=== PATIENT | male | born 1945 | race Caucasian/White ===

== ENCOUNTER 2016-09-30 10:33 | Day surgery (SDC) | payer OTHER ==
[~2016-09-30] VITALS: Ht 177.8 cm; Wt 73.5 kg
[~2016-09-30 10:33] MED LIST: CEFAZOLIN 1GM IVPB FOR OMNI 50 ML IV ONE; FENTANYL PF 100 MCG/2 ML VIAL. IV PRN; GLIM2TAB2 PO; GLIM4TAB2 PO; HYDROMORPHONE 2 MG/ML VIAL. IV PRN; INSU100V13 SQ; IV RINGERS,LACTATED 1000ML 1,000 ML IV SCH; LACT1CAP24 PO; LIDOCAINE 1% 1 ML SYRINGE. ID PRN; MIDO5TAB PO; MORPHINE SULFATE 2 MG/ML DISP.SYRIN. IV PRN; ONDANSETRON PF 4 MG/2 ML VIAL. IV PRN; PROCHLORPERAZINE 10 MG/2 ML VIAL. IV PRN
[2016-09-30] MEDS ORDERED: CEFAZOLIN 2GM PREMIX 0 ML IV ONE (10:43)
[2016-09-30] MEDS ORDERED: CEFAZOLIN 1GM IVPB FOR OMNI 50 ML IV ONE (10:44)
--- NOTE | 2016-09-30 11:21 | PDOC ---
BRIEF OPERATIVE NOTE Date: Sep 30, 2016 Pre-Op Diagnosis L plantar foot wound Post-Op Diagnosis same Procedure Performed I and D L plantar foot wound, down to muscle Surgeon Toby Anesthesia Type: General Blood Loss 50mL Complications none JUWAN WALLACE II, MD Sep 30, 2016 11:21
--- NOTE | 2016-09-30 11:22 | DISCH ---
DISCHARGE INSTRUCTIONS Condition on Discharge Condition on Discharge: Stable Activity After Discharge Activity Instructions for Disc: Activity as tolerated Other activity instructions: use walker, avoid putting weight on LLE Bathing Instructions: Shower-keep dressing dry Driving Instructions after Dis: Do not drive Weight Bearing Status after Di: Other, see below Diet after Discharge Diet after Discharge: Regular Wound Incision Care Wound/Incision Care: Keep wound/cast CDI, Keep wound elevated, Change dressing Contacting the DR. after DC Call your doctor for: Concerns you may have Follow-Up Follow up with: Toby in 1 wk JUWAN WALLACE II, MD Sep 30, 2016 11:22
[2016-09-30] MEDS ORDERED: INSULIN ASPART 100 UNIT/ML 10ML VIAL. SQ ONE ×2 (11:25→11:45)
[2016-09-30] MEDS ORDERED: PROPOFOL 20 ML IV ONE (12:03)
[2016-09-30] MEDS ORDERED: FENTANYL PF 100 MCG/2 ML VIAL. ONE (12:03)
[2016-09-30] MEDS ORDERED: LIDOCAINE 2% 100 MG/5 ML DISP.SYRIN. ONE (12:03)
[2016-09-30] MEDS ORDERED: LIDOCAINE 1% PF 30 ML VIAL. ONE (12:10)
[2016-09-30] MEDS ORDERED: BUPIVACAINE MPF 0.5% 30 ML VIAL. ONE (12:10)
[2016-09-30] MEDS ORDERED: DEXAMETHASONE SOD PHOS 20 MG/5 ML VIAL. ONE (12:32)
[2016-09-30] MEDS ORDERED: SEVOFLURANE 61 TO 120 MINUTES. IH ONE (12:32)
[2016-09-30] MEDS ORDERED: PHENYLEPHRINE in 0.9% NACL PF 1 MG/10 ML DISP.SYRIN. IV ONE (12:32)
[2016-09-30] MEDS ORDERED: ONDANSETRON PF 4 MG/2 ML VIAL. ONE (12:32)
[2016-09-30] MEDS ORDERED: EPHEDRINE PF IN SALINE 50 MG/5 ML DISP.SYRIN. IV ONE (12:33)
[2016-09-30] MEDS ORDERED: ONDA8TAB12 PO (13:13)
[2016-09-30] MEDS ORDERED: DOCU-27 PO (13:13)
[2016-09-30] MEDS ORDERED: HYDR-2762 PO (13:13)
[2016-09-30] MEDS ORDERED: HYDROCODONE/APAP 7.5/325MG TABLET. PO ONE (13:15)
[2016-09-30 13:54] VITALS: BP 137/58
--- NOTE | 2016-09-30 18:38 | OP ---
DATE OF SURGERY: 09/30/2016 SURGEON: Janes Wallace MD THAI MASSEUR: None. PREOPERATIVE DIAGNOSIS: Left diabetic plantar foot wound. POSTOPERATIVE DIAGNOSIS: Left diabetic plantar foot wound. PROCEDURE PERFORMED: 1. Irrigation and debridement down through muscle. 2. The wound size was approximately 7 cm x 7 cm and 1 cm deep. He still had a soft tissue covering over his fifth metatarsal distally. There was a fair amount of bleeding after the debridement as well. REASON FOR PROCEDURE: The patient is a gentleman, who I had seen in consultation initially in the hospital and performed a transmetatarsal amputation on his left lower extremity, which he had gone on to heal. He called my clinic recently and told me he noticed some drainage and foul odor coming from his foot and when I had seen and evaluated him, radiographs did not reveal any evidence of osteomyelitis, but he did have a large plantar foot wound with necrotic debris at its base. Given his sensation as well as the size of the wound, I discussed proceeding to the operating room for formal I and D and he elected to proceed. DESCRIPTION OF PROCEDURE: The patient was greeted in the preoperative area by myself. Correct extremity was marked and verified. He was taken to the operative suite and antibiotics started en route. Once he was in the OR, he was transferred gently supine to the OR table and secured to the bed with all pressure points padded and had successful induction of general anesthesia. We then proceeded to prep and drape left lower extremity in usual sterile fashion including Betadine paint. I then used a combination of a scalpel and rongeur to debride necrotic base of the wound as well as the wound edges. He had a fair amount of bleeding after this and I used cautery to help control some of the bleeding. I then irrigated this area with approximately 3000 mL sterile normal saline. We then cleansed and dried his left lower extremity and placed Xeroform in the wound bed followed by gauze and ABD, sterile cast padding, focusing on padding the heel as well and then Morro wrap. He tolerated the surgery well. At the conclusion of the surgery, he was awakened from anesthesia and transferred gently supine to the recovery room cart and taken to PACU in stable and extubated condition. Postop plan is to discharge him home today. He is to be nonweightbearing left lower extremity. We will see him back in clinic in 1 week to assess his wound healing progress. JANES WALLACE MD DR: MAXIMINO/brenda JOB#: [id number] / [id number]
== END 2016-09-30 17:15 | disposition home or self-care (01) ==
LOC: SURG 10:33
PROVIDERS: ATTEND Orthopaedic Surgery Sports Medicine
DX: L97.529 Non-pressure chronic ulcer of other part of left foot with unspecified severity (principal); E11.621 Type 2 diabetes mellitus with foot ulcer; I10 Essential (primary) hypertension; M19.90 Unspecified osteoarthritis, unspecified site
CPT/HCPCS: 11043; 11046; 82947; J0690; J1100; J2370; J2405; J2704; J3010; J1815; J3490

== ENCOUNTER 2016-10-20 12:54 | Inpatient (IN) | payer OTHER ==
[~2016-10-20] VITALS: Ht 177.8 cm; Wt 74.0 kg
[2016-10-20] VITALS (8 sets, daily range): BP systolic 74–140; BP diastolic 39–54
[~2016-10-20 12:54] MED LIST changes: -CEFAZOLIN 1GM IVPB FOR OMNI 50 ML IV ONE; +DOCU-27 PO; -FENTANYL PF 100 MCG/2 ML VIAL. IV PRN; +HYDR-2762 PO; -HYDROMORPHONE 2 MG/ML VIAL. IV PRN; -IV RINGERS,LACTATED 1000ML 1,000 ML IV SCH; -LIDOCAINE 1% 1 ML SYRINGE. ID PRN; -MORPHINE SULFATE 2 MG/ML DISP.SYRIN. IV PRN; +ONDA8TAB12 PO; -ONDANSETRON PF 4 MG/2 ML VIAL. IV PRN; -PROCHLORPERAZINE 10 MG/2 ML VIAL. IV PRN
[2016-10-20] MEDS ORDERED: DILTIAZEM 125 MG in IV DEXTROSE 5% 100 ML IV ONE (13:30)
[2016-10-20] MEDS ORDERED: DILTIAZEM IV PUSH 25 MG/5 ML VIAL. IVP ONE ×2 (13:30→14:00)
[2016-10-20] MEDS ORDERED: IV NORMAL SALINE 1000ML BAG 1,000 ML IV SCH (13:30)
--- NOTE | 2016-10-20 13:38 | PHYS DOC ---
Past Medical History Past Medical History: Diabetes-Type II, Hypotension Past Surgical History: Other Additional Past Surgical Histo: right foot bone scraping, R FOOT TOES AMPUTATION, L GREAT TOE AMPUTATION Alcohol Use: None Drug Use: None Adult General Chief Complaint Chief Complaint: WEAKNESS/GENERALIZED HPI HPI Patient is a 71 year old male who presents with complaint of generalized weakness per patient states his symptoms started yesterday. Patient states that due to worsening difficulty with ambulation he came to the emergency department for further evaluation. Patient was brought to the emergency department by EMS after they were called by the patient's daughter due to concern for the patient' s health. The patient states that he has been having chronic pain in his left foot secondary to a chronic wound. Patient states that he had the wound evaluated yesterday and had the wound dressed. Of note, the patient's dressings are currently soiled and wet. Patient states that he has been having shortness breath with exertion. Patient has history of diabetes mellitus. Patient denies any previous history of heart trouble. Review of Systems Review of Systems Constitutional: Lightheadedness, Denies fever or chills [] Eyes: Denies change in visual acuity, redness, or eye pain [] HENT: Denies nasal congestion or sore throat [] Respiratory: Dyspnea on exertion, denies cough [] Cardiovascular: Denies chest pain or edema [] GI: Denies abdominal pain, nausea, vomiting, bloody stools or diarrhea [] : Denies dysuria or hematuria [] Musculoskeletal: Left foot pain [] Integument: Left foot ulcer [] Neurologic: Denies headache, focal weakness or sensory changes [] Current Medications Current Medications Current Medications Medications (Trade) Dose Ordered Sig/Salena Start Time Stop Time Status Last Admin Dose Admin Diltiazem HCl (Cardizem) 20 mg 1X ONCE 10/20/16 14:00 10/20/16 14:01 DC 10/20/16 14:16 20 MG Diltiazem HCl 125 mg/Dextrose 125 ml @ 10 mls/hr 1X ONCE 10/20/16 13:30 10/21/16 01:59 10/20/16 13:49 10 MLS/HR Diltiazem HCl 20 mg 20 mg 1X ONCE 10/20/16 13:30 10/20/16 13:31 DC 10/20/16 13:35 20 MG Sodium Chloride (Iv Sodium Chloride 0.9% 1000ml Bag) 1,000 ml @ 100 mls/hr Q10H 10/20/16 13:30 10/20/16 23:29 10/20/16 13:45 100 MLS/HR Allergies Allergies Allergies Coded Allergies Type Severity Reaction Last Updated Verified Tetanus Vaccines and Toxoid Allergy Intermediate 10/20/16 Yes Physical Exam Physical Exam Constitutional: Alert, afebrile, appears ill. [] HENT: Normocephalic, atraumatic, bilateral external ears normal, oropharynx dry , no oral exudates, nose normal. [] Eyes: PERRLA, EOMI, conjunctiva normal, no discharge. [] Neck: Normal range of motion, no tenderness, supple, no stridor. [] Cardiovascular: Tachycardia, irregular rhythm, no murmur [] Lungs & Thorax: Bilateral breath sounds clear to auscultation [] Abdomen: Bowel sounds normal, soft, no tenderness, no masses, no pulsatile masses. [] Skin: Warm, dry, no erythema, no rash. [] Back: No tenderness, no CVA tenderness. [] Extremities: 5 cm necrotic diabetic ulcer along lateral aspect of left foot, status post bilateral mid foot amputations, no surrounding erythema or lymphangitic streaking. [] Neurologic: Alert and oriented X 3, normal motor function, normal sensory function, no focal deficits noted. [] Current Patient Data Vital Signs Vital Signs Date Time Temp Pulse Resp B/P Pulse Ox O2 Delivery O2 Flow Rate FiO2 10/20/16 14:16 132 137/65 10/20/16 13:05 98.3 28 97 Room Air 98.3 Lab Values Laboratory Tests Test 10/20/16 13:17 10/20/16 13:25 Glucose (Fingerstick) 351mg/dL (70-99) H White Blood Count 4.3x10^3/uL (4.0-11.0) Red Blood Count 4.98x10^6/uL (4.30-5.70) Hemoglobin 14.3g/dL (13.0-17.5) Hematocrit 42.9% (39.0-53.0) Mean Corpuscular Volume 86fL (79-100) Mean Corpuscular Hemoglobin 29pg (25-35) Mean Corpuscular Hemoglobin Concent 33g/dL (31-37) Red Cell Distribution Width 14.1% (11.5-14.5) Platelet Count 114x10^3/uL (140-400) L Neutrophils (%) (Auto) 96% (31-73) H Lymphocytes (%) (Auto) 2% (24-48) L Monocytes (%) (Auto) 1% (0-9) Eosinophils (%) (Auto) 0% (0-3) Basophils (%) (Auto) 1% (0-3) Neutrophils # (Auto) 4.1x10^3uL (1.8-7.7) Lymphocytes # (Auto) 0.1x10^3/uL (1.0-4.8) L Monocytes # (Auto) 0.0x10^3/uL (0.0-1.1) Eosinophils # (Auto) 0.0x10^3/uL (0.0-0.7) Basophils # (Auto) 0.0x10^3/uL (0.0-0.2) Segmented Neutrophils % 47% (35-66) Band Neutrophils % 47% (0-9) H Lymphocytes % 3% (24-48) L Basophils % 1% (0-3) Metamyelocytes % 2% (0-0) H Toxic Granulation Slight Toxic Vacuolation Mod Platelet Estimate Decreased (ADEQUATE) Giant Platelets Occ Erythrocyte Sedimentation Rate 99 (0-15) H Prothrombin Time 18.1SEC (11.7-14.0) H Prothrombin Time INR 1.6 (0.8-1.1) H Sodium Level 135mmol/L (136-145) L Potassium Level 4.4mmol/L (3.5-5.1) Chloride Level 96mmol/L (98-107) L Carbon Dioxide Level 24mmol/L (21-32) Anion Gap 15 (6-14) H Blood Urea Nitrogen 40mg/dL (8-26) H Creatinine 3.0mg/dL (0.7-1.3) H Estimated GFR (Cockcroft-Gault) 20.7 Glucose Level 331mg/dL (70-99) H Lactic Acid Level 5.9mmol/L (0.4-2.0) *H Calcium Level 8.9mg/dL (8.5-10.1) Magnesium Level 1.9mg/dL (1.8-2.4) Total Bilirubin 1.8mg/dL (0.2-1.0) H Direct Bilirubin 0.8mg/dL (0.0-0.2) H Aspartate Amino Transferase (AST) 23U/L (15-37) Alanine Aminotransferase (ALT) 10U/L (16-63) L Alkaline Phosphatase 106U/L (46-116) Creatine Kinase 427U/L (39-308) H Creatine Kinase MB (Mass) 3.8ng/mL (0.0-3.6) H Creatine Kinase MB Relative Index 0.9% (0-4) Troponin I Quantitative 0.026ng/mL (0.000-0.055) PM-Fzl-I-Type Natriuretic Peptide 31659ek/mL (0-124) H Total Protein 7.1g/dL (6.4-8.2) Albumin 1.9g/dL (3.4-5.0) L Thyroid Stimulating Hormone (TSH) 3.708uIU/mL (0.358-3.74) Laboratory Tests 10/20/16 13:25 Laboratory Tests 10/20/16 13:25 EKG EKG Interpreted by me: Heart rate 173, A. fib with RVR, left axis deviation, no acute ST/T-wave abnormalities present [] Radiology/Procedures Radiology/Procedures [facility] [address] [place] [address] IMAGING REPORT Signed PATIENT: ADAMA WIGGINS ACCOUNT: [id number] : 1945 LOCATION: ER AGE: 71 SEX: M EXAM STATUS: REG ER ORD. PHYSICIAN: SANGEETA DUARTE MD REASON: weakness, tachycardia, PROCEDURE: PORTABLE CHEST 1V EXAM: Chest one view. HISTORY: Weakness, tachycardia, hypotension. COMPARISON: 06/03/2016. FINDINGS: A frontal view of the chest is obtained. There is a mild airspace opacity in the right infrahilar distribution. There is no pneumothorax or pleural effusion. The heart is not enlarged. IMPRESSION: 1. Mild right infrahilar airspace opacity. Correlate for mild right middle lobe or right lower lobe pneumonia. DICTATED and SIGNED BY: MARCELA PRICE MD DATE: 10/20/16 1430 CC: ALCIRA TYSON MD; SANGEETA DUARTE MD ~ [] Course & Med Decision Making Course & Med Decision Making Pertinent Labs and Imaging studies reviewed. (See chart for details) Patient was started on IV diltiazem for rate control of A. fib with RVR. The patient's left foot wound also appears to be a potential source of infection as patient has exposed bone with surrounding foul-smelling necrotic tissue. The patient does not have a fever or white count but does have a significant bandemia as well as tachycardia. Patient also found to have elevated lactic acid levels. The patient meets criteria for severe sepsis. Patient's vital signs have remained stable and heart rate decreased with treatment with diltiazem. Patient was started on vancomycin and Zosyn for coverage of infected diabetic ulcer. Due to patient's evidence of heart strain and renal failure, I am concerned the patient may not be appropriate for full 30 mL per kilo bolus of IV fluids due to risk of fluid overload. For this reason the patient will be rehydrated at a slower rate then recommended for severe sepsis. I spoke with Dr. Simmons who accepted care patient in hospital. Consults were placed to Dr. Lawton of cardiology and Dr. Barba of nephrology. Critical care time excluding procedures: 45 minutes Dragon Disclaimer Dragon Disclaimer This electronic medical record was generated, in whole or in part, using a voice recognition dictation system. Departure Departure Impression: Primary Impression: Atrial fibrillation with RVR Additional Impressions: Severe sepsis Acute renal failure Lactic acidosis Uncontrolled diabetes mellitus Disposition: ADMITTED INPATIENT Admitting Physician: Elida Simmons Condition: GUARDED Referrals: RAYMUNDO PAREKH MD (PCP) Problem Qualifiers Additional Impressions: Acute renal failure Acute renal failure type: unspecified Qualified Code: N17.9 - Acute kidney failure, unspecified Uncontrolled diabetes mellitus Diabetes mellitus type: type 2 Diabetes mellitus complication status: with hyperglycemia Diabetes mellitus usp insulin use: unspecified usp insulin use status Qualified Code: E11.65 - Type 2 diabetes mellitus with hyperglycemia SANGEETA DUARTE MD Oct 20, 2016 13:38
[2016-10-20 13:41] LABS: BASO % 1 % (0-3); EOS % 0 % (0-3); HEMATOCRIT 42.9 % (39.0-53.0); HEMOGLOBIN 14.3 g/dL (13.0-17.5); LYMPH # 0.1 x10^3/uL (1.0-4.8); LYMPH % 2 % (24-48); MEAN CORPUSCULAR HEMOGLOBIN 29 pg (25-35); MEAN CORPUSCULAR HGB CONC 33 g/dL (31-37); MEAN CORPUSCULAR VOLUME 86 fL (79-100); MONO % 1 % (0-9); NEUT % 96 % (31-73); PLATELET COUNT 114 x10^3/uL (140-400); RED BLOOD COUNT 4.98 x10^6/uL (4.30-5.70); RED CELL DISTRIBUTION WIDTH 14.1 % (11.5-14.5); WHITE BLOOD COUNT 4.3 x10^3/uL (4.0-11.0)
[2016-10-20 13:49] LABS: INR 1.6 (0.8-1.1); PROTHROMBIN TIME PATIENT 18.1 SEC (11.7-14.0)
[2016-10-20 13:54] LABS: CALCIUM 8.9 mg/dL (8.5-10.1); GFR 20.7; POTASSIUM 4.4 mmol/L (3.5-5.1)
[2016-10-20 13:59] LABS: ALBUMIN 1.9 g/dL (3.4-5.0); DIRECT BILIRUBIN 0.8 mg/dL (0.0-0.2); MAGNESIUM 1.9 mg/dL (1.8-2.4); TOTAL BILIRUBIN 1.8 mg/dL (0.2-1.0); TOTAL PROTEIN 7.1 g/dL (6.4-8.2)
[2016-10-20 14:04] LABS: % BASOS 1 % (0-3)
[2016-10-20 14:06] LABS: PLT ESTIMATE DECREASED (ADEQUATE); TOXIC GRANULATION SLIGHT; TOXIC VACUOLATION MOD
[2016-10-20 14:07] LABS: CKMB INDEX 0.9 % (0-4); CKMB MASS 3.8 ng/mL (0.0-3.6)
--- NOTE | 2016-10-20 14:08 | EKG ---
[facility] [address] [place] [address] Test Date: 2016-10-20 Test Time: 13:09:44 Pat Name: ADAMA WIGGINS Department: Room: Gender: M [employer] Support [employer]st: : 1945 Requested By: SANGEETA DUARTE Order Number: [id number] Reading MD: Measurements Intervals [place] Rate: 173 P: 0 MA: 70 QRS: -62 QRSD: 70 T: 86 QT: 266 QTc: 459 Interpretive Statements SINUS TACHYCARDIA ATRIAL PREMATURE COMPLEX(ES) ABNORMAL LEFT AXIS DEVIATION LEFT ANTERIOR FASCICULAR BLOCK T ABNORMALITY IN HIGH LATERAL LEADS RI6.01 Unconfirmed report No previous ECG available for comparison
--- NOTE | 2016-10-20 14:34 | RAD ---
EXAM: Chest one view. HISTORY: Weakness, tachycardia, hypotension. COMPARISON: 06/03/2016. FINDINGS: A frontal view of the chest is obtained. There is a mild airspace opacity in the right infrahilar distribution. There is no pneumothorax or pleural effusion. The heart is not enlarged. IMPRESSION: 1. Mild right infrahilar airspace opacity. Correlate for mild right middle lobe or right lower lobe pneumonia.
[2016-10-20] MEDS ORDERED: PIP/TAZO PER PHARMACY MC PRN (14:45)
[2016-10-20] MEDS ORDERED: VANCOMYCIN PER PHARMACY MC PRN (14:45)
[2016-10-20] MEDS ORDERED: PIPERACILLIN/TAZOBACTAM 3.375 GM in IV NORMAL SALINE 50ML 50 ML IV ONE (15:00)
[2016-10-20] MEDS ORDERED: ONDANSETRON PF 4 MG/2 ML VIAL. IV PRN ×2 (15:00→15:12)
[2016-10-20] MEDS ORDERED: VANCOMYCIN 2 GM in IV NORMAL SALINE 500ML BAG 500 ML IV ONE (15:00)
[2016-10-20] MEDS ORDERED: FENTANYL PF 100 MCG/2 ML VIAL. IV PRN (15:00)
[2016-10-20] MEDS ORDERED: ACETAMINOPHEN 325 MG TABLET. PO PRN (15:00)
--- NOTE | 2016-10-20 15:25 | PDOC1 ---
History and Physical Date of Admission Date of Admission DATE: 10/20/16 TIME: 15:16 Identification/Chief Complaint Chief Complaint weak, dizzy Source Source: Caregiver, Chart review, Patient History of Present Illness History of Present Illness 71 y.o male who came from home, accompanied by son today, weakness, generalized. AT ER arrival, pale, abN labs including lactate 5.9, WBC normal, no fevers at home or at ER, no ESR, BUt nasty looking wound on left foot that has bone involvement, Seen by wound care already at ER, recs done. HX of osteo on other foot, has had all toes amputated there, AMbulates with cane. Also, Crea up to 3.0 , new, pt claims diarrhea x 4 days, no emesis. No fevers, ALso BS 330s, PCP unassigned, unknown hgba1c. CLaims only on SSI at home. No foot xrays done yet, AGAP 15, BAnds 47 Admitted for osteo, high BS, RHETT and dehydration ALso new a trial fib, 170s highest, now on carizem gtt at 15mcgs, HR 110, NO palpitations or CP, NO SOA Past Medical History Cardiovascular: HTN Infectious disease: Other (Osteomyelitis) Endocrine: Diabetes Past Surgical History Past Surgical History: Other (PICC line, amputation toes, R foot) Family History Family History: Hypertension, Family History Unknown Social History Smoke: No ALCOHOL: rare Drugs: None Current Medications Current Medications Current Medications Diltiazem HCl 20 mg 20 mg 1X ONCE IVP Last administered on 10/20/16 13:35; Start 10/20/16 at 13:30; Stop 10/20/16 at 13:31; Status DC Diltiazem HCl 125 mg/Dextrose 125 ml @ 10 mls/hr 1X ONCE IV Last administered on 10/20/16 13:49; Start 10/20/16 at 13:30; Stop 10/21/16 at 01:59 Sodium Chloride (Iv Sodium Chloride 0.9% 1000ml Bag) 1,000 ml @ 100 mls/hr Q10H IV Last administered on 10/20/16 13:45; Start 10/20/16 at 13:30; Stop at 23:29 Diltiazem HCl (Cardizem) 20 mg 1X ONCE IVP Last administered on 3/7/17at 14:16 ; Start 10/20/16 at 14:00; Stop 10/20/16 at 14:01; Status DC Vancomycin HCl (Vanco Per Pharmacy) 1 each PRN DAILY PRN MC SEE COMMENTS; Start 10/20/16 at 14:45; Status UNV Piperacillin Sod/ Tazobactam Sod 1 each 1 each PRN DAILY PRN MC SEE COMMENTS; Start 10/20/16 at 14:45; Status UNV Vancomycin HCl 2 gm/Sodium Chloride 500 ml @ 250 mls/hr 1X ONCE IV ; Start 10/20/16 at 15:00; Stop 10/20/16 at 16:59 Piperacillin Sod/ Tazobactam Sod/ Sodium Chloride (Zosyn/Iv Sodium Chloride 0.9 % 50ml) 50 ml @ 100 mls/hr 1X ONCE IV Last administered on 10/20/16t 15:04; Start 10/20/16 at 15:00; Stop 10/20/16 at 15:29 Ondansetron HCl (Zofran) 4 mg PRN Q8HRS PRN IV NAUSEA/VOMITING; Start 10/20/16 at 15:00; Stop 10/21/16 at 14:59; Status UNV Fentanyl Citrate 50 mcg 50 mcg PRN Q2HR PRN IV PAIN; Start 10/20/16 at 15:00; Stop 10/21/16 at 14:59; Status UNV Sodium Chloride (Iv Sodium Chloride 0.9% 1000ml Bag) 1,000 ml @ 100 mls/hr Q10H IV ; Start 10/20/16 at 14:56; Stop 10/21/16 at 14:55; Status UNV Acetaminophen (Tylenol) 650 mg PRN Q4HRS PRN PO FEVER; Start 10/20/16 at 15:00; Stop 10/21/16 at 14:59; Status UNV Active Scripts Active Reported Zofran Odt (Ondansetron) 8 Mg Tab.rapdis 1 Tab PO Q8HRS Colace (Docusate Sodium) 100 Mg Capsule 1 Cap PO BID Hydrocodone-Apap 7.5-325 (Hydrocodone Bit/Acetaminophen) 1 Each Tablet 1 Tab PO Q3HRS PRN Glimepiride 4 Mg Tablet 1 Tab PO BID Glimepiride 2 Mg Tablet 1 Tab PO BID Levemir (Insulin Detemir) 100 Unit/1 Ml Vial 30 Unit SQ HS Allergies Allergies: Coded Allergies: Tetanus Vaccines and Toxoid (Verified Allergy, Intermediate, 10/20/16) ROS General: YES: Other (gen weakness) PSYCHOLOGICAL ROS: No: Anxiety, Behavioral Disorder, Concentration difficultie , Decreased libido, Depression, Disorientation, Hallucinations, Hostility, Irritablity, Memory difficulties, Mood Swings, Obsessive thoughts, Other, Physical abuse, Sexual abuse, Sleep disturbances, Suicidal ideation Eyes: No Blurry vision, No Decreased vision, No Double vision, No Dry eyes, No Excessive tearing, No Eye Pain, No Itchy Eyes, No Loss of vision, No Other, No Photophobia, No Scotomata, No Uses contacts, No Uses glasses HEENT: No: Epistaxis, Heacaches, Hearing change, Nasal congestion, Nasal discharge, Oral lesions, Other, Sinus pain, Sneezing, Snoring, Sore Throat, Tinnitus, Vertigo, Visual Changes, Vocal changes ALLERGY AND IMMUNOLOGY: No: Hives, Insect Bite Sensitivity, Itchy/Watery Eyes, Nasal Congestion, Other, Post Nasal Drip, Seasonal Allergies Hematological and Lymphatic: No: Bleeding Problems, Blood Clots, Blood Transfusions, Brusing, Night Sweats, Other, Pallor, Swollen Lymph Nodes ENDOCRINE: No: Breast Changes, Galactorrhea, Hair Pattern Changes, Hot Flashes , Malaise/lethargy, Mood Swings, Other, Palpitations, Polydipsia/polyuria, Skin Changes, Temperature Intolerance, Unexpected Weight Changes Breast: No New/Changing Breast Lumps, No Nipple changes, No Nipple discharge, No Other Respiratory: No: Cough, Hemoptysis, Orthopnea, Other, Pleuritic Pain, SOB with excertion, Shortness of breath, Sputum Changes, Stridor, Tachypnea, Wheezing Cardiovascular: No Chest Pain, No Edema, No Lt Headedness, No Orthopnea, No Other, No Palpitations, No Paroxysmal Noc. Dyspnea Gastrointestinal: Yes Diarrhea Genitourinary: No , No , No , No , No , No , No , No Discharge, No Dysuria, No Flank Pain, No Frequency, No Hematuria, No Incontinence, No Other, No Pain, No Retention, No Urgency Neurological: No Behavorial Changes, No Bowel/Bladder ControlChng, No Confusion , No Dizziness, No Gait Disturbance, No Headaches, No Impaired Coord/balance, No Memory Loss, No Numbness/Tingling, No Other, No Seizures, No Speech Problems , No Tremors, No Visual Changes, No Weakness Skin: Yes Other (wound left foot) Physical Exam General: Alert, Oriented X3, Cooperative, No acute distress HEENT: Atraumatic, PERRLA, EOMI Lungs: Clear to auscultation, Normal air movement Heart: RRR, no gallops, no murmurs, other (irreg irreg) Cardiovascular: S1, S2 Breasts: Normal Abdomen: Normal bowel sounds, Soft, No tenderness, No hepatosplenomegaly, No masses Male Genitals Exam: normal genitalia, normal prostate Rectal Exam: not examined Extremities: No clubbing, No cyanosis Skin: Other (Left foot exposed bone, woundm, infection, foul drainage) Neuro: Normal gait, Normal speech, Strength at 5/5 X4 ext, Normal tone, Sensation intact, Cranial nerves 3-12 NL, Reflexes 2+ Psych/Mental Status: Mental status NL, Mood NL Vitals Vitals Vital Signs Date Time Temp Pulse Resp B/P Pulse Ox O2 Delivery O2 Flow Rate FiO2 10/20/16 15:07 100 101/58 95 Room Air 10/20/16 13:05 98.3 28 98.3 Labs Labs Laboratory Tests Test 10/20/16 13:17 10/20/16 13:25 10/20/16 14:50 Glucose (Fingerstick) 351mg/dL (70-99) White Blood Count 4.3x10^3/uL (4.0-11.0) Red Blood Count 4.98x10^6/uL (4.30-5.70) Hemoglobin 14.3g/dL (13.0-17.5) Hematocrit 42.9% (39.0-53.0) Mean Corpuscular Volume 86fL (79-100) Mean Corpuscular Hemoglobin 29pg (25-35) Mean Corpuscular Hemoglobin Concent 33g/dL (31-37) Red Cell Distribution Width 14.1% (11.5-14.5) Platelet Count 114x10^3/uL (140-400) Neutrophils (%) (Auto) 96% (31-73) Lymphocytes (%) (Auto) 2% (24-48) Monocytes (%) (Auto) 1% (0-9) Eosinophils (%) (Auto) 0% (0-3) Basophils (%) (Auto) 1% (0-3) Neutrophils # (Auto) 4.1x10^3uL (1.8-7.7) Lymphocytes # (Auto) 0.1x10^3/uL (1.0-4.8) Monocytes # (Auto) 0.0x10^3/uL (0.0-1.1) Eosinophils # (Auto) 0.0x10^3/uL (0.0-0.7) Basophils # (Auto) 0.0x10^3/uL (0.0-0.2) Segmented Neutrophils % 47% (35-66) Band Neutrophils % 47% (0-9) Lymphocytes % 3% (24-48) Basophils % 1% (0-3) Metamyelocytes % 2% (0-0) Toxic Granulation Slight Toxic Vacuolation Mod Platelet Estimate Decreased (ADEQUATE) Giant Platelets Occ Prothrombin Time 18.1SEC (11.7-14.0) Prothromb Time International Ratio 1.6 (0.8-1.1) Sodium Level 135mmol/L (136-145) Potassium Level 4.4mmol/L (3.5-5.1) Chloride Level 96mmol/L (98-107) Carbon Dioxide Level 24mmol/L (21-32) Anion Gap 15 (6-14) Blood Urea Nitrogen 40mg/dL (8-26) Creatinine 3.0mg/dL (0.7-1.3) Estimated GFR (Cockcroft-Gault) 20.7 Glucose Level 331mg/dL (70-99) Lactic Acid Level 5.9mmol/L (0.4-2.0) 3.7mmol/L (0.4-2.0) Calcium Level 8.9mg/dL (8.5-10.1) Magnesium Level 1.9mg/dL (1.8-2.4) Total Bilirubin 1.8mg/dL (0.2-1.0) Direct Bilirubin 0.8mg/dL (0.0-0.2) Aspartate Amino Transf (AST/SGOT) 23U/L (15-37) Alanine Aminotransferase (ALT/SGPT) 10U/L (16-63) Alkaline Phosphatase 106U/L (46-116) Creatine Kinase 427U/L (39-308) Creatine Kinase MB (Mass) 3.8ng/mL (0.0-3.6) Creatine Kinase MB Relative Index 0.9% (0-4) Troponin I Quantitative 0.026ng/mL (0.000-0.055) BG-Wzj-P-Type Natriuretic Peptide 78770rg/mL (0-124) Total Protein 7.1g/dL (6.4-8.2) Albumin 1.9g/dL (3.4-5.0) Thyroid Stimulating Hormone (TSH) 3.708uIU/mL (0.358-3.74) Laboratory Tests Test 10/20/16 13:17 10/20/16 13:25 10/20/16 14:50 Glucose (Fingerstick) 351mg/dL (70-99) White Blood Count 4.3x10^3/uL (4.0-11.0) Red Blood Count 4.98x10^6/uL (4.30-5.70) Hemoglobin 14.3g/dL (13.0-17.5) Hematocrit 42.9% (39.0-53.0) Mean Corpuscular Volume 86fL (79-100) Mean Corpuscular Hemoglobin 29pg (25-35) Mean Corpuscular Hemoglobin Concent 33g/dL (31-37) Red Cell Distribution Width 14.1% (11.5-14.5) Platelet Count 114x10^3/uL (140-400) Neutrophils (%) (Auto) 96% (31-73) Lymphocytes (%) (Auto) 2% (24-48) Monocytes (%) (Auto) 1% (0-9) Eosinophils (%) (Auto) 0% (0-3) Basophils (%) (Auto) 1% (0-3) Neutrophils # (Auto) 4.1x10^3uL (1.8-7.7) Lymphocytes # (Auto) 0.1x10^3/uL (1.0-4.8) Monocytes # (Auto) 0.0x10^3/uL (0.0-1.1) Eosinophils # (Auto) 0.0x10^3/uL (0.0-0.7) Basophils # (Auto) 0.0x10^3/uL (0.0-0.2) Segmented Neutrophils % 47% (35-66) Band Neutrophils % 47% (0-9) Lymphocytes % 3% (24-48) Basophils % 1% (0-3) Metamyelocytes % 2% (0-0) Toxic Granulation Slight Toxic Vacuolation Mod Platelet Estimate Decreased (ADEQUATE) Giant Platelets Occ Prothrombin Time 18.1SEC (11.7-14.0) Prothromb Time International Ratio 1.6 (0.8-1.1) Sodium Level 135mmol/L (136-145) Potassium Level 4.4mmol/L (3.5-5.1) Chloride Level 96mmol/L (98-107) Carbon Dioxide Level 24mmol/L (21-32) Anion Gap 15 (6-14) Blood Urea Nitrogen 40mg/dL (8-26) Creatinine 3.0mg/dL (0.7-1.3) Estimated GFR (Cockcroft-Gault) 20.7 Glucose Level 331mg/dL (70-99) Lactic Acid Level 5.9mmol/L (0.4-2.0) 3.7mmol/L (0.4-2.0) Calcium Level 8.9mg/dL (8.5-10.1) Magnesium Level 1.9mg/dL (1.8-2.4) Total Bilirubin 1.8mg/dL (0.2-1.0) Direct Bilirubin 0.8mg/dL (0.0-0.2) Aspartate Amino Transf (AST/SGOT) 23U/L (15-37) Alanine Aminotransferase (ALT/SGPT) 10U/L (16-63) Alkaline Phosphatase 106U/L (46-116) Creatine Kinase 427U/L (39-308) Creatine Kinase MB (Mass) 3.8ng/mL (0.0-3.6) Creatine Kinase MB Relative Index 0.9% (0-4) Troponin I Quantitative 0.026ng/mL (0.000-0.055) FS-Dtu-B-Type Natriuretic Peptide 98638lm/mL (0-124) Total Protein 7.1g/dL (6.4-8.2) Albumin 1.9g/dL (3.4-5.0) Thyroid Stimulating Hormone (TSH) 3.708uIU/mL (0.358-3.74) VTE Prophylaxis Ordered VTE Prophylaxis Devices: Yes VTE Pharmacological Prophylaxi: Yes Assessment/Plan Assessment/Plan 1. Left foot osteomyelitis, highly likely 2. DM 2 uncontrolled 3. HTN 4, NEw Atrial fib 5. Sepsis infectious in etiology with RHETT and organ dysfunction 6. RHETT, GI loss 7 Acute diarrhea 8. Hx osteomyelitis R foot 9. Sepsis with bandemia 10, Mild thrombocytopenia 11. AGAP met acidosis sec to sepsis PLAn: IV broad spectrum ID and ortho consult RAte control a fib CArds consult Start DVT prohy matthew given new atrial fib- WOF further dec plateelts PT/OT WOund care IVF Recheck BMP amparo NUtrition consult Wound care consult SSI high dose Check ESR Check hgba1c Recheck lactate amparo Await home meds Renal consulted at ER level WIll need 6-8 weeks antibiotics, might even amputation Seen at ER Dw pt and chris CASTRO complex DEYANIRA JUAN MD Oct 20, 2016 15:24
[2016-10-20] MEDS ORDERED: IV NORMAL SALINE 500ML BAG 500 ML IV ONE (15:30)
--- NOTE | 2016-10-20 16:05 | RAD ---
AP and lateral left foot radiographs 10/20/2016 Clinical history: Ulcer involving the plantar aspect of the left foot. History of osteomyelitis. AP and lateral digital radiographs of the left foot were obtained. Comparison study is dated 09/02/2016. 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 The proximal metaphysis of the left fifth metatarsal appears to have been resected since the previous examination. A portion of the proximal metaphysis of the left fourth metatarsal appears to have been resected. Soft tissue swelling and irregularity is seen. No acute fracture or dislocation is noted. Bony irregularity of the distal aspect of the medial cuneiform bone and the distal aspect of the proximal metaphysis of the left second third and fourth metatarsals is seen which is presumably postsurgical. These findings could be seen with osteomyelitis, however. Degenerative changes are seen involving the midtarsal joints in the left ankle, unchanged. Moderate enthesophyte formation formation is seen involving the plantar aspect of the left calcaneus. Impression: Postsurgical changes are seen involving the left foot as outlined above. Soft tissue swelling surrounds the distal aspect of the left foot. Bony irregularity is seen in this region which could reflect surgical changes; however, osteomyelitis is not excluded.
--- NOTE | 2016-10-20 16:29 | ACF ---
Admission Forms Criteria OSTEOMYELITIS Clinical Indications for Admission to Inpatient Care (Place 'X' for any and all applicable criteria) Admission is indicated by ANY ONE of the following (1)(2)(3)(4)(5)(6): [ ] I. Significant systemic illness indicated by 2 or more of the following: [ ]a) Core (eg rectal) temperature greater or equal wt803Y(37.8C) in an adult [ ]b) Oral temperature[A] greater than or equal to 99.3 degrees F ( 37.4 degrees C) in an adult [ ]c) Heart rate greater than 90 beats per minute [ ]d) Respiratory rate greater than 20 breaths per minute or PaCO2 less than 32 mm Hg (4.3 kPa) [ ]e) White blood cell count > 12,000/mm3 (12 x109/L) or < 4000/mm3 ( 4 x109/L) or > 10% band cells [ ] II. Hemodynamic instability [ ] III. Severe pain requiring acute inpatient management [ ] IV. Bacteremia [ ] V. Mental status change (new) [X] . Limb-threatening infection [ ] VII. Suspected necrotizing soft tissue infection (e.g., gas in tissue) [ ] VIII.Surgical intervention required (e.g., bone or soft tissue debridement, removal of foreign body, or revascularization procedure) not performable in outpatient or emergency department level of care(7) [ ] IX. Appropriate monitoring and therapy (IV antibiotics) cannot be immediately arranged for home or outpatient setting [ ] XI. Outpatient treatment failure (e.g., resistant organism identified, adverse medication effect, progression or lack of sufficient improvement of infection) [ ] XII. High-risk comorbid condition present including ANY ONE of the following : [ ]a) Poorly controlled diabetes (e.g., HbA1c greater than 10% (0.1)) [ ]b) Vascular insufficiency to affected area [ ]c) Cirrhosis [ ]d) Neutropenia [ ]e) Asplenia [ ]f) Immunosuppression (e.g., chronic systemic corticosteroid use) [ ]g) Symptomatic heart failure [ ] XIII.Joint involvement (e.g., septic arthritis) suspected [ ] XIV. Vertebral osteomyelitis [ ] XV. Skull-base osteomyelitis (e.g.,"malignant external otitis")[A](8)(9)(10 ) Extended stay beyond goal length of stay may be needed for(1)(3)(4)(5)(24)(25): [ ]a) Inadequate clinical response to antibiotics (e.g., continued fever, hypotension) [ ]b) Bacteremia [ ]c) Surgical intervention needed (e.g., beyond superficial debridement)(26) [ ]d) Vertebral osteomyelitis with spinal cord compression, abscess formation, or mechanical instability [ ]e) Antibiotic-resistant organism identified (e.g., methicillin-resistant Staphylococcal aureus) [ ]f) Deep venous thrombosis [ ]g) Unstable comorbidities (e.g., heart failure, renal insufficiency, immunosuppressed state)(28) The original [facility] [employer] content created by [facility] [employer] has been revised. The portions of the content which have been revised are identified through the use of italic text or in bold, and [facility] has neither reviewed nor approved the modified material. All other unmodified content is copyright [facility] [employer] 2016. Admission Criteria Met?: Yes RACHEL BHATT Oct 20, 2016 16:29
[2016-10-20] MEDS: GLIMEPIRIDE 2 MG TABLET PO SCH (17:32)
[2016-10-20] MEDS: INSULIN ASPART 300 UNITS/3 ML INSULN.PEN SQ SCH (18:23)
[2016-10-20] MEDS ORDERED: DOPAMINE 400MG/250ML PREMIX 250 ML IV PRN (19:30)
[2016-10-20] MEDS: IV NORMAL SALINE 1000ML BAG 1,000 ML IV SCH (19:46)
[2016-10-20] MEDS ORDERED: DIGOXIN 500 MCG/2 ML AMPUL. IV ONE (20:45)
[2016-10-20] MEDS ORDERED: INSULIN DETEMIR 300 UNITS/3 ML INSULN.PEN. SQ SCH (21:00)
[2016-10-20] MEDS ORDERED: GLIMEPIRIDE 2 MG TABLET PO SCH (21:00)
[2016-10-20] MEDS: DOCUSATE SODIUM 100 MG CAPSULE PO SCH (21:00)
[2016-10-20] MEDS: ONDANSETRON ODT 4 MG TAB.RAPDIS PO SCH (21:00)
[2016-10-20] MEDS: PIPERACILLIN/TAZOBACTAM 2.25 GM in IV NORMAL SALINE 50ML 50 ML IV SCH (23:30)
[2016-10-21] VITALS (26 sets, daily range): BP systolic 80–120; BP diastolic 43–72
[2016-10-21] MEDS ORDERED: DIGOXIN 500 MCG/2 ML AMPUL. IV ONE ×2 (02:00→04:15)
[2016-10-21 04:08] LABS: BASO % 0 % (0-3); EOS % 0 % (0-3); HEMATOCRIT 38.5 % (39.0-53.0); HEMOGLOBIN 12.9 g/dL (13.0-17.5); LYMPH # 0.3 x10^3/uL (1.0-4.8); LYMPH % 4 % (24-48); MEAN CORPUSCULAR HEMOGLOBIN 28 pg (25-35); MEAN CORPUSCULAR HGB CONC 34 g/dL (31-37); MEAN CORPUSCULAR VOLUME 85 fL (79-100); MONO % 5 % (0-9); NEUT % 91 % (31-73); PLATELET COUNT 90 x10^3/uL (140-400); RED BLOOD COUNT 4.56 x10^6/uL (4.30-5.70); RED CELL DISTRIBUTION WIDTH 14.3 % (11.5-14.5); WHITE BLOOD COUNT 8.1 x10^3/uL (4.0-11.0)
[2016-10-21 04:20] LABS: CALCIUM 8.2 mg/dL (8.5-10.1); CREATININE 3.1 mg/dL (0.7-1.3); POTASSIUM 4.2 mmol/L (3.5-5.1)
[2016-10-21] MEDS: DILTIAZEM 125 MG in IV DEXTROSE 5% 100 ML IV PRN ×2 (05:12→23:03)
[2016-10-21] MEDS: ONDANSETRON ODT 4 MG TAB.RAPDIS PO SCH ×2 (06:17→14:00)
[2016-10-21] MEDS: PIPERACILLIN/TAZOBACTAM 2.25 GM in IV NORMAL SALINE 50ML 50 ML IV SCH ×4 (06:19→23:32)
--- NOTE | 2016-10-21 07:42 | PDOC ---
Infectious Disease Note Vital Sign Vital Signs Vital Signs Date Time Temp Pulse Resp B/P Pulse Ox O2 Delivery O2 Flow Rate FiO2 10/21/16 06:30 129 20 111/50 95 Room Air 10/21/16 06:00 99.1 99.1 10/20/16 20:02 96.0 Labs Lab Laboratory Tests Test 10/20/16 13:17 10/20/16 13:25 10/20/16 14:50 10/20/16 17:10 Glucose (Fingerstick) 351mg/dL (70-99) White Blood Count 4.3x10^3/uL (4.0-11.0) Red Blood Count 4.98x10^6/uL (4.30-5.70) Hemoglobin 14.3g/dL (13.0-17.5) Hematocrit 42.9% (39.0-53.0) Mean Corpuscular Volume 86fL (79-100) Mean Corpuscular Hemoglobin 29pg (25-35) Mean Corpuscular Hemoglobin Concent 33g/dL (31-37) Red Cell Distribution Width 14.1% (11.5-14.5) Platelet Count 114x10^3/uL (140-400) Neutrophils (%) (Auto) 96% (31-73) Lymphocytes (%) (Auto) 2% (24-48) Monocytes (%) (Auto) 1% (0-9) Eosinophils (%) (Auto) 0% (0-3) Basophils (%) (Auto) 1% (0-3) Neutrophils # (Auto) 4.1x10^3uL (1.8-7.7) Lymphocytes # (Auto) 0.1x10^3/uL (1.0-4.8) Monocytes # (Auto) 0.0x10^3/uL (0.0-1.1) Eosinophils # (Auto) 0.0x10^3/uL (0.0-0.7) Basophils # (Auto) 0.0x10^3/uL (0.0-0.2) Segmented Neutrophils % 47% (35-66) Band Neutrophils % 47% (0-9) Lymphocytes % 3% (24-48) Basophils % 1% (0-3) Metamyelocytes % 2% (0-0) Toxic Granulation Slight Toxic Vacuolation Mod Platelet Estimate Decreased (ADEQUATE) Giant Platelets Occ Erythrocyte Sedimentation Rate 99 (0-15) Prothrombin Time 18.1SEC (11.7-14.0) Prothromb Time International Ratio 1.6 (0.8-1.1) Sodium Level 135mmol/L (136-145) Potassium Level 4.4mmol/L (3.5-5.1) Chloride Level 96mmol/L (98-107) Carbon Dioxide Level 24mmol/L (21-32) Anion Gap 15 (6-14) Blood Urea Nitrogen 40mg/dL (8-26) Creatinine 3.0mg/dL (0.7-1.3) Estimated GFR (Cockcroft-Gault) 20.7 Glucose Level 331mg/dL (70-99) Hemoglobin A1c 9.3% (4.8-5.6) Lactic Acid Level 5.9mmol/L (0.4-2.0) 3.7mmol/L (0.4-2.0) 2.5mmol/L (0.4-2.0) Calcium Level 8.9mg/dL (8.5-10.1) Magnesium Level 1.9mg/dL (1.8-2.4) Total Bilirubin 1.8mg/dL (0.2-1.0) Direct Bilirubin 0.8mg/dL (0.0-0.2) Aspartate Amino Transf (AST/SGOT) 23U/L (15-37) Alanine Aminotransferase (ALT/SGPT) 10U/L (16-63) Alkaline Phosphatase 106U/L (46-116) Creatine Kinase 427U/L (39-308) Creatine Kinase MB (Mass) 3.8ng/mL (0.0-3.6) Creatine Kinase MB Relative Index 0.9% (0-4) Troponin I Quantitative 0.026ng/mL (0.000-0.055) CI-Eys-B-Type Natriuretic Peptide 59776ko/mL (0-124) Total Protein 7.1g/dL (6.4-8.2) Albumin 1.9g/dL (3.4-5.0) Thyroid Stimulating Hormone (TSH) 3.708uIU/mL (0.358-3.74) Test 10/20/16 17:31 10/20/16 20:47 10/21/16 03:10 Glucose (Fingerstick) 327mg/dL (70-99) 285mg/dL (70-99) White Blood Count 8.1x10^3/uL (4.0-11.0) Red Blood Count 4.56x10^6/uL (4.30-5.70) Hemoglobin 12.9g/dL (13.0-17.5) Hematocrit 38.5% (39.0-53.0) Mean Corpuscular Volume 85fL (79-100) Mean Corpuscular Hemoglobin 28pg (25-35) Mean Corpuscular Hemoglobin Concent 34g/dL (31-37) Red Cell Distribution Width 14.3% (11.5-14.5) Platelet Count 90x10^3/uL (140-400) Neutrophils (%) (Auto) 91% (31-73) Lymphocytes (%) (Auto) 4% (24-48) Monocytes (%) (Auto) 5% (0-9) Eosinophils (%) (Auto) 0% (0-3) Basophils (%) (Auto) 0% (0-3) Neutrophils # (Auto) 7.4x10^3uL (1.8-7.7) Lymphocytes # (Auto) 0.3x10^3/uL (1.0-4.8) Monocytes # (Auto) 0.4x10^3/uL (0.0-1.1) Eosinophils # (Auto) 0.0x10^3/uL (0.0-0.7) Basophils # (Auto) 0.0x10^3/uL (0.0-0.2) Sodium Level 133mmol/L (136-145) Potassium Level 4.2mmol/L (3.5-5.1) Chloride Level 99mmol/L (98-107) Carbon Dioxide Level 23mmol/L (21-32) Anion Gap 11 (6-14) Blood Urea Nitrogen 50mg/dL (8-26) Creatinine 3.1mg/dL (0.7-1.3) Estimated GFR (Cockcroft-Gault) 20.0 Glucose Level 72mg/dL (70-99) Calcium Level 8.2mg/dL (8.5-10.1) Objective Assessment Extensive left foot infection Septic shock Lactic acidosis DM Plan Plan of Care zyvox and zosyn supportive care will need I and D, likely BKA JASVIR DE LEON MD Oct 21, 2016 07:42
[2016-10-21] MEDS: INSULIN ASPART 300 UNITS/3 ML INSULN.PEN SQ SCH ×3 (08:00→17:00)
[2016-10-21] MEDS: GLIMEPIRIDE 2 MG TABLET PO SCH (08:00)
[2016-10-21] MEDS: DEXTROSE 50% 25 GM / 50ML DISP.SYRIN. IV PRN ×3 (08:29→23:30)
--- NOTE | 2016-10-21 09:02 | PDOC2 ---
CARDIAC CONSULT DATE OF CONSULT Date of Consult DATE: 10/21/16 TIME: 08:37 REASON FOR CONSULT Reason for Consult: AFIB RVR REFERRING PHYSICIAN Referring Physician: Zonia SOURCE Source: Chart review HISTORY OF PRESENT ILLNESS HISTORY OF PRESENT ILLNESS This is a pleasant 71 yo male admitted for complains of increasing weakness. Pt has been feeling fatigue in the last 3 weeks and felt like it is not getting any better. He also has been having episodes of dizziness. He has a well established peripheral neuropathy. Denies any chest pain, palpitations. Occasional SOA primarily with exertion. Upon admission he has been noted with chronic left foot wound with swelling with likely osteomyelitis as well as sepsis. He is significant for bacteremia and osteomyelitis from previous admission with amputations of toes. Upon admission he has been noted with RHETT with no known renal injury in the past as well as AFIB RVR. He denies any forms arrhythmias in the past and at the same time no prior VTE, CAD and could not remember any prior stress test. Denies any anticoagulation, bleeding or clotting syndromes. He continues to smoke cigar and no known hx of COPD. PAST MEDICAL HISTORY Cardiovascular: HTN, Other (right PAD) Pulmonary: No pertinent hx CENTRAL NERVOUS SYSTEM: Periperal neuropathy GI: Constipation Heme/Onc: No pertinent hx Hepatobiliary: No pertinent hx Psych: No pertinent hx Musculoskeletal: Osteoarthritis, Other (foot osteomyelitis) Rheumatologic: No pertinent hx Infectious disease: Other (sepsis MSSA) ENT: No pertinent hx Renal/: No pertinent hx Endocrine: Diabetes Dermatology: Other (left foot wound, s/p multiple toe amputations) PAST SURGICAL HISTORY Past Surgical History: Other (TMA right foot, Left big toe amputation) FAMILY HISTORY Family History: Coronary Artery Disease (sister), Diabetes SOCIAL HISTORY Smoke: <1 pack per day (cigars in the past) ALCOHOL: none Drugs: None Lives: with Family CURRENT MEDICATIONS CURRENT MEDICATIONS Current Medications Medications (Trade) Dose Ordered Sig/Salena Route PRN Reason Start Time Stop Time Status Last Admin Dose Admin Diltiazem HCl 20 mg 20 mg 1X ONCE IVP 10/20/16 13:30 10/20/16 13:31 DC 10/20/16 13:35 Diltiazem HCl 125 mg/Dextrose 125 ml @ 10 mls/hr 1X ONCE IV 10/20/16 13:30 10/20/16 19:37 DC 10/20/16 13:49 Sodium Chloride (Iv Sodium Chloride 0.9% 1000ml Bag) 1,000 ml @ 100 mls/hr Q10H IV 10/20/16 13:30 10/20/16 23:29 DC 10/20/16 13:45 Diltiazem HCl (Cardizem) 20 mg 1X ONCE IVP 10/20/16 14:00 10/20/16 14:01 DC 10/20/16 14:16 Vancomycin HCl 1 each 1 each PRN DAILY PRN MC SEE COMMENTS 10/20/16 14:45 10/21/16 07:42 DC 10/20/16 16:49 Vancomycin HCl 2 gm/Sodium Chloride 500 ml @ 250 mls/hr 1X ONCE IV 10/20/16 15:00 10/20/16 16:59 DC 10/20/16 15:45 Piperacillin Sod/ Tazobactam Sod 3.375 gm/Sodium Chloride 50 ml @ 100 mls/hr 1X ONCE IV 10/20/16 15:00 10/20/16 15:29 DC 10/20/16 15:04 Sodium Chloride (Iv Sodium Chloride 0.9% 1000ml Bag) 1,000 ml @ 100 mls/hr Q10H IV 10/20/16 15:30 10/21/16 15:29 10/20/16 19:46 Insulin Aspart (Novolog) 0-9 UNITS TIDWMEALS SQ 10/20/16 17:00 10/20/16 18:23 Dextrose 12.5 gm PRN Q15MIN PRN IV SEE COMMENTS 10/20/16 15:15 10/21/16 08:29 Docusate Sodium (Colace) 100 mg BID PO 10/20/16 21:00 10/20/16 21:00 Glimepiride (Amaryl) 4 mg BIDWMEALS PO 10/20/16 17:00 10/20/16 17:32 Insulin Detemir (Levemir) 30 units QHS SQ 10/20/16 21:00 10/20/16 21:03 Ondansetron HCl 4 mg 4 mg Q8HRS PO 10/20/16 22:00 10/21/16 06:17 Piperacillin Sod/ Tazobactam Sod 2.25 gm/Sodium Chloride 50 ml @ 100 mls/hr Q6HRS IV 10/21/16 00:00 10/21/16 06:19 Dopamine HCl/ Dextrose 250 ml @ 13.183 mls/ hr CONT PRN IV SEE I/O RECORD 10/20/16 19:30 10/20/16 20:38 Digoxin (Lanoxin) 250 mcg 1X ONCE IV 10/20/16 20:45 10/20/16 20:46 DC 10/20/16 21:02 Digoxin (Lanoxin) 250 mcg 1X ONCE IV 10/21/16 02:00 10/21/16 02:01 DC 10/21/16 01:48 Digoxin 250 mcg 250 mcg 1X ONCE IV 10/21/16 04:15 10/21/16 04:16 DC 10/21/16 04:12 Diltiazem HCl/ Dextrose (Cardizem) 125 ml @ 0 mls/hr CONT PRN IV SEE I/O RECORD 10/21/16 04:15 10/21/16 05:12 ALLERGIES ALLERGIES: Coded Allergies: Tetanus Vaccines and Toxoid (Verified Allergy, Intermediate, 10/20/16) ROS Review of System 14 point ROS evaluated with pertinent positives noted per HPI PHYSICAL EXAM General: Alert, Oriented X3, Cooperative, No acute distress HEENT: Atraumatic, Mucous membr. moist/pink Lungs: Other (diminished bases) Heart: Normal S1, Normal S2, Other (2/6 systolic murmur to LLS border; AFIB) Abdomen: Soft, No tenderness Skin: Other (left foot wound) Neuro: Normal speech, Sensation intact Psych/Mental Status: Mental status NL, Mood NL MUSCULOSKELETAL: Osteoarthritic changes both hands VITALS VITALS Vital Signs Date Time Temp Pulse Resp B/P Pulse Ox O2 Delivery O2 Flow Rate FiO2 10/21/16 08:00 125 20 119/72 96 Room Air 10/21/16 06:00 99.1 99.1 10/20/16 20:02 96.0 LABS Lab: Laboratory Tests Test 10/20/16 13:17 10/20/16 13:25 10/20/16 14:50 10/20/16 17:10 Glucose (Fingerstick) 351mg/dL (70-99) White Blood Count 4.3x10^3/uL (4.0-11.0) Red Blood Count 4.98x10^6/uL (4.30-5.70) Hemoglobin 14.3g/dL (13.0-17.5) Hematocrit 42.9% (39.0-53.0) Mean Corpuscular Volume 86fL (79-100) Mean Corpuscular Hemoglobin 29pg (25-35) Mean Corpuscular Hemoglobin Concent 33g/dL (31-37) Red Cell Distribution Width 14.1% (11.5-14.5) Platelet Count 114x10^3/uL (140-400) Neutrophils (%) (Auto) 96% (31-73) Lymphocytes (%) (Auto) 2% (24-48) Monocytes (%) (Auto) 1% (0-9) Eosinophils (%) (Auto) 0% (0-3) Basophils (%) (Auto) 1% (0-3) Neutrophils # (Auto) 4.1x10^3uL (1.8-7.7) Lymphocytes # (Auto) 0.1x10^3/uL (1.0-4.8) Monocytes # (Auto) 0.0x10^3/uL (0.0-1.1) Eosinophils # (Auto) 0.0x10^3/uL (0.0-0.7) Basophils # (Auto) 0.0x10^3/uL (0.0-0.2) Segmented Neutrophils % 47% (35-66) Band Neutrophils % 47% (0-9) Lymphocytes % 3% (24-48) Basophils % 1% (0-3) Metamyelocytes % 2% (0-0) Toxic Granulation Slight Toxic Vacuolation Mod Platelet Estimate Decreased (ADEQUATE) Giant Platelets Occ Erythrocyte Sedimentation Rate 99 (0-15) Prothrombin Time 18.1SEC (11.7-14.0) Prothromb Time International Ratio 1.6 (0.8-1.1) Sodium Level 135mmol/L (136-145) Potassium Level 4.4mmol/L (3.5-5.1) Chloride Level 96mmol/L (98-107) Carbon Dioxide Level 24mmol/L (21-32) Anion Gap 15 (6-14) Blood Urea Nitrogen 40mg/dL (8-26) Creatinine 3.0mg/dL (0.7-1.3) Estimated GFR (Cockcroft-Gault) 20.7 Glucose Level 331mg/dL (70-99) Hemoglobin A1c 9.3% (4.8-5.6) Lactic Acid Level 5.9mmol/L (0.4-2.0) 3.7mmol/L (0.4-2.0) 2.5mmol/L (0.4-2.0) Calcium Level 8.9mg/dL (8.5-10.1) Magnesium Level 1.9mg/dL (1.8-2.4) Total Bilirubin 1.8mg/dL (0.2-1.0) Direct Bilirubin 0.8mg/dL (0.0-0.2) Aspartate Amino Transf (AST/SGOT) 23U/L (15-37) Alanine Aminotransferase (ALT/SGPT) 10U/L (16-63) Alkaline Phosphatase 106U/L (46-116) Creatine Kinase 427U/L (39-308) Creatine Kinase MB (Mass) 3.8ng/mL (0.0-3.6) Creatine Kinase MB Relative Index 0.9% (0-4) Troponin I Quantitative 0.026ng/mL (0.000-0.055) [id number]-Type Natriuretic Peptide 35687sn/mL (0-124) Total Protein 7.1g/dL (6.4-8.2) Albumin 1.9g/dL (3.4-5.0) Thyroid Stimulating Hormone (TSH) 3.708uIU/mL (0.358-3.74) Test 10/20/16 17:31 10/20/16 20:47 10/21/16 03:10 10/21/16 04:06 Glucose (Fingerstick) 327mg/dL (70-99) 285mg/dL (70-99) 62mg/dL (70-99) White Blood Count 8.1x10^3/uL (4.0-11.0) Red Blood Count 4.56x10^6/uL (4.30-5.70) Hemoglobin 12.9g/dL (13.0-17.5) Hematocrit 38.5% (39.0-53.0) Mean Corpuscular Volume 85fL (79-100) Mean Corpuscular Hemoglobin 28pg (25-35) Mean Corpuscular Hemoglobin Concent 34g/dL (31-37) Red Cell Distribution Width 14.3% (11.5-14.5) Platelet Count 90x10^3/uL (140-400) Neutrophils (%) (Auto) 91% (31-73) Lymphocytes (%) (Auto) 4% (24-48) Monocytes (%) (Auto) 5% (0-9) Eosinophils (%) (Auto) 0% (0-3) Basophils (%) (Auto) 0% (0-3) Neutrophils # (Auto) 7.4x10^3uL (1.8-7.7) Lymphocytes # (Auto) 0.3x10^3/uL (1.0-4.8) Monocytes # (Auto) 0.4x10^3/uL (0.0-1.1) Eosinophils # (Auto) 0.0x10^3/uL (0.0-0.7) Basophils # (Auto) 0.0x10^3/uL (0.0-0.2) Sodium Level 133mmol/L (136-145) Potassium Level 4.2mmol/L (3.5-5.1) Chloride Level 99mmol/L (98-107) Carbon Dioxide Level 23mmol/L (21-32) Anion Gap 11 (6-14) Blood Urea Nitrogen 50mg/dL (8-26) Creatinine 3.1mg/dL (0.7-1.3) Estimated GFR (Cockcroft-Gault) 20.0 Glucose Level 72mg/dL (70-99) Calcium Level 8.2mg/dL (8.5-10.1) ECHOCARDIOGRAM ECHOCARDIOGRAM <Conclusion> Left ventricle systolic function is normal. The Ejection Fraction is 55%. The left atrium size is normal. The right atrium size is normal. The aortic valve is calcified but opens well. The aortic valve is trileaflet. Doppler and Color Flow revealed mild mitral regurgitation. The mitral valve leaflets are thickened. Doppler and Color Flow revealed mild tricuspid regurgitation. The PA pressure was estimated at 47 mmHg. The pulmonic valve is not well visualized. The IVC is dilated and collapses <50% with inspiration. There is no evidence of significant pericardial effusion. DATE: 06/10/16 1854 ASSESSMENT/PLAN ASSESSMENT/PLAN 1. PAFIB with RVR: new onset. Suspect induced by infectious process. Now rate controlled 2. Sepsis with likely L foot osteomyelitis: MSSA and osteomyelitis from previous admission 3. Hypotension: multifactorial as above 4. Associated atypical pneumonia? 5. RHETT 6. DM2 with DPN: uncontrolled, A1C 9 7. Coagulopathy: INR 1.6. Malnutrition/lack Vit K? 8. Protein malnutrition: alb 1.9 9. Deconditioning/fatigue 10. Hx of orthostasis 11. Suspect poor compliance 12. Known RLE PAD: no complains of claudications Recommendations 1. I & D to left foot pending today per ortho this afternoon 2. Antibiotics per ID, Nephrology has been consulted 3. DC dopamine. Continue with cardizem drip. Will reevaluate for PO regimen post surgery once po resumed 4. Pt has received Dig overnight. No further Dig at this time Albumin today and continue IV hydration' 5. Previous TTE with normal wall motion and preserved EF. Will repeat TTE today. 6. INR, lipids, TSH 7. ASA once post op. Start on statin 8. Will reevaluate for anticoagulation 24 hours post surgery if OK with ortho. OAC/NOAC if no conversion to SR 9. If AFIB RVR refractory and pressure remains low then will consider 24 hour amiodarone. 10. If conversion to SR is noted then will plan for event monitor and note AFIB burden 11. Will also consider for stress test as an outpt for further risk stratification given his significant cardiac risk factors 12. Smoking cessation Problems: ROSAS SCHNEIDER APRN Oct 21, 2016 09:02
[2016-10-21] MEDS: DOCUSATE SODIUM 100 MG CAPSULE PO SCH ×2 (09:20→20:43)
[2016-10-21] MEDS: IV NORMAL SALINE 1000ML BAG 1,000 ML IV SCH ×4 (09:21→23:04)
[2016-10-21] MEDS ORDERED: MAGNESIUM SULFATE 2GM 50 ML IV PRN (09:45)
[2016-10-21] MEDS ORDERED: ALBUMIN HUMAN 5% 500 ML IV ONE (09:45)
[2016-10-21] MEDS ORDERED: IV RINGERS,LACTATED 1000ML 1,000 ML IV SCH ×2 (09:50→11:19)
--- NOTE | 2016-10-21 09:50 | PDOC2 ---
CONSULT Date of Consult Date of Consult DATE: 10/21/16 TIME: 09:38 Reason for Consult Reason for Consult: RHETT Referring Physician Referring Physician: Dr Simmons Identification/Chief Complaint Chief Complaint Foot wound Problems: Source Source: Chart review, Patient History of Present Illness Reason for Visit: as dictated Past Medical History Cardiovascular: HTN, Other (right PAD) CENTRAL NERVOUS SYSTEM: Periperal neuropathy Musculoskeletal: Other (foot osteomyelitis) Infectious disease: Other (sepsis MSSA) Endocrine: Diabetes Past Surgical History Past Surgical History: Other (TMA right foot, Left big toe amputation) Family History Family History: Hypertension, Family History Unknown Social History <1 pack per day (cigars in the past) ALCOHOL: none Drugs: None Current Problem List Problem List Problems Medical Problems: (1) Acute renal failure Status: Acute (2) Atrial fibrillation with RVR Status: Acute (3) Lactic acidosis Status: Acute (4) Severe sepsis Status: Acute (5) Uncontrolled diabetes mellitus Status: Acute Current Medications Current Medications Current Medications Diltiazem HCl 20 mg 20 mg 1X ONCE IVP Last administered on 10/20/16 13:35; Start 10/20/16 at 13:30; Stop 10/20/16 at 13:31; Status DC Diltiazem HCl 125 mg/Dextrose 125 ml @ 10 mls/hr 1X ONCE IV Last administered on 10/20/16 13:49; Start 10/20/16 at 13:30; Stop 10/20/16 at 19:37; Status DC Sodium Chloride (Iv Sodium Chloride 0.9% 1000ml Bag) 1,000 ml @ 100 mls/hr Q10H IV Last administered on 10/20/16 13:45; Start 10/20/16 at 13:30; Stop at 23:29; Status DC Diltiazem HCl (Cardizem) 20 mg 1X ONCE IVP Last administered on 10/20/16 14:16 ; Start 10/20/16 at 14:00; Stop 10/20/16 at 14:01; Status DC Vancomycin HCl (Vanco Per Pharmacy) 1 each PRN DAILY PRN MC SEE COMMENTS Last administered on 10/20/16 16:49; Start 10/20/16 at 14:45; Stop 10/21/16 at 07:42; Status DC Piperacillin Sod/ Tazobactam Sod 1 each 1 each PRN DAILY PRN MC SEE COMMENTS; Start 10/20/16 at 14:45; Stop 10/21/16 at 07:49; Status DC Vancomycin HCl 2 gm/Sodium Chloride 500 ml @ 250 mls/hr 1X ONCE IV Last administered on 10/20/16 15:45; Start 10/20/16 at 15:00; Stop 10/20/16 at 16:59; Status DC Piperacillin Sod/ Tazobactam Sod/ Sodium Chloride (Zosyn/Iv Sodium Chloride 0.9 % 50ml) 50 ml @ 100 mls/hr 1X ONCE IV Last administered on 10/20/16 15:04; Start 10/20/16 at 15:00; Stop 10/20/16 at 15:29; Status DC Ondansetron HCl (Zofran) 4 mg PRN Q8HRS PRN IV NAUSEA/VOMITING; Start 10/20/16 at 15:00; Stop 10/20/16 at 15:16; Status DC Fentanyl Citrate 50 mcg 50 mcg PRN Q2HR PRN IV PAIN; Start 10/20/16 at 15:00; Stop 10/21/16 at 14:59 Sodium Chloride (Iv Sodium Chloride 0.9% 1000ml Bag) 1,000 ml @ 100 mls/hr Q10H IV Last administered on 10/21/16 09:21; Start 10/20/16 at 15:30; Stop at 15:29 Acetaminophen (Tylenol) 650 mg PRN Q4HRS PRN PO FEVER; Start 10/20/16 at 15:00; Stop 10/21/16 at 14:59 Ondansetron HCl (Zofran) 4 mg PRN Q6HRS PRN IV NAUSEA/VOMITING; Start 10/20/16 at 15:12 Insulin Aspart (Novolog) 0-9 UNITS TIDWMEALS SQ Last administered on 10/20/16 18:23; Start 10/20/16 at 17:00 Dextrose 12.5 gm PRN Q15MIN PRN IV SEE COMMENTS Last administered on 10/21/16 08:29; Start 10/20/16 at 15:15 Docusate Sodium (Colace) 100 mg BID PO Last administered on 10/21/16 09:20; Start 10/20/16 at 21:00 Glimepiride (Amaryl) 2 mg BID PO ; Start 10/20/16 at 21:00; Status UNV Acetaminophen/ Hydrocodone Bitart (Lortab 7.5/325) 1 tab PRN Q3HRS PRN PO PAIN ; Start 10/20/16 at 15:15 Glimepiride (Amaryl) 4 mg BIDWMEALS PO Last administered on 10/20/16 17:32; Start 10/20/16 at 17:00 Insulin Detemir (Levemir) 30 units QHS SQ Last administered on 10/20/16 21:03; Start 10/20/16 at 21:00 Ondansetron HCl 4 mg 4 mg Q8HRS PO Last administered on 10/21/16 06:17; Start 10/20/16 at 22:00 Sodium Chloride 500 ml @ 500 mls/hr 1X ONCE IV ; Start 10/20/16 at 15:30; Stop 10/20/16 at 16:29; Status DC Piperacillin Sod/ Tazobactam Sod 2.25 gm/Sodium Chloride 50 ml @ 100 mls/hr Q6HRS IV Last administered on 10/21/16 06:19; Start 10/21/16 at 00:00 Vancomycin HCl/ Sodium Chloride (Iv Sodium Chloride 0.9% 250ml) 250 ml @ 167 mls/hr Q24H IV ; Start 10/21/16 at 16:00; Stop 10/21/16 at 16:00; Status DC Vancomycin HCl 1 each 1 each 1X ONCE MC ; Start 10/22/16 at 15:30; Stop 10/22/16 at 15:31; Status Cancel Dopamine HCl/ Dextrose 250 ml @ 13.183 mls/ hr CONT PRN IV SEE I/O RECORD Last administered on 10/20/16 20:38; Start 10/20/16 at 19:30 Digoxin (Lanoxin) 250 mcg 1X ONCE IV Last administered on 10/20/16 21:02; Start 10/20/16 at 20:45; Stop 10/20/16 at 20:46; Status DC Digoxin (Lanoxin) 250 mcg 1X ONCE IV Last administered on 10/21/16 01:48; Start 10/21/16 at 02:00; Stop 10/21/16 at 02:01; Status DC Digoxin 250 mcg 250 mcg 1X ONCE IV Last administered on 10/21/16 04:12; Start 10/21/16 at 04:15; Stop 10/21/16 at 04:16; Status DC Diltiazem HCl 125 mg/Dextrose 125 ml @ 0 mls/hr CONT PRN IV SEE I/O RECORD Last administered on 10/21/16 05:12; Start 10/21/16 at 04:15 Linezolid (Zyvox Premix) 300 ml @ 300 mls/hr Q12HR IV Last administered on 10/21 09:20; Start 10/21/16 at 09:00 Active Scripts Active Reported Zofran Odt (Ondansetron) 8 Mg Tab.rapdis 1 Tab PO Q8HRS Colace (Docusate Sodium) 100 Mg Capsule 1 Cap PO BID Hydrocodone-Apap 7.5-325 (Hydrocodone Bit/Acetaminophen) 1 Each Tablet 1 Tab PO Q3HRS PRN Glimepiride 4 Mg Tablet 1 Tab PO BID Glimepiride 2 Mg Tablet 1 Tab PO BID Levemir (Insulin Detemir) 100 Unit/1 Ml Vial 30 Unit SQ HS Allergies Allergies: Coded Allergies: Tetanus Vaccines and Toxoid (Verified Allergy, Intermediate, 10/20/16) ROS Review of System GEN: no Fevers no Chills EYES: no new Visual Complaints ENT: no EN Drainage no Hearing deficiets CVS: no Orthopnea no CP RESP: no SOB no LOZANO GI: min Nausea no Vomiting + Diarrhea : no Dysuria no Urgency HEME: no easy bruising no Palp Ly Nodes NEURO no Focal Weakness no Sz PSYCH: no Suicidal Ideation min Depression SKIN: no Rashes + Foot wounds on left ENDO: no Polyuria or Polydipsia no Hot/Cold Intolerance MU SK: occ Arthraigia no Myalgia Physical Exam Physical Exam General Appearance: Awake Alert Oriented x 3 In no Distress Eyes: VIsion Unchanged Conjunctiva Normal EN: No EN Drainage Mucous Memb. moist; Neck: no JVD no JVP Supple no Thyromegaly CVS: S1 S2 no Murmur No Gallop No Rub +1 Edema on the left Resp: no Rales no Rhonchi no Acc. Muscle use GI: BS +ve NO Bruit Non Tender Non Distended : no CVA tenderness; no Suprapubic Tenderness SKIN: no Rashes Breast Exam deferred; wound on left foot noted Mu.Sk: Adequate ROM min Muscle Atrophy Heme: Unable to palpate Obvious LAD no palp Splenomegaly NEURO: Good Strength and Tone Cranial Nerves II - XII grossly intact Psych: min Depressed no Active hallucination Vital Signs Vital Signs Date Time Temp Pulse Resp B/P Pulse Ox O2 Delivery O2 Flow Rate FiO2 10/21/16 08:00 98.1 124 20 119/48 95 Room Air 98.1 10/20/16 20:02 96.0 Assessment & Plan ARF: suspect VMN. Cannot r/o ATN though. ? Rhabdo also with ^ed CK. Hypovolemia may be playing a role too. IVF as ordered. Current FLuid and E-lyte status does not necessitate emergent need for Dialysis. Will re-evaluate for Dialysis in am Underlying CKD III cannot be rule out. ? hypoVolemia - IVF as ordered; will need CVP monitoring Lactic ACidemia - suspect due to Hypovolemic shock - improving with Better Rhythm control and IVF HypoTN: after Cardizem was started. Current meds reviewed. 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 R/o Proteinruia (which was noted in May 2016) Discussed Plan of Care and prognosis etc. at length with pt Labs Labs Laboratory Tests Test 10/20/16 13:17 10/20/16 13:25 10/20/16 14:50 10/20/16 17:10 Glucose (Fingerstick) 351mg/dL (70-99) White Blood Count 4.3x10^3/uL (4.0-11.0) Red Blood Count 4.98x10^6/uL (4.30-5.70) Hemoglobin 14.3g/dL (13.0-17.5) Hematocrit 42.9% (39.0-53.0) Mean Corpuscular Volume 86fL (79-100) Mean Corpuscular Hemoglobin 29pg (25-35) Mean Corpuscular Hemoglobin Concent 33g/dL (31-37) Red Cell Distribution Width 14.1% (11.5-14.5) Platelet Count 114x10^3/uL (140-400) Neutrophils (%) (Auto) 96% (31-73) Lymphocytes (%) (Auto) 2% (24-48) Monocytes (%) (Auto) 1% (0-9) Eosinophils (%) (Auto) 0% (0-3) Basophils (%) (Auto) 1% (0-3) Neutrophils # (Auto) 4.1x10^3uL (1.8-7.7) Lymphocytes # (Auto) 0.1x10^3/uL (1.0-4.8) Monocytes # (Auto) 0.0x10^3/uL (0.0-1.1) Eosinophils # (Auto) 0.0x10^3/uL (0.0-0.7) Basophils # (Auto) 0.0x10^3/uL (0.0-0.2) Segmented Neutrophils % 47% (35-66) Band Neutrophils % 47% (0-9) Lymphocytes % 3% (24-48) Basophils % 1% (0-3) Metamyelocytes % 2% (0-0) Toxic Granulation Slight Toxic Vacuolation Mod Platelet Estimate Decreased (ADEQUATE) Giant Platelets Occ Erythrocyte Sedimentation Rate 99 (0-15) Prothrombin Time 18.1SEC (11.7-14.0) Prothromb Time International Ratio 1.6 (0.8-1.1) Sodium Level 135mmol/L (136-145) Potassium Level 4.4mmol/L (3.5-5.1) Chloride Level 96mmol/L (98-107) Carbon Dioxide Level 24mmol/L (21-32) Anion Gap 15 (6-14) Blood Urea Nitrogen 40mg/dL (8-26) Creatinine 3.0mg/dL (0.7-1.3) Estimated GFR (Cockcroft-Gault) 20.7 Glucose Level 331mg/dL (70-99) Hemoglobin A1c 9.3% (4.8-5.6) Lactic Acid Level 5.9mmol/L (0.4-2.0) 3.7mmol/L (0.4-2.0) 2.5mmol/L (0.4-2.0) Calcium Level 8.9mg/dL (8.5-10.1) Magnesium Level 1.9mg/dL (1.8-2.4) Total Bilirubin 1.8mg/dL (0.2-1.0) Direct Bilirubin 0.8mg/dL (0.0-0.2) Aspartate Amino Transf (AST/SGOT) 23U/L (15-37) Alanine Aminotransferase (ALT/SGPT) 10U/L (16-63) Alkaline Phosphatase 106U/L (46-116) Creatine Kinase 427U/L (39-308) Creatine Kinase MB (Mass) 3.8ng/mL (0.0-3.6) Creatine Kinase MB Relative Index 0.9% (0-4) Troponin I Quantitative 0.026ng/mL (0.000-0.055) FR-Mzc-I-Type Natriuretic Peptide 60154fw/mL (0-124) Total Protein 7.1g/dL (6.4-8.2) Albumin 1.9g/dL (3.4-5.0) Thyroid Stimulating Hormone (TSH) 3.708uIU/mL (0.358-3.74) Test 10/20/16 17:31 10/20/16 20:47 10/21/16 03:10 10/21/16 04:06 Glucose (Fingerstick) 327mg/dL (70-99) 285mg/dL (70-99) 62mg/dL (70-99) White Blood Count 8.1x10^3/uL (4.0-11.0) Red Blood Count 4.56x10^6/uL (4.30-5.70) Hemoglobin 12.9g/dL (13.0-17.5) Hematocrit 38.5% (39.0-53.0) Mean Corpuscular Volume 85fL (79-100) Mean Corpuscular Hemoglobin 28pg (25-35) Mean Corpuscular Hemoglobin Concent 34g/dL (31-37) Red Cell Distribution Width 14.3% (11.5-14.5) Platelet Count 90x10^3/uL (140-400) Neutrophils (%) (Auto) 91% (31-73) Lymphocytes (%) (Auto) 4% (24-48) Monocytes (%) (Auto) 5% (0-9) Eosinophils (%) (Auto) 0% (0-3) Basophils (%) (Auto) 0% (0-3) Neutrophils # (Auto) 7.4x10^3uL (1.8-7.7) Lymphocytes # (Auto) 0.3x10^3/uL (1.0-4.8) Monocytes # (Auto) 0.4x10^3/uL (0.0-1.1) Eosinophils # (Auto) 0.0x10^3/uL (0.0-0.7) Basophils # (Auto) 0.0x10^3/uL (0.0-0.2) Sodium Level 133mmol/L (136-145) Potassium Level 4.2mmol/L (3.5-5.1) Chloride Level 99mmol/L (98-107) Carbon Dioxide Level 23mmol/L (21-32) Anion Gap 11 (6-14) Blood Urea Nitrogen 50mg/dL (8-26) Creatinine 3.1mg/dL (0.7-1.3) Estimated GFR (Cockcroft-Gault) 20.0 Glucose Level 72mg/dL (70-99) Calcium Level 8.2mg/dL (8.5-10.1) Laboratory Tests Test 10/20/16 13:17 10/20/16 13:25 10/20/16 14:50 10/20/16 17:10 Glucose (Fingerstick) 351mg/dL (70-99) White Blood Count 4.3x10^3/uL (4.0-11.0) Red Blood Count 4.98x10^6/uL (4.30-5.70) Hemoglobin 14.3g/dL (13.0-17.5) Hematocrit 42.9% (39.0-53.0) Mean Corpuscular Volume 86fL (79-100) Mean Corpuscular Hemoglobin 29pg (25-35) Mean Corpuscular Hemoglobin Concent 33g/dL (31-37) Red Cell Distribution Width 14.1% (11.5-14.5) Platelet Count 114x10^3/uL (140-400) Neutrophils (%) (Auto) 96% (31-73) Lymphocytes (%) (Auto) 2% (24-48) Monocytes (%) (Auto) 1% (0-9) Eosinophils (%) (Auto) 0% (0-3) Basophils (%) (Auto) 1% (0-3) Neutrophils # (Auto) 4.1x10^3uL (1.8-7.7) Lymphocytes # (Auto) 0.1x10^3/uL (1.0-4.8) Monocytes # (Auto) 0.0x10^3/uL (0.0-1.1) Eosinophils # (Auto) 0.0x10^3/uL (0.0-0.7) Basophils # (Auto) 0.0x10^3/uL (0.0-0.2) Segmented Neutrophils % 47% (35-66) Band Neutrophils % 47% (0-9) Lymphocytes % 3% (24-48) Basophils % 1% (0-3) Metamyelocytes % 2% (0-0) Toxic Granulation Slight Toxic Vacuolation Mod Platelet Estimate Decreased (ADEQUATE) Giant Platelets Occ Erythrocyte Sedimentation Rate 99 (0-15) Prothrombin Time 18.1SEC (11.7-14.0) Prothromb Time International Ratio 1.6 (0.8-1.1) Sodium Level 135mmol/L (136-145) Potassium Level 4.4mmol/L (3.5-5.1) Chloride Level 96mmol/L (98-107) Carbon Dioxide Level 24mmol/L (21-32) Anion Gap 15 (6-14) Blood Urea Nitrogen 40mg/dL (8-26) Creatinine 3.0mg/dL (0.7-1.3) Estimated GFR (Cockcroft-Gault) 20.7 Glucose Level 331mg/dL (70-99) Hemoglobin A1c 9.3% (4.8-5.6) Lactic Acid Level 5.9mmol/L (0.4-2.0) 3.7mmol/L (0.4-2.0) 2.5mmol/L (0.4-2.0) Calcium Level 8.9mg/dL (8.5-10.1) Magnesium Level 1.9mg/dL (1.8-2.4) Total Bilirubin 1.8mg/dL (0.2-1.0) Direct Bilirubin 0.8mg/dL (0.0-0.2) Aspartate Amino Transf (AST/SGOT) 23U/L (15-37) Alanine Aminotransferase (ALT/SGPT) 10U/L (16-63) Alkaline Phosphatase 106U/L (46-116) Creatine Kinase 427U/L (39-308) Creatine Kinase MB (Mass) 3.8ng/mL (0.0-3.6) Creatine Kinase MB Relative Index 0.9% (0-4) Troponin I Quantitative 0.026ng/mL (0.000-0.055) LA-Rfp-U-Type Natriuretic Peptide 58524kx/mL (0-124) Total Protein 7.1g/dL (6.4-8.2) Albumin 1.9g/dL (3.4-5.0) Thyroid Stimulating Hormone (TSH) 3.708uIU/mL (0.358-3.74) Test 10/20/16 17:31 10/20/16 20:47 10/21/16 03:10 10/21/16 04:06 Glucose (Fingerstick) 327mg/dL (70-99) 285mg/dL (70-99) 62mg/dL (70-99) White Blood Count 8.1x10^3/uL (4.0-11.0) Red Blood Count 4.56x10^6/uL (4.30-5.70) Hemoglobin 12.9g/dL (13.0-17.5) Hematocrit 38.5% (39.0-53.0) Mean Corpuscular Volume 85fL (79-100) Mean Corpuscular Hemoglobin 28pg (25-35) Mean Corpuscular Hemoglobin Concent 34g/dL (31-37) Red Cell Distribution Width 14.3% (11.5-14.5) Platelet Count 90x10^3/uL (140-400) Neutrophils (%) (Auto) 91% (31-73) Lymphocytes (%) (Auto) 4% (24-48) Monocytes (%) (Auto) 5% (0-9) Eosinophils (%) (Auto) 0% (0-3) Basophils (%) (Auto) 0% (0-3) Neutrophils # (Auto) 7.4x10^3uL (1.8-7.7) Lymphocytes # (Auto) 0.3x10^3/uL (1.0-4.8) Monocytes # (Auto) 0.4x10^3/uL (0.0-1.1) Eosinophils # (Auto) 0.0x10^3/uL (0.0-0.7) Basophils # (Auto) 0.0x10^3/uL (0.0-0.2) Sodium Level 133mmol/L (136-145) Potassium Level 4.2mmol/L (3.5-5.1) Chloride Level 99mmol/L (98-107) Carbon Dioxide Level 23mmol/L (21-32) Anion Gap 11 (6-14) Blood Urea Nitrogen 50mg/dL (8-26) Creatinine 3.1mg/dL (0.7-1.3) Estimated GFR (Cockcroft-Gault) 20.0 Glucose Level 72mg/dL (70-99) Calcium Level 8.2mg/dL (8.5-10.1) Images Images COMPARISON: 06/03/2016. FINDINGS: A frontal view of the chest is obtained. There is a mild airspace opacity in the right infrahilar distribution. There is no pneumothorax or pleural effusion. The heart is not enlarged. IMPRESSION: 1. Mild right infrahilar airspace opacity. Correlate for mild right middle lobe or right lower lobe pneumonia. ANJELICA DE LEON MD Oct 21, 2016 09:50
--- NOTE | 2016-10-21 09:52 | EKG ---
[facility] [address] [place] [address] Test Date: 2016-10-21 Test Time: 09:51:42 Pat Name: ADAMA WIGGINS Department: Room: [facility] Gender: M Uke Operator: MIHIR : 1945 Requested By: ROSAS SCHNEIDER Order Number: [id number] Reading MD: Measurements Intervals [place] Rate: 99 P: HI: QRS: -39 QRSD: 74 T: 50 QT: 340 QTc: 442 Interpretive Statements IRREGULAR RHYTHM, NO P-WAVE FOUND ABNORMAL LEFT AXIS DEVIATION LEFT ANTERIOR FASCICULAR BLOCK ABNORMAL ECG RI6.01 Compared to ECG 06/03/2016 08:36:34 Sinus rhythm no longer present
[2016-10-21 09:58] LABS: CHOLESTEROL/HDL RATIO 8.7
[2016-10-21] MEDS ORDERED: PROCHLORPERAZINE 10 MG/2 ML VIAL. IV PRN ×2 (10:00→11:30)
[2016-10-21] MEDS ORDERED: HYDROMORPHONE 2 MG/ML VIAL. IV PRN ×2 (10:00→11:30)
[2016-10-21] MEDS ORDERED: ONDANSETRON PF 4 MG/2 ML VIAL. IV PRN ×2 (10:00→11:30)
[2016-10-21] MEDS ORDERED: MORPHINE SULFATE 2 MG/ML DISP.SYRIN. IV PRN ×2 (10:00→11:30)
[2016-10-21] MEDS ORDERED: LIDOCAINE 1% 1 ML SYRINGE. ID PRN ×2 (10:00→11:30)
[2016-10-21] MEDS ORDERED: FENTANYL PF 100 MCG/2 ML VIAL. IV PRN ×2 (10:00)
[2016-10-21] MEDS ORDERED: IV NORMAL SALINE 500ML BAG 500 ML IV PRN (10:15)
[2016-10-21 10:28] LABS: INR 1.4 (0.8-1.1); PROTHROMBIN TIME PATIENT 16.6 SEC (11.7-14.0)
[2016-10-21] MEDS: ASPIRIN ENTERIC COATED 81 MG TABLET.DR. PO SCH (12:00)
--- NOTE | 2016-10-21 12:08 | RAD ---
EXAM: Renal/retroperitonal ultrasound HISTORY: Acute renal failure. COMPARISON: None. FINDINGS: Ultrasound of the kidneys, bladder and retroperitoneum was performed. The right kidney measures 12.8 cm. Cortical echogenicity is mildly increased with respect to the liver parenchyma. Cortical thickness is preserved. There is no hydronephrosis. The left kidney measures 12.7 cm. Cortical thickness and echogenicity are preserved. There is no hydronephrosis. Images of the bladder reveal no gross abnormality. IMPRESSION: 1. Mildly increased renal cortical echogenicity on the right. Correlate for intrinsic renal disease. 2. Normal size kidneys. No hydronephrosis.
--- NOTE | 2016-10-21 12:10 | CARD ---
APPROVED REPORT EXAM: Two-dimensional and M-mode echocardiogram with Doppler and color Doppler. Other Information Quality : LimitedHR: 100bpm Rhythm : Atrial Fibrillation INDICATION Atrial Fibrillation Sepsis 2D DIMENSIONS RVDd1.7 (2.9-3.5cm)Left Atrium(2D)3.5 (1.6-4.0cm) IVSd1.0 (0.7-1.1cm)Aortic Root(2D)3.0 (2.0-3.7cm) LVDd4.2 (3.9-5.9cm)LVOT Diameter2.3 (1.8-2.4cm) PWd1.0 (0.7-1.1cm)LVDs2.9 (2.5-4.0cm) FS (%) 32.6 %SV49.4 ml LVEF(%)61.3 (>50%) Aortic Valve AoV Peak Sea.132.2cm/sAoV VTI23.8cm AO Peak GR.7.0mmHgLVOT VTI 17.43cm AO Mean GR.4mmHg Mitral Valve MV E Gwhbpawg607.3cm/sMV E Peak Gr.5mmHg MV DECEL [id number] A Wwarlkyl21.7cm/s MV E Mean Gr.2mmHgE/A Ratio1.8 MV A [id number] Tricuspid Valve TR P. [id number]/sRAP [id number] TR Peak Gr.21mmHg LEFT VENTRICLE The left ventricle is normal size. There is normal left ventricular wall thickness. The left ventricu lar systolic function is normal and the ejection fraction is within normal range. The Ejection Fracti on 55-60%. There is normal LV segmental wall motion. Unable to assess left ventricular diastolic func tion due to atrial fibrillation. No left ventricle thrombus noted on this study. RIGHT VENTRICLE The right ventricle is normal size. There is normal right ventricular wall thickness. The right ventr icular systolic function is normal. ATRIA The left atrium size is normal. The right atrium size is normal. The interatrial septum is intact wit h no evidence for an atrial septal defect or patent foramen ovale as noted on 2-D or Doppler imaging. AORTIC VALVE The aortic valve is mildly sclerotic. The aortic valve is trileaflet. Doppler and Color Flow revealed no significant aortic regurgitation. There is no significant aortic valvular stenosis. MITRAL VALVE The mitral valve leaflets are thickened. There is no evidence of mitral valve prolapse. There is no m itral valve stenosis. Doppler and Color Flow revealed trace mitral regurgitation. TRICUSPID VALVE The tricuspid valve is normal in structure and function. Doppler and Color Flow revealed trace tricus pid regurgitation. The pulmonary artery systolic pressure is estimated at 27 mmHg. PULMONIC VALVE The pulmonary valve is normal in structure and function. Doppler and Color Flow revealed no pulmonic valvular regurgitation. There is no pulmonic valvular stenosis. GREAT VESSELS The aortic root is normal in size. The ascending aorta was not well visualized but appears normal in size proximally. The pulmonary artery is normal. The IVC is normal in size and collapses >50% with in spiration. PERICARDIAL EFFUSION There is no evidence of significant pericardial effusion. Critical Notification Critical Value: No <Conclusion> The left ventricle is normal size. The left ventricular systolic function is normal and the ejection fraction is within normal range. The Ejection Fraction 55-60%. There is no significant aortic valvular stenosis. Doppler and Color Flow revealed no significant aortic regurgitation. Doppler and Color Flow revealed trace mitral regurgitation. Doppler and Color Flow revealed trace tricuspid regurgitation. The pulmonary artery systolic pressure is estimated at 27 mmHg.
--- NOTE | 2016-10-21 12:45 | PDOC ---
ORTHO PROGRESS NOTES Subjective Doing ok, no acute events Vitals Vital Signs Date Time Temp Pulse Resp B/P Pulse Ox O2 Delivery O2 Flow Rate FiO2 10/21/16 10:00 98 22 95/46 96 Room Air 10/21/16 08:00 98.1 98.1 10/20/16 20:02 96.0 Labs Laboratory Tests Test 10/20/16 13:17 10/20/16 13:25 10/20/16 14:50 10/20/16 17:10 Glucose (Fingerstick) 351mg/dL (70-99) White Blood Count 4.3x10^3/uL (4.0-11.0) Red Blood Count 4.98x10^6/uL (4.30-5.70) Hemoglobin 14.3g/dL (13.0-17.5) Hematocrit 42.9% (39.0-53.0) Mean Corpuscular Volume 86fL (79-100) Mean Corpuscular Hemoglobin 29pg (25-35) Mean Corpuscular Hemoglobin Concent 33g/dL (31-37) Red Cell Distribution Width 14.1% (11.5-14.5) Platelet Count 114x10^3/uL (140-400) Neutrophils (%) (Auto) 96% (31-73) Lymphocytes (%) (Auto) 2% (24-48) Monocytes (%) (Auto) 1% (0-9) Eosinophils (%) (Auto) 0% (0-3) Basophils (%) (Auto) 1% (0-3) Neutrophils # (Auto) 4.1x10^3uL (1.8-7.7) Lymphocytes # (Auto) 0.1x10^3/uL (1.0-4.8) Monocytes # (Auto) 0.0x10^3/uL (0.0-1.1) Eosinophils # (Auto) 0.0x10^3/uL (0.0-0.7) Basophils # (Auto) 0.0x10^3/uL (0.0-0.2) Segmented Neutrophils % 47% (35-66) Band Neutrophils % 47% (0-9) Lymphocytes % 3% (24-48) Basophils % 1% (0-3) Metamyelocytes % 2% (0-0) Toxic Granulation Slight Toxic Vacuolation Mod Platelet Estimate Decreased (ADEQUATE) Giant Platelets Occ Erythrocyte Sedimentation Rate 99 (0-15) Prothrombin Time 18.1SEC (11.7-14.0) Prothromb Time International Ratio 1.6 (0.8-1.1) Sodium Level 135mmol/L (136-145) Potassium Level 4.4mmol/L (3.5-5.1) Chloride Level 96mmol/L (98-107) Carbon Dioxide Level 24mmol/L (21-32) Anion Gap 15 (6-14) Blood Urea Nitrogen 40mg/dL (8-26) Creatinine 3.0mg/dL (0.7-1.3) Estimated GFR (Cockcroft-Gault) 20.7 Glucose Level 331mg/dL (70-99) Hemoglobin A1c 9.3% (4.8-5.6) Lactic Acid Level 5.9mmol/L (0.4-2.0) 3.7mmol/L (0.4-2.0) 2.5mmol/L (0.4-2.0) Calcium Level 8.9mg/dL (8.5-10.1) Magnesium Level 1.9mg/dL (1.8-2.4) Total Bilirubin 1.8mg/dL (0.2-1.0) Direct Bilirubin 0.8mg/dL (0.0-0.2) Aspartate Amino Transf (AST/SGOT) 23U/L (15-37) Alanine Aminotransferase (ALT/SGPT) 10U/L (16-63) Alkaline Phosphatase 106U/L (46-116) Creatine Kinase 427U/L (39-308) Creatine Kinase MB (Mass) 3.8ng/mL (0.0-3.6) Creatine Kinase MB Relative Index 0.9% (0-4) Troponin I Quantitative 0.026ng/mL (0.000-0.055) ZE-Bxe-L-Type Natriuretic Peptide 34057jc/mL (0-124) Total Protein 7.1g/dL (6.4-8.2) Albumin 1.9g/dL (3.4-5.0) Thyroid Stimulating Hormone (TSH) 3.708uIU/mL (0.358-3.74) Test 10/20/16 17:31 10/20/16 20:47 10/21/16 03:10 10/21/16 04:06 Glucose (Fingerstick) 327mg/dL (70-99) 285mg/dL (70-99) 62mg/dL (70-99) White Blood Count 8.1x10^3/uL (4.0-11.0) Red Blood Count 4.56x10^6/uL (4.30-5.70) Hemoglobin 12.9g/dL (13.0-17.5) Hematocrit 38.5% (39.0-53.0) Mean Corpuscular Volume 85fL (79-100) Mean Corpuscular Hemoglobin 28pg (25-35) Mean Corpuscular Hemoglobin Concent 34g/dL (31-37) Red Cell Distribution Width 14.3% (11.5-14.5) Platelet Count 90x10^3/uL (140-400) Neutrophils (%) (Auto) 91% (31-73) Lymphocytes (%) (Auto) 4% (24-48) Monocytes (%) (Auto) 5% (0-9) Eosinophils (%) (Auto) 0% (0-3) Basophils (%) (Auto) 0% (0-3) Neutrophils # (Auto) 7.4x10^3uL (1.8-7.7) Lymphocytes # (Auto) 0.3x10^3/uL (1.0-4.8) Monocytes # (Auto) 0.4x10^3/uL (0.0-1.1) Eosinophils # (Auto) 0.0x10^3/uL (0.0-0.7) Basophils # (Auto) 0.0x10^3/uL (0.0-0.2) Sodium Level 133mmol/L (136-145) Potassium Level 4.2mmol/L (3.5-5.1) Chloride Level 99mmol/L (98-107) Carbon Dioxide Level 23mmol/L (21-32) Anion Gap 11 (6-14) Blood Urea Nitrogen 50mg/dL (8-26) Creatinine 3.1mg/dL (0.7-1.3) Estimated GFR (Cockcroft-Gault) 20.0 Glucose Level 72mg/dL (70-99) Calcium Level 8.2mg/dL (8.5-10.1) Triglycerides Level 114mg/dL (0-150) Cholesterol Level 139mg/dL (0-200) LDL Cholesterol, Calculated 100mg/dL (0-100) VLDL Cholesterol, Calculated 23mg/dL (0-40) HDL Cholesterol 16mg/dL (40-60) Cholesterol/HDL Ratio 8.7 Thyroid Stimulating Hormone (TSH) 1.712uIU/mL (0.358-3.74) Test 10/21/16 08:28 10/21/16 09:22 10/21/16 09:40 10/21/16 10:00 Glucose (Fingerstick) 42mg/dL (70-99) 85mg/dL (70-99) Prothrombin Time 16.6SEC (11.7-14.0) Prothromb Time International Ratio 1.4 (0.8-1.1) Lactic Acid Level 1.9mmol/L (0.4-2.0) Creatine Kinase 391U/L (39-308) Test 10/21/16 12:37 Glucose (Fingerstick) 89mg/dL (70-99) Laboratory Tests Test 10/20/16 13:17 10/20/16 13:25 10/20/16 14:50 10/20/16 17:10 Glucose (Fingerstick) 351mg/dL (70-99) White Blood Count 4.3x10^3/uL (4.0-11.0) Red Blood Count 4.98x10^6/uL (4.30-5.70) Hemoglobin 14.3g/dL (13.0-17.5) Hematocrit 42.9% (39.0-53.0) Mean Corpuscular Volume 86fL (79-100) Mean Corpuscular Hemoglobin 29pg (25-35) Mean Corpuscular Hemoglobin Concent 33g/dL (31-37) Red Cell Distribution Width 14.1% (11.5-14.5) Platelet Count 114x10^3/uL (140-400) Neutrophils (%) (Auto) 96% (31-73) Lymphocytes (%) (Auto) 2% (24-48) Monocytes (%) (Auto) 1% (0-9) Eosinophils (%) (Auto) 0% (0-3) Basophils (%) (Auto) 1% (0-3) Neutrophils # (Auto) 4.1x10^3uL (1.8-7.7) Lymphocytes # (Auto) 0.1x10^3/uL (1.0-4.8) Monocytes # (Auto) 0.0x10^3/uL (0.0-1.1) Eosinophils # (Auto) 0.0x10^3/uL (0.0-0.7) Basophils # (Auto) 0.0x10^3/uL (0.0-0.2) Segmented Neutrophils % 47% (35-66) Band Neutrophils % 47% (0-9) Lymphocytes % 3% (24-48) Basophils % 1% (0-3) Metamyelocytes % 2% (0-0) Toxic Granulation Slight Toxic Vacuolation Mod Platelet Estimate Decreased (ADEQUATE) Giant Platelets Occ Erythrocyte Sedimentation Rate 99 (0-15) Prothrombin Time 18.1SEC (11.7-14.0) Prothromb Time International Ratio 1.6 (0.8-1.1) Sodium Level 135mmol/L (136-145) Potassium Level 4.4mmol/L (3.5-5.1) Chloride Level 96mmol/L (98-107) Carbon Dioxide Level 24mmol/L (21-32) Anion Gap 15 (6-14) Blood Urea Nitrogen 40mg/dL (8-26) Creatinine 3.0mg/dL (0.7-1.3) Estimated GFR (Cockcroft-Gault) 20.7 Glucose Level 331mg/dL (70-99) Hemoglobin A1c 9.3% (4.8-5.6) Lactic Acid Level 5.9mmol/L (0.4-2.0) 3.7mmol/L (0.4-2.0) 2.5mmol/L (0.4-2.0) Calcium Level 8.9mg/dL (8.5-10.1) Magnesium Level 1.9mg/dL (1.8-2.4) Total Bilirubin 1.8mg/dL (0.2-1.0) Direct Bilirubin 0.8mg/dL (0.0-0.2) Aspartate Amino Transf (AST/SGOT) 23U/L (15-37) Alanine Aminotransferase (ALT/SGPT) 10U/L (16-63) Alkaline Phosphatase 106U/L (46-116) Creatine Kinase 427U/L (39-308) Creatine Kinase MB (Mass) 3.8ng/mL (0.0-3.6) Creatine Kinase MB Relative Index 0.9% (0-4) Troponin I Quantitative 0.026ng/mL (0.000-0.055) FG-Ril-G-Type Natriuretic Peptide 98444hx/mL (0-124) Total Protein 7.1g/dL (6.4-8.2) Albumin 1.9g/dL (3.4-5.0) Thyroid Stimulating Hormone (TSH) 3.708uIU/mL (0.358-3.74) Test 10/20/16 17:31 10/20/16 20:47 10/21/16 03:10 10/21/16 04:06 Glucose (Fingerstick) 327mg/dL (70-99) 285mg/dL (70-99) 62mg/dL (70-99) White Blood Count 8.1x10^3/uL (4.0-11.0) Red Blood Count 4.56x10^6/uL (4.30-5.70) Hemoglobin 12.9g/dL (13.0-17.5) Hematocrit 38.5% (39.0-53.0) Mean Corpuscular Volume 85fL (79-100) Mean Corpuscular Hemoglobin 28pg (25-35) Mean Corpuscular Hemoglobin Concent 34g/dL (31-37) Red Cell Distribution Width 14.3% (11.5-14.5) Platelet Count 90x10^3/uL (140-400) Neutrophils (%) (Auto) 91% (31-73) Lymphocytes (%) (Auto) 4% (24-48) Monocytes (%) (Auto) 5% (0-9) Eosinophils (%) (Auto) 0% (0-3) Basophils (%) (Auto) 0% (0-3) Neutrophils # (Auto) 7.4x10^3uL (1.8-7.7) Lymphocytes # (Auto) 0.3x10^3/uL (1.0-4.8) Monocytes # (Auto) 0.4x10^3/uL (0.0-1.1) Eosinophils # (Auto) 0.0x10^3/uL (0.0-0.7) Basophils # (Auto) 0.0x10^3/uL (0.0-0.2) Sodium Level 133mmol/L (136-145) Potassium Level 4.2mmol/L (3.5-5.1) Chloride Level 99mmol/L (98-107) Carbon Dioxide Level 23mmol/L (21-32) Anion Gap 11 (6-14) Blood Urea Nitrogen 50mg/dL (8-26) Creatinine 3.1mg/dL (0.7-1.3) Estimated GFR (Cockcroft-Gault) 20.0 Glucose Level 72mg/dL (70-99) Calcium Level 8.2mg/dL (8.5-10.1) Triglycerides Level 114mg/dL (0-150) Cholesterol Level 139mg/dL (0-200) LDL Cholesterol, Calculated 100mg/dL (0-100) VLDL Cholesterol, Calculated 23mg/dL (0-40) HDL Cholesterol 16mg/dL (40-60) Cholesterol/HDL Ratio 8.7 Thyroid Stimulating Hormone (TSH) 1.712uIU/mL (0.358-3.74) Test 10/21/16 08:28 10/21/16 09:22 10/21/16 09:40 10/21/16 10:00 Glucose (Fingerstick) 42mg/dL (70-99) 85mg/dL (70-99) Prothrombin Time 16.6SEC (11.7-14.0) Prothromb Time International Ratio 1.4 (0.8-1.1) Lactic Acid Level 1.9mmol/L (0.4-2.0) Creatine Kinase 391U/L (39-308) Test 10/21/16 12:37 Glucose (Fingerstick) 89mg/dL (70-99) Notes Resting, easily awakens LLE: healed transmet incision, wound plantar lateral foot larger with necrotic debris and exposed bone now Assessment and Plan I talked with Bree, I will be performing I and D, VAC tomorrow morning NWB LLE NPO at JUWAN SALVADOR II, MD Oct 21, 2016 12:45
--- NOTE | 2016-10-21 14:14 | PDOC ---
PROGRESS NOTES Chief Complaint Chief Complaint 1. Left foot osteomyelitis 2. DM 2 uncontrolled 3. HTN 4 Atrial fib 5. Sepsis infectious 6. RHETT, vasomotor, cont IV fluids 7 Acute diarrhea 8, Mild thrombocytopenia 9 met acidosis 10. Mod.severe malnutrition, POA History of Present Illness History of Present Illness broad IV abx diarrhea, send for c.diff plan I+D tomorrow, ortho following prior I+D same 05/31 Vitals Vitals Vital Signs Date Time Temp Pulse Resp B/P Pulse Ox O2 Delivery O2 Flow Rate FiO2 10/21/16 12:00 Room Air 10/21/16 10:00 98 22 95/46 96 10/21/16 08:00 98.1 98.1 10/20/16 20:02 96.0 Physical Exam General: Alert, Oriented X3, Cooperative, No acute distress Heart: Normal S1, Normal S2, Other (2/6 systolic murmur to LLS border; AFIB) Lungs: Clear, Wheezing Abdomen: Soft, No tenderness Extremities: No clubbing, No cyanosis Skin: Other (left foot wound) Labs LABS Laboratory Tests Test 10/20/16 14:50 10/20/16 17:10 10/20/16 17:31 10/20/16 20:47 Lactic Acid Level 3.7mmol/L (0.4-2.0) 2.5mmol/L (0.4-2.0) Glucose (Fingerstick) 327mg/dL (70-99) 285mg/dL (70-99) Test 10/21/16 03:10 10/21/16 04:06 10/21/16 08:28 10/21/16 09:22 White Blood Count 8.1x10^3/uL (4.0-11.0) Red Blood Count 4.56x10^6/uL (4.30-5.70) Hemoglobin 12.9g/dL (13.0-17.5) Hematocrit 38.5% (39.0-53.0) Mean Corpuscular Volume 85fL (79-100) Mean Corpuscular Hemoglobin 28pg (25-35) Mean Corpuscular Hemoglobin Concent 34g/dL (31-37) Red Cell Distribution Width 14.3% (11.5-14.5) Platelet Count 90x10^3/uL (140-400) Neutrophils (%) (Auto) 91% (31-73) Lymphocytes (%) (Auto) 4% (24-48) Monocytes (%) (Auto) 5% (0-9) Eosinophils (%) (Auto) 0% (0-3) Basophils (%) (Auto) 0% (0-3) Neutrophils # (Auto) 7.4x10^3uL (1.8-7.7) Lymphocytes # (Auto) 0.3x10^3/uL (1.0-4.8) Monocytes # (Auto) 0.4x10^3/uL (0.0-1.1) Eosinophils # (Auto) 0.0x10^3/uL (0.0-0.7) Basophils # (Auto) 0.0x10^3/uL (0.0-0.2) Sodium Level 133mmol/L (136-145) Potassium Level 4.2mmol/L (3.5-5.1) Chloride Level 99mmol/L (98-107) Carbon Dioxide Level 23mmol/L (21-32) Anion Gap 11 (6-14) Blood Urea Nitrogen 50mg/dL (8-26) Creatinine 3.1mg/dL (0.7-1.3) Estimated GFR (Cockcroft-Gault) 20.0 Glucose Level 72mg/dL (70-99) Calcium Level 8.2mg/dL (8.5-10.1) Triglycerides Level 114mg/dL (0-150) Cholesterol Level 139mg/dL (0-200) LDL Cholesterol, Calculated 100mg/dL (0-100) VLDL Cholesterol, Calculated 23mg/dL (0-40) HDL Cholesterol 16mg/dL (40-60) Cholesterol/HDL Ratio 8.7 Thyroid Stimulating Hormone (TSH) 1.712uIU/mL (0.358-3.74) Glucose (Fingerstick) 62mg/dL (70-99) 42mg/dL (70-99) 85mg/dL (70-99) Test 10/21/16 09:40 10/21/16 10:00 10/21/16 12:37 Prothrombin Time 16.6SEC (11.7-14.0) Prothromb Time International Ratio 1.4 (0.8-1.1) Lactic Acid Level 1.9mmol/L (0.4-2.0) Creatine Kinase 391U/L (39-308) Glucose (Fingerstick) 89mg/dL (70-99) Review of Systems Review of Systems no pain some weakness, foot pain diarrhea Assessment and Plan Assessmemt and Plan Problems Medical Problems: (1) Acute renal failure Status: Acute (2) Atrial fibrillation with RVR Status: Acute (3) Lactic acidosis Status: Acute (4) Severe sepsis Status: Acute (5) Uncontrolled diabetes mellitus Status: Acute Problems: Comment Review of Relevant I have reviewed the following items jovan (where applicable) has been applied. Labs Laboratory Tests Test 10/20/16 13:17 10/20/16 13:25 10/20/16 14:50 10/20/16 17:10 Glucose (Fingerstick) 351mg/dL (70-99) White Blood Count 4.3x10^3/uL (4.0-11.0) Red Blood Count 4.98x10^6/uL (4.30-5.70) Hemoglobin 14.3g/dL (13.0-17.5) Hematocrit 42.9% (39.0-53.0) Mean Corpuscular Volume 86fL (79-100) Mean Corpuscular Hemoglobin 29pg (25-35) Mean Corpuscular Hemoglobin Concent 33g/dL (31-37) Red Cell Distribution Width 14.1% (11.5-14.5) Platelet Count 114x10^3/uL (140-400) Neutrophils (%) (Auto) 96% (31-73) Lymphocytes (%) (Auto) 2% (24-48) Monocytes (%) (Auto) 1% (0-9) Eosinophils (%) (Auto) 0% (0-3) Basophils (%) (Auto) 1% (0-3) Neutrophils # (Auto) 4.1x10^3uL (1.8-7.7) Lymphocytes # (Auto) 0.1x10^3/uL (1.0-4.8) Monocytes # (Auto) 0.0x10^3/uL (0.0-1.1) Eosinophils # (Auto) 0.0x10^3/uL (0.0-0.7) Basophils # (Auto) 0.0x10^3/uL (0.0-0.2) Segmented Neutrophils % 47% (35-66) Band Neutrophils % 47% (0-9) Lymphocytes % 3% (24-48) Basophils % 1% (0-3) Metamyelocytes % 2% (0-0) Toxic Granulation Slight Toxic Vacuolation Mod Platelet Estimate Decreased (ADEQUATE) Giant Platelets Occ Erythrocyte Sedimentation Rate 99 (0-15) Prothrombin Time 18.1SEC (11.7-14.0) Prothromb Time International Ratio 1.6 (0.8-1.1) Sodium Level 135mmol/L (136-145) Potassium Level 4.4mmol/L (3.5-5.1) Chloride Level 96mmol/L (98-107) Carbon Dioxide Level 24mmol/L (21-32) Anion Gap 15 (6-14) Blood Urea Nitrogen 40mg/dL (8-26) Creatinine 3.0mg/dL (0.7-1.3) Estimated GFR (Cockcroft-Gault) 20.7 Glucose Level 331mg/dL (70-99) Hemoglobin A1c 9.3% (4.8-5.6) Lactic Acid Level 5.9mmol/L (0.4-2.0) 3.7mmol/L (0.4-2.0) 2.5mmol/L (0.4-2.0) Calcium Level 8.9mg/dL (8.5-10.1) Magnesium Level 1.9mg/dL (1.8-2.4) Total Bilirubin 1.8mg/dL (0.2-1.0) Direct Bilirubin 0.8mg/dL (0.0-0.2) Aspartate Amino Transf (AST/SGOT) 23U/L (15-37) Alanine Aminotransferase (ALT/SGPT) 10U/L (16-63) Alkaline Phosphatase 106U/L (46-116) Creatine Kinase 427U/L (39-308) Creatine Kinase MB (Mass) 3.8ng/mL (0.0-3.6) Creatine Kinase MB Relative Index 0.9% (0-4) Troponin I Quantitative 0.026ng/mL (0.000-0.055) GG-Kvp-[id number]-Type Natriuretic Peptide 32046xk/mL (0-124) Total Protein 7.1g/dL (6.4-8.2) Albumin 1.9g/dL (3.4-5.0) Thyroid Stimulating Hormone (TSH) 3.708uIU/mL (0.358-3.74) Test 10/20/16 17:31 10/20/16 20:47 10/21/16 03:10 10/21/16 04:06 Glucose (Fingerstick) 327mg/dL (70-99) 285mg/dL (70-99) 62mg/dL (70-99) White Blood Count 8.1x10^3/uL (4.0-11.0) Red Blood Count 4.56x10^6/uL (4.30-5.70) Hemoglobin 12.9g/dL (13.0-17.5) Hematocrit 38.5% (39.0-53.0) Mean Corpuscular Volume 85fL (79-100) Mean Corpuscular Hemoglobin 28pg (25-35) Mean Corpuscular Hemoglobin Concent 34g/dL (31-37) Red Cell Distribution Width 14.3% (11.5-14.5) Platelet Count 90x10^3/uL (140-400) Neutrophils (%) (Auto) 91% (31-73) Lymphocytes (%) (Auto) 4% (24-48) Monocytes (%) (Auto) 5% (0-9) Eosinophils (%) (Auto) 0% (0-3) Basophils (%) (Auto) 0% (0-3) Neutrophils # (Auto) 7.4x10^3uL (1.8-7.7) Lymphocytes # (Auto) 0.3x10^3/uL (1.0-4.8) Monocytes # (Auto) 0.4x10^3/uL (0.0-1.1) Eosinophils # (Auto) 0.0x10^3/uL (0.0-0.7) Basophils # (Auto) 0.0x10^3/uL (0.0-0.2) Sodium Level 133mmol/L (136-145) Potassium Level 4.2mmol/L (3.5-5.1) Chloride Level 99mmol/L (98-107) Carbon Dioxide Level 23mmol/L (21-32) Anion Gap 11 (6-14) Blood Urea Nitrogen 50mg/dL (8-26) Creatinine 3.1mg/dL (0.7-1.3) Estimated GFR (Cockcroft-Gault) 20.0 Glucose Level 72mg/dL (70-99) Calcium Level 8.2mg/dL (8.5-10.1) Triglycerides Level 114mg/dL (0-150) Cholesterol Level 139mg/dL (0-200) LDL Cholesterol, Calculated 100mg/dL (0-100) VLDL Cholesterol, Calculated 23mg/dL (0-40) HDL Cholesterol 16mg/dL (40-60) Cholesterol/HDL Ratio 8.7 Thyroid Stimulating Hormone (TSH) 1.712uIU/mL (0.358-3.74) Test 10/21/16 08:28 10/21/16 09:22 10/21/16 09:40 10/21/16 10:00 Glucose (Fingerstick) 42mg/dL (70-99) 85mg/dL (70-99) Prothrombin Time 16.6SEC (11.7-14.0) Prothromb Time International Ratio 1.4 (0.8-1.1) Lactic Acid Level 1.9mmol/L (0.4-2.0) Creatine Kinase 391U/L (39-308) Test 10/21/16 12:37 Glucose (Fingerstick) 89mg/dL (70-99) Laboratory Tests Test 10/20/16 14:50 10/20/16 17:10 10/20/16 17:31 10/20/16 20:47 Lactic Acid Level 3.7mmol/L (0.4-2.0) 2.5mmol/L (0.4-2.0) Glucose (Fingerstick) 327mg/dL (70-99) 285mg/dL (70-99) Test 10/21/16 03:10 10/21/16 04:06 10/21/16 08:28 10/21/16 09:22 White Blood Count 8.1x10^3/uL (4.0-11.0) Red Blood Count 4.56x10^6/uL (4.30-5.70) Hemoglobin 12.9g/dL (13.0-17.5) Hematocrit 38.5% (39.0-53.0) Mean Corpuscular Volume 85fL (79-100) Mean Corpuscular Hemoglobin 28pg (25-35) Mean Corpuscular Hemoglobin Concent 34g/dL (31-37) Red Cell Distribution Width 14.3% (11.5-14.5) Platelet Count 90x10^3/uL (140-400) Neutrophils (%) (Auto) 91% (31-73) Lymphocytes (%) (Auto) 4% (24-48) Monocytes (%) (Auto) 5% (0-9) Eosinophils (%) (Auto) 0% (0-3) Basophils (%) (Auto) 0% (0-3) Neutrophils # (Auto) 7.4x10^3uL (1.8-7.7) Lymphocytes # (Auto) 0.3x10^3/uL (1.0-4.8) Monocytes # (Auto) 0.4x10^3/uL (0.0-1.1) Eosinophils # (Auto) 0.0x10^3/uL (0.0-0.7) Basophils # (Auto) 0.0x10^3/uL (0.0-0.2) Sodium Level 133mmol/L (136-145) Potassium Level 4.2mmol/L (3.5-5.1) Chloride Level 99mmol/L (98-107) Carbon Dioxide Level 23mmol/L (21-32) Anion Gap 11 (6-14) Blood Urea Nitrogen 50mg/dL (8-26) Creatinine 3.1mg/dL (0.7-1.3) Estimated GFR (Cockcroft-Gault) 20.0 Glucose Level 72mg/dL (70-99) Calcium Level 8.2mg/dL (8.5-10.1) Triglycerides Level 114mg/dL (0-150) Cholesterol Level 139mg/dL (0-200) LDL Cholesterol, Calculated 100mg/dL (0-100) VLDL Cholesterol, Calculated 23mg/dL (0-40) HDL Cholesterol 16mg/dL (40-60) Cholesterol/HDL Ratio 8.7 Thyroid Stimulating Hormone (TSH) 1.712uIU/mL (0.358-3.74) Glucose (Fingerstick) 62mg/dL (70-99) 42mg/dL (70-99) 85mg/dL (70-99) Test 10/21/16 09:40 10/21/16 10:00 10/21/16 12:37 Prothrombin Time 16.6SEC (11.7-14.0) Prothromb Time International Ratio 1.4 (0.8-1.1) Lactic Acid Level 1.9mmol/L (0.4-2.0) Creatine Kinase 391U/L (39-308) Glucose (Fingerstick) 89mg/dL (70-99) Microbiology 10/20/16 Blood Culture - Final, Complete Medications Current Medications Diltiazem HCl 20 mg 20 mg 1X ONCE IVP Last administered on 10/20/16 13:35; Start 10/20/16 at 13:30; Stop 10/20/16 at 13:31; Status DC Diltiazem HCl 125 mg/Dextrose 125 ml @ 10 mls/hr 1X ONCE IV Last administered on 10/20/16 13:49; Start 10/20/16 at 13:30; Stop 10/20/16 at 19:37; Status DC Sodium Chloride (Iv Sodium Chloride 0.9% 1000ml Bag) 1,000 ml @ 100 mls/hr Q10H IV Last administered on 10/20/16 13:45; Start 10/20/16 at 13:30; Stop at 23:29; Status DC Diltiazem HCl (Cardizem) 20 mg 1X ONCE IVP Last administered on 10/20/16 14:16 ; Start 10/20/16 at 14:00; Stop 10/20/16 at 14:01; Status DC Vancomycin HCl (Vanco Per Pharmacy) 1 each PRN DAILY PRN MC SEE COMMENTS Last administered on 10/20/16 16:49; Start 10/20/16 at 14:45; Stop 10/21/16 at 07:42; Status DC Piperacillin Sod/ Tazobactam Sod 1 each 1 each PRN DAILY PRN MC SEE COMMENTS; Start 10/20/16 at 14:45; Stop 10/21/16 at 07:49; Status DC Vancomycin HCl 2 gm/Sodium Chloride 500 ml @ 250 mls/hr 1X ONCE IV Last administered on 10/20/16 15:45; Start 10/20/16 at 15:00; Stop 10/20/16 at 16:59; Status DC Piperacillin Sod/ Tazobactam Sod/ Sodium Chloride (Zosyn/Iv Sodium Chloride 0.9 % 50ml) 50 ml @ 100 mls/hr 1X ONCE IV Last administered on 10/20/16 15:04; Start 10/20/16 at 15:00; Stop 10/20/16 at 15:29; Status DC Ondansetron HCl (Zofran) 4 mg PRN Q8HRS PRN IV NAUSEA/VOMITING; Start 10/20/16 at 15:00; Stop 10/20/16 at 15:16; Status DC Fentanyl Citrate 50 mcg 50 mcg PRN Q2HR PRN IV PAIN; Start 10/20/16 at 15:00; Stop 10/21/16 at 14:59 Sodium Chloride (Iv Sodium Chloride 0.9% 1000ml Bag) 1,000 ml @ 100 mls/hr Q10H IV Last administered on 10/21/16 09:21; Start 10/20/16 at 15:30; Stop at 15:29 Acetaminophen (Tylenol) 650 mg PRN Q4HRS PRN PO FEVER; Start 10/20/16 at 15:00; Stop 10/21/16 at 14:59 Ondansetron HCl (Zofran) 4 mg PRN Q6HRS PRN IV NAUSEA/VOMITING; Start 10/20/16 at 15:12 Insulin Aspart (Novolog) 0-9 UNITS TIDWMEALS SQ Last administered on 10/20/16 18:23; Start 10/20/16 at 17:00 Dextrose 12.5 gm PRN Q15MIN PRN IV SEE COMMENTS Last administered on 10/21/16 08:29; Start 10/20/16 at 15:15 Docusate Sodium (Colace) 100 mg BID PO Last administered on 10/21/16 09:20; Start 10/20/16 at 21:00 Glimepiride (Amaryl) 2 mg BID PO ; Start 10/20/16 at 21:00; Status UNV Acetaminophen/ Hydrocodone Bitart (Lortab 7.5/325) 1 tab PRN Q3HRS PRN PO PAIN ; Start 10/20/16 at 15:15 Glimepiride (Amaryl) 4 mg BIDWMEALS PO Last administered on 10/20/16 17:32; Start 10/20/16 at 17:00 Insulin Detemir (Levemir) 30 units QHS SQ Last administered on 10/20/16 21:03; Start 10/20/16 at 21:00 Ondansetron HCl 4 mg 4 mg Q8HRS PO Last administered on 10/21/16 06:17; Start 10/20/16 at 22:00 Sodium Chloride 500 ml @ 500 mls/hr 1X ONCE IV ; Start 10/20/16 at 15:30; Stop 10/20/16 at 16:29; Status DC Piperacillin Sod/ Tazobactam Sod 2.25 gm/Sodium Chloride 50 ml @ 100 mls/hr Q6HRS IV Last administered on 10/21/16 12:00; Start 10/21/16 at 00:00 Vancomycin HCl/ Sodium Chloride (Iv Sodium Chloride 0.9% 250ml) 250 ml @ 167 mls/hr Q24H IV ; Start 10/21/16 at 16:00; Stop 10/21/16 at 16:00; Status DC Vancomycin HCl 1 each 1 each 1X ONCE MC ; Start 10/22/16 at 15:30; Stop 10/22/16 at 15:31; Status Cancel Dopamine HCl/ Dextrose 250 ml @ 13.183 mls/ hr CONT PRN IV SEE I/O RECORD Last administered on 10/20/16 20:38; Start 10/20/16 at 19:30 Digoxin (Lanoxin) 250 mcg 1X ONCE IV Last administered on 10/20/16 21:02; Start 10/20/16 at 20:45; Stop 10/20/16 at 20:46; Status DC Digoxin (Lanoxin) 250 mcg 1X ONCE IV Last administered on 10/21/16 01:48; Start 10/21/16 at 02:00; Stop 10/21/16 at 02:01; Status DC Digoxin 250 mcg 250 mcg 1X ONCE IV Last administered on 10/21/16 04:12; Start 10/21/16 at 04:15; Stop 10/21/16 at 04:16; Status DC Diltiazem HCl 125 mg/Dextrose 125 ml @ 0 mls/hr CONT PRN IV SEE I/O RECORD Last administered on 10/21/16 05:12; Start 10/21/16 at 04:15 Linezolid 300 ml @ 300 mls/hr Q12HR IV Last administered on 10/21/16 09:20; Start 10/21/16 at 09:00 Magnesium Sulfate/ Dextrose 50 ml @ 25 mls/hr PRN DAILY PRN IV for Mag < 1.7 on am labs; Start 10/21/16 at 09:45 Albumin Human (Plasmanate) 500 ml @ 125 mls/hr 1X ONCE IV Last administered on 10/21/16 10:25; Start 10/21/16 at 09:45; Stop 10/21/16 at 13:44; Status DC Ondansetron HCl (Zofran) 4 mg PRN Q6HRS PRN IV Nausea; Start 10/21/16 at 10:00; Stop 10/22/16 at 09:59 Fentanyl Citrate (Fentanyl 2ml Vial) 25 mcg PRN Q5MIN PRN IV MILD PAIN; Start 10/21/16 at 10:00; Stop 10/22/16 at 09:59 Fentanyl Citrate (Fentanyl 2ml Vial) 50 mcg PRN Q5MIN PRN IV MODERATE PAIN; Start 10/21/16 at 10:00; Stop 10/22/16 at 09:59 Morphine Sulfate 1 mg 1 mg PRN Q10MIN PRN IV SEVERE PAIN; Start 10/21/16 at 10: 00; Stop 10/22/16 at 09:59 Lactated Ringer's (Iv Lactated Ringers) 1,000 ml @ 30 mls/hr Q24H IV ; Start at 09:50; Stop 10/21/16 at 21:49 Lidocaine HCl 2 ml 1X PRN PRN ID IV START; Start 10/21/16 at 10:00; Stop at 09:59 Hydromorphone HCl (Dilaudid) 0.5 mg PRN Q10MIN PRN IV SEV PAIN,Second choice; Start 10/21/16 at 10:00; Stop 10/22/16 at 09:59 Prochlorperazine Edisylate 5 mg 5 mg PACU PRN PRN IV NAUSEA; Start 10/21/16 at 10:00; Stop 10/22/16 at 09:59 Sodium Chloride (Iv Sodium Chloride 0.9% 500ml Bag) 500 ml @ 0 mls/hr PRN QID PRN IV UO< 30cc/hr over previous 6hrs; Start 10/21/16 at 10:15 Ondansetron HCl (Zofran) 4 mg PRN Q6HRS PRN IV Nausea; Start 10/21/16 at 11:30; Stop 10/22/16 at 11:29 Morphine Sulfate 1 mg 1 mg PRN Q10MIN PRN IV SEVERE PAIN; Start 10/21/16 at 11: 30; Stop 10/22/16 at 11:29 Lactated Ringer's (Iv Lactated Ringers) 1,000 ml @ 0 mls/hr Q0M IV ; Start 10/21 at 11:19; Stop 10/21/16 at 23:18 Lidocaine HCl 2 ml 1X PRN PRN ID IV START; Start 10/21/16 at 11:30; Stop at 11:29 Hydromorphone HCl (Dilaudid) 0.5 mg PRN Q10MIN PRN IV SEV PAIN,Second choice; Start 10/21/16 at 11:30; Stop 10/22/16 at 11:29 Prochlorperazine Edisylate (Compazine) 5 mg PACU PRN PRN IV NAUSEA; Start at 11:30; Stop 10/22/16 at 11:29 Atorvastatin Calcium (Lipitor) 20 mg QHS PO ; Start 10/21/16 at 21:00 Aspirin (Ecotrin) 81 mg DAILYWBKFT PO ; Start 10/21/16 at 12:00 Ondansetron HCl (Zofran) 4 mg PRN Q6HRS PRN IV Nausea; Start 10/22/16 at 07:00; Stop 10/23/16 at 06:59 Morphine Sulfate 1 mg 1 mg PRN Q10MIN PRN IV SEVERE PAIN; Start 10/22/16 at 07: 00; Stop 10/23/16 at 06:59 Lactated Ringer's (Iv Lactated Ringers) 1,000 ml @ 30 mls/hr Q24H IV ; Start at 07:00; Stop 10/22/16 at 18:59 Lidocaine HCl 2 ml 1X PRN PRN ID IV START; Start 10/22/16 at 07:00; Stop at 06:59 Hydromorphone HCl (Dilaudid) 0.5 mg PRN Q10MIN PRN IV SEVERE PAIN, Second choice; Start 10/22/16 at 07:00; Stop 10/23/16 at 06:59 Prochlorperazine Edisylate (Compazine) 5 mg PACU PRN PRN IV NAUSEA; Start at 07:00; Stop 10/23/16 at 06:59 Active Scripts Active Reported Zofran Odt (Ondansetron) 8 Mg Tab.rapdis 1 Tab PO Q8HRS Colace (Docusate Sodium) 100 Mg Capsule 1 Cap PO BID Hydrocodone-Apap 7.5-325 (Hydrocodone Bit/Acetaminophen) 1 Each Tablet 1 Tab PO Q3HRS PRN Glimepiride 4 Mg Tablet 1 Tab PO BID Glimepiride 2 Mg Tablet 1 Tab PO BID Levemir (Insulin Detemir) 100 Unit/1 Ml Vial 30 Unit SQ HS Vitals/I & O Vital Sign - Last 24 Hours 10/20/16 10/20/16 10/20/16 10/20/16 14:16 14:30 14:39 15:07 Pulse 132 114 102 100 Resp 28 B/P 137/65 108/57 116/55 101/58 Pulse Ox 97 95 95 O2 Delivery Room Air Room Air Room Air 10/20/16 10/20/16 10/20/16 10/20/16 15:35 16:25 17:04 19:05 Temp 98.2 98.2 Pulse 104 98 108 Resp 26 26 22 B/P 106/54 113/56 105/54 Pulse Ox 97 97 95 O2 Delivery Room Air Room Air Room Air Room Air 10/20/16 10/20/16 10/20/16 10/20/16 19:13 19:15 20:00 20:02 Temp 98.2 98.2 Pulse 91 104 105 Resp 18 18 B/P 74/39 92/49 92/49 Pulse Ox 98 96 O2 Delivery Room Air Room Air Room Air Room Air O2 Flow Rate 96.0 10/20/16 10/20/16 10/20/16 10/20/16 20:30 21:00 21:02 22:00 Pulse 104 106 112 114 B/P 100/50 140/54 100/50 127/50 10/20/16 10/21/16 10/21/16 10/21/16 23:07 00:02 01:18 01:48 Temp 98.2 98.2 Pulse 118 109 111 111 Resp 20 B/P 98/45 93/47 104/47 104/47 Pulse Ox 94 O2 Delivery Room Air 10/21/16 10/21/16 10/21/16 10/21/16 02:02 03:00 04:02 04:12 Temp 97.3 97.3 Pulse 106 120 145 170 Resp 18 20 B/P 113/55 96/51 116/57 96/51 Pulse Ox 94 O2 Delivery Room Air 10/21/16 10/21/16 10/21/16 10/21/16 05:15 05:45 06:00 06:15 Temp 99.1 99.1 Pulse 122 166 110 122 Resp 20 16 B/P 90/43 116/56 118/52 120/53 Pulse Ox 96 95 O2 Delivery Room Air Room Air 10/21/16 10/21/16 10/21/16 10/21/16 06:30 08:00 08:00 08:00 Temp 98.1 98.1 Pulse 129 125 124 Resp 20 20 20 B/P 111/50 119/72 119/48 Pulse Ox 95 96 95 O2 Delivery Room Air Room Air Room Air Room Air 10/21/16 10/21/16 10/21/16 09:00 10:00 12:00 Pulse 86 98 Resp 22 22 B/P 80/49 95/46 Pulse Ox 96 96 O2 Delivery Room Air Room Air Room Air Intake and Output 10/20/16 10/20/16 10/21/16 15:00 23:00 07:00 Intake Total 920 ml 1260 ml Output Total 0 ml 200 ml Balance 920 ml 1060 ml BEKA CARRION MD Oct 21, 2016 14:14
[2016-10-21] MEDS ORDERED: VANCOMYCIN 1.25 GM in IV NORMAL SALINE 250ML 250 ML IV SCH (16:00)
[2016-10-21 17:03] LABS: BILIRUBIN,URINE NEGATIVE (NEG); GLUCOSE,URINE NEGATIVE (NEG); NITRITE,URINE NEGATIVE (NEG); PH,URINE 5.5; PROTEIN,URINE 100 mg/dL (NEG-TRACE)
[2016-10-21 17:26] LABS: BACTERIA,URINE 0 /HPF (0-FEW); RBC,URINE 20-40 /HPF (0-2); SQUAMOUS EPITHELIAL CELL,UR FEW /LPF; WBC,URINE >40 /HPF (0-4)
--- NOTE | 2016-10-21 18:07 | CONS ---
DATE OF CONSULTATION: 10/21/2016 REQUESTING PHYSICIAN: Dr. Simmons. REASON FOR CONSULTATION: Diabetic foot infection. HISTORY OF PRESENT ILLNESS: This is a 71-year-old gentleman with history of diabetes with poor control. The patient has had bilateral TMA done in the past, now presented with foul smelling eschar on the left foot. Evidently, he says it has been going on for 3 weeks, but he thought that "it was getting better." Denies any fever. Denies any nausea, vomiting, diarrhea. Denies any chest pain or shortness of breath. The patient was noted to have hypotension, lactic acidosis up to 5.9 and acute renal failure. The patient was admitted to ICU. The patient received fluids. Blood pressure is stable. He is receiving vancomycin and Zosyn and consult has been requested. The patient denies any other complaints or problems, has not seen a physician at least since that he noticed this is going on for 3 weeks or so. PAST MEDICAL HISTORY: 1. Positive for diabetes mellitus with poor control. 2. Renal insufficiency. 3. Diabetic foot infections requiring eventually bilateral TMA. 4. Hypertension. SOCIAL HISTORY: Positive for still smoking. No alcohol use or drug use. ALLERGIES: LISTED TETANUS TOXOID. CURRENT MEDICATIONS: Reviewed. The patient is on vancomycin and Zosyn. REVIEW OF SYSTEMS: As per HPI, all other systems reviewed are negative. PHYSICAL EXAMINATION: GENERAL: Alert, oriented gentleman, not in any distress. VITAL SIGNS: Stable. Temperature max is 99.1, pulse 129, respirations 20, blood pressure 111/50. HEENT: Both pupils are round and reacting. No conjunctival lesion, no lesion in the mouth. NECK: Supple, no JVP, no lymphadenopathy. LUNGS: Clear. HEART: S1, S2 regular. ABDOMEN: Benign. EXTREMITIES: Right lower extremity TMA without any skin breakdown. Left lower extremity TMA with extensive foul smelling dripping pus eschar on the lateral side. The depth cannot be judged. SKIN: The rest of the skin examination is unremarkable. NEUROLOGIC: The patient is neurologically intact. LABORATORY DATA: White count is 8.1, hemoglobin 12.9, platelets are 90,000, sed rate is 99, BUN 50, creatinine 3.1. Lactic acid 5.9, which is improving. BNP is 14,379. Foot x-ray done which did not show any acute changes. IMPRESSION: 1. Extensive left foot diabetic foot infection with foul smelling discharge and large eschar. 2. Septic shock. 3. Lactic acidosis. 4. Acute renal failure. 5. Diabetes with poor control. RECOMMENDATIONS: I would continue Zosyn, change vancomycin to Zyvox. Having acute renal failure, supportive care, blood culture and wound culture. The patient is going to need I and D, may even likely will need below-knee amputation. The patient was also advised to quit smoking. Thank you very much, Dr. Simmons, for giving me the opportunity to participate in this patient's care. The patient was also advised to quit smoking JASVIR DE LEON MD DR: ITALIA/brenda JOB#: [id number] / [id number]
[2016-10-21] MEDS: ATORVASTATIN CALCIUM 20 MG TABLET PO SCH (20:54)
[2016-10-21] MEDS ORDERED: INSULIN DETEMIR 300 UNITS/3 ML INSULN.PEN. SQ SCH (21:00)
[2016-10-22] VITALS (26 sets, daily range): BP systolic 76–125; BP diastolic 32–70
[2016-10-22] MEDS ORDERED: INSULIN REGULAR 100 UNIT/ML 10ML VIAL. IV ONE (01:00)
--- NOTE | 2016-10-22 02:26 | CONS ---
DATE OF CONSULTATION: PRIMARY PHYSICIAN: Dr. Simmons. REASON FOR CONSULTATION: Acute renal failure. HISTORY OF PRESENT ILLNESS: The patient is a 71-year-old gentleman who was brought to the ER by his son. He was noted to be generally weak, fatigued, tired, had diarrhea for about a week. He was noted to have severe lactic acidosis. He was also found to be in AFib, RVR and was placed on the Cardizem drip and was sent to tele. He, however, developed significant hypotension and was sent to the ICU on dopamine. In this setting, we were asked to see him for a creatinine of 3.0. He is also noted to have an elevated lactic acid, is noted to have an elevated NT-proBNP, albumin was 1.9. He has been given IV fluids, although the total amounts are not documented well by reports and his creatinine has come down somewhat. His lactic acid is better. We just do not have accurate urine outputs since he is noted to be incontinent and ____. Whiting catheter has been requested. Central line will be placed for CVP monitoring. He apparently is not felt to have sepsis per se. The patient denies urinary difficulty. He denies NSAID use. PAST MEDICAL HISTORY: Other than as documented is positive for decreased vision, history of orthostatic hypotension in the past, occasional constipation and some amount of PVD with amputation of pretty much all his toes on both feet, chronic arthritis, still smokes a cigar. FAMILY HISTORY: Positive for pneumonia and stomach cancer. SOCIAL HISTORY: He is . No alcohol use currently. Rest of the details, see electronic record. ANJELICA DE LEON MD DR: LANCE/brenda JOB#: [id number] / [id number]
[2016-10-22 03:43] LABS: ALBUMIN 1.4 g/dL (3.4-5.0); CALCIUM 7.3 mg/dL (8.5-10.1); CREATININE 3.3 mg/dL (0.7-1.3); GFR 18.6; PHOSPHORUS 3.1 mg/dL (2.6-4.7); POTASSIUM 3.5 mmol/L (3.5-5.1)
[2016-10-22 04:19] LABS: UR PROTEIN RD 84.8 mg/dL (Not Estab.)
[2016-10-22] MEDS: DEXTROSE 50% 25 GM / 50ML DISP.SYRIN. IV PRN (04:19)
[2016-10-22] MEDS: IV NORMAL SALINE 1000ML BAG 1,000 ML IV SCH ×2 (04:21→20:17)
[2016-10-22] MEDS ORDERED: IV DEXTROSE 10% 1,000 ML IV SCH (04:45)
[2016-10-22] MEDS: PIPERACILLIN/TAZOBACTAM 2.25 GM in IV NORMAL SALINE 50ML 50 ML IV SCH ×4 (06:15→23:51)
[2016-10-22] MEDS ORDERED: BUPIVACAINE MPF 0.5% 30 ML VIAL. ONE (06:45)
[2016-10-22] MEDS ORDERED: LIDOCAINE 1% 20 ML VIAL. ONE (06:46)
--- NOTE | 2016-10-22 06:55 | PDOC ---
TCOM NOTE This is transcutaneous oximetry assessment to the left lower extremity to assess potential amputation level following severe left foot diabetic infection. This is a 71-year-old patient recently admitted to the hospital for sepsis and finding of diabetic foot infection, lactic acidosis and poor glucose control. He is status post bilateral TMA and his care is complicated by dysrhythmias well. This transcutaneous assessment was performed in the inpatient setting. Past medical history appears pertinent for diabetes with neuropathy, hypertension and peripheral arterial disease Surgical history includes right TMA and prior left foot surgery as well. Family history positive for hypertension Social history pertinent for tobacco use Medications and allergies as noted in the chart. Transcutaneous oximetry leads are placed as follows: Lead #1 is in a medial supramalleolar site, lead #2 is at a mid calf site medially, lead #3 is at a proximal lower leg site at roughly the tibial tubercle , lead #4 is at a lateral supramalleolar site, lead #5 is at a mid calf lateral site and lead #6 is at a tibial tubercle level at the lateral lower leg. Room air oximetry measurements were obtained at 1 aly and are as follows: Distally at leads 1 and 2 the values are 16 mm or mercury and 14 mmHg. At the mid calf level, medially and laterally the values are 30 mm mercury and 24 mm mercury. Proximally at the tibial tubercle level the values are medially and laterally, 44 mmHg and 77 mm of mercury. Values less than 20 mm or mercury suggest poor healing of amputation performed at that level. These are noted at the supramalleolar leads 1 and 4. Proximal to this however all leads are greater than 20 mm of mercury with BKA level readings of 44 mmHg and 77 mmHg. This suggest adequate tissue oxygenation for healing of BKA if infection, offloading and moisture control are well managed. DONNA MOE DO Oct 22, 2016 06:55
[2016-10-22] MEDS ORDERED: LIDOCAINE 1% 1 ML SYRINGE. ID PRN (07:00)
[2016-10-22] MEDS ORDERED: MORPHINE SULFATE 2 MG/ML DISP.SYRIN. IV PRN (07:00)
[2016-10-22] MEDS ORDERED: IV RINGERS,LACTATED 1000ML 1,000 ML IV SCH (07:00)
[2016-10-22] MEDS ORDERED: PROCHLORPERAZINE 10 MG/2 ML VIAL. IV PRN (07:00)
[2016-10-22] MEDS ORDERED: ONDANSETRON PF 4 MG/2 ML VIAL. IV PRN (07:00)
[2016-10-22] MEDS ORDERED: HYDROMORPHONE 2 MG/ML VIAL. IV PRN (07:00)
--- NOTE | 2016-10-22 07:27 | PDOC ---
Infectious Disease Note Subjective Subjective pt feeling good surgery today ROS ROS no n/v/d/pain Vital Sign Vital Signs Vital Signs Date Time Temp Pulse Resp B/P Pulse Ox O2 Delivery O2 Flow Rate FiO2 10/22/16 06:00 97 20 113/54 98 Nasal Cannula 2.0 10/22/16 04:00 98.1 98.1 Physical Exam PHYSICAL EXAM GENERAL: NAD, Alert HEENT: PERRL, OC/OP NECK: Supple, no JVD, no LN LUNGS: Clear HEART: S1S2, no gallop, no murmur ABD: Soft, NT, no organomegaly, no rebound EXT: No edema, no cyanosis,, left foot draining infected wound [employer] COUNTERPERSON: Alert, oriented x 3, no focal neurologic deficit SKIN: No rash IV: ok Labs Lab Laboratory Tests Test 10/21/16 08:28 10/21/16 09:22 10/21/16 09:40 10/21/16 10:00 Glucose (Fingerstick) 42mg/dL (70-99) 85mg/dL (70-99) Prothrombin Time 16.6SEC (11.7-14.0) Prothromb Time International Ratio 1.4 (0.8-1.1) Lactic Acid Level 1.9mmol/L (0.4-2.0) Creatine Kinase 391U/L (39-308) Test 10/21/16 12:37 10/21/16 16:48 10/21/16 17:51 10/21/16 19:22 Glucose (Fingerstick) 89mg/dL (70-99) 41mg/dL (70-99) 80mg/dL (70-99) Urine Collection Type Unknown Urine Color Yellow Urine Clarity Cloudy Urine pH 5.5 Urine Specific [place] 1.015 Urine Protein 84.8mg/dL (Not Estab.) Urine Glucose (UA) Negativemg/dL (NEG) Urine Ketones (Stick) Negativemg/dL (NEG) Urine Blood Large (NEG) Urine Nitrite Negative (NEG) Urine Bilirubin Negative (NEG) Urine Urobilinogen Dipstick 1.0mg/dL (0.2 mg/dL) Urine Leukocyte Esterase Moderate (NEG) Urine RBC 20-40/HPF (0-2) Urine WBC >40/HPF (0-4) Urine Squamous Epithelial Cells Few/LPF Urine Amorphous Sediment Present/HPF Urine Bacteria 0/HPF (0-FEW) Urine Hyaline Casts Few/HPF Urine Granular Casts Many/HPF Urine Waxy Casts Few/HPF Urine Random Sodium <20mmol/L (Not Estab.) Urine Creatinine 90.4mg/dL (Not Estab.) Urine Protein/Creatinine Ratio 938mg/g creat (0-200) Clostridium difficile Toxin (PCR) Negative (Negative) Test 10/21/16 23:28 10/21/16 23:44 10/22/16 03:05 10/22/16 04:16 Glucose (Fingerstick) 40mg/dL (70-99) 148mg/dL (70-99) 37mg/dL (70-99) Hemoglobin 10.8g/dL (13.0-17.5) Sodium Level 133mmol/L (136-145) Potassium Level 3.5mmol/L (3.5-5.1) Chloride Level 102mmol/L (98-107) Carbon Dioxide Level 21mmol/L (21-32) Anion Gap 10 (6-14) Blood Urea Nitrogen 55mg/dL (8-26) Creatinine 3.3mg/dL (0.7-1.3) Estimated GFR (Cockcroft-Gault) 18.6 Glucose Level 47mg/dL (70-99) Calcium Level 7.3mg/dL (8.5-10.1) Phosphorus Level 3.1mg/dL (2.6-4.7) Magnesium Level 1.7mg/dL (1.8-2.4) Albumin 1.4g/dL (3.4-5.0) Test 10/22/16 04:41 10/22/16 06:36 Glucose (Fingerstick) 124mg/dL (70-99) 89mg/dL (70-99) Micro BC + 4/4 G + cocci Objective Assessment Extensive left foot infection Septic shock Lactic acidosis DM BC + , G + cocci Plan Plan of Care zyvox and zosyn supportive care today I and D, may need BKA later JASVIR DE LEON MD Oct 22, 2016 07:27
--- NOTE | 2016-10-22 07:52 | PDOC ---
SUBJECTIVE ROS RHETT/ ATN Doing same overall CVS: no Orthopnea, no CP RESP: no SOB, no LOZANO GI: no Nausea, no Vomiting : no Dysuria, no Urgency OBJECTIVE Vital Signs Vital Signs Date Time Temp Pulse Resp B/P Pulse Ox O2 Delivery O2 Flow Rate FiO2 10/22/16 06:00 97 20 113/54 98 Nasal Cannula 2.0 10/22/16 04:00 98.1 98.1 I & 0 Intake and Output 10/22/16 07:00 Intake Total 5748 ml Output Total 565 ml Balance 5183 ml Intake Oral 500 ml IV Total 4528 ml Other 720 ml Output Urine Total 565 ml # Voids 4 # Bowel Movements 4 PHYSICAL EXAM Physical Exam General Appearance: Awake Alert Oriented x 3 In no Distress Eyes: VIsion Unchanged Conjunctiva Normal EN: No EN Drainage Mucous Memb. moist; Neck: no JVD no JVP Supple no Thyromegaly CVS: S1 S2 no Murmur No Gallop No Rub +1 Edema on the left Resp: no Rales no Rhonchi no Acc. Muscle use GI: BS +ve NO Bruit Non Tender Non Distended : no CVA tenderness; no Suprapubic Tenderness Assessment & Plan ARF: suspect VMN. Cannot r/o ATN though. doubt Rhabdo with marginal CK. Creat is mildly worse but UO is picking up ct IVF as currently ordered. Current FLuid and E-lyte status does not necessitate emergent need for Dialysis. Will re- evaluate for Dialysis in am if solute clearance does not improve Underlying CKD III cannot be rule out matthew in setting of longstanding poorly controlled DM ? hypoVolemia - symptomatically better with IVF as ordered; much better Lactic Acidemia - resolved with IVF and vol repletion Oliguria - resolved with IVF and vol repletion HypoTN: resolved w ith IVF and vol repletion Poorly controlled DM HypoALbuminemia - suspect due to Ch infection. min Proteinruia by ratio Proteinruia by ratio - reval once infection is better. Cannot R/o infection related Gn OR underlying DM Nephropahty, ARB if needed Discussed Plan of Care and prognosis etc. at length with pt COMMENT/RELEVANT DATA Meds Current Medications Medications (Trade) Dose Ordered Sig/Salena Start Time Stop Time Status Last Admin Dose Admin Acetaminophen (Tylenol) 650 mg PRN Q4HRS PRN 10/20/16 15:00 10/21/16 14:59 DC Acetaminophen/ Hydrocodone Bitart (Lortab 7.5/325) 1 tab PRN Q3HRS PRN 10/20/16 15:15 Albumin Human (Plasmanate) 500 ml @ 125 mls/hr 1X ONCE 10/21/16 09:45 10/21/16 13:44 DC 10/21/16 10:25 125 MLS/HR Aspirin (Ecotrin) 81 mg [id number] 10/22/16 08:00 UNV Atorvastatin Calcium (Lipitor) 20 mg QHS 10/21/16 21:00 10/21/16 20:54 20 MG Bupivacaine HCl (Sensorcaine Mpf 0.5%) 30 ml STK-MED ONCE 10/22/16 06:45 10/22/16 06:46 DC Dextrose 1,000 ml @ 75 mls/hr [id number] 10/22/16 04:45 10/22/16 04:54 75 MLS/HR Digoxin (Lanoxin) 250 mcg 1X ONCE 10/21/16 02:00 10/21/16 02:01 DC 10/21/16 01:48 250 MCG Digoxin 250 mcg 250 mcg 1X ONCE 10/21/16 04:15 10/21/16 04:16 DC 10/21/16 04:12 250 MCG Diltiazem HCl (Cardizem) 20 mg 1X ONCE 10/20/16 14:00 10/20/16 14:01 DC 10/20/16 14:16 20 MG Diltiazem HCl 125 mg/Dextrose 125 ml @ 0 mls/hr CONT PRN 10/21/16 04:15 10/21/16 23:03 5 MLS/HR Diltiazem HCl 20 mg 20 mg 1X ONCE 10/20/16 13:30 10/20/16 13:31 DC 10/20/16 13:35 20 MG Diltiazem HCl/ Dextrose (Cardizem) 125 ml @ 10 mls/hr 1X ONCE 10/20/16 13:30 10/20/16 19:37 DC 10/20/16 13:49 10 MLS/HR Docusate Sodium (Colace) 100 mg BID 10/20/16 21:00 10/21/16 09:20 100 MG Dopamine HCl/ Dextrose 250 ml @ 13.183 mls/ hr CONT PRN 10/20/16 19:30 10/20/16 20:38 7.91 MLS/HR Fentanyl Citrate (Fentanyl 2ml Vial) 50 mcg PRN Q5MIN PRN 10/21/16 10:00 10/22/16 09:59 Fentanyl Citrate 50 mcg 50 mcg PRN Q2HR PRN 10/20/16 15:00 10/21/16 14:59 DC Glimepiride (Amaryl) 4 mg BIDWMEALS 10/20/16 17:00 10/21/16 14:52 DC 10/20/16 17:32 4 MG Hydromorphone HCl (Dilaudid) 0.5 mg PRN Q10MIN PRN 10/22/16 07:00 10/23/16 06:59 Insulin Aspart (Novolog) 0-9 UNITS TIDWMEALS 10/20/16 17:00 10/20/16 18:23 10 UNITS Insulin Detemir (Levemir) 20 units QHS 10/21/16 21:00 Insulin Detemir 30 units 30 units QHS 10/20/16 21:00 10/21/16 14:52 DC 10/20/16 21:03 30 UNITS Lactated Ringer's (Iv Lactated Ringers) 1,000 ml @ 30 mls/hr Q24H 10/22/16 07:00 10/22/16 18:59 Lidocaine HCl 20 ml STK-MED ONCE 10/22/16 06:46 10/22/16 06:47 DC Linezolid 300 ml @ 300 mls/hr Q12HR 10/21/16 09:00 10/21/16 20:54 300 MLS/HR Magnesium Sulfate/ Dextrose 50 ml @ 25 mls/hr PRN DAILY PRN 10/21/16 09:45 Morphine Sulfate 1 mg 1 mg PRN Q10MIN PRN 10/22/16 07:00 10/23/16 06:59 Ondansetron HCl (Zofran) 4 mg PRN Q6HRS PRN 10/22/16 07:00 10/23/16 06:59 Ondansetron HCl 4 mg 4 mg PRN Q8HRS PRN 10/22/16 14:00 Piperacillin Sod/ Tazobactam Sod 2.25 gm/Sodium Chloride 50 ml @ 100 mls/hr Q6HRS 10/21/16 00:00 10/22/16 06:15 100 MLS/HR Piperacillin Sod/ Tazobactam Sod 1 each 1 each PRN DAILY PRN 10/20/16 14:45 10/21/16 07:49 DC Piperacillin Sod/ Tazobactam Sod/ Sodium Chloride (Zosyn/Iv Sodium Chloride 0.9% 50ml) 50 ml @ 100 mls/hr 1X ONCE 10/20/16 15:00 10/20/16 15:29 DC 10/20/16 15:04 100 MLS/HR Prochlorperazine Edisylate (Compazine) 5 mg PACU PRN PRN 10/22/16 07:00 10/23/16 06:59 Prochlorperazine Edisylate 5 mg 5 mg PACU PRN PRN 10/21/16 10:00 10/22/16 09:59 Sodium Chloride 1,000 ml @ 125 mls/hr Q8H 10/21/16 18:00 10/22/16 04:21 100 MLS/HR Sodium Chloride (Iv Sodium Chloride 0.9% 500ml Bag) 500 ml @ 0 mls/hr PRN QID PRN 10/21/16 10:15 10/21/16 17:27 DC Sodium Chloride (Iv Sodium Chloride 0.9% 1000ml Bag) 1,000 ml @ 100 mls/hr Q10H 10/20/16 15:30 10/21/16 15:29 DC 10/21/16 11:30 100 MLS/HR Vancomycin HCl (Vanco Per Pharmacy) 1 each PRN DAILY PRN 10/20/16 14:45 10/21/16 07:42 DC 10/20/16 16:49 1 EACH Vancomycin HCl 1 each 1 each 1X ONCE 10/22/16 15:30 10/22/16 15:31 Cancel Vancomycin HCl 2 gm/Sodium Chloride 500 ml @ 250 mls/hr 1X ONCE 10/20/16 15:00 10/20/16 16:59 DC 10/20/16 15:45 250 MLS/HR Vancomycin HCl/ Sodium Chloride (Iv Sodium Chloride 0.9% 250ml) 250 ml @ 167 mls/hr Q24H 10/21/16 16:00 10/21/16 16:00 DC Lab Laboratory Tests Test 10/21/16 08:28 10/21/16 09:22 10/21/16 09:40 10/21/16 10:00 Glucose (Fingerstick) 42mg/dL (70-99) 85mg/dL (70-99) Prothrombin Time 16.6SEC (11.7-14.0) Prothromb Time International Ratio 1.4 (0.8-1.1) Lactic Acid Level 1.9mmol/L (0.4-2.0) Creatine Kinase 391U/L (39-308) Test 10/21/16 12:37 10/21/16 16:48 10/21/16 17:51 10/21/16 19:22 Glucose (Fingerstick) 89mg/dL (70-99) 41mg/dL (70-99) 80mg/dL (70-99) Urine Collection Type Unknown Urine Color Yellow Urine Clarity Cloudy Urine pH 5.5 Urine Specific [place] 1.015 Urine Protein 84.8mg/dL (Not Estab.) Urine Glucose (UA) Negativemg/dL (NEG) Urine Ketones (Stick) Negativemg/dL (NEG) Urine Blood Large (NEG) Urine Nitrite Negative (NEG) Urine Bilirubin Negative (NEG) Urine Urobilinogen Dipstick 1.0mg/dL (0.2 mg/dL) Urine Leukocyte Esterase Moderate (NEG) Urine RBC 20-40/HPF (0-2) Urine WBC >40/HPF (0-4) Urine Squamous Epithelial Cells Few/LPF Urine Amorphous Sediment Present/HPF Urine Bacteria 0/HPF (0-FEW) Urine Hyaline Casts Few/HPF Urine Granular Casts Many/HPF Urine Waxy Casts Few/HPF Urine Random Sodium <20mmol/L (Not Estab.) Urine Creatinine 90.4mg/dL (Not Estab.) Urine Protein/Creatinine Ratio 938mg/g creat (0-200) Clostridium difficile Toxin (PCR) Negative (Negative) Test 10/21/16 23:28 10/21/16 23:44 10/22/16 03:05 10/22/16 04:16 Glucose (Fingerstick) 40mg/dL (70-99) 148mg/dL (70-99) 37mg/dL (70-99) Hemoglobin 10.8g/dL (13.0-17.5) Sodium Level 133mmol/L (136-145) Potassium Level 3.5mmol/L (3.5-5.1) Chloride Level 102mmol/L (98-107) Carbon Dioxide Level 21mmol/L (21-32) Anion Gap 10 (6-14) Blood Urea Nitrogen 55mg/dL (8-26) Creatinine 3.3mg/dL (0.7-1.3) Estimated GFR (Cockcroft-Gault) 18.6 Glucose Level 47mg/dL (70-99) Calcium Level 7.3mg/dL (8.5-10.1) Phosphorus Level 3.1mg/dL (2.6-4.7) Magnesium Level 1.7mg/dL (1.8-2.4) Albumin 1.4g/dL (3.4-5.0) Test 10/22/16 04:41 10/22/16 06:36 Glucose (Fingerstick) 124mg/dL (70-99) 89mg/dL (70-99) ANJELICA DE LEON MD Oct 22, 2016 07:52
[2016-10-22] MEDS ORDERED: ASPIRIN ENTERIC COATED 81 MG TABLET.DR. PO SCH (08:00)
[2016-10-22] MEDS: INSULIN ASPART 300 UNITS/3 ML INSULN.PEN SQ SCH ×3 (08:00→17:59)
[2016-10-22] MEDS: ASPIRIN ENTERIC COATED 81 MG TABLET.DR. PO SCH (08:00)
[2016-10-22] MEDS ORDERED: PROPOFOL 20 ML IV ONE (08:02)
[2016-10-22] MEDS ORDERED: LIDOCAINE 2% 100 MG/5 ML DISP.SYRIN. ONE (08:02)
--- NOTE | 2016-10-22 08:18 | PDOC ---
BRIEF OPERATIVE NOTE Date: Oct 22, 2016 Pre-Op Diagnosis L plantar foot wound Post-Op Diagnosis same Procedure Performed I and D, wound VAC Surgeon Toby Cured Meats Supervisor Sandra Anesthesiologist Vish Anesthesia Type: General Blood Loss 25mL Specimens Obtained bone for Cx Complications none JUWAN WALLACE II, MD Oct 22, 2016 08:18
[2016-10-22] MEDS ORDERED: PHENYLEPHRINE in 0.9% NACL PF 1 MG/10 ML DISP.SYRIN. IV ONE (08:31)
[2016-10-22] MEDS ORDERED: ONDANSETRON PF 4 MG/2 ML VIAL. ONE (08:31)
[2016-10-22] MEDS ORDERED: SEVOFLURANE 31 TO 60 MINUTES. IH ONE (08:48)
[2016-10-22] MEDS ORDERED: DEXAMETHASONE SOD PHOS 20 MG/5 ML VIAL. ONE (08:48)
[2016-10-22] MEDS: DOCUSATE SODIUM 100 MG CAPSULE PO SCH ×2 (09:00→19:42)
[2016-10-22] MEDS ORDERED: ALBUMIN HUMAN 5% 500 ML IV ONE (09:45)
[2016-10-22] MEDS ORDERED: METOPROLOL TARTRATE 5 MG/5 ML VIAL. IVP PRN (09:45)
--- NOTE | 2016-10-22 09:48 | OP ---
DATE OF SURGERY: 10/22/2016 SURGEON: Janes Wallace MD FINISH INSPECTOR: Amy Flores. 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 PROCEDURE PERFORMED: 1. Irrigation and debridement of necrotic tissue and bone. 2. Application of wound VAC to wound, 10 x 10 and approximately 6 cm deep. SPECIMENS: Bone was sent for culture. REASON FOR PROCEDURE: The patient is a very pleasant 71-year-old gentleman who I had seen initially in consultation for forefoot wound and was performed a transmetatarsal amputation a couple of months ago, which healed. He developed a plantar foot wound that had been managed by the [facility], but unfortunately, progressed. I had seen him in consultation during this hospitalization. We discussed different options. I reviewed his TCOM measurements, which were not necessarily conducive to healing of this wound. The patient greatly desired to avoid below knee amputation and I thought it reasonable to perform this surgery and tried to get him set up for outpatient hyperbaric treatments. I do think he has a realization of there is a chance he is going to lose his foot and leg though. We did discuss risks, benefits, alternatives of the above surgery and he elected to proceed. DESCRIPTION OF PROCEDURE: The patient was greeted in the preoperative area by myself. The correct extremity was marked and verified. He was taken to the operative suite directly from the ICU and was transferred gently supine to the OR table and then had successful induction of general anesthesia. We then proceeded to prep and drape with Betadine in usual sterile fashion and clipped and then conducted a standard preoperative timeout. I then began the procedure by irrigating out the wound site to better appreciate and then using combination of sharp and rongeur, excision I debrided the necrotic appearing tissue. This bone was exposed. This wound was very soft and friable. It was easily delivered from the wound with a rongeur. I resected bone and the necrotic tissue, which I then irrigated out again and inspected the wound. I did feel I had enough soft tissue to cover the defect which was present in the central portion of the wound resulted from the bone I had excised. Therefore, I closed this with a simple interrupted 0 PDS suture. We then applied the wound VAC after achieving hemostasis that had a good seal prior to leaving the OR. We then cleansed and dried his left leg and he is awakened from anesthesia. He tolerated the surgery well. No complications. At the conclusion of surgery, he was transferred back to his ICU bed and taken to ICU in stable and extubated condition. Postop plan is for wound care to the supraspinatus care. He will be nonweightbearing left lower extremity. He will be maintained on antibiotics per Infectious Disease. No complications. JANES WALLACE MD DR: MAXIMINO/brenda JOB#: [id number] / [id number] MILO
--- NOTE | 2016-10-22 11:04 | PDOC ---
CARDIO Progress Notes Date and Time Date of Service 10/22/2016 Time of Evaluation 0945 Subjective Subjective: No Chest Pain, No shortness of breath, No Palpitations, No Dizziness, Other (surgical pain controlled) Vitals Vitals Vital Signs Date Time Temp Pulse Resp B/P Pulse Ox O2 Delivery O2 Flow Rate FiO2 10/22/16 08:00 Room Air 10/22/16 07:00 98.7 99 20 112/48 98 2.0 98.7 Weight Weight [ ] Input and Output Intake and Output Intake and Output 10/22/16 07:00 Intake Total 7748 ml Output Total 565 ml Balance 7183 ml Intake Oral 500 ml IV Total 6528 ml Other 720 ml Output Urine Total 565 ml # Voids 4 # Bowel Movements 4 Laboratory Labs Laboratory Tests Test 10/21/16 12:37 10/21/16 16:48 10/21/16 17:51 10/21/16 19:22 Glucose (Fingerstick) 89mg/dL (70-99) 41mg/dL (70-99) 80mg/dL (70-99) Urine Collection Type Unknown Urine Color Yellow Urine Clarity Cloudy Urine pH 5.5 Urine Specific [place] 1.015 Urine Protein 84.8mg/dL (Not Estab.) Urine Glucose (UA) Negativemg/dL (NEG) Urine Ketones (Stick) Negativemg/dL (NEG) Urine Blood Large (NEG) Urine Nitrite Negative (NEG) Urine Bilirubin Negative (NEG) Urine Urobilinogen Dipstick 1.0mg/dL (0.2 mg/dL) Urine Leukocyte Esterase Moderate (NEG) Urine RBC 20-40/HPF (0-2) Urine WBC >40/HPF (0-4) Urine Squamous Epithelial Cells Few/LPF Urine Amorphous Sediment Present/HPF Urine Bacteria 0/HPF (0-FEW) Urine Hyaline Casts Few/HPF Urine Granular Casts Many/HPF Urine Waxy Casts Few/HPF Urine Random Sodium <20mmol/L (Not Estab.) Urine Creatinine 90.4mg/dL (Not Estab.) Urine Protein/Creatinine Ratio 938mg/g creat (0-200) Clostridium difficile Toxin (PCR) Negative (Negative) Test 10/21/16 23:28 10/21/16 23:44 10/22/16 03:05 10/22/16 04:16 Glucose (Fingerstick) 40mg/dL (70-99) 148mg/dL (70-99) 37mg/dL (70-99) Hemoglobin 10.8g/dL (13.0-17.5) Sodium Level 133mmol/L (136-145) Potassium Level 3.5mmol/L (3.5-5.1) Chloride Level 102mmol/L (98-107) Carbon Dioxide Level 21mmol/L (21-32) Anion Gap 10 (6-14) Blood Urea Nitrogen 55mg/dL (8-26) Creatinine 3.3mg/dL (0.7-1.3) Estimated GFR (Cockcroft-Gault) 18.6 Glucose Level 47mg/dL (70-99) Calcium Level 7.3mg/dL (8.5-10.1) Phosphorus Level 3.1mg/dL (2.6-4.7) Magnesium Level 1.7mg/dL (1.8-2.4) Albumin 1.4g/dL (3.4-5.0) Test 10/22/16 04:41 10/22/16 06:36 Glucose (Fingerstick) 124mg/dL (70-99) 89mg/dL (70-99) Microbiology Micro Microbiology 10/20/16 Blood Culture - Preliminary, Resulted 10/20/16 Blood Culture Result 1 (HERBERT) - Preliminary, Resulted Physical Exam HEENT: Neck Supple W Full Motion Chest: Symmetric LUNGS: Other (basilar crackles) Heart: S1S2, irregularly irregular (AFIB) Abdomen: Soft N/T Extremities: No Calf Tenderness, Other (LLE with swelling and erythema- s/p I & D with VAC to left foot) Neurology: alert, oriented, follow commands Assessment Assessment 1. PAFIB with RVR: new onset. Remains paroxysmal but controlled 2. Sepsis/bacteremia with likely L foot osteomyelitis: S/P I & D to left foot today 3. Hypotension: BP at low end but stable 4. RHETT 5. DM2 with DPN: uncontrolled, A1C 9. Noted hypoglycemia today at 37. 6. Coagulopathy: INR 1.4. Malnutrition/lack Vit K? 7. Protein malnutrition: alb 1.4 8. Deconditioning/fatigue 9. Hx of orthostasis 10. Suspect poor compliance 11. Known RLE PAD: no complains of claudications Recommendations 1. ID/nephrology on board 2. DC cardizem drip and place on PO IR. Metoprolol IV PRN for refractory RVR 3. Will consider for rhythm maintenance such as flecainide(renal dosing) once OAC/NOAC could get started. 4. Will need ortho clearance for any OAC/NOAC, otherwise will continue with ASA for stroke prevention 5. Current TTE with preserved EF, normal wall motion and systolic function, no significant changes by comparison, continue with secondary prevention 6. If conversion to SR is noted then will plan for event monitor and note AFIB burden 7. Will also consider for stress test as an outpt for further risk stratification given his significant cardiac risk factors 8. Replace Mg. Albumin infusion ROSAS SCHNEIDER APRN Oct 22, 2016 11:04
[2016-10-22] MEDS: DILTIAZEM HCL 30 MG TABLET PO SCH ×2 (11:21→18:00)
--- NOTE | 2016-10-22 12:51 | PDOC ---
PROGRESS NOTES Chief Complaint Chief Complaint 1. Left foot osteomyelitis 2. DM 2 uncontrolled, now w/ marked hypoglycemia from home meds 3. HTN 4 Atrial fib 5. Sepsis infectious 6. RHETT, vasomotor, cont IV fluids 7 Acute diarrhea 8, Mild thrombocytopenia 9 met acidosis 10. Mod.severe malnutrition, POA History of Present Illness History of Present Illness hypoglygemia overnight, no insulin > 24 hours, about 24 hours from last glipizide dose, likely lingering effect, started on D10 at 70mls/hr overnight, continue until FSBS normalizes conrt broad IV abx surg done this AM Vitals Vitals Vital Signs Date Time Temp Pulse Resp B/P Pulse Ox O2 Delivery O2 Flow Rate FiO2 10/22/16 11:21 87 101/51 10/22/16 10:30 18 100 Nasal Cannula 2.0 10/22/16 09:11 97.6 97.6 Physical Exam General: Alert, Oriented X3, Cooperative, No acute distress Heart: Normal S1, Normal S2, Other (2/6 systolic murmur to LLS border; AFIB) Lungs: Clear, Wheezing Abdomen: Soft, No tenderness Extremities: No clubbing, No cyanosis Skin: Other (left foot wound) Labs LABS Laboratory Tests Test 10/21/16 16:48 10/21/16 17:51 10/21/16 19:22 10/21/16 23:28 Urine Collection Type Unknown Urine Color Yellow Urine Clarity Cloudy Urine pH 5.5 Urine Specific [facility] [place] 1.015 Urine Protein 84.8mg/dL (Not Estab.) Urine Glucose (UA) Negativemg/dL (NEG) Urine Ketones (Stick) Negativemg/dL (NEG) Urine Blood Large (NEG) Urine Nitrite Negative (NEG) Urine Bilirubin Negative (NEG) Urine Urobilinogen Dipstick 1.0mg/dL (0.2 mg/dL) Urine Leukocyte Esterase Moderate (NEG) Urine RBC 20-40/HPF (0-2) Urine WBC >40/HPF (0-4) Urine Squamous Epithelial Cells Few/LPF Urine Amorphous Sediment Present/HPF Urine Bacteria 0/HPF (0-FEW) Urine Hyaline Casts Few/HPF Urine Granular Casts Many/HPF Urine Waxy Casts Few/HPF Urine Random Sodium <20mmol/L (Not Estab.) Urine Creatinine 90.4mg/dL (Not Estab.) Urine Protein/Creatinine Ratio 938mg/g creat (0-200) Clostridium difficile Toxin (PCR) Negative (Negative) Glucose (Fingerstick) 41mg/dL (70-99) 80mg/dL (70-99) 40mg/dL (70-99) Test 10/21/16 23:44 10/22/16 03:05 10/22/16 04:16 10/22/16 04:41 Glucose (Fingerstick) 148mg/dL (70-99) 37mg/dL (70-99) 124mg/dL (70-99) Hemoglobin 10.8g/dL (13.0-17.5) Sodium Level 133mmol/L (136-145) Potassium Level 3.5mmol/L (3.5-5.1) Chloride Level 102mmol/L (98-107) Carbon Dioxide Level 21mmol/L (21-32) Anion Gap 10 (6-14) Blood Urea Nitrogen 55mg/dL (8-26) Creatinine 3.3mg/dL (0.7-1.3) Estimated GFR (Cockcroft-Gault) 18.6 Glucose Level 47mg/dL (70-99) Calcium Level 7.3mg/dL (8.5-10.1) Phosphorus Level 3.1mg/dL (2.6-4.7) Magnesium Level 1.7mg/dL (1.8-2.4) Albumin 1.4g/dL (3.4-5.0) Test 10/22/16 06:36 Glucose (Fingerstick) 89mg/dL (70-99) Assessment and Plan Assessmemt and Plan cont current wound vac likely post-op Problems Medical Problems: (1) Acute renal failure Status: Acute (2) Atrial fibrillation with RVR Status: Acute (3) Lactic acidosis Status: Acute (4) Severe sepsis Status: Acute (5) Uncontrolled diabetes mellitus Status: Acute Problems: Comment Review of Relevant I have reviewed the following items jovan (where applicable) has been applied. Labs Laboratory Tests Test 10/20/16 13:17 10/20/16 13:25 10/20/16 14:50 10/20/16 17:10 Glucose (Fingerstick) 351mg/dL (70-99) White Blood Count 4.3x10^3/uL (4.0-11.0) Red Blood Count 4.98x10^6/uL (4.30-5.70) Hemoglobin 14.3g/dL (13.0-17.5) Hematocrit 42.9% (39.0-53.0) Mean Corpuscular Volume 86fL (79-100) Mean Corpuscular Hemoglobin 29pg (25-35) Mean Corpuscular Hemoglobin Concent 33g/dL (31-37) Red Cell Distribution Width 14.1% (11.5-14.5) Platelet Count 114x10^3/uL (140-400) Neutrophils (%) (Auto) 96% (31-73) Lymphocytes (%) (Auto) 2% (24-48) Monocytes (%) (Auto) 1% (0-9) Eosinophils (%) (Auto) 0% (0-3) Basophils (%) (Auto) 1% (0-3) Neutrophils # (Auto) 4.1x10^3uL (1.8-7.7) Lymphocytes # (Auto) 0.1x10^3/uL (1.0-4.8) Monocytes # (Auto) 0.0x10^3/uL (0.0-1.1) Eosinophils # (Auto) 0.0x10^3/uL (0.0-0.7) Basophils # (Auto) 0.0x10^3/uL (0.0-0.2) Segmented Neutrophils % 47% (35-66) Band Neutrophils % 47% (0-9) Lymphocytes % 3% (24-48) Basophils % 1% (0-3) Metamyelocytes % 2% (0-0) Toxic Granulation Slight Toxic Vacuolation Mod Platelet Estimate Decreased (ADEQUATE) Giant Platelets Occ Erythrocyte Sedimentation Rate 99 (0-15) Prothrombin Time 18.1SEC (11.7-14.0) Prothromb Time International Ratio 1.6 (0.8-1.1) Sodium Level 135mmol/L (136-145) Potassium Level 4.4mmol/L (3.5-5.1) Chloride Level 96mmol/L (98-107) Carbon Dioxide Level 24mmol/L (21-32) Anion Gap 15 (6-14) Blood Urea Nitrogen 40mg/dL (8-26) Creatinine 3.0mg/dL (0.7-1.3) Estimated GFR (Cockcroft-Gault) 20.7 Glucose Level 331mg/dL (70-99) Hemoglobin A1c 9.3% (4.8-5.6) Lactic Acid Level 5.9mmol/L (0.4-2.0) 3.7mmol/L (0.4-2.0) 2.5mmol/L (0.4-2.0) Calcium Level 8.9mg/dL (8.5-10.1) Magnesium Level 1.9mg/dL (1.8-2.4) Total Bilirubin 1.8mg/dL (0.2-1.0) Direct Bilirubin 0.8mg/dL (0.0-0.2) Aspartate Amino Transf (AST/SGOT) 23U/L (15-37) Alanine Aminotransferase (ALT/SGPT) 10U/L (16-63) Alkaline Phosphatase 106U/L (46-116) Creatine Kinase 427U/L (39-308) Creatine Kinase MB (Mass) 3.8ng/mL (0.0-3.6) Creatine Kinase MB Relative Index 0.9% (0-4) Troponin I Quantitative 0.026ng/mL (0.000-0.055) LJ-Duo-O-Type Natriuretic Peptide 49072de/mL (0-124) Total Protein 7.1g/dL (6.4-8.2) Albumin 1.9g/dL (3.4-5.0) Thyroid Stimulating Hormone (TSH) 3.708uIU/mL (0.358-3.74) Test 10/20/16 17:31 10/20/16 20:47 10/21/16 03:10 10/21/16 04:06 Glucose (Fingerstick) 327mg/dL (70-99) 285mg/dL (70-99) 62mg/dL (70-99) White Blood Count 8.1x10^3/uL (4.0-11.0) Red Blood Count 4.56x10^6/uL (4.30-5.70) Hemoglobin 12.9g/dL (13.0-17.5) Hematocrit 38.5% (39.0-53.0) Mean Corpuscular Volume 85fL (79-100) Mean Corpuscular Hemoglobin 28pg (25-35) Mean Corpuscular Hemoglobin Concent 34g/dL (31-37) Red Cell Distribution Width 14.3% (11.5-14.5) Platelet Count 90x10^3/uL (140-400) Neutrophils (%) (Auto) 91% (31-73) Lymphocytes (%) (Auto) 4% (24-48) Monocytes (%) (Auto) 5% (0-9) Eosinophils (%) (Auto) 0% (0-3) Basophils (%) (Auto) 0% (0-3) Neutrophils # (Auto) 7.4x10^3uL (1.8-7.7) Lymphocytes # (Auto) 0.3x10^3/uL (1.0-4.8) Monocytes # (Auto) 0.4x10^3/uL (0.0-1.1) Eosinophils # (Auto) 0.0x10^3/uL (0.0-0.7) Basophils # (Auto) 0.0x10^3/uL (0.0-0.2) Sodium Level 133mmol/L (136-145) Potassium Level 4.2mmol/L (3.5-5.1) Chloride Level 99mmol/L (98-107) Carbon Dioxide Level 23mmol/L (21-32) Anion Gap 11 (6-14) Blood Urea Nitrogen 50mg/dL (8-26) Creatinine 3.1mg/dL (0.7-1.3) Estimated GFR (Cockcroft-Gault) 20.0 Glucose Level 72mg/dL (70-99) Calcium Level 8.2mg/dL (8.5-10.1) Triglycerides Level 114mg/dL (0-150) Cholesterol Level 139mg/dL (0-200) LDL Cholesterol, Calculated 100mg/dL (0-100) VLDL Cholesterol, Calculated 23mg/dL (0-40) HDL Cholesterol 16mg/dL (40-60) Cholesterol/HDL Ratio 8.7 Thyroid Stimulating Hormone (TSH) 1.712uIU/mL (0.358-3.74) Test 10/21/16 06:00 10/21/16 08:28 10/21/16 09:22 10/21/16 09:40 Nasal Screen MRSA (PCR) Negative (Negative) Glucose (Fingerstick) 42mg/dL (70-99) 85mg/dL (70-99) Prothrombin Time 16.6SEC (11.7-14.0) Prothromb Time International Ratio 1.4 (0.8-1.1) Test 10/21/16 10:00 10/21/16 12:37 10/21/16 16:48 10/21/16 17:51 Lactic Acid Level 1.9mmol/L (0.4-2.0) Creatine Kinase 391U/L (39-308) Glucose (Fingerstick) 89mg/dL (70-99) 41mg/dL (70-99) Urine Collection Type Unknown Urine Color Yellow Urine Clarity Cloudy Urine pH 5.5 Urine Specific [facility] [place] 1.015 Urine Protein 84.8mg/dL (Not Estab.) Urine Glucose (UA) Negativemg/dL (NEG) Urine Ketones (Stick) Negativemg/dL (NEG) Urine Blood Large (NEG) Urine Nitrite Negative (NEG) Urine Bilirubin Negative (NEG) Urine Urobilinogen Dipstick 1.0mg/dL (0.2 mg/dL) Urine Leukocyte Esterase Moderate (NEG) Urine RBC 20-40/HPF (0-2) Urine WBC >40/HPF (0-4) Urine Squamous Epithelial Cells Few/LPF Urine Amorphous Sediment Present/HPF Urine Bacteria 0/HPF (0-FEW) Urine Hyaline Casts Few/HPF Urine Granular Casts Many/HPF Urine Waxy Casts Few/HPF Urine Random Sodium <20mmol/L (Not Estab.) Urine Creatinine 90.4mg/dL (Not Estab.) Urine Protein/Creatinine Ratio 938mg/g creat (0-200) Clostridium difficile Toxin (PCR) Negative (Negative) Test 10/21/16 19:22 10/21/16 23:28 10/21/16 23:44 10/22/16 03:05 Glucose (Fingerstick) 80mg/dL (70-99) 40mg/dL (70-99) 148mg/dL (70-99) Hemoglobin 10.8g/dL (13.0-17.5) Sodium Level 133mmol/L (136-145) Potassium Level 3.5mmol/L (3.5-5.1) Chloride Level 102mmol/L (98-107) Carbon Dioxide Level 21mmol/L (21-32) Anion Gap 10 (6-14) Blood Urea Nitrogen 55mg/dL (8-26) Creatinine 3.3mg/dL (0.7-1.3) Estimated GFR (Cockcroft-Gault) 18.6 Glucose Level 47mg/dL (70-99) Calcium Level 7.3mg/dL (8.5-10.1) Phosphorus Level 3.1mg/dL (2.6-4.7) Magnesium Level 1.7mg/dL (1.8-2.4) Albumin 1.4g/dL (3.4-5.0) Test 10/22/16 04:16 10/22/16 04:41 10/22/16 06:36 Glucose (Fingerstick) 37mg/dL (70-99) 124mg/dL (70-99) 89mg/dL (70-99) Laboratory Tests Test 10/21/16 16:48 10/21/16 17:51 10/21/16 19:22 10/21/16 23:28 Urine Collection Type Unknown Urine Color Yellow Urine Clarity Cloudy Urine pH 5.5 Urine Specific [facility] 1.015 Urine Protein 84.8mg/dL (Not Estab.) Urine Glucose (UA) Negativemg/dL (NEG) Urine Ketones (Stick) Negativemg/dL (NEG) Urine Blood Large (NEG) Urine Nitrite Negative (NEG) Urine Bilirubin Negative (NEG) Urine Urobilinogen Dipstick 1.0mg/dL (0.2 mg/dL) Urine Leukocyte Esterase Moderate (NEG) Urine RBC 20-40/HPF (0-2) Urine WBC >40/HPF (0-4) Urine Squamous Epithelial Cells Few/LPF Urine Amorphous Sediment Present/HPF Urine Bacteria 0/HPF (0-FEW) Urine Hyaline Casts Few/HPF Urine Granular Casts Many/HPF Urine Waxy Casts Few/HPF Urine Random Sodium <20mmol/L (Not Estab.) Urine Creatinine 90.4mg/dL (Not Estab.) Urine Protein/Creatinine Ratio 938mg/g creat (0-200) Clostridium difficile Toxin (PCR) Negative (Negative) Glucose (Fingerstick) 41mg/dL (70-99) 80mg/dL (70-99) 40mg/dL (70-99) Test 10/21/16 23:44 10/22/16 03:05 10/22/16 04:16 10/22/16 04:41 Glucose (Fingerstick) 148mg/dL (70-99) 37mg/dL (70-99) 124mg/dL (70-99) Hemoglobin 10.8g/dL (13.0-17.5) Sodium Level 133mmol/L (136-145) Potassium Level 3.5mmol/L (3.5-5.1) Chloride Level 102mmol/L (98-107) Carbon Dioxide Level 21mmol/L (21-32) Anion Gap 10 (6-14) Blood Urea Nitrogen 55mg/dL (8-26) Creatinine 3.3mg/dL (0.7-1.3) Estimated GFR (Cockcroft-Gault) 18.6 Glucose Level 47mg/dL (70-99) Calcium Level 7.3mg/dL (8.5-10.1) Phosphorus Level 3.1mg/dL (2.6-4.7) Magnesium Level 1.7mg/dL (1.8-2.4) Albumin 1.4g/dL (3.4-5.0) Test 10/22/16 06:36 Glucose (Fingerstick) 89mg/dL (70-99) Microbiology 10/20/16 Blood Culture - Preliminary, Resulted 10/20/16 Blood Culture Result 1 (HERBERT) - Preliminary, Resulted 10/22/16 Gram Stain - Final, Complete Medications Current Medications Diltiazem HCl 20 mg 20 mg 1X ONCE IVP Last administered on 10/20/16 13:35; Start 10/20/16 at 13:30; Stop 10/20/16 at 13:31; Status DC Diltiazem HCl 125 mg/Dextrose 125 ml @ 10 mls/hr 1X ONCE IV Last administered on 10/20/16 13:49; Start 10/20/16 at 13:30; Stop 10/20/16 at 19:37; Status DC Sodium Chloride (Iv Sodium Chloride 0.9% 1000ml Bag) 1,000 ml @ 100 mls/hr Q10H IV Last administered on 10/20/16 13:45; Start 10/20/16 at 13:30; Stop at 23:29; Status DC Diltiazem HCl (Cardizem) 20 mg 1X ONCE IVP Last administered on 10/20/16 14:16 ; Start 10/20/16 at 14:00; Stop 10/20/16 at 14:01; Status DC Vancomycin HCl (Vanco Per Pharmacy) 1 each PRN DAILY PRN MC SEE COMMENTS Last administered on 10/20/16 16:49; Start 10/20/16 at 14:45; Stop 10/21/16 at 07:42; Status DC Piperacillin Sod/ Tazobactam Sod 1 each 1 each PRN DAILY PRN MC SEE COMMENTS; Start 10/20/16 at 14:45; Stop 10/21/16 at 07:49; Status DC Vancomycin HCl 2 gm/Sodium Chloride 500 ml @ 250 mls/hr 1X ONCE IV Last administered on 10/20/16 15:45; Start 10/20/16 at 15:00; Stop 10/20/16 at 16:59; Status DC Piperacillin Sod/ Tazobactam Sod/ Sodium Chloride (Zosyn/Iv Sodium Chloride 0.9 % 50ml) 50 ml @ 100 mls/hr 1X ONCE IV Last administered on 10/20/16 15:04; Start 10/20/16 at 15:00; Stop 10/20/16 at 15:29; Status DC Ondansetron HCl (Zofran) 4 mg PRN Q8HRS PRN IV NAUSEA/VOMITING; Start 10/20/16 at 15:00; Stop 10/20/16 at 15:16; Status DC Fentanyl Citrate 50 mcg 50 mcg PRN Q2HR PRN IV PAIN; Start 10/20/16 at 15:00; Stop 10/21/16 at 14:59; Status DC Sodium Chloride (Iv Sodium Chloride 0.9% 1000ml Bag) 1,000 ml @ 100 mls/hr Q10H IV Last administered on 10/21/16 11:30; Start 10/20/16 at 15:30; Stop at 15:29; Status DC Acetaminophen (Tylenol) 650 mg PRN Q4HRS PRN PO FEVER; Start 10/20/16 at 15:00; Stop 10/21/16 at 14:59; Status DC Ondansetron HCl (Zofran) 4 mg PRN Q6HRS PRN IV NAUSEA/VOMITING; Start 10/20/16 at 15:12 Insulin Aspart (Novolog) 0-9 UNITS TIDWMEALS SQ Last administered on 10/20/16 18:23; Start 10/20/16 at 17:00 Dextrose 12.5 gm PRN Q15MIN PRN IV SEE COMMENTS Last administered on 10/22/16 04:19; Start 10/20/16 at 15:15 Docusate Sodium (Colace) 100 mg BID PO Last administered on 10/21/16 09:20; Start 10/20/16 at 21:00 Glimepiride (Amaryl) 2 mg BID PO ; Start 10/20/16 at 21:00; Status UNV Acetaminophen/ Hydrocodone Bitart (Lortab 7.5/325) 1 tab PRN Q3HRS PRN PO PAIN ; Start 10/20/16 at 15:15 Glimepiride (Amaryl) 4 mg BIDWMEALS PO Last administered on 10/20/16 17:32; Start 10/20/16 at 17:00; Stop 10/21/16 at 14:52; Status DC Insulin Detemir (Levemir) 30 units QHS SQ Last administered on 10/20/16 21:03; Start 10/20/16 at 21:00; Stop 10/21/16 at 14:52; Status DC Ondansetron HCl 4 mg 4 mg Q8HRS PO Last administered on 10/21/16 06:17; Start 10/20/16 at 22:00; Stop 10/21/16 at 17:24; Status DC Sodium Chloride 500 ml @ 500 mls/hr 1X ONCE IV ; Start 10/20/16 at 15:30; Stop 10/20/16 at 16:29; Status DC Piperacillin Sod/ Tazobactam Sod 2.25 gm/Sodium Chloride 50 ml @ 100 mls/hr Q6HRS IV Last administered on 10/22/16 06:15; Start 10/21/16 at 00:00 Vancomycin HCl/ Sodium Chloride (Iv Sodium Chloride 0.9% 250ml) 250 ml @ 167 mls/hr Q24H IV ; Start 10/21/16 at 16:00; Stop 10/21/16 at 16:00; Status DC Vancomycin HCl 1 each 1 each 1X ONCE MC ; Start 10/22/16 at 15:30; Stop 10/22/16 at 15:31; Status Cancel Dopamine HCl/ Dextrose 250 ml @ 13.183 mls/ hr CONT PRN IV SEE I/O RECORD Last administered on 10/20/16 20:38; Start 10/20/16 at 19:30 Digoxin (Lanoxin) 250 mcg 1X ONCE IV Last administered on 10/20/16 21:02; Start 10/20/16 at 20:45; Stop 10/20/16 at 20:46; Status DC Digoxin (Lanoxin) 250 mcg 1X ONCE IV Last administered on 10/21/16 01:48; Start 10/21/16 at 02:00; Stop 10/21/16 at 02:01; Status DC Digoxin 250 mcg 250 mcg 1X ONCE IV Last administered on 10/21/16 04:12; Start 10/21/16 at 04:15; Stop 10/21/16 at 04:16; Status DC Diltiazem HCl 125 mg/Dextrose 125 ml @ 0 mls/hr CONT PRN IV SEE I/O RECORD Last administered on 10/21/16 23:03; Start 10/21/16 at 04:15; Stop 10/22/16 at 09: 44; Status DC Linezolid 300 ml @ 300 mls/hr Q12HR IV Last administered on 10/22/16 11:20; Start 10/21/16 at 09:00 Magnesium Sulfate/ Dextrose 50 ml @ 25 mls/hr PRN DAILY PRN IV for Mag < 1.7 on am labs; Start 10/21/16 at 09:45 Albumin Human (Plasmanate) 500 ml @ 125 mls/hr 1X ONCE IV Last administered on 10/21/16 10:25; Start 10/21/16 at 09:45; Stop 10/21/16 at 13:44; Status DC Ondansetron HCl (Zofran) 4 mg PRN Q6HRS PRN IV Nausea; Start 10/21/16 at 10:00; Stop 10/22/16 at 09:59; Status DC Fentanyl Citrate (Fentanyl 2ml Vial) 25 mcg PRN Q5MIN PRN IV MILD PAIN; Start 10/21/16 at 10:00; Stop 10/22/16 at 09:59; Status DC Fentanyl Citrate (Fentanyl 2ml Vial) 50 mcg PRN Q5MIN PRN IV MODERATE PAIN; Start 10/21/16 at 10:00; Stop 10/22/16 at 09:59; Status DC Morphine Sulfate 1 mg 1 mg PRN Q10MIN PRN IV SEVERE PAIN; Start 10/21/16 at 10: 00; Stop 10/22/16 at 09:59; Status DC Lactated Ringer's (Iv Lactated Ringers) 1,000 ml @ 30 mls/hr Q24H IV ; Start at 09:50; Stop 10/21/16 at 21:49; Status DC Lidocaine HCl 2 ml 1X PRN PRN ID IV START; Start 10/21/16 at 10:00; Stop at 09:59; Status DC Hydromorphone HCl (Dilaudid) 0.5 mg PRN Q10MIN PRN IV SEV PAIN,Second choice; Start 10/21/16 at 10:00; Stop 10/22/16 at 09:59; Status DC Prochlorperazine Edisylate 5 mg 5 mg PACU PRN PRN IV NAUSEA; Start 10/21/16 at 10:00; Stop 10/22/16 at 09:59; Status DC Sodium Chloride (Iv Sodium Chloride 0.9% 500ml Bag) 500 ml @ 0 mls/hr PRN QID PRN IV UO< 30cc/hr over previous 6hrs; Start 10/21/16 at 10:15; Stop 10/21/16 at 17:27; Status DC Ondansetron HCl (Zofran) 4 mg PRN Q6HRS PRN IV Nausea; Start 10/21/16 at 11:30; Stop 10/22/16 at 11:29; Status DC Morphine Sulfate 1 mg 1 mg PRN Q10MIN PRN IV SEVERE PAIN; Start 10/21/16 at 11: 30; Stop 10/22/16 at 11:29; Status DC Lactated Ringer's (Iv Lactated Ringers) 1,000 ml @ 0 mls/hr Q0M IV ; Start 10/21 at 11:19; Stop 10/21/16 at 23:18; Status DC Lidocaine HCl 2 ml 1X PRN PRN ID IV START; Start 10/21/16 at 11:30; Stop at 11:29; Status DC Hydromorphone HCl (Dilaudid) 0.5 mg PRN Q10MIN PRN IV SEV PAIN,Second choice; Start 10/21/16 at 11:30; Stop 10/22/16 at 11:29; Status DC Prochlorperazine Edisylate (Compazine) 5 mg PACU PRN PRN IV NAUSEA; Start at 11:30; Stop 10/22/16 at 11:29; Status DC Atorvastatin Calcium (Lipitor) 20 mg QHS PO Last administered on 10/21/16 20:54 ; Start 10/21/16 at 21:00 Aspirin (Ecotrin) 81 mg DAILYWBKFT PO Last administered on 10/21/16 12:00; Start 10/21/16 at 12:00 Ondansetron HCl (Zofran) 4 mg PRN Q6HRS PRN IV Nausea; Start 10/22/16 at 07:00; Stop 10/23/16 at 06:59 Morphine Sulfate 1 mg 1 mg PRN Q10MIN PRN IV SEVERE PAIN; Start 10/22/16 at 07: 00; Stop 10/23/16 at 06:59 Lactated Ringer's (Iv Lactated Ringers) 1,000 ml @ 30 mls/hr Q24H IV ; Start at 07:00; Stop 10/22/16 at 18:59 Lidocaine HCl 2 ml 1X PRN PRN ID IV START; Start 10/22/16 at 07:00; Stop at 06:59 Hydromorphone HCl (Dilaudid) 0.5 mg PRN Q10MIN PRN IV SEVERE PAIN, Second choice; Start 10/22/16 at 07:00; Stop 10/23/16 at 06:59 Prochlorperazine Edisylate (Compazine) 5 mg PACU PRN PRN IV NAUSEA; Start at 07:00; Stop 10/23/16 at 06:59 Aspirin (Ecotrin) 81 mg DAILYWBKFT PO ; Start 10/22/16 at 08:00; Status UNV Insulin Detemir (Levemir) 20 units QHS SQ ; Start 10/21/16 at 21:00; Stop at 08:29; Status DC Ondansetron HCl 4 mg 4 mg PRN Q8HRS PRN PO NAUSEA; Start 10/22/16 at 14:00 Sodium Chloride 1,000 ml @ 125 mls/hr Q8H IV Last administered on 10/22/16 04: 21; Start 10/21/16 at 18:00 Dextrose 1,000 ml @ 75 mls/hr [id number] IV Last administered on 10/22/16 04:54; Start 10/22/16 at 04:45 Bupivacaine HCl (Sensorcaine Mpf 0.5%) 30 ml STK-MED ONCE .ROUTE ; Start at 06:45; Stop 10/22/16 at 06:46; Status DC Lidocaine HCl 20 ml 20 ml STK-MED ONCE .ROUTE ; Start 10/22/16 at 06:46; Stop 10/22/16 at 06:47; Status DC Propofol (Diprivan) 20 ml @ As Directed STK-MED ONCE IV ; Start 10/22/16 at 08:02 ; Stop 10/22/16 at 08:03; Status DC Lidocaine HCl 100 mg STK-MED ONCE .ROUTE ; Start 10/22/16 at 08:02; Stop 10/22/16 at 08:03; Status DC Ondansetron HCl (Zofran) 4 mg STK-MED ONCE .ROUTE ; Start 10/22/16 at 08:31; Stop 10/22/16 at 08:32; Status DC Phenylephrine HCl 1 mg STK-MED ONCE IV ; Start 10/22/16 at 08:31; Stop 10/22/16 at 08:32; Status DC Dexamethasone Sodium Phosphate (Decadron) 20 mg STK-MED ONCE .ROUTE ; Start 10/22 at 08:48; Stop 10/22/16 at 08:49; Status DC Sevoflurane (Ultane) 30 ml STK-MED ONCE IH ; Start 10/22/16 at 08:48; Stop at 08:49; Status DC Diltiazem HCl (Cardizem) 30 mg Q6HRS PO Last administered on 10/22/16 11:21; Start 10/22/16 at 10:00 Metoprolol Tartrate 5 mg 5 mg PRN Q6HRS PRN IVP ELEVATED BP, SEE COMMENTS; Start 10/22/16 at 09:45 Albumin Human (Plasmanate) 500 ml @ 125 mls/hr 1X ONCE IV Last administered on 10/22/16t 11:20; Start 10/22/16 at 09:45; Stop 10/22/16 at 13:44 Active Scripts Active Reported Zofran Odt (Ondansetron) 8 Mg Tab.rapdis 1 Tab PO Q8HRS Colace (Docusate Sodium) 100 Mg Capsule 1 Cap PO BID Hydrocodone-Apap 7.5-325 (Hydrocodone Bit/Acetaminophen) 1 Each Tablet 1 Tab PO Q3HRS PRN Glimepiride 4 Mg Tablet 1 Tab PO BID Glimepiride 2 Mg Tablet 1 Tab PO BID Levemir (Insulin Detemir) 100 Unit/1 Ml Vial 30 Unit SQ HS Vitals/I & O Vital Sign - Last 24 Hours 10/21/16 10/21/16 10/21/16 10/21/16 13:00 14:00 15:00 16:00 Temp 98.8 98.8 Pulse 86 86 92 92 Resp 22 22 22 22 B/P 86/46 97/47 94/50 98/53 Pulse Ox 97 96 98 98 O2 Delivery Room Air Room Air Room Air Room Air 10/21/16 10/21/16 10/21/16 10/21/16 16:00 17:00 18:00 19:00 Pulse 94 99 92 Resp 20 20 19 B/P 102/50 97/48 87/43 Pulse Ox 98 98 97 O2 Delivery Room Air Room Air Room Air Room Air 10/21/16 10/21/16 10/21/16 10/21/16 20:00 20:00 21:00 22:00 Temp 97.9 97.9 Pulse 91 110 86 Resp 19 20 22 B/P 93/49 105/48 107/53 Pulse Ox 97 97 97 O2 Delivery Room Air Room Air Room Air Room Air 10/21/16 10/22/16 10/22/16 10/22/16 23:00 00:00 00:00 01:00 Temp 98.1 98.1 Pulse 88 89 88 Resp 24 22 24 B/P 108/53 93/49 108/53 Pulse Ox 97 97 94 O2 Delivery Room Air Room Air Room Air Room Air 10/22/16 10/22/16 10/22/16 10/22/16 02:00 03:00 04:00 04:00 Temp 98.1 98.1 Pulse 88 90 108 Resp 22 22 22 B/P 87/32 98/46 103/43 Pulse Ox 91 90 88 O2 Delivery Room Air Room Air Room Air Room Air 10/22/16 10/22/16 10/22/16 10/22/16 05:00 06:00 07:00 08:00 Temp 98.7 98.7 Pulse 91 97 99 Resp 19 20 20 B/P 99/47 113/54 112/48 Pulse Ox 97 98 98 O2 Delivery Nasal Cannula Nasal Cannula Nasal Cannula Room Air O2 Flow Rate 2.0 2.0 2.0 10/22/16 10/22/16 10/22/16 10/22/16 09:11 09:30 09:45 10:00 Temp 97.6 97.6 Pulse 86 84 90 86 Resp 18 16 16 16 B/P 95/50 96/52 103/47 100/52 Pulse Ox 98 98 98 99 O2 Delivery Nasal Cannula Nasal Cannula Nasal Cannula Nasal Cannula O2 Flow Rate 2.0 2.0 2.0 2.0 10/22/16 10/22/16 10:30 11:21 Pulse 92 87 Resp 18 B/P 105/51 101/51 Pulse Ox 100 O2 Delivery Nasal Cannula O2 Flow Rate 2.0 Intake and Output 10/21/16 10/21/16 10/22/16 15:00 23:00 07:00 Intake Total 1330 ml 1790 ml 4628 ml Output Total 240 ml 200 ml 125 ml Balance 1090 ml 1590 ml 4503 ml BEKA CARRION MD Oct 22, 2016 12:51
[2016-10-22] MEDS ORDERED: ONDANSETRON ODT 4 MG TAB.RAPDIS PO PRN (14:00)
[2016-10-22] MEDS ORDERED: ANTI-COAG MONITOR BY PHARMACY. MC PRN (15:15)
[2016-10-22] MEDS: LOPERAMIDE 2 MG CAPSULE PO PRN (20:16)
[2016-10-22] MEDS: ATORVASTATIN CALCIUM 20 MG TABLET PO SCH (20:16)
[2016-10-22] MEDS: HEPARIN PF for SUB-Q USE 5,000 UNIT/0.5 ML VIAL. SQ SCH (20:49)
[2016-10-22] MEDS ORDERED: INSULIN DETEMIR 300 UNITS/3 ML INSULN.PEN. SQ ONE (23:45)
[2016-10-23] VITALS (13 sets, daily range): BP systolic 98–143; BP diastolic 42–70
[2016-10-23] MEDS ORDERED: INSULIN REGULAR 100 UNIT/ML 10ML VIAL. IV ONE
[2016-10-23] MEDS: DILTIAZEM HCL 30 MG TABLET PO SCH ×4 (00:08→17:35)
[2016-10-23] MEDS: HYDROCODONE/APAP 7.5/325MG TABLET. PO PRN (00:19)
--- NOTE | 2016-10-23 05:15 | CONS ---
DATE OF CONSULTATION: 10/21/2016 REFERRING PROVIDER: Dr. Simmons. CONSULTING PROVIDER: Janes Wallace M.D. REASON FOR CONSULTATION: Left plantar foot wound. CHIEF COMPLAINT: Left foot pain. HISTORY OF PRESENT ILLNESS: The patient is a very pleasant 71-year-old gentleman who I previously performed a transmetatarsal amputation on months ago, which he subsequently healed. While showing for followup, he developed a new plantar lateral foot wound and I sent him down to wound care. He unfortunately had worsening of this. He tells me he has had a lot of difficulty staying off it. He presented to our Emergency Department with generalized weakness and difficulty with ambulation. He is also complaining of some shortness of breath. ALLERGIES: TETANUS. PAST MEDICAL HISTORY: 1. Type 2 diabetes. 2. Hypertension. PAST SURGICAL HISTORY: 1. ____ He had a transmetatarsal amputation. 2. I and D of the left plantar foot wound with myself. 3. Right transmetatarsal amputation. SOCIAL HISTORY: No alcohol or tobacco. REVIEW OF SYSTEMS: Twelve-point review of systems negative except as per HPI. MEDICATIONS: Reviewed, please see MRAD. PHYSICAL EXAMINATION: GENERAL: The patient is alert and oriented, in no acute distress. Mood and affect are appropriate. HEENT: Head normocephalic, atraumatic. Extraocular muscles are intact. CARDIOVASCULAR: Regular rate and rhythm. LUNGS: Respirations are unlabored. ABDOMEN: Soft, nondistended. EXTREMITIES: Examination of his left lower extremity reveals an approximately 10 x 10 x 2 cm deep wound over the plantar lateral left foot down to bone. Necrotic debris and some purulent drainage is present. He does have edema to the mid tibial region on the left lower extremity. No other wounds. IMAGING: His foot x-ray and the report were reviewed. He does have some bony changes consistent with possible osteomyelitis of his left foot. IMPRESSION: 1. Left chronic diabetic foot wound. 2. Left foot osteomyelitis. 3. Atrial fibrillation with rapid ventricular rate. PLAN: I did discuss with this gentleman now that he is more stable that we would plan on proceeding to the operative suite. I did review the [facility] wound notes and his plantar measurements were not necessarily consistent with wound healing; however, he did heal the transmetatarsal amputation a couple of months ago and he really desires to avoid a below-knee amputation. I did tell him that it is not necessarily unreasonable to I and D and wound VAC this new wound to see if it is able to heal. If there are no signs of healing in the ensuing weeks, then we would unfortunately probably have to proceed with a below-knee amputation on the left side. He is agreeable with this plan. JANES WALLACE MD DR: MAXIMINO/brenda JOB#: [id number] / [id number] MILO
[2016-10-23] MEDS: PIPERACILLIN/TAZOBACTAM 2.25 GM in IV NORMAL SALINE 50ML 50 ML IV SCH ×3 (05:30→17:31)
[2016-10-23] MEDS: IV NORMAL SALINE 1000ML BAG 1,000 ML IV SCH (05:30)
[2016-10-23 05:39] LABS: BASO % 0 % (0-3); EOS % 0 % (0-3); HEMATOCRIT 31.8 % (39.0-53.0); HEMOGLOBIN 10.5 g/dL (13.0-17.5); LYMPH # 0.3 x10^3/uL (1.0-4.8); LYMPH % 5 % (24-48); MEAN CORPUSCULAR HEMOGLOBIN 28 pg (25-35); MEAN CORPUSCULAR HGB CONC 33 g/dL (31-37); MEAN CORPUSCULAR VOLUME 86 fL (79-100); MONO % 7 % (0-9); NEUT % 88 % (31-73); PLATELET COUNT 84 x10^3/uL (140-400); RED BLOOD COUNT 3.71 x10^6/uL (4.30-5.70); RED CELL DISTRIBUTION WIDTH 14.4 % (11.5-14.5); WHITE BLOOD COUNT 7.1 x10^3/uL (4.0-11.0)
[2016-10-23 06:01] LABS: ALBUMIN 1.6 g/dL (3.4-5.0); CALCIUM 7.5 mg/dL (8.5-10.1); CREATININE 3.7 mg/dL (0.7-1.3); GFR 16.3; PHOSPHORUS 4.2 mg/dL (2.6-4.7); POTASSIUM 3.9 mmol/L (3.5-5.1)
--- NOTE | 2016-10-23 07:17 | PDOC ---
SUBJECTIVE ROS RHETT Feels muchbetter but still having diarrhea CVS: no Orthopnea, no CP RESP: no SOB, no LOZANO GI: no Nausea, no Vomiting : no Dysuria, no Urgency OBJECTIVE Vital Signs Vital Signs Date Time Temp Pulse Resp B/P Pulse Ox O2 Delivery O2 Flow Rate FiO2 10/23/16 06:00 75 12 125/62 97 Room Air 10/23/16 04:00 96.7 96.7 10/23/16 00:19 2.0 I & 0 Intake and Output 10/23/16 07:00 Intake Total 7289 ml Output Total 875 ml Balance 6414 ml Intake Oral 1280 ml IV Total 6009 ml Output Urine Total 850 ml Drainage Total 25 ml # Bowel Movements 8 PHYSICAL EXAM Physical Exam General Appearance: Awake Alert Oriented x 3 In no Distress Eyes: VIsion Unchanged Conjunctiva Normal EN: No EN Drainage Mucous Memb. moist; Neck: no JVD no JVP Supple no Thyromegaly CVS: S1 S2 no Murmur No Gallop No Rub +1 Edema on the left Resp: no Rales no Rhonchi no Acc. Muscle use GI: BS +ve NO Bruit Non Tender Non Distended : no CVA tenderness; no Suprapubic Tenderness Assessment & Plan ARF: suspect VMN. Cannot r/o ATN though. doubt Rhabdo with marginal CK. Creat is mildly worse but UO is little better. ct IVF. Current FLuid and E-lyte status does not necessitate emergent need for Dialysis. Will re-evaluate for Dialysis in am if solute clearance does not improve. HD Cath to be placed Underlying CKD III cannot be ruled out matthew in setting of longstanding poorly controlled DM ? hypoVolemia - symptomatically better with IVF as ordered; diarrhea is little better NAG Metabolic Acidemia - suspect due to diarrhea so IVF with Bicarb Diarrhea - may need GI to see, selamhck Mag Oliguria - resolved with IVF and vol repletion HypoTN: resolved w ith IVF and vol repletion Poorly controlled DM HypoALbuminemia - suspect due to Ch infection. min Proteinruia by ratio Proteinuria by ratio - reval once infection is better. Cannot R/o infection related Gn OR underlying DM Nephropahty, ARB if needed Discussed Plan of Care and prognosis etc. at length with pt COMMENT/RELEVANT DATA Meds Current Medications Medications (Trade) Dose Ordered Sig/Salena Start Time Stop Time Status Last Admin Dose Admin Acetaminophen (Tylenol) 650 mg PRN Q4HRS PRN 10/20/16 15:00 10/21/16 14:59 DC Acetaminophen/ Hydrocodone Bitart (Lortab 7.5/325) 1 tab PRN Q3HRS PRN 10/20/16 15:15 10/23/16 00:19 1 TAB Albumin Human (Plasmanate) 500 ml @ 125 mls/hr 1X ONCE 10/22/16 09:45 10/22/16 13:44 DC 10/22/16 11:20 125 MLS/HR Aspirin (Ecotrin) 81 mg [id number] 10/22/16 08:00 UNV Atorvastatin Calcium (Lipitor) 20 mg QHS 10/21/16 21:00 10/22/16 20:16 20 MG Bupivacaine HCl (Sensorcaine Mpf 0.5%) 30 ml STK-MED ONCE 10/22/16 06:45 10/22/16 06:46 DC Dexamethasone Sodium Phosphate (Decadron) 20 mg STK-MED ONCE 10/22/16 08:48 10/22/16 08:49 DC Dextrose 1,000 ml @ 75 mls/hr [id number] 10/22/16 04:45 10/22/16 15:05 DC 10/22/16 04:54 75 MLS/HR Digoxin (Lanoxin) 250 mcg 1X ONCE 10/21/16 02:00 10/21/16 02:01 DC 10/21/16 01:48 250 MCG Digoxin 250 mcg 250 mcg 1X ONCE 10/21/16 04:15 10/21/16 04:16 DC 10/21/16 04:12 250 MCG Diltiazem HCl (Cardizem) 30 mg Q6HRS 10/22/16 10:00 10/23/16 05:31 30 MG Diltiazem HCl 125 mg/Dextrose 125 ml @ 0 mls/hr CONT PRN 10/21/16 04:15 10/22/16 09:44 DC 10/21/16 23:03 5 MLS/HR Diltiazem HCl 20 mg 20 mg 1X ONCE 10/20/16 13:30 10/20/16 13:31 DC 10/20/16 13:35 20 MG Diltiazem HCl/ Dextrose (Cardizem) 125 ml @ 10 mls/hr 1X ONCE 10/20/16 13:30 10/20/16 19:37 DC 10/20/16 13:49 10 MLS/HR Docusate Sodium (Colace) 100 mg BID 10/20/16 21:00 10/21/16 09:20 100 MG Dopamine HCl/ Dextrose 250 ml @ 13.183 mls/ hr CONT PRN 10/20/16 19:30 10/20/16 20:38 7.91 MLS/HR Fentanyl Citrate (Fentanyl 2ml Vial) 50 mcg PRN Q5MIN PRN 10/21/16 10:00 10/22/16 09:59 DC Fentanyl Citrate 50 mcg 50 mcg PRN Q2HR PRN 10/20/16 15:00 10/21/16 14:59 DC Glimepiride (Amaryl) 4 mg BIDWMEALS 10/20/16 17:00 10/21/16 14:52 DC 10/20/16 17:32 4 MG Heparin Sodium (Porcine) 5,000 unit Q12HR 10/22/16 21:00 10/22/16 20:49 5,000 UNIT Hydromorphone HCl (Dilaudid) 0.5 mg PRN Q10MIN PRN 10/22/16 07:00 10/23/16 06:59 DC Info (Anti-Coagulation Monitoring By Pharmacy) 1 each PRN DAILY PRN 10/22/16 15:15 UNV Insulin Aspart (Novolog) 0-9 UNITS TIDWMEALS 10/20/16 17:00 10/22/16 17:59 5 UNITS Insulin Detemir (Levemir) 10 units 1X ONCE 10/22/16 23:45 10/22/16 23:46 DC 10/22/16 23:53 10 UNITS Insulin Detemir 30 units 30 units QHS 10/20/16 21:00 10/21/16 14:52 DC 10/20/16 21:03 30 UNITS Insulin Human Regular (Novolin R Vial) 10 unit 1X ONCE 10/23/16 00:00 10/23/16 00:01 DC 10/23/16 00:09 10 UNIT Lactated Ringer's (Iv Lactated Ringers) 1,000 ml @ 30 mls/hr Q24H 10/22/16 07:00 10/22/16 15:07 DC Lidocaine HCl 100 mg STK-MED ONCE 10/22/16 08:02 10/22/16 08:03 DC Lidocaine HCl 20 ml 20 ml STK-MED ONCE 10/22/16 06:46 10/22/16 06:47 DC Linezolid 300 ml @ 300 mls/hr Q12HR 10/21/16 09:00 10/22/16 20:18 300 MLS/HR Loperamide HCl (Imodium) 2 mg PRN Q15MIN PRN 10/22/16 20:00 10/22/16 20:16 2 MG Magnesium Sulfate/ Dextrose (Magnesium Sulfate PREMIX 2GM) 50 ml @ 25 mls/hr PRN DAILY PRN 10/21/16 09:45 10/22/16 15:15 25 MLS/HR Metoprolol Tartrate 5 mg 5 mg PRN Q6HRS PRN 10/22/16 09:45 Morphine Sulfate 1 mg 1 mg PRN Q10MIN PRN 10/22/16 07:00 10/23/16 06:59 DC Ondansetron HCl (Zofran) 4 mg STK-MED ONCE 10/22/16 08:31 10/22/16 08:32 DC Ondansetron HCl 4 mg 4 mg PRN Q8HRS PRN 10/22/16 14:00 Phenylephrine HCl 1 mg STK-MED ONCE 10/22/16 08:31 10/22/16 08:32 DC Piperacillin Sod/ Tazobactam Sod 2.25 gm/Sodium Chloride 50 ml @ 100 mls/hr Q6HRS 10/21/16 00:00 10/23/16 05:30 100 MLS/HR Piperacillin Sod/ Tazobactam Sod 1 each 1 each PRN DAILY PRN 10/20/16 14:45 10/21/16 07:49 DC Piperacillin Sod/ Tazobactam Sod/ Sodium Chloride (Zosyn/Iv Sodium Chloride 0.9% 50ml) 50 ml @ 100 mls/hr 1X ONCE 10/20/16 15:00 10/20/16 15:29 DC 10/20/16 15:04 100 MLS/HR Prochlorperazine Edisylate (Compazine) 5 mg PACU PRN PRN 10/22/16 07:00 10/23/16 06:59 DC Prochlorperazine Edisylate 5 mg 5 mg PACU PRN PRN 10/21/16 10:00 10/22/16 09:59 DC Propofol (Diprivan) 20 ml @ As Directed STK-MED ONCE 10/22/16 08:02 10/22/16 08:03 DC Sevoflurane (Ultane) 30 ml STK-MED ONCE 10/22/16 08:48 10/22/16 08:49 DC Sodium Chloride 1,000 ml @ 175 mls/hr Q5H43M 10/21/16 18:00 10/23/16 05:30 175 MLS/HR Sodium Chloride (Iv Sodium Chloride 0.9% 500ml Bag) 500 ml @ 0 mls/hr PRN QID PRN 10/21/16 10:15 10/21/16 17:27 DC Sodium Chloride (Iv Sodium Chloride 0.9% 1000ml Bag) 1,000 ml @ 100 mls/hr Q10H 10/20/16 15:30 10/21/16 15:29 DC 10/21/16 11:30 100 MLS/HR Vancomycin HCl (Vanco Per Pharmacy) 1 each PRN DAILY PRN 10/20/16 14:45 10/21/16 07:42 DC 10/20/16 16:49 1 EACH Vancomycin HCl 1 each 1 each 1X ONCE 10/22/16 15:30 10/22/16 15:31 Cancel Vancomycin HCl 2 gm/Sodium Chloride 500 ml @ 250 mls/hr 1X ONCE 10/20/16 15:00 10/20/16 16:59 DC 10/20/16 15:45 250 MLS/HR Vancomycin HCl/ Sodium Chloride (Iv Sodium Chloride 0.9% 250ml) 250 ml @ 167 mls/hr Q24H 10/21/16 16:00 10/21/16 16:00 DC Lab Laboratory Tests Test 10/22/16 13:23 10/22/16 15:15 10/22/16 17:56 10/22/16 23:20 Glucose (Fingerstick) 262mg/dL (70-99) 359mg/dL (70-99) 478mg/dL (70-99) Vancomycin Level Trough 11.9mcg/mL (10.0-20.0) Vancomycin Last Dose Date 10/21/16 Vancomycin Last Dose Time 1600 Test 10/23/16 02:29 10/23/16 05:23 Glucose (Fingerstick) 389mg/dL (70-99) White Blood Count 7.1x10^3/uL (4.0-11.0) Red Blood Count 3.71x10^6/uL (4.30-5.70) Hemoglobin 10.5g/dL (13.0-17.5) Hematocrit 31.8% (39.0-53.0) Mean Corpuscular Volume 86fL (79-100) Mean Corpuscular Hemoglobin 28pg (25-35) Mean Corpuscular Hemoglobin Concent 33g/dL (31-37) Red Cell Distribution Width 14.4% (11.5-14.5) Platelet Count 84x10^3/uL (140-400) Neutrophils (%) (Auto) 88% (31-73) Lymphocytes (%) (Auto) 5% (24-48) Monocytes (%) (Auto) 7% (0-9) Eosinophils (%) (Auto) 0% (0-3) Basophils (%) (Auto) 0% (0-3) Neutrophils # (Auto) 6.3x10^3uL (1.8-7.7) Lymphocytes # (Auto) 0.3x10^3/uL (1.0-4.8) Monocytes # (Auto) 0.5x10^3/uL (0.0-1.1) Eosinophils # (Auto) 0.0x10^3/uL (0.0-0.7) Basophils # (Auto) 0.0x10^3/uL (0.0-0.2) Sodium Level 133mmol/L (136-145) Potassium Level 3.9mmol/L (3.5-5.1) Chloride Level 101mmol/L (98-107) Carbon Dioxide Level 18mmol/L (21-32) Anion Gap 14 (6-14) Blood Urea Nitrogen 58mg/dL (8-26) Creatinine 3.7mg/dL (0.7-1.3) Estimated GFR (Cockcroft-Gault) 16.3 Glucose Level 392mg/dL (70-99) Calcium Level 7.5mg/dL (8.5-10.1) Phosphorus Level 4.2mg/dL (2.6-4.7) Magnesium Level 2.4mg/dL (1.8-2.4) Albumin 1.6g/dL (3.4-5.0) ANJELICA DE LEON MD Oct 23, 2016 07:17
--- NOTE | 2016-10-23 07:25 | PDOC ---
Infectious Disease Note Subjective Subjective pt feeling good ROS ROS GEN: Denies fevers, chills, sweats HEENT: Denies blurred vision, sore throat CV: Denies chest pain RESP: Denies shortness of air, cough GI: Denies n/v/d NEURO: Denies confusion, dizziness MSK: Denies weakness, joint pain/swelling Vital Sign Vital Signs Vital Signs Date Time Temp Pulse Resp B/P Pulse Ox O2 Delivery O2 Flow Rate FiO2 10/23/16 06:00 75 12 125/62 97 Room Air 10/23/16 04:00 96.7 96.7 10/23/16 00:19 2.0 Physical Exam PHYSICAL EXAM GENERAL: NAD, Alert HEENT: PERRL, OC/OP NECK: Supple, no JVD, no LN LUNGS: Clear HEART: S1S2, no gallop, no murmur ABD: Soft, NT, no organomegaly, no rebound EXT: No edema, no cyanosis,, left foot now with wound vac EVENT EXECUTIVE: Alert, oriented x 3, no focal neurologic deficit SKIN: No rash IV: ok Labs Lab Laboratory Tests Test 10/22/16 13:23 10/22/16 15:15 10/22/16 17:56 10/22/16 23:20 Glucose (Fingerstick) 262mg/dL (70-99) 359mg/dL (70-99) 478mg/dL (70-99) Vancomycin Level Trough 11.9mcg/mL (10.0-20.0) Vancomycin Last Dose Date 10/21/16 Vancomycin Last Dose Time 1600 Test 10/23/16 02:29 10/23/16 05:23 Glucose (Fingerstick) 389mg/dL (70-99) White Blood Count 7.1x10^3/uL (4.0-11.0) Red Blood Count 3.71x10^6/uL (4.30-5.70) Hemoglobin 10.5g/dL (13.0-17.5) Hematocrit 31.8% (39.0-53.0) Mean Corpuscular Volume 86fL (79-100) Mean Corpuscular Hemoglobin 28pg (25-35) Mean Corpuscular Hemoglobin Concent 33g/dL (31-37) Red Cell Distribution Width 14.4% (11.5-14.5) Platelet Count 84x10^3/uL (140-400) Neutrophils (%) (Auto) 88% (31-73) Lymphocytes (%) (Auto) 5% (24-48) Monocytes (%) (Auto) 7% (0-9) Eosinophils (%) (Auto) 0% (0-3) Basophils (%) (Auto) 0% (0-3) Neutrophils # (Auto) 6.3x10^3uL (1.8-7.7) Lymphocytes # (Auto) 0.3x10^3/uL (1.0-4.8) Monocytes # (Auto) 0.5x10^3/uL (0.0-1.1) Eosinophils # (Auto) 0.0x10^3/uL (0.0-0.7) Basophils # (Auto) 0.0x10^3/uL (0.0-0.2) Sodium Level 133mmol/L (136-145) Potassium Level 3.9mmol/L (3.5-5.1) Chloride Level 101mmol/L (98-107) Carbon Dioxide Level 18mmol/L (21-32) Anion Gap 14 (6-14) Blood Urea Nitrogen 58mg/dL (8-26) Creatinine 3.7mg/dL (0.7-1.3) Estimated GFR (Cockcroft-Gault) 16.3 Glucose Level 392mg/dL (70-99) Calcium Level 7.5mg/dL (8.5-10.1) Phosphorus Level 4.2mg/dL (2.6-4.7) Magnesium Level 2.4mg/dL (1.8-2.4) Albumin 1.6g/dL (3.4-5.0) Micro BC + 4/4 G + cocci G A strep + Objective Assessment Extensive left foot infection Septic shock Lactic acidosis DM BC + ,Group A strep Plan Plan of Care kwabena, d/c zyvox supportive care JASVIR DE LEON MD Oct 23, 2016 07:24
[2016-10-23] MEDS ORDERED: LIDOCAINE 1% / SOD BICARB 8.4% 20 ML VIAL. IJ ONE ×2 (07:55→08:30)
[2016-10-23] MEDS ORDERED: HEPARIN for IV BOLUS 10,000 UNIT/10 ML VIAL. ONE (07:55)
[2016-10-23] MEDS ORDERED: INSULIN DETEMIR 300 UNITS/3 ML INSULN.PEN. SQ SCH (08:00)
--- NOTE | 2016-10-23 08:14 | PDOC ---
ORTHO PROGRESS NOTES Subjective L foot feels better, per patient Vitals Vital Signs Date Time Temp Pulse Resp B/P Pulse Ox O2 Delivery O2 Flow Rate FiO2 10/23/16 07:00 64 14 116/61 94 Room Air 10/23/16 04:00 96.7 96.7 10/23/16 00:19 2.0 Labs Laboratory Tests Test 10/21/16 08:28 10/21/16 09:22 10/21/16 09:40 10/21/16 10:00 Glucose (Fingerstick) 42mg/dL (70-99) 85mg/dL (70-99) Prothrombin Time 16.6SEC (11.7-14.0) Prothromb Time International Ratio 1.4 (0.8-1.1) Lactic Acid Level 1.9mmol/L (0.4-2.0) Creatine Kinase 391U/L (39-308) Test 10/21/16 12:37 10/21/16 16:48 10/21/16 17:51 10/21/16 19:22 Glucose (Fingerstick) 89mg/dL (70-99) 41mg/dL (70-99) 80mg/dL (70-99) Urine Collection Type Unknown Urine Color Yellow Urine Clarity Cloudy Urine pH 5.5 Urine Specific [place] 1.015 Urine Protein 84.8mg/dL (Not Estab.) Urine Glucose (UA) Negativemg/dL (NEG) Urine Ketones (Stick) Negativemg/dL (NEG) Urine Blood Large (NEG) Urine Nitrite Negative (NEG) Urine Bilirubin Negative (NEG) Urine Urobilinogen Dipstick 1.0mg/dL (0.2 mg/dL) Urine Leukocyte Esterase Moderate (NEG) Urine RBC 20-40/HPF (0-2) Urine WBC >40/HPF (0-4) Urine Squamous Epithelial Cells Few/LPF Urine Amorphous Sediment Present/HPF Urine Bacteria 0/HPF (0-FEW) Urine Hyaline Casts Few/HPF Urine Granular Casts Many/HPF Urine Waxy Casts Few/HPF Urine Random Sodium <20mmol/L (Not Estab.) Urine Creatinine 90.4mg/dL (Not Estab.) Urine Protein/Creatinine Ratio 938mg/g creat (0-200) Clostridium difficile Toxin (PCR) Negative (Negative) Test 10/21/16 23:28 10/21/16 23:44 10/22/16 03:05 10/22/16 04:16 Glucose (Fingerstick) 40mg/dL (70-99) 148mg/dL (70-99) 37mg/dL (70-99) Hemoglobin 10.8g/dL (13.0-17.5) Sodium Level 133mmol/L (136-145) Potassium Level 3.5mmol/L (3.5-5.1) Chloride Level 102mmol/L (98-107) Carbon Dioxide Level 21mmol/L (21-32) Anion Gap 10 (6-14) Blood Urea Nitrogen 55mg/dL (8-26) Creatinine 3.3mg/dL (0.7-1.3) Estimated GFR (Cockcroft-Gault) 18.6 Glucose Level 47mg/dL (70-99) Calcium Level 7.3mg/dL (8.5-10.1) Phosphorus Level 3.1mg/dL (2.6-4.7) Magnesium Level 1.7mg/dL (1.8-2.4) Albumin 1.4g/dL (3.4-5.0) Test 10/22/16 04:41 10/22/16 06:36 10/22/16 13:23 10/22/16 15:15 Glucose (Fingerstick) 124mg/dL (70-99) 89mg/dL (70-99) 262mg/dL (70-99) Vancomycin Level Trough 11.9mcg/mL (10.0-20.0) Vancomycin Last Dose Date 10/21/16 Vancomycin Last Dose Time 1600 Test 10/22/16 17:56 10/22/16 23:20 10/23/16 02:29 10/23/16 05:23 Glucose (Fingerstick) 359mg/dL (70-99) 478mg/dL (70-99) 389mg/dL (70-99) White Blood Count 7.1x10^3/uL (4.0-11.0) Red Blood Count 3.71x10^6/uL (4.30-5.70) Hemoglobin 10.5g/dL (13.0-17.5) Hematocrit 31.8% (39.0-53.0) Mean Corpuscular Volume 86fL (79-100) Mean Corpuscular Hemoglobin 28pg (25-35) Mean Corpuscular Hemoglobin Concent 33g/dL (31-37) Red Cell Distribution Width 14.4% (11.5-14.5) Platelet Count 84x10^3/uL (140-400) Neutrophils (%) (Auto) 88% (31-73) Lymphocytes (%) (Auto) 5% (24-48) Monocytes (%) (Auto) 7% (0-9) Eosinophils (%) (Auto) 0% (0-3) Basophils (%) (Auto) 0% (0-3) Neutrophils # (Auto) 6.3x10^3uL (1.8-7.7) Lymphocytes # (Auto) 0.3x10^3/uL (1.0-4.8) Monocytes # (Auto) 0.5x10^3/uL (0.0-1.1) Eosinophils # (Auto) 0.0x10^3/uL (0.0-0.7) Basophils # (Auto) 0.0x10^3/uL (0.0-0.2) Sodium Level 133mmol/L (136-145) Potassium Level 3.9mmol/L (3.5-5.1) Chloride Level 101mmol/L (98-107) Carbon Dioxide Level 18mmol/L (21-32) Anion Gap 14 (6-14) Blood Urea Nitrogen 58mg/dL (8-26) Creatinine 3.7mg/dL (0.7-1.3) Estimated GFR (Cockcroft-Gault) 16.3 Glucose Level 392mg/dL (70-99) Calcium Level 7.5mg/dL (8.5-10.1) Phosphorus Level 4.2mg/dL (2.6-4.7) Magnesium Level 2.4mg/dL (1.8-2.4) Albumin 1.6g/dL (3.4-5.0) Laboratory Tests Test 10/22/16 13:23 10/22/16 15:15 10/22/16 17:56 10/22/16 23:20 Glucose (Fingerstick) 262mg/dL (70-99) 359mg/dL (70-99) 478mg/dL (70-99) Vancomycin Level Trough 11.9mcg/mL (10.0-20.0) Vancomycin Last Dose Date 10/21/16 Vancomycin Last Dose Time 1600 Test 10/23/16 02:29 10/23/16 05:23 Glucose (Fingerstick) 389mg/dL (70-99) White Blood Count 7.1x10^3/uL (4.0-11.0) Red Blood Count 3.71x10^6/uL (4.30-5.70) Hemoglobin 10.5g/dL (13.0-17.5) Hematocrit 31.8% (39.0-53.0) Mean Corpuscular Volume 86fL (79-100) Mean Corpuscular Hemoglobin 28pg (25-35) Mean Corpuscular Hemoglobin Concent 33g/dL (31-37) Red Cell Distribution Width 14.4% (11.5-14.5) Platelet Count 84x10^3/uL (140-400) Neutrophils (%) (Auto) 88% (31-73) Lymphocytes (%) (Auto) 5% (24-48) Monocytes (%) (Auto) 7% (0-9) Eosinophils (%) (Auto) 0% (0-3) Basophils (%) (Auto) 0% (0-3) Neutrophils # (Auto) 6.3x10^3uL (1.8-7.7) Lymphocytes # (Auto) 0.3x10^3/uL (1.0-4.8) Monocytes # (Auto) 0.5x10^3/uL (0.0-1.1) Eosinophils # (Auto) 0.0x10^3/uL (0.0-0.7) Basophils # (Auto) 0.0x10^3/uL (0.0-0.2) Sodium Level 133mmol/L (136-145) Potassium Level 3.9mmol/L (3.5-5.1) Chloride Level 101mmol/L (98-107) Carbon Dioxide Level 18mmol/L (21-32) Anion Gap 14 (6-14) Blood Urea Nitrogen 58mg/dL (8-26) Creatinine 3.7mg/dL (0.7-1.3) Estimated GFR (Cockcroft-Gault) 16.3 Glucose Level 392mg/dL (70-99) Calcium Level 7.5mg/dL (8.5-10.1) Phosphorus Level 4.2mg/dL (2.6-4.7) Magnesium Level 2.4mg/dL (1.8-2.4) Albumin 1.6g/dL (3.4-5.0) Notes A and A in bed LLE: edema unchanged VAC in place with good seal Assessment and Plan I and D, VAC GPC on gram stain abx per ID [id number] LLE, not ok with post-op shoe JUWAN WALLACE II, MD Oct 23, 2016 08:14
--- NOTE | 2016-10-23 08:49 | PDOC ---
Exam Special Needs Nanny Special Needs Nanny Kemal Photographic Colorist Photographic Colorist V Cole Pre-Procedure Diagnosis Pre-Procedure Diagnosis 71 YO male diabetic ICU patient with ARF and met acidosis. Bedside temp HDC insertion requested by Renal. Post-Procedure Diagnosis Post-Procedure Diagnosis Same Procedure Performed Procedure Performed Bedside ICU sono guided temp HDC insertion Type of Anesthesia Type of Anesthesia Local Estimated Blood Loss EBL: Minimal Drain/Tubes Drains/Tubes Rt IJ 14F 20cm Schon temp HDC Condition of Patient Condition of Patient No change. No apparent complication. Disposition Disposition STAT pCXR requested for HDC position. Full report to follow. EMERSON GONG MD Oct 23, 2016 08:49
[2016-10-23] MEDS: DOCUSATE SODIUM 100 MG CAPSULE PO SCH ×2 (09:00→21:24)
--- NOTE | 2016-10-23 09:11 | RAD ---
Portable chest, 10/23/2016: History: Post catheter placement Comparison is made to a study from 10/20/2016. A right jugular dialysis type catheter has been inserted extending into the mid right atrium. The heart size is normal. There are now mild patchy bilateral pulmonary infiltrates, whereas only minimal right infrahilar infiltrate was evident on the previous study. The underlying pulmonary vascularity is somewhat poorly defined. There is no evidence of pneumothorax or pleural fluid. IMPRESSION: 1. Interval insertion of a right dialysis type catheter extending into the right atrium. 2. Worsening bilateral pulmonary infiltrates suggesting pneumonia. Pulmonary edema is less likely.
--- NOTE | 2016-10-23 09:12 | PDOC ---
PROGRESS NOTES Chief Complaint Chief Complaint 1. Left foot osteomyelitis 2. DM 2 uncontrolled, hypoglycemia yesterday, now elevated, 3. HTN 4 Atrial fib 5. Sepsis infectious 6. RHETT, vasomotor, cont IV fluids 7 Acute diarrhea 8, Mild thrombocytopenia 9 met acidosis 10. Mod.severe malnutrition, POA History of Present Illness History of Present Illness restart insulin, limit PO DM meds with renal failure, renal following, consider HD HR in 60's looks better, transfer to floor conrt broad IV abx surg done this AM Vitals Vitals Vital Signs Date Time Temp Pulse Resp B/P Pulse Ox O2 Delivery O2 Flow Rate FiO2 10/23/16 08:00 Room Air 10/23/16 08:00 97.4 69 16 98/42 96 97.4 10/23/16 00:19 2.0 Physical Exam General: Alert, Oriented X3, Cooperative, No acute distress Heart: Normal S1, Normal S2, Other (2/6 systolic murmur to LLS border; AFIB) Lungs: Clear, Wheezing Abdomen: Soft, No tenderness Extremities: No clubbing, No cyanosis Skin: Other (left foot wound) Labs LABS Laboratory Tests Test 10/22/16 13:23 10/22/16 15:15 10/22/16 17:56 10/22/16 23:20 Glucose (Fingerstick) 262mg/dL (70-99) 359mg/dL (70-99) 478mg/dL (70-99) Vancomycin Level Trough 11.9mcg/mL (10.0-20.0) Vancomycin Last Dose Date 10/21/16 Vancomycin Last Dose Time 1600 Test 10/23/16 02:29 10/23/16 05:23 Glucose (Fingerstick) 389mg/dL (70-99) White Blood Count 7.1x10^3/uL (4.0-11.0) Red Blood Count 3.71x10^6/uL (4.30-5.70) Hemoglobin 10.5g/dL (13.0-17.5) Hematocrit 31.8% (39.0-53.0) Mean Corpuscular Volume 86fL (79-100) Mean Corpuscular Hemoglobin 28pg (25-35) Mean Corpuscular Hemoglobin Concent 33g/dL (31-37) Red Cell Distribution Width 14.4% (11.5-14.5) Platelet Count 84x10^3/uL (140-400) Neutrophils (%) (Auto) 88% (31-73) Lymphocytes (%) (Auto) 5% (24-48) Monocytes (%) (Auto) 7% (0-9) Eosinophils (%) (Auto) 0% (0-3) Basophils (%) (Auto) 0% (0-3) Neutrophils # (Auto) 6.3x10^3uL (1.8-7.7) Lymphocytes # (Auto) 0.3x10^3/uL (1.0-4.8) Monocytes # (Auto) 0.5x10^3/uL (0.0-1.1) Eosinophils # (Auto) 0.0x10^3/uL (0.0-0.7) Basophils # (Auto) 0.0x10^3/uL (0.0-0.2) Sodium Level 133mmol/L (136-145) Potassium Level 3.9mmol/L (3.5-5.1) Chloride Level 101mmol/L (98-107) Carbon Dioxide Level 18mmol/L (21-32) Anion Gap 14 (6-14) Blood Urea Nitrogen 58mg/dL (8-26) Creatinine 3.7mg/dL (0.7-1.3) Estimated GFR (Cockcroft-Gault) 16.3 Glucose Level 392mg/dL (70-99) Calcium Level 7.5mg/dL (8.5-10.1) Phosphorus Level 4.2mg/dL (2.6-4.7) Magnesium Level 2.4mg/dL (1.8-2.4) Albumin 1.6g/dL (3.4-5.0) Review of Systems Review of Systems no n.v.d feels well pain OK Assessment and Plan Assessmemt and Plan Problems Medical Problems: (1) Acute renal failure Status: Acute (2) Atrial fibrillation with RVR Status: Acute (3) Lactic acidosis Status: Acute (4) Severe sepsis Status: Acute (5) Uncontrolled diabetes mellitus Status: Acute Problems: Comment Review of Relevant I have reviewed the following items jovan (where applicable) has been applied. Labs Laboratory Tests Test 10/21/16 09:22 10/21/16 09:40 10/21/16 10:00 10/21/16 12:37 Glucose (Fingerstick) 85mg/dL (70-99) 89mg/dL (70-99) Prothrombin Time 16.6SEC (11.7-14.0) Prothromb Time International Ratio 1.4 (0.8-1.1) Lactic Acid Level 1.9mmol/L (0.4-2.0) Creatine Kinase 391U/L (39-308) Test 10/21/16 16:48 10/21/16 17:51 10/21/16 19:22 10/21/16 23:28 Urine Collection Type Unknown Urine Color Yellow Urine Clarity Cloudy Urine pH 5.5 Urine Specific [place] 1.015 Urine Protein 84.8mg/dL (Not Estab.) Urine Glucose (UA) Negativemg/dL (NEG) Urine Ketones (Stick) Negativemg/dL (NEG) Urine Blood Large (NEG) Urine Nitrite Negative (NEG) Urine Bilirubin Negative (NEG) Urine Urobilinogen Dipstick 1.0mg/dL (0.2 mg/dL) Urine Leukocyte Esterase Moderate (NEG) Urine RBC 20-40/HPF (0-2) Urine WBC >40/HPF (0-4) Urine Squamous Epithelial Cells Few/LPF Urine Amorphous Sediment Present/HPF Urine Bacteria 0/HPF (0-FEW) Urine Hyaline Casts Few/HPF Urine Granular Casts Many/HPF Urine Waxy Casts Few/HPF Urine Random Sodium <20mmol/L (Not Estab.) Urine Creatinine 90.4mg/dL (Not Estab.) Urine Protein/Creatinine Ratio 938mg/g creat (0-200) Clostridium difficile Toxin (PCR) Negative (Negative) Glucose (Fingerstick) 41mg/dL (70-99) 80mg/dL (70-99) 40mg/dL (70-99) Test 10/21/16 23:44 10/22/16 03:05 10/22/16 04:16 10/22/16 04:41 Glucose (Fingerstick) 148mg/dL (70-99) 37mg/dL (70-99) 124mg/dL (70-99) Hemoglobin 10.8g/dL (13.0-17.5) Sodium Level 133mmol/L (136-145) Potassium Level 3.5mmol/L (3.5-5.1) Chloride Level 102mmol/L (98-107) Carbon Dioxide Level 21mmol/L (21-32) Anion Gap 10 (6-14) Blood Urea Nitrogen 55mg/dL (8-26) Creatinine 3.3mg/dL (0.7-1.3) Estimated GFR (Cockcroft-Gault) 18.6 Glucose Level 47mg/dL (70-99) Calcium Level 7.3mg/dL (8.5-10.1) Phosphorus Level 3.1mg/dL (2.6-4.7) Magnesium Level 1.7mg/dL (1.8-2.4) Albumin 1.4g/dL (3.4-5.0) Test 10/22/16 06:36 10/22/16 13:23 10/22/16 15:15 10/22/16 17:56 Glucose (Fingerstick) 89mg/dL (70-99) 262mg/dL (70-99) 359mg/dL (70-99) Vancomycin Level Trough 11.9mcg/mL (10.0-20.0) Vancomycin Last Dose Date 10/21/16 Vancomycin Last Dose Time 1600 Test 10/22/16 23:20 10/23/16 02:29 10/23/16 05:23 Glucose (Fingerstick) 478mg/dL (70-99) 389mg/dL (70-99) White Blood Count 7.1x10^3/uL (4.0-11.0) Red Blood Count 3.71x10^6/uL (4.30-5.70) Hemoglobin 10.5g/dL (13.0-17.5) Hematocrit 31.8% (39.0-53.0) Mean Corpuscular Volume 86fL (79-100) Mean Corpuscular Hemoglobin 28pg (25-35) Mean Corpuscular Hemoglobin Concent 33g/dL (31-37) Red Cell Distribution Width 14.4% (11.5-14.5) Platelet Count 84x10^3/uL (140-400) Neutrophils (%) (Auto) 88% (31-73) Lymphocytes (%) (Auto) 5% (24-48) Monocytes (%) (Auto) 7% (0-9) Eosinophils (%) (Auto) 0% (0-3) Basophils (%) (Auto) 0% (0-3) Neutrophils # (Auto) 6.3x10^3uL (1.8-7.7) Lymphocytes # (Auto) 0.3x10^3/uL (1.0-4.8) Monocytes # (Auto) 0.5x10^3/uL (0.0-1.1) Eosinophils # (Auto) 0.0x10^3/uL (0.0-0.7) Basophils # (Auto) 0.0x10^3/uL (0.0-0.2) Sodium Level 133mmol/L (136-145) Potassium Level 3.9mmol/L (3.5-5.1) Chloride Level 101mmol/L (98-107) Carbon Dioxide Level 18mmol/L (21-32) Anion Gap 14 (6-14) Blood Urea Nitrogen 58mg/dL (8-26) Creatinine 3.7mg/dL (0.7-1.3) Estimated GFR (Cockcroft-Gault) 16.3 Glucose Level 392mg/dL (70-99) Calcium Level 7.5mg/dL (8.5-10.1) Phosphorus Level 4.2mg/dL (2.6-4.7) Magnesium Level 2.4mg/dL (1.8-2.4) Albumin 1.6g/dL (3.4-5.0) Laboratory Tests Test 10/22/16 13:23 10/22/16 15:15 10/22/16 17:56 10/22/16 23:20 Glucose (Fingerstick) 262mg/dL (70-99) 359mg/dL (70-99) 478mg/dL (70-99) Vancomycin Level Trough 11.9mcg/mL (10.0-20.0) Vancomycin Last Dose Date 10/21/16 Vancomycin Last Dose Time 1600 Test 10/23/16 02:29 10/23/16 05:23 Glucose (Fingerstick) 389mg/dL (70-99) White Blood Count 7.1x10^3/uL (4.0-11.0) Red Blood Count 3.71x10^6/uL (4.30-5.70) Hemoglobin 10.5g/dL (13.0-17.5) Hematocrit 31.8% (39.0-53.0) Mean Corpuscular Volume 86fL (79-100) Mean Corpuscular Hemoglobin 28pg (25-35) Mean Corpuscular Hemoglobin Concent 33g/dL (31-37) Red Cell Distribution Width 14.4% (11.5-14.5) Platelet Count 84x10^3/uL (140-400) Neutrophils (%) (Auto) 88% (31-73) Lymphocytes (%) (Auto) 5% (24-48) Monocytes (%) (Auto) 7% (0-9) Eosinophils (%) (Auto) 0% (0-3) Basophils (%) (Auto) 0% (0-3) Neutrophils # (Auto) 6.3x10^3uL (1.8-7.7) Lymphocytes # (Auto) 0.3x10^3/uL (1.0-4.8) Monocytes # (Auto) 0.5x10^3/uL (0.0-1.1) Eosinophils # (Auto) 0.0x10^3/uL (0.0-0.7) Basophils # (Auto) 0.0x10^3/uL (0.0-0.2) Sodium Level 133mmol/L (136-145) Potassium Level 3.9mmol/L (3.5-5.1) Chloride Level 101mmol/L (98-107) Carbon Dioxide Level 18mmol/L (21-32) Anion Gap 14 (6-14) Blood Urea Nitrogen 58mg/dL (8-26) Creatinine 3.7mg/dL (0.7-1.3) Estimated GFR (Cockcroft-Gault) 16.3 Glucose Level 392mg/dL (70-99) Calcium Level 7.5mg/dL (8.5-10.1) Phosphorus Level 4.2mg/dL (2.6-4.7) Magnesium Level 2.4mg/dL (1.8-2.4) Albumin 1.6g/dL (3.4-5.0) Microbiology 10/20/16 Blood Culture - Preliminary, Resulted 10/20/16 Blood Culture Result 1 (HERBERT) - Preliminary, Resulted 10/21/16 Urine Culture - Preliminary, Resulted 10/21/16 Urine Culture Result 1 (HERBERT) - Preliminary, Resulted 10/22/16 Gram Stain - Final, Complete Medications Current Medications Diltiazem HCl 20 mg 20 mg 1X ONCE IVP Last administered on 10/20/16 13:35; Start 10/20/16 at 13:30; Stop 10/20/16 at 13:31; Status DC Diltiazem HCl 125 mg/Dextrose 125 ml @ 10 mls/hr 1X ONCE IV Last administered on 10/20/16 13:49; Start 10/20/16 at 13:30; Stop 10/20/16 at 19:37; Status DC Sodium Chloride (Iv Sodium Chloride 0.9% 1000ml Bag) 1,000 ml @ 100 mls/hr Q10H IV Last administered on 10/20/16 13:45; Start 10/20/16 at 13:30; Stop at 23:29; Status DC Diltiazem HCl (Cardizem) 20 mg 1X ONCE IVP Last administered on 10/20/16 14:16 ; Start 10/20/16 at 14:00; Stop 10/20/16 at 14:01; Status DC Vancomycin HCl (Vanco Per Pharmacy) 1 each PRN DAILY PRN MC SEE COMMENTS Last administered on 10/20/16 16:49; Start 10/20/16 at 14:45; Stop 10/21/16 at 07:42; Status DC Piperacillin Sod/ Tazobactam Sod 1 each 1 each PRN DAILY PRN MC SEE COMMENTS; Start 10/20/16 at 14:45; Stop 10/21/16 at 07:49; Status DC Vancomycin HCl 2 gm/Sodium Chloride 500 ml @ 250 mls/hr 1X ONCE IV Last administered on 10/20/16 15:45; Start 10/20/16 at 15:00; Stop 10/20/16 at 16:59; Status DC Piperacillin Sod/ Tazobactam Sod/ Sodium Chloride (Zosyn/Iv Sodium Chloride 0.9 % 50ml) 50 ml @ 100 mls/hr 1X ONCE IV Last administered on 10/20/16 15:04; Start 10/20/16 at 15:00; Stop 10/20/16 at 15:29; Status DC Ondansetron HCl (Zofran) 4 mg PRN Q8HRS PRN IV NAUSEA/VOMITING; Start 10/20/16 at 15:00; Stop 10/20/16 at 15:16; Status DC Fentanyl Citrate 50 mcg 50 mcg PRN Q2HR PRN IV PAIN; Start 10/20/16 at 15:00; Stop 10/21/16 at 14:59; Status DC Sodium Chloride (Iv Sodium Chloride 0.9% 1000ml Bag) 1,000 ml @ 100 mls/hr Q10H IV Last administered on 10/21/16 11:30; Start 10/20/16 at 15:30; Stop at 15:29; Status DC Acetaminophen (Tylenol) 650 mg PRN Q4HRS PRN PO FEVER; Start 10/20/16 at 15:00; Stop 10/21/16 at 14:59; Status DC Ondansetron HCl (Zofran) 4 mg PRN Q6HRS PRN IV NAUSEA/VOMITING; Start 10/20/16 at 15:12 Insulin Aspart (Novolog) 0-9 UNITS TIDWMEALS SQ Last administered on 10/22/16 17:59; Start 10/20/16 at 17:00 Dextrose 12.5 gm PRN Q15MIN PRN IV SEE COMMENTS Last administered on 10/22/16 04:19; Start 10/20/16 at 15:15 Docusate Sodium (Colace) 100 mg BID PO Last administered on 10/21/16 09:20; Start 10/20/16 at 21:00 Glimepiride (Amaryl) 2 mg BID PO ; Start 10/20/16 at 21:00; Status UNV Acetaminophen/ Hydrocodone Bitart (Lortab 7.5/325) 1 tab PRN Q3HRS PRN PO PAIN Last administered on 10/23/16 00:19; Start 10/20/16 at 15:15 Glimepiride (Amaryl) 4 mg BIDWMEALS PO Last administered on 10/20/16 17:32; Start 10/20/16 at 17:00; Stop 10/21/16 at 14:52; Status DC Insulin Detemir (Levemir) 30 units QHS SQ Last administered on 10/20/16 21:03; Start 10/20/16 at 21:00; Stop 10/21/16 at 14:52; Status DC Ondansetron HCl 4 mg 4 mg Q8HRS PO Last administered on 10/21/16 06:17; Start 10/20/16 at 22:00; Stop 10/21/16 at 17:24; Status DC Sodium Chloride 500 ml @ 500 mls/hr 1X ONCE IV ; Start 10/20/16 at 15:30; Stop 10/20/16 at 16:29; Status DC Piperacillin Sod/ Tazobactam Sod 2.25 gm/Sodium Chloride 50 ml @ 100 mls/hr Q6HRS IV Last administered on 10/23/16 05:30; Start 10/21/16 at 00:00 Vancomycin HCl/ Sodium Chloride (Iv Sodium Chloride 0.9% 250ml) 250 ml @ 167 mls/hr Q24H IV ; Start 10/21/16 at 16:00; Stop 10/21/16 at 16:00; Status DC Vancomycin HCl 1 each 1 each 1X ONCE MC ; Start 10/22/16 at 15:30; Stop 10/22/16 at 15:31; Status Cancel Dopamine HCl/ Dextrose 250 ml @ 13.183 mls/ hr CONT PRN IV SEE I/O RECORD Last administered on 10/20/16 20:38; Start 10/20/16 at 19:30 Digoxin (Lanoxin) 250 mcg 1X ONCE IV Last administered on 10/20/16 21:02; Start 10/20/16 at 20:45; Stop 10/20/16 at 20:46; Status DC Digoxin (Lanoxin) 250 mcg 1X ONCE IV Last administered on 10/21/16 01:48; Start 10/21/16 at 02:00; Stop 10/21/16 at 02:01; Status DC Digoxin 250 mcg 250 mcg 1X ONCE IV Last administered on 10/21/16 04:12; Start 10/21/16 at 04:15; Stop 10/21/16 at 04:16; Status DC Diltiazem HCl 125 mg/Dextrose 125 ml @ 0 mls/hr CONT PRN IV SEE I/O RECORD Last administered on 10/21/16 23:03; Start 10/21/16 at 04:15; Stop 10/22/16 at 09: 44; Status DC Linezolid 300 ml @ 300 mls/hr Q12HR IV Last administered on 10/22/16 20:18; Start 10/21/16 at 09:00; Stop 10/23/16 at 07:26; Status DC Magnesium Sulfate/ Dextrose 50 ml @ 25 mls/hr PRN DAILY PRN IV for Mag < 1.7 on am labs Last administered on 10/22/16 15:15; Start 10/21/16 at 09:45 Albumin Human (Plasmanate) 500 ml @ 125 mls/hr 1X ONCE IV Last administered on 10/21/16 10:25; Start 10/21/16 at 09:45; Stop 10/21/16 at 13:44; Status DC Ondansetron HCl (Zofran) 4 mg PRN Q6HRS PRN IV Nausea; Start 10/21/16 at 10:00; Stop 10/22/16 at 09:59; Status DC Fentanyl Citrate (Fentanyl 2ml Vial) 25 mcg PRN Q5MIN PRN IV MILD PAIN; Start 10/21/16 at 10:00; Stop 10/22/16 at 09:59; Status DC Fentanyl Citrate (Fentanyl 2ml Vial) 50 mcg PRN Q5MIN PRN IV MODERATE PAIN; Start 10/21/16 at 10:00; Stop 10/22/16 at 09:59; Status DC Morphine Sulfate 1 mg 1 mg PRN Q10MIN PRN IV SEVERE PAIN; Start 10/21/16 at 10: 00; Stop 10/22/16 at 09:59; Status DC Lactated Ringer's (Iv Lactated Ringers) 1,000 ml @ 30 mls/hr Q24H IV ; Start at 09:50; Stop 10/21/16 at 21:49; Status DC Lidocaine HCl 2 ml 1X PRN PRN ID IV START; Start 10/21/16 at 10:00; Stop at 09:59; Status DC Hydromorphone HCl (Dilaudid) 0.5 mg PRN Q10MIN PRN IV SEV PAIN,Second choice; Start 10/21/16 at 10:00; Stop 10/22/16 at 09:59; Status DC Prochlorperazine Edisylate 5 mg 5 mg PACU PRN PRN IV NAUSEA; Start 10/21/16 at 10:00; Stop 10/22/16 at 09:59; Status DC Sodium Chloride (Iv Sodium Chloride 0.9% 500ml Bag) 500 ml @ 0 mls/hr PRN QID PRN IV UO< 30cc/hr over previous 6hrs; Start 10/21/16 at 10:15; Stop 10/21/16 at 17:27; Status DC Ondansetron HCl (Zofran) 4 mg PRN Q6HRS PRN IV Nausea; Start 10/21/16 at 11:30; Stop 10/22/16 at 11:29; Status DC Morphine Sulfate 1 mg 1 mg PRN Q10MIN PRN IV SEVERE PAIN; Start 10/21/16 at 11: 30; Stop 10/22/16 at 11:29; Status DC Lactated Ringer's (Iv Lactated Ringers) 1,000 ml @ 0 mls/hr Q0M IV ; Start 10/21 at 11:19; Stop 10/21/16 at 23:18; Status DC Lidocaine HCl 2 ml 1X PRN PRN ID IV START; Start 10/21/16 at 11:30; Stop at 11:29; Status DC Hydromorphone HCl (Dilaudid) 0.5 mg PRN Q10MIN PRN IV SEV PAIN,Second choice; Start 10/21/16 at 11:30; Stop 10/22/16 at 11:29; Status DC Prochlorperazine Edisylate (Compazine) 5 mg PACU PRN PRN IV NAUSEA; Start at 11:30; Stop 10/22/16 at 11:29; Status DC Atorvastatin Calcium (Lipitor) 20 mg QHS PO Last administered on 10/22/16 20:16 ; Start 10/21/16 at 21:00 Aspirin (Ecotrin) 81 mg DAILYWBKFT PO Last administered on 10/21/16 12:00; Start 10/21/16 at 12:00 Ondansetron HCl (Zofran) 4 mg PRN Q6HRS PRN IV Nausea; Start 10/22/16 at 07:00; Stop 10/23/16 at 06:59; Status DC Morphine Sulfate 1 mg 1 mg PRN Q10MIN PRN IV SEVERE PAIN; Start 10/22/16 at 07: 00; Stop 10/23/16 at 06:59; Status DC Lactated Ringer's (Iv Lactated Ringers) 1,000 ml @ 30 mls/hr Q24H IV ; Start at 07:00; Stop 10/22/16 at 15:07; Status DC Lidocaine HCl 2 ml 1X PRN PRN ID IV START; Start 10/22/16 at 07:00; Stop at 06:59; Status DC Hydromorphone HCl (Dilaudid) 0.5 mg PRN Q10MIN PRN IV SEVERE PAIN, Second choice; Start 10/22/16 at 07:00; Stop 10/23/16 at 06:59; Status DC Prochlorperazine Edisylate (Compazine) 5 mg PACU PRN PRN IV NAUSEA; Start at 07:00; Stop 10/23/16 at 06:59; Status DC Aspirin (Ecotrin) 81 mg DAILYWBKFT PO ; Start 10/22/16 at 08:00; Status UNV Insulin Detemir (Levemir) 20 units QHS SQ ; Start 10/21/16 at 21:00; Stop at 08:29; Status DC Ondansetron HCl 4 mg 4 mg PRN Q8HRS PRN PO NAUSEA; Start 10/22/16 at 14:00 Sodium Chloride 1,000 ml @ 175 mls/hr Q5H43M IV Last administered on 05:30; Start 10/21/16 at 18:00; Stop 10/23/16 at 07:20; Status DC Dextrose 1,000 ml @ 75 mls/hr [id number] IV Last administered on 10/22/16 04:54; Start 10/22/16 at 04:45; Stop 10/22/16 at 15:05; Status DC Bupivacaine HCl (Sensorcaine Mpf 0.5%) 30 ml STK-MED ONCE .ROUTE ; Start at 06:45; Stop 10/22/16 at 06:46; Status DC Lidocaine HCl 20 ml 20 ml STK-MED ONCE .ROUTE ; Start 10/22/16 at 06:46; Stop 10/22/16 at 06:47; Status DC Propofol (Diprivan) 20 ml @ As Directed STK-MED ONCE IV ; Start 10/22/16 at 08:02 ; Stop 10/22/16 at 08:03; Status DC Lidocaine HCl 100 mg STK-MED ONCE .ROUTE ; Start 10/22/16 at 08:02; Stop 10/22/16 at 08:03; Status DC Ondansetron HCl (Zofran) 4 mg STK-MED ONCE .ROUTE ; Start 10/22/16 at 08:31; Stop 10/22/16 at 08:32; Status DC Phenylephrine HCl 1 mg STK-MED ONCE IV ; Start 10/22/16 at 08:31; Stop 10/22/16 at 08:32; Status DC Dexamethasone Sodium Phosphate (Decadron) 20 mg STK-MED ONCE .ROUTE ; Start 10/22 at 08:48; Stop 10/22/16 at 08:49; Status DC Sevoflurane (Ultane) 30 ml STK-MED ONCE IH ; Start 10/22/16 at 08:48; Stop at 08:49; Status DC Diltiazem HCl (Cardizem) 30 mg Q6HRS PO Last administered on 10/23/16 05:31; Start 10/22/16 at 10:00 Metoprolol Tartrate 5 mg 5 mg PRN Q6HRS PRN IVP ELEVATED BP, SEE COMMENTS; Start 10/22/16 at 09:45 Albumin Human (Plasmanate) 500 ml @ 125 mls/hr 1X ONCE IV Last administered on 10/22/16 11:20; Start 10/22/16 at 09:45; Stop 10/22/16 at 13:44; Status DC Info (Anti-Coagulation Monitoring By Pharmacy) 1 each PRN DAILY PRN MC SEE COMMENTS; Start 10/22/16 at 15:15; Status UNV Heparin Sodium (Porcine) 5,000 unit Q12HR SQ Last administered on 10/22/16 20: 49; Start 10/22/16 at 21:00 Loperamide HCl (Imodium) 2 mg PRN Q15MIN PRN PO DIARRHEA Last administered on 20:16; Start 10/22/16 at 20:00 Insulin Human Regular (Novolin R Vial) 10 unit 1X ONCE IV Last administered on 10/22/16 23:52; Start 10/22/16 at 01:00; Stop 10/22/16 at 23:46; Status DC Insulin Detemir (Levemir) 10 units 1X ONCE SQ Last administered on 10/22/16 23 :53; Start 10/22/16 at 23:45; Stop 10/22/16 at 23:46; Status DC Insulin Human Regular 10 unit 10 unit 1X ONCE IV Last administered on 00:09; Start 10/23/16 at 00:00; Stop 10/23/16 at 00:01; Status DC Sodium Chloride 38.75 meq/Sodium Bicarbonate 75 meq/Sterile Water 1,084.6875 ml @ 150 mls/hr CONT PRN IV SEE I/O RECORD; Start 10/23/16 at 07:30 Albumin Human (Albuminar) 100 ml @ 100 mls/hr TID IV ; Start 10/23/16 at 09:00 ; Stop 10/24/16 at 21:59 Heparin Sodium (Porcine) 10,000 unit STK-MED ONCE .ROUTE ; Start 10/23/16 at 07: 55; Stop 10/23/16 at 07:56; Status DC Lidocaine/Sodium Bicarbonate 20 ml 20 ml STK-MED ONCE IJ ; Start 10/23/16 at 07: 55; Stop 10/23/16 at 07:56; Status DC Heparin Sodium/ Sodium Chloride 500 ml @ As Directed STK-MED ONCE .ROUTE ; Start 10/23/16 at 07:55; Stop 10/23/16 at 07:56; Status DC Insulin Detemir (Levemir) 20 units DAILY08 SQ ; Start 10/23/16 at 08:00; Stop at 08:01; Status DC Insulin Aspart (Novolog) 10 units TIDAC SQ ; Start 10/23/16 at 11:30 Insulin Detemir (Levemir) 30 units DAILY08 SQ ; Start 10/23/16 at 08:30 Lidocaine/Sodium Bicarbonate (Buffered Lidocaine 1%) 3 ml 1X ONCE IJ Last administered on 10/23/16 08:48; Start 10/23/16 at 08:30; Stop 10/23/16 at 08:31 ; Status DC Heparin Sodium/ Sodium Chloride 60 unit 1X ONCE IV Last administered on 08:48; Start 10/23/16 at 08:30; Stop 10/23/16 at 08:31; Status DC Heparin Sodium (Porcine) 2,500 unit 1X ONCE INT CAT Last administered on t 08:48; Start 10/23/16 at 08:30; Stop 10/23/16 at 08:31; Status DC Active Scripts Active Reported Zofran Odt (Ondansetron) 8 Mg Tab.rapdis 1 Tab PO Q8HRS Colace (Docusate Sodium) 100 Mg Capsule 1 Cap PO BID Hydrocodone-Apap 7.5-325 (Hydrocodone Bit/Acetaminophen) 1 Each Tablet 1 Tab PO Q3HRS PRN Glimepiride 4 Mg Tablet 1 Tab PO BID Glimepiride 2 Mg Tablet 1 Tab PO BID Levemir (Insulin Detemir) 100 Unit/1 Ml Vial 30 Unit SQ HS Vitals/I & O Vital Sign - Last 24 Hours 10/22/16 10/22/16 10/22/16 10/22/16 09:30 09:45 10:00 10:30 Pulse 84 90 86 92 Resp 16 18 B/P 96/52 103/47 100/52 105/51 Pulse Ox 98 98 99 100 O2 Delivery Nasal Cannula Nasal Cannula Nasal Cannula Nasal Cannula O2 Flow Rate 2.0 2.0 2.0 2.0 10/22/16 10/22/16 10/22/16 10/22/16 11:00 11:21 12:00 12:00 Pulse 93 87 92 Resp 18 18 B/P 98/50 101/51 105/51 Pulse Ox 100 100 O2 Delivery Room Air Room Air Room Air 10/22/16 10/22/16 10/22/16 10/22/16 13:00 14:00 15:00 16:00 Pulse 96 92 94 Resp 16 18 18 B/P 78/32 76/36 97/47 Pulse Ox 100 100 100 O2 Delivery Room Air Room Air Room Air Room Air 10/22/16 10/22/16 10/22/16 10/22/16 16:00 17:00 18:00 18:00 Temp 98.3 98.3 Pulse 94 96 98 94 Resp 18 B/P 97/47 98/49 104/54 97/47 Pulse Ox 100 100 100 O2 Delivery Room Air Room Air Room Air 10/22/16 10/22/16 10/22/16 10/22/16 19:00 20:00 20:00 21:00 Temp 97.4 97.4 Pulse 94 83 83 Resp 18 18 18 B/P 113/63 116/62 125/70 Pulse Ox 99 97 92 O2 Delivery Room Air Room Air Room Air Room Air 10/22/16 10/22/16 10/23/16 10/23/16 22:00 23:00 00:00 00:00 Temp 97.8 97.8 Pulse 84 83 81 Resp 18 18 18 B/P 122/60 125/61 130/57 Pulse Ox 94 94 96 O2 Delivery Room Air Room Air Room Air Room Air 10/23/16 10/23/16 10/23/16 10/23/16 00:08 00:19 01:00 01:19 Pulse 85 81 Resp 16 B/P 130/57 127/64 Pulse Ox 97 96 96 O2 Delivery Room Air Room Air Room Air O2 Flow Rate 2.0 10/23/16 10/23/16 10/23/16 10/23/16 02:00 03:00 04:00 04:00 Temp 96.7 96.7 Pulse 80 73 68 Resp 14 18 12 B/P 126/59 110/56 126/60 Pulse Ox 96 96 96 O2 Delivery Room Air Room Air Room Air Room Air 10/23/16 10/23/16 10/23/16 10/23/16 05:00 05:31 06:00 07:00 Pulse 75 76 75 64 Resp 12 12 14 B/P 128/60 128/60 125/62 116/61 Pulse Ox 96 97 94 O2 Delivery Room Air Room Air Room Air 10/23/16 10/23/16 08:00 08:00 Temp 97.4 97.4 Pulse 69 Resp 16 B/P 98/42 Pulse Ox 96 O2 Delivery Room Air Room Air Intake and Output 10/22/16 10/22/16 10/23/16 15:00 23:00 07:00 Intake Total 950 ml 3335 ml 3004 ml Output Total 305 ml 345 ml 310 ml Balance 645 ml 2990 ml 2694 ml BEKA CARRION MD Oct 23, 2016 09:12
[2016-10-23] MEDS: LOPERAMIDE 2 MG CAPSULE PO PRN (09:27)
[2016-10-23] MEDS: ALBUMIN HUMAN 25% 100 ML IV SCH ×3 (09:27→21:23)
[2016-10-23] MEDS: HEPARIN PF for SUB-Q USE 5,000 UNIT/0.5 ML VIAL. SQ SCH ×2 (09:28→21:00)
[2016-10-23] MEDS: ASPIRIN ENTERIC COATED 81 MG TABLET.DR. PO SCH (09:28)
[2016-10-23] MEDS: SODIUM BICARBONATE IV PRN ×2 (09:29→21:36)
[2016-10-23] MEDS: SODIUM CHLORIDE IV PRN ×2 (09:29→21:36)
[2016-10-23] MEDS: STERILE WATER IV PRN ×2 (09:29→21:36)
[2016-10-23] MEDS: INSULIN DETEMIR 300 UNITS/3 ML INSULN.PEN. SQ SCH (09:55)
[2016-10-23] MEDS: INSULIN ASPART 300 UNITS/3 ML INSULN.PEN SQ SCH ×5 (09:57→17:47)
--- NOTE | 2016-10-23 10:06 | PDOC ---
CARDIO Progress Notes Date and Time Date of Service 10/23/2016 Time of Evaluation 0920 Subjective Subjective: No Chest Pain, No shortness of breath, No Palpitations, No Dizziness, Other (surgical pain controlled; tolerated increased activity via rehab) Vitals Vitals Vital Signs Date Time Temp Pulse Resp B/P Pulse Ox O2 Delivery O2 Flow Rate FiO2 10/23/16 08:00 Room Air 10/23/16 08:00 97.4 69 16 98/42 96 97.4 10/23/16 00:19 2.0 Weight Weight [ ] Input and Output Intake and Output Intake and Output 10/23/16 07:00 Intake Total 7289 ml Output Total 960 ml Balance 6329 ml Intake Oral 1280 ml IV Total 6009 ml Output Urine Total 885 ml Drainage Total 75 ml # Bowel Movements 8 Laboratory Labs Laboratory Tests Test 10/22/16 13:23 10/22/16 15:15 10/22/16 17:56 10/22/16 23:20 Glucose (Fingerstick) 262mg/dL (70-99) 359mg/dL (70-99) 478mg/dL (70-99) Vancomycin Level Trough 11.9mcg/mL (10.0-20.0) Vancomycin Last Dose Date 10/21/16 Vancomycin Last Dose Time 1600 Test 10/23/16 02:29 10/23/16 05:23 Glucose (Fingerstick) 389mg/dL (70-99) White Blood Count 7.1x10^3/uL (4.0-11.0) Red Blood Count 3.71x10^6/uL (4.30-5.70) Hemoglobin 10.5g/dL (13.0-17.5) Hematocrit 31.8% (39.0-53.0) Mean Corpuscular Volume 86fL (79-100) Mean Corpuscular Hemoglobin 28pg (25-35) Mean Corpuscular Hemoglobin Concent 33g/dL (31-37) Red Cell Distribution Width 14.4% (11.5-14.5) Platelet Count 84x10^3/uL (140-400) Neutrophils (%) (Auto) 88% (31-73) Lymphocytes (%) (Auto) 5% (24-48) Monocytes (%) (Auto) 7% (0-9) Eosinophils (%) (Auto) 0% (0-3) Basophils (%) (Auto) 0% (0-3) Neutrophils # (Auto) 6.3x10^3uL (1.8-7.7) Lymphocytes # (Auto) 0.3x10^3/uL (1.0-4.8) Monocytes # (Auto) 0.5x10^3/uL (0.0-1.1) Eosinophils # (Auto) 0.0x10^3/uL (0.0-0.7) Basophils # (Auto) 0.0x10^3/uL (0.0-0.2) Sodium Level 133mmol/L (136-145) Potassium Level 3.9mmol/L (3.5-5.1) Chloride Level 101mmol/L (98-107) Carbon Dioxide Level 18mmol/L (21-32) Anion Gap 14 (6-14) Blood Urea Nitrogen 58mg/dL (8-26) Creatinine 3.7mg/dL (0.7-1.3) Estimated GFR (Cockcroft-Gault) 16.3 Glucose Level 392mg/dL (70-99) Calcium Level 7.5mg/dL (8.5-10.1) Phosphorus Level 4.2mg/dL (2.6-4.7) Magnesium Level 2.4mg/dL (1.8-2.4) Albumin 1.6g/dL (3.4-5.0) Microbiology Micro Microbiology 10/20/16 Blood Culture - Preliminary, Resulted 10/20/16 Blood Culture Result 1 (HERBERT) - Preliminary, Resulted 10/21/16 Urine Culture - Preliminary, Resulted 10/21/16 Urine Culture Result 1 (HERBERT) - Preliminary, Resulted 10/22/16 Gram Stain - Final, Complete Physical Exam HEENT: Neck Supple W Full Motion Chest: Symmetric LUNGS: Other (basilar crackles; upper rhonchi) Heart: S1S2, RRR Abdomen: Soft N/T Extremities: No Calf Tenderness, Other (LLE with swelling and erythema- s/p I & D with VAC to left foot; 2+ LLE edema 1+ to RLE) Neurology: alert, oriented, follow commands Assessment Assessment 1. PAFIB with RVR: new onset. Likely induced by infectious process/fluid shifts. Now back on SR. 2. Sepsis/bacteremia with likely L foot osteomyelitis: S/P I & D POD#1 doing well 3. Hypotension: BP controlled 4. RHETT: Cr worse at 3.7 5. DM2 with DPN: uncontrolled, A1C 9. Noted hypoglycemia today at 37. 6. Coagulopathy: INR 1.4. Malnutrition/lack Vit K? liver disease? 7. Protein malnutrition: alb 1.4 8. Deconditioning/fatigue 9. Hx of orthostasis 10. Suspect poor compliance 11. Known RLE PAD: no complains of claudications 12. Pneumonia? Recommendations 1. HD cath placed, dialysis pending 2. Will start on cardizem CD 120 mg. Stop IR. Metoprolol IV PRN for refractory RVR 3. Continue ASA for stroke prevention for now. Future consideration for OAC/ NOAC pending clearance from ortho and afib burden with outpt event monitoring 4. Will also consider for stress test as an outpt for further risk stratification given his significant cardiac risk factors 5. EKG today ROSAS SCHNEIDER APRN Oct 23, 2016 10:06
--- NOTE | 2016-10-23 11:33 | EKG ---
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
--- NOTE | 2016-10-23 13:53 | PDOC2 ---
GI CONSULT Reason For Consult: Diarrhea HPI: HPI: 71 y/o evaluated in ER 10/20/16 for weakness, admitted w/ sepsis, left foot osteomyelitis, and acute renal failure. Is s/p I&D and placement of temporary dialysis catheter. Cardiology following w/ A Fib. GI consulted re: diarrhea. Per RN, was having 1-2 stools after every meal. Yesterday tried Imodium which has helped - no stools today. Per pt, diarrhea started several weeks ago. He was constipated and took laxatives resulting in persistent diarrhea (watery brown stools). At one point was having 1 stool an hour. Admits to improvement now. He reports a h/o intermittent diarrhea about every 2 months that's resolved "with about half a bottle of Pepto." No abd pain, no bleeding. Some nausea w/o vomiting. Denies h/o GERD. No previous EGD or colonoscopy. PMH: PMH: HTN, PAD, peripheral neuropathy, OA, osteomyelitis, MSSA sepsis, DM, TMA FH: Family History: Cancer (father - stomach), CAD, DM Social History: Smoke: Quit (cigars in the past) ALCOHOL: none Drugs: None ROS: GEN: Denies fevers, chills, sweats HEENT: Denies blurred vision, sore throat CV: Denies chest pain RESP: Denies shortness of air, cough GI: Per HPI : Denies hematuria, dysuria ENDO: Denies weight changes NEURO: Denies confusion, dizziness MSK: Denies weakness, joint pain/swelling SKIN: Denies jaundice, pruritus VItals: Vitals: Vital Signs Date Time Temp Pulse Resp B/P Pulse Ox O2 Delivery O2 Flow Rate FiO2 10/23/16 12:39 97.5 71 16 132/65 96 Room Air 97.5 10/23/16 00:19 2.0 Labs: Labs: Laboratory Tests Test 10/22/16 15:15 10/22/16 17:56 10/22/16 23:20 10/23/16 02:29 Vancomycin Level Trough 11.9mcg/mL (10.0-20.0) Vancomycin Last Dose Date 10/21/16 Vancomycin Last Dose Time 1600 Glucose (Fingerstick) 359mg/dL (70-99) 478mg/dL (70-99) 389mg/dL (70-99) Test 10/23/16 05:23 10/23/16 09:33 10/23/16 11:03 10/23/16 12:06 White Blood Count 7.1x10^3/uL (4.0-11.0) Red Blood Count 3.71x10^6/uL (4.30-5.70) Hemoglobin 10.5g/dL (13.0-17.5) Hematocrit 31.8% (39.0-53.0) Mean Corpuscular Volume 86fL (79-100) Mean Corpuscular Hemoglobin 28pg (25-35) Mean Corpuscular Hemoglobin Concent 33g/dL (31-37) Red Cell Distribution Width 14.4% (11.5-14.5) Platelet Count 84x10^3/uL (140-400) Neutrophils (%) (Auto) 88% (31-73) Lymphocytes (%) (Auto) 5% (24-48) Monocytes (%) (Auto) 7% (0-9) Eosinophils (%) (Auto) 0% (0-3) Basophils (%) (Auto) 0% (0-3) Neutrophils # (Auto) 6.3x10^3uL (1.8-7.7) Lymphocytes # (Auto) 0.3x10^3/uL (1.0-4.8) Monocytes # (Auto) 0.5x10^3/uL (0.0-1.1) Eosinophils # (Auto) 0.0x10^3/uL (0.0-0.7) Basophils # (Auto) 0.0x10^3/uL (0.0-0.2) Sodium Level 133mmol/L (136-145) Potassium Level 3.9mmol/L (3.5-5.1) Chloride Level 101mmol/L (98-107) Carbon Dioxide Level 18mmol/L (21-32) Anion Gap 14 (6-14) Blood Urea Nitrogen 58mg/dL (8-26) Creatinine 3.7mg/dL (0.7-1.3) Estimated GFR (Cockcroft-Gault) 16.3 Glucose Level 392mg/dL (70-99) Calcium Level 7.5mg/dL (8.5-10.1) Phosphorus Level 4.2mg/dL (2.6-4.7) Magnesium Level 2.4mg/dL (1.8-2.4) Albumin 1.6g/dL (3.4-5.0) Glucose (Fingerstick) 331mg/dL (70-99) 318mg/dL (70-99) 298mg/dL (70-99) Allergies: Coded Allergies: Tetanus Vaccines and Toxoid (Verified Allergy, Intermediate, 10/20/16) Medications: Current Medications Medications (Trade) Dose Ordered Sig/Salena Route PRN Reason Start Time Stop Time Status Last Admin Dose Admin Heparin Sodium (Porcine) 5,000 unit Q12HR SQ 10/22/16 21:00 10/23/16 09:28 Loperamide HCl (Imodium) 2 mg PRN Q15MIN PRN PO DIARRHEA 10/22/16 20:00 10/23/16 09:27 Insulin Detemir (Levemir) 10 units 1X ONCE SQ 10/22/16 23:45 10/22/16 23:46 DC 10/22/16 23:53 Insulin Human Regular 10 unit 10 unit 1X ONCE IV 10/23/16 00:00 10/23/16 00:01 DC 10/23/16 00:09 Sodium Chloride 38.75 meq/Sodium Bicarbonate 75 meq/Sterile Water 1,084.6875 ml @ 150 mls/hr CONT PRN IV SEE I/O RECORD 10/23/16 07:30 10/23/16 09:29 Albumin Human (Albuminar) 100 ml @ 100 mls/hr TID IV 10/23/16 09:00 10/24/16 21:59 10/23/16 09:27 Insulin Aspart (Novolog) 10 units TIDAC SQ 10/23/16 11:30 10/23/16 12:25 Insulin Detemir (Levemir) 30 units DAILY08 SQ 10/23/16 08:30 10/23/16 09:55 Lidocaine/Sodium Bicarbonate (Buffered Lidocaine 1%) 3 ml 1X ONCE IJ 10/23/16 08:30 10/23/16 08:31 DC 10/23/16 08:48 Heparin Sodium/ Sodium Chloride 60 unit 1X ONCE IV 10/23/16 08:30 10/23/16 08:31 DC 10/23/16 08:48 Heparin Sodium (Porcine) 2,500 unit 1X ONCE INT CAT 10/23/16 08:30 10/23/16 08:31 DC 10/23/16 08:48 Imaging: Imaging: CXR 10/20/16 IMPRESSION: 1. Mild right infrahilar airspace opacity. Correlate for mild right middle lobe or right lower lobe pneumonia. Echocardiogram 10/21/16 <Conclusion> The left ventricle is normal size. The left ventricular systolic function is normal and the ejection fraction is within normal range. The Ejection Fraction 55-60%. There is no significant aortic valvular stenosis. Doppler and Color Flow revealed no significant aortic regurgitation. Doppler and Color Flow revealed trace mitral regurgitation. Doppler and Color Flow revealed trace tricuspid regurgitation. The pulmonary artery systolic pressure is estimated at 27 mmHg. Left Foot X-Ray 10/21/16 Impression: Postsurgical changes are seen involving the left foot. Soft tissue swelling surrounds the distal aspect of the left foot. Bony irregularity is seen in this region which could reflect surgical changes; however, osteomyelitis is not excluded. Renal US 10/21/16 IMPRESSION: 1. Mildly increased renal cortical echogenicity on the right. Correlate for intrinsic renal disease. 2. Normal size kidneys. No hydronephrosis. CXR 10/23/16 IMPRESSION: 1. Interval insertion of a right dialysis type catheter extending into the right atrium. 2. Worsening bilateral pulmonary infiltrates suggesting pneumonia. Pulmonary edema is less likely. PE: GEN: NAD, in recliner, pleasant HEENT: Atraumatic, PERRL LUNGS: decreased anteriorly w/ crackles HEART: irregularly irregular ABD: NABS, S/ND/NT EXTREMITY: bilateral TMA NEURO/PSYCH: A & O 3 A/P: A/P: Diarrhea - better -post-prandial watery stools, C Diff neg -started Imodium last night w/ improvement today -pt reports 3 week history, began after taking laxatives for constipation -additional h/o intermittent diarrhea improved w/ Pepto-Bismol Nausea -w/o vomiting -denies GERD, does have uncontrolled DM Sepsis, left foot infection s/p I&D Acute renal failure A Fib ?pneumonia CRC screen -no previous -- Seems was gradually improving - more so w/ addition of Imodium. Will review w/ Dr. Lemus. DOROTHY SHANNON Oct 23, 2016 13:53
--- NOTE | 2016-10-23 14:28 | RAD ---
Bedside ultrasound-guided right IJ temporary hemodialysis catheter insertion Indication: 71-year-old male ICU patient with acute renal failure. Temporary dialysis catheter insertion has been requested by renal. Anesthesia: Local only Sterility: All elements of maximal sterile barrier technique, including the use of a cap, mask, sterile gown, sterile gloves, large sterile sheet, appropriate hand hygiene, and 2% chlorhexidine for cutaneous antisepsis (or acceptable alternative antiseptic per current guidelines) were utilized. Procedure: Informed consent was obtained from the patient. This procedure was performed bedside in ICU. Preliminary ultrasound examination of right neck revealed wide patency of right internal jugular vein, which was documented with a single hard copy ultrasound image. Right neck was then prepped and draped in the usual sterile fashion, utilizing all elements of maximal sterile barrier technique, as described above. Using aseptic technique, local anesthesia, direct ultrasound guidance, and the micropuncture system, successful percutaneous entry was achieved into right internal jugular vein. The right IJ venostomy tract was then dilated and a 14 [place] 20 cm temporary hemodialysis catheter was easily advanced centrally over an angiographic guidewire. The catheter was documented to flush and aspirate normally, was packed, and was secured at the right neck exit site utilizing suture and sterile dressing. Patient tolerated the procedure well without apparent complication. A stat portable chest x-ray was requested for line position. Impression: Successful, uneventful ultrasound guided placement of right IJ 14 [place] 20 cm temporary hemodialysis catheter, bedside in ICU, as described.
[2016-10-23] MEDS: ATORVASTATIN CALCIUM 20 MG TABLET PO SCH (21:24)
[2016-10-24] VITALS (18 sets, daily range): BP systolic 131–168; BP diastolic 46–73
[2016-10-24] MEDS: PIPERACILLIN/TAZOBACTAM 2.25 GM in IV NORMAL SALINE 50ML 50 ML IV SCH ×5 (00:40→23:31)
[2016-10-24] MEDS: DILTIAZEM HCL 30 MG TABLET PO SCH ×5 (00:41→23:31)
[2016-10-24] MEDS: HYDROCODONE/APAP 7.5/325MG TABLET. PO PRN ×2 (06:28→23:37)
[2016-10-24] MEDS: DEXTROSE 50% 25 GM / 50ML DISP.SYRIN. IV PRN (07:11)
[2016-10-24] MEDS: SODIUM BICARBONATE IV PRN (07:12)
[2016-10-24] MEDS: STERILE WATER IV PRN (07:12)
[2016-10-24] MEDS: SODIUM CHLORIDE IV PRN (07:12)
[2016-10-24] MEDS: INSULIN ASPART 300 UNITS/3 ML INSULN.PEN SQ SCH ×6 (07:30→17:00)
[2016-10-24 07:48] LABS: ALBUMIN 2.4 g/dL (3.4-5.0); CALCIUM 8.1 mg/dL (8.5-10.1); CREATININE 3.6 mg/dL (0.7-1.3); GFR 16.8; PHOSPHORUS 3.3 mg/dL (2.6-4.7); POTASSIUM 3.2 mmol/L (3.5-5.1)
[2016-10-24] MEDS: INSULIN DETEMIR 300 UNITS/3 ML INSULN.PEN. SQ SCH (08:00)
[2016-10-24] MEDS: ASPIRIN ENTERIC COATED 81 MG TABLET.DR. PO SCH (08:59)
[2016-10-24] MEDS: ALBUMIN HUMAN 25% 100 ML IV SCH ×3 (09:00→21:23)
[2016-10-24] MEDS ORDERED: IPRATRPIUM/ALBUTEROL 0.5/2.5MG 3 ML NEBU. NEB ONE (09:00)
[2016-10-24] MEDS: HEPARIN PF for SUB-Q USE 5,000 UNIT/0.5 ML VIAL. SQ SCH ×2 (09:03→21:29)
[2016-10-24] MEDS: DOCUSATE SODIUM 100 MG CAPSULE PO SCH ×2 (09:06→21:24)
[2016-10-24] MEDS: BUDESONIDE 0.5 MG/2 ML NEBU NEB SCH ×2 (09:11→20:12)
[2016-10-24 10:05] LABS: HCO3 ABG 20 mmol/L (21-28); PCO2 ABG 40 mmHg (35-46); PH ABG 7.31 (7.35-7.45); PO2 ABG 94 mmHg (65-108); SAT O2 ABG 97 % (92-99)
[2016-10-24 10:07] LABS: FIO2 ABG 100
--- NOTE | 2016-10-24 10:08 | PDOC ---
Provider Note Provider Note dictated hypoxic RF due to worsening CHF Needs HD monica ABG bipap TRNASFER TO ICU IRVIN PERALTA MD Oct 24, 2016 10:08
--- NOTE | 2016-10-24 10:38 | CONS ---
DATE OF CONSULTATION: ATTENDING PHYSICIAN: Dr. Simmons. REASON FOR CONSULTATION: Respiratory failure and severe hypoxia. HISTORY OF PRESENT ILLNESS: The patient is a 71-year-old male, who has a history of tobacco use, history of hypertension. He was brought into the hospital with progressive weakness. He was also noted to have lactic acid of 5.9 with a normal WBC, no fevers at home. He had bad wound on the left foot. He has a history of left toe amputations. The patient has been noted to have progressive dyspnea and hypoxia. He initially was on Ventimask and now requiring 100% nonrebreather mask with saturations in the high 90s. He has been afebrile. He has been having audible wheezes and coarse breath sounds. I reviewed the patient's chest x-ray. He has diffuse interstitial infiltrates. This was a film done yesterday. However, I have ordered another chest x-ray today. Consultation requested for further evaluation and management. The patient has a hemodialysis catheter just placed and is in the process of getting dialyzed. I would recommend he should be dialyzed immediately. His BUN is 59 and creatinine 3.6. His blood sugars were running low in the 30s and now is 142. The patient also has a wound VAC. He has received IV fluids, which will be stopped. He is on broad spectrum antibiotic, Zosyn. Consultation requested for further evaluation and management. PAST MEDICAL HISTORY: Significant for 1. History of RHETT on CKD. 2. History of COPD, unknown FEV1. 3. History of left toe amputation. 4. History of diabetes. 5. History of osteomyelitis. 6. History of systemic hypertension. PAST SURGICAL HISTORY: Left toe amputation. FAMILY HISTORY: Hypertension. SOCIAL HISTORY: Smoked for about 30+ years, recently quit. ALLERGIES: TETANUS AND TOXOID. MEDICATIONS: Reviewed as listed in the MRAD. REVIEW OF SYSTEMS: Twelve-point systems obtained. Pertinent positives discussed in my history of present illness, otherwise noncontributory. All systems that were negative were reviewed as well. PHYSICAL EXAMINATION: GENERAL: He appears lethargic. VITAL SIGNS: Blood pressure is 143/68, pulse ox is 97% on nonrebreather mask. HEENT: Sclerae nonicteric. NECK: Supple. LUNGS: Coarse breath sounds anteriorly and bilateral wheezing. CARDIOVASCULAR: Regular. ABDOMEN: Soft, nontender. EXTREMITIES: With bilateral pitting edema. He has right leg covered in dressing, left toe amputation and has wound VAC. LABORATORY DATA: Reviewed. His sodium 136, potassium 3.2, BUN 59, creatinine 3.6. INR 1.4. White cell count 7.1, hemoglobin 10.5 and platelets are 84. IMPRESSION: 1. Acute hypoxic respiratory failure with progressive hypoxia since last 24 hours and along with worsening bilateral interstitial infiltrates. I suspect that this is related to acute congestive heart failure, most likely diastolic and in addition contributed by progressive renal failure and IV bicarb drip 2. Clinically, less likely pneumonia. 3. Underlying chronic obstructive pulmonary disease. 4. Abnormal chest x-ray with diffuse interstitial infiltrates, more compatible with congestive heart failure. 5. Acute kidney injury on chronic kidney disease. Needs immediate dialysis. 6. Hypoglycemia, now being corrected. 7. Normal ejection fraction on recent echo. RECOMMENDATIONS: 1. Obtain ABGs stat. 2. Continue nonrebreather mask. He may use BiPAP. 3. Immediate hemodialysis. 4. Repeat chest x-ray 5. Continue bronchodilators. 6. Continue antibiotics. 7. Monitor blood sugars. 8. transfer the patient to the ICU. 9. Discussed with RN and RT and Dr Calderon Critical care time 39 minutes. IRVIN PERALTA MD DR: SELINA/brenda JOB#: [id number] / [id number] MILO
--- NOTE | 2016-10-24 10:44 | RAD ---
Exam performed: One view chest. History: Worsening CHF. Date of service: 10/24/16. Comparison: 10/23/16. Single AP upright portable view chest findings: Heart size and mediastinal silhouette is within limits of normal. There is interval development of diffuse bilateral airspace and interstitial opacities with small bilateral pleural effusions. There is a right-sided central line in place. Impression: Significant interval worsening of diffuse interstitial and airspace opacities and development of small bilateral pleural effusions. The constellation of findings reflect worsening infiltrates or CHF. Correlate clinically
--- NOTE | 2016-10-24 11:43 | PDOC ---
PROGRESS NOTES Chief Complaint Chief Complaint hypoxia this AM, transferred to ICU, pt seen with BiPAP on and feels better 1. Left foot osteomyelitis 2. DM 2 uncontrolled, hypoglycemia yesterday, now elevated, 3. HTN 4 Atrial fib 5. Sepsis infectious 6. RHETT, vasomotor, cont IV fluids 7 Acute diarrhea 8, Mild thrombocytopenia 9 met acidosis 10. Mod.severe malnutrition, POA History of Present Illness History of Present Illness hypertensive, CHF, rales, dyspnea consider urgent HD pt feels better with Bipap restarted insulin at home dose without PO meds, and again hypoglycemic, decrease doses by half, he reports very brittle control at home broad IV abx s/p surg Vitals Vitals Vital Signs Date Time Temp Pulse Resp B/P Pulse Ox O2 Delivery O2 Flow Rate FiO2 10/24/16 09:14 75 Nasal Cannula 5.0 10/24/16 07:35 18 10/24/16 07:00 97.9 92 160/67 97.9 Physical Exam General: Alert, Oriented X3, Cooperative, moderate distress, severe distress Heart: Normal S1, Normal S2, Other (2/6 systolic murmur to LLS border; AFIB) Lungs: Clear, Wheezing Abdomen: Soft, No tenderness Extremities: No clubbing, No cyanosis Skin: No rashes, Other (left foot wound) Labs LABS Laboratory Tests Test 10/23/16 12:06 10/23/16 14:09 10/23/16 17:21 10/23/16 20:42 Glucose (Fingerstick) 298mg/dL (70-99) 245mg/dL (70-99) 222mg/dL (70-99) 83mg/dL (70-99) Test 10/24/16 06:51 10/24/16 06:52 10/24/16 07:06 10/24/16 07:08 Sodium Level 136mmol/L (136-145) Potassium Level 3.2mmol/L (3.5-5.1) Chloride Level 102mmol/L (98-107) Carbon Dioxide Level 24mmol/L (21-32) Anion Gap 10 (6-14) Blood Urea Nitrogen 59mg/dL (8-26) Creatinine 3.6mg/dL (0.7-1.3) Estimated GFR (Cockcroft-Gault) 16.8 Glucose Level 43mg/dL (70-99) Calcium Level 8.1mg/dL (8.5-10.1) Phosphorus Level 3.3mg/dL (2.6-4.7) Albumin 2.4g/dL (3.4-5.0) Magnesium Level 2.4mg/dL (1.8-2.4) Glucose (Fingerstick) 36mg/dL (70-99) 38mg/dL (70-99) Test 10/24/16 07:17 10/24/16 10:00 Glucose (Fingerstick) 142mg/dL (70-99) O2 Saturation 97% (92-99) Arterial Blood pH 7.31 (7.35-7.45) Arterial Blood pCO2 at Patient Temp 40mmHg (35-46) Arterial Blood pO2 at Patient Temp 94mmHg (65-108) Arterial Blood HCO3 20mmol/L (21-28) Arterial Blood Base Excess -6mmol/L (-3-3) FiO2 100 Review of Systems Review of Systems dyspnea weakness no stool Assessment and Plan Assessmemt and Plan Problems Medical Problems: (1) Acute renal failure Status: Acute (2) Atrial fibrillation with RVR Status: Acute (3) Lactic acidosis Status: Acute (4) Severe sepsis Status: Acute (5) Uncontrolled diabetes mellitus Status: Acute Problems: Comment Review of Relevant I have reviewed the following items jovan (where applicable) has been applied. Labs Laboratory Tests Test 10/22/16 13:23 10/22/16 15:15 10/22/16 17:56 10/22/16 23:20 Glucose (Fingerstick) 262mg/dL (70-99) 359mg/dL (70-99) 478mg/dL (70-99) Vancomycin Level Trough 11.9mcg/mL (10.0-20.0) Vancomycin Last Dose Date 10/21/16 Vancomycin Last Dose Time 1600 Test 10/23/16 02:29 10/23/16 05:23 10/23/16 09:33 10/23/16 11:03 Glucose (Fingerstick) 389mg/dL (70-99) 331mg/dL (70-99) 318mg/dL (70-99) White Blood Count 7.1x10^3/uL (4.0-11.0) Red Blood Count 3.71x10^6/uL (4.30-5.70) Hemoglobin 10.5g/dL (13.0-17.5) Hematocrit 31.8% (39.0-53.0) Mean Corpuscular Volume 86fL (79-100) Mean Corpuscular Hemoglobin 28pg (25-35) Mean Corpuscular Hemoglobin Concent 33g/dL (31-37) Red Cell Distribution Width 14.4% (11.5-14.5) Platelet Count 84x10^3/uL (140-400) Neutrophils (%) (Auto) 88% (31-73) Lymphocytes (%) (Auto) 5% (24-48) Monocytes (%) (Auto) 7% (0-9) Eosinophils (%) (Auto) 0% (0-3) Basophils (%) (Auto) 0% (0-3) Neutrophils # (Auto) 6.3x10^3uL (1.8-7.7) Lymphocytes # (Auto) 0.3x10^3/uL (1.0-4.8) Monocytes # (Auto) 0.5x10^3/uL (0.0-1.1) Eosinophils # (Auto) 0.0x10^3/uL (0.0-0.7) Basophils # (Auto) 0.0x10^3/uL (0.0-0.2) Sodium Level 133mmol/L (136-145) Potassium Level 3.9mmol/L (3.5-5.1) Chloride Level 101mmol/L (98-107) Carbon Dioxide Level 18mmol/L (21-32) Anion Gap 14 (6-14) Blood Urea Nitrogen 58mg/dL (8-26) Creatinine 3.7mg/dL (0.7-1.3) Estimated GFR (Cockcroft-Gault) 16.3 Glucose Level 392mg/dL (70-99) Calcium Level 7.5mg/dL (8.5-10.1) Phosphorus Level 4.2mg/dL (2.6-4.7) Magnesium Level 2.4mg/dL (1.8-2.4) Albumin 1.6g/dL (3.4-5.0) Test 10/23/16 12:06 10/23/16 14:09 10/23/16 17:21 10/23/16 20:42 Glucose (Fingerstick) 298mg/dL (70-99) 245mg/dL (70-99) 222mg/dL (70-99) 83mg/dL (70-99) Test 10/24/16 06:51 10/24/16 06:52 10/24/16 07:06 10/24/16 07:08 Sodium Level 136mmol/L (136-145) Potassium Level 3.2mmol/L (3.5-5.1) Chloride Level 102mmol/L (98-107) Carbon Dioxide Level 24mmol/L (21-32) Anion Gap 10 (6-14) Blood Urea Nitrogen 59mg/dL (8-26) Creatinine 3.6mg/dL (0.7-1.3) Estimated GFR (Cockcroft-Gault) 16.8 Glucose Level 43mg/dL (70-99) Calcium Level 8.1mg/dL (8.5-10.1) Phosphorus Level 3.3mg/dL (2.6-4.7) Albumin 2.4g/dL (3.4-5.0) Magnesium Level 2.4mg/dL (1.8-2.4) Glucose (Fingerstick) 36mg/dL (70-99) 38mg/dL (70-99) Test 10/24/16 07:17 10/24/16 10:00 Glucose (Fingerstick) 142mg/dL (70-99) O2 Saturation 97% (92-99) Arterial Blood pH 7.31 (7.35-7.45) Arterial Blood pCO2 at Patient Temp 40mmHg (35-46) Arterial Blood pO2 at Patient Temp 94mmHg (65-108) Arterial Blood HCO3 20mmol/L (21-28) Arterial Blood Base Excess -6mmol/L (-3-3) FiO2 100 Laboratory Tests Test 10/23/16 12:06 10/23/16 14:09 10/23/16 17:21 10/23/16 20:42 Glucose (Fingerstick) 298mg/dL (70-99) 245mg/dL (70-99) 222mg/dL (70-99) 83mg/dL (70-99) Test 10/24/16 06:51 10/24/16 06:52 10/24/16 07:06 10/24/16 07:08 Sodium Level 136mmol/L (136-145) Potassium Level 3.2mmol/L (3.5-5.1) Chloride Level 102mmol/L (98-107) Carbon Dioxide Level 24mmol/L (21-32) Anion Gap 10 (6-14) Blood Urea Nitrogen 59mg/dL (8-26) Creatinine 3.6mg/dL (0.7-1.3) Estimated GFR (Cockcroft-Gault) 16.8 Glucose Level 43mg/dL (70-99) Calcium Level 8.1mg/dL (8.5-10.1) Phosphorus Level 3.3mg/dL (2.6-4.7) Albumin 2.4g/dL (3.4-5.0) Magnesium Level 2.4mg/dL (1.8-2.4) Glucose (Fingerstick) 36mg/dL (70-99) 38mg/dL (70-99) Test 10/24/16 07:17 10/24/16 10:00 Glucose (Fingerstick) 142mg/dL (70-99) O2 Saturation 97% (92-99) Arterial Blood pH 7.31 (7.35-7.45) Arterial Blood pCO2 at Patient Temp 40mmHg (35-46) Arterial Blood pO2 at Patient Temp 94mmHg (65-108) Arterial Blood HCO3 20mmol/L (21-28) Arterial Blood Base Excess -6mmol/L (-3-3) FiO2 100 Microbiology 10/20/16 Blood Culture - Final, Complete 10/20/16 Blood Culture Result 1 (HERBERT) - Final, Complete 10/21/16 Urine Culture - Final, Complete 10/21/16 Urine Culture Result 1 (HERBERT) - Final, Complete 10/22/16 Gram Stain - Final, Complete Medications Current Medications Diltiazem HCl 20 mg 20 mg 1X ONCE IVP Last administered on 10/20/16 13:35; Start 10/20/16 at 13:30; Stop 10/20/16 at 13:31; Status DC Diltiazem HCl 125 mg/Dextrose 125 ml @ 10 mls/hr 1X ONCE IV Last administered on 10/20/16 13:49; Start 10/20/16 at 13:30; Stop 10/20/16 at 19:37; Status DC Sodium Chloride (Iv Sodium Chloride 0.9% 1000ml Bag) 1,000 ml @ 100 mls/hr Q10H IV Last administered on 10/20/16 13:45; Start 10/20/16 at 13:30; Stop at 23:29; Status DC Diltiazem HCl (Cardizem) 20 mg 1X ONCE IVP Last administered on 10/20/16 14:16 ; Start 10/20/16 at 14:00; Stop 10/20/16 at 14:01; Status DC Vancomycin HCl (Vanco Per Pharmacy) 1 each PRN DAILY PRN MC SEE COMMENTS Last administered on 10/20/16 16:49; Start 10/20/16 at 14:45; Stop 10/21/16 at 07:42; Status DC Piperacillin Sod/ Tazobactam Sod 1 each 1 each PRN DAILY PRN MC SEE COMMENTS; Start 10/20/16 at 14:45; Stop 10/21/16 at 07:49; Status DC Vancomycin HCl 2 gm/Sodium Chloride 500 ml @ 250 mls/hr 1X ONCE IV Last administered on 10/20/16 15:45; Start 10/20/16 at 15:00; Stop 10/20/16 at 16:59; Status DC Piperacillin Sod/ Tazobactam Sod/ Sodium Chloride (Zosyn/Iv Sodium Chloride 0.9 % 50ml) 50 ml @ 100 mls/hr 1X ONCE IV Last administered on 10/20/16 15:04; Start 10/20/16 at 15:00; Stop 10/20/16 at 15:29; Status DC Ondansetron HCl (Zofran) 4 mg PRN Q8HRS PRN IV NAUSEA/VOMITING; Start 10/20/16 at 15:00; Stop 10/20/16 at 15:16; Status DC Fentanyl Citrate 50 mcg 50 mcg PRN Q2HR PRN IV PAIN; Start 10/20/16 at 15:00; Stop 10/21/16 at 14:59; Status DC Sodium Chloride (Iv Sodium Chloride 0.9% 1000ml Bag) 1,000 ml @ 100 mls/hr Q10H IV Last administered on 10/21/16 11:30; Start 10/20/16 at 15:30; Stop at 15:29; Status DC Acetaminophen (Tylenol) 650 mg PRN Q4HRS PRN PO FEVER; Start 10/20/16 at 15:00; Stop 10/21/16 at 14:59; Status DC Ondansetron HCl (Zofran) 4 mg PRN Q6HRS PRN IV NAUSEA/VOMITING; Start 10/20/16 at 15:12 Insulin Aspart (Novolog) 0-9 UNITS TIDWMEALS SQ Last administered on 10/23/16 17:47; Start 10/20/16 at 17:00 Dextrose 12.5 gm PRN Q15MIN PRN IV SEE COMMENTS Last administered on 10/24/16 07:11; Start 10/20/16 at 15:15 Docusate Sodium (Colace) 100 mg BID PO Last administered on 10/24/16 09:06; Start 10/20/16 at 21:00 Glimepiride (Amaryl) 2 mg BID PO ; Start 10/20/16 at 21:00; Status UNV Acetaminophen/ Hydrocodone Bitart (Lortab 7.5/325) 1 tab PRN Q3HRS PRN PO PAIN Last administered on 10/24/16 06:28; Start 10/20/16 at 15:15 Glimepiride (Amaryl) 4 mg BIDWMEALS PO Last administered on 10/20/16 17:32; Start 10/20/16 at 17:00; Stop 10/21/16 at 14:52; Status DC Insulin Detemir (Levemir) 30 units QHS SQ Last administered on 10/20/16 21:03; Start 10/20/16 at 21:00; Stop 10/21/16 at 14:52; Status DC Ondansetron HCl 4 mg 4 mg Q8HRS PO Last administered on 10/21/16 06:17; Start 10/20/16 at 22:00; Stop 10/21/16 at 17:24; Status DC Sodium Chloride 500 ml @ 500 mls/hr 1X ONCE IV ; Start 10/20/16 at 15:30; Stop 10/20/16 at 16:29; Status DC Piperacillin Sod/ Tazobactam Sod 2.25 gm/Sodium Chloride 50 ml @ 100 mls/hr Q6HRS IV Last administered on 10/24/16 06:29; Start 10/21/16 at 00:00 Vancomycin HCl/ Sodium Chloride (Iv Sodium Chloride 0.9% 250ml) 250 ml @ 167 mls/hr Q24H IV ; Start 10/21/16 at 16:00; Stop 10/21/16 at 16:00; Status DC Vancomycin HCl 1 each 1 each 1X ONCE MC ; Start 10/22/16 at 15:30; Stop 10/22/16 at 15:31; Status Cancel Dopamine HCl/ Dextrose 250 ml @ 13.183 mls/ hr CONT PRN IV SEE I/O RECORD Last administered on 10/20/16 20:38; Start 10/20/16 at 19:30 Digoxin (Lanoxin) 250 mcg 1X ONCE IV Last administered on 10/20/16 21:02; Start 10/20/16 at 20:45; Stop 10/20/16 at 20:46; Status DC Digoxin (Lanoxin) 250 mcg 1X ONCE IV Last administered on 10/21/16 01:48; Start 10/21/16 at 02:00; Stop 10/21/16 at 02:01; Status DC Digoxin 250 mcg 250 mcg 1X ONCE IV Last administered on 10/21/16 04:12; Start 10/21/16 at 04:15; Stop 10/21/16 at 04:16; Status DC Diltiazem HCl 125 mg/Dextrose 125 ml @ 0 mls/hr CONT PRN IV SEE I/O RECORD Last administered on 10/21/16 23:03; Start 10/21/16 at 04:15; Stop 10/22/16 at 09: 44; Status DC Linezolid 300 ml @ 300 mls/hr Q12HR IV Last administered on 10/22/16 20:18; Start 10/21/16 at 09:00; Stop 10/23/16 at 07:26; Status DC Magnesium Sulfate/ Dextrose 50 ml @ 25 mls/hr PRN DAILY PRN IV for Mag < 1.7 on am labs Last administered on 10/22/16 15:15; Start 10/21/16 at 09:45 Albumin Human (Plasmanate) 500 ml @ 125 mls/hr 1X ONCE IV Last administered on 10/21/16 10:25; Start 10/21/16 at 09:45; Stop 10/21/16 at 13:44; Status DC Ondansetron HCl (Zofran) 4 mg PRN Q6HRS PRN IV Nausea; Start 10/21/16 at 10:00; Stop 10/22/16 at 09:59; Status DC Fentanyl Citrate (Fentanyl 2ml Vial) 25 mcg PRN Q5MIN PRN IV MILD PAIN; Start 10/21/16 at 10:00; Stop 10/22/16 at 09:59; Status DC Fentanyl Citrate (Fentanyl 2ml Vial) 50 mcg PRN Q5MIN PRN IV MODERATE PAIN; Start 10/21/16 at 10:00; Stop 10/22/16 at 09:59; Status DC Morphine Sulfate 1 mg 1 mg PRN Q10MIN PRN IV SEVERE PAIN; Start 10/21/16 at 10: 00; Stop 10/22/16 at 09:59; Status DC Lactated Ringer's (Iv Lactated Ringers) 1,000 ml @ 30 mls/hr Q24H IV ; Start at 09:50; Stop 10/21/16 at 21:49; Status DC Lidocaine HCl 2 ml 1X PRN PRN ID IV START; Start 10/21/16 at 10:00; Stop at 09:59; Status DC Hydromorphone HCl (Dilaudid) 0.5 mg PRN Q10MIN PRN IV SEV PAIN,Second choice; Start 10/21/16 at 10:00; Stop 10/22/16 at 09:59; Status DC Prochlorperazine Edisylate 5 mg 5 mg PACU PRN PRN IV NAUSEA; Start 10/21/16 at 10:00; Stop 10/22/16 at 09:59; Status DC Sodium Chloride (Iv Sodium Chloride 0.9% 500ml Bag) 500 ml @ 0 mls/hr PRN QID PRN IV UO< 30cc/hr over previous 6hrs; Start 10/21/16 at 10:15; Stop 10/21/16 at 17:27; Status DC Ondansetron HCl (Zofran) 4 mg PRN Q6HRS PRN IV Nausea; Start 10/21/16 at 11:30; Stop 10/22/16 at 11:29; Status DC Morphine Sulfate 1 mg 1 mg PRN Q10MIN PRN IV SEVERE PAIN; Start 10/21/16 at 11: 30; Stop 10/22/16 at 11:29; Status DC Lactated Ringer's (Iv Lactated Ringers) 1,000 ml @ 0 mls/hr Q0M IV ; Start 10/21 at 11:19; Stop 10/21/16 at 23:18; Status DC Lidocaine HCl 2 ml 1X PRN PRN ID IV START; Start 10/21/16 at 11:30; Stop at 11:29; Status DC Hydromorphone HCl (Dilaudid) 0.5 mg PRN Q10MIN PRN IV SEV PAIN,Second choice; Start 10/21/16 at 11:30; Stop 10/22/16 at 11:29; Status DC Prochlorperazine Edisylate (Compazine) 5 mg PACU PRN PRN IV NAUSEA; Start at 11:30; Stop 10/22/16 at 11:29; Status DC Atorvastatin Calcium (Lipitor) 20 mg QHS PO Last administered on 10/23/16t 21: 24; Start 10/21/16 at 21:00 Aspirin (Ecotrin) 81 mg DAILYWBKFT PO Last administered on 10/24/16 08:59; Start 10/21/16 at 12:00 Ondansetron HCl (Zofran) 4 mg PRN Q6HRS PRN IV Nausea; Start 10/22/16 at 07:00; Stop 10/23/16 at 06:59; Status DC Morphine Sulfate 1 mg 1 mg PRN Q10MIN PRN IV SEVERE PAIN; Start 10/22/16 at 07: 00; Stop 10/23/16 at 06:59; Status DC Lactated Ringer's (Iv Lactated Ringers) 1,000 ml @ 30 mls/hr Q24H IV ; Start at 07:00; Stop 10/22/16 at 15:07; Status DC Lidocaine HCl 2 ml 1X PRN PRN ID IV START; Start 10/22/16 at 07:00; Stop at 06:59; Status DC Hydromorphone HCl (Dilaudid) 0.5 mg PRN Q10MIN PRN IV SEVERE PAIN, Second choice; Start 10/22/16 at 07:00; Stop 10/23/16 at 06:59; Status DC Prochlorperazine Edisylate (Compazine) 5 mg PACU PRN PRN IV NAUSEA; Start at 07:00; Stop 10/23/16 at 06:59; Status DC Aspirin (Ecotrin) 81 mg DAILYWBKFT PO ; Start 10/22/16 at 08:00; Status UNV Insulin Detemir (Levemir) 20 units QHS SQ ; Start 10/21/16 at 21:00; Stop at 08:29; Status DC Ondansetron HCl 4 mg 4 mg PRN Q8HRS PRN PO NAUSEA; Start 10/22/16 at 14:00 Sodium Chloride 1,000 ml @ 175 mls/hr Q5H43M IV Last administered on 05:30; Start 10/21/16 at 18:00; Stop 10/23/16 at 07:20; Status DC Dextrose 1,000 ml @ 75 mls/hr [id number] IV Last administered on 10/22/16 04:54; Start 10/22/16 at 04:45; Stop 10/22/16 at 15:05; Status DC Bupivacaine HCl (Sensorcaine Mpf 0.5%) 30 ml STK-MED ONCE .ROUTE ; Start at 06:45; Stop 10/22/16 at 06:46; Status DC Lidocaine HCl 20 ml 20 ml STK-MED ONCE .ROUTE ; Start 10/22/16 at 06:46; Stop 10/22/16 at 06:47; Status DC Propofol (Diprivan) 20 ml @ As Directed STK-MED ONCE IV ; Start 10/22/16 at 08:02 ; Stop 10/22/16 at 08:03; Status DC Lidocaine HCl 100 mg STK-MED ONCE .ROUTE ; Start 10/22/16 at 08:02; Stop 10/22/16 at 08:03; Status DC Ondansetron HCl (Zofran) 4 mg STK-MED ONCE .ROUTE ; Start 10/22/16 at 08:31; Stop 10/22/16 at 08:32; Status DC Phenylephrine HCl 1 mg STK-MED ONCE IV ; Start 10/22/16 at 08:31; Stop 10/22/16 at 08:32; Status DC Dexamethasone Sodium Phosphate (Decadron) 20 mg STK-MED ONCE .ROUTE ; Start 10/22 at 08:48; Stop 10/22/16 at 08:49; Status DC Sevoflurane (Ultane) 30 ml STK-MED ONCE IH ; Start 10/22/16 at 08:48; Stop at 08:49; Status DC Diltiazem HCl (Cardizem) 30 mg Q6HRS PO Last administered on 10/24/16 06:29; Start 10/22/16 at 10:00 Metoprolol Tartrate 5 mg 5 mg PRN Q6HRS PRN IVP ELEVATED BP, SEE COMMENTS; Start 10/22/16 at 09:45 Albumin Human (Plasmanate) 500 ml @ 125 mls/hr 1X ONCE IV Last administered on 10/22/16 11:20; Start 10/22/16 at 09:45; Stop 10/22/16 at 13:44; Status DC Info (Anti-Coagulation Monitoring By Pharmacy) 1 each PRN DAILY PRN MC SEE COMMENTS; Start 10/22/16 at 15:15; Status UNV Heparin Sodium (Porcine) 5,000 unit Q12HR SQ Last administered on 10/24/16 09: 03; Start 10/22/16 at 21:00 Loperamide HCl (Imodium) 2 mg PRN Q15MIN PRN PO DIARRHEA Last administered on 09:27; Start 10/22/16 at 20:00 Insulin Human Regular (Novolin R Vial) 10 unit 1X ONCE IV Last administered on 10/22/16 23:52; Start 10/22/16 at 01:00; Stop 10/22/16 at 23:46; Status DC Insulin Detemir (Levemir) 10 units 1X ONCE SQ Last administered on 10/22/16 23 :53; Start 10/22/16 at 23:45; Stop 10/22/16 at 23:46; Status DC Insulin Human Regular 10 unit 10 unit 1X ONCE IV Last administered on 00:09; Start 10/23/16 at 00:00; Stop 10/23/16 at 00:01; Status DC Sodium Chloride 38.75 meq/Sodium Bicarbonate 75 meq/Sterile Water 1,084.6875 ml @ 150 mls/hr CONT PRN IV SEE I/O RECORD Last administered on 10/24/16 07:12; Start 10/23/16 at 07:30 Albumin Human (Albuminar) 100 ml @ 100 mls/hr TID IV Last administered on 10/24 09:00; Start 10/23/16 at 09:00; Stop 10/24/16 at 21:59 Heparin Sodium (Porcine) 10,000 unit STK-MED ONCE .ROUTE ; Start 10/23/16 at 07: 55; Stop 10/23/16 at 07:56; Status DC Lidocaine/Sodium Bicarbonate 20 ml 20 ml STK-MED ONCE IJ ; Start 10/23/16 at 07: 55; Stop 10/23/16 at 07:56; Status DC Heparin Sodium/ Sodium Chloride 500 ml @ As Directed STK-MED ONCE .ROUTE ; Start 10/23/16 at 07:55; Stop 10/23/16 at 07:56; Status DC Insulin Detemir (Levemir) 20 units DAILY08 SQ ; Start 10/23/16 at 08:00; Stop at 08:01; Status DC Insulin Aspart (Novolog) 10 units TIDAC SQ Last administered on 10/23/16 17:46 ; Start 10/23/16 at 11:30; Stop 10/24/16 at 11:12; Status DC Insulin Detemir (Levemir) 30 units DAILY08 SQ Last administered on 10/23/16 09 :55; Start 10/23/16 at 08:30; Stop 10/24/16 at 11:12; Status DC Lidocaine/Sodium Bicarbonate (Buffered Lidocaine 1%) 3 ml 1X ONCE IJ Last administered on 10/23/16 08:48; Start 10/23/16 at 08:30; Stop 10/23/16 at 08:31 ; Status DC Heparin Sodium/ Sodium Chloride 60 unit 1X ONCE IV Last administered on 08:48; Start 10/23/16 at 08:30; Stop 10/23/16 at 08:31; Status DC Heparin Sodium (Porcine) 2,500 unit 1X ONCE INT CAT Last administered on 08:48; Start 10/23/16 at 08:30; Stop 10/23/16 at 08:31; Status DC Albuterol/ Ipratropium (Duoneb) 3 ml RTQID NEB ; Start 10/24/16 at 12:00 Albuterol/ Ipratropium (Duoneb) 3 ml 1X ONCE NEB Last administered on 09:11; Start 10/24/16 at 09:00; Stop 10/24/16 at 09:01; Status DC Budesonide (Pulmicort) 0.5 mg RTBID NEB Last administered on 10/24/16 09:11; Start 10/24/16 at 10:00 Insulin Aspart (Novolog) 7 units TIDAC SQ ; Start 10/24/16 at 11:30 Insulin Detemir (Levemir) 20 units DAILY08 SQ ; Start 10/25/16 at 08:00 Potassium Chloride (Klor-Con) 20 meq 1X ONCE PO ; Start 10/24/16 at 12:00; Stop 10/24/16 at 12:01 Active Scripts Active Reported Zofran Odt (Ondansetron) 8 Mg Tab.rapdis 1 Tab PO Q8HRS Colace (Docusate Sodium) 100 Mg Capsule 1 Cap PO BID Hydrocodone-Apap 7.5-325 (Hydrocodone Bit/Acetaminophen) 1 Each Tablet 1 Tab PO Q3HRS PRN Glimepiride 4 Mg Tablet 1 Tab PO BID Glimepiride 2 Mg Tablet 1 Tab PO BID Levemir (Insulin Detemir) 100 Unit/1 Ml Vial 30 Unit SQ HS Vitals/I & O Vital Sign - Last 24 Hours 10/23/16 10/23/16 10/23/16 10/23/16 12:18 12:39 16:27 17:35 Temp 97.5 98.0 97.5 98.0 Pulse 78 71 67 70 Resp 16 18 B/P 132/65 132/65 136/68 142/63 Pulse Ox 96 96 O2 Delivery Room Air Room Air 10/23/16 10/23/16 10/23/16 10/24/16 19:00 20:00 23:00 00:41 Temp 97.4 97.8 97.4 97.8 Pulse 80 83 83 Resp 18 16 B/P 143/68 139/70 139/70 Pulse Ox 91 89 O2 Delivery Room Air O2 Flow Rate 2.0 10/24/16 10/24/16 10/24/16 10/24/16 03:00 06:28 06:29 07:00 Temp 97.7 97.9 97.7 97.9 Pulse 86 86 92 Resp 20 20 B/P 137/62 137/62 160/67 Pulse Ox 91 91 98 O2 Delivery Room Air Room Air O2 Flow Rate 2.0 10/24/16 10/24/16 07:35 09:14 Resp 18 Pulse Ox 90 75 O2 Delivery Nasal Cannula Nasal Cannula O2 Flow Rate 2.0 5.0 Intake and Output 10/23/16 10/23/16 10/24/16 15:00 23:00 07:00 Intake Total 480 ml 1244.6875 ml 50 ml Output Total 250 ml 350 ml 1000 ml Balance 230 ml 894.6875 ml -950 ml BEKA CARRION MD Oct 24, 2016 11:43
[2016-10-24] MEDS ORDERED: POTASSIUM CHLORIDE 20 MEQ TABLET.ER. PO ONE ×2 (12:00→18:30)
[2016-10-24] MEDS: IPRATRPIUM/ALBUTEROL 0.5/2.5MG 3 ML NEBU. NEB SCH ×3 (12:05→20:12)
--- NOTE | 2016-10-24 12:35 | PDOC ---
Infectious Disease Note Subjective Subjective SOA earlier but now feeling the best he has in days. Foot ok ROS ROS GEN: Denies fevers, chills, sweats HEENT: Denies blurred vision, sore throat CV: Denies chest pain RESP: Denies shortness of air, cough GI: Denies n/v/d NEURO: Denies confusion, dizziness MSK: Denies weakness, joint pain/swelling Vital Sign Vital Signs Vital Signs Date Time Temp Pulse Resp B/P Pulse Ox O2 Delivery O2 Flow Rate FiO2 10/24/16 12:10 100 BiPAP/CPAP 10/24/16 11:45 74 23 131/46 10/24/16 11:00 97.1 97.1 10/24/16 09:14 5.0 Physical Exam PHYSICAL EXAM GENERAL: NAD, Alert on Bipap HEENT: PERRL, NECK: Supple, no JVD, no LN LUNGS: Clear HEART: S1S2, no gallop, no murmur ABD: Soft, NT, no organomegaly, no rebound EXT: No edema, no cyanosis/vac to LEFT LE/foot PRACTICAL NURSE: Alert, oriented x 3, no focal neurologic deficit SKIN: No rash IV: HD Labs Lab Laboratory Tests Test 10/23/16 14:09 10/23/16 17:21 10/23/16 20:42 10/24/16 06:51 Glucose (Fingerstick) 245mg/dL (70-99) 222mg/dL (70-99) 83mg/dL (70-99) Sodium Level 136mmol/L (136-145) Potassium Level 3.2mmol/L (3.5-5.1) Chloride Level 102mmol/L (98-107) Carbon Dioxide Level 24mmol/L (21-32) Anion Gap 10 (6-14) Blood Urea Nitrogen 59mg/dL (8-26) Creatinine 3.6mg/dL (0.7-1.3) Estimated GFR (Cockcroft-Gault) 16.8 Glucose Level 43mg/dL (70-99) Calcium Level 8.1mg/dL (8.5-10.1) Phosphorus Level 3.3mg/dL (2.6-4.7) Albumin 2.4g/dL (3.4-5.0) Test 10/24/16 06:52 10/24/16 07:06 10/24/16 07:08 10/24/16 07:17 Magnesium Level 2.4mg/dL (1.8-2.4) Glucose (Fingerstick) 36mg/dL (70-99) 38mg/dL (70-99) 142mg/dL (70-99) Test 10/24/16 10:00 O2 Saturation 97% (92-99) Arterial Blood pH 7.31 (7.35-7.45) Arterial Blood pCO2 at Patient Temp 40mmHg (35-46) Arterial Blood pO2 at Patient Temp 94mmHg (65-108) Arterial Blood HCO3 20mmol/L (21-28) Arterial Blood Base Excess -6mmol/L (-3-3) FiO2 100 Objective Assessment SOA - ? Fluid Hypoglycemia Extensive left foot infection s/p I and D 10/[address] Septic shock Lactic acidosis DM BC + ,Group A strep Plan Plan of Care Cont zosyn Local wound care F/u labs supportive care D/w CADY Garcia MD Oct 24, 2016 12:35
[2016-10-24] MEDS ORDERED: IV NORMAL SALINE 1000ML BAG 1,000 ML IV PRN (13:00)
[2016-10-24] MEDS ORDERED: ACETAMINOPHEN 500 MG TABLET PO PRN (14:00)
[2016-10-24] MEDS ORDERED: ALBUMIN HUMAN 25% 200 ML IV PRN (14:00)
[2016-10-24] MEDS ORDERED: DIALYSIS PATIENT. MC PRN (14:00)
[2016-10-24] MEDS ORDERED: DIPHENHYDRAMINE 50 MG/ML VIAL IV PRN ×2 (14:00)
[2016-10-24] MEDS: ATORVASTATIN CALCIUM 20 MG TABLET PO SCH (21:24)
--- NOTE | 2016-10-24 22:41 | PDOC ---
Provider Note Provider Note RENAL F/U : JOE S : Doing better. On bipap. No active CP. O : VSS Afebrile. Neck : Supple Lungs : Non labored. Decreased bases. CVS : RRR Abd : Benign appearance. Ext : No CCE No major edema. Labs reviewed. ARF/ATN CKD DYSPNEA HD started. Follow I/Os Reassess for HD needs in am. Labs. Juliana Diaz M.D. JULIANA DIAZ MD Oct 24, 2016 22:41
[2016-10-25] VITALS (24 sets, daily range): BP systolic 132–184; BP diastolic 48–86
[2016-10-25 05:19] LABS: ALBUMIN 2.7 g/dL (3.4-5.0); CALCIUM 8.2 mg/dL (8.5-10.1); CREATININE 2.6 mg/dL (0.7-1.3); GFR 24.5; PHOSPHORUS 3.1 mg/dL (2.6-4.7)
[2016-10-25] MEDS: PIPERACILLIN/TAZOBACTAM 2.25 GM in IV NORMAL SALINE 50ML 50 ML IV SCH ×4 (06:09→23:25)
[2016-10-25] MEDS: DILTIAZEM HCL 30 MG TABLET PO SCH ×4 (06:10→17:42)
[2016-10-25] MEDS: INSULIN ASPART 300 UNITS/3 ML INSULN.PEN SQ SCH ×6 (07:30→16:36)
[2016-10-25] MEDS: INSULIN DETEMIR 300 UNITS/3 ML INSULN.PEN. SQ SCH (08:00)
[2016-10-25] MEDS: BUDESONIDE 0.5 MG/2 ML NEBU NEB SCH ×2 (08:44→20:19)
[2016-10-25] MEDS: IPRATRPIUM/ALBUTEROL 0.5/2.5MG 3 ML NEBU. NEB SCH ×4 (08:44→20:19)
[2016-10-25] MEDS: ASPIRIN ENTERIC COATED 81 MG TABLET.DR. PO SCH (09:06)
[2016-10-25] MEDS: DOCUSATE SODIUM 100 MG CAPSULE PO SCH ×2 (09:06→21:20)
[2016-10-25 09:20] LABS: HCO3 ABG 25 mmol/L (21-28); PCO2 ABG 45 mmHg (35-46); PH ABG 7.37 (7.35-7.45); PO2 ABG 77 mmHg (65-108); SAT O2 ABG 95 % (92-99)
[2016-10-25 09:21] LABS: FIO2 ABG 60
[2016-10-25] MEDS: HEPARIN PF for SUB-Q USE 5,000 UNIT/0.5 ML VIAL. SQ SCH ×2 (10:09→21:23)
--- NOTE | 2016-10-25 10:52 | PDOC ---
PROGRESS NOTES Chief Complaint Chief Complaint hypoxic respiratory failure, req. NIPPV in ICU 1. Left foot osteomyelitis 2. DM 2 uncontrolled, hypoglycemia yesterday, now elevated, 3. HTN 4 Atrial fib 5. Sepsis 6. RHETT, vasomotor, cont IV fluids 7 Acute diarrhea 8, Mild thrombocytopenia 9 met acidosis 10. Mod.severe malnutrition, POA History of Present Illness History of Present Illness hypertensive, CHF, rales, dyspnea s/p HD pt feels better with Bipap not eating very much restarted insulin at home dose, borderline low, hold if NPO seemingly doing well on half home dose insulin, maybe noncompliance at home broad IV abx Vitals Vitals Vital Signs Date Time Temp Pulse Resp B/P Pulse Ox O2 Delivery O2 Flow Rate FiO2 10/25/16 08:39 100 BiPAP/CPAP 10/25/16 07:00 79 23 171/56 10/25/16 06:00 15.0 10/25/16 05:00 97.7 97.7 Physical Exam Physical Exam tele, now sinus 90 General: Alert, Oriented X3, Cooperative, moderate distress (on bipap) Heart: Normal S1, Normal S2, Other (2/6 systolic murmur to LLS border; reg, rales, ) Lungs: Clear, Wheezing Abdomen: Normal bowel sounds, Soft, No tenderness Extremities: No clubbing, No cyanosis Skin: No rashes, Other (left foot wound) Labs LABS Laboratory Tests Test 10/24/16 13:16 10/24/16 17:59 10/24/16 21:32 10/25/16 04:30 Glucose (Fingerstick) 90mg/dL (70-99) 81mg/dL (70-99) 115mg/dL (70-99) Sodium Level 143mmol/L (136-145) Potassium Level 4.0mmol/L (3.5-5.1) Chloride Level 106mmol/L (98-107) Carbon Dioxide Level 26mmol/L (21-32) Anion Gap 11 (6-14) Blood Urea Nitrogen 35mg/dL (8-26) Creatinine 2.6mg/dL (0.7-1.3) Estimated GFR (Cockcroft-Gault) 24.5 Glucose Level 92mg/dL (70-99) Calcium Level 8.2mg/dL (8.5-10.1) Phosphorus Level 3.1mg/dL (2.6-4.7) Magnesium Level 2.2mg/dL (1.8-2.4) Albumin 2.7g/dL (3.4-5.0) Test 10/25/16 08:45 10/25/16 08:51 O2 Saturation 95% (92-99) Arterial Blood pH 7.37 (7.35-7.45) Arterial Blood pCO2 at Patient Temp 45mmHg (35-46) Arterial Blood pO2 at Patient Temp 77mmHg (65-108) Arterial Blood HCO3 25mmol/L (21-28) Arterial Blood Base Excess 0mmol/L (-3-3) FiO2 60 Glucose (Fingerstick) 81mg/dL (70-99) Assessment and Plan Assessmemt and Plan Problems Medical Problems: (1) Acute renal failure Status: Acute (2) Atrial fibrillation with RVR Status: Acute (3) Lactic acidosis Status: Acute (4) Severe sepsis Status: Acute (5) Uncontrolled diabetes mellitus Status: Acute Problems: Comment Review of Relevant I have reviewed the following items jovan (where applicable) has been applied. Labs Laboratory Tests Test 10/23/16 11:03 10/23/16 12:06 10/23/16 14:09 10/23/16 17:21 Glucose (Fingerstick) 318mg/dL (70-99) 298mg/dL (70-99) 245mg/dL (70-99) 222mg/dL (70-99) Test 10/23/16 20:42 10/24/16 06:51 10/24/16 06:52 10/24/16 07:06 Glucose (Fingerstick) 83mg/dL (70-99) 36mg/dL (70-99) Sodium Level 136mmol/L (136-145) Potassium Level 3.2mmol/L (3.5-5.1) Chloride Level 102mmol/L (98-107) Carbon Dioxide Level 24mmol/L (21-32) Anion Gap 10 (6-14) Blood Urea Nitrogen 59mg/dL (8-26) Creatinine 3.6mg/dL (0.7-1.3) Estimated GFR (Cockcroft-Gault) 16.8 Glucose Level 43mg/dL (70-99) Calcium Level 8.1mg/dL (8.5-10.1) Phosphorus Level 3.3mg/dL (2.6-4.7) Albumin 2.4g/dL (3.4-5.0) Magnesium Level 2.4mg/dL (1.8-2.4) Test 10/24/16 07:08 10/24/16 07:17 10/24/16 10:00 10/24/16 13:16 Glucose (Fingerstick) 38mg/dL (70-99) 142mg/dL (70-99) 90mg/dL (70-99) O2 Saturation 97% (92-99) Arterial Blood pH 7.31 (7.35-7.45) Arterial Blood pCO2 at Patient Temp 40mmHg (35-46) Arterial Blood pO2 at Patient Temp 94mmHg (65-108) Arterial Blood HCO3 20mmol/L (21-28) Arterial Blood Base Excess -6mmol/L (-3-3) FiO2 100 Test 10/24/16 17:59 10/24/16 21:32 10/25/16 04:30 10/25/16 08:45 Glucose (Fingerstick) 81mg/dL (70-99) 115mg/dL (70-99) Sodium Level 143mmol/L (136-145) Potassium Level 4.0mmol/L (3.5-5.1) Chloride Level 106mmol/L (98-107) Carbon Dioxide Level 26mmol/L (21-32) Anion Gap 11 (6-14) Blood Urea Nitrogen 35mg/dL (8-26) Creatinine 2.6mg/dL (0.7-1.3) Estimated GFR (Cockcroft-Gault) 24.5 Glucose Level 92mg/dL (70-99) Calcium Level 8.2mg/dL (8.5-10.1) Phosphorus Level 3.1mg/dL (2.6-4.7) Magnesium Level 2.2mg/dL (1.8-2.4) Albumin 2.7g/dL (3.4-5.0) O2 Saturation 95% (92-99) Arterial Blood pH 7.37 (7.35-7.45) Arterial Blood pCO2 at Patient Temp 45mmHg (35-46) Arterial Blood pO2 at Patient Temp 77mmHg (65-108) Arterial Blood HCO3 25mmol/L (21-28) Arterial Blood Base Excess 0mmol/L (-3-3) FiO2 60 Test 10/25/16 08:51 Glucose (Fingerstick) 81mg/dL (70-99) Laboratory Tests Test 10/24/16 13:16 10/24/16 17:59 10/24/16 21:32 10/25/16 04:30 Glucose (Fingerstick) 90mg/dL (70-99) 81mg/dL (70-99) 115mg/dL (70-99) Sodium Level 143mmol/L (136-145) Potassium Level 4.0mmol/L (3.5-5.1) Chloride Level 106mmol/L (98-107) Carbon Dioxide Level 26mmol/L (21-32) Anion Gap 11 (6-14) Blood Urea Nitrogen 35mg/dL (8-26) Creatinine 2.6mg/dL (0.7-1.3) Estimated GFR (Cockcroft-Gault) 24.5 Glucose Level 92mg/dL (70-99) Calcium Level 8.2mg/dL (8.5-10.1) Phosphorus Level 3.1mg/dL (2.6-4.7) Magnesium Level 2.2mg/dL (1.8-2.4) Albumin 2.7g/dL (3.4-5.0) Test 10/25/16 08:45 10/25/16 08:51 O2 Saturation 95% (92-99) Arterial Blood pH 7.37 (7.35-7.45) Arterial Blood pCO2 at Patient Temp 45mmHg (35-46) Arterial Blood pO2 at Patient Temp 77mmHg (65-108) Arterial Blood HCO3 25mmol/L (21-28) Arterial Blood Base Excess 0mmol/L (-3-3) FiO2 60 Glucose (Fingerstick) 81mg/dL (70-99) Microbiology 10/20/16 Blood Culture - Final, Complete 10/20/16 Blood Culture Result 1 (HERBERT) - Final, Complete 10/21/16 Urine Culture - Final, Complete 10/21/16 Urine Culture Result 1 (HERBERT) - Final, Complete 10/22/16 Gram Stain - Final, Complete Medications Current Medications Diltiazem HCl 20 mg 20 mg 1X ONCE IVP Last administered on 10/20/16 13:35; Start 10/20/16 at 13:30; Stop 10/20/16 at 13:31; Status DC Diltiazem HCl 125 mg/Dextrose 125 ml @ 10 mls/hr 1X ONCE IV Last administered on 10/20/16 13:49; Start 10/20/16 at 13:30; Stop 10/20/16 at 19:37; Status DC Sodium Chloride (Iv Sodium Chloride 0.9% 1000ml Bag) 1,000 ml @ 100 mls/hr Q10H IV Last administered on 10/20/16 13:45; Start 10/20/16 at 13:30; Stop at 23:29; Status DC Diltiazem HCl (Cardizem) 20 mg 1X ONCE IVP Last administered on 10/20/16 14:16 ; Start 10/20/16 at 14:00; Stop 10/20/16 at 14:01; Status DC Vancomycin HCl (Vanco Per Pharmacy) 1 each PRN DAILY PRN MC SEE COMMENTS Last administered on 10/20/16 16:49; Start 10/20/16 at 14:45; Stop 10/21/16 at 07:42; Status DC Piperacillin Sod/ Tazobactam Sod 1 each 1 each PRN DAILY PRN MC SEE COMMENTS; Start 10/20/16 at 14:45; Stop 10/21/16 at 07:49; Status DC Vancomycin HCl 2 gm/Sodium Chloride 500 ml @ 250 mls/hr 1X ONCE IV Last administered on 10/20/16 15:45; Start 10/20/16 at 15:00; Stop 10/20/16 at 16:59; Status DC Piperacillin Sod/ Tazobactam Sod/ Sodium Chloride (Zosyn/Iv Sodium Chloride 0.9 % 50ml) 50 ml @ 100 mls/hr 1X ONCE IV Last administered on 10/20/16 15:04; Start 10/20/16 at 15:00; Stop 10/20/16 at 15:29; Status DC Ondansetron HCl (Zofran) 4 mg PRN Q8HRS PRN IV NAUSEA/VOMITING; Start 10/20/16 at 15:00; Stop 10/20/16 at 15:16; Status DC Fentanyl Citrate 50 mcg 50 mcg PRN Q2HR PRN IV PAIN; Start 10/20/16 at 15:00; Stop 10/21/16 at 14:59; Status DC Sodium Chloride (Iv Sodium Chloride 0.9% 1000ml Bag) 1,000 ml @ 100 mls/hr Q10H IV Last administered on 10/21/16 11:30; Start 10/20/16 at 15:30; Stop at 15:29; Status DC Acetaminophen (Tylenol) 650 mg PRN Q4HRS PRN PO FEVER; Start 10/20/16 at 15:00; Stop 10/21/16 at 14:59; Status DC Ondansetron HCl (Zofran) 4 mg PRN Q6HRS PRN IV NAUSEA/VOMITING; Start 10/20/16 at 15:12 Insulin Aspart (Novolog) 0-9 UNITS TIDWMEALS SQ Last administered on 10/23/16 17:47; Start 10/20/16 at 17:00 Dextrose 12.5 gm PRN Q15MIN PRN IV SEE COMMENTS Last administered on 10/24/16 07:11; Start 10/20/16 at 15:15 Docusate Sodium (Colace) 100 mg BID PO Last administered on 10/25/16 09:06; Start 10/20/16 at 21:00 Glimepiride (Amaryl) 2 mg BID PO ; Start 10/20/16 at 21:00; Status UNV Acetaminophen/ Hydrocodone Bitart (Lortab 7.5/325) 1 tab PRN Q3HRS PRN PO PAIN Last administered on 10/24/16 23:37; Start 10/20/16 at 15:15 Glimepiride (Amaryl) 4 mg BIDWMEALS PO Last administered on 10/20/16 17:32; Start 10/20/16 at 17:00; Stop 10/21/16 at 14:52; Status DC Insulin Detemir (Levemir) 30 units QHS SQ Last administered on 10/20/16 21:03; Start 10/20/16 at 21:00; Stop 10/21/16 at 14:52; Status DC Ondansetron HCl 4 mg 4 mg Q8HRS PO Last administered on 10/21/16 06:17; Start 10/20/16 at 22:00; Stop 10/21/16 at 17:24; Status DC Sodium Chloride 500 ml @ 500 mls/hr 1X ONCE IV ; Start 10/20/16 at 15:30; Stop 10/20/16 at 16:29; Status DC Piperacillin Sod/ Tazobactam Sod 2.25 gm/Sodium Chloride 50 ml @ 100 mls/hr Q6HRS IV Last administered on 10/25/16 06:09; Start 10/21/16 at 00:00 Vancomycin HCl/ Sodium Chloride (Iv Sodium Chloride 0.9% 250ml) 250 ml @ 167 mls/hr Q24H IV ; Start 10/21/16 at 16:00; Stop 10/21/16 at 16:00; Status DC Vancomycin HCl 1 each 1 each 1X ONCE MC ; Start 10/22/16 at 15:30; Stop 10/22/16 at 15:31; Status Cancel Dopamine HCl/ Dextrose 250 ml @ 13.183 mls/ hr CONT PRN IV SEE I/O RECORD Last administered on 10/20/16 20:38; Start 10/20/16 at 19:30 Digoxin (Lanoxin) 250 mcg 1X ONCE IV Last administered on 10/20/16 21:02; Start 10/20/16 at 20:45; Stop 10/20/16 at 20:46; Status DC Digoxin (Lanoxin) 250 mcg 1X ONCE IV Last administered on 10/21/16 01:48; Start 10/21/16 at 02:00; Stop 10/21/16 at 02:01; Status DC Digoxin 250 mcg 250 mcg 1X ONCE IV Last administered on 10/21/16 04:12; Start 10/21/16 at 04:15; Stop 10/21/16 at 04:16; Status DC Diltiazem HCl 125 mg/Dextrose 125 ml @ 0 mls/hr CONT PRN IV SEE I/O RECORD Last administered on 10/21/16 23:03; Start 10/21/16 at 04:15; Stop 10/22/16 at 09: 44; Status DC Linezolid 300 ml @ 300 mls/hr Q12HR IV Last administered on 10/22/16 20:18; Start 10/21/16 at 09:00; Stop 10/23/16 at 07:26; Status DC Magnesium Sulfate/ Dextrose 50 ml @ 25 mls/hr PRN DAILY PRN IV for Mag < 1.7 on am labs Last administered on 10/22/16 15:15; Start 10/21/16 at 09:45 Albumin Human (Plasmanate) 500 ml @ 125 mls/hr 1X ONCE IV Last administered on 10/21/16 10:25; Start 10/21/16 at 09:45; Stop 10/21/16 at 13:44; Status DC Ondansetron HCl (Zofran) 4 mg PRN Q6HRS PRN IV Nausea; Start 10/21/16 at 10:00; Stop 10/22/16 at 09:59; Status DC Fentanyl Citrate (Fentanyl 2ml Vial) 25 mcg PRN Q5MIN PRN IV MILD PAIN; Start 10/21/16 at 10:00; Stop 10/22/16 at 09:59; Status DC Fentanyl Citrate (Fentanyl 2ml Vial) 50 mcg PRN Q5MIN PRN IV MODERATE PAIN; Start 10/21/16 at 10:00; Stop 10/22/16 at 09:59; Status DC Morphine Sulfate 1 mg 1 mg PRN Q10MIN PRN IV SEVERE PAIN; Start 10/21/16 at 10: 00; Stop 10/22/16 at 09:59; Status DC Lactated Ringer's (Iv Lactated Ringers) 1,000 ml @ 30 mls/hr Q24H IV ; Start at 09:50; Stop 10/21/16 at 21:49; Status DC Lidocaine HCl 2 ml 1X PRN PRN ID IV START; Start 10/21/16 at 10:00; Stop at 09:59; Status DC Hydromorphone HCl (Dilaudid) 0.5 mg PRN Q10MIN PRN IV SEV PAIN,Second choice; Start 10/21/16 at 10:00; Stop 10/22/16 at 09:59; Status DC Prochlorperazine Edisylate 5 mg 5 mg PACU PRN PRN IV NAUSEA; Start 10/21/16 at 10:00; Stop 10/22/16 at 09:59; Status DC Sodium Chloride (Iv Sodium Chloride 0.9% 500ml Bag) 500 ml @ 0 mls/hr PRN QID PRN IV UO< 30cc/hr over previous 6hrs; Start 10/21/16 at 10:15; Stop 10/21/16 at 17:27; Status DC Ondansetron HCl (Zofran) 4 mg PRN Q6HRS PRN IV Nausea; Start 10/21/16 at 11:30; Stop 10/22/16 at 11:29; Status DC Morphine Sulfate 1 mg 1 mg PRN Q10MIN PRN IV SEVERE PAIN; Start 10/21/16 at 11: 30; Stop 10/22/16 at 11:29; Status DC Lactated Ringer's (Iv Lactated Ringers) 1,000 ml @ 0 mls/hr Q0M IV ; Start 10/21 at 11:19; Stop 10/21/16 at 23:18; Status DC Lidocaine HCl 2 ml 1X PRN PRN ID IV START; Start 10/21/16 at 11:30; Stop at 11:29; Status DC Hydromorphone HCl (Dilaudid) 0.5 mg PRN Q10MIN PRN IV SEV PAIN,Second choice; Start 10/21/16 at 11:30; Stop 10/22/16 at 11:29; Status DC Prochlorperazine Edisylate (Compazine) 5 mg PACU PRN PRN IV NAUSEA; Start at 11:30; Stop 10/22/16 at 11:29; Status DC Atorvastatin Calcium (Lipitor) 20 mg QHS PO Last administered on 10/24/16 21: 24; Start 10/21/16 at 21:00 Aspirin (Ecotrin) 81 mg DAILYWBKFT PO Last administered on 10/25/16 09:06; Start 10/21/16 at 12:00 Ondansetron HCl (Zofran) 4 mg PRN Q6HRS PRN IV Nausea; Start 10/22/16 at 07:00; Stop 10/23/16 at 06:59; Status DC Morphine Sulfate 1 mg 1 mg PRN Q10MIN PRN IV SEVERE PAIN; Start 10/22/16 at 07: 00; Stop 10/23/16 at 06:59; Status DC Lactated Ringer's (Iv Lactated Ringers) 1,000 ml @ 30 mls/hr Q24H IV ; Start at 07:00; Stop 10/22/16 at 15:07; Status DC Lidocaine HCl 2 ml 1X PRN PRN ID IV START; Start 10/22/16 at 07:00; Stop at 06:59; Status DC Hydromorphone HCl (Dilaudid) 0.5 mg PRN Q10MIN PRN IV SEVERE PAIN, Second choice; Start 10/22/16 at 07:00; Stop 10/23/16 at 06:59; Status DC Prochlorperazine Edisylate (Compazine) 5 mg PACU PRN PRN IV NAUSEA; Start at 07:00; Stop 10/23/16 at 06:59; Status DC Aspirin (Ecotrin) 81 mg DAILYWBKFT PO ; Start 10/22/16 at 08:00; Status UNV Insulin Detemir (Levemir) 20 units QHS SQ ; Start 10/21/16 at 21:00; Stop at 08:29; Status DC Ondansetron HCl 4 mg 4 mg PRN Q8HRS PRN PO NAUSEA; Start 10/22/16 at 14:00 Sodium Chloride 1,000 ml @ 175 mls/hr Q5H43M IV Last administered on 05:30; Start 10/21/16 at 18:00; Stop 10/23/16 at 07:20; Status DC Dextrose 1,000 ml @ 75 mls/hr [id number] IV Last administered on 10/22/16 04:54; Start 10/22/16 at 04:45; Stop 10/22/16 at 15:05; Status DC Bupivacaine HCl (Sensorcaine Mpf 0.5%) 30 ml STK-MED ONCE .ROUTE ; Start at 06:45; Stop 10/22/16 at 06:46; Status DC Lidocaine HCl 20 ml 20 ml STK-MED ONCE .ROUTE ; Start 10/22/16 at 06:46; Stop 10/22/16 at 06:47; Status DC Propofol (Diprivan) 20 ml @ As Directed STK-MED ONCE IV ; Start 10/22/16 at 08:02 ; Stop 10/22/16 at 08:03; Status DC Lidocaine HCl 100 mg STK-MED ONCE .ROUTE ; Start 10/22/16 at 08:02; Stop 10/22/16 at 08:03; Status DC Ondansetron HCl (Zofran) 4 mg STK-MED ONCE .ROUTE ; Start 10/22/16 at 08:31; Stop 10/22/16 at 08:32; Status DC Phenylephrine HCl 1 mg STK-MED ONCE IV ; Start 10/22/16 at 08:31; Stop 10/22/16 at 08:32; Status DC Dexamethasone Sodium Phosphate (Decadron) 20 mg STK-MED ONCE .ROUTE ; Start 10/22 at 08:48; Stop 10/22/16 at 08:49; Status DC Sevoflurane (Ultane) 30 ml STK-MED ONCE IH ; Start 10/22/16 at 08:48; Stop at 08:49; Status DC Diltiazem HCl (Cardizem) 30 mg Q6HRS PO Last administered on 10/25/16 06:10; Start 10/22/16 at 10:00 Metoprolol Tartrate 5 mg 5 mg PRN Q6HRS PRN IVP ELEVATED BP, SEE COMMENTS; Start 10/22/16 at 09:45 Albumin Human (Plasmanate) 500 ml @ 125 mls/hr 1X ONCE IV Last administered on 10/22/16 11:20; Start 10/22/16 at 09:45; Stop 10/22/16 at 13:44; Status DC Info (Anti-Coagulation Monitoring By Pharmacy) 1 each PRN DAILY PRN MC SEE COMMENTS; Start 10/22/16 at 15:15; Status UNV Heparin Sodium (Porcine) 5,000 unit Q12HR SQ Last administered on 10/25/16 10: 09; Start 10/22/16 at 21:00 Loperamide HCl (Imodium) 2 mg PRN Q15MIN PRN PO DIARRHEA Last administered on 09:27; Start 10/22/16 at 20:00 Insulin Human Regular (Novolin R Vial) 10 unit 1X ONCE IV Last administered on 10/22/16 23:52; Start 10/22/16 at 01:00; Stop 10/22/16 at 23:46; Status DC Insulin Detemir (Levemir) 10 units 1X ONCE SQ Last administered on 10/22/16 23 :53; Start 10/22/16 at 23:45; Stop 10/22/16 at 23:46; Status DC Insulin Human Regular 10 unit 10 unit 1X ONCE IV Last administered on 00:09; Start 10/23/16 at 00:00; Stop 10/23/16 at 00:01; Status DC Sodium Chloride 38.75 meq/Sodium Bicarbonate 75 meq/Sterile Water 1,084.6875 ml @ 150 mls/hr CONT PRN IV SEE I/O RECORD Last administered on 10/24/16 07:12; Start 10/23/16 at 07:30 Albumin Human (Albuminar) 100 ml @ 100 mls/hr TID IV Last administered on 10/24 21:23; Start 10/23/16 at 09:00; Stop 10/24/16 at 21:59; Status DC Heparin Sodium (Porcine) 10,000 unit STK-MED ONCE .ROUTE ; Start 10/23/16 at 07: 55; Stop 10/23/16 at 07:56; Status DC Lidocaine/Sodium Bicarbonate 20 ml 20 ml STK-MED ONCE IJ ; Start 10/23/16 at 07: 55; Stop 10/23/16 at 07:56; Status DC Heparin Sodium/ Sodium Chloride 500 ml @ As Directed STK-MED ONCE .ROUTE ; Start 10/23/16 at 07:55; Stop 10/23/16 at 07:56; Status DC Insulin Detemir (Levemir) 20 units DAILY08 SQ ; Start 10/23/16 at 08:00; Stop at 08:01; Status DC Insulin Aspart (Novolog) 10 units TIDAC SQ Last administered on 10/23/16 17:46 ; Start 10/23/16 at 11:30; Stop 10/24/16 at 11:12; Status DC Insulin Detemir (Levemir) 30 units DAILY08 SQ Last administered on 10/23/16 09 :55; Start 10/23/16 at 08:30; Stop 10/24/16 at 11:12; Status DC Lidocaine/Sodium Bicarbonate (Buffered Lidocaine 1%) 3 ml 1X ONCE IJ Last administered on 10/23/16 08:48; Start 10/23/16 at 08:30; Stop 10/23/16 at 08:31 ; Status DC Heparin Sodium/ Sodium Chloride 60 unit 1X ONCE IV Last administered on 08:48; Start 10/23/16 at 08:30; Stop 10/23/16 at 08:31; Status DC Heparin Sodium (Porcine) 2,500 unit 1X ONCE INT CAT Last administered on 08:48; Start 10/23/16 at 08:30; Stop 10/23/16 at 08:31; Status DC Albuterol/ Ipratropium (Duoneb) 3 ml RTQID NEB Last administered on 10/25/16 08:44; Start 10/24/16 at 12:00 Albuterol/ Ipratropium (Duoneb) 3 ml 1X ONCE NEB Last administered on 09:11; Start 10/24/16 at 09:00; Stop 10/24/16 at 09:01; Status DC Budesonide (Pulmicort) 0.5 mg RTBID NEB Last administered on 10/25/16 08:44; Start 10/24/16 at 10:00 Insulin Aspart (Novolog) 7 units TIDAC SQ ; Start 10/24/16 at 11:30 Insulin Detemir (Levemir) 20 units DAILY08 SQ ; Start 10/25/16 at 08:00 Potassium Chloride 20 meq 20 meq 1X ONCE PO Last administered on 10/24/16 18: 28; Start 10/24/16 at 12:00; Stop 10/24/16 at 12:01; Status DC Sodium Chloride 1,000 ml @ 1,000 mls/hr Q1H PRN IV hypotension; Start 10/24/16 at 13:00; Stop 10/24/16 at 18:59; Status DC Albumin Human (Albuminar) 200 ml @ 200 mls/hr 1X PRN PRN IV Hypotension; Start 10/24/16 at 14:00; Stop 10/24/16 at 19:59; Status DC Acetaminophen (Tylenol) 500 mg 1X PRN PRN PO MILD PAIN / TEMP; Start 10/24/16 at 14:00; Stop 10/25/16 at 13:59 Diphenhydramine HCl (Benadryl) 25 mg 1X PRN PRN IV ITCHING; Start 10/24/16 at 14:00; Stop 10/25/16 at 13:59 Diphenhydramine HCl (Benadryl) 25 mg 1X PRN PRN IV ITCHING; Start 10/24/16 at 14:00; Stop 10/25/16 at 13:59 Info (PHARMACY MONITORING -- do not chart) 1 each PRN DAILY PRN MC SEE COMMENTS ; Start 10/24/16 at 14:00 Potassium Chloride (Klor-Con) 20 meq 1X ONCE PO ; Start 10/24/16 at 18:30; Stop 10/24/16 at 18:31; Status DC Active Scripts Active Reported Zofran Odt (Ondansetron) 8 Mg Tab.rapdis 1 Tab PO Q8HRS Colace (Docusate Sodium) 100 Mg Capsule 1 Cap PO BID Hydrocodone-Apap 7.5-325 (Hydrocodone Bit/Acetaminophen) 1 Each Tablet 1 Tab PO Q3HRS PRN Glimepiride 4 Mg Tablet 1 Tab PO BID Glimepiride 2 Mg Tablet 1 Tab PO BID Levemir (Insulin Detemir) 100 Unit/1 Ml Vial 30 Unit SQ HS Vitals/I & O Vital Sign - Last 24 Hours 10/24/16 10/24/16 10/24/16 10/24/16 11:00 11:00 11:15 11:30 Temp 97.1 97.1 Pulse 84 82 78 Resp 20 22 22 B/P 148/50 136/48 139/46 Pulse Ox 100 100 100 O2 Delivery Bi-pap Room Air Room Air Room Air 10/24/16 10/24/16 10/24/16 10/24/16 11:45 12:00 12:10 13:00 Temp 97.1 97.1 Pulse 74 74 74 Resp 23 21 23 B/P 131/46 131/46 153/53 Pulse Ox 100 100 100 100 O2 Delivery Room Air BiPAP/CPAP BiPAP/CPAP BiPAP/CPAP 10/24/16 10/24/16 10/24/16 10/24/16 13:22 14:00 15:00 15:43 Pulse 74 76 Resp 20 22 B/P 151/51 147/62 Pulse Ox 100 97 99 99 O2 Delivery BiPAP/CPAP BiPAP/CPAP BiPAP/CPAP BiPAP/CPAP 10/24/16 10/24/16 10/24/16 10/24/16 16:00 16:00 17:00 18:00 Temp 96.9 96.9 Pulse 84 90 90 Resp 24 22 24 B/P 152/69 155/63 155/58 Pulse Ox 99 99 88 O2 Delivery BiPAP/CPAP Bi-pap BiPAP/CPAP Nasal Cannula O2 Flow Rate 6.0 10/24/16 10/24/16 10/24/16 10/24/16 18:28 19:00 20:00 20:00 Temp 97.8 97.8 Pulse 88 94 88 Resp 16 21 B/P 156/69 155/59 156/60 Pulse Ox 95 97 O2 Delivery Nasal Cannula Nasal Cannula Nasal Cannula O2 Flow Rate 6.0 6.0 6.0 10/24/16 10/24/16 10/24/16 10/24/16 20:14 21:00 22:00 23:00 Temp 97.5 97.5 Pulse 93 95 99 Resp 18 15 15 B/P 160/57 143/51 168/73 Pulse Ox 90 93 95 90 O2 Delivery Nasal Cannula Nasal Cannula Venturi Mask Venturi Mask O2 Flow Rate 7.0 6.0 15.0 15.0 10/24/16 10/24/16 10/25/16 10/25/16 23:31 23:37 00:00 00:00 Pulse 99 104 Resp 25 24 B/P 169/57 158/48 Pulse Ox 90 99 O2 Delivery Venturi Mask Bi-pap BiPAP/CPAP O2 Flow Rate 15.0 10/25/16 10/25/16 10/25/16 10/25/16 01:00 02:00 03:00 03:00 Pulse 74 92 92 90 Resp 21 20 20 20 B/P 135/54 135/54 135/54 160/65 Pulse Ox 99 99 99 98 O2 Delivery BiPAP/CPAP BiPAP/CPAP BiPAP/CPAP BiPAP/CPAP 10/25/16 10/25/16 10/25/16 10/25/16 04:00 04:00 05:00 05:49 Temp 97.7 97.7 Pulse 87 83 Resp 14 19 B/P 150/48 161/62 Pulse Ox 98 98 98 O2 Delivery Bi-pap BiPAP/CPAP BiPAP/CPAP BiPAP/CPAP 10/25/16 10/25/16 10/25/16 10/25/16 06:00 06:10 07:00 08:39 Pulse 85 85 79 Resp 23 23 B/P 184/65 155/45 171/56 Pulse Ox 95 97 100 O2 Delivery BiPAP/CPAP BiPAP/CPAP BiPAP/CPAP O2 Flow Rate 15.0 Intake and Output 10/24/16 10/24/16 10/25/16 15:00 23:00 07:00 Intake Total 500 ml 50 ml Output Total 1880 ml 270 ml Balance -1380 ml -220 ml BEKA CARRION MD Oct 25, 2016 10:52
--- NOTE | 2016-10-25 10:53 | PDOC ---
PULMONARY PROGRESS NOTES Subjective feels better s/p emergent HD 10/24 still on BIPAP Vitals Vital Signs Date Time Temp Pulse Resp B/P Pulse Ox O2 Delivery O2 Flow Rate FiO2 10/25/16 08:39 100 BiPAP/CPAP 10/25/16 07:00 79 23 171/56 10/25/16 06:00 15.0 10/25/16 05:00 97.7 97.7 General: Alert Lungs: Crackles (ant) Cardiovascular: S1 Abdomen: Soft Neuro Exam: Alert Extremities: Other (1+edema) Labs Laboratory Tests Test 10/23/16 11:03 10/23/16 12:06 10/23/16 14:09 10/23/16 17:21 Glucose (Fingerstick) 318mg/dL (70-99) 298mg/dL (70-99) 245mg/dL (70-99) 222mg/dL (70-99) Test 10/23/16 20:42 10/24/16 06:51 10/24/16 06:52 10/24/16 07:06 Glucose (Fingerstick) 83mg/dL (70-99) 36mg/dL (70-99) Sodium Level 136mmol/L (136-145) Potassium Level 3.2mmol/L (3.5-5.1) Chloride Level 102mmol/L (98-107) Carbon Dioxide Level 24mmol/L (21-32) Anion Gap 10 (6-14) Blood Urea Nitrogen 59mg/dL (8-26) Creatinine 3.6mg/dL (0.7-1.3) Estimated GFR (Cockcroft-Gault) 16.8 Glucose Level 43mg/dL (70-99) Calcium Level 8.1mg/dL (8.5-10.1) Phosphorus Level 3.3mg/dL (2.6-4.7) Albumin 2.4g/dL (3.4-5.0) Magnesium Level 2.4mg/dL (1.8-2.4) Test 10/24/16 07:08 10/24/16 07:17 10/24/16 10:00 10/24/16 13:16 Glucose (Fingerstick) 38mg/dL (70-99) 142mg/dL (70-99) 90mg/dL (70-99) O2 Saturation 97% (92-99) Arterial Blood pH 7.31 (7.35-7.45) Arterial Blood pCO2 at Patient Temp 40mmHg (35-46) Arterial Blood pO2 at Patient Temp 94mmHg (65-108) Arterial Blood HCO3 20mmol/L (21-28) Arterial Blood Base Excess -6mmol/L (-3-3) FiO2 100 Test 10/24/16 17:59 10/24/16 21:32 10/25/16 04:30 10/25/16 08:45 Glucose (Fingerstick) 81mg/dL (70-99) 115mg/dL (70-99) Sodium Level 143mmol/L (136-145) Potassium Level 4.0mmol/L (3.5-5.1) Chloride Level 106mmol/L (98-107) Carbon Dioxide Level 26mmol/L (21-32) Anion Gap 11 (6-14) Blood Urea Nitrogen 35mg/dL (8-26) Creatinine 2.6mg/dL (0.7-1.3) Estimated GFR (Cockcroft-Gault) 24.5 Glucose Level 92mg/dL (70-99) Calcium Level 8.2mg/dL (8.5-10.1) Phosphorus Level 3.1mg/dL (2.6-4.7) Magnesium Level 2.2mg/dL (1.8-2.4) Albumin 2.7g/dL (3.4-5.0) O2 Saturation 95% (92-99) Arterial Blood pH 7.37 (7.35-7.45) Arterial Blood pCO2 at Patient Temp 45mmHg (35-46) Arterial Blood pO2 at Patient Temp 77mmHg (65-108) Arterial Blood HCO3 25mmol/L (21-28) Arterial Blood Base Excess 0mmol/L (-3-3) FiO2 60 Test 10/25/16 08:51 Glucose (Fingerstick) 81mg/dL (70-99) Laboratory Tests Test 10/24/16 13:16 10/24/16 17:59 10/24/16 21:32 10/25/16 04:30 Glucose (Fingerstick) 90mg/dL (70-99) 81mg/dL (70-99) 115mg/dL (70-99) Sodium Level 143mmol/L (136-145) Potassium Level 4.0mmol/L (3.5-5.1) Chloride Level 106mmol/L (98-107) Carbon Dioxide Level 26mmol/L (21-32) Anion Gap 11 (6-14) Blood Urea Nitrogen 35mg/dL (8-26) Creatinine 2.6mg/dL (0.7-1.3) Estimated GFR (Cockcroft-Gault) 24.5 Glucose Level 92mg/dL (70-99) Calcium Level 8.2mg/dL (8.5-10.1) Phosphorus Level 3.1mg/dL (2.6-4.7) Magnesium Level 2.2mg/dL (1.8-2.4) Albumin 2.7g/dL (3.4-5.0) Test 10/25/16 08:45 10/25/16 08:51 O2 Saturation 95% (92-99) Arterial Blood pH 7.37 (7.35-7.45) Arterial Blood pCO2 at Patient Temp 45mmHg (35-46) Arterial Blood pO2 at Patient Temp 77mmHg (65-108) Arterial Blood HCO3 25mmol/L (21-28) Arterial Blood Base Excess 0mmol/L (-3-3) FiO2 60 Glucose (Fingerstick) 81mg/dL (70-99) Medications Active Scripts Medications Dose Route/Sig Days Date Category Zofran Odt (Ondansetron) 8 Mg Tab.rapdis 1 Tab PO Q8HRS 09/30/16 Reported Colace (Docusate Sodium) 100 Mg Capsule 1 Cap PO BID 09/30/16 Reported Hydrocodone-Apap 7.5-325 (Hydrocodone Bit/Acetaminophen) 1 Each Tablet 1 Tab PO Q3HRS PRN 09/30/16 Reported Glimepiride 4 Mg Tablet 1 Tab PO BID 09/29/16 Reported Glimepiride 2 Mg Tablet 1 Tab PO BID 09/29/16 Reported Levemir (Insulin Detemir) 100 Unit/1 Ml Vial 30 Unit SQ HS 06/29/14 Reported Impression . 1. Acute hypoxic respiratory failure with progressive hypoxia since last 24 hours and along with worsening bilateral interstitial infiltrates. This is related to acute congestive heart failure, most likely diastolic and in addition contributed by progressive renal failure. 2. Clinically, less likely pneumonia. 3. Underlying chronic obstructive pulmonary disease. 4. Abnormal chest x-ray with diffuse interstitial infiltrates, more compatible with congestive heart failure. 5. Acute kidney injury on chronic kidney disease. s/p emergent dialysis. 6. Hypoglycemia, now being corrected. 7. Normal ejection fraction on recent echo. Plan . 1. HD with UF 2. Continue BiPAP. 3. consider hemodialysis today as well 4. Repeat chest x-ray in am 5. Continue bronchodilators. 6. Continue antibiotics. 7. Monitor blood sugars. 8. keep in ICU. 9. Discussed with RN and RT. IRVIN PERALTA MD Oct 25, 2016 10:53
[2016-10-25] MEDS: AA 2.75%/CALCIUM/LYTES/D5W 1,000 ML IV SCH (12:00)
--- NOTE | 2016-10-25 12:14 | RAD ---
EXAM: Chest one view. HISTORY: Congestive heart failure. COMPARISON: 10/24/2016. FINDINGS: A frontal view of the chest is obtained. A right internal jugular pheresis catheter has its tip in the right atrium. Bilateral interstitial and airspace opacities within an apical predominance are stable to slightly increased. There is no pneumothorax or pleural effusion. The heart is not enlarged. IMPRESSION: 1. Stable to slightly increased moderate to severe noncardiogenic pulmonary edema. Superimposed pneumonia cannot be excluded.
--- NOTE | 2016-10-25 12:29 | PDOC ---
Infectious Disease Note Subjective Subjective States ok Foot ok ROS ROS GEN: Denies fevers, chills, sweats HEENT: Denies blurred vision, sore throat CV: Denies chest pain RESP: Denies shortness of air, cough GI: Denies n/v/d NEURO: Denies confusion, dizziness MSK: Denies weakness, joint pain/swelling Vital Sign Vital Signs Vital Signs Date Time Temp Pulse Resp B/P Pulse Ox O2 Delivery O2 Flow Rate FiO2 10/25/16 11:00 88 20 166/73 96 BiPAP/CPAP 10/25/16 08:00 97.4 97.4 10/25/16 06:00 15.0 Physical Exam PHYSICAL EXAM GENERAL: NAD, Alert on Bipap HEENT: PERRL, NECK: Supple, no JVD, no LN LUNGS: Clear HEART: S1S2, no gallop, no murmur ABD: Soft, NT, no organomegaly, no rebound, mild distension EXT: No edema, no cyanosis/vac to LEFT LE/foot ATHLETIC MONITOR: Alert, oriented x 3, no focal neurologic deficit SKIN: No rash IV: HD Labs Lab Laboratory Tests Test 10/24/16 13:16 10/24/16 17:59 10/24/16 21:32 10/25/16 04:30 Glucose (Fingerstick) 90mg/dL (70-99) 81mg/dL (70-99) 115mg/dL (70-99) Sodium Level 143mmol/L (136-145) Potassium Level 4.0mmol/L (3.5-5.1) Chloride Level 106mmol/L (98-107) Carbon Dioxide Level 26mmol/L (21-32) Anion Gap 11 (6-14) Blood Urea Nitrogen 35mg/dL (8-26) Creatinine 2.6mg/dL (0.7-1.3) Estimated GFR (Cockcroft-Gault) 24.5 Glucose Level 92mg/dL (70-99) Calcium Level 8.2mg/dL (8.5-10.1) Phosphorus Level 3.1mg/dL (2.6-4.7) Magnesium Level 2.2mg/dL (1.8-2.4) Albumin 2.7g/dL (3.4-5.0) Test 10/25/16 08:45 10/25/16 08:51 O2 Saturation 95% (92-99) Arterial Blood pH 7.37 (7.35-7.45) Arterial Blood pCO2 at Patient Temp 45mmHg (35-46) Arterial Blood pO2 at Patient Temp 77mmHg (65-108) Arterial Blood HCO3 25mmol/L (21-28) Arterial Blood Base Excess 0mmol/L (-3-3) FiO2 60 Glucose (Fingerstick) 81mg/dL (70-99) Objective Assessment SOA - ? Fluid Hypoglycemia Extensive left foot infection s/p I and D 10/[address] MSSA Septic shock Lactic acidosis DM BC + ,Group A strep 10/20 Plan Plan of Care Cont zosyn Repeat Blood Local wound care F/u labs supportive care CADY REYNA MD Oct 25, 2016 12:29
--- NOTE | 2016-10-25 13:06 | PDOC ---
PROGRESS NOTES Subjective Subjective Problems overnight: No complaints for the left foot currently on pressure ventilation but communicative Objective Vital Signs Vital Signs Date Time Temp Pulse Resp B/P Pulse Ox O2 Delivery O2 Flow Rate FiO2 10/25/16 12:29 80 172/72 10/25/16 12:23 98 BiPAP/CPAP 10/25/16 12:00 97.4 22 97.4 10/25/16 06:00 15.0 Physical Exam Wound VAC intact to left footrunning redness or erythema transmetatarsal amputation site remains well-healed and intact Labs Laboratory Tests Test 10/23/16 14:09 10/23/16 17:21 10/23/16 20:42 10/24/16 06:51 Glucose (Fingerstick) 245mg/dL (70-99) 222mg/dL (70-99) 83mg/dL (70-99) Sodium Level 136mmol/L (136-145) Potassium Level 3.2mmol/L (3.5-5.1) Chloride Level 102mmol/L (98-107) Carbon Dioxide Level 24mmol/L (21-32) Anion Gap 10 (6-14) Blood Urea Nitrogen 59mg/dL (8-26) Creatinine 3.6mg/dL (0.7-1.3) Estimated GFR (Cockcroft-Gault) 16.8 Glucose Level 43mg/dL (70-99) Calcium Level 8.1mg/dL (8.5-10.1) Phosphorus Level 3.3mg/dL (2.6-4.7) Albumin 2.4g/dL (3.4-5.0) Test 10/24/16 06:52 10/24/16 07:06 10/24/16 07:08 10/24/16 07:17 Magnesium Level 2.4mg/dL (1.8-2.4) Glucose (Fingerstick) 36mg/dL (70-99) 38mg/dL (70-99) 142mg/dL (70-99) Test 10/24/16 10:00 10/24/16 13:16 10/24/16 17:59 10/24/16 21:32 O2 Saturation 97% (92-99) Arterial Blood pH 7.31 (7.35-7.45) Arterial Blood pCO2 at Patient Temp 40mmHg (35-46) Arterial Blood pO2 at Patient Temp 94mmHg (65-108) Arterial Blood HCO3 20mmol/L (21-28) Arterial Blood Base Excess -6mmol/L (-3-3) FiO2 100 Glucose (Fingerstick) 90mg/dL (70-99) 81mg/dL (70-99) 115mg/dL (70-99) Test 10/25/16 04:30 10/25/16 08:45 10/25/16 08:51 10/25/16 12:28 Sodium Level 143mmol/L (136-145) Potassium Level 4.0mmol/L (3.5-5.1) Chloride Level 106mmol/L (98-107) Carbon Dioxide Level 26mmol/L (21-32) Anion Gap 11 (6-14) Blood Urea Nitrogen 35mg/dL (8-26) Creatinine 2.6mg/dL (0.7-1.3) Estimated GFR (Cockcroft-Gault) 24.5 Glucose Level 92mg/dL (70-99) Calcium Level 8.2mg/dL (8.5-10.1) Phosphorus Level 3.1mg/dL (2.6-4.7) Magnesium Level 2.2mg/dL (1.8-2.4) Albumin 2.7g/dL (3.4-5.0) O2 Saturation 95% (92-99) Arterial Blood pH 7.37 (7.35-7.45) Arterial Blood pCO2 at Patient Temp 45mmHg (35-46) Arterial Blood pO2 at Patient Temp 77mmHg (65-108) Arterial Blood HCO3 25mmol/L (21-28) Arterial Blood Base Excess 0mmol/L (-3-3) FiO2 60 Glucose (Fingerstick) 81mg/dL (70-99) 79mg/dL (70-99) Laboratory Tests Test 10/24/16 13:16 10/24/16 17:59 10/24/16 21:32 10/25/16 04:30 Glucose (Fingerstick) 90mg/dL (70-99) 81mg/dL (70-99) 115mg/dL (70-99) Sodium Level 143mmol/L (136-145) Potassium Level 4.0mmol/L (3.5-5.1) Chloride Level 106mmol/L (98-107) Carbon Dioxide Level 26mmol/L (21-32) Anion Gap 11 (6-14) Blood Urea Nitrogen 35mg/dL (8-26) Creatinine 2.6mg/dL (0.7-1.3) Estimated GFR (Cockcroft-Gault) 24.5 Glucose Level 92mg/dL (70-99) Calcium Level 8.2mg/dL (8.5-10.1) Phosphorus Level 3.1mg/dL (2.6-4.7) Magnesium Level 2.2mg/dL (1.8-2.4) Albumin 2.7g/dL (3.4-5.0) Test 10/25/16 08:45 10/25/16 08:51 10/25/16 12:28 O2 Saturation 95% (92-99) Arterial Blood pH 7.37 (7.35-7.45) Arterial Blood pCO2 at Patient Temp 45mmHg (35-46) Arterial Blood pO2 at Patient Temp 77mmHg (65-108) Arterial Blood HCO3 25mmol/L (21-28) Arterial Blood Base Excess 0mmol/L (-3-3) FiO2 60 Glucose (Fingerstick) 81mg/dL (70-99) 79mg/dL (70-99) Assessment Assessment POD# [], S/P [debridement left foot] Problems: Plan Plan of Care Continue wound VAC treatment left foot Medical management TRAV FAGAN MD Oct 25, 2016 13:05
[2016-10-25] MEDS ORDERED: IV NORMAL SALINE 1000ML BAG 1,000 ML IV PRN (13:07)
[2016-10-25] MEDS ORDERED: ACETAMINOPHEN 500 MG TABLET PO PRN (13:15)
[2016-10-25] MEDS ORDERED: DIPHENHYDRAMINE 50 MG/ML VIAL IV PRN ×2 (13:15)
[2016-10-25] MEDS ORDERED: DIALYSIS PATIENT. MC PRN (13:15)
[2016-10-25] MEDS: ALBUMIN HUMAN 25% 200 ML IV PRN ×2 (13:59→14:30)
--- NOTE | 2016-10-25 15:12 | PDOC ---
Provider Note Provider Note RENAL F/U : JOE S : Doing fair. On bipap. No active CP. O : VSS Afebrile. Neck : Supple Lungs : Non labored. Decreased bases. CVS : RRR Abd : Benign appearance. Ext : No CCE No major edema. Labs reviewed. ARF/ATN CKD DYSPNEA HD done. Seen on RX. UF reduced as BP dropped and HR went up d/w Dr. Thomson Attempt UF again in am. If not tolerated, then SCUF Labs. Juliana Diaz M.D. JULIANA DIAZ MD Oct 25, 2016 15:12
[2016-10-25 19:10] LABS: HEP B SURFACE ABDY Non Reactive (.)
[2016-10-25] MEDS: ATORVASTATIN CALCIUM 20 MG TABLET PO SCH (21:20)
[2016-10-26] VITALS (23 sets, daily range): BP systolic 138–179; BP diastolic 41–78
[2016-10-26 05:25] LABS: BASO # 0.1 x10^3/uL (0.0-0.2); BASO % 1 % (0-3); EOS % 1 % (0-3); HEMATOCRIT 28.8 % (39.0-53.0); HEMOGLOBIN 9.8 g/dL (13.0-17.5); LYMPH # 0.5 x10^3/uL (1.0-4.8); LYMPH % 9 % (24-48); MEAN CORPUSCULAR HEMOGLOBIN 29 pg (25-35); MEAN CORPUSCULAR HGB CONC 34 g/dL (31-37); MEAN CORPUSCULAR VOLUME 85 fL (79-100); MONO % 6 % (0-9); NEUT % 84 % (31-73); PLATELET COUNT 80 x10^3/uL (140-400); RED BLOOD COUNT 3.41 x10^6/uL (4.30-5.70); RED CELL DISTRIBUTION WIDTH 14.3 % (11.5-14.5); WHITE BLOOD COUNT 6.2 x10^3/uL (4.0-11.0)
[2016-10-26 05:46] LABS: ALBUMIN 2.6 g/dL (3.4-5.0); CALCIUM 8.4 mg/dL (8.5-10.1); GFR 33.1; PHOSPHORUS 2.4 mg/dL (2.6-4.7)
[2016-10-26] MEDS: PIPERACILLIN/TAZOBACTAM 2.25 GM in IV NORMAL SALINE 50ML 50 ML IV SCH ×3 (06:16→18:10)
[2016-10-26] MEDS: AA 2.75%/CALCIUM/LYTES/D5W 1,000 ML IV SCH ×2 (06:17→08:47)
[2016-10-26] MEDS: DILTIAZEM HCL 30 MG TABLET PO SCH ×3 (06:17→18:12)
[2016-10-26] MEDS: INSULIN ASPART 300 UNITS/3 ML INSULN.PEN SQ SCH ×6 (08:00→17:00)
--- NOTE | 2016-10-26 08:09 | PDOC ---
Infectious Disease Note Subjective Subjective States ok Foot ok ROS ROS Hard to completely ascertain with BiPAP Vital Sign Vital Signs Vital Signs Date Time Temp Pulse Resp B/P Pulse Ox O2 Delivery O2 Flow Rate FiO2 10/26/16 07:00 93 20 169/62 98 BiPAP/CPAP 10/26/16 04:38 97.4 97.4 Physical Exam PHYSICAL EXAM GENERAL: NAD, Alert on Bipap HEENT: PERRL, NECK: Supple, no JVD, no LN LUNGS: Coarse HEART: S1S2, no gallop, no murmur ABD: Soft, NT, no organomegaly, no rebound, mild distension EXT: No edema, no cyanosis/vac to LEFT LE/foot MEDICAL COORDINATOR PESTICIDE USE: Alert, oriented x 3, no focal neurologic deficit SKIN: No rash IV: HD Labs Lab Laboratory Tests Test 10/25/16 08:45 10/25/16 08:51 10/25/16 12:28 10/25/16 16:34 O2 Saturation 95% (92-99) Arterial Blood pH 7.37 (7.35-7.45) Arterial Blood pCO2 at Patient Temp 45mmHg (35-46) Arterial Blood pO2 at Patient Temp 77mmHg (65-108) Arterial Blood HCO3 25mmol/L (21-28) Arterial Blood Base Excess 0mmol/L (-3-3) FiO2 60 Glucose (Fingerstick) 81mg/dL (70-99) 79mg/dL (70-99) 113mg/dL (70-99) Test 10/25/16 21:17 10/26/16 04:46 10/26/16 04:56 Glucose (Fingerstick) 195mg/dL (70-99) White Blood Count 6.2x10^3/uL (4.0-11.0) Red Blood Count 3.41x10^6/uL (4.30-5.70) Hemoglobin 9.8g/dL (13.0-17.5) Hematocrit 28.8% (39.0-53.0) Mean Corpuscular Volume 85fL (79-100) Mean Corpuscular Hemoglobin 29pg (25-35) Mean Corpuscular Hemoglobin Concent 34g/dL (31-37) Red Cell Distribution Width 14.3% (11.5-14.5) Platelet Count 80x10^3/uL (140-400) Neutrophils (%) (Auto) 84% (31-73) Lymphocytes (%) (Auto) 9% (24-48) Monocytes (%) (Auto) 6% (0-9) Eosinophils (%) (Auto) 1% (0-3) Basophils (%) (Auto) 1% (0-3) Neutrophils # (Auto) 5.2x10^3uL (1.8-7.7) Lymphocytes # (Auto) 0.5x10^3/uL (1.0-4.8) Monocytes # (Auto) 0.3x10^3/uL (0.0-1.1) Eosinophils # (Auto) 0.1x10^3/uL (0.0-0.7) Basophils # (Auto) 0.1x10^3/uL (0.0-0.2) Sodium Level 140mmol/L (136-145) Potassium Level 4.0mmol/L (3.5-5.1) Chloride Level 104mmol/L (98-107) Carbon Dioxide Level 27mmol/L (21-32) Anion Gap 9 (6-14) Blood Urea Nitrogen 27mg/dL (8-26) Creatinine 2.0mg/dL (0.7-1.3) Estimated GFR (Cockcroft-Gault) 33.1 Glucose Level 232mg/dL (70-99) Calcium Level 8.4mg/dL (8.5-10.1) Phosphorus Level 2.4mg/dL (2.6-4.7) Albumin 2.6g/dL (3.4-5.0) Magnesium Level 2.0mg/dL (1.8-2.4) Objective Assessment SOA - ? Fluid - now with coarse sounds Hypoglycemia -better Extensive left foot infection s/p I and D 10/[address] MSSA Septic shock Lactic acidosis DM BC + ,Group A strep 10/20 Plan Plan of Care Cont zosyn Repeat Blood pending May need ECHO Local wound care F/u labs supportive care CADY REYNA MD Oct 26, 2016 08:09
[2016-10-26] MEDS: DOCUSATE SODIUM 100 MG CAPSULE PO SCH ×2 (08:38→21:17)
[2016-10-26] MEDS: ASPIRIN ENTERIC COATED 81 MG TABLET.DR. PO SCH (08:38)
[2016-10-26] MEDS: HEPARIN PF for SUB-Q USE 5,000 UNIT/0.5 ML VIAL. SQ SCH ×2 (08:40→21:25)
[2016-10-26] MEDS: INSULIN DETEMIR 300 UNITS/3 ML INSULN.PEN. SQ SCH (08:43)
[2016-10-26] MEDS: IPRATRPIUM/ALBUTEROL 0.5/2.5MG 3 ML NEBU. NEB SCH ×4 (08:53→19:36)
[2016-10-26] MEDS: BUDESONIDE 0.5 MG/2 ML NEBU NEB SCH ×2 (08:53→19:36)
[2016-10-26] MEDS: hydrALAZINE 20 MG/ML VIAL. IVP PRN ×2 (09:32)
--- NOTE | 2016-10-26 10:11 | PDOC ---
ORTHO PROGRESS NOTES Subjective On PPV, foot ok, some pain, but not worsening Vitals Vital Signs Date Time Temp Pulse Resp B/P Pulse Ox O2 Delivery O2 Flow Rate FiO2 10/26/16 09:32 112 179/70 10/26/16 08:54 96 BiPAP/CPAP 10/26/16 08:00 98.5 23 98.5 Labs Laboratory Tests Test 10/24/16 13:16 10/24/16 15:20 10/24/16 17:59 10/24/16 21:32 Glucose (Fingerstick) 90mg/dL (70-99) 81mg/dL (70-99) 115mg/dL (70-99) Hepatitis B Surface Antigen Negative (Negative) Hepatitis B Surface Antibody Non reactive (.) Test 10/25/16 04:30 10/25/16 08:45 10/25/16 08:51 10/25/16 12:28 Sodium Level 143mmol/L (136-145) Potassium Level 4.0mmol/L (3.5-5.1) Chloride Level 106mmol/L (98-107) Carbon Dioxide Level 26mmol/L (21-32) Anion Gap 11 (6-14) Blood Urea Nitrogen 35mg/dL (8-26) Creatinine 2.6mg/dL (0.7-1.3) Estimated GFR (Cockcroft-Gault) 24.5 Glucose Level 92mg/dL (70-99) Calcium Level 8.2mg/dL (8.5-10.1) Phosphorus Level 3.1mg/dL (2.6-4.7) Magnesium Level 2.2mg/dL (1.8-2.4) Albumin 2.7g/dL (3.4-5.0) O2 Saturation 95% (92-99) Arterial Blood pH 7.37 (7.35-7.45) Arterial Blood pCO2 at Patient Temp 45mmHg (35-46) Arterial Blood pO2 at Patient Temp 77mmHg (65-108) Arterial Blood HCO3 25mmol/L (21-28) Arterial Blood Base Excess 0mmol/L (-3-3) FiO2 60 Glucose (Fingerstick) 81mg/dL (70-99) 79mg/dL (70-99) Test 10/25/16 16:34 10/25/16 21:17 10/26/16 04:46 10/26/16 04:56 Glucose (Fingerstick) 113mg/dL (70-99) 195mg/dL (70-99) White Blood Count 6.2x10^3/uL (4.0-11.0) Red Blood Count 3.41x10^6/uL (4.30-5.70) Hemoglobin 9.8g/dL (13.0-17.5) Hematocrit 28.8% (39.0-53.0) Mean Corpuscular Volume 85fL (79-100) Mean Corpuscular Hemoglobin 29pg (25-35) Mean Corpuscular Hemoglobin Concent 34g/dL (31-37) Red Cell Distribution Width 14.3% (11.5-14.5) Platelet Count 80x10^3/uL (140-400) Neutrophils (%) (Auto) 84% (31-73) Lymphocytes (%) (Auto) 9% (24-48) Monocytes (%) (Auto) 6% (0-9) Eosinophils (%) (Auto) 1% (0-3) Basophils (%) (Auto) 1% (0-3) Neutrophils # (Auto) 5.2x10^3uL (1.8-7.7) Lymphocytes # (Auto) 0.5x10^3/uL (1.0-4.8) Monocytes # (Auto) 0.3x10^3/uL (0.0-1.1) Eosinophils # (Auto) 0.1x10^3/uL (0.0-0.7) Basophils # (Auto) 0.1x10^3/uL (0.0-0.2) Sodium Level 140mmol/L (136-145) Potassium Level 4.0mmol/L (3.5-5.1) Chloride Level 104mmol/L (98-107) Carbon Dioxide Level 27mmol/L (21-32) Anion Gap 9 (6-14) Blood Urea Nitrogen 27mg/dL (8-26) Creatinine 2.0mg/dL (0.7-1.3) Estimated GFR (Cockcroft-Gault) 33.1 Glucose Level 232mg/dL (70-99) Calcium Level 8.4mg/dL (8.5-10.1) Phosphorus Level 2.4mg/dL (2.6-4.7) Albumin 2.6g/dL (3.4-5.0) Magnesium Level 2.0mg/dL (1.8-2.4) Laboratory Tests Test 10/25/16 12:28 10/25/16 16:34 10/25/16 21:17 10/26/16 04:46 Glucose (Fingerstick) 79mg/dL (70-99) 113mg/dL (70-99) 195mg/dL (70-99) White Blood Count 6.2x10^3/uL (4.0-11.0) Red Blood Count 3.41x10^6/uL (4.30-5.70) Hemoglobin 9.8g/dL (13.0-17.5) Hematocrit 28.8% (39.0-53.0) Mean Corpuscular Volume 85fL (79-100) Mean Corpuscular Hemoglobin 29pg (25-35) Mean Corpuscular Hemoglobin Concent 34g/dL (31-37) Red Cell Distribution Width 14.3% (11.5-14.5) Platelet Count 80x10^3/uL (140-400) Neutrophils (%) (Auto) 84% (31-73) Lymphocytes (%) (Auto) 9% (24-48) Monocytes (%) (Auto) 6% (0-9) Eosinophils (%) (Auto) 1% (0-3) Basophils (%) (Auto) 1% (0-3) Neutrophils # (Auto) 5.2x10^3uL (1.8-7.7) Lymphocytes # (Auto) 0.5x10^3/uL (1.0-4.8) Monocytes # (Auto) 0.3x10^3/uL (0.0-1.1) Eosinophils # (Auto) 0.1x10^3/uL (0.0-0.7) Basophils # (Auto) 0.1x10^3/uL (0.0-0.2) Sodium Level 140mmol/L (136-145) Potassium Level 4.0mmol/L (3.5-5.1) Chloride Level 104mmol/L (98-107) Carbon Dioxide Level 27mmol/L (21-32) Anion Gap 9 (6-14) Blood Urea Nitrogen 27mg/dL (8-26) Creatinine 2.0mg/dL (0.7-1.3) Estimated GFR (Cockcroft-Gault) 33.1 Glucose Level 232mg/dL (70-99) Calcium Level 8.4mg/dL (8.5-10.1) Phosphorus Level 2.4mg/dL (2.6-4.7) Albumin 2.6g/dL (3.4-5.0) Test 10/26/16 04:56 Magnesium Level 2.0mg/dL (1.8-2.4) Notes A and A LLE: edema unchanged VAC in place over plantar lateral wound, good seal Assessment and Plan cont VAC, wound care medical mgmt JUWAN WALLACE II, MD Oct 26, 2016 10:11
--- NOTE | 2016-10-26 10:23 | RAD ---
Indication: Heart failure. Short of breath. Nonverbal patient. Technique: AP upright portable chest radiograph was obtained and compared to a study from one day earlier. Findings: Bilateral airspace disease is again noted, slightly decreased from yesterday's exam. The heart is not enlarged. There is no definite heart failure. There is a right IJ central line. There may be a minimal right pleural effusion. Leads overlie the patient. Impression: 1. Bilateral airspace disease, slightly decreased from prior.
--- NOTE | 2016-10-26 10:40 | PDOC ---
PULMONARY PROGRESS NOTES Subjective still soa on bipap Vitals Vital Signs Date Time Temp Pulse Resp B/P Pulse Ox O2 Delivery O2 Flow Rate FiO2 10/26/16 09:32 112 179/70 10/26/16 08:54 96 BiPAP/CPAP 10/26/16 08:00 98.5 23 98.5 General: Alert Lungs: Crackles (ant) Cardiovascular: S1 Abdomen: Soft Neuro Exam: Alert Extremities: Other (1+edema) Labs Laboratory Tests Test 10/24/16 13:16 10/24/16 15:20 10/24/16 17:59 10/24/16 21:32 Glucose (Fingerstick) 90mg/dL (70-99) 81mg/dL (70-99) 115mg/dL (70-99) Hepatitis B Surface Antigen Negative (Negative) Hepatitis B Surface Antibody Non reactive (.) Test 10/25/16 04:30 10/25/16 08:45 10/25/16 08:51 10/25/16 12:28 Sodium Level 143mmol/L (136-145) Potassium Level 4.0mmol/L (3.5-5.1) Chloride Level 106mmol/L (98-107) Carbon Dioxide Level 26mmol/L (21-32) Anion Gap 11 (6-14) Blood Urea Nitrogen 35mg/dL (8-26) Creatinine 2.6mg/dL (0.7-1.3) Estimated GFR (Cockcroft-Gault) 24.5 Glucose Level 92mg/dL (70-99) Calcium Level 8.2mg/dL (8.5-10.1) Phosphorus Level 3.1mg/dL (2.6-4.7) Magnesium Level 2.2mg/dL (1.8-2.4) Albumin 2.7g/dL (3.4-5.0) O2 Saturation 95% (92-99) Arterial Blood pH 7.37 (7.35-7.45) Arterial Blood pCO2 at Patient Temp 45mmHg (35-46) Arterial Blood pO2 at Patient Temp 77mmHg (65-108) Arterial Blood HCO3 25mmol/L (21-28) Arterial Blood Base Excess 0mmol/L (-3-3) FiO2 60 Glucose (Fingerstick) 81mg/dL (70-99) 79mg/dL (70-99) Test 3/12/17 16:34 10/25/16 21:17 10/26/16 04:46 10/26/16 04:56 Glucose (Fingerstick) 113mg/dL (70-99) 195mg/dL (70-99) White Blood Count 6.2x10^3/uL (4.0-11.0) Red Blood Count 3.41x10^6/uL (4.30-5.70) Hemoglobin 9.8g/dL (13.0-17.5) Hematocrit 28.8% (39.0-53.0) Mean Corpuscular Volume 85fL (79-100) Mean Corpuscular Hemoglobin 29pg (25-35) Mean Corpuscular Hemoglobin Concent 34g/dL (31-37) Red Cell Distribution Width 14.3% (11.5-14.5) Platelet Count 80x10^3/uL (140-400) Neutrophils (%) (Auto) 84% (31-73) Lymphocytes (%) (Auto) 9% (24-48) Monocytes (%) (Auto) 6% (0-9) Eosinophils (%) (Auto) 1% (0-3) Basophils (%) (Auto) 1% (0-3) Neutrophils # (Auto) 5.2x10^3uL (1.8-7.7) Lymphocytes # (Auto) 0.5x10^3/uL (1.0-4.8) Monocytes # (Auto) 0.3x10^3/uL (0.0-1.1) Eosinophils # (Auto) 0.1x10^3/uL (0.0-0.7) Basophils # (Auto) 0.1x10^3/uL (0.0-0.2) Sodium Level 140mmol/L (136-145) Potassium Level 4.0mmol/L (3.5-5.1) Chloride Level 104mmol/L (98-107) Carbon Dioxide Level 27mmol/L (21-32) Anion Gap 9 (6-14) Blood Urea Nitrogen 27mg/dL (8-26) Creatinine 2.0mg/dL (0.7-1.3) Estimated GFR (Cockcroft-Gault) 33.1 Glucose Level 232mg/dL (70-99) Calcium Level 8.4mg/dL (8.5-10.1) Phosphorus Level 2.4mg/dL (2.6-4.7) Albumin 2.6g/dL (3.4-5.0) Magnesium Level 2.0mg/dL (1.8-2.4) Laboratory Tests Test 10/25/16 12:28 10/25/16 16:34 10/25/16 21:17 10/26/16 04:46 Glucose (Fingerstick) 79mg/dL (70-99) 113mg/dL (70-99) 195mg/dL (70-99) White Blood Count 6.2x10^3/uL (4.0-11.0) Red Blood Count 3.41x10^6/uL (4.30-5.70) Hemoglobin 9.8g/dL (13.0-17.5) Hematocrit 28.8% (39.0-53.0) Mean Corpuscular Volume 85fL (79-100) Mean Corpuscular Hemoglobin 29pg (25-35) Mean Corpuscular Hemoglobin Concent 34g/dL (31-37) Red Cell Distribution Width 14.3% (11.5-14.5) Platelet Count 80x10^3/uL (140-400) Neutrophils (%) (Auto) 84% (31-73) Lymphocytes (%) (Auto) 9% (24-48) Monocytes (%) (Auto) 6% (0-9) Eosinophils (%) (Auto) 1% (0-3) Basophils (%) (Auto) 1% (0-3) Neutrophils # (Auto) 5.2x10^3uL (1.8-7.7) Lymphocytes # (Auto) 0.5x10^3/uL (1.0-4.8) Monocytes # (Auto) 0.3x10^3/uL (0.0-1.1) Eosinophils # (Auto) 0.1x10^3/uL (0.0-0.7) Basophils # (Auto) 0.1x10^3/uL (0.0-0.2) Sodium Level 140mmol/L (136-145) Potassium Level 4.0mmol/L (3.5-5.1) Chloride Level 104mmol/L (98-107) Carbon Dioxide Level 27mmol/L (21-32) Anion Gap 9 (6-14) Blood Urea Nitrogen 27mg/dL (8-26) Creatinine 2.0mg/dL (0.7-1.3) Estimated GFR (Cockcroft-Gault) 33.1 Glucose Level 232mg/dL (70-99) Calcium Level 8.4mg/dL (8.5-10.1) Phosphorus Level 2.4mg/dL (2.6-4.7) Albumin 2.6g/dL (3.4-5.0) Test 10/26/16 04:56 Magnesium Level 2.0mg/dL (1.8-2.4) Medications Active Scripts Medications Dose Route/Sig Days Date Category Zofran Odt (Ondansetron) 8 Mg Tab.rapdis 1 Tab PO Q8HRS 09/30/16 Reported Colace (Docusate Sodium) 100 Mg Capsule 1 Cap PO BID 09/30/16 Reported Hydrocodone-Apap 7.5-325 (Hydrocodone Bit/Acetaminophen) 1 Each Tablet 1 Tab PO Q3HRS PRN 09/30/16 Reported Glimepiride 4 Mg Tablet 1 Tab PO BID 09/29/16 Reported Glimepiride 2 Mg Tablet 1 Tab PO BID 09/29/16 Reported Levemir (Insulin Detemir) 100 Unit/1 Ml Vial 30 Unit SQ HS 06/29/14 Reported Comments cxr reviewed improved Impression . 1. Acute hypoxic respiratory failure sec to heart failure 2. Clinically, less likely pneumonia. 3. Underlying chronic obstructive pulmonary disease. 4. Abnormal chest x-ray with diffuse interstitial infiltrates, more compatible with pulmonary edema 5. Acute kidney injury on chronic kidney disease. s/p emergent dialysis. 6. Hypoglycemia, now being corrected. 7. Normal ejection fraction on recent echo. Plan . 1. HD per Dr Chavez case d/w with him negative fluid balance 2. Continue BiPAP. 3. Titrated 02 4. Repeat chest x-ray in am 5. Continue bronchodilators. 6. Continue antibiotics. 7. Monitor blood sugars. MANUELITO MUÑOZ MD Oct 26, 2016 10:40
--- NOTE | 2016-10-26 10:48 | PDOC ---
PROGRESS NOTES Chief Complaint Chief Complaint Hypoxic respiratory failure ASSESSMENT AND PLAN: 1. CHF, diastolic: thought to be etiology of respir failure, in conjunction with RHETT/fluid retention. CXR w/ slightly decreased bilat infiltrates. remains BiPAP dependent 2. RHETT: improving. prob vasomotor etiology. suspect underlying CKD as well. appreciate nephrology service help with management. s/p HD x2 days 3. Left foot osteomyelitis : s/p I&D on 10/[address] Luis. wound vac in place. on zosyn 4. DM2: FSBG difficult to manage; currently fair control. hypoglycemia on decreased home dose - ? compliance at home 5. Afib: borderline rate control currently. on dilt qid, metoprolol IV PRN 6. HTN: well controlled 7. COPD: appreciate Dr Thomson's input. nebs, suppl O2 8. Acute diarrhea: resolved 9. Metab acidosis: resolved 10. Thrombocytopenia: chronic?; suspect ITP. monitor 11. Anemia: normocytic, normochromic. appears acute, but suspect rehydration drop. monitor OB stools. prob chronic due to renal failure, inflammation. obtain anemia labs 12. Nutrition: on PPN while on BiPAP 13. Prophylaxis: heparin SQ, H2B 10. Mod.severe malnutrition, POA Vitals Vitals Vital Signs Date Time Temp Pulse Resp B/P Pulse Ox O2 Delivery O2 Flow Rate FiO2 10/26/16 09:32 112 179/70 10/26/16 08:54 96 BiPAP/CPAP 10/26/16 08:00 98.5 23 98.5 Physical Exam General: Alert, Cooperative Heart: Normal S1, Normal S2, Other (2/6 systolic murmur to LLS border; irreg) Lungs: Crackles (ant) Abdomen: Normal bowel sounds, Soft, No tenderness Extremities: No clubbing, No cyanosis Skin: No rashes, Other (left foot wound covered with wound vac. bilat distal foot amputations) Labs LABS Laboratory Tests Test 10/25/16 12:28 10/25/16 16:34 10/25/16 21:17 10/26/16 04:46 Glucose (Fingerstick) 79mg/dL (70-99) 113mg/dL (70-99) 195mg/dL (70-99) White Blood Count 6.2x10^3/uL (4.0-11.0) Red Blood Count 3.41x10^6/uL (4.30-5.70) Hemoglobin 9.8g/dL (13.0-17.5) Hematocrit 28.8% (39.0-53.0) Mean Corpuscular Volume 85fL (79-100) Mean Corpuscular Hemoglobin 29pg (25-35) Mean Corpuscular Hemoglobin Concent 34g/dL (31-37) Red Cell Distribution Width 14.3% (11.5-14.5) Platelet Count 80x10^3/uL (140-400) Neutrophils (%) (Auto) 84% (31-73) Lymphocytes (%) (Auto) 9% (24-48) Monocytes (%) (Auto) 6% (0-9) Eosinophils (%) (Auto) 1% (0-3) Basophils (%) (Auto) 1% (0-3) Neutrophils # (Auto) 5.2x10^3uL (1.8-7.7) Lymphocytes # (Auto) 0.5x10^3/uL (1.0-4.8) Monocytes # (Auto) 0.3x10^3/uL (0.0-1.1) Eosinophils # (Auto) 0.1x10^3/uL (0.0-0.7) Basophils # (Auto) 0.1x10^3/uL (0.0-0.2) Sodium Level 140mmol/L (136-145) Potassium Level 4.0mmol/L (3.5-5.1) Chloride Level 104mmol/L (98-107) Carbon Dioxide Level 27mmol/L (21-32) Anion Gap 9 (6-14) Blood Urea Nitrogen 27mg/dL (8-26) Creatinine 2.0mg/dL (0.7-1.3) Estimated GFR (Cockcroft-Gault) 33.1 Glucose Level 232mg/dL (70-99) Calcium Level 8.4mg/dL (8.5-10.1) Phosphorus Level 2.4mg/dL (2.6-4.7) Albumin 2.6g/dL (3.4-5.0) Test 10/26/16 04:56 Magnesium Level 2.0mg/dL (1.8-2.4) Review of Systems Review of Systems on BiPAP. denies pain. Comment Review of Relevant POLA RODRIGUEZ MD Oct 26, 2016 10:48
--- NOTE | 2016-10-26 11:21 | PDOC ---
Renal-Progress Notes Subjective Notes Notes SOB History of Present Illness Hx of present illness STABLE Vitals Vitals Vital Signs Date Time Temp Pulse Resp B/P Pulse Ox O2 Delivery O2 Flow Rate FiO2 10/26/16 09:32 112 179/70 10/26/16 08:54 96 BiPAP/CPAP 10/26/16 08:00 98.5 23 98.5 Weight Weight [ ] I.O. Intake and Output Intake and Output 10/26/16 07:00 Intake Total 1490 ml Output Total 692 ml Balance 798 ml Intake Oral 850 ml IV Total 640 ml Output Urine Total 692 ml # Bowel Movements 1 Labs Labs Laboratory Tests Test 10/25/16 12:28 10/25/16 16:34 10/25/16 21:17 10/26/16 04:46 Glucose (Fingerstick) 79mg/dL (70-99) 113mg/dL (70-99) 195mg/dL (70-99) White Blood Count 6.2x10^3/uL (4.0-11.0) Red Blood Count 3.41x10^6/uL (4.30-5.70) Hemoglobin 9.8g/dL (13.0-17.5) Hematocrit 28.8% (39.0-53.0) Mean Corpuscular Volume 85fL (79-100) Mean Corpuscular Hemoglobin 29pg (25-35) Mean Corpuscular Hemoglobin Concent 34g/dL (31-37) Red Cell Distribution Width 14.3% (11.5-14.5) Platelet Count 80x10^3/uL (140-400) Neutrophils (%) (Auto) 84% (31-73) Lymphocytes (%) (Auto) 9% (24-48) Monocytes (%) (Auto) 6% (0-9) Eosinophils (%) (Auto) 1% (0-3) Basophils (%) (Auto) 1% (0-3) Neutrophils # (Auto) 5.2x10^3uL (1.8-7.7) Lymphocytes # (Auto) 0.5x10^3/uL (1.0-4.8) Monocytes # (Auto) 0.3x10^3/uL (0.0-1.1) Eosinophils # (Auto) 0.1x10^3/uL (0.0-0.7) Basophils # (Auto) 0.1x10^3/uL (0.0-0.2) Sodium Level 140mmol/L (136-145) Potassium Level 4.0mmol/L (3.5-5.1) Chloride Level 104mmol/L (98-107) Carbon Dioxide Level 27mmol/L (21-32) Anion Gap 9 (6-14) Blood Urea Nitrogen 27mg/dL (8-26) Creatinine 2.0mg/dL (0.7-1.3) Estimated GFR (Cockcroft-Gault) 33.1 Glucose Level 232mg/dL (70-99) Calcium Level 8.4mg/dL (8.5-10.1) Phosphorus Level 2.4mg/dL (2.6-4.7) Albumin 2.6g/dL (3.4-5.0) Test 10/26/16 04:56 Magnesium Level 2.0mg/dL (1.8-2.4) Micro Micro Microbiology 10/20/16 Blood Culture - Final, Complete 10/20/16 Blood Culture Result 1 (HERBERT) - Final, Complete 10/21/16 Urine Culture - Final, Complete 10/21/16 Urine Culture Result 1 (HERBERT) - Final, Complete 10/22/16 Gram Stain - Final, Complete Review of Systems Constitutional: yes: alert Ears/Nose/Throat: Yes: no symptom reported Pulmonary: Yes dyspnea Genitourinary: Yes: no symptom reported Musculoskeletal: Yes: muscle stiffness Skin: Yes no symptom reported Psychiatric/Neurological: Yes: no symptom reported Physical Exam General Appearance: no apparent distress Skin: warm Respiratory: decreased breath sounds Heart: S1S2, RRR Abdomen: soft, bowel sounds present Genitourinary: bladder flat Extremities: pulses present Neurology: alert, oriented, follow commands Musculoskeletal: Osteoarthritis, Other (foot osteomyelitis) Assessment Assessment IMP CHF RHETT PROB CKD HYPOXIA RESP FAILURE PLAN IV LASIX HD TODAY UF ABOUT 2 LITERS TOLERATED D/W DR MUÑOZ WILL FOLLOW BEVERLY EDWARD MD Oct 26, 2016 11:21
[2016-10-26] MEDS: FUROSEMIDE 40 MG/4 ML VIAL IVP SCH ×2 (12:16→12:51)
--- NOTE | 2016-10-26 13:34 | PDOC ---
Subjective: Subjective: Doing okay GI-sellers. Objective: Objective: Per RN - stooling, no diarrhea. Not eating much w/ BiPAP, on PPN. Vital Signs: Vital Signs Date Time Temp Pulse Resp B/P Pulse Ox O2 Delivery O2 Flow Rate FiO2 10/26/16 13:00 97 22 161/60 100 BiPAP/CPAP 10/26/16 12:00 98.1 98.1 Labs: Laboratory Tests Test 10/25/16 16:34 10/25/16 21:17 10/26/16 12:10 Glucose (Fingerstick) 113mg/dL (70-99) 195mg/dL (70-99) 209mg/dL (70-99) Imaging: CXR 10/26/16 Impression: 1. Bilateral airspace disease, slightly decreased from prior. PE: GEN: NAD LUNGS: crackles, on BiPAP HEART: tachycardic ABD: NABS, S/ND/NT NEURO/PSYCH: A & O 3 A/P: Diarrhea - improved -C Diff neg -no previous colonoscopy -on Imodium CHF, resp failure -on BiPAP, PPN -- Stable/improved GI-sellers. DOROTHY SHANNON Oct 26, 2016 13:34
[2016-10-26] MEDS ORDERED: IV NORMAL SALINE 1000ML BAG 1,000 ML IV PRN ×2 (13:55)
[2016-10-26] MEDS ORDERED: DIALYSIS PATIENT. MC PRN (14:00)
[2016-10-26] MEDS: HYDROCODONE/APAP 7.5/325MG TABLET. PO PRN (15:27)
[2016-10-26] MEDS ORDERED: FAMOTIDINE 20 MG/2 ML VIAL IVP SCH (21:00)
[2016-10-26] MEDS: ATORVASTATIN CALCIUM 20 MG TABLET PO SCH (21:17)
[2016-10-26] MEDS: DEXTROSE 50% 25 GM / 50ML DISP.SYRIN. IV PRN (23:42)
[2016-10-27] VITALS (21 sets, daily range): BP systolic 125–173; BP diastolic 53–82
[2016-10-27] MEDS: PIPERACILLIN/TAZOBACTAM 2.25 GM in IV NORMAL SALINE 50ML 50 ML IV SCH ×2 (00:01→06:03)
[2016-10-27 00:27] LABS: CALCIUM 8.5 mg/dL (8.5-10.1); CREATININE 1.7 mg/dL (0.7-1.3); GFR 39.9; POTASSIUM 3.2 mmol/L (3.5-5.1)
[2016-10-27] MEDS: AA 2.75%/CALCIUM/LYTES/D5W 1,000 ML IV SCH (00:52)
[2016-10-27] MEDS: DILTIAZEM HCL 30 MG TABLET PO SCH ×3 (06:03→11:27)
[2016-10-27] MEDS: hydrALAZINE 20 MG/ML VIAL. IVP PRN (06:05)
[2016-10-27 06:13] LABS: ALBUMIN 2.3 g/dL (3.4-5.0); CALCIUM 8.8 mg/dL (8.5-10.1); CREATININE 1.8 mg/dL (0.7-1.3); GFR 37.4
[2016-10-27 06:15] LABS: POTASSIUM 3.7 mmol/L (3.5-5.1)
[2016-10-27] MEDS: INSULIN ASPART 300 UNITS/3 ML INSULN.PEN SQ SCH ×6 (07:30→16:51)
--- NOTE | 2016-10-27 07:44 | PDOC ---
Infectious Disease Note Subjective Subjective States ok Foot ok ROS ROS GEN: Denies fevers, chills, sweats HEENT: Denies blurred vision, sore throat CV: Denies chest pain RESP: Denies shortness of air, cough GI: Denies n/v/d NEURO: Denies confusion, dizziness MSK: Denies weakness, joint pain/swelling Vital Sign Vital Signs Vital Signs Date Time Temp Pulse Resp B/P Pulse Ox O2 Delivery O2 Flow Rate FiO2 10/27/16 06:05 173/69 10/27/16 06:00 78 14 99 Venturi Mask 10/27/16 04:00 96.7 96.7 10/27/16 04:00 12.0 Physical Exam PHYSICAL EXAM GENERAL: NAD, Alert, on Ventimask HEENT: PERRL, OC/OP - dry NECK: Supple, no JVD, no LN LUNGS: Clear HEART: S1S2, no gallop, no murmur ABD: Soft, NT, no organomegaly, no rebound [place] EXT: No edema, no cyanosis. 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, oriented x 3, no focal neurologic deficit SKIN: No rash IV: RIJ Labs Lab Laboratory Tests Test 10/26/16 12:10 10/26/16 16:33 10/26/16 23:39 10/26/16 23:50 Glucose (Fingerstick) 209mg/dL (70-99) 78mg/dL (70-99) 37mg/dL (70-99) 135mg/dL (70-99) Test 10/26/16 23:58 10/27/16 04:38 Sodium Level 143mmol/L (136-145) 142mmol/L (136-145) Potassium Level 3.2mmol/L (3.5-5.1) 3.7mmol/L (3.5-5.1) Chloride Level 106mmol/L (98-107) 105mmol/L (98-107) Carbon Dioxide Level 31mmol/L (21-32) 31mmol/L (21-32) Anion Gap 6 (6-14) 6 (6-14) Blood Urea Nitrogen 21mg/dL (8-26) 23mg/dL (8-26) Creatinine 1.7mg/dL (0.7-1.3) 1.8mg/dL (0.7-1.3) Estimated GFR (Cockcroft-Gault) 39.9 37.4 Glucose Level 140mg/dL (70-99) 102mg/dL (70-99) Calcium Level 8.5mg/dL (8.5-10.1) 8.8mg/dL (8.5-10.1) Magnesium Level 1.8mg/dL (1.8-2.4) Phosphorus Level 3.0mg/dL (2.6-4.7) Albumin 2.3g/dL (3.4-5.0) Objective Assessment BC + ,Group A strep 10/20 SOA - improved on Ventimask Hypoglycemia -better Extensive left foot infection s/p I and D 10/[address] MSSA/Group A/ Alcaligenes Septic shock Lactic acidosis DM Plan Plan of Care Discont zosyn with Alcaligenes showing up and begin Meropenem. F/u sensitivities Repeat Blood cults pending Local wound care F/u labs supportive care CADY REYNA MD Oct 27, 2016 07:44
[2016-10-27] MEDS: INSULIN DETEMIR 300 UNITS/3 ML INSULN.PEN. SQ SCH (08:00)
[2016-10-27] MEDS: ASPIRIN ENTERIC COATED 81 MG TABLET.DR. PO SCH (08:08)
[2016-10-27] MEDS: FUROSEMIDE 40 MG/4 ML VIAL IVP SCH ×2 (08:08→14:04)
[2016-10-27] MEDS: HEPARIN PF for SUB-Q USE 5,000 UNIT/0.5 ML VIAL. SQ SCH ×2 (08:11→20:47)
[2016-10-27] MEDS: DOCUSATE SODIUM 100 MG CAPSULE PO SCH ×2 (08:12→20:43)
--- NOTE | 2016-10-27 09:41 | PDOC ---
PULMONARY PROGRESS NOTES Subjective OFF BIPAP Vitals Vital Signs Date Time Temp Pulse Resp B/P Pulse Ox O2 Delivery O2 Flow Rate FiO2 10/27/16 09:00 114 16 132/62 95 Nasal Cannula 4.0 10/27/16 08:00 97.6 97.6 General: Alert Lungs: Clear Cardiovascular: S1, S2 Abdomen: Soft, Non-tender Neuro Exam: Alert, Oriented Extremities: Other (1+edema) Skin: Warm Labs Laboratory Tests Test 10/25/16 12:28 10/25/16 16:34 10/25/16 21:17 10/26/16 04:46 Glucose (Fingerstick) 79mg/dL (70-99) 113mg/dL (70-99) 195mg/dL (70-99) White Blood Count 6.2x10^3/uL (4.0-11.0) Red Blood Count 3.41x10^6/uL (4.30-5.70) Hemoglobin 9.8g/dL (13.0-17.5) Hematocrit 28.8% (39.0-53.0) Mean Corpuscular Volume 85fL (79-100) Mean Corpuscular Hemoglobin 29pg (25-35) Mean Corpuscular Hemoglobin Concent 34g/dL (31-37) Red Cell Distribution Width 14.3% (11.5-14.5) Platelet Count 80x10^3/uL (140-400) Neutrophils (%) (Auto) 84% (31-73) Lymphocytes (%) (Auto) 9% (24-48) Monocytes (%) (Auto) 6% (0-9) Eosinophils (%) (Auto) 1% (0-3) Basophils (%) (Auto) 1% (0-3) Neutrophils # (Auto) 5.2x10^3uL (1.8-7.7) Lymphocytes # (Auto) 0.5x10^3/uL (1.0-4.8) Monocytes # (Auto) 0.3x10^3/uL (0.0-1.1) Eosinophils # (Auto) 0.1x10^3/uL (0.0-0.7) Basophils # (Auto) 0.1x10^3/uL (0.0-0.2) Sodium Level 140mmol/L (136-145) Potassium Level 4.0mmol/L (3.5-5.1) Chloride Level 104mmol/L (98-107) Carbon Dioxide Level 27mmol/L (21-32) Anion Gap 9 (6-14) Blood Urea Nitrogen 27mg/dL (8-26) Creatinine 2.0mg/dL (0.7-1.3) Estimated GFR (Cockcroft-Gault) 33.1 Glucose Level 232mg/dL (70-99) Calcium Level 8.4mg/dL (8.5-10.1) Phosphorus Level 2.4mg/dL (2.6-4.7) Albumin 2.6g/dL (3.4-5.0) Test 10/26/16 04:56 10/26/16 12:10 10/26/16 16:33 10/26/16 23:39 Magnesium Level 2.0mg/dL (1.8-2.4) Glucose (Fingerstick) 209mg/dL (70-99) 78mg/dL (70-99) 37mg/dL (70-99) Test 10/26/16 23:50 10/26/16 23:58 10/27/16 04:38 10/27/16 08:10 Glucose (Fingerstick) 135mg/dL (70-99) 127mg/dL (70-99) Sodium Level 143mmol/L (136-145) 142mmol/L (136-145) Potassium Level 3.2mmol/L (3.5-5.1) 3.7mmol/L (3.5-5.1) Chloride Level 106mmol/L (98-107) 105mmol/L (98-107) Carbon Dioxide Level 31mmol/L (21-32) 31mmol/L (21-32) Anion Gap 6 (6-14) 6 (6-14) Blood Urea Nitrogen 21mg/dL (8-26) 23mg/dL (8-26) Creatinine 1.7mg/dL (0.7-1.3) 1.8mg/dL (0.7-1.3) Estimated GFR (Cockcroft-Gault) 39.9 37.4 Glucose Level 140mg/dL (70-99) 102mg/dL (70-99) Calcium Level 8.5mg/dL (8.5-10.1) 8.8mg/dL (8.5-10.1) Magnesium Level 1.8mg/dL (1.8-2.4) Phosphorus Level 3.0mg/dL (2.6-4.7) Albumin 2.3g/dL (3.4-5.0) Laboratory Tests Test 10/26/16 12:10 10/26/16 16:33 10/26/16 23:39 10/26/16 23:50 Glucose (Fingerstick) 209mg/dL (70-99) 78mg/dL (70-99) 37mg/dL (70-99) 135mg/dL (70-99) Test 10/26/16 23:58 10/27/16 04:38 10/27/16 08:10 Sodium Level 143mmol/L (136-145) 142mmol/L (136-145) Potassium Level 3.2mmol/L (3.5-5.1) 3.7mmol/L (3.5-5.1) Chloride Level 106mmol/L (98-107) 105mmol/L (98-107) Carbon Dioxide Level 31mmol/L (21-32) 31mmol/L (21-32) Anion Gap 6 (6-14) 6 (6-14) Blood Urea Nitrogen 21mg/dL (8-26) 23mg/dL (8-26) Creatinine 1.7mg/dL (0.7-1.3) 1.8mg/dL (0.7-1.3) Estimated GFR (Cockcroft-Gault) 39.9 37.4 Glucose Level 140mg/dL (70-99) 102mg/dL (70-99) Calcium Level 8.5mg/dL (8.5-10.1) 8.8mg/dL (8.5-10.1) Magnesium Level 1.8mg/dL (1.8-2.4) Phosphorus Level 3.0mg/dL (2.6-4.7) Albumin 2.3g/dL (3.4-5.0) Glucose (Fingerstick) 127mg/dL (70-99) Medications Active Scripts Medications Dose Route/Sig Days Date Category Zofran Odt (Ondansetron) 8 Mg Tab.rapdis 1 Tab PO Q8HRS 09/30/16 Reported Colace (Docusate Sodium) 100 Mg Capsule 1 Cap PO BID 09/30/16 Reported Hydrocodone-Apap 7.5-325 (Hydrocodone Bit/Acetaminophen) 1 Each Tablet 1 Tab PO Q3HRS PRN 09/30/16 Reported Glimepiride 4 Mg Tablet 1 Tab PO BID 09/29/16 Reported Glimepiride 2 Mg Tablet 1 Tab PO BID 09/29/16 Reported Levemir (Insulin Detemir) 100 Unit/1 Ml Vial 30 Unit SQ HS 06/29/14 Reported Comments cxr reviewed improved Impression . 1. Acute hypoxic respiratory failure sec to heart failure 2. Clinically, less likely pneumonia. 3. Underlying chronic obstructive pulmonary disease. 4. Abnormal chest x-ray with diffuse interstitial infiltrates, more compatible with pulmonary edema 5. Acute kidney injury on chronic kidney disease. s/p emergent dialysis. 6. Hypoglycemia, now being corrected. 7. Normal ejection fraction on recent echo. Plan . 1. REPEAT CXR 2. PRN BIPAP 3. Titrated 02 4. TRANSFER OUT OF ICU 5. Continue bronchodilators. 6. Continue antibiotics. 7. Monitor blood sugars. MANUELITO MUÑOZ MD Oct 27, 2016 09:41
[2016-10-27] MEDS: IPRATRPIUM/ALBUTEROL 0.5/2.5MG 3 ML NEBU. NEB SCH ×4 (09:57→20:05)
--- NOTE | 2016-10-27 09:57 | PDOC ---
PROGRESS NOTES Chief Complaint Chief Complaint Hypoxic respiratory failure ASSESSMENT AND PLAN: 1. CHF, diastolic: thought to be etiology of respir failure, in conjunction with RHETT/fluid retention. improving clinically 2. RHETT: improving. suspect underlying CKD as well. s/p HD x2 days; IV lasix, HD as per Dr Chavez 3. Hypokalemia: improved. monitor, replete as indicated 3. Left foot osteomyelitis : s/p I&D on 10/[address] Luis. wound vac in place. MSSA/Strep A/Alcaligenes isolated. switched to Merrem as per Dr Ludwig 4. DM2: hypoglycemic last PM, but good control today. cont to monitor 5. Afib: poor control this AM. appreciate cardiology help w/ management: BB incresed, CCB convert to daily dosing 6. HTN: well controlled 7. COPD: appreciate Dr Thomson's input. nebs, suppl O2 8. Acute diarrhea: resolved 9. Metab acidosis: resolved 10. Thrombocytopenia: stable in 80s-90s. chronic?; suspect ITP. monitor 11. Anemia: normocytic, normochromic. appears acute, but suspect rehydration drop. monitor OB stools. prob chronic due to renal failure, inflammation. obtain anemia labs 12. Nutrition: on PPN while on BiPAP 13. Prophylaxis: heparin SQ, H2B 10. Mod.severe malnutrition, POA Vitals Vitals Vital Signs Date Time Temp Pulse Resp B/P Pulse Ox O2 Delivery O2 Flow Rate FiO2 10/27/16 09:00 114 16 132/62 95 Nasal Cannula 4.0 10/27/16 08:00 97.6 97.6 Physical Exam General: Alert, Cooperative, No acute distress Heart: Normal S1, Normal S2, Other (2/6 systolic murmur to LLS border; irreg, tachy) Lungs: Crackles (ant) Abdomen: Normal bowel sounds, Soft, No tenderness Extremities: No clubbing, No cyanosis Skin: No rashes, Other (left foot wound covered with wound vac. bilat distal foot amputations) Labs LABS Laboratory Tests Test 10/26/16 12:10 10/26/16 16:33 10/26/16 23:39 10/26/16 23:50 Glucose (Fingerstick) 209mg/dL (70-99) 78mg/dL (70-99) 37mg/dL (70-99) 135mg/dL (70-99) Test 10/26/16 23:58 10/27/16 04:38 10/27/16 08:10 Sodium Level 143mmol/L (136-145) 142mmol/L (136-145) Potassium Level 3.2mmol/L (3.5-5.1) 3.7mmol/L (3.5-5.1) Chloride Level 106mmol/L (98-107) 105mmol/L (98-107) Carbon Dioxide Level 31mmol/L (21-32) 31mmol/L (21-32) Anion Gap 6 (6-14) 6 (6-14) Blood Urea Nitrogen 21mg/dL (8-26) 23mg/dL (8-26) Creatinine 1.7mg/dL (0.7-1.3) 1.8mg/dL (0.7-1.3) Estimated GFR (Cockcroft-Gault) 39.9 37.4 Glucose Level 140mg/dL (70-99) 102mg/dL (70-99) Calcium Level 8.5mg/dL (8.5-10.1) 8.8mg/dL (8.5-10.1) Magnesium Level 1.8mg/dL (1.8-2.4) Phosphorus Level 3.0mg/dL (2.6-4.7) Albumin 2.3g/dL (3.4-5.0) Glucose (Fingerstick) 127mg/dL (70-99) Review of Systems Review of Systems breathing better, denies pain POLA RODRIGUEZ MD Oct 27, 2016 09:57
[2016-10-27 10:36] LABS: % SAT IRON 26 % (15-34); IRON,SERUM 25 ug/dL (65-175)
--- NOTE | 2016-10-27 11:12 | PDOC ---
Renal-Progress Notes Subjective Notes Notes FEELING BETTER History of Present Illness Hx of present illness BETTER Vitals Vitals Vital Signs Date Time Temp Pulse Resp B/P Pulse Ox O2 Delivery O2 Flow Rate FiO2 10/27/16 11:00 126 15 132/66 96 Nasal Cannula 4.0 10/27/16 08:00 97.6 97.6 Weight Weight [ ] I.O. Intake and Output Intake and Output 10/27/16 07:00 Intake Total 2098 ml Output Total 866 ml Balance 1232 ml Intake Oral 1102 ml IV Total 996 ml Output Urine Total 866 ml # Bowel Movements 1 Labs Labs Laboratory Tests Test 10/26/16 12:10 10/26/16 16:33 10/26/16 23:39 10/26/16 23:50 Glucose (Fingerstick) 209mg/dL (70-99) 78mg/dL (70-99) 37mg/dL (70-99) 135mg/dL (70-99) Test 10/26/16 23:58 10/27/16 04:38 10/27/16 08:10 Sodium Level 143mmol/L (136-145) 142mmol/L (136-145) Potassium Level 3.2mmol/L (3.5-5.1) 3.7mmol/L (3.5-5.1) Chloride Level 106mmol/L (98-107) 105mmol/L (98-107) Carbon Dioxide Level 31mmol/L (21-32) 31mmol/L (21-32) Anion Gap 6 (6-14) 6 (6-14) Blood Urea Nitrogen 21mg/dL (8-26) 23mg/dL (8-26) Creatinine 1.7mg/dL (0.7-1.3) 1.8mg/dL (0.7-1.3) Estimated GFR (Cockcroft-Gault) 39.9 37.4 Glucose Level 140mg/dL (70-99) 102mg/dL (70-99) Calcium Level 8.5mg/dL (8.5-10.1) 8.8mg/dL (8.5-10.1) Magnesium Level 1.8mg/dL (1.8-2.4) Reticulocyte Count (auto) 0.4% (0.5-2.5) Phosphorus Level 3.0mg/dL (2.6-4.7) Iron Level 25ug/dL (65-175) Total Iron Binding Capacity 98ug/dL (250-450) Iron Saturation 26% (15-34) Ferritin 470ng/mL (26-388) Albumin 2.3g/dL (3.4-5.0) Glucose (Fingerstick) 127mg/dL (70-99) Micro Micro Microbiology 10/25/16 Blood Culture - Preliminary, Resulted NO GROWTH AFTER 1 DAY 10/21/16 Urine Culture - Final, Complete 10/21/16 Urine Culture Result 1 (HERBERT) - Final, Complete 10/22/16 Gram Stain - Final, Complete Review of Systems Constitutional: yes: alert Ears/Nose/Throat: Yes: no symptom reported Pulmonary: Yes dyspnea Genitourinary: Yes: no symptom reported Musculoskeletal: Yes: muscle stiffness Skin: Yes no symptom reported Psychiatric/Neurological: Yes: no symptom reported Physical Exam General Appearance: no apparent distress Skin: warm Respiratory: decreased breath sounds Heart: S1S2, RRR Abdomen: soft, bowel sounds present Genitourinary: bladder flat Extremities: pulses present Neurology: alert, oriented, follow commands Musculoskeletal: Osteoarthritis, Other (foot osteomyelitis) Assessment Assessment IMP CHF RHETT PROB CKD HYPOXIA RESP FAILURE ST-FROM [facility]ONIST PLAN IV LASIX HD TOMORROW TENTATIVE ENC PO STOP CLINIMIX AFTER CURRENT BAG WILL FOLLOW BEVERLY EDWARD MD Oct 27, 2016 11:12
[2016-10-27] MEDS: MEROPENEM 500 MG in IV NORMAL SALINE 50ML 50 ML IV SCH ×3 (11:26→23:37)
[2016-10-27] MEDS: METOPROLOL TART IMMED RELEASE 25 MG TABLET PO SCH ×2 (11:26→20:43)
[2016-10-27 11:54] LABS: FOLATE 4.39 ng/ml (3.2-20.0)
[2016-10-27] MEDS: BUDESONIDE 0.5 MG/2 ML NEBU NEB SCH ×2 (12:11→20:06)
--- NOTE | 2016-10-27 12:15 | PDOC ---
G I PROGRESS NOTE Subjective Had loose stool after largish breakfast this AM, otherwise no diarrhea. Denies abdominal pain, etc. Physical Exam Lungs clear anteriorly. RRR, tachy. Abdomen soft, not distended nor tender. Normal bowel sounds. Review of Relevant I have reviewed the following items jovan (where applicable) has been applied. Labs Laboratory Tests Test 10/25/16 12:28 10/25/16 16:34 10/25/16 21:17 10/26/16 04:46 Glucose (Fingerstick) 79mg/dL (70-99) 113mg/dL (70-99) 195mg/dL (70-99) White Blood Count 6.2x10^3/uL (4.0-11.0) Red Blood Count 3.41x10^6/uL (4.30-5.70) Hemoglobin 9.8g/dL (13.0-17.5) Hematocrit 28.8% (39.0-53.0) Mean Corpuscular Volume 85fL (79-100) Mean Corpuscular Hemoglobin 29pg (25-35) Mean Corpuscular Hemoglobin Concent 34g/dL (31-37) Red Cell Distribution Width 14.3% (11.5-14.5) Platelet Count 80x10^3/uL (140-400) Neutrophils (%) (Auto) 84% (31-73) Lymphocytes (%) (Auto) 9% (24-48) Monocytes (%) (Auto) 6% (0-9) Eosinophils (%) (Auto) 1% (0-3) Basophils (%) (Auto) 1% (0-3) Neutrophils # (Auto) 5.2x10^3uL (1.8-7.7) Lymphocytes # (Auto) 0.5x10^3/uL (1.0-4.8) Monocytes # (Auto) 0.3x10^3/uL (0.0-1.1) Eosinophils # (Auto) 0.1x10^3/uL (0.0-0.7) Basophils # (Auto) 0.1x10^3/uL (0.0-0.2) Sodium Level 140mmol/L (136-145) Potassium Level 4.0mmol/L (3.5-5.1) Chloride Level 104mmol/L (98-107) Carbon Dioxide Level 27mmol/L (21-32) Anion Gap 9 (6-14) Blood Urea Nitrogen 27mg/dL (8-26) Creatinine 2.0mg/dL (0.7-1.3) Estimated GFR (Cockcroft-Gault) 33.1 Glucose Level 232mg/dL (70-99) Calcium Level 8.4mg/dL (8.5-10.1) Phosphorus Level 2.4mg/dL (2.6-4.7) Albumin 2.6g/dL (3.4-5.0) Test 10/26/16 04:56 10/26/16 12:10 10/26/16 16:33 10/26/16 23:39 Magnesium Level 2.0mg/dL (1.8-2.4) Glucose (Fingerstick) 209mg/dL (70-99) 78mg/dL (70-99) 37mg/dL (70-99) Test 10/26/16 23:50 10/26/16 23:58 10/27/16 04:38 10/27/16 08:10 Glucose (Fingerstick) 135mg/dL (70-99) 127mg/dL (70-99) Sodium Level 143mmol/L (136-145) 142mmol/L (136-145) Potassium Level 3.2mmol/L (3.5-5.1) 3.7mmol/L (3.5-5.1) Chloride Level 106mmol/L (98-107) 105mmol/L (98-107) Carbon Dioxide Level 31mmol/L (21-32) 31mmol/L (21-32) Anion Gap 6 (6-14) 6 (6-14) Blood Urea Nitrogen 21mg/dL (8-26) 23mg/dL (8-26) Creatinine 1.7mg/dL (0.7-1.3) 1.8mg/dL (0.7-1.3) Estimated GFR (Cockcroft-Gault) 39.9 37.4 Glucose Level 140mg/dL (70-99) 102mg/dL (70-99) Calcium Level 8.5mg/dL (8.5-10.1) 8.8mg/dL (8.5-10.1) Magnesium Level 1.8mg/dL (1.8-2.4) Reticulocyte Count (auto) 0.4% (0.5-2.5) Phosphorus Level 3.0mg/dL (2.6-4.7) Iron Level 25ug/dL (65-175) Total Iron Binding Capacity 98ug/dL (250-450) Iron Saturation 26% (15-34) Ferritin 470ng/mL (26-388) Albumin 2.3g/dL (3.4-5.0) Vitamin B12 Level 1199pg/mL (247-911) Serum Folate 4.39ng/ml (3.2-20.0) Test 10/27/16 11:37 Glucose (Fingerstick) 184mg/dL (70-99) Laboratory Tests Test 10/26/16 16:33 10/26/16 23:39 10/26/16 23:50 10/26/16 23:58 Glucose (Fingerstick) 78mg/dL (70-99) 37mg/dL (70-99) 135mg/dL (70-99) Sodium Level 143mmol/L (136-145) Potassium Level 3.2mmol/L (3.5-5.1) Chloride Level 106mmol/L (98-107) Carbon Dioxide Level 31mmol/L (21-32) Anion Gap 6 (6-14) Blood Urea Nitrogen 21mg/dL (8-26) Creatinine 1.7mg/dL (0.7-1.3) Estimated GFR (Cockcroft-Gault) 39.9 Glucose Level 140mg/dL (70-99) Calcium Level 8.5mg/dL (8.5-10.1) Magnesium Level 1.8mg/dL (1.8-2.4) Test 10/27/16 04:38 10/27/16 08:10 10/27/16 11:37 Reticulocyte Count (auto) 0.4% (0.5-2.5) Sodium Level 142mmol/L (136-145) Potassium Level 3.7mmol/L (3.5-5.1) Chloride Level 105mmol/L (98-107) Carbon Dioxide Level 31mmol/L (21-32) Anion Gap 6 (6-14) Blood Urea Nitrogen 23mg/dL (8-26) Creatinine 1.8mg/dL (0.7-1.3) Estimated GFR (Cockcroft-Gault) 37.4 Glucose Level 102mg/dL (70-99) Calcium Level 8.8mg/dL (8.5-10.1) Phosphorus Level 3.0mg/dL (2.6-4.7) Iron Level 25ug/dL (65-175) Total Iron Binding Capacity 98ug/dL (250-450) Iron Saturation 26% (15-34) Ferritin 470ng/mL (26-388) Albumin 2.3g/dL (3.4-5.0) Vitamin B12 Level 1199pg/mL (247-911) Serum Folate 4.39ng/ml (3.2-20.0) Glucose (Fingerstick) 127mg/dL (70-99) 184mg/dL (70-99) Microbiology 10/25/16 Blood Culture - Preliminary, Resulted NO GROWTH AFTER 1 DAY 10/21/16 Urine Culture - Final, Complete 10/21/16 Urine Culture Result 1 (HERBERT) - Final, Complete 10/22/16 Gram Stain - Final, Complete Iron studies c/w the "anemia of chronic disease". Medications Current Medications Diltiazem HCl 20 mg 20 mg 1X ONCE IVP Last administered on 10/20/16 13:35; Start 10/20/16 at 13:30; Stop 10/20/16 at 13:31; Status DC Diltiazem HCl 125 mg/Dextrose 125 ml @ 10 mls/hr 1X ONCE IV Last administered on 10/20/16 13:49; Start 10/20/16 at 13:30; Stop 10/20/16 at 19:37; Status DC Sodium Chloride (Iv Sodium Chloride 0.9% 1000ml Bag) 1,000 ml @ 100 mls/hr Q10H IV Last administered on 10/20/16 13:45; Start 10/20/16 at 13:30; Stop at 23:29; Status DC Diltiazem HCl (Cardizem) 20 mg 1X ONCE IVP Last administered on 10/20/16 14:16 ; Start 10/20/16 at 14:00; Stop 10/20/16 at 14:01; Status DC Vancomycin HCl (Vanco Per Pharmacy) 1 each PRN DAILY PRN MC SEE COMMENTS Last administered on 10/20/16 16:49; Start 10/20/16 at 14:45; Stop 10/21/16 at 07:42; Status DC Piperacillin Sod/ Tazobactam Sod 1 each 1 each PRN DAILY PRN MC SEE COMMENTS; Start 10/20/16 at 14:45; Stop 10/21/16 at 07:49; Status DC Vancomycin HCl 2 gm/Sodium Chloride 500 ml @ 250 mls/hr 1X ONCE IV Last administered on 10/20/16 15:45; Start 10/20/16 at 15:00; Stop 10/20/16 at 16:59; Status DC Piperacillin Sod/ Tazobactam Sod/ Sodium Chloride (Zosyn/Iv Sodium Chloride 0.9 % 50ml) 50 ml @ 100 mls/hr 1X ONCE IV Last administered on 10/20/16 15:04; Start 10/20/16 at 15:00; Stop 10/20/16 at 15:29; Status DC Ondansetron HCl (Zofran) 4 mg PRN Q8HRS PRN IV NAUSEA/VOMITING; Start 10/20/16 at 15:00; Stop 10/20/16 at 15:16; Status DC Fentanyl Citrate 50 mcg 50 mcg PRN Q2HR PRN IV PAIN; Start 10/20/16 at 15:00; Stop 10/21/16 at 14:59; Status DC Sodium Chloride (Iv Sodium Chloride 0.9% 1000ml Bag) 1,000 ml @ 100 mls/hr Q10H IV Last administered on 10/21/16 11:30; Start 10/20/16 at 15:30; Stop at 15:29; Status DC Acetaminophen (Tylenol) 650 mg PRN Q4HRS PRN PO FEVER; Start 10/20/16 at 15:00; Stop 10/21/16 at 14:59; Status DC Ondansetron HCl (Zofran) 4 mg PRN Q6HRS PRN IV NAUSEA/VOMITING; Start 10/20/16 at 15:12 Insulin Aspart (Novolog) 0-9 UNITS TIDWMEALS SQ Last administered on 10/27/16 11:39; Start 10/20/16 at 17:00 Dextrose 12.5 gm PRN Q15MIN PRN IV SEE COMMENTS Last administered on 10/26/16 23:42; Start 10/20/16 at 15:15 Docusate Sodium (Colace) 100 mg BID PO Last administered on 10/26/16 21:17; Start 10/20/16 at 21:00 Glimepiride (Amaryl) 2 mg BID PO ; Start 10/20/16 at 21:00; Status UNV Acetaminophen/ Hydrocodone Bitart (Lortab 7.5/325) 1 tab PRN Q3HRS PRN PO PAIN Last administered on 10/26/16 15:27; Start 10/20/16 at 15:15 Glimepiride (Amaryl) 4 mg BIDWMEALS PO Last administered on 10/20/16 17:32; Start 10/20/16 at 17:00; Stop 10/21/16 at 14:52; Status DC Insulin Detemir (Levemir) 30 units QHS SQ Last administered on 10/20/16 21:03; Start 10/20/16 at 21:00; Stop 10/21/16 at 14:52; Status DC Ondansetron HCl 4 mg 4 mg Q8HRS PO Last administered on 10/21/16 06:17; Start 10/20/16 at 22:00; Stop 10/21/16 at 17:24; Status DC Sodium Chloride 500 ml @ 500 mls/hr 1X ONCE IV ; Start 10/20/16 at 15:30; Stop 10/20/16 at 16:29; Status DC Piperacillin Sod/ Tazobactam Sod 2.25 gm/Sodium Chloride 50 ml @ 100 mls/hr Q6HRS IV Last administered on 10/27/16 06:03; Start 10/21/16 at 00:00; Stop at 07:43; Status DC Vancomycin HCl/ Sodium Chloride (Iv Sodium Chloride 0.9% 250ml) 250 ml @ 167 mls/hr Q24H IV ; Start 10/21/16 at 16:00; Stop 10/21/16 at 16:00; Status DC Vancomycin HCl 1 each 1 each 1X ONCE MC ; Start 10/22/16 at 15:30; Stop 10/22/16 at 15:31; Status Cancel Dopamine HCl/ Dextrose 250 ml @ 13.183 mls/ hr CONT PRN IV SEE I/O RECORD Last administered on 10/20/16 20:38; Start 10/20/16 at 19:30 Digoxin (Lanoxin) 250 mcg 1X ONCE IV Last administered on 10/20/16 21:02; Start 10/20/16 at 20:45; Stop 10/20/16 at 20:46; Status DC Digoxin (Lanoxin) 250 mcg 1X ONCE IV Last administered on 10/21/16 01:48; Start 10/21/16 at 02:00; Stop 10/21/16 at 02:01; Status DC Digoxin 250 mcg 250 mcg 1X ONCE IV Last administered on 10/21/16 04:12; Start 10/21/16 at 04:15; Stop 10/21/16 at 04:16; Status DC Diltiazem HCl 125 mg/Dextrose 125 ml @ 0 mls/hr CONT PRN IV SEE I/O RECORD Last administered on 10/21/16 23:03; Start 10/21/16 at 04:15; Stop 10/22/16 at 09: 44; Status DC Linezolid 300 ml @ 300 mls/hr Q12HR IV Last administered on 10/22/16 20:18; Start 10/21/16 at 09:00; Stop 10/23/16 at 07:26; Status DC Magnesium Sulfate/ Dextrose 50 ml @ 25 mls/hr PRN DAILY PRN IV for Mag < 1.7 on am labs Last administered on 10/22/16 15:15; Start 10/21/16 at 09:45 Albumin Human (Plasmanate) 500 ml @ 125 mls/hr 1X ONCE IV Last administered on 10/21/16 10:25; Start 10/21/16 at 09:45; Stop 10/21/16 at 13:44; Status DC Ondansetron HCl (Zofran) 4 mg PRN Q6HRS PRN IV Nausea; Start 10/21/16 at 10:00; Stop 10/22/16 at 09:59; Status DC Fentanyl Citrate (Fentanyl 2ml Vial) 25 mcg PRN Q5MIN PRN IV MILD PAIN; Start 10/21/16 at 10:00; Stop 10/22/16 at 09:59; Status DC Fentanyl Citrate (Fentanyl 2ml Vial) 50 mcg PRN Q5MIN PRN IV MODERATE PAIN; Start 10/21/16 at 10:00; Stop 10/22/16 at 09:59; Status DC Morphine Sulfate 1 mg 1 mg PRN Q10MIN PRN IV SEVERE PAIN; Start 10/21/16 at 10: 00; Stop 10/22/16 at 09:59; Status DC Lactated Ringer's (Iv Lactated Ringers) 1,000 ml @ 30 mls/hr Q24H IV ; Start at 09:50; Stop 10/21/16 at 21:49; Status DC Lidocaine HCl 2 ml 1X PRN PRN ID IV START; Start 10/21/16 at 10:00; Stop at 09:59; Status DC Hydromorphone HCl (Dilaudid) 0.5 mg PRN Q10MIN PRN IV SEV PAIN,Second choice; Start 10/21/16 at 10:00; Stop 10/22/16 at 09:59; Status DC Prochlorperazine Edisylate 5 mg 5 mg PACU PRN PRN IV NAUSEA; Start 10/21/16 at 10:00; Stop 10/22/16 at 09:59; Status DC Sodium Chloride (Iv Sodium Chloride 0.9% 500ml Bag) 500 ml @ 0 mls/hr PRN QID PRN IV UO< 30cc/hr over previous 6hrs; Start 10/21/16 at 10:15; Stop 10/21/16 at 17:27; Status DC Ondansetron HCl (Zofran) 4 mg PRN Q6HRS PRN IV Nausea; Start 10/21/16 at 11:30; Stop 10/22/16 at 11:29; Status DC Morphine Sulfate 1 mg 1 mg PRN Q10MIN PRN IV SEVERE PAIN; Start 10/21/16 at 11: 30; Stop 10/22/16 at 11:29; Status DC Lactated Ringer's (Iv Lactated Ringers) 1,000 ml @ 0 mls/hr Q0M IV ; Start 10/21 at 11:19; Stop 10/21/16 at 23:18; Status DC Lidocaine HCl 2 ml 1X PRN PRN ID IV START; Start 10/21/16 at 11:30; Stop at 11:29; Status DC Hydromorphone HCl (Dilaudid) 0.5 mg PRN Q10MIN PRN IV SEV PAIN,Second choice; Start 10/21/16 at 11:30; Stop 10/22/16 at 11:29; Status DC Prochlorperazine Edisylate (Compazine) 5 mg PACU PRN PRN IV NAUSEA; Start at 11:30; Stop 10/22/16 at 11:29; Status DC Atorvastatin Calcium (Lipitor) 20 mg QHS PO Last administered on 10/26/16 21: 17; Start 10/21/16 at 21:00 Aspirin (Ecotrin) 81 mg DAILYWBKFT PO Last administered on 10/27/16 08:08; Start 10/21/16 at 12:00 Ondansetron HCl (Zofran) 4 mg PRN Q6HRS PRN IV Nausea; Start 10/22/16 at 07:00; Stop 10/23/16 at 06:59; Status DC Morphine Sulfate 1 mg 1 mg PRN Q10MIN PRN IV SEVERE PAIN; Start 10/22/16 at 07: 00; Stop 10/23/16 at 06:59; Status DC Lactated Ringer's (Iv Lactated Ringers) 1,000 ml @ 30 mls/hr Q24H IV ; Start at 07:00; Stop 10/22/16 at 15:07; Status DC Lidocaine HCl 2 ml 1X PRN PRN ID IV START; Start 10/22/16 at 07:00; Stop at 06:59; Status DC Hydromorphone HCl (Dilaudid) 0.5 mg PRN Q10MIN PRN IV SEVERE PAIN, Second choice; Start 10/22/16 at 07:00; Stop 10/23/16 at 06:59; Status DC Prochlorperazine Edisylate (Compazine) 5 mg PACU PRN PRN IV NAUSEA; Start at 07:00; Stop 10/23/16 at 06:59; Status DC Aspirin (Ecotrin) 81 mg DAILYWBKFT PO ; Start 10/22/16 at 08:00; Status UNV Insulin Detemir (Levemir) 20 units QHS SQ ; Start 10/21/16 at 21:00; Stop at 08:29; Status DC Ondansetron HCl 4 mg 4 mg PRN Q8HRS PRN PO NAUSEA; Start 10/22/16 at 14:00 Sodium Chloride 1,000 ml @ 175 mls/hr Q5H43M IV Last administered on 05:30; Start 10/21/16 at 18:00; Stop 10/23/16 at 07:20; Status DC Dextrose 1,000 ml @ 75 mls/hr [id number] IV Last administered on 10/22/16 04:54; Start 10/22/16 at 04:45; Stop 10/22/16 at 15:05; Status DC Bupivacaine HCl (Sensorcaine Mpf 0.5%) 30 ml STK-MED ONCE .ROUTE ; Start at 06:45; Stop 10/22/16 at 06:46; Status DC Lidocaine HCl 20 ml 20 ml STK-MED ONCE .ROUTE ; Start 10/22/16 at 06:46; Stop 10/22/16 at 06:47; Status DC Propofol (Diprivan) 20 ml @ As Directed STK-MED ONCE IV ; Start 10/22/16 at 08:02 ; Stop 10/22/16 at 08:03; Status DC Lidocaine HCl 100 mg STK-MED ONCE .ROUTE ; Start 10/22/16 at 08:02; Stop 10/22/16 at 08:03; Status DC Ondansetron HCl (Zofran) 4 mg STK-MED ONCE .ROUTE ; Start 10/22/16 at 08:31; Stop 10/22/16 at 08:32; Status DC Phenylephrine HCl 1 mg STK-MED ONCE IV ; Start 10/22/16 at 08:31; Stop 10/22/16 at 08:32; Status DC Dexamethasone Sodium Phosphate (Decadron) 20 mg STK-MED ONCE .ROUTE ; Start 10/22 at 08:48; Stop 10/22/16 at 08:49; Status DC Sevoflurane (Ultane) 30 ml STK-MED ONCE IH ; Start 10/22/16 at 08:48; Stop at 08:49; Status DC Diltiazem HCl (Cardizem) 30 mg Q6HRS PO Last administered on 10/27/16 11:27; Start 10/22/16 at 10:00 Metoprolol Tartrate 5 mg 5 mg PRN Q6HRS PRN IVP ELEVATED BP, SEE COMMENTS; Start 10/22/16 at 09:45 Albumin Human (Plasmanate) 500 ml @ 125 mls/hr 1X ONCE IV Last administered on 10/22/16 11:20; Start 10/22/16 at 09:45; Stop 10/22/16 at 13:44; Status DC Info (Anti-Coagulation Monitoring By Pharmacy) 1 each PRN DAILY PRN MC SEE COMMENTS; Start 10/22/16 at 15:15; Status UNV Heparin Sodium (Porcine) 5,000 unit Q12HR SQ Last administered on 10/27/16 08: 11; Start 10/22/16 at 21:00 Loperamide HCl (Imodium) 2 mg PRN Q15MIN PRN PO DIARRHEA Last administered on 09:27; Start 10/22/16 at 20:00 Insulin Human Regular (Novolin R Vial) 10 unit 1X ONCE IV Last administered on 10/22/16 23:52; Start 10/22/16 at 01:00; Stop 10/22/16 at 23:46; Status DC Insulin Detemir (Levemir) 10 units 1X ONCE SQ Last administered on 10/22/16 23 :53; Start 10/22/16 at 23:45; Stop 10/22/16 at 23:46; Status DC Insulin Human Regular 10 unit 10 unit 1X ONCE IV Last administered on 00:09; Start 10/23/16 at 00:00; Stop 10/23/16 at 00:01; Status DC Sodium Chloride 38.75 meq/Sodium Bicarbonate 75 meq/Sterile Water 1,084.6875 ml @ 150 mls/hr CONT PRN IV SEE I/O RECORD Last administered on 10/24/16 07:12; Start 10/23/16 at 07:30 Albumin Human (Albuminar) 100 ml @ 100 mls/hr TID IV Last administered on 10/24 21:23; Start 10/23/16 at 09:00; Stop 10/24/16 at 21:59; Status DC Heparin Sodium (Porcine) 10,000 unit STK-MED ONCE .ROUTE ; Start 10/23/16 at 07: 55; Stop 10/23/16 at 07:56; Status DC Lidocaine/Sodium Bicarbonate 20 ml 20 ml STK-MED ONCE IJ ; Start 10/23/16 at 07: 55; Stop 10/23/16 at 07:56; Status DC Heparin Sodium/ Sodium Chloride 500 ml @ As Directed STK-MED ONCE .ROUTE ; Start 10/23/16 at 07:55; Stop 10/23/16 at 07:56; Status DC Insulin Detemir (Levemir) 20 units [id number] SQ ; Start 10/23/16 at 08:00; Stop at 08:01; Status DC Insulin Aspart (Novolog) 10 units TIDAC SQ Last administered on 10/23/16 17:46 ; Start 10/23/16 at 11:30; Stop 10/24/16 at 11:12; Status DC Insulin Detemir (Levemir) 30 units DAILY08 SQ Last administered on 10/23/16 09 :55; Start 10/23/16 at 08:30; Stop 10/24/16 at 11:12; Status DC Lidocaine/Sodium Bicarbonate (Buffered Lidocaine 1%) 3 ml 1X ONCE IJ Last administered on 10/23/16 08:48; Start 10/23/16 at 08:30; Stop 10/23/16 at 08:31 ; Status DC Heparin Sodium/ Sodium Chloride 60 unit 1X ONCE IV Last administered on 08:48; Start 10/23/16 at 08:30; Stop 10/23/16 at 08:31; Status DC Heparin Sodium (Porcine) 2,500 unit 1X ONCE INT CAT Last administered on 08:48; Start 10/23/16 at 08:30; Stop 10/23/16 at 08:31; Status DC Albuterol/ Ipratropium (Duoneb) 3 ml RTQID NEB Last administered on 10/27/16 12:11; Start 10/24/16 at 12:00 Albuterol/ Ipratropium (Duoneb) 3 ml 1X ONCE NEB Last administered on 09:11; Start 10/24/16 at 09:00; Stop 10/24/16 at 09:01; Status DC Budesonide (Pulmicort) 0.5 mg RTBID NEB Last administered on 10/27/16 12:11; Start 10/24/16 at 10:00 Insulin Aspart (Novolog) 7 units TIDAC SQ Last administered on 10/27/16 11:38 ; Start 10/24/16 at 11:30 Insulin Detemir (Levemir) 20 units [id number] SQ Last administered on 10/26/16 08 :43; Start 10/25/16 at 08:00 Potassium Chloride 20 meq 20 meq 1X ONCE PO Last administered on 10/24/16 18: 28; Start 10/24/16 at 12:00; Stop 10/24/16 at 12:01; Status DC Sodium Chloride 1,000 ml @ 1,000 mls/hr Q1H PRN IV hypotension; Start 10/24/16 at 13:00; Stop 10/24/16 at 18:59; Status DC Albumin Human (Albuminar) 200 ml @ 200 mls/hr 1X PRN PRN IV Hypotension; Start 10/24/16 at 14:00; Stop 10/24/16 at 19:59; Status DC Acetaminophen (Tylenol) 500 mg 1X PRN PRN PO MILD PAIN / TEMP; Start 10/24/16 at 14:00; Stop 10/25/16 at 13:59; Status DC Diphenhydramine HCl (Benadryl) 25 mg 1X PRN PRN IV ITCHING; Start 10/24/16 at 14:00; Stop 10/25/16 at 13:59; Status DC Diphenhydramine HCl (Benadryl) 25 mg 1X PRN PRN IV ITCHING; Start 10/24/16 at 14:00; Stop 10/25/16 at 13:59; Status DC Info (PHARMACY MONITORING -- do not chart) 1 each PRN DAILY PRN MC SEE COMMENTS ; Start 10/24/16 at 14:00; Stop 10/25/16 at 13:16; Status DC Potassium Chloride 20 meq 20 meq 1X ONCE PO ; Start 10/24/16 at 18:30; Stop 07/02 at 18:31; Status DC Amino Acids/ Electrolytes (Clinimix E 2.75%-5% Solution) 1,000 ml @ 55 mls/hr [id number] IV Last administered on 10/27/16 00:52; Start 10/25/16 at 12:00 Hydralazine HCl 10 mg 10 mg PRN Q4HRS PRN IVP ELEVATED BP, SEE COMMENTS Last administered on 10/27/16 06:05; Start 10/25/16 at 12:45 Sodium Chloride 1,000 ml @ 1,000 mls/hr Q1H PRN IV hypotension; Start 10/25/16 at 13:07; Stop 10/25/16 at 19:06; Status DC Albumin Human (Albuminar) 200 ml @ 200 mls/hr 1X PRN PRN IV Hypotension Last administered on 10/25/16 14:30; Start 10/25/16 at 13:15; Stop 10/25/16 at 19:14 ; Status DC Acetaminophen (Tylenol) 500 mg 1X PRN PRN PO MILD PAIN / TEMP; Start 10/25/16 at 13:15; Stop 10/26/16 at 13:14; Status DC Diphenhydramine HCl (Benadryl) 25 mg 1X PRN PRN IV ITCHING; Start 10/25/16 at 13:15; Stop 10/26/16 at 13:14; Status DC Diphenhydramine HCl (Benadryl) 25 mg 1X PRN PRN IV ITCHING; Start 10/25/16 at 13:15; Stop 10/26/16 at 13:14; Status DC Info (PHARMACY MONITORING -- do not chart) 1 each PRN DAILY PRN MC SEE COMMENTS ; Start 10/25/16 at 13:15 Famotidine (Pepcid) 20 mg QHS IVP Last administered on 10/26/16 21:17; Start 10/26/16 at 21:00; Stop 10/27/16 at 11:20; Status DC Furosemide 40 mg 40 mg [id number] IVP Last administered on 10/27/16 08:08; Start at 12:00 Sodium Chloride 1,000 ml @ 1,000 mls/hr Q1H PRN IV hypotension; Start 10/26/16 at 13:55; Stop 10/26/16 at 19:54; Status DC Sodium Chloride (Iv Sodium Chloride 0.9% 1000ml Bag) 1,000 ml @ 400 mls/hr Q2H30M PRN IV PATENCY; Start 10/26/16 at 13:55; Stop 10/27/16 at 01:54; Status DC Info 1 each 1 each PRN DAILY PRN MC SEE COMMENTS; Start 10/26/16 at 14:00; Status UNV Meropenem/Sodium Chloride (Merrem/Iv Sodium Chloride 0.9% 50ml) 50 ml @ 100 mls /hr Q6HRS IV Last administered on 10/27/16 11:26; Start 10/27/16 at 12:00 Metoprolol Tartrate (Lopressor) 25 mg BID PO Last administered on 10/27/16 11: 26; Start 10/27/16 at 12:00 Famotidine (Pepcid) 20 mg QHS PO ; Start 10/27/16 at 21:00 Active Scripts Active Reported Zofran Odt (Ondansetron) 8 Mg Tab.rapdis 1 Tab PO Q8HRS Colace (Docusate Sodium) 100 Mg Capsule 1 Cap PO BID Hydrocodone-Apap 7.5-325 (Hydrocodone Bit/Acetaminophen) 1 Each Tablet 1 Tab PO Q3HRS PRN Glimepiride 4 Mg Tablet 1 Tab PO BID Glimepiride 2 Mg Tablet 1 Tab PO BID Levemir (Insulin Detemir) 100 Unit/1 Ml Vial 30 Unit SQ HS Vitals/I & O Vital Sign - Last 24 Hours 10/26/16 10/26/16 10/26/16 10/26/16 12:16 12:40 13:00 14:00 Pulse 88 97 86 Resp 22 17 B/P 166/74 161/60 138/41 Pulse Ox 99 100 100 O2 Delivery BiPAP/CPAP BiPAP/CPAP BiPAP/CPAP 10/26/16 10/26/16 10/26/16 10/26/16 15:00 15:27 16:00 16:00 Temp 97.0 97.0 Pulse 87 82 Resp 20 16 B/P 150/57 150/56 Pulse Ox 100 100 O2 Delivery BiPAP/CPAP BiPAP/CPAP Bi-pap BiPAP/CPAP 10/26/16 10/26/16 10/26/16 10/26/16 16:19 16:28 17:00 18:00 Pulse 87 80 Resp 23 22 B/P 147/59 148/66 Pulse Ox 99 100 99 O2 Delivery BiPAP/CPAP BiPAP/CPAP BiPAP/CPAP BiPAP/CPAP 10/26/16 10/26/16 10/26/16 10/26/16 18:12 19:00 19:37 19:59 Pulse 80 92 Resp 20 B/P 148/66 147/54 Pulse Ox 99 97 O2 Delivery Venturi Mask Venturi Mask Venturi Mask O2 Flow Rate 15.0 12.0 10/26/16 10/26/16 10/26/16 10/26/16 20:00 21:00 22:00 23:00 Temp 97.2 97.2 Pulse 84 94 84 86 Resp 17 17 B/P 145/62 154/55 157/62 164/64 Pulse Ox 98 99 97 99 O2 Delivery Venturi Mask Venturi Mask Venturi Mask Venturi Mask 10/27/16 10/27/16 10/27/16 10/27/16 00:00 00:01 00:01 01:00 Temp 95.9 95.9 Pulse 76 84 74 Resp 16 13 B/P 167/72 167/72 159/63 Pulse Ox 97 99 O2 Delivery Venturi Mask Venturi Mask Venturi Mask O2 Flow Rate 12.0 10/27/16 10/27/16 10/27/16 10/27/16 02:02 03:00 04:00 04:00 Temp 96.7 96.7 Pulse 76 78 80 Resp 17 B/P 160/59 159/67 160/72 Pulse Ox 100 100 100 O2 Delivery Venturi Mask Venturi Mask Venturi Mask Venturi Mask O2 Flow Rate 12.0 10/27/16 10/27/16 10/27/16 10/27/16 05:00 06:00 06:03 06:05 Pulse 82 78 Resp 16 14 B/P 165/63 173/69 173/69 173/69 Pulse Ox 100 99 O2 Delivery Venturi Mask Venturi Mask 10/27/16 10/27/16 10/27/16 10/27/16 07:00 08:00 08:00 08:00 Temp 97.6 97.6 Pulse 110 104 Resp 16 23 B/P 151/63 125/64 Pulse Ox 99 96 92 O2 Delivery Venturi Mask Nasal Cannula Nasal Cannula Nasal Cannula O2 Flow Rate 4.0 4.0 4.0 10/27/16 10/27/16 10/27/16 10/27/16 09:00 10:00 11:00 11:26 Pulse 114 144 126 123 Resp 16 18 15 B/P 132/62 152/68 132/66 132/66 Pulse Ox 95 95 96 O2 Delivery Nasal Cannula Nasal Cannula Nasal Cannula O2 Flow Rate 4.0 4.0 4.0 10/27/16 11:27 Pulse 126 B/P 132/66 Intake and Output 10/26/16 10/26/16 10/27/16 15:00 23:00 07:00 Intake Total 120 ml 240 ml 1738 ml Output Total 238 ml 404 ml 224 ml Balance -118 ml -164 ml 1514 ml Problem List Problems Medical Problems: (1) Acute renal failure Status: Acute (2) Atrial fibrillation with RVR Status: Acute (3) Lactic acidosis Status: Acute (4) Severe sepsis Status: Acute (5) Uncontrolled diabetes mellitus Status: Acute Assessment Loose stool today, has not continued. Plan of Care: Continue current Tx, Mgmt Plan of Care Note Observe re: any diarrhea. PO SCHOFIELD MD Oct 27, 2016 12:15
--- NOTE | 2016-10-27 12:35 | PDOC ---
MARCELO PEREIRA CAN REPAIRER 10/27/16 1235: CARDIO Progress Notes Date and Time Date of Service 10/27/2016 Time of Evaluation 1234 Subjective Subjective: No Chest Pain, No shortness of breath, No Dizziness, Other ( occasional palps) Vitals Vitals Vital Signs Date Time Temp Pulse Resp B/P Pulse Ox O2 Delivery O2 Flow Rate FiO2 10/27/16 12:12 96 Nasal Cannula 4.0 10/27/16 11:27 126 132/66 10/27/16 11:00 15 10/27/16 08:00 97.6 97.6 Weight Weight [ ] Input and Output Intake and Output Intake and Output 10/27/16 07:00 Intake Total 2098 ml Output Total 866 ml Balance 1232 ml Intake Oral 1102 ml IV Total 996 ml Output Urine Total 866 ml # Bowel Movements 1 Laboratory Labs Laboratory Tests Test 10/26/16 16:33 10/26/16 23:39 10/26/16 23:50 10/26/16 23:58 Glucose (Fingerstick) 78mg/dL (70-99) 37mg/dL (70-99) 135mg/dL (70-99) Sodium Level 143mmol/L (136-145) Potassium Level 3.2mmol/L (3.5-5.1) Chloride Level 106mmol/L (98-107) Carbon Dioxide Level 31mmol/L (21-32) Anion Gap 6 (6-14) Blood Urea Nitrogen 21mg/dL (8-26) Creatinine 1.7mg/dL (0.7-1.3) Estimated GFR (Cockcroft-Gault) 39.9 Glucose Level 140mg/dL (70-99) Calcium Level 8.5mg/dL (8.5-10.1) Magnesium Level 1.8mg/dL (1.8-2.4) Test 10/27/16 04:38 10/27/16 08:10 10/27/16 11:37 Reticulocyte Count (auto) 0.4% (0.5-2.5) Sodium Level 142mmol/L (136-145) Potassium Level 3.7mmol/L (3.5-5.1) Chloride Level 105mmol/L (98-107) Carbon Dioxide Level 31mmol/L (21-32) Anion Gap 6 (6-14) Blood Urea Nitrogen 23mg/dL (8-26) Creatinine 1.8mg/dL (0.7-1.3) Estimated GFR (Cockcroft-Gault) 37.4 Glucose Level 102mg/dL (70-99) Calcium Level 8.8mg/dL (8.5-10.1) Phosphorus Level 3.0mg/dL (2.6-4.7) Iron Level 25ug/dL (65-175) Total Iron Binding Capacity 98ug/dL (250-450) Iron Saturation 26% (15-34) Ferritin 470ng/mL (26-388) Albumin 2.3g/dL (3.4-5.0) Vitamin B12 Level 1199pg/mL (247-911) Serum Folate 4.39ng/ml (3.2-20.0) Glucose (Fingerstick) 127mg/dL (70-99) 184mg/dL (70-99) Microbiology Micro Microbiology 10/25/16 Blood Culture - Preliminary, Resulted NO GROWTH AFTER 1 DAY 10/21/16 Urine Culture - Final, Complete 10/21/16 Urine Culture Result 1 (HERBERT) - Final, Complete 10/22/16 Gram Stain - Final, Complete Physical Exam HEENT: Neck Supple W Full Motion Chest: Symmetric LUNGS: Other (basilar crackles; upper rhonchi) Heart: S1S2, RRR, murmurs (2/6 LSB), other (tele: atrial fib with RVR ~ 150) Abdomen: Soft N/T Extremities: Other (wound vac left foot) Neurology: alert, oriented, follow commands Assessment Assessment 1. atrial fib RVR metoprolol increased convert to once daily dose of Cardizem CD this evening [id number] = 3(DM, sex, age); recommend OAC as soon as agreeable with Ortho ; currently remains on low dose ASA MPI tomorrow 2. Sepsis/bacteremia/osteo wound vac left foot per ortho 3. RHETT now on HD; next run unknown 4. DM, type II with peripheral neuropathy 5. Known RLE PAD asymptomatic ERENDIRA SARMIENTO MD 10/27/16 1453: CARDIO Progress Notes Plan Plan Patient seen and examined. Agree with above nurse practitioner. Overnight and this morning patient has had irregular heart rhythms likely related to albuterol nebulizers and underlying cardiovascular issues. On examination he has an irregular heartbeat. No significant murmurs. No obvious heart failure noted. Medication titration as noted above. Would recommend anticoagulation if okay per surgical services. Otherwise could initiate on an outpatient basis. Will follow along MARCELO PEREIRA APRN Oct 27, 2016 12:35 ERENDIRA SARMIENTO MD Oct 27, 2016 14:53
[2016-10-27] MEDS: DILTIAZEM HCL 180 MG CAP.ER.24H PO SCH (16:54)
[2016-10-27] MEDS: ATORVASTATIN CALCIUM 20 MG TABLET PO SCH (20:43)
[2016-10-27] MEDS: FAMOTIDINE 20 MG TABLET. PO SCH (20:43)
[2016-10-28 03:00] VITALS: BP 151/75
[2016-10-28] MEDS: MEROPENEM 500 MG in IV NORMAL SALINE 50ML 50 ML IV SCH ×2 (06:00→21:23)
[2016-10-28 06:13] LABS: ALBUMIN 2.1 g/dL (3.4-5.0); CALCIUM 8.4 mg/dL (8.5-10.1); CREATININE 3.1 mg/dL (0.7-1.3); PHOSPHORUS 3.5 mg/dL (2.6-4.7)
[2016-10-28] MEDS: INSULIN ASPART 300 UNITS/3 ML INSULN.PEN SQ SCH ×6 (07:30→17:00)
[2016-10-28] MEDS ORDERED: REGADENOSON 0.4 MG/5 ML DISP.SYRIN. IV ONE (07:45)
[2016-10-28] MEDS: ASPIRIN ENTERIC COATED 81 MG TABLET.DR. PO SCH (08:00)
[2016-10-28] MEDS: IPRATRPIUM/ALBUTEROL 0.5/2.5MG 3 ML NEBU. NEB SCH ×4 (08:00→19:40)
--- NOTE | 2016-10-28 08:12 | RAD ---
Portable chest, 10/28/2016: History: Respiratory failure Comparison is made to a study from 10/26/2016. A right jugular dialysis type catheter remains in place extending into the right atrium. The heart size is unchanged. There are patchy bilateral pulmonary infiltrates. These have improved slightly, particularly in the right base. The underlying pulmonary vascularity is poorly defined. No significant pleural fluid or pneumothorax is seen. No new abnormality is detected. IMPRESSION: Ongoing moderate bilateral pulmonary infiltrates with slight further interval improvement.
[2016-10-28 08:54] VITALS: BP 156/69
[2016-10-28] MEDS: METOPROLOL TART IMMED RELEASE 25 MG TABLET PO SCH ×2 (09:00→21:24)
[2016-10-28] MEDS: FUROSEMIDE 40 MG/4 ML VIAL IVP SCH ×2 (09:00→17:11)
[2016-10-28] MEDS: DOCUSATE SODIUM 100 MG CAPSULE PO SCH ×2 (09:00→21:00)
[2016-10-28] MEDS ORDERED: IV NORMAL SALINE 1000ML BAG 1,000 ML IV PRN ×4 (09:34→12:47)
[2016-10-28] MEDS ORDERED: LABETALOL 20 MG/4 ML DISP.SYRIN. IVP PRN (09:45)
[2016-10-28] MEDS ORDERED: ACETAMINOPHEN 500 MG TABLET PO PRN (09:45)
[2016-10-28] MEDS ORDERED: DIPHENHYDRAMINE 50 MG/ML VIAL IV PRN ×4 (09:45→13:00)
[2016-10-28] MEDS ORDERED: ALBUMIN HUMAN 25% 200 ML IV PRN (09:45)
[2016-10-28] MEDS ORDERED: DIALYSIS PATIENT. MC PRN ×2 (09:45→13:00)
[2016-10-28] MEDS ORDERED: 0.9 % SODIUM CHLORIDE 10 ML DISP.SYRIN. IV PRN ×4 (09:45→13:00)
--- NOTE | 2016-10-28 10:26 | PDOC ---
G I PROGRESS NOTE Subjective Out for stress testing. Objective NO reports of any GI issues at present. Only the one stool yesterday charted. Physical Exam No PE> Review of Relevant I have reviewed the following items jovan (where applicable) has been applied. Labs Laboratory Tests Test 10/26/16 12:10 10/26/16 16:33 10/26/16 23:39 10/26/16 23:50 Glucose (Fingerstick) 209mg/dL (70-99) 78mg/dL (70-99) 37mg/dL (70-99) 135mg/dL (70-99) Test 10/26/16 23:58 10/27/16 04:38 10/27/16 08:10 10/27/16 11:37 Sodium Level 143mmol/L (136-145) 142mmol/L (136-145) Potassium Level 3.2mmol/L (3.5-5.1) 3.7mmol/L (3.5-5.1) Chloride Level 106mmol/L (98-107) 105mmol/L (98-107) Carbon Dioxide Level 31mmol/L (21-32) 31mmol/L (21-32) Anion Gap 6 (6-14) 6 (6-14) Blood Urea Nitrogen 21mg/dL (8-26) 23mg/dL (8-26) Creatinine 1.7mg/dL (0.7-1.3) 1.8mg/dL (0.7-1.3) Estimated GFR (Cockcroft-Gault) 39.9 37.4 Glucose Level 140mg/dL (70-99) 102mg/dL (70-99) Calcium Level 8.5mg/dL (8.5-10.1) 8.8mg/dL (8.5-10.1) Magnesium Level 1.8mg/dL (1.8-2.4) Reticulocyte Count (auto) 0.4% (0.5-2.5) Phosphorus Level 3.0mg/dL (2.6-4.7) Iron Level 25ug/dL (65-175) Total Iron Binding Capacity 98ug/dL (250-450) Iron Saturation 26% (15-34) Ferritin 470ng/mL (26-388) Albumin 2.3g/dL (3.4-5.0) Vitamin B12 Level 1199pg/mL (247-911) Serum Folate 4.39ng/ml (3.2-20.0) Glucose (Fingerstick) 127mg/dL (70-99) 184mg/dL (70-99) Test 10/27/16 16:48 10/28/16 05:09 Glucose (Fingerstick) 171mg/dL (70-99) Sodium Level 143mmol/L (136-145) Potassium Level 4.0mmol/L (3.5-5.1) Chloride Level 105mmol/L (98-107) Carbon Dioxide Level 29mmol/L (21-32) Anion Gap 9 (6-14) Blood Urea Nitrogen 40mg/dL (8-26) Creatinine 3.1mg/dL (0.7-1.3) Estimated GFR (Cockcroft-Gault) 20.0 Glucose Level 162mg/dL (70-99) Calcium Level 8.4mg/dL (8.5-10.1) Phosphorus Level 3.5mg/dL (2.6-4.7) Albumin 2.1g/dL (3.4-5.0) Laboratory Tests Test 10/27/16 11:37 10/27/16 16:48 10/28/16 05:09 Glucose (Fingerstick) 184mg/dL (70-99) 171mg/dL (70-99) Sodium Level 143mmol/L (136-145) Potassium Level 4.0mmol/L (3.5-5.1) Chloride Level 105mmol/L (98-107) Carbon Dioxide Level 29mmol/L (21-32) Anion Gap 9 (6-14) Blood Urea Nitrogen 40mg/dL (8-26) Creatinine 3.1mg/dL (0.7-1.3) Estimated GFR (Cockcroft-Gault) 20.0 Glucose Level 162mg/dL (70-99) Calcium Level 8.4mg/dL (8.5-10.1) Phosphorus Level 3.5mg/dL (2.6-4.7) Albumin 2.1g/dL (3.4-5.0) Microbiology 10/25/16 Blood Culture - Preliminary, Resulted NO GROWTH AFTER 2 DAYS 10/21/16 Urine Culture - Final, Complete 10/21/16 Urine Culture Result 1 (HERBERT) - Final, Complete 10/22/16 Gram Stain - Final, Complete Medications Current Medications Diltiazem HCl 20 mg 20 mg 1X ONCE IVP Last administered on 10/20/16 13:35; Start 10/20/16 at 13:30; Stop 10/20/16 at 13:31; Status DC Diltiazem HCl 125 mg/Dextrose 125 ml @ 10 mls/hr 1X ONCE IV Last administered on 10/20/16 13:49; Start 10/20/16 at 13:30; Stop 10/20/16 at 19:37; Status DC Sodium Chloride (Iv Sodium Chloride 0.9% 1000ml Bag) 1,000 ml @ 100 mls/hr Q10H IV Last administered on 10/20/16 13:45; Start 10/20/16 at 13:30; Stop at 23:29; Status DC Diltiazem HCl (Cardizem) 20 mg 1X ONCE IVP Last administered on 10/20/16 14:16 ; Start 10/20/16 at 14:00; Stop 10/20/16 at 14:01; Status DC Vancomycin HCl (Vanco Per Pharmacy) 1 each PRN DAILY PRN MC SEE COMMENTS Last administered on 10/20/16 16:49; Start 10/20/16 at 14:45; Stop 10/21/16 at 07:42; Status DC Piperacillin Sod/ Tazobactam Sod 1 each 1 each PRN DAILY PRN MC SEE COMMENTS; Start 10/20/16 at 14:45; Stop 10/21/16 at 07:49; Status DC Vancomycin HCl 2 gm/Sodium Chloride 500 ml @ 250 mls/hr 1X ONCE IV Last administered on 10/20/16 15:45; Start 10/20/16 at 15:00; Stop 10/20/16 at 16:59; Status DC Piperacillin Sod/ Tazobactam Sod/ Sodium Chloride (Zosyn/Iv Sodium Chloride 0.9 % 50ml) 50 ml @ 100 mls/hr 1X ONCE IV Last administered on 10/20/16 15:04; Start 10/20/16 at 15:00; Stop 10/20/16 at 15:29; Status DC Ondansetron HCl (Zofran) 4 mg PRN Q8HRS PRN IV NAUSEA/VOMITING; Start 10/20/16 at 15:00; Stop 10/20/16 at 15:16; Status DC Fentanyl Citrate 50 mcg 50 mcg PRN Q2HR PRN IV PAIN; Start 10/20/16 at 15:00; Stop 10/21/16 at 14:59; Status DC Sodium Chloride (Iv Sodium Chloride 0.9% 1000ml Bag) 1,000 ml @ 100 mls/hr Q10H IV Last administered on 10/21/16 11:30; Start 10/20/16 at 15:30; Stop at 15:29; Status DC Acetaminophen (Tylenol) 650 mg PRN Q4HRS PRN PO FEVER; Start 10/20/16 at 15:00; Stop 10/21/16 at 14:59; Status DC Ondansetron HCl (Zofran) 4 mg PRN Q6HRS PRN IV NAUSEA/VOMITING; Start 10/20/16 at 15:12 Insulin Aspart (Novolog) 0-9 UNITS TIDWMEALS SQ Last administered on 10/27/16 16:51; Start 10/20/16 at 17:00 Dextrose 12.5 gm PRN Q15MIN PRN IV SEE COMMENTS Last administered on 10/26/16 23:42; Start 10/20/16 at 15:15 Docusate Sodium (Colace) 100 mg BID PO Last administered on 10/26/16 21:17; Start 10/20/16 at 21:00 Glimepiride (Amaryl) 2 mg BID PO ; Start 10/20/16 at 21:00; Status UNV Acetaminophen/ Hydrocodone Bitart (Lortab 7.5/325) 1 tab PRN Q3HRS PRN PO PAIN Last administered on 10/26/16 15:27; Start 10/20/16 at 15:15 Glimepiride (Amaryl) 4 mg BIDWMEALS PO Last administered on 10/20/16 17:32; Start 10/20/16 at 17:00; Stop 10/21/16 at 14:52; Status DC Insulin Detemir (Levemir) 30 units QHS SQ Last administered on 10/20/16 21:03; Start 10/20/16 at 21:00; Stop 10/21/16 at 14:52; Status DC Ondansetron HCl 4 mg 4 mg Q8HRS PO Last administered on 10/21/16 06:17; Start 10/20/16 at 22:00; Stop 10/21/16 at 17:24; Status DC Sodium Chloride 500 ml @ 500 mls/hr 1X ONCE IV ; Start 10/20/16 at 15:30; Stop 10/20/16 at 16:29; Status DC Piperacillin Sod/ Tazobactam Sod 2.25 gm/Sodium Chloride 50 ml @ 100 mls/hr Q6HRS IV Last administered on 10/27/16 06:03; Start 10/21/16 at 00:00; Stop at 07:43; Status DC Vancomycin HCl/ Sodium Chloride (Iv Sodium Chloride 0.9% 250ml) 250 ml @ 167 mls/hr Q24H IV ; Start 10/21/16 at 16:00; Stop 10/21/16 at 16:00; Status DC Vancomycin HCl 1 each 1 each 1X ONCE MC ; Start 10/22/16 at 15:30; Stop 10/22/16 at 15:31; Status Cancel Dopamine HCl/ Dextrose 250 ml @ 13.183 mls/ hr CONT PRN IV SEE I/O RECORD Last administered on 10/20/16 20:38; Start 10/20/16 at 19:30 Digoxin (Lanoxin) 250 mcg 1X ONCE IV Last administered on 10/20/16 21:02; Start 10/20/16 at 20:45; Stop 10/20/16 at 20:46; Status DC Digoxin (Lanoxin) 250 mcg 1X ONCE IV Last administered on 10/21/16 01:48; Start 10/21/16 at 02:00; Stop 10/21/16 at 02:01; Status DC Digoxin 250 mcg 250 mcg 1X ONCE IV Last administered on 10/21/16 04:12; Start 10/21/16 at 04:15; Stop 10/21/16 at 04:16; Status DC Diltiazem HCl 125 mg/Dextrose 125 ml @ 0 mls/hr CONT PRN IV SEE I/O RECORD Last administered on 10/21/16 23:03; Start 10/21/16 at 04:15; Stop 10/22/16 at 09: 44; Status DC Linezolid 300 ml @ 300 mls/hr Q12HR IV Last administered on 10/22/16 20:18; Start 10/21/16 at 09:00; Stop 10/23/16 at 07:26; Status DC Magnesium Sulfate/ Dextrose 50 ml @ 25 mls/hr PRN DAILY PRN IV for Mag < 1.7 on am labs Last administered on 10/22/16 15:15; Start 10/21/16 at 09:45 Albumin Human (Plasmanate) 500 ml @ 125 mls/hr 1X ONCE IV Last administered on 10/21/16 10:25; Start 10/21/16 at 09:45; Stop 10/21/16 at 13:44; Status DC Ondansetron HCl (Zofran) 4 mg PRN Q6HRS PRN IV Nausea; Start 10/21/16 at 10:00; Stop 10/22/16 at 09:59; Status DC Fentanyl Citrate (Fentanyl 2ml Vial) 25 mcg PRN Q5MIN PRN IV MILD PAIN; Start 10/21/16 at 10:00; Stop 10/22/16 at 09:59; Status DC Fentanyl Citrate (Fentanyl 2ml Vial) 50 mcg PRN Q5MIN PRN IV MODERATE PAIN; Start 10/21/16 at 10:00; Stop 10/22/16 at 09:59; Status DC Morphine Sulfate 1 mg 1 mg PRN Q10MIN PRN IV SEVERE PAIN; Start 10/21/16 at 10: 00; Stop 10/22/16 at 09:59; Status DC Lactated Ringer's (Iv Lactated Ringers) 1,000 ml @ 30 mls/hr Q24H IV ; Start at 09:50; Stop 10/21/16 at 21:49; Status DC Lidocaine HCl 2 ml 1X PRN PRN ID IV START; Start 10/21/16 at 10:00; Stop at 09:59; Status DC Hydromorphone HCl (Dilaudid) 0.5 mg PRN Q10MIN PRN IV SEV PAIN,Second choice; Start 10/21/16 at 10:00; Stop 10/22/16 at 09:59; Status DC Prochlorperazine Edisylate 5 mg 5 mg PACU PRN PRN IV NAUSEA; Start 10/21/16 at 10:00; Stop 10/22/16 at 09:59; Status DC Sodium Chloride (Iv Sodium Chloride 0.9% 500ml Bag) 500 ml @ 0 mls/hr PRN QID PRN IV UO< 30cc/hr over previous 6hrs; Start 10/21/16 at 10:15; Stop 10/21/16 at 17:27; Status DC Ondansetron HCl (Zofran) 4 mg PRN Q6HRS PRN IV Nausea; Start 10/21/16 at 11:30; Stop 10/22/16 at 11:29; Status DC Morphine Sulfate 1 mg 1 mg PRN Q10MIN PRN IV SEVERE PAIN; Start 10/21/16 at 11: 30; Stop 10/22/16 at 11:29; Status DC Lactated Ringer's (Iv Lactated Ringers) 1,000 ml @ 0 mls/hr Q0M IV ; Start 10/21 at 11:19; Stop 10/21/16 at 23:18; Status DC Lidocaine HCl 2 ml 1X PRN PRN ID IV START; Start 10/21/16 at 11:30; Stop at 11:29; Status DC Hydromorphone HCl (Dilaudid) 0.5 mg PRN Q10MIN PRN IV SEV PAIN,Second choice; Start 10/21/16 at 11:30; Stop 10/22/16 at 11:29; Status DC Prochlorperazine Edisylate (Compazine) 5 mg PACU PRN PRN IV NAUSEA; Start at 11:30; Stop 10/22/16 at 11:29; Status DC Atorvastatin Calcium (Lipitor) 20 mg QHS PO Last administered on 10/27/16 20: 43; Start 10/21/16 at 21:00 Aspirin (Ecotrin) 81 mg DAILYWBKFT PO Last administered on 10/27/16 08:08; Start 10/21/16 at 12:00 Ondansetron HCl (Zofran) 4 mg PRN Q6HRS PRN IV Nausea; Start 10/22/16 at 07:00; Stop 10/23/16 at 06:59; Status DC Morphine Sulfate 1 mg 1 mg PRN Q10MIN PRN IV SEVERE PAIN; Start 10/22/16 at 07: 00; Stop 10/23/16 at 06:59; Status DC Lactated Ringer's (Iv Lactated Ringers) 1,000 ml @ 30 mls/hr Q24H IV ; Start at 07:00; Stop 10/22/16 at 15:07; Status DC Lidocaine HCl 2 ml 1X PRN PRN ID IV START; Start 10/22/16 at 07:00; Stop at 06:59; Status DC Hydromorphone HCl (Dilaudid) 0.5 mg PRN Q10MIN PRN IV SEVERE PAIN, Second choice; Start 10/22/16 at 07:00; Stop 10/23/16 at 06:59; Status DC Prochlorperazine Edisylate (Compazine) 5 mg PACU PRN PRN IV NAUSEA; Start at 07:00; Stop 10/23/16 at 06:59; Status DC Aspirin (Ecotrin) 81 mg DAILYWBKFT PO ; Start 10/22/16 at 08:00; Status UNV Insulin Detemir (Levemir) 20 units QHS SQ ; Start 10/21/16 at 21:00; Stop at 08:29; Status DC Ondansetron HCl 4 mg 4 mg PRN Q8HRS PRN PO NAUSEA; Start 10/22/16 at 14:00 Sodium Chloride 1,000 ml @ 175 mls/hr Q5H43M IV Last administered on 05:30; Start 10/21/16 at 18:00; Stop 10/23/16 at 07:20; Status DC Dextrose 1,000 ml @ 75 mls/hr [id number] IV Last administered on 10/22/16 04:54; Start 10/22/16 at 04:45; Stop 10/22/16 at 15:05; Status DC Bupivacaine HCl (Sensorcaine Mpf 0.5%) 30 ml STK-MED ONCE .ROUTE ; Start at 06:45; Stop 10/22/16 at 06:46; Status DC Lidocaine HCl 20 ml 20 ml STK-MED ONCE .ROUTE ; Start 10/22/16 at 06:46; Stop 10/22/16 at 06:47; Status DC Propofol (Diprivan) 20 ml @ As Directed STK-MED ONCE IV ; Start 10/22/16 at 08:02 ; Stop 10/22/16 at 08:03; Status DC Lidocaine HCl 100 mg STK-MED ONCE .ROUTE ; Start 10/22/16 at 08:02; Stop 10/22/16 at 08:03; Status DC Ondansetron HCl (Zofran) 4 mg STK-MED ONCE .ROUTE ; Start 10/22/16 at 08:31; Stop 10/22/16 at 08:32; Status DC Phenylephrine HCl 1 mg STK-MED ONCE IV ; Start 10/22/16 at 08:31; Stop 10/22/16 at 08:32; Status DC Dexamethasone Sodium Phosphate (Decadron) 20 mg STK-MED ONCE .ROUTE ; Start 10/22 at 08:48; Stop 10/22/16 at 08:49; Status DC Sevoflurane (Ultane) 30 ml STK-MED ONCE IH ; Start 10/22/16 at 08:48; Stop at 08:49; Status DC Diltiazem HCl (Cardizem) 30 mg Q6HRS PO Last administered on 10/27/16 11:27; Start 10/22/16 at 10:00; Stop 10/27/16 at 12:31; Status DC Metoprolol Tartrate 5 mg 5 mg PRN Q6HRS PRN IVP ELEVATED BP, SEE COMMENTS; Start 10/22/16 at 09:45 Albumin Human (Plasmanate) 500 ml @ 125 mls/hr 1X ONCE IV Last administered on 10/22/16 11:20; Start 10/22/16 at 09:45; Stop 10/22/16 at 13:44; Status DC Info (Anti-Coagulation Monitoring By Pharmacy) 1 each PRN DAILY PRN MC SEE COMMENTS; Start 10/22/16 at 15:15; Status UNV Heparin Sodium (Porcine) 5,000 unit Q12HR SQ Last administered on 10/27/16 20: 47; Start 10/22/16 at 21:00 Loperamide HCl (Imodium) 2 mg PRN Q15MIN PRN PO DIARRHEA Last administered on 09:27; Start 10/22/16 at 20:00 Insulin Human Regular (Novolin R Vial) 10 unit 1X ONCE IV Last administered on 10/22/16 23:52; Start 10/22/16 at 01:00; Stop 10/22/16 at 23:46; Status DC Insulin Detemir (Levemir) 10 units 1X ONCE SQ Last administered on 10/22/16 23 :53; Start 10/22/16 at 23:45; Stop 10/22/16 at 23:46; Status DC Insulin Human Regular 10 unit 10 unit 1X ONCE IV Last administered on 00:09; Start 10/23/16 at 00:00; Stop 10/23/16 at 00:01; Status DC Sodium Chloride 38.75 meq/Sodium Bicarbonate 75 meq/Sterile Water 1,084.6875 ml @ 150 mls/hr CONT PRN IV SEE I/O RECORD Last administered on 10/24/16 07:12; Start 10/23/16 at 07:30 Albumin Human (Albuminar) 100 ml @ 100 mls/hr TID IV Last administered on 10/24 21:23; Start 10/23/16 at 09:00; Stop 10/24/16 at 21:59; Status DC Heparin Sodium (Porcine) 10,000 unit STK-MED ONCE .ROUTE ; Start 10/23/16 at 07: 55; Stop 10/23/16 at 07:56; Status DC Lidocaine/Sodium Bicarbonate 20 ml 20 ml STK-MED ONCE IJ ; Start 10/23/16 at 07: 55; Stop 10/23/16 at 07:56; Status DC Heparin Sodium/ Sodium Chloride 500 ml @ As Directed STK-MED ONCE .ROUTE ; Start 10/23/16 at 07:55; Stop 10/23/16 at 07:56; Status DC Insulin Detemir (Levemir) 20 units DAILY08 SQ ; Start 10/23/16 at 08:00; Stop at 08:01; Status DC Insulin Aspart (Novolog) 10 units TIDAC SQ Last administered on 10/23/16 17:46 ; Start 10/23/16 at 11:30; Stop 10/24/16 at 11:12; Status DC Insulin Detemir (Levemir) 30 units DAILY08 SQ Last administered on 10/23/16 09 :55; Start 10/23/16 at 08:30; Stop 10/24/16 at 11:12; Status DC Lidocaine/Sodium Bicarbonate (Buffered Lidocaine 1%) 3 ml 1X ONCE IJ Last administered on 10/23/16 08:48; Start 10/23/16 at 08:30; Stop 10/23/16 at 08:31 ; Status DC Heparin Sodium/ Sodium Chloride 60 unit 1X ONCE IV Last administered on 08:48; Start 10/23/16 at 08:30; Stop 10/23/16 at 08:31; Status DC Heparin Sodium (Porcine) 2,500 unit 1X ONCE INT CAT Last administered on 08:48; Start 10/23/16 at 08:30; Stop 10/23/16 at 08:31; Status DC Albuterol/ Ipratropium (Duoneb) 3 ml RTQID NEB Last administered on 10/27/16 20:05; Start 10/24/16 at 12:00 Albuterol/ Ipratropium (Duoneb) 3 ml 1X ONCE NEB Last administered on 09:11; Start 10/24/16 at 09:00; Stop 10/24/16 at 09:01; Status DC Budesonide (Pulmicort) 0.5 mg RTBID NEB Last administered on 10/27/16 20:06; Start 10/24/16 at 10:00 Insulin Aspart (Novolog) 7 units TIDAC SQ Last administered on 10/27/16 16:51 ; Start 10/24/16 at 11:30 Insulin Detemir (Levemir) 20 units DAILY08 SQ Last administered on 10/26/16 08 :43; Start 10/25/16 at 08:00 Potassium Chloride 20 meq 20 meq 1X ONCE PO Last administered on 10/24/16 18: 28; Start 10/24/16 at 12:00; Stop 10/24/16 at 12:01; Status DC Sodium Chloride 1,000 ml @ 1,000 mls/hr Q1H PRN IV hypotension; Start 10/24/16 at 13:00; Stop 10/24/16 at 18:59; Status DC Albumin Human (Albuminar) 200 ml @ 200 mls/hr 1X PRN PRN IV Hypotension; Start 10/24/16 at 14:00; Stop 10/24/16 at 19:59; Status DC Acetaminophen (Tylenol) 500 mg 1X PRN PRN PO MILD PAIN / TEMP; Start 10/24/16 at 14:00; Stop 10/25/16 at 13:59; Status DC Diphenhydramine HCl (Benadryl) 25 mg 1X PRN PRN IV ITCHING; Start 10/24/16 at 14:00; Stop 10/25/16 at 13:59; Status DC Diphenhydramine HCl (Benadryl) 25 mg 1X PRN PRN IV ITCHING; Start 10/24/16 at 14:00; Stop 10/25/16 at 13:59; Status DC Info (PHARMACY MONITORING -- do not chart) 1 each PRN DAILY PRN MC SEE COMMENTS ; Start 10/24/16 at 14:00; Stop 10/25/16 at 13:16; Status DC Potassium Chloride 20 meq 20 meq 1X ONCE PO ; Start 10/24/16 at 18:30; Stop 07/02 at 18:31; Status DC Amino Acids/ Electrolytes (Clinimix E 2.75%-5% Solution) 1,000 ml @ 55 mls/hr [id number] IV Last administered on 10/27/16 00:52; Start 10/25/16 at 12:00; Stop 10/27/16 at 14:10; Status DC Hydralazine HCl 10 mg 10 mg PRN Q4HRS PRN IVP ELEVATED BP, SEE COMMENTS Last administered on 10/27/16 06:05; Start 10/25/16 at 12:45 Sodium Chloride 1,000 ml @ 1,000 mls/hr Q1H PRN IV hypotension; Start 10/25/16 at 13:07; Stop 10/25/16 at 19:06; Status DC Albumin Human (Albuminar) 200 ml @ 200 mls/hr 1X PRN PRN IV Hypotension Last administered on 10/25/16 14:30; Start 10/25/16 at 13:15; Stop 10/25/16 at 19:14 ; Status DC Acetaminophen (Tylenol) 500 mg 1X PRN PRN PO MILD PAIN / TEMP; Start 10/25/16 at 13:15; Stop 10/26/16 at 13:14; Status DC Diphenhydramine HCl (Benadryl) 25 mg 1X PRN PRN IV ITCHING; Start 10/25/16 at 13:15; Stop 10/26/16 at 13:14; Status DC Diphenhydramine HCl (Benadryl) 25 mg 1X PRN PRN IV ITCHING; Start 10/25/16 at 13:15; Stop 10/26/16 at 13:14; Status DC Info (PHARMACY MONITORING -- do not chart) 1 each PRN DAILY PRN MC SEE COMMENTS ; Start 10/25/16 at 13:15 Famotidine (Pepcid) 20 mg QHS IVP Last administered on 10/26/16 21:17; Start 10/26/16 at 21:00; Stop 10/27/16 at 11:20; Status DC Furosemide 40 mg 40 mg [id number] IVP Last administered on 10/27/16 14:04; Start at 12:00 Sodium Chloride 1,000 ml @ 1,000 mls/hr Q1H PRN IV hypotension; Start 10/26/16 at 13:55; Stop 10/26/16 at 19:54; Status DC Sodium Chloride (Iv Sodium Chloride 0.9% 1000ml Bag) 1,000 ml @ 400 mls/hr Q2H30M PRN IV PATENCY; Start 10/26/16 at 13:55; Stop 10/27/16 at 01:54; Status DC Info 1 each 1 each PRN DAILY PRN MC SEE COMMENTS; Start 10/26/16 at 14:00; Status UNV Meropenem/Sodium Chloride (Merrem/Iv Sodium Chloride 0.9% 50ml) 50 ml @ 100 mls /hr Q6HRS IV Last administered on 10/28/16 06:00; Start 10/27/16 at 12:00; Stop 10/28/16 at 09:22; Status DC Metoprolol Tartrate (Lopressor) 25 mg BID PO Last administered on 10/27/16 20: 43; Start 10/27/16 at 12:00 Famotidine (Pepcid) 20 mg QHS PO Last administered on 10/27/16 20:43; Start at 21:00 Diltiazem HCl (Cardizem 24hr Cd) 180 mg [id number] PO Last administered on t 16:54; Start 10/27/16 at 17:00 Regadenoson (Lexiscan) 0.4 mg 1X ONCE IV Last administered on 10/28/16t 09:18 ; Start 10/28/16 at 07:45; Stop 10/28/16 at 07:46; Status DC Lactobacillus Acidophilus 1 tab 1 tab TIDWMEALS PO ; Start 10/28/16 at 12:00 Meropenem 500 mg/ Sodium Chloride 50 ml @ 100 mls/hr Q12HR IV ; Start 10/28/16 at 21:00 Sodium Chloride 1,000 ml @ 1,000 mls/hr Q1H PRN IV hypotension; Start 10/28/16 at 09:34; Stop 10/28/16 at 15:33 Albumin Human (Albuminar) 200 ml @ 200 mls/hr 1X PRN PRN IV Hypotension; Start 10/28/16 at 09:45; Stop 10/28/16 at 15:44 Acetaminophen (Tylenol) 500 mg 1X PRN PRN PO MILD PAIN / TEMP; Start 10/28/16 at 09:45; Stop 10/28/16 at 16:00 Diphenhydramine HCl (Benadryl) 25 mg 1X PRN PRN IV ITCHING; Start 10/28/16 at 09:45; Stop 10/28/16 at 16:00 Diphenhydramine HCl (Benadryl) 25 mg 1X PRN PRN IV ITCHING; Start 10/28/16 at 09:45; Stop 10/28/16 at 16:00 Sodium Chloride (Normal Saline Flush) 10 ml 1X PRN PRN IV AP catheter pack; Start 10/28/16 at 09:45; Stop 10/28/16 at 16:00 Sodium Chloride (Normal Saline Flush) 10 ml 1X PRN PRN IV BACK TUFTER catheter pack; Start 10/28/16 at 09:45; Stop 10/28/16 at 16:00 Labetalol HCl 10 mg 10 mg PRN Q1HR PRN IVP SBP > 180; Start 10/28/16 at 09:45; Stop 10/28/16 at 16:00 Sodium Chloride (Iv Sodium Chloride 0.9% 1000ml Bag) 1,000 ml @ 400 mls/hr Q2H30M PRN IV PATENCY; Start 10/28/16 at 09:34; Stop 10/28/16 at 21:33 Info (PHARMACY MONITORING -- do not chart) 1 each PRN DAILY PRN MC SEE COMMENTS ; Start 10/28/16 at 09:45; Status UNV Active Scripts Active Reported Zofran Odt (Ondansetron) 8 Mg Tab.rapdis 1 Tab PO Q8HRS Colace (Docusate Sodium) 100 Mg Capsule 1 Cap PO BID Hydrocodone-Apap 7.5-325 (Hydrocodone Bit/Acetaminophen) 1 Each Tablet 1 Tab PO Q3HRS PRN Glimepiride 4 Mg Tablet 1 Tab PO BID Glimepiride 2 Mg Tablet 1 Tab PO BID Levemir (Insulin Detemir) 100 Unit/1 Ml Vial 30 Unit SQ HS Vitals/I & O Vital Sign - Last 24 Hours 10/27/16 10/27/16 10/27/16 10/27/16 11:00 11:26 11:27 12:00 Temp 98.7 98.7 Pulse 126 123 126 146 Resp 15 15 B/P 132/66 132/66 132/66 140/65 Pulse Ox 96 95 O2 Delivery Nasal Cannula Nasal Cannula O2 Flow Rate 4.0 4.0 10/27/16 10/27/16 10/27/16 10/27/16 12:00 12:12 13:00 14:00 Pulse 125 118 Resp 14 19 B/P 134/53 132/62 Pulse Ox 96 98 98 O2 Delivery Nasal Cannula Nasal Cannula Nasal Cannula Nasal Cannula O2 Flow Rate 4.0 4.0 4.0 4.0 10/27/16 10/27/16 10/27/16 10/27/16 15:00 16:00 16:00 16:11 Temp 98.6 98.6 Pulse 105 106 Resp 17 16 B/P 141/69 140/65 Pulse Ox 97 96 97 O2 Delivery Nasal Cannula Nasal Cannula Nasal Cannula Nasal Cannula O2 Flow Rate 4.0 4.0 4.0 4.0 10/27/16 10/27/16 10/27/16 10/27/16 16:54 17:00 18:00 19:00 Temp 98.1 98.1 Pulse 105 76 100 83 Resp 16 18 18 B/P 140/65 140/82 148/58 142/77 Pulse Ox 97 97 98 O2 Delivery Nasal Cannula Nasal Cannula Nasal Cannula O2 Flow Rate 4.0 4.0 4.0 10/27/16 10/27/16 10/27/16 10/27/16 20:00 20:11 20:11 20:43 Pulse 83 B/P 142/77 Pulse Ox 8 8 O2 Delivery Nasal Cannula Nasal Cannula Nasal Cannula O2 Flow Rate 4.0 4.0 4.0 10/27/16 10/28/16 10/28/16 10/28/16 22:38 03:00 08:00 08:54 Temp 98.1 98.7 97.7 98.1 98.7 97.7 Pulse 96 90 78 Resp 20 18 16 B/P 136/79 151/75 156/69 Pulse Ox 96 92 5 O2 Delivery Nasal Cannula Nasal Cannula Nasal Cannula Simple Mask O2 Flow Rate 4.0 4.0 4.0 Intake and Output 10/27/16 10/27/16 10/28/16 15:00 23:00 07:00 Intake Total 400 ml 100 ml 600 ml Output Total 250 ml 100 ml 900 ml Balance 150 ml 0 ml -300 ml Problem List Problems Medical Problems: (1) Acute renal failure Status: Acute (2) Atrial fibrillation with RVR Status: Acute (3) Lactic acidosis Status: Acute (4) Severe sepsis Status: Acute (5) Uncontrolled diabetes mellitus Status: Acute Assessment Seems stable GI-sellers. Plan of Care: Continue current Tx, PO Meneses MD Oct 28, 2016 10:26
[2016-10-28 11:00] VITALS: BP 129/60
--- NOTE | 2016-10-28 11:01 | PDOC ---
PULMONARY PROGRESS NOTES Subjective Feels better on VM Vitals Vital Signs Date Time Temp Pulse Resp B/P Pulse Ox O2 Delivery O2 Flow Rate FiO2 10/28/16 08:54 97.7 78 16 156/69 5 Simple Mask 97.7 10/28/16 08:00 4.0 General: Alert Lungs: Clear Cardiovascular: S1, S2 Abdomen: Soft, Non-tender Neuro Exam: Alert, Oriented Extremities: Other (1+edema) Skin: Warm Labs Laboratory Tests Test 10/26/16 12:10 10/26/16 16:33 10/26/16 23:39 10/26/16 23:50 Glucose (Fingerstick) 209mg/dL (70-99) 78mg/dL (70-99) 37mg/dL (70-99) 135mg/dL (70-99) Test 10/26/16 23:58 10/27/16 04:38 10/27/16 08:10 10/27/16 11:37 Sodium Level 143mmol/L (136-145) 142mmol/L (136-145) Potassium Level 3.2mmol/L (3.5-5.1) 3.7mmol/L (3.5-5.1) Chloride Level 106mmol/L (98-107) 105mmol/L (98-107) Carbon Dioxide Level 31mmol/L (21-32) 31mmol/L (21-32) Anion Gap 6 (6-14) 6 (6-14) Blood Urea Nitrogen 21mg/dL (8-26) 23mg/dL (8-26) Creatinine 1.7mg/dL (0.7-1.3) 1.8mg/dL (0.7-1.3) Estimated GFR (Cockcroft-Gault) 39.9 37.4 Glucose Level 140mg/dL (70-99) 102mg/dL (70-99) Calcium Level 8.5mg/dL (8.5-10.1) 8.8mg/dL (8.5-10.1) Magnesium Level 1.8mg/dL (1.8-2.4) Reticulocyte Count (auto) 0.4% (0.5-2.5) Phosphorus Level 3.0mg/dL (2.6-4.7) Iron Level 25ug/dL (65-175) Total Iron Binding Capacity 98ug/dL (250-450) Iron Saturation 26% (15-34) Ferritin 470ng/mL (26-388) Albumin 2.3g/dL (3.4-5.0) Vitamin B12 Level 1199pg/mL (247-911) Serum Folate 4.39ng/ml (3.2-20.0) Glucose (Fingerstick) 127mg/dL (70-99) 184mg/dL (70-99) Test 10/27/16 16:48 10/28/16 05:09 Glucose (Fingerstick) 171mg/dL (70-99) Sodium Level 143mmol/L (136-145) Potassium Level 4.0mmol/L (3.5-5.1) Chloride Level 105mmol/L (98-107) Carbon Dioxide Level 29mmol/L (21-32) Anion Gap 9 (6-14) Blood Urea Nitrogen 40mg/dL (8-26) Creatinine 3.1mg/dL (0.7-1.3) Estimated GFR (Cockcroft-Gault) 20.0 Glucose Level 162mg/dL (70-99) Calcium Level 8.4mg/dL (8.5-10.1) Phosphorus Level 3.5mg/dL (2.6-4.7) Albumin 2.1g/dL (3.4-5.0) Laboratory Tests Test 10/27/16 11:37 10/27/16 16:48 10/28/16 05:09 Glucose (Fingerstick) 184mg/dL (70-99) 171mg/dL (70-99) Sodium Level 143mmol/L (136-145) Potassium Level 4.0mmol/L (3.5-5.1) Chloride Level 105mmol/L (98-107) Carbon Dioxide Level 29mmol/L (21-32) Anion Gap 9 (6-14) Blood Urea Nitrogen 40mg/dL (8-26) Creatinine 3.1mg/dL (0.7-1.3) Estimated GFR (Cockcroft-Gault) 20.0 Glucose Level 162mg/dL (70-99) Calcium Level 8.4mg/dL (8.5-10.1) Phosphorus Level 3.5mg/dL (2.6-4.7) Albumin 2.1g/dL (3.4-5.0) Medications Active Scripts Medications Dose Route/Sig Days Date Category Zofran Odt (Ondansetron) 8 Mg Tab.rapdis 1 Tab PO Q8HRS 09/30/16 Reported Colace (Docusate Sodium) 100 Mg Capsule 1 Cap PO BID 09/30/16 Reported Hydrocodone-Apap 7.5-325 (Hydrocodone Bit/Acetaminophen) 1 Each Tablet 1 Tab PO Q3HRS PRN 09/30/16 Reported Glimepiride 4 Mg Tablet 1 Tab PO BID 09/29/16 Reported Glimepiride 2 Mg Tablet 1 Tab PO BID 09/29/16 Reported Levemir (Insulin Detemir) 100 Unit/1 Ml Vial 30 Unit SQ HS 06/29/14 Reported Comments cxr reviewed improved Impression . 1. Acute hypoxic respiratory failure sec to heart failure 2. Clinically, less likely pneumonia. 3. Underlying chronic obstructive pulmonary disease. 4. Abnormal chest x-ray with diffuse interstitial infiltrates, more compatible with pulmonary edema 5. Acute kidney injury on chronic kidney disease. s/p emergent dialysis. 6. Hypoglycemia, now being corrected. 7. Normal ejection fraction on recent echo. Plan . 1. REPEAT CXR IMPROVING 2. PRN BIPAP 3. Titrated 02 4. HD PER NEPHRO 5. Continue bronchodilators. 6. Continue antibiotics. 7. Monitor blood sugars. MANUELITO MUÑOZ MD Oct 28, 2016 11:01
[2016-10-28] MEDS: HEPARIN PF for SUB-Q USE 5,000 UNIT/0.5 ML VIAL. SQ SCH (11:08)
[2016-10-28] MEDS: BUDESONIDE 0.5 MG/2 ML NEBU NEB SCH ×2 (11:09→19:40)
--- NOTE | 2016-10-28 11:10 | PDOC ---
Renal-Progress Notes Subjective Notes Notes NONE History of Present Illness Hx of present illness NO CHANGE Vitals Vitals Vital Signs Date Time Temp Pulse Resp B/P Pulse Ox O2 Delivery O2 Flow Rate FiO2 10/28/16 08:54 97.7 78 16 156/69 5 Simple Mask 97.7 10/28/16 08:00 4.0 Weight Weight [ ] I.O. Intake and Output Intake and Output 10/28/16 07:00 Intake Total 1100 ml Output Total 1250 ml Balance -150 ml Intake Oral 1050 ml IV Total 50 ml Output Urine Total 1250 ml # Voids 1 # Bowel Movements 1 Labs Labs Laboratory Tests Test 10/27/16 11:37 10/27/16 16:48 10/28/16 05:09 10/28/16 08:00 Glucose (Fingerstick) 184mg/dL (70-99) 171mg/dL (70-99) 158mg/dL (70-99) Sodium Level 143mmol/L (136-145) Potassium Level 4.0mmol/L (3.5-5.1) Chloride Level 105mmol/L (98-107) Carbon Dioxide Level 29mmol/L (21-32) Anion Gap 9 (6-14) Blood Urea Nitrogen 40mg/dL (8-26) Creatinine 3.1mg/dL (0.7-1.3) Estimated GFR (Cockcroft-Gault) 20.0 Glucose Level 162mg/dL (70-99) Calcium Level 8.4mg/dL (8.5-10.1) Phosphorus Level 3.5mg/dL (2.6-4.7) Albumin 2.1g/dL (3.4-5.0) Micro Micro Microbiology 10/25/16 Blood Culture - Preliminary, Resulted NO GROWTH AFTER 2 DAYS 10/21/16 Urine Culture - Final, Complete 10/21/16 Urine Culture Result 1 (HERBERT) - Final, Complete 10/22/16 Gram Stain - Final, Complete Physical Exam General Appearance: no apparent distress Skin: warm Respiratory: decreased breath sounds Heart: S1S2, RRR Abdomen: soft, bowel sounds present Genitourinary: bladder flat Extremities: pulses present Neurology: alert, oriented, follow commands Musculoskeletal: Osteoarthritis, Other (foot osteomyelitis) Assessment Assessment IMP CHF RHETT PROB CKD HYPOXIA RESP FAILURE ST-FROM [facility] AGONIST-BETTER PLAN STRESS TEST IV LASIX TO CONTINUE HD TODAY UF TO DW ENC PO WILL FOLLOW WILL PROB NEED TO HAVE OP HD SET UP FOR RHETT BEVERLY EDWARD MD Oct 28, 2016 11:10
[2016-10-28] MEDS: INSULIN DETEMIR 300 UNITS/3 ML INSULN.PEN. SQ SCH (11:32)
[2016-10-28] MEDS: LACTOBACILLUS ACIDOPH & BULGAR 1 TABLET. PO SCH ×2 (12:00→17:17)
--- NOTE | 2016-10-28 13:23 | PDOC ---
PROGRESS NOTES Chief Complaint Chief Complaint Hypoxic respiratory failure - CHF, diastolic - RHETT, improving - suspected underlying CKD - Hypokalemia: improved - L foot osteomyelitis; s/p I&D on 10/[address] Luis. wound vac in place. - DM2 - Afib - HTN, well controlled - COPD - acute diarrhea, resolved - metab acidosis, resolved - thrombocytopenia, chronic, stable; 80s-90s. suspect ITP - anemia, normocytic, normochromic History of Present Illness History of Present Illness Patient in no acute distress with sister at bedside when evaluated this AM. Had just returned from cardiac stress test. No acute events overnight. Going for hemodialysis this afternoon; tolerating well. Discussed case with RN. Vitals Vitals Vital Signs Date Time Temp Pulse Resp B/P Pulse Ox O2 Delivery O2 Flow Rate FiO2 10/28/16 11:13 99 Simple Mask 7.0 10/28/16 11:00 97.8 88 16 129/60 97.8 Physical Exam General: Alert, Cooperative, No acute distress Heart: Normal S1, Normal S2, Other (2/6 systolic murmur to LLS border; irreg, tachy) Lungs: Clear Abdomen: Normal bowel sounds, Soft, No tenderness Extremities: No clubbing, No cyanosis Skin: No rashes, Other (left foot wound covered with wound vac. bilat distal foot amputations) Labs LABS Laboratory Tests Test 10/27/16 16:48 10/28/16 05:09 10/28/16 08:00 Glucose (Fingerstick) 171mg/dL (70-99) 158mg/dL (70-99) Sodium Level 143mmol/L (136-145) Potassium Level 4.0mmol/L (3.5-5.1) Chloride Level 105mmol/L (98-107) Carbon Dioxide Level 29mmol/L (21-32) Anion Gap 9 (6-14) Blood Urea Nitrogen 40mg/dL (8-26) Creatinine 3.1mg/dL (0.7-1.3) Estimated GFR (Cockcroft-Gault) 20.0 Glucose Level 162mg/dL (70-99) Calcium Level 8.4mg/dL (8.5-10.1) Phosphorus Level 3.5mg/dL (2.6-4.7) Albumin 2.1g/dL (3.4-5.0) Review of Systems Review of Systems denies fever, chills improved shortness of air denies chest pain Assessment and Plan Assessmemt and Plan ASSESSMENT: - Hypoxic respiratory failure - CHF, diastolic - RHETT, improving - suspected underlying CKD - Hypokalemia: improved - L foot osteomyelitis; s/p I&D on 10/[address] Luis. wound vac in place. - DM2, poorly controlled - Afib - HTN, well controlled - COPD - acute diarrhea, resolved - metab acidosis, resolved - thrombocytopenia, chronic, stable; 80s-90s. suspect ITP - anemia, normocytic, normochromicHad a cardiac stress test today; results pending. PLAN: - had MPI today; results pending - HD today; cont schedule per nephrology - repeat daily labs - cont nebs and O2 supplementation - cont wound care - PTOT - appreciate all subspecialists on the case Problems: Comment Review of Relevant I have reviewed the following items jovan (where applicable) has been applied. Labs Laboratory Tests Test 10/26/16 16:33 10/26/16 23:39 10/26/16 23:50 10/26/16 23:58 Glucose (Fingerstick) 78mg/dL (70-99) 37mg/dL (70-99) 135mg/dL (70-99) Sodium Level 143mmol/L (136-145) Potassium Level 3.2mmol/L (3.5-5.1) Chloride Level 106mmol/L (98-107) Carbon Dioxide Level 31mmol/L (21-32) Anion Gap 6 (6-14) Blood Urea Nitrogen 21mg/dL (8-26) Creatinine 1.7mg/dL (0.7-1.3) Estimated GFR (Cockcroft-Gault) 39.9 Glucose Level 140mg/dL (70-99) Calcium Level 8.5mg/dL (8.5-10.1) Magnesium Level 1.8mg/dL (1.8-2.4) Test 10/27/16 04:38 10/27/16 08:10 10/27/16 11:37 10/27/16 16:48 Reticulocyte Count (auto) 0.4% (0.5-2.5) Sodium Level 142mmol/L (136-145) Potassium Level 3.7mmol/L (3.5-5.1) Chloride Level 105mmol/L (98-107) Carbon Dioxide Level 31mmol/L (21-32) Anion Gap 6 (6-14) Blood Urea Nitrogen 23mg/dL (8-26) Creatinine 1.8mg/dL (0.7-1.3) Estimated GFR (Cockcroft-Gault) 37.4 Glucose Level 102mg/dL (70-99) Calcium Level 8.8mg/dL (8.5-10.1) Phosphorus Level 3.0mg/dL (2.6-4.7) Iron Level 25ug/dL (65-175) Total Iron Binding Capacity 98ug/dL (250-450) Iron Saturation 26% (15-34) Ferritin 470ng/mL (26-388) Albumin 2.3g/dL (3.4-5.0) Vitamin B12 Level 1199pg/mL (247-911) Serum Folate 4.39ng/ml (3.2-20.0) Glucose (Fingerstick) 127mg/dL (70-99) 184mg/dL (70-99) 171mg/dL (70-99) Test 10/28/16 05:09 10/28/16 08:00 Sodium Level 143mmol/L (136-145) Potassium Level 4.0mmol/L (3.5-5.1) Chloride Level 105mmol/L (98-107) Carbon Dioxide Level 29mmol/L (21-32) Anion Gap 9 (6-14) Blood Urea Nitrogen 40mg/dL (8-26) Creatinine 3.1mg/dL (0.7-1.3) Estimated GFR (Cockcroft-Gault) 20.0 Glucose Level 162mg/dL (70-99) Calcium Level 8.4mg/dL (8.5-10.1) Phosphorus Level 3.5mg/dL (2.6-4.7) Albumin 2.1g/dL (3.4-5.0) Glucose (Fingerstick) 158mg/dL (70-99) Laboratory Tests Test 10/27/16 16:48 10/28/16 05:09 10/28/16 08:00 Glucose (Fingerstick) 171mg/dL (70-99) 158mg/dL (70-99) Sodium Level 143mmol/L (136-145) Potassium Level 4.0mmol/L (3.5-5.1) Chloride Level 105mmol/L (98-107) Carbon Dioxide Level 29mmol/L (21-32) Anion Gap 9 (6-14) Blood Urea Nitrogen 40mg/dL (8-26) Creatinine 3.1mg/dL (0.7-1.3) Estimated GFR (Cockcroft-Gault) 20.0 Glucose Level 162mg/dL (70-99) Calcium Level 8.4mg/dL (8.5-10.1) Phosphorus Level 3.5mg/dL (2.6-4.7) Albumin 2.1g/dL (3.4-5.0) Microbiology 10/25/16 Blood Culture - Preliminary, Resulted NO GROWTH AFTER 2 DAYS 10/21/16 Urine Culture - Final, Complete 10/21/16 Urine Culture Result 1 (HERBERT) - Final, Complete 10/22/16 Gram Stain - Final, Complete Medications Current Medications Diltiazem HCl 20 mg 20 mg 1X ONCE IVP Last administered on 10/20/16 13:35; Start 10/20/16 at 13:30; Stop 10/20/16 at 13:31; Status DC Diltiazem HCl 125 mg/Dextrose 125 ml @ 10 mls/hr 1X ONCE IV Last administered on 10/20/16 13:49; Start 10/20/16 at 13:30; Stop 10/20/16 at 19:37; Status DC Sodium Chloride (Iv Sodium Chloride 0.9% 1000ml Bag) 1,000 ml @ 100 mls/hr Q10H IV Last administered on 10/20/16 13:45; Start 10/20/16 at 13:30; Stop at 23:29; Status DC Diltiazem HCl (Cardizem) 20 mg 1X ONCE IVP Last administered on 10/20/16 14:16 ; Start 10/20/16 at 14:00; Stop 10/20/16 at 14:01; Status DC Vancomycin HCl (Vanco Per Pharmacy) 1 each PRN DAILY PRN MC SEE COMMENTS Last administered on 10/20/16 16:49; Start 10/20/16 at 14:45; Stop 10/21/16 at 07:42; Status DC Piperacillin Sod/ Tazobactam Sod 1 each 1 each PRN DAILY PRN MC SEE COMMENTS; Start 10/20/16 at 14:45; Stop 10/21/16 at 07:49; Status DC Vancomycin HCl 2 gm/Sodium Chloride 500 ml @ 250 mls/hr 1X ONCE IV Last administered on 10/20/16 15:45; Start 10/20/16 at 15:00; Stop 10/20/16 at 16:59; Status DC Piperacillin Sod/ Tazobactam Sod/ Sodium Chloride (Zosyn/Iv Sodium Chloride 0.9 % 50ml) 50 ml @ 100 mls/hr 1X ONCE IV Last administered on 10/20/16 15:04; Start 10/20/16 at 15:00; Stop 10/20/16 at 15:29; Status DC Ondansetron HCl (Zofran) 4 mg PRN Q8HRS PRN IV NAUSEA/VOMITING; Start 10/20/16 at 15:00; Stop 10/20/16 at 15:16; Status DC Fentanyl Citrate 50 mcg 50 mcg PRN Q2HR PRN IV PAIN; Start 10/20/16 at 15:00; Stop 10/21/16 at 14:59; Status DC Sodium Chloride (Iv Sodium Chloride 0.9% 1000ml Bag) 1,000 ml @ 100 mls/hr Q10H IV Last administered on 10/21/16 11:30; Start 10/20/16 at 15:30; Stop at 15:29; Status DC Acetaminophen (Tylenol) 650 mg PRN Q4HRS PRN PO FEVER; Start 10/20/16 at 15:00; Stop 10/21/16 at 14:59; Status DC Ondansetron HCl (Zofran) 4 mg PRN Q6HRS PRN IV NAUSEA/VOMITING; Start 10/20/16 at 15:12 Insulin Aspart (Novolog) 0-9 UNITS TIDWMEALS SQ Last administered on 10/28/16 11:33; Start 10/20/16 at 17:00 Dextrose 12.5 gm PRN Q15MIN PRN IV SEE COMMENTS Last administered on 10/26/16 23:42; Start 10/20/16 at 15:15 Docusate Sodium (Colace) 100 mg BID PO Last administered on 10/26/16 21:17; Start 10/20/16 at 21:00 Glimepiride (Amaryl) 2 mg BID PO ; Start 10/20/16 at 21:00; Status UNV Acetaminophen/ Hydrocodone Bitart (Lortab 7.5/325) 1 tab PRN Q3HRS PRN PO PAIN Last administered on 10/26/16 15:27; Start 10/20/16 at 15:15 Glimepiride (Amaryl) 4 mg BIDWMEALS PO Last administered on 10/20/16 17:32; Start 10/20/16 at 17:00; Stop 10/21/16 at 14:52; Status DC Insulin Detemir (Levemir) 30 units QHS SQ Last administered on 10/20/16 21:03; Start 10/20/16 at 21:00; Stop 10/21/16 at 14:52; Status DC Ondansetron HCl 4 mg 4 mg Q8HRS PO Last administered on 10/21/16 06:17; Start 10/20/16 at 22:00; Stop 10/21/16 at 17:24; Status DC Sodium Chloride 500 ml @ 500 mls/hr 1X ONCE IV ; Start 10/20/16 at 15:30; Stop 10/20/16 at 16:29; Status DC Piperacillin Sod/ Tazobactam Sod 2.25 gm/Sodium Chloride 50 ml @ 100 mls/hr Q6HRS IV Last administered on 10/27/16 06:03; Start 10/21/16 at 00:00; Stop at 07:43; Status DC Vancomycin HCl/ Sodium Chloride (Iv Sodium Chloride 0.9% 250ml) 250 ml @ 167 mls/hr Q24H IV ; Start 10/21/16 at 16:00; Stop 10/21/16 at 16:00; Status DC Vancomycin HCl 1 each 1 each 1X ONCE MC ; Start 10/22/16 at 15:30; Stop 10/22/16 at 15:31; Status Cancel Dopamine HCl/ Dextrose 250 ml @ 13.183 mls/ hr CONT PRN IV SEE I/O RECORD Last administered on 10/20/16 20:38; Start 10/20/16 at 19:30 Digoxin (Lanoxin) 250 mcg 1X ONCE IV Last administered on 10/20/16 21:02; Start 10/20/16 at 20:45; Stop 10/20/16 at 20:46; Status DC Digoxin (Lanoxin) 250 mcg 1X ONCE IV Last administered on 10/21/16 01:48; Start 10/21/16 at 02:00; Stop 10/21/16 at 02:01; Status DC Digoxin 250 mcg 250 mcg 1X ONCE IV Last administered on 10/21/16 04:12; Start 10/21/16 at 04:15; Stop 10/21/16 at 04:16; Status DC Diltiazem HCl 125 mg/Dextrose 125 ml @ 0 mls/hr CONT PRN IV SEE I/O RECORD Last administered on 10/21/16 23:03; Start 10/21/16 at 04:15; Stop 10/22/16 at 09: 44; Status DC Linezolid 300 ml @ 300 mls/hr Q12HR IV Last administered on 10/22/16 20:18; Start 10/21/16 at 09:00; Stop 10/23/16 at 07:26; Status DC Magnesium Sulfate/ Dextrose 50 ml @ 25 mls/hr PRN DAILY PRN IV for Mag < 1.7 on am labs Last administered on 10/22/16 15:15; Start 10/21/16 at 09:45 Albumin Human (Plasmanate) 500 ml @ 125 mls/hr 1X ONCE IV Last administered on 10/21/16 10:25; Start 10/21/16 at 09:45; Stop 10/21/16 at 13:44; Status DC Ondansetron HCl (Zofran) 4 mg PRN Q6HRS PRN IV Nausea; Start 10/21/16 at 10:00; Stop 10/22/16 at 09:59; Status DC Fentanyl Citrate (Fentanyl 2ml Vial) 25 mcg PRN Q5MIN PRN IV MILD PAIN; Start 10/21/16 at 10:00; Stop 10/22/16 at 09:59; Status DC Fentanyl Citrate (Fentanyl 2ml Vial) 50 mcg PRN Q5MIN PRN IV MODERATE PAIN; Start 10/21/16 at 10:00; Stop 10/22/16 at 09:59; Status DC Morphine Sulfate 1 mg 1 mg PRN Q10MIN PRN IV SEVERE PAIN; Start 10/21/16 at 10: 00; Stop 10/22/16 at 09:59; Status DC Lactated Ringer's (Iv Lactated Ringers) 1,000 ml @ 30 mls/hr Q24H IV ; Start at 09:50; Stop 10/21/16 at 21:49; Status DC Lidocaine HCl 2 ml 1X PRN PRN ID IV START; Start 10/21/16 at 10:00; Stop at 09:59; Status DC Hydromorphone HCl (Dilaudid) 0.5 mg PRN Q10MIN PRN IV SEV PAIN,Second choice; Start 10/21/16 at 10:00; Stop 10/22/16 at 09:59; Status DC Prochlorperazine Edisylate 5 mg 5 mg PACU PRN PRN IV NAUSEA; Start 10/21/16 at 10:00; Stop 10/22/16 at 09:59; Status DC Sodium Chloride (Iv Sodium Chloride 0.9% 500ml Bag) 500 ml @ 0 mls/hr PRN QID PRN IV UO< 30cc/hr over previous 6hrs; Start 10/21/16 at 10:15; Stop 10/21/16 at 17:27; Status DC Ondansetron HCl (Zofran) 4 mg PRN Q6HRS PRN IV Nausea; Start 10/21/16 at 11:30; Stop 10/22/16 at 11:29; Status DC Morphine Sulfate 1 mg 1 mg PRN Q10MIN PRN IV SEVERE PAIN; Start 10/21/16 at 11: 30; Stop 10/22/16 at 11:29; Status DC Lactated Ringer's (Iv Lactated Ringers) 1,000 ml @ 0 mls/hr Q0M IV ; Start 10/21 at 11:19; Stop 10/21/16 at 23:18; Status DC Lidocaine HCl 2 ml 1X PRN PRN ID IV START; Start 10/21/16 at 11:30; Stop at 11:29; Status DC Hydromorphone HCl (Dilaudid) 0.5 mg PRN Q10MIN PRN IV SEV PAIN,Second choice; Start 10/21/16 at 11:30; Stop 10/22/16 at 11:29; Status DC Prochlorperazine Edisylate (Compazine) 5 mg PACU PRN PRN IV NAUSEA; Start at 11:30; Stop 10/22/16 at 11:29; Status DC Atorvastatin Calcium (Lipitor) 20 mg QHS PO Last administered on 10/27/16 20: 43; Start 10/21/16 at 21:00 Aspirin (Ecotrin) 81 mg DAILYWBKFT PO Last administered on 10/27/16 08:08; Start 10/21/16 at 12:00 Ondansetron HCl (Zofran) 4 mg PRN Q6HRS PRN IV Nausea; Start 10/22/16 at 07:00; Stop 10/23/16 at 06:59; Status DC Morphine Sulfate 1 mg 1 mg PRN Q10MIN PRN IV SEVERE PAIN; Start 10/22/16 at 07: 00; Stop 10/23/16 at 06:59; Status DC Lactated Ringer's (Iv Lactated Ringers) 1,000 ml @ 30 mls/hr Q24H IV ; Start at 07:00; Stop 10/22/16 at 15:07; Status DC Lidocaine HCl 2 ml 1X PRN PRN ID IV START; Start 10/22/16 at 07:00; Stop at 06:59; Status DC Hydromorphone HCl (Dilaudid) 0.5 mg PRN Q10MIN PRN IV SEVERE PAIN, Second choice; Start 10/22/16 at 07:00; Stop 10/23/16 at 06:59; Status DC Prochlorperazine Edisylate (Compazine) 5 mg PACU PRN PRN IV NAUSEA; Start at 07:00; Stop 10/23/16 at 06:59; Status DC Aspirin (Ecotrin) 81 mg DAILYWBKFT PO ; Start 10/22/16 at 08:00; Status UNV Insulin Detemir (Levemir) 20 units QHS SQ ; Start 10/21/16 at 21:00; Stop at 08:29; Status DC Ondansetron HCl 4 mg 4 mg PRN Q8HRS PRN PO NAUSEA; Start 10/22/16 at 14:00 Sodium Chloride 1,000 ml @ 175 mls/hr Q5H43M IV Last administered on 05:30; Start 10/21/16 at 18:00; Stop 10/23/16 at 07:20; Status DC Dextrose 1,000 ml @ 75 mls/hr [id number] IV Last administered on 10/22/16 04:54; Start 10/22/16 at 04:45; Stop 10/22/16 at 15:05; Status DC Bupivacaine HCl (Sensorcaine Mpf 0.5%) 30 ml STK-MED ONCE .ROUTE ; Start at 06:45; Stop 10/22/16 at 06:46; Status DC Lidocaine HCl 20 ml 20 ml STK-MED ONCE .ROUTE ; Start 10/22/16 at 06:46; Stop 10/22/16 at 06:47; Status DC Propofol (Diprivan) 20 ml @ As Directed STK-MED ONCE IV ; Start 10/22/16 at 08:02 ; Stop 10/22/16 at 08:03; Status DC Lidocaine HCl 100 mg STK-MED ONCE .ROUTE ; Start 10/22/16 at 08:02; Stop 10/22/16 at 08:03; Status DC Ondansetron HCl (Zofran) 4 mg STK-MED ONCE .ROUTE ; Start 10/22/16 at 08:31; Stop 10/22/16 at 08:32; Status DC Phenylephrine HCl 1 mg STK-MED ONCE IV ; Start 10/22/16 at 08:31; Stop 10/22/16 at 08:32; Status DC Dexamethasone Sodium Phosphate (Decadron) 20 mg STK-MED ONCE .ROUTE ; Start 10/22 at 08:48; Stop 10/22/16 at 08:49; Status DC Sevoflurane (Ultane) 30 ml STK-MED ONCE IH ; Start 10/22/16 at 08:48; Stop at 08:49; Status DC Diltiazem HCl (Cardizem) 30 mg Q6HRS PO Last administered on 10/27/16 11:27; Start 10/22/16 at 10:00; Stop 10/27/16 at 12:31; Status DC Metoprolol Tartrate 5 mg 5 mg PRN Q6HRS PRN IVP ELEVATED BP, SEE COMMENTS; Start 10/22/16 at 09:45 Albumin Human (Plasmanate) 500 ml @ 125 mls/hr 1X ONCE IV Last administered on 10/22/16 11:20; Start 10/22/16 at 09:45; Stop 10/22/16 at 13:44; Status DC Info (Anti-Coagulation Monitoring By Pharmacy) 1 each PRN DAILY PRN MC SEE COMMENTS; Start 10/22/16 at 15:15; Status UNV Heparin Sodium (Porcine) 5,000 unit Q12HR SQ Last administered on 10/28/16 11: 08; Start 10/22/16 at 21:00 Loperamide HCl (Imodium) 2 mg PRN Q15MIN PRN PO DIARRHEA Last administered on 09:27; Start 10/22/16 at 20:00 Insulin Human Regular (Novolin R Vial) 10 unit 1X ONCE IV Last administered on 10/22/16 23:52; Start 10/22/16 at 01:00; Stop 10/22/16 at 23:46; Status DC Insulin Detemir (Levemir) 10 units 1X ONCE SQ Last administered on 10/22/16 23 :53; Start 10/22/16 at 23:45; Stop 10/22/16 at 23:46; Status DC Insulin Human Regular 10 unit 10 unit 1X ONCE IV Last administered on 00:09; Start 10/23/16 at 00:00; Stop 10/23/16 at 00:01; Status DC Sodium Chloride 38.75 meq/Sodium Bicarbonate 75 meq/Sterile Water 1,084.6875 ml @ 150 mls/hr CONT PRN IV SEE I/O RECORD Last administered on 10/24/16 07:12; Start 10/23/16 at 07:30 Albumin Human (Albuminar) 100 ml @ 100 mls/hr TID IV Last administered on 10/24 21:23; Start 10/23/16 at 09:00; Stop 10/24/16 at 21:59; Status DC Heparin Sodium (Porcine) 10,000 unit STK-MED ONCE .ROUTE ; Start 10/23/16 at 07: 55; Stop 10/23/16 at 07:56; Status DC Lidocaine/Sodium Bicarbonate 20 ml 20 ml STK-MED ONCE IJ ; Start 10/23/16 at 07: 55; Stop 10/23/16 at 07:56; Status DC Heparin Sodium/ Sodium Chloride 500 ml @ As Directed STK-MED ONCE .ROUTE ; Start 10/23/16 at 07:55; Stop 10/23/16 at 07:56; Status DC Insulin Detemir (Levemir) 20 units [id number] SQ ; Start 10/23/16 at 08:00; Stop at 08:01; Status DC Insulin Aspart (Novolog) 10 units TIDAC SQ Last administered on 10/23/16 17:46 ; Start 10/23/16 at 11:30; Stop 10/24/16 at 11:12; Status DC Insulin Detemir (Levemir) 30 units DAILY08 SQ Last administered on 10/23/16 09 :55; Start 10/23/16 at 08:30; Stop 10/24/16 at 11:12; Status DC Lidocaine/Sodium Bicarbonate (Buffered Lidocaine 1%) 3 ml 1X ONCE IJ Last administered on 10/23/16 08:48; Start 10/23/16 at 08:30; Stop 10/23/16 at 08:31 ; Status DC Heparin Sodium/ Sodium Chloride 60 unit 1X ONCE IV Last administered on 08:48; Start 10/23/16 at 08:30; Stop 10/23/16 at 08:31; Status DC Heparin Sodium (Porcine) 2,500 unit 1X ONCE INT CAT Last administered on 08:48; Start 10/23/16 at 08:30; Stop 10/23/16 at 08:31; Status DC Albuterol/ Ipratropium (Duoneb) 3 ml RTQID NEB Last administered on 10/28/16 11:09; Start 10/24/16 at 12:00 Albuterol/ Ipratropium (Duoneb) 3 ml 1X ONCE NEB Last administered on 09:11; Start 10/24/16 at 09:00; Stop 10/24/16 at 09:01; Status DC Budesonide (Pulmicort) 0.5 mg RTBID NEB Last administered on 10/28/16 11:09; Start 10/24/16 at 10:00 Insulin Aspart (Novolog) 7 units TIDAC SQ Last administered on 10/27/16 16:51 ; Start 10/24/16 at 11:30 Insulin Detemir (Levemir) 20 units DAILY08 SQ Last administered on 10/28/16 11 :32; Start 10/25/16 at 08:00 Potassium Chloride 20 meq 20 meq 1X ONCE PO Last administered on 10/24/16 18: 28; Start 10/24/16 at 12:00; Stop 10/24/16 at 12:01; Status DC Sodium Chloride 1,000 ml @ 1,000 mls/hr Q1H PRN IV hypotension; Start 10/24/16 at 13:00; Stop 10/24/16 at 18:59; Status DC Albumin Human (Albuminar) 200 ml @ 200 mls/hr 1X PRN PRN IV Hypotension; Start 10/24/16 at 14:00; Stop 10/24/16 at 19:59; Status DC Acetaminophen (Tylenol) 500 mg 1X PRN PRN PO MILD PAIN / TEMP; Start 10/24/16 at 14:00; Stop 10/25/16 at 13:59; Status DC Diphenhydramine HCl (Benadryl) 25 mg 1X PRN PRN IV ITCHING; Start 10/24/16 at 14:00; Stop 10/25/16 at 13:59; Status DC Diphenhydramine HCl (Benadryl) 25 mg 1X PRN PRN IV ITCHING; Start 10/24/16 at 14:00; Stop 10/25/16 at 13:59; Status DC Info (PHARMACY MONITORING -- do not chart) 1 each PRN DAILY PRN MC SEE COMMENTS ; Start 10/24/16 at 14:00; Stop 10/25/16 at 13:16; Status DC Potassium Chloride 20 meq 20 meq 1X ONCE PO ; Start 10/24/16 at 18:30; Stop 07/02 at 18:31; Status DC Amino Acids/ Electrolytes (Clinimix E 2.75%-5% Solution) 1,000 ml @ 55 mls/hr [id number] IV Last administered on 10/27/16 00:52; Start 10/25/16 at 12:00; Stop 10/27/16 at 14:10; Status DC Hydralazine HCl 10 mg 10 mg PRN Q4HRS PRN IVP ELEVATED BP, SEE COMMENTS Last administered on 10/27/16 06:05; Start 10/25/16 at 12:45 Sodium Chloride 1,000 ml @ 1,000 mls/hr Q1H PRN IV hypotension; Start 10/25/16 at 13:07; Stop 10/25/16 at 19:06; Status DC Albumin Human (Albuminar) 200 ml @ 200 mls/hr 1X PRN PRN IV Hypotension Last administered on 10/25/16 14:30; Start 10/25/16 at 13:15; Stop 10/25/16 at 19:14 ; Status DC Acetaminophen (Tylenol) 500 mg 1X PRN PRN PO MILD PAIN / TEMP; Start 10/25/16 at 13:15; Stop 10/26/16 at 13:14; Status DC Diphenhydramine HCl (Benadryl) 25 mg 1X PRN PRN IV ITCHING; Start 10/25/16 at 13:15; Stop 10/26/16 at 13:14; Status DC Diphenhydramine HCl (Benadryl) 25 mg 1X PRN PRN IV ITCHING; Start 10/25/16 at 13:15; Stop 10/26/16 at 13:14; Status DC Info (PHARMACY MONITORING -- do not chart) 1 each PRN DAILY PRN MC SEE COMMENTS ; Start 10/25/16 at 13:15 Famotidine (Pepcid) 20 mg QHS IVP Last administered on 10/26/16 21:17; Start 10/26/16 at 21:00; Stop 10/27/16 at 11:20; Status DC Furosemide 40 mg 40 mg [id number] IVP Last administered on 10/27/16 14:04; Start at 12:00 Sodium Chloride 1,000 ml @ 1,000 mls/hr Q1H PRN IV hypotension; Start 10/26/16 at 13:55; Stop 10/26/16 at 19:54; Status DC Sodium Chloride (Iv Sodium Chloride 0.9% 1000ml Bag) 1,000 ml @ 400 mls/hr Q2H30M PRN IV PATENCY; Start 10/26/16 at 13:55; Stop 10/27/16 at 01:54; Status DC Info 1 each 1 each PRN DAILY PRN MC SEE COMMENTS; Start 10/26/16 at 14:00; Status UNV Meropenem/Sodium Chloride (Merrem/Iv Sodium Chloride 0.9% 50ml) 50 ml @ 100 mls /hr Q6HRS IV Last administered on 10/28/16 06:00; Start 10/27/16 at 12:00; Stop 10/28/16 at 09:22; Status DC Metoprolol Tartrate (Lopressor) 25 mg BID PO Last administered on 10/27/16 20: 43; Start 10/27/16 at 12:00 Famotidine (Pepcid) 20 mg QHS PO Last administered on 10/27/16 20:43; Start at 21:00 Diltiazem HCl (Cardizem 24hr Cd) 180 mg [id number] PO Last administered on 16:54; Start 10/27/16 at 17:00 Regadenoson (Lexiscan) 0.4 mg 1X ONCE IV Last administered on 10/28/16 09:18 ; Start 10/28/16 at 07:45; Stop 10/28/16 at 07:46; Status DC Lactobacillus Acidophilus 1 tab 1 tab TIDWMEALS PO ; Start 10/28/16 at 12:00 Meropenem 500 mg/ Sodium Chloride 50 ml @ 100 mls/hr Q12HR IV ; Start 10/28/16 at 21:00 Sodium Chloride 1,000 ml @ 1,000 mls/hr Q1H PRN IV hypotension; Start 10/28/16 at 09:34; Stop 10/28/16 at 15:33 Albumin Human (Albuminar) 200 ml @ 200 mls/hr 1X PRN PRN IV Hypotension; Start 10/28/16 at 09:45; Stop 10/28/16 at 15:44 Acetaminophen (Tylenol) 500 mg 1X PRN PRN PO MILD PAIN / TEMP; Start 10/28/16 at 09:45; Stop 10/28/16 at 16:00 Diphenhydramine HCl (Benadryl) 25 mg 1X PRN PRN IV ITCHING; Start 10/28/16 at 09:45; Stop 10/28/16 at 16:00 Diphenhydramine HCl (Benadryl) 25 mg 1X PRN PRN IV ITCHING; Start 10/28/16 at 09:45; Stop 10/28/16 at 16:00 Sodium Chloride (Normal Saline Flush) 10 ml 1X PRN PRN IV AP catheter pack; Start 10/28/16 at 09:45; Stop 10/28/16 at 16:00 Sodium Chloride (Normal Saline Flush) 10 ml 1X PRN PRN IV ROAD [employer] catheter pack; Start 10/28/16 at 09:45; Stop 10/28/16 at 16:00 Labetalol HCl 10 mg 10 mg PRN Q1HR PRN IVP SBP > 180; Start 10/28/16 at 09:45; Stop 10/28/16 at 16:00 Sodium Chloride (Iv Sodium Chloride 0.9% 1000ml Bag) 1,000 ml @ 400 mls/hr Q2H30M PRN IV PATENCY; Start 10/28/16 at 09:34; Stop 10/28/16 at 21:33 Info 1 each 1 each PRN DAILY PRN MC SEE COMMENTS; Start 10/28/16 at 09:45; Status UNV Sodium Chloride (Iv Sodium Chloride 0.9% 1000ml Bag) 1,000 ml @ 1,000 mls/hr Q1H PRN IV hypotension; Start 10/28/16 at 12:47; Stop 10/28/16 at 18:46; Status UNV Diphenhydramine HCl (Benadryl) 25 mg 1X PRN PRN IV ITCHING; Start 10/28/16 at 13:00; Stop 10/29/16 at 12:59; Status UNV Diphenhydramine HCl (Benadryl) 25 mg 1X PRN PRN IV ITCHING; Start 10/28/16 at 13:00; Stop 10/29/16 at 12:59; Status UNV Sodium Chloride (Normal Saline Flush) 10 ml 1X PRN PRN IV AP catheter pack; Start 10/28/16 at 13:00; Stop 10/29/16 at 12:59; Status UNV Sodium Chloride 10 ml 10 ml 1X PRN PRN IV ROAD [employer] catheter pack; Start 10/28/16 at 13:00; Stop 10/29/16 at 12:59; Status UNV Sodium Chloride (Iv Sodium Chloride 0.9% 1000ml Bag) 1,000 ml @ 400 mls/hr Q2H30M PRN IV PATENCY; Start 10/28/16 at 12:47; Stop 10/29/16 at 00:46; Status UNV Info (PHARMACY MONITORING -- do not chart) 1 each PRN DAILY PRN MC SEE COMMENTS ; Start 10/28/16 at 13:00; Status UNV Active Scripts Active Reported Zofran Odt (Ondansetron) 8 Mg Tab.rapdis 1 Tab PO Q8HRS Colace (Docusate Sodium) 100 Mg Capsule 1 Cap PO BID Hydrocodone-Apap 7.5-325 (Hydrocodone Bit/Acetaminophen) 1 Each Tablet 1 Tab PO Q3HRS PRN Glimepiride 4 Mg Tablet 1 Tab PO BID Glimepiride 2 Mg Tablet 1 Tab PO BID Levemir (Insulin Detemir) 100 Unit/1 Ml Vial 30 Unit SQ HS Vitals/I & O Vital Sign - Last 24 Hours 10/27/16 10/27/16 10/27/16 10/27/16 14:00 15:00 16:00 16:00 Temp 98.6 98.6 Pulse 118 105 106 Resp 19 17 16 B/P 132/62 141/69 140/65 Pulse Ox 98 97 96 O2 Delivery Nasal Cannula Nasal Cannula Nasal Cannula Nasal Cannula O2 Flow Rate 4.0 4.0 4.0 4.0 10/27/16 10/27/16 10/27/16 10/27/16 16:11 16:54 17:00 18:00 Pulse 105 76 100 Resp 16 18 B/P 140/65 140/82 148/58 Pulse Ox 97 97 97 O2 Delivery Nasal Cannula Nasal Cannula Nasal Cannula O2 Flow Rate 4.0 4.0 4.0 10/27/16 10/27/16 10/27/16 10/27/16 19:00 20:00 20:11 20:11 Temp 98.1 98.1 Pulse 83 Resp 18 B/P 142/77 Pulse Ox 98 8 8 O2 Delivery Nasal Cannula Nasal Cannula Nasal Cannula Nasal Cannula O2 Flow Rate 4.0 4.0 4.0 4.0 10/27/16 10/27/16 10/28/16 10/28/16 20:43 22:38 03:00 08:00 Temp 98.1 98.7 98.1 98.7 Pulse 83 96 90 Resp 20 18 B/P 142/77 136/79 151/75 Pulse Ox 96 92 O2 Delivery Nasal Cannula Nasal Cannula Nasal Cannula O2 Flow Rate 4.0 4.0 4.0 10/28/16 10/28/16 10/28/16 08:54 11:00 11:13 Temp 97.7 97.8 97.7 97.8 Pulse 78 88 Resp 16 16 B/P 156/69 129/60 Pulse Ox 5 5 99 O2 Delivery Simple Mask Simple Mask Simple Mask O2 Flow Rate 7.0 Intake and Output 10/27/16 10/27/16 10/28/16 15:00 23:00 07:00 Intake Total 400 ml 100 ml 600 ml Output Total 250 ml 100 ml 900 ml Balance 150 ml 0 ml -300 ml OSCAR SOLIS III DO Oct 28, 2016 13:23
--- NOTE | 2016-10-28 14:47 | PDOC ---
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 10/28/16 1447: CARDIO Progress Notes Date and Time Date of Service 10/28/16 Time of Evaluation 1340 Subjective Subjective: No Chest Pain, No shortness of breath, No Palpitations, No Dizziness Comments: seen on HD Vitals Vitals Vital Signs Date Time Temp Pulse Resp B/P Pulse Ox O2 Delivery O2 Flow Rate FiO2 10/28/16 11:13 99 Simple Mask 7.0 10/28/16 11:00 97.8 88 16 129/60 97.8 Weight Weight [ ] Input and Output Intake and Output Intake and Output 10/28/16 07:00 Intake Total 1100 ml Output Total 1250 ml Balance -150 ml Intake Oral 1050 ml IV Total 50 ml Output Urine Total 1250 ml # Voids 1 # Bowel Movements 1 Laboratory Labs Laboratory Tests Test 10/27/16 16:48 10/28/16 05:09 10/28/16 08:00 Glucose (Fingerstick) 171mg/dL (70-99) 158mg/dL (70-99) Sodium Level 143mmol/L (136-145) Potassium Level 4.0mmol/L (3.5-5.1) Chloride Level 105mmol/L (98-107) Carbon Dioxide Level 29mmol/L (21-32) Anion Gap 9 (6-14) Blood Urea Nitrogen 40mg/dL (8-26) Creatinine 3.1mg/dL (0.7-1.3) Estimated GFR (Cockcroft-Gault) 20.0 Glucose Level 162mg/dL (70-99) Calcium Level 8.4mg/dL (8.5-10.1) Phosphorus Level 3.5mg/dL (2.6-4.7) Albumin 2.1g/dL (3.4-5.0) Microbiology Micro Microbiology 10/25/16 Blood Culture - Preliminary, Resulted NO GROWTH AFTER 3 DAYS 10/21/16 Urine Culture - Final, Complete 10/21/16 Urine Culture Result 1 (HERBERT) - Final, Complete 10/22/16 Gram Stain - Final, Complete Physical Exam HEENT: Neck Supple W Full Motion Chest: Symmetric LUNGS: Clear to Auscultation, Other (diminished ) Heart: S1S2, RRR, murmurs (2/6 LSB), other (tele SR rate 90) Abdomen: Soft N/T Extremities: Other (wound vac intact to left foot, 1+ LLE edema ) Neurology: alert, oriented, follow commands Assessment Assessment 1. Atrial fibrillation with RVR 2. Sepsis/bacteremia/osteo 3. RHETT 4. DM, type II with peripheral neuropathy 5. PAD Recommendation MPI underway today to r/o ischemia Maintaining SR- continue with Cardizem and Metoprolol. Will add Eliquis for stroke prevention; cleared with ortho Continue supportive care. ERENDIRA SARMIENTO MD 10/28/16 2256: CARDIO Progress Notes Plan Plan Pt. seen and examined. 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 No sign event overnight On exam he appears fatigued. Rhonchi in the lungs. No edema Labs reviewed. Meds reviewed. Recs as above. MPI negative. Will follow peripherally. LANIE MILLS APRN Oct 28, 2016 14:47 ERENDIRA SARMIENTO MD Oct 28, 2016 22:56
[2016-10-28 15:00] VITALS: BP 144/89
[2016-10-28] MEDS: DILTIAZEM HCL 180 MG CAP.ER.24H PO SCH (17:11)
--- NOTE | 2016-10-28 18:54 | RAD ---
APPROVED REPORT Test Type: Pharmacological Stress Nurse/Tech: Nelida Addison R.N. Test Indications: a fib Cardiac History: Diabetes, smoker Medications: See Electronic Medical Record Medical History: See Electronic Medical Record Resting ECG: NSR with PAC's Resting Heart Rate: 83 bpm Resting Blood Pressure: 149/60mmHg Pretest Chest Pain: No chest pain Nurse/Tech Notes S1S2, kirt coarse breath sounds Consent: The procedure was explained to the patient in lay terms. Informed consent was witnessed. Timothy eout was entered into [employer]. History and Stress Test performed by Nelida Addison R.N. Pharm. Details Pharmacologic stress testing was performed using 0.4mg per 5ml of regadenoson given intravenously ove r 7-10 seconds. Stress Symptoms No chest pain or symptoms. POST EXERCISE Reason for Termination: Infusion complete Max HR: 98 bpm Max Blood Pressure: 124/45mmHg Blood Pressure response to exercise: Normal blood pressure response during stress. Chest Pain: No. Arrhythmia: No. ST Change: No. INTERPRETATION Stress EKG Conclusion: No evidence of stress induced EKG changes. Imaging Protocol IMAGE PROTOCOL: Rest Tc-99m/stress Tc-99m 1 day Rest: Stress: Viability: Radiopharm.Tc99m KidvxpgzcQd90s Sestamibi Kamy96iAv 33mCi Duration 15min. 10min. Img Date 10/28/2016 10/28/2016 Inj-Img Aibt95ngp. 60min. Rest Admin Site:IV - Right ForearmAdministrator:RT Vimal (R)(N) Stress Admin Site: IV - Right ForearmAdministrator: RT Vimal (R)(N) STRESS DATA End Diast. Vol.124.0mlAv. Heart Rate85.0bpm End Syst. Vol.35.0mlCO Index BSA0.0L/min Myocardial Ovvx432.0gEject. Zlamvojq26.0% Stress Rates Pk. Fill Rate2.69EDV/secLVtime Pk. Fill 76.20msec Pk. Empty Rate3.73ESV/secLVtime Pk. Dkasj192.09msec 08/18 Pk. Fill1.99EDV/sec Stress Scores Regional WT1.00Summed WT5.00 Regional WM0.00Summed WM0.00 The rest and stress images show normal perfusion, normal contraction and thickening. LV Perf. Quant 17 Seg. SSS0.00 17 Seg. SRS0.00 17 Seg. SDS0.00 Stress Defect Extent (% LAD)0.00Rest Defect Extent (% LAD)0.00Rev. Defect Extent (% LAD)0.00 Stress Defect Extent (% LCX) 0.00Rest Defect Extent (% LCX)0.00Rev. Defect Extent (% LCX)0.00 Stress Defect Extent (% RCA)0.00Rest Defect Extent (% RCA)0.00Rev. Defect Extent (% RCA)0.00 Stress Defect Extent (% ABIGAIL)0.00Rest Defect Extent (% ABIGAIL)0.00Rev. Defect Extent (% ABIGAIL)0.00 Other Information Quality:Good Risk Assessment: Low Risk Conclusion 1. No evidence of stress induced EKG changes 2. Normal myocardial perfusion at stress/rest. 3. Normal EF at > 70% 4. Low risk study
[2016-10-28 19:00] VITALS: BP 136/58
[2016-10-28] MEDS: FAMOTIDINE 20 MG TABLET. PO SCH (21:23)
[2016-10-28] MEDS: ATORVASTATIN CALCIUM 20 MG TABLET PO SCH (21:23)
[2016-10-28] MEDS: APIXABAN 5 MG TABLET. PO SCH (21:24)
[2016-10-28 23:41] VITALS: BP 126/47
[2016-10-29 03:00] VITALS: BP 143/56
[2016-10-29 03:59] LABS: BASO % 1 % (0-3); EOS % 3 % (0-3); LYMPH # 0.9 x10^3/uL (1.0-4.8); LYMPH % 14 % (24-48); MEAN CORPUSCULAR HEMOGLOBIN 28 pg (25-35); MEAN CORPUSCULAR HGB CONC 33 g/dL (31-37); MEAN CORPUSCULAR VOLUME 85 fL (79-100); MONO % 6 % (0-9); NEUT % 77 % (31-73); PLATELET COUNT 175 x10^3/uL (140-400); RED BLOOD COUNT 3.19 x10^6/uL (4.30-5.70); RED CELL DISTRIBUTION WIDTH 14.7 % (11.5-14.5)
[2016-10-29 04:15] LABS: CALCIUM 8.4 mg/dL (8.5-10.1); CREATININE 2.3 mg/dL (0.7-1.3); GFR 28.2; POTASSIUM 3.8 mmol/L (3.5-5.1)
[2016-10-29] MEDS: IPRATRPIUM/ALBUTEROL 0.5/2.5MG 3 ML NEBU. NEB SCH ×4 (07:01→20:15)
[2016-10-29] MEDS: BUDESONIDE 0.5 MG/2 ML NEBU NEB SCH ×2 (07:01→20:15)
[2016-10-29 07:50] VITALS: BP 142/65
[2016-10-29] MEDS: INSULIN ASPART 300 UNITS/3 ML INSULN.PEN SQ SCH ×6 (08:00→16:44)
--- NOTE | 2016-10-29 08:13 | PDOC ---
Infectious Disease Note Subjective Subjective States ok Hungry Foot ok ROS ROS GEN: Denies fevers, chills, sweats HEENT: Denies blurred vision, sore throat CV: Denies chest pain RESP: Denies shortness of air, cough GI: Denies n/v/d NEURO: Denies confusion, dizziness MSK: Denies weakness, joint pain/swelling Vital Sign Vital Signs Vital Signs Date Time Temp Pulse Resp B/P Pulse Ox O2 Delivery O2 Flow Rate FiO2 10/29/16 07:03 96 Nasal Cannula 4.0 10/29/16 03:00 97.9 116 20 143/56 97.9 Physical Exam PHYSICAL EXAM GENERAL: NAD, Alert HEENT: PERRL, OC/OP - clear NECK: Supple, no JVD, no LN LUNGS: Clear HEART: S1S2, no gallop, no murmur ABD: Soft, NT, no organomegaly, no rebound [place] EXT: No edema, no cyanosis. 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, oriented x 3, no focal neurologic deficit SKIN: No rash IV: RIJ HD Labs Lab Laboratory Tests Test 10/28/16 11:07 10/28/16 16:54 10/28/16 21:02 10/29/16 03:43 Glucose (Fingerstick) 227mg/dL (70-99) 83mg/dL (70-99) 75mg/dL (70-99) White Blood Count 7.0x10^3/uL (4.0-11.0) Red Blood Count 3.19x10^6/uL (4.30-5.70) Hemoglobin 9.0g/dL (13.0-17.5) Hematocrit 27.0% (39.0-53.0) Mean Corpuscular Volume 85fL (79-100) Mean Corpuscular Hemoglobin 28pg (25-35) Mean Corpuscular Hemoglobin Concent 33g/dL (31-37) Red Cell Distribution Width 14.7% (11.5-14.5) Platelet Count 175x10^3/uL (140-400) Neutrophils (%) (Auto) 77% (31-73) Lymphocytes (%) (Auto) 14% (24-48) Monocytes (%) (Auto) 6% (0-9) Eosinophils (%) (Auto) 3% (0-3) Basophils (%) (Auto) 1% (0-3) Neutrophils # (Auto) 5.4x10^3uL (1.8-7.7) Lymphocytes # (Auto) 0.9x10^3/uL (1.0-4.8) Monocytes # (Auto) 0.4x10^3/uL (0.0-1.1) Eosinophils # (Auto) 0.2x10^3/uL (0.0-0.7) Basophils # (Auto) 0.0x10^3/uL (0.0-0.2) Sodium Level 143mmol/L (136-145) Potassium Level 3.8mmol/L (3.5-5.1) Chloride Level 106mmol/L (98-107) Carbon Dioxide Level 32mmol/L (21-32) Anion Gap 5 (6-14) Blood Urea Nitrogen 29mg/dL (8-26) Creatinine 2.3mg/dL (0.7-1.3) Estimated GFR (Cockcroft-Gault) 28.2 Glucose Level 81mg/dL (70-99) Calcium Level 8.4mg/dL (8.5-10.1) Objective Assessment BC + ,Group A strep 10/20 repeat cults neg SOA - resolved Extensive left foot infection s/p I and D 10/[address] MSSA/Group A/ Alcaligenes/Bacteroides Septic shock - resolved Lactic acidosis DM Plan Plan of Care Meropenem. F/u sensitivities Repeat Blood cults pending Local wound care F/u labs supportive care CADY REYNA MD Oct 29, 2016 08:13
--- NOTE | 2016-10-29 08:27 | PDOC ---
ORTHO PROGRESS NOTES Subjective not much foot pain, feels "great" overall Vitals Vital Signs Date Time Temp Pulse Resp B/P Pulse Ox O2 Delivery O2 Flow Rate FiO2 10/29/16 07:03 96 Nasal Cannula 4.0 10/29/16 03:00 97.9 116 20 143/56 97.9 Labs Laboratory Tests Test 10/27/16 11:37 10/27/16 16:48 10/28/16 05:09 10/28/16 08:00 Glucose (Fingerstick) 184mg/dL (70-99) 171mg/dL (70-99) 158mg/dL (70-99) Sodium Level 143mmol/L (136-145) Potassium Level 4.0mmol/L (3.5-5.1) Chloride Level 105mmol/L (98-107) Carbon Dioxide Level 29mmol/L (21-32) Anion Gap 9 (6-14) Blood Urea Nitrogen 40mg/dL (8-26) Creatinine 3.1mg/dL (0.7-1.3) Estimated GFR (Cockcroft-Gault) 20.0 Glucose Level 162mg/dL (70-99) Calcium Level 8.4mg/dL (8.5-10.1) Phosphorus Level 3.5mg/dL (2.6-4.7) Albumin 2.1g/dL (3.4-5.0) Test 10/28/16 11:07 10/28/16 16:54 10/28/16 21:02 10/29/16 03:43 Glucose (Fingerstick) 227mg/dL (70-99) 83mg/dL (70-99) 75mg/dL (70-99) White Blood Count 7.0x10^3/uL (4.0-11.0) Red Blood Count 3.19x10^6/uL (4.30-5.70) Hemoglobin 9.0g/dL (13.0-17.5) Hematocrit 27.0% (39.0-53.0) Mean Corpuscular Volume 85fL (79-100) Mean Corpuscular Hemoglobin 28pg (25-35) Mean Corpuscular Hemoglobin Concent 33g/dL (31-37) Red Cell Distribution Width 14.7% (11.5-14.5) Platelet Count 175x10^3/uL (140-400) Neutrophils (%) (Auto) 77% (31-73) Lymphocytes (%) (Auto) 14% (24-48) Monocytes (%) (Auto) 6% (0-9) Eosinophils (%) (Auto) 3% (0-3) Basophils (%) (Auto) 1% (0-3) Neutrophils # (Auto) 5.4x10^3uL (1.8-7.7) Lymphocytes # (Auto) 0.9x10^3/uL (1.0-4.8) Monocytes # (Auto) 0.4x10^3/uL (0.0-1.1) Eosinophils # (Auto) 0.2x10^3/uL (0.0-0.7) Basophils # (Auto) 0.0x10^3/uL (0.0-0.2) Sodium Level 143mmol/L (136-145) Potassium Level 3.8mmol/L (3.5-5.1) Chloride Level 106mmol/L (98-107) Carbon Dioxide Level 32mmol/L (21-32) Anion Gap 5 (6-14) Blood Urea Nitrogen 29mg/dL (8-26) Creatinine 2.3mg/dL (0.7-1.3) Estimated GFR (Cockcroft-Gault) 28.2 Glucose Level 81mg/dL (70-99) Calcium Level 8.4mg/dL (8.5-10.1) Laboratory Tests Test 10/28/16 11:07 10/28/16 16:54 10/28/16 21:02 10/29/16 03:43 Glucose (Fingerstick) 227mg/dL (70-99) 83mg/dL (70-99) 75mg/dL (70-99) White Blood Count 7.0x10^3/uL (4.0-11.0) Red Blood Count 3.19x10^6/uL (4.30-5.70) Hemoglobin 9.0g/dL (13.0-17.5) Hematocrit 27.0% (39.0-53.0) Mean Corpuscular Volume 85fL (79-100) Mean Corpuscular Hemoglobin 28pg (25-35) Mean Corpuscular Hemoglobin Concent 33g/dL (31-37) Red Cell Distribution Width 14.7% (11.5-14.5) Platelet Count 175x10^3/uL (140-400) Neutrophils (%) (Auto) 77% (31-73) Lymphocytes (%) (Auto) 14% (24-48) Monocytes (%) (Auto) 6% (0-9) Eosinophils (%) (Auto) 3% (0-3) Basophils (%) (Auto) 1% (0-3) Neutrophils # (Auto) 5.4x10^3uL (1.8-7.7) Lymphocytes # (Auto) 0.9x10^3/uL (1.0-4.8) Monocytes # (Auto) 0.4x10^3/uL (0.0-1.1) Eosinophils # (Auto) 0.2x10^3/uL (0.0-0.7) Basophils # (Auto) 0.0x10^3/uL (0.0-0.2) Sodium Level 143mmol/L (136-145) Potassium Level 3.8mmol/L (3.5-5.1) Chloride Level 106mmol/L (98-107) Carbon Dioxide Level 32mmol/L (21-32) Anion Gap 5 (6-14) Blood Urea Nitrogen 29mg/dL (8-26) Creatinine 2.3mg/dL (0.7-1.3) Estimated GFR (Cockcroft-Gault) 28.2 Glucose Level 81mg/dL (70-99) Calcium Level 8.4mg/dL (8.5-10.1) Notes LLE: no edema VAC in place with good seal Assessment and Plan cont VAC avoid ambulation, but he can WB through heel for bathroom, transfers JUWAN WALLACE II, MD Oct 29, 2016 08:27
[2016-10-29] MEDS: DOCUSATE SODIUM 100 MG CAPSULE PO SCH ×2 (09:00→21:00)
[2016-10-29] MEDS: LACTOBACILLUS ACIDOPH & BULGAR 1 TABLET. PO SCH ×3 (09:07→17:28)
[2016-10-29] MEDS: ASPIRIN ENTERIC COATED 81 MG TABLET.DR. PO SCH (09:08)
[2016-10-29] MEDS: MEROPENEM 500 MG in IV NORMAL SALINE 50ML 50 ML IV SCH ×2 (09:09→21:36)
[2016-10-29] MEDS: METOPROLOL TART IMMED RELEASE 25 MG TABLET PO SCH ×2 (09:11→21:37)
[2016-10-29] MEDS: FUROSEMIDE 40 MG/4 ML VIAL IVP SCH ×2 (09:11→14:00)
[2016-10-29] MEDS: APIXABAN 5 MG TABLET. PO SCH ×2 (09:12→21:00)
[2016-10-29] MEDS: INSULIN DETEMIR 300 UNITS/3 ML INSULN.PEN. SQ SCH (09:26)
[2016-10-29 10:40] VITALS: BP 114/39
--- NOTE | 2016-10-29 10:53 | PDOC ---
PROGRESS NOTES Subjective Subjective denies chest pain, breathing easy, no palpitations. Objective Objective Vital Signs Date Time Temp Pulse Resp B/P Pulse Ox O2 Delivery O2 Flow Rate FiO2 10/29/16 09:11 93 142/65 10/29/16 07:03 96 Nasal Cannula 4.0 10/29/16 03:00 97.9 20 97.9 Intake and Output 10/29/16 07:00 Intake Total 360 ml Output Total 900 ml Balance -540 ml Intake Oral 360 ml Output Urine Total 900 ml Physical Exam Abdomen: Normal bowel sounds, Soft Heart: Other (IRR, no s3/s4) Extremities: No cyanosis, Normal pulses General: Alert, Oriented X3, Cooperative, No acute distress Neuro: Normal speech Psych/Mental Status: Mental status NL, Mood NL Assessment Assessment Problems Medical Problems: (1) Acute renal failure Status: Acute (2) Atrial fibrillation with RVR Status: Acute (3) Lactic acidosis Status: Acute (4) Severe sepsis Status: Acute (5) Uncontrolled diabetes mellitus Status: Acute 1. Atrial fibrillation with RVR - rate control with CCB. stroke prophylaxis with eliquis. Normal LV function by echo. MPI with normal LV function. 2. Sepsis/bacteremia/osteo 3. RHETT 4. DM, type II with peripheral neuropathy 5. PAD No further CV recs. follow up outpatient in 4-6 weeks. please call with questions or concerns. Comment Review of Relevant I have reviewed the following items jovan (where applicable) has been applied. Labs Laboratory Tests Test 10/27/16 11:37 10/27/16 16:48 10/28/16 05:09 10/28/16 08:00 Glucose (Fingerstick) 184mg/dL (70-99) 171mg/dL (70-99) 158mg/dL (70-99) Sodium Level 143mmol/L (136-145) Potassium Level 4.0mmol/L (3.5-5.1) Chloride Level 105mmol/L (98-107) Carbon Dioxide Level 29mmol/L (21-32) Anion Gap 9 (6-14) Blood Urea Nitrogen 40mg/dL (8-26) Creatinine 3.1mg/dL (0.7-1.3) Estimated GFR (Cockcroft-Gault) 20.0 Glucose Level 162mg/dL (70-99) Calcium Level 8.4mg/dL (8.5-10.1) Phosphorus Level 3.5mg/dL (2.6-4.7) Albumin 2.1g/dL (3.4-5.0) Test 10/28/16 11:07 10/28/16 16:54 10/28/16 21:02 10/29/16 03:43 Glucose (Fingerstick) 227mg/dL (70-99) 83mg/dL (70-99) 75mg/dL (70-99) White Blood Count 7.0x10^3/uL (4.0-11.0) Red Blood Count 3.19x10^6/uL (4.30-5.70) Hemoglobin 9.0g/dL (13.0-17.5) Hematocrit 27.0% (39.0-53.0) Mean Corpuscular Volume 85fL (79-100) Mean Corpuscular Hemoglobin 28pg (25-35) Mean Corpuscular Hemoglobin Concent 33g/dL (31-37) Red Cell Distribution Width 14.7% (11.5-14.5) Platelet Count 175x10^3/uL (140-400) Neutrophils (%) (Auto) 77% (31-73) Lymphocytes (%) (Auto) 14% (24-48) Monocytes (%) (Auto) 6% (0-9) Eosinophils (%) (Auto) 3% (0-3) Basophils (%) (Auto) 1% (0-3) Neutrophils # (Auto) 5.4x10^3uL (1.8-7.7) Lymphocytes # (Auto) 0.9x10^3/uL (1.0-4.8) Monocytes # (Auto) 0.4x10^3/uL (0.0-1.1) Eosinophils # (Auto) 0.2x10^3/uL (0.0-0.7) Basophils # (Auto) 0.0x10^3/uL (0.0-0.2) Sodium Level 143mmol/L (136-145) Potassium Level 3.8mmol/L (3.5-5.1) Chloride Level 106mmol/L (98-107) Carbon Dioxide Level 32mmol/L (21-32) Anion Gap 5 (6-14) Blood Urea Nitrogen 29mg/dL (8-26) Creatinine 2.3mg/dL (0.7-1.3) Estimated GFR (Cockcroft-Gault) 28.2 Glucose Level 81mg/dL (70-99) Calcium Level 8.4mg/dL (8.5-10.1) Laboratory Tests Test 10/28/16 11:07 10/28/16 16:54 10/28/16 21:02 10/29/16 03:43 Glucose (Fingerstick) 227mg/dL (70-99) 83mg/dL (70-99) 75mg/dL (70-99) White Blood Count 7.0x10^3/uL (4.0-11.0) Red Blood Count 3.19x10^6/uL (4.30-5.70) Hemoglobin 9.0g/dL (13.0-17.5) Hematocrit 27.0% (39.0-53.0) Mean Corpuscular Volume 85fL (79-100) Mean Corpuscular Hemoglobin 28pg (25-35) Mean Corpuscular Hemoglobin Concent 33g/dL (31-37) Red Cell Distribution Width 14.7% (11.5-14.5) Platelet Count 175x10^3/uL (140-400) Neutrophils (%) (Auto) 77% (31-73) Lymphocytes (%) (Auto) 14% (24-48) Monocytes (%) (Auto) 6% (0-9) Eosinophils (%) (Auto) 3% (0-3) Basophils (%) (Auto) 1% (0-3) Neutrophils # (Auto) 5.4x10^3uL (1.8-7.7) Lymphocytes # (Auto) 0.9x10^3/uL (1.0-4.8) Monocytes # (Auto) 0.4x10^3/uL (0.0-1.1) Eosinophils # (Auto) 0.2x10^3/uL (0.0-0.7) Basophils # (Auto) 0.0x10^3/uL (0.0-0.2) Sodium Level 143mmol/L (136-145) Potassium Level 3.8mmol/L (3.5-5.1) Chloride Level 106mmol/L (98-107) Carbon Dioxide Level 32mmol/L (21-32) Anion Gap 5 (6-14) Blood Urea Nitrogen 29mg/dL (8-26) Creatinine 2.3mg/dL (0.7-1.3) Estimated GFR (Cockcroft-Gault) 28.2 Glucose Level 81mg/dL (70-99) Calcium Level 8.4mg/dL (8.5-10.1) Microbiology 10/25/16 Blood Culture - Preliminary, Resulted NO GROWTH AFTER 3 DAYS 10/21/16 Urine Culture - Final, Complete 10/21/16 Urine Culture Result 1 (HERBERT) - Final, Complete 10/22/16 Gram Stain - Final, Complete Medications Current Medications Diltiazem HCl 20 mg 20 mg 1X ONCE IVP Last administered on 10/20/16 13:35; Start 10/20/16 at 13:30; Stop 10/20/16 at 13:31; Status DC Diltiazem HCl 125 mg/Dextrose 125 ml @ 10 mls/hr 1X ONCE IV Last administered on 10/20/16 13:49; Start 10/20/16 at 13:30; Stop 10/20/16 at 19:37; Status DC Sodium Chloride (Iv Sodium Chloride 0.9% 1000ml Bag) 1,000 ml @ 100 mls/hr Q10H IV Last administered on 10/20/16 13:45; Start 10/20/16 at 13:30; Stop at 23:29; Status DC Diltiazem HCl (Cardizem) 20 mg 1X ONCE IVP Last administered on 10/20/16 14:16 ; Start 10/20/16 at 14:00; Stop 10/20/16 at 14:01; Status DC Vancomycin HCl (Vanco Per Pharmacy) 1 each PRN DAILY PRN MC SEE COMMENTS Last administered on 10/20/16 16:49; Start 10/20/16 at 14:45; Stop 10/21/16 at 07:42; Status DC Piperacillin Sod/ Tazobactam Sod 1 each 1 each PRN DAILY PRN MC SEE COMMENTS; Start 10/20/16 at 14:45; Stop 10/21/16 at 07:49; Status DC Vancomycin HCl 2 gm/Sodium Chloride 500 ml @ 250 mls/hr 1X ONCE IV Last administered on 10/20/16 15:45; Start 10/20/16 at 15:00; Stop 10/20/16 at 16:59; Status DC Piperacillin Sod/ Tazobactam Sod/ Sodium Chloride (Zosyn/Iv Sodium Chloride 0.9 % 50ml) 50 ml @ 100 mls/hr 1X ONCE IV Last administered on 10/20/16 15:04; Start 10/20/16 at 15:00; Stop 10/20/16 at 15:29; Status DC Ondansetron HCl (Zofran) 4 mg PRN Q8HRS PRN IV NAUSEA/VOMITING; Start 10/20/16 at 15:00; Stop 10/20/16 at 15:16; Status DC Fentanyl Citrate 50 mcg 50 mcg PRN Q2HR PRN IV PAIN; Start 10/20/16 at 15:00; Stop 10/21/16 at 14:59; Status DC Sodium Chloride (Iv Sodium Chloride 0.9% 1000ml Bag) 1,000 ml @ 100 mls/hr Q10H IV Last administered on 10/21/16 11:30; Start 10/20/16 at 15:30; Stop at 15:29; Status DC Acetaminophen (Tylenol) 650 mg PRN Q4HRS PRN PO FEVER; Start 10/20/16 at 15:00; Stop 10/21/16 at 14:59; Status DC Ondansetron HCl (Zofran) 4 mg PRN Q6HRS PRN IV NAUSEA/VOMITING; Start 10/20/16 at 15:12 Insulin Aspart (Novolog) 0-9 UNITS TIDWMEALS SQ Last administered on 10/28/16 11:33; Start 10/20/16 at 17:00 Dextrose 12.5 gm PRN Q15MIN PRN IV SEE COMMENTS Last administered on 10/26/16 23:42; Start 10/20/16 at 15:15 Docusate Sodium (Colace) 100 mg BID PO Last administered on 10/26/16 21:17; Start 10/20/16 at 21:00 Glimepiride (Amaryl) 2 mg BID PO ; Start 10/20/16 at 21:00; Status UNV Acetaminophen/ Hydrocodone Bitart (Lortab 7.5/325) 1 tab PRN Q3HRS PRN PO PAIN Last administered on 10/26/16 15:27; Start 10/20/16 at 15:15 Glimepiride (Amaryl) 4 mg BIDWMEALS PO Last administered on 10/20/16 17:32; Start 10/20/16 at 17:00; Stop 10/21/16 at 14:52; Status DC Insulin Detemir (Levemir) 30 units QHS SQ Last administered on 10/20/16 21:03; Start 10/20/16 at 21:00; Stop 10/21/16 at 14:52; Status DC Ondansetron HCl 4 mg 4 mg Q8HRS PO Last administered on 10/21/16 06:17; Start 10/20/16 at 22:00; Stop 10/21/16 at 17:24; Status DC Sodium Chloride 500 ml @ 500 mls/hr 1X ONCE IV ; Start 10/20/16 at 15:30; Stop 10/20/16 at 16:29; Status DC Piperacillin Sod/ Tazobactam Sod 2.25 gm/Sodium Chloride 50 ml @ 100 mls/hr Q6HRS IV Last administered on 10/27/16 06:03; Start 10/21/16 at 00:00; Stop at 07:43; Status DC Vancomycin HCl/ Sodium Chloride (Iv Sodium Chloride 0.9% 250ml) 250 ml @ 167 mls/hr Q24H IV ; Start 10/21/16 at 16:00; Stop 10/21/16 at 16:00; Status DC Vancomycin HCl 1 each 1 each 1X ONCE MC ; Start 10/22/16 at 15:30; Stop 10/22/16 at 15:31; Status Cancel Dopamine HCl/ Dextrose 250 ml @ 13.183 mls/ hr CONT PRN IV SEE I/O RECORD Last administered on 10/20/16 20:38; Start 10/20/16 at 19:30; Stop 10/28/16 at 15 :26; Status DC Digoxin (Lanoxin) 250 mcg 1X ONCE IV Last administered on 10/20/16 21:02; Start 10/20/16 at 20:45; Stop 10/20/16 at 20:46; Status DC Digoxin (Lanoxin) 250 mcg 1X ONCE IV Last administered on 10/21/16 01:48; Start 10/21/16 at 02:00; Stop 10/21/16 at 02:01; Status DC Digoxin 250 mcg 250 mcg 1X ONCE IV Last administered on 10/21/16 04:12; Start 10/21/16 at 04:15; Stop 10/21/16 at 04:16; Status DC Diltiazem HCl 125 mg/Dextrose 125 ml @ 0 mls/hr CONT PRN IV SEE I/O RECORD Last administered on 10/21/16 23:03; Start 10/21/16 at 04:15; Stop 10/22/16 at 09: 44; Status DC Linezolid 300 ml @ 300 mls/hr Q12HR IV Last administered on 10/22/16 20:18; Start 10/21/16 at 09:00; Stop 10/23/16 at 07:26; Status DC Magnesium Sulfate/ Dextrose 50 ml @ 25 mls/hr PRN DAILY PRN IV for Mag < 1.7 on am labs Last administered on 10/22/16 15:15; Start 10/21/16 at 09:45 Albumin Human (Plasmanate) 500 ml @ 125 mls/hr 1X ONCE IV Last administered on 10/21/16 10:25; Start 10/21/16 at 09:45; Stop 10/21/16 at 13:44; Status DC Ondansetron HCl (Zofran) 4 mg PRN Q6HRS PRN IV Nausea; Start 10/21/16 at 10:00; Stop 10/22/16 at 09:59; Status DC Fentanyl Citrate (Fentanyl 2ml Vial) 25 mcg PRN Q5MIN PRN IV MILD PAIN; Start 10/21/16 at 10:00; Stop 10/22/16 at 09:59; Status DC Fentanyl Citrate (Fentanyl 2ml Vial) 50 mcg PRN Q5MIN PRN IV MODERATE PAIN; Start 10/21/16 at 10:00; Stop 10/22/16 at 09:59; Status DC Morphine Sulfate 1 mg 1 mg PRN Q10MIN PRN IV SEVERE PAIN; Start 10/21/16 at 10: 00; Stop 10/22/16 at 09:59; Status DC Lactated Ringer's (Iv Lactated Ringers) 1,000 ml @ 30 mls/hr Q24H IV ; Start at 09:50; Stop 10/21/16 at 21:49; Status DC Lidocaine HCl 2 ml 1X PRN PRN ID IV START; Start 10/21/16 at 10:00; Stop at 09:59; Status DC Hydromorphone HCl (Dilaudid) 0.5 mg PRN Q10MIN PRN IV SEV PAIN,Second choice; Start 10/21/16 at 10:00; Stop 10/22/16 at 09:59; Status DC Prochlorperazine Edisylate 5 mg 5 mg PACU PRN PRN IV NAUSEA; Start 10/21/16 at 10:00; Stop 10/22/16 at 09:59; Status DC Sodium Chloride (Iv Sodium Chloride 0.9% 500ml Bag) 500 ml @ 0 mls/hr PRN QID PRN IV UO< 30cc/hr over previous 6hrs; Start 10/21/16 at 10:15; Stop 10/21/16 at 17:27; Status DC Ondansetron HCl (Zofran) 4 mg PRN Q6HRS PRN IV Nausea; Start 10/21/16 at 11:30; Stop 10/22/16 at 11:29; Status DC Morphine Sulfate 1 mg 1 mg PRN Q10MIN PRN IV SEVERE PAIN; Start 10/21/16 at 11: 30; Stop 10/22/16 at 11:29; Status DC Lactated Ringer's (Iv Lactated Ringers) 1,000 ml @ 0 mls/hr Q0M IV ; Start 10/21 at 11:19; Stop 10/21/16 at 23:18; Status DC Lidocaine HCl 2 ml 1X PRN PRN ID IV START; Start 10/21/16 at 11:30; Stop at 11:29; Status DC Hydromorphone HCl (Dilaudid) 0.5 mg PRN Q10MIN PRN IV SEV PAIN,Second choice; Start 10/21/16 at 11:30; Stop 10/22/16 at 11:29; Status DC Prochlorperazine Edisylate (Compazine) 5 mg PACU PRN PRN IV NAUSEA; Start at 11:30; Stop 10/22/16 at 11:29; Status DC Atorvastatin Calcium (Lipitor) 20 mg QHS PO Last administered on 10/28/16 21: 23; Start 10/21/16 at 21:00 Aspirin (Ecotrin) 81 mg DAILYWBKFT PO Last administered on 10/29/16 09:08; Start 10/21/16 at 12:00 Ondansetron HCl (Zofran) 4 mg PRN Q6HRS PRN IV Nausea; Start 10/22/16 at 07:00; Stop 10/23/16 at 06:59; Status DC Morphine Sulfate 1 mg 1 mg PRN Q10MIN PRN IV SEVERE PAIN; Start 10/22/16 at 07: 00; Stop 10/23/16 at 06:59; Status DC Lactated Ringer's (Iv Lactated Ringers) 1,000 ml @ 30 mls/hr Q24H IV ; Start at 07:00; Stop 10/22/16 at 15:07; Status DC Lidocaine HCl 2 ml 1X PRN PRN ID IV START; Start 10/22/16 at 07:00; Stop at 06:59; Status DC Hydromorphone HCl (Dilaudid) 0.5 mg PRN Q10MIN PRN IV SEVERE PAIN, Second choice; Start 10/22/16 at 07:00; Stop 10/23/16 at 06:59; Status DC Prochlorperazine Edisylate (Compazine) 5 mg PACU PRN PRN IV NAUSEA; Start at 07:00; Stop 10/23/16 at 06:59; Status DC Aspirin (Ecotrin) 81 mg DAILYWBKFT PO ; Start 10/22/16 at 08:00; Status UNV Insulin Detemir (Levemir) 20 units QHS SQ ; Start 10/21/16 at 21:00; Stop at 08:29; Status DC Ondansetron HCl 4 mg 4 mg PRN Q8HRS PRN PO NAUSEA; Start 10/22/16 at 14:00 Sodium Chloride 1,000 ml @ 175 mls/hr Q5H43M IV Last administered on 05:30; Start 10/21/16 at 18:00; Stop 10/23/16 at 07:20; Status DC Dextrose 1,000 ml @ 75 mls/hr [id number] IV Last administered on 10/22/16 04:54; Start 10/22/16 at 04:45; Stop 10/22/16 at 15:05; Status DC Bupivacaine HCl (Sensorcaine Mpf 0.5%) 30 ml STK-MED ONCE .ROUTE ; Start at 06:45; Stop 10/22/16 at 06:46; Status DC Lidocaine HCl 20 ml 20 ml STK-MED ONCE .ROUTE ; Start 10/22/16 at 06:46; Stop 10/22/16 at 06:47; Status DC Propofol (Diprivan) 20 ml @ As Directed STK-MED ONCE IV ; Start 10/22/16 at 08:02 ; Stop 10/22/16 at 08:03; Status DC Lidocaine HCl 100 mg STK-MED ONCE .ROUTE ; Start 10/22/16 at 08:02; Stop 10/22/16 at 08:03; Status DC Ondansetron HCl (Zofran) 4 mg STK-MED ONCE .ROUTE ; Start 10/22/16 at 08:31; Stop 10/22/16 at 08:32; Status DC Phenylephrine HCl 1 mg STK-MED ONCE IV ; Start 10/22/16 at 08:31; Stop 10/22/16 at 08:32; Status DC Dexamethasone Sodium Phosphate (Decadron) 20 mg STK-MED ONCE .ROUTE ; Start 10/22 at 08:48; Stop 10/22/16 at 08:49; Status DC Sevoflurane (Ultane) 30 ml STK-MED ONCE IH ; Start 10/22/16 at 08:48; Stop at 08:49; Status DC Diltiazem HCl (Cardizem) 30 mg Q6HRS PO Last administered on 10/27/16 11:27; Start 10/22/16 at 10:00; Stop 10/27/16 at 12:31; Status DC Metoprolol Tartrate 5 mg 5 mg PRN Q6HRS PRN IVP ELEVATED BP, SEE COMMENTS; Start 10/22/16 at 09:45 Albumin Human (Plasmanate) 500 ml @ 125 mls/hr 1X ONCE IV Last administered on 10/22/16 11:20; Start 10/22/16 at 09:45; Stop 10/22/16 at 13:44; Status DC Info (Anti-Coagulation Monitoring By Pharmacy) 1 each PRN DAILY PRN MC SEE COMMENTS; Start 10/22/16 at 15:15; Status UNV Heparin Sodium (Porcine) 5,000 unit Q12HR SQ Last administered on 10/28/16 11: 08; Start 10/22/16 at 21:00; Stop 10/28/16 at 16:02; Status DC Loperamide HCl (Imodium) 2 mg PRN Q15MIN PRN PO DIARRHEA Last administered on 09:27; Start 10/22/16 at 20:00 Insulin Human Regular (Novolin R Vial) 10 unit 1X ONCE IV Last administered on 10/22/16 23:52; Start 10/22/16 at 01:00; Stop 10/22/16 at 23:46; Status DC Insulin Detemir (Levemir) 10 units 1X ONCE SQ Last administered on 10/22/16 23 :53; Start 10/22/16 at 23:45; Stop 10/22/16 at 23:46; Status DC Insulin Human Regular 10 unit 10 unit 1X ONCE IV Last administered on 00:09; Start 10/23/16 at 00:00; Stop 10/23/16 at 00:01; Status DC Sodium Chloride 38.75 meq/Sodium Bicarbonate 75 meq/Sterile Water 1,084.6875 ml @ 150 mls/hr CONT PRN IV SEE I/O RECORD Last administered on 10/24/16 07:12; Start 10/23/16 at 07:30 Albumin Human (Albuminar) 100 ml @ 100 mls/hr TID IV Last administered on 10/24 21:23; Start 10/23/16 at 09:00; Stop 10/24/16 at 21:59; Status DC Heparin Sodium (Porcine) 10,000 unit STK-MED ONCE .ROUTE ; Start 10/23/16 at 07: 55; Stop 10/23/16 at 07:56; Status DC Lidocaine/Sodium Bicarbonate 20 ml 20 ml STK-MED ONCE IJ ; Start 10/23/16 at 07: 55; Stop 10/23/16 at 07:56; Status DC Heparin Sodium/ Sodium Chloride 500 ml @ As Directed STK-MED ONCE .ROUTE ; Start 10/23/16 at 07:55; Stop 10/23/16 at 07:56; Status DC Insulin Detemir (Levemir) 20 units DAILY08 SQ ; Start 10/23/16 at 08:00; Stop at 08:01; Status DC Insulin Aspart (Novolog) 10 units TIDAC SQ Last administered on 10/23/16 17:46 ; Start 10/23/16 at 11:30; Stop 10/24/16 at 11:12; Status DC Insulin Detemir (Levemir) 30 units DAILY08 SQ Last administered on 10/23/16 09 :55; Start 10/23/16 at 08:30; Stop 10/24/16 at 11:12; Status DC Lidocaine/Sodium Bicarbonate (Buffered Lidocaine 1%) 3 ml 1X ONCE IJ Last administered on 10/23/16 08:48; Start 10/23/16 at 08:30; Stop 10/23/16 at 08:31 ; Status DC Heparin Sodium/ Sodium Chloride 60 unit 1X ONCE IV Last administered on 08:48; Start 10/23/16 at 08:30; Stop 10/23/16 at 08:31; Status DC Heparin Sodium (Porcine) 2,500 unit 1X ONCE INT CAT Last administered on 08:48; Start 10/23/16 at 08:30; Stop 10/23/16 at 08:31; Status DC Albuterol/ Ipratropium (Duoneb) 3 ml RTQID NEB Last administered on 10/29/16 07:01; Start 10/24/16 at 12:00 Albuterol/ Ipratropium (Duoneb) 3 ml 1X ONCE NEB Last administered on 09:11; Start 10/24/16 at 09:00; Stop 10/24/16 at 09:01; Status DC Budesonide (Pulmicort) 0.5 mg RTBID NEB Last administered on 10/29/16 07:01; Start 10/24/16 at 10:00 Insulin Aspart (Novolog) 7 units TIDAC SQ Last administered on 10/29/16 09:26 ; Start 10/24/16 at 11:30 Insulin Detemir (Levemir) 20 units DAILY08 SQ Last administered on 10/29/16 09 :26; Start 10/25/16 at 08:00 Potassium Chloride 20 meq 20 meq 1X ONCE PO Last administered on 10/24/16 18: 28; Start 10/24/16 at 12:00; Stop 10/24/16 at 12:01; Status DC Sodium Chloride 1,000 ml @ 1,000 mls/hr Q1H PRN IV hypotension; Start 10/24/16 at 13:00; Stop 10/24/16 at 18:59; Status DC Albumin Human (Albuminar) 200 ml @ 200 mls/hr 1X PRN PRN IV Hypotension; Start 10/24/16 at 14:00; Stop 10/24/16 at 19:59; Status DC Acetaminophen (Tylenol) 500 mg 1X PRN PRN PO MILD PAIN / TEMP; Start 10/24/16 at 14:00; Stop 10/25/16 at 13:59; Status DC Diphenhydramine HCl (Benadryl) 25 mg 1X PRN PRN IV ITCHING; Start 10/24/16 at 14:00; Stop 10/25/16 at 13:59; Status DC Diphenhydramine HCl (Benadryl) 25 mg 1X PRN PRN IV ITCHING; Start 10/24/16 at 14:00; Stop 10/25/16 at 13:59; Status DC Info (PHARMACY MONITORING -- do not chart) 1 each PRN DAILY PRN MC SEE COMMENTS ; Start 10/24/16 at 14:00; Stop 10/25/16 at 13:16; Status DC Potassium Chloride 20 meq 20 meq 1X ONCE PO ; Start 10/24/16 at 18:30; Stop 07/02 at 18:31; Status DC Amino Acids/ Electrolytes (Clinimix E 2.75%-5% Solution) 1,000 ml @ 55 mls/hr [id number] IV Last administered on 10/27/16 00:52; Start 10/25/16 at 12:00; Stop 10/27/16 at 14:10; Status DC Hydralazine HCl 10 mg 10 mg PRN Q4HRS PRN IVP ELEVATED BP, SEE COMMENTS Last administered on 3/14/17at 06:05; Start 10/25/16 at 12:45 Sodium Chloride 1,000 ml @ 1,000 mls/hr Q1H PRN IV hypotension; Start 10/25/16 at 13:07; Stop 10/25/16 at 19:06; Status DC Albumin Human (Albuminar) 200 ml @ 200 mls/hr 1X PRN PRN IV Hypotension Last administered on 10/25/16 14:30; Start 10/25/16 at 13:15; Stop 10/25/16 at 19:14 ; Status DC Acetaminophen (Tylenol) 500 mg 1X PRN PRN PO MILD PAIN / TEMP; Start 10/25/16 at 13:15; Stop 10/26/16 at 13:14; Status DC Diphenhydramine HCl (Benadryl) 25 mg 1X PRN PRN IV ITCHING; Start 10/25/16 at 13:15; Stop 10/26/16 at 13:14; Status DC Diphenhydramine HCl (Benadryl) 25 mg 1X PRN PRN IV ITCHING; Start 10/25/16 at 13:15; Stop 10/26/16 at 13:14; Status DC Info (PHARMACY MONITORING -- do not chart) 1 each PRN DAILY PRN MC SEE COMMENTS ; Start 10/25/16 at 13:15 Famotidine (Pepcid) 20 mg QHS IVP Last administered on 10/26/16 21:17; Start 10/26/16 at 21:00; Stop 10/27/16 at 11:20; Status DC Furosemide 40 mg 40 mg [id number] IVP Last administered on 10/29/16 09:11; Start at 12:00 Sodium Chloride 1,000 ml @ 1,000 mls/hr Q1H PRN IV hypotension; Start 10/26/16 at 13:55; Stop 10/26/16 at 19:54; Status DC Sodium Chloride (Iv Sodium Chloride 0.9% 1000ml Bag) 1,000 ml @ 400 mls/hr Q2H30M PRN IV PATENCY; Start 10/26/16 at 13:55; Stop 10/27/16 at 01:54; Status DC Info 1 each 1 each PRN DAILY PRN MC SEE COMMENTS; Start 10/26/16 at 14:00; Status UNV Meropenem/Sodium Chloride (Merrem/Iv Sodium Chloride 0.9% 50ml) 50 ml @ 100 mls /hr Q6HRS IV Last administered on 10/28/16 06:00; Start 10/27/16 at 12:00; Stop 10/28/16 at 09:22; Status DC Metoprolol Tartrate (Lopressor) 25 mg BID PO Last administered on 10/29/16 09: 11; Start 10/27/16 at 12:00 Famotidine (Pepcid) 20 mg QHS PO Last administered on 10/28/16 21:23; Start at 21:00 Diltiazem HCl (Cardizem 24hr Cd) 180 mg [id number] PO Last administered on 17:11; Start 10/27/16 at 17:00 Regadenoson (Lexiscan) 0.4 mg 1X ONCE IV Last administered on 10/28/16 09:18 ; Start 10/28/16 at 07:45; Stop 10/28/16 at 07:46; Status DC Lactobacillus Acidophilus 1 tab 1 tab TIDWMEALS PO Last administered on 09:07; Start 10/28/16 at 12:00 Meropenem 500 mg/ Sodium Chloride 50 ml @ 100 mls/hr Q12HR IV Last administered on 10/29/16 09:09; Start 10/28/16 at 21:00 Sodium Chloride 1,000 ml @ 1,000 mls/hr Q1H PRN IV hypotension; Start 10/28/16 at 09:34; Stop 10/28/16 at 15:33; Status DC Albumin Human (Albuminar) 200 ml @ 200 mls/hr 1X PRN PRN IV Hypotension; Start 10/28/16 at 09:45; Stop 10/28/16 at 15:44; Status DC Acetaminophen (Tylenol) 500 mg 1X PRN PRN PO MILD PAIN / TEMP; Start 10/28/16 at 09:45; Stop 10/28/16 at 16:02; Status DC Diphenhydramine HCl (Benadryl) 25 mg 1X PRN PRN IV ITCHING; Start 10/28/16 at 09:45; Stop 10/28/16 at 16:02; Status DC Diphenhydramine HCl (Benadryl) 25 mg 1X PRN PRN IV ITCHING; Start 10/28/16 at 09:45; Stop 10/28/16 at 16:02; Status DC Sodium Chloride (Normal Saline Flush) 10 ml 1X PRN PRN IV AP catheter pack; Start 10/28/16 at 09:45; Stop 10/28/16 at 16:02; Status DC Sodium Chloride (Normal Saline Flush) 10 ml 1X PRN PRN IV [place] [employer] catheter pack; Start 10/28/16 at 09:45; Stop 10/28/16 at 16:02; Status DC Labetalol HCl 10 mg 10 mg PRN Q1HR PRN IVP SBP > 180; Start 10/28/16 at 09:45; Stop 10/28/16 at 16:02; Status DC Sodium Chloride (Iv Sodium Chloride 0.9% 1000ml Bag) 1,000 ml @ 400 mls/hr Q2H30M PRN IV PATENCY; Start 10/28/16 at 09:34; Stop 10/28/16 at 21:33; Status DC Info 1 each 1 each PRN DAILY PRN MC SEE COMMENTS; Start 10/28/16 at 09:45; Status UNV Sodium Chloride (Iv Sodium Chloride 0.9% 1000ml Bag) 1,000 ml @ 1,000 mls/hr Q1H PRN IV hypotension; Start 10/28/16 at 12:47; Stop 10/28/16 at 18:46; Status UNV Diphenhydramine HCl (Benadryl) 25 mg 1X PRN PRN IV ITCHING; Start 10/28/16 at 13:00; Stop 10/29/16 at 12:59; Status UNV Diphenhydramine HCl (Benadryl) 25 mg 1X PRN PRN IV ITCHING; Start 10/28/16 at 13:00; Stop 10/29/16 at 12:59; Status UNV Sodium Chloride (Normal Saline Flush) 10 ml 1X PRN PRN IV AP catheter pack; Start 10/28/16 at 13:00; Stop 10/29/16 at 12:59; Status UNV Sodium Chloride 10 ml 10 ml 1X PRN PRN IV [place] [employer] [employer] catheter pack; Start 10/28/16 at 13:00; Stop 10/29/16 at 12:59; Status UNV Sodium Chloride (Iv Sodium Chloride 0.9% 1000ml Bag) 1,000 ml @ 400 mls/hr Q2H30M PRN IV PATENCY; Start 10/28/16 at 12:47; Stop 10/29/16 at 00:46; Status UNV Info (PHARMACY MONITORING -- do not chart) 1 each PRN DAILY PRN MC SEE COMMENTS ; Start 10/28/16 at 13:00; Status UNV Apixaban (Eliquis) 5 mg BID PO Last administered on 10/29/16t 09:12; Start at 21:00 Active Scripts Active Reported Zofran Odt (Ondansetron) 8 Mg Tab.rapdis 1 Tab PO Q8HRS Colace (Docusate Sodium) 100 Mg Capsule 1 Cap PO BID Hydrocodone-Apap 7.5-325 (Hydrocodone Bit/Acetaminophen) 1 Each Tablet 1 Tab PO Q3HRS PRN Glimepiride 4 Mg Tablet 1 Tab PO BID Glimepiride 2 Mg Tablet 1 Tab PO BID Levemir (Insulin Detemir) 100 Unit/1 Ml Vial 30 Unit SQ HS Vitals/I & O Vital Sign - Last 24 Hours 10/28/16 10/28/16 10/28/16 10/28/16 11:00 11:13 15:00 15:49 Temp 97.8 98.0 97.8 98.0 Pulse 88 89 Resp 16 16 B/P 129/60 144/89 Pulse Ox 5 99 99 98 O2 Delivery Simple Mask Simple Mask Simple Mask Venturi Mask O2 Flow Rate 7.0 12.0 10/28/16 10/28/16 10/28/16 10/28/16 17:11 19:00 19:40 19:45 Temp 97.7 97.7 Pulse 93 101 Resp 16 B/P 148/70 136/58 Pulse Ox 97 100 100 O2 Delivery Nasal Cannula Nasal Cannula Nasal Cannula O2 Flow Rate 4.0 9.0 4.0 10/28/16 10/28/16 10/28/16 10/29/16 20:00 21:24 23:41 03:00 Temp 98.1 97.9 98.1 97.9 Pulse 101 79 116 Resp 20 20 B/P 136/58 126/47 143/56 Pulse Ox 94 96 O2 Delivery Nasal Cannula Nasal Cannula Nasal Cannula O2 Flow Rate 4.0 4.0 4.0 10/29/16 10/29/16 07:03 09:11 Pulse 93 B/P 142/65 Pulse Ox 96 O2 Delivery Nasal Cannula O2 Flow Rate 4.0 Intake and Output 10/28/16 10/28/16 10/29/16 15:00 23:00 07:00 Intake Total 360 ml Output Total 900 ml Balance 360 ml -900 ml [employer] Oct 29, 2016 10:53
--- NOTE | 2016-10-29 11:11 | PDOC ---
PULMONARY PROGRESS NOTES Subjective Feels better on N/C 02 Comments Vitals Vital Signs Date Time Temp Pulse Resp B/P Pulse Ox O2 Delivery O2 Flow Rate FiO2 10/29/16 09:11 93 142/65 10/29/16 07:03 96 Nasal Cannula 4.0 10/29/16 03:00 97.9 20 97.9 General: Alert Lungs: Clear Cardiovascular: S1, S2 Abdomen: Soft, Non-tender Neuro Exam: Alert, Oriented Extremities: Other (1+edema) Skin: Warm Labs Laboratory Tests Test 10/27/16 11:37 10/27/16 16:48 10/28/16 05:09 10/28/16 08:00 Glucose (Fingerstick) 184mg/dL (70-99) 171mg/dL (70-99) 158mg/dL (70-99) Sodium Level 143mmol/L (136-145) Potassium Level 4.0mmol/L (3.5-5.1) Chloride Level 105mmol/L (98-107) Carbon Dioxide Level 29mmol/L (21-32) Anion Gap 9 (6-14) Blood Urea Nitrogen 40mg/dL (8-26) Creatinine 3.1mg/dL (0.7-1.3) Estimated GFR (Cockcroft-Gault) 20.0 Glucose Level 162mg/dL (70-99) Calcium Level 8.4mg/dL (8.5-10.1) Phosphorus Level 3.5mg/dL (2.6-4.7) Albumin 2.1g/dL (3.4-5.0) Test 10/28/16 11:07 10/28/16 16:54 10/28/16 21:02 10/29/16 03:43 Glucose (Fingerstick) 227mg/dL (70-99) 83mg/dL (70-99) 75mg/dL (70-99) White Blood Count 7.0x10^3/uL (4.0-11.0) Red Blood Count 3.19x10^6/uL (4.30-5.70) Hemoglobin 9.0g/dL (13.0-17.5) Hematocrit 27.0% (39.0-53.0) Mean Corpuscular Volume 85fL (79-100) Mean Corpuscular Hemoglobin 28pg (25-35) Mean Corpuscular Hemoglobin Concent 33g/dL (31-37) Red Cell Distribution Width 14.7% (11.5-14.5) Platelet Count 175x10^3/uL (140-400) Neutrophils (%) (Auto) 77% (31-73) Lymphocytes (%) (Auto) 14% (24-48) Monocytes (%) (Auto) 6% (0-9) Eosinophils (%) (Auto) 3% (0-3) Basophils (%) (Auto) 1% (0-3) Neutrophils # (Auto) 5.4x10^3uL (1.8-7.7) Lymphocytes # (Auto) 0.9x10^3/uL (1.0-4.8) Monocytes # (Auto) 0.4x10^3/uL (0.0-1.1) Eosinophils # (Auto) 0.2x10^3/uL (0.0-0.7) Basophils # (Auto) 0.0x10^3/uL (0.0-0.2) Sodium Level 143mmol/L (136-145) Potassium Level 3.8mmol/L (3.5-5.1) Chloride Level 106mmol/L (98-107) Carbon Dioxide Level 32mmol/L (21-32) Anion Gap 5 (6-14) Blood Urea Nitrogen 29mg/dL (8-26) Creatinine 2.3mg/dL (0.7-1.3) Estimated GFR (Cockcroft-Gault) 28.2 Glucose Level 81mg/dL (70-99) Calcium Level 8.4mg/dL (8.5-10.1) Test 10/29/16 07:58 Glucose (Fingerstick) 74mg/dL (70-99) Laboratory Tests Test 10/28/16 16:54 10/28/16 21:02 10/29/16 03:43 10/29/16 07:58 Glucose (Fingerstick) 83mg/dL (70-99) 75mg/dL (70-99) 74mg/dL (70-99) White Blood Count 7.0x10^3/uL (4.0-11.0) Red Blood Count 3.19x10^6/uL (4.30-5.70) Hemoglobin 9.0g/dL (13.0-17.5) Hematocrit 27.0% (39.0-53.0) Mean Corpuscular Volume 85fL (79-100) Mean Corpuscular Hemoglobin 28pg (25-35) Mean Corpuscular Hemoglobin Concent 33g/dL (31-37) Red Cell Distribution Width 14.7% (11.5-14.5) Platelet Count 175x10^3/uL (140-400) Neutrophils (%) (Auto) 77% (31-73) Lymphocytes (%) (Auto) 14% (24-48) Monocytes (%) (Auto) 6% (0-9) Eosinophils (%) (Auto) 3% (0-3) Basophils (%) (Auto) 1% (0-3) Neutrophils # (Auto) 5.4x10^3uL (1.8-7.7) Lymphocytes # (Auto) 0.9x10^3/uL (1.0-4.8) Monocytes # (Auto) 0.4x10^3/uL (0.0-1.1) Eosinophils # (Auto) 0.2x10^3/uL (0.0-0.7) Basophils # (Auto) 0.0x10^3/uL (0.0-0.2) Sodium Level 143mmol/L (136-145) Potassium Level 3.8mmol/L (3.5-5.1) Chloride Level 106mmol/L (98-107) Carbon Dioxide Level 32mmol/L (21-32) Anion Gap 5 (6-14) Blood Urea Nitrogen 29mg/dL (8-26) Creatinine 2.3mg/dL (0.7-1.3) Estimated GFR (Cockcroft-Gault) 28.2 Glucose Level 81mg/dL (70-99) Calcium Level 8.4mg/dL (8.5-10.1) Medications Active Scripts Medications Dose Route/Sig Days Date Category Zofran Odt (Ondansetron) 8 Mg Tab.rapdis 1 Tab PO Q8HRS 09/30/16 Reported Colace (Docusate Sodium) 100 Mg Capsule 1 Cap PO BID 09/30/16 Reported Hydrocodone-Apap 7.5-325 (Hydrocodone Bit/Acetaminophen) 1 Each Tablet 1 Tab PO Q3HRS PRN 09/30/16 Reported Glimepiride 4 Mg Tablet 1 Tab PO BID 09/29/16 Reported Glimepiride 2 Mg Tablet 1 Tab PO BID 09/29/16 Reported Levemir (Insulin Detemir) 100 Unit/1 Ml Vial 30 Unit SQ HS 06/29/14 Reported Comments cxr reviewed improved Impression . 1. Acute hypoxic respiratory failure sec to heart failure, S/P BIPAP and 100% 02 2. Clinically, less likely pneumonia, possible lung injury 3. Underlying chronic obstructive pulmonary disease. 4. Abnormal chest x-ray with diffuse interstitial infiltrates, more compatible with pulmonary edema 5. Acute kidney injury on chronic kidney disease. s/p emergent dialysis. 6. Hypoglycemia, now being corrected. 7. Normal ejection fraction on recent echo. Plan . resp status is improving daily 1. REPEAT CXR IMPROVING 2. PRN BIPAP 3. Titrated 02 4. HD PER NEPHRO 5. Continue bronchodilators. 6. Continue antibiotics. 7. Monitor blood sugars. MANUELITO MUÑOZ MD Oct 29, 2016 11:11
--- NOTE | 2016-10-29 11:58 | PDOC ---
Renal-Progress Notes Subjective Notes Notes NONE History of Present Illness Hx of present illness BETTER Vitals Vitals Vital Signs Date Time Temp Pulse Resp B/P Pulse Ox O2 Delivery O2 Flow Rate FiO2 10/29/16 10:40 97.9 81 20 114/39 95 Nasal Cannula 4.0 97.9 Weight Weight [ ] I.O. Intake and Output Intake and Output 10/29/16 07:00 Intake Total 360 ml Output Total 900 ml Balance -540 ml Intake Oral 360 ml Output Urine Total 900 ml Labs Labs Laboratory Tests Test 10/28/16 16:54 10/28/16 21:02 10/29/16 03:43 10/29/16 07:58 Glucose (Fingerstick) 83mg/dL (70-99) 75mg/dL (70-99) 74mg/dL (70-99) White Blood Count 7.0x10^3/uL (4.0-11.0) Red Blood Count 3.19x10^6/uL (4.30-5.70) Hemoglobin 9.0g/dL (13.0-17.5) Hematocrit 27.0% (39.0-53.0) Mean Corpuscular Volume 85fL (79-100) Mean Corpuscular Hemoglobin 28pg (25-35) Mean Corpuscular Hemoglobin Concent 33g/dL (31-37) Red Cell Distribution Width 14.7% (11.5-14.5) Platelet Count 175x10^3/uL (140-400) Neutrophils (%) (Auto) 77% (31-73) Lymphocytes (%) (Auto) 14% (24-48) Monocytes (%) (Auto) 6% (0-9) Eosinophils (%) (Auto) 3% (0-3) Basophils (%) (Auto) 1% (0-3) Neutrophils # (Auto) 5.4x10^3uL (1.8-7.7) Lymphocytes # (Auto) 0.9x10^3/uL (1.0-4.8) Monocytes # (Auto) 0.4x10^3/uL (0.0-1.1) Eosinophils # (Auto) 0.2x10^3/uL (0.0-0.7) Basophils # (Auto) 0.0x10^3/uL (0.0-0.2) Sodium Level 143mmol/L (136-145) Potassium Level 3.8mmol/L (3.5-5.1) Chloride Level 106mmol/L (98-107) Carbon Dioxide Level 32mmol/L (21-32) Anion Gap 5 (6-14) Blood Urea Nitrogen 29mg/dL (8-26) Creatinine 2.3mg/dL (0.7-1.3) Estimated GFR (Cockcroft-Gault) 28.2 Glucose Level 81mg/dL (70-99) Calcium Level 8.4mg/dL (8.5-10.1) Test 10/29/16 11:08 Glucose (Fingerstick) 86mg/dL (70-99) Micro Micro Microbiology 10/25/16 Blood Culture - Preliminary, Resulted NO GROWTH AFTER 3 DAYS 10/21/16 Urine Culture - Final, Complete 10/21/16 Urine Culture Result 1 (HERBERT) - Final, Complete 10/22/16 Gram Stain - Final, Complete Physical Exam General Appearance: no apparent distress Skin: warm Respiratory: decreased breath sounds Heart: S1S2, RRR Abdomen: soft, bowel sounds present Genitourinary: bladder flat Extremities: pulses present Neurology: alert, oriented, follow commands Musculoskeletal: Osteoarthritis, Other (foot osteomyelitis) Assessment Assessment IMP CHF RHETT PROB CKD HYPOXIA RESP FAILURE ST-FROM [facility]IST-BETTER PLAN IV LASIX TO CONTINUE HD TOMORROW ENC PO WILL HAVE IR CONVERT TEMP TO TUNNELED HD CATHETER HAVE ASKED SW TO SET UP OP HD WILL FOLLOW BEVERLY EDWARD MD Oct 29, 2016 11:58
--- NOTE | 2016-10-29 13:02 | PDOC ---
PROGRESS NOTES Chief Complaint Chief Complaint Hypoxic respiratory failure - CHF, diastolic - RHETT, improving - suspected underlying CKD - Hypokalemia: improved - L foot osteomyelitis; s/p I&D on 10/[address] Luis. wound vac in place. - DM2 - Afib - HTN, well controlled - COPD - acute diarrhea, resolved - metab acidosis, resolved - thrombocytopenia, chronic, stable; 80s-90s. suspect ITP - anemia, normocytic, normochromic History of Present Illness History of Present Illness Patient in no acute distress when evaluated this AM, and without new complaints. Pt feels ready to be discharged. Discussed case with RN and SW. Pt preferring home with [facility] instead of LTAC. Vitals Vitals Vital Signs Date Time Temp Pulse Resp B/P Pulse Ox O2 Delivery O2 Flow Rate FiO2 10/29/16 12:08 Nasal Cannula 4.0 10/29/16 10:40 97.9 81 20 114/39 95 97.9 Physical Exam General: Alert, Cooperative, No acute distress Heart: Normal S1, Normal S2, Other (2/6 systolic murmur to LLS border; irreg, tachy) Lungs: Clear Abdomen: Normal bowel sounds, Soft, No tenderness Extremities: No clubbing, No cyanosis Skin: No rashes, Other (left foot wound covered with wound vac. bilat distal foot amputations) Labs LABS Laboratory Tests Test 10/28/16 16:54 10/28/16 21:02 10/29/16 03:43 10/29/16 07:58 Glucose (Fingerstick) 83mg/dL (70-99) 75mg/dL (70-99) 74mg/dL (70-99) White Blood Count 7.0x10^3/uL (4.0-11.0) Red Blood Count 3.19x10^6/uL (4.30-5.70) Hemoglobin 9.0g/dL (13.0-17.5) Hematocrit 27.0% (39.0-53.0) Mean Corpuscular Volume 85fL (79-100) Mean Corpuscular Hemoglobin 28pg (25-35) Mean Corpuscular Hemoglobin Concent 33g/dL (31-37) Red Cell Distribution Width 14.7% (11.5-14.5) Platelet Count 175x10^3/uL (140-400) Neutrophils (%) (Auto) 77% (31-73) Lymphocytes (%) (Auto) 14% (24-48) Monocytes (%) (Auto) 6% (0-9) Eosinophils (%) (Auto) 3% (0-3) Basophils (%) (Auto) 1% (0-3) Neutrophils # (Auto) 5.4x10^3uL (1.8-7.7) Lymphocytes # (Auto) 0.9x10^3/uL (1.0-4.8) Monocytes # (Auto) 0.4x10^3/uL (0.0-1.1) Eosinophils # (Auto) 0.2x10^3/uL (0.0-0.7) Basophils # (Auto) 0.0x10^3/uL (0.0-0.2) Sodium Level 143mmol/L (136-145) Potassium Level 3.8mmol/L (3.5-5.1) Chloride Level 106mmol/L (98-107) Carbon Dioxide Level 32mmol/L (21-32) Anion Gap 5 (6-14) Blood Urea Nitrogen 29mg/dL (8-26) Creatinine 2.3mg/dL (0.7-1.3) Estimated GFR (Cockcroft-Gault) 28.2 Glucose Level 81mg/dL (70-99) Calcium Level 8.4mg/dL (8.5-10.1) Test 10/29/16 11:08 Glucose (Fingerstick) 86mg/dL (70-99) Review of Systems Review of Systems denies fever, chills denying chest pain improved shortness of air Assessment and Plan Assessmemt and Plan ASSESSMENT: - Hypoxic respiratory failure - CHF, diastolic - RHETT, improving - suspected underlying CKD - Hypokalemia: improved - L foot osteomyelitis; s/p I&D on 10/[address] Luis. wound vac in place. - DM2, poorly controlled - Afib - HTN, well controlled - COPD - acute diarrhea, resolved - metab acidosis, resolved - thrombocytopenia, chronic, stable; 80s-90s. suspect ITP - anemia, normocytic, normochromicHad a cardiac stress test today; results pending. PLAN: - discharge with home health when cleared by subspecialists; SW setting up with [facility] - initiate outpt HD schedule per nephrology - MPI negative; cardiology following peripherally - repeat daily labs - cont nebs and O2 supplementation - cont wound care - PTOT - appreciate all subspecialists on the case Problems: Comment Review of Relevant I have reviewed the following items jovan (where applicable) has been applied. Labs Laboratory Tests Test 10/27/16 16:48 10/28/16 05:09 10/28/16 08:00 10/28/16 11:07 Glucose (Fingerstick) 171mg/dL (70-99) 158mg/dL (70-99) 227mg/dL (70-99) Sodium Level 143mmol/L (136-145) Potassium Level 4.0mmol/L (3.5-5.1) Chloride Level 105mmol/L (98-107) Carbon Dioxide Level 29mmol/L (21-32) Anion Gap 9 (6-14) Blood Urea Nitrogen 40mg/dL (8-26) Creatinine 3.1mg/dL (0.7-1.3) Estimated GFR (Cockcroft-Gault) 20.0 Glucose Level 162mg/dL (70-99) Calcium Level 8.4mg/dL (8.5-10.1) Phosphorus Level 3.5mg/dL (2.6-4.7) Albumin 2.1g/dL (3.4-5.0) Test 10/28/16 16:54 10/28/16 21:02 10/29/16 03:43 10/29/16 07:58 Glucose (Fingerstick) 83mg/dL (70-99) 75mg/dL (70-99) 74mg/dL (70-99) White Blood Count 7.0x10^3/uL (4.0-11.0) Red Blood Count 3.19x10^6/uL (4.30-5.70) Hemoglobin 9.0g/dL (13.0-17.5) Hematocrit 27.0% (39.0-53.0) Mean Corpuscular Volume 85fL (79-100) Mean Corpuscular Hemoglobin 28pg (25-35) Mean Corpuscular Hemoglobin Concent 33g/dL (31-37) Red Cell Distribution Width 14.7% (11.5-14.5) Platelet Count 175x10^3/uL (140-400) Neutrophils (%) (Auto) 77% (31-73) Lymphocytes (%) (Auto) 14% (24-48) Monocytes (%) (Auto) 6% (0-9) Eosinophils (%) (Auto) 3% (0-3) Basophils (%) (Auto) 1% (0-3) Neutrophils # (Auto) 5.4x10^3uL (1.8-7.7) Lymphocytes # (Auto) 0.9x10^3/uL (1.0-4.8) Monocytes # (Auto) 0.4x10^3/uL (0.0-1.1) Eosinophils # (Auto) 0.2x10^3/uL (0.0-0.7) Basophils # (Auto) 0.0x10^3/uL (0.0-0.2) Sodium Level 143mmol/L (136-145) Potassium Level 3.8mmol/L (3.5-5.1) Chloride Level 106mmol/L (98-107) Carbon Dioxide Level 32mmol/L (21-32) Anion Gap 5 (6-14) Blood Urea Nitrogen 29mg/dL (8-26) Creatinine 2.3mg/dL (0.7-1.3) Estimated GFR (Cockcroft-Gault) 28.2 Glucose Level 81mg/dL (70-99) Calcium Level 8.4mg/dL (8.5-10.1) Test 10/29/16 11:08 Glucose (Fingerstick) 86mg/dL (70-99) Laboratory Tests Test 10/28/16 16:54 10/28/16 21:02 10/29/16 03:43 10/29/16 07:58 Glucose (Fingerstick) 83mg/dL (70-99) 75mg/dL (70-99) 74mg/dL (70-99) White Blood Count 7.0x10^3/uL (4.0-11.0) Red Blood Count 3.19x10^6/uL (4.30-5.70) Hemoglobin 9.0g/dL (13.0-17.5) Hematocrit 27.0% (39.0-53.0) Mean Corpuscular Volume 85fL (79-100) Mean Corpuscular Hemoglobin 28pg (25-35) Mean Corpuscular Hemoglobin Concent 33g/dL (31-37) Red Cell Distribution Width 14.7% (11.5-14.5) Platelet Count 175x10^3/uL (140-400) Neutrophils (%) (Auto) 77% (31-73) Lymphocytes (%) (Auto) 14% (24-48) Monocytes (%) (Auto) 6% (0-9) Eosinophils (%) (Auto) 3% (0-3) Basophils (%) (Auto) 1% (0-3) Neutrophils # (Auto) 5.4x10^3uL (1.8-7.7) Lymphocytes # (Auto) 0.9x10^3/uL (1.0-4.8) Monocytes # (Auto) 0.4x10^3/uL (0.0-1.1) Eosinophils # (Auto) 0.2x10^3/uL (0.0-0.7) Basophils # (Auto) 0.0x10^3/uL (0.0-0.2) Sodium Level 143mmol/L (136-145) Potassium Level 3.8mmol/L (3.5-5.1) Chloride Level 106mmol/L (98-107) Carbon Dioxide Level 32mmol/L (21-32) Anion Gap 5 (6-14) Blood Urea Nitrogen 29mg/dL (8-26) Creatinine 2.3mg/dL (0.7-1.3) Estimated GFR (Cockcroft-Gault) 28.2 Glucose Level 81mg/dL (70-99) Calcium Level 8.4mg/dL (8.5-10.1) Test 10/29/16 11:08 Glucose (Fingerstick) 86mg/dL (70-99) Microbiology 10/25/16 Blood Culture - Preliminary, Resulted NO GROWTH AFTER 3 DAYS 10/21/16 Urine Culture - Final, Complete 10/21/16 Urine Culture Result 1 (HERBERT) - Final, Complete 10/22/16 Gram Stain - Final, Complete Medications Current Medications Diltiazem HCl 20 mg 20 mg 1X ONCE IVP Last administered on 10/20/16t 13:35; Start 10/20/16 at 13:30; Stop 10/20/16 at 13:31; Status DC Diltiazem HCl 125 mg/Dextrose 125 ml @ 10 mls/hr 1X ONCE IV Last administered on 10/20/16 13:49; Start 10/20/16 at 13:30; Stop 10/20/16 at 19:37; Status DC Sodium Chloride (Iv Sodium Chloride 0.9% 1000ml Bag) 1,000 ml @ 100 mls/hr Q10H IV Last administered on 10/20/16 13:45; Start 10/20/16 at 13:30; Stop at 23:29; Status DC Diltiazem HCl (Cardizem) 20 mg 1X ONCE IVP Last administered on 10/20/16 14:16 ; Start 10/20/16 at 14:00; Stop 10/20/16 at 14:01; Status DC Vancomycin HCl (Vanco Per Pharmacy) 1 each PRN DAILY PRN MC SEE COMMENTS Last administered on 10/20/16 16:49; Start 10/20/16 at 14:45; Stop 10/21/16 at 07:42; Status DC Piperacillin Sod/ Tazobactam Sod 1 each 1 each PRN DAILY PRN MC SEE COMMENTS; Start 10/20/16 at 14:45; Stop 10/21/16 at 07:49; Status DC Vancomycin HCl 2 gm/Sodium Chloride 500 ml @ 250 mls/hr 1X ONCE IV Last administered on 10/20/16 15:45; Start 10/20/16 at 15:00; Stop 10/20/16 at 16:59; Status DC Piperacillin Sod/ Tazobactam Sod/ Sodium Chloride (Zosyn/Iv Sodium Chloride 0.9 % 50ml) 50 ml @ 100 mls/hr 1X ONCE IV Last administered on 10/20/16 15:04; Start 10/20/16 at 15:00; Stop 10/20/16 at 15:29; Status DC Ondansetron HCl (Zofran) 4 mg PRN Q8HRS PRN IV NAUSEA/VOMITING; Start 10/20/16 at 15:00; Stop 10/20/16 at 15:16; Status DC Fentanyl Citrate 50 mcg 50 mcg PRN Q2HR PRN IV PAIN; Start 10/20/16 at 15:00; Stop 10/21/16 at 14:59; Status DC Sodium Chloride (Iv Sodium Chloride 0.9% 1000ml Bag) 1,000 ml @ 100 mls/hr Q10H IV Last administered on 10/21/16 11:30; Start 10/20/16 at 15:30; Stop at 15:29; Status DC Acetaminophen (Tylenol) 650 mg PRN Q4HRS PRN PO FEVER; Start 10/20/16 at 15:00; Stop 10/21/16 at 14:59; Status DC Ondansetron HCl (Zofran) 4 mg PRN Q6HRS PRN IV NAUSEA/VOMITING; Start 10/20/16 at 15:12 Insulin Aspart (Novolog) 0-9 UNITS TIDWMEALS SQ Last administered on 10/28/16 11:33; Start 10/20/16 at 17:00 Dextrose 12.5 gm PRN Q15MIN PRN IV SEE COMMENTS Last administered on 10/26/16 23:42; Start 10/20/16 at 15:15 Docusate Sodium (Colace) 100 mg BID PO Last administered on 10/26/16 21:17; Start 10/20/16 at 21:00 Glimepiride (Amaryl) 2 mg BID PO ; Start 10/20/16 at 21:00; Status UNV Acetaminophen/ Hydrocodone Bitart (Lortab 7.5/325) 1 tab PRN Q3HRS PRN PO PAIN Last administered on 10/26/16 15:27; Start 10/20/16 at 15:15 Glimepiride (Amaryl) 4 mg BIDWMEALS PO Last administered on 10/20/16 17:32; Start 10/20/16 at 17:00; Stop 10/21/16 at 14:52; Status DC Insulin Detemir (Levemir) 30 units QHS SQ Last administered on 10/20/16 21:03; Start 10/20/16 at 21:00; Stop 10/21/16 at 14:52; Status DC Ondansetron HCl 4 mg 4 mg Q8HRS PO Last administered on 10/21/16 06:17; Start 10/20/16 at 22:00; Stop 10/21/16 at 17:24; Status DC Sodium Chloride 500 ml @ 500 mls/hr 1X ONCE IV ; Start 10/20/16 at 15:30; Stop 10/20/16 at 16:29; Status DC Piperacillin Sod/ Tazobactam Sod 2.25 gm/Sodium Chloride 50 ml @ 100 mls/hr Q6HRS IV Last administered on 10/27/16 06:03; Start 10/21/16 at 00:00; Stop at 07:43; Status DC Vancomycin HCl/ Sodium Chloride (Iv Sodium Chloride 0.9% 250ml) 250 ml @ 167 mls/hr Q24H IV ; Start 10/21/16 at 16:00; Stop 10/21/16 at 16:00; Status DC Vancomycin HCl 1 each 1 each 1X ONCE MC ; Start 10/22/16 at 15:30; Stop 10/22/16 at 15:31; Status Cancel Dopamine HCl/ Dextrose 250 ml @ 13.183 mls/ hr CONT PRN IV SEE I/O RECORD Last administered on 10/20/16 20:38; Start 10/20/16 at 19:30; Stop 10/28/16 at 15 :26; Status DC Digoxin (Lanoxin) 250 mcg 1X ONCE IV Last administered on 10/20/16 21:02; Start 10/20/16 at 20:45; Stop 10/20/16 at 20:46; Status DC Digoxin (Lanoxin) 250 mcg 1X ONCE IV Last administered on 10/21/16 01:48; Start 10/21/16 at 02:00; Stop 10/21/16 at 02:01; Status DC Digoxin 250 mcg 250 mcg 1X ONCE IV Last administered on 10/21/16 04:12; Start 10/21/16 at 04:15; Stop 10/21/16 at 04:16; Status DC Diltiazem HCl 125 mg/Dextrose 125 ml @ 0 mls/hr CONT PRN IV SEE I/O RECORD Last administered on 10/21/16 23:03; Start 10/21/16 at 04:15; Stop 10/22/16 at 09: 44; Status DC Linezolid 300 ml @ 300 mls/hr Q12HR IV Last administered on 10/22/16 20:18; Start 10/21/16 at 09:00; Stop 10/23/16 at 07:26; Status DC Magnesium Sulfate/ Dextrose 50 ml @ 25 mls/hr PRN DAILY PRN IV for Mag < 1.7 on am labs Last administered on 10/22/16 15:15; Start 10/21/16 at 09:45 Albumin Human (Plasmanate) 500 ml @ 125 mls/hr 1X ONCE IV Last administered on 10/21/16 10:25; Start 10/21/16 at 09:45; Stop 10/21/16 at 13:44; Status DC Ondansetron HCl (Zofran) 4 mg PRN Q6HRS PRN IV Nausea; Start 10/21/16 at 10:00; Stop 10/22/16 at 09:59; Status DC Fentanyl Citrate (Fentanyl 2ml Vial) 25 mcg PRN Q5MIN PRN IV MILD PAIN; Start 10/21/16 at 10:00; Stop 10/22/16 at 09:59; Status DC Fentanyl Citrate (Fentanyl 2ml Vial) 50 mcg PRN Q5MIN PRN IV MODERATE PAIN; Start 10/21/16 at 10:00; Stop 10/22/16 at 09:59; Status DC Morphine Sulfate 1 mg 1 mg PRN Q10MIN PRN IV SEVERE PAIN; Start 10/21/16 at 10: 00; Stop 10/22/16 at 09:59; Status DC Lactated Ringer's (Iv Lactated Ringers) 1,000 ml @ 30 mls/hr Q24H IV ; Start at 09:50; Stop 10/21/16 at 21:49; Status DC Lidocaine HCl 2 ml 1X PRN PRN ID IV START; Start 10/21/16 at 10:00; Stop at 09:59; Status DC Hydromorphone HCl (Dilaudid) 0.5 mg PRN Q10MIN PRN IV SEV PAIN,Second choice; Start 10/21/16 at 10:00; Stop 10/22/16 at 09:59; Status DC Prochlorperazine Edisylate 5 mg 5 mg PACU PRN PRN IV NAUSEA; Start 10/21/16 at 10:00; Stop 10/22/16 at 09:59; Status DC Sodium Chloride (Iv Sodium Chloride 0.9% 500ml Bag) 500 ml @ 0 mls/hr PRN QID PRN IV UO< 30cc/hr over previous 6hrs; Start 10/21/16 at 10:15; Stop 10/21/16 at 17:27; Status DC Ondansetron HCl (Zofran) 4 mg PRN Q6HRS PRN IV Nausea; Start 10/21/16 at 11:30; Stop 10/22/16 at 11:29; Status DC Morphine Sulfate 1 mg 1 mg PRN Q10MIN PRN IV SEVERE PAIN; Start 10/21/16 at 11: 30; Stop 10/22/16 at 11:29; Status DC Lactated Ringer's (Iv Lactated Ringers) 1,000 ml @ 0 mls/hr Q0M IV ; Start 10/21 at 11:19; Stop 10/21/16 at 23:18; Status DC Lidocaine HCl 2 ml 1X PRN PRN ID IV START; Start 10/21/16 at 11:30; Stop at 11:29; Status DC Hydromorphone HCl (Dilaudid) 0.5 mg PRN Q10MIN PRN IV SEV PAIN,Second choice; Start 10/21/16 at 11:30; Stop 10/22/16 at 11:29; Status DC Prochlorperazine Edisylate (Compazine) 5 mg PACU PRN PRN IV NAUSEA; Start at 11:30; Stop 10/22/16 at 11:29; Status DC Atorvastatin Calcium (Lipitor) 20 mg QHS PO Last administered on 10/28/16t 21: 23; Start 10/21/16 at 21:00 Aspirin (Ecotrin) 81 mg DAILYWBKFT PO Last administered on 10/29/16t 09:08; Start 10/21/16 at 12:00 Ondansetron HCl (Zofran) 4 mg PRN Q6HRS PRN IV Nausea; Start 10/22/16 at 07:00; Stop 10/23/16 at 06:59; Status DC Morphine Sulfate 1 mg 1 mg PRN Q10MIN PRN IV SEVERE PAIN; Start 10/22/16 at 07: 00; Stop 10/23/16 at 06:59; Status DC Lactated Ringer's (Iv Lactated Ringers) 1,000 ml @ 30 mls/hr Q24H IV ; Start at 07:00; Stop 10/22/16 at 15:07; Status DC Lidocaine HCl 2 ml 1X PRN PRN ID IV START; Start 10/22/16 at 07:00; Stop at 06:59; Status DC Hydromorphone HCl (Dilaudid) 0.5 mg PRN Q10MIN PRN IV SEVERE PAIN, Second choice; Start 10/22/16 at 07:00; Stop 10/23/16 at 06:59; Status DC Prochlorperazine Edisylate (Compazine) 5 mg PACU PRN PRN IV NAUSEA; Start at 07:00; Stop 10/23/16 at 06:59; Status DC Aspirin (Ecotrin) 81 mg DAILYWBKFT PO ; Start 10/22/16 at 08:00; Status UNV Insulin Detemir (Levemir) 20 units QHS SQ ; Start 10/21/16 at 21:00; Stop at 08:29; Status DC Ondansetron HCl 4 mg 4 mg PRN Q8HRS PRN PO NAUSEA; Start 10/22/16 at 14:00 Sodium Chloride 1,000 ml @ 175 mls/hr Q5H43M IV Last administered on 05:30; Start 10/21/16 at 18:00; Stop 10/23/16 at 07:20; Status DC Dextrose 1,000 ml @ 75 mls/hr [id number] IV Last administered on 10/22/16 04:54; Start 10/22/16 at 04:45; Stop 10/22/16 at 15:05; Status DC Bupivacaine HCl (Sensorcaine Mpf 0.5%) 30 ml STK-MED ONCE .ROUTE ; Start at 06:45; Stop 10/22/16 at 06:46; Status DC Lidocaine HCl 20 ml 20 ml STK-MED ONCE .ROUTE ; Start 10/22/16 at 06:46; Stop 10/22/16 at 06:47; Status DC Propofol (Diprivan) 20 ml @ As Directed STK-MED ONCE IV ; Start 10/22/16 at 08:02 ; Stop 10/22/16 at 08:03; Status DC Lidocaine HCl 100 mg STK-MED ONCE .ROUTE ; Start 10/22/16 at 08:02; Stop 10/22/16 at 08:03; Status DC Ondansetron HCl (Zofran) 4 mg STK-MED ONCE .ROUTE ; Start 10/22/16 at 08:31; Stop 10/22/16 at 08:32; Status DC Phenylephrine HCl 1 mg STK-MED ONCE IV ; Start 10/22/16 at 08:31; Stop 10/22/16 at 08:32; Status DC Dexamethasone Sodium Phosphate (Decadron) 20 mg STK-MED ONCE .ROUTE ; Start 10/22 at 08:48; Stop 10/22/16 at 08:49; Status DC Sevoflurane (Ultane) 30 ml STK-MED ONCE IH ; Start 10/22/16 at 08:48; Stop at 08:49; Status DC Diltiazem HCl (Cardizem) 30 mg Q6HRS PO Last administered on 10/27/16 11:27; Start 10/22/16 at 10:00; Stop 10/27/16 at 12:31; Status DC Metoprolol Tartrate 5 mg 5 mg PRN Q6HRS PRN IVP ELEVATED BP, SEE COMMENTS; Start 10/22/16 at 09:45 Albumin Human (Plasmanate) 500 ml @ 125 mls/hr 1X ONCE IV Last administered on 10/22/16 11:20; Start 10/22/16 at 09:45; Stop 10/22/16 at 13:44; Status DC Info (Anti-Coagulation Monitoring By Pharmacy) 1 each PRN DAILY PRN MC SEE COMMENTS; Start 10/22/16 at 15:15; Status UNV Heparin Sodium (Porcine) 5,000 unit Q12HR SQ Last administered on 10/28/16 11: 08; Start 10/22/16 at 21:00; Stop 10/28/16 at 16:02; Status DC Loperamide HCl (Imodium) 2 mg PRN Q15MIN PRN PO DIARRHEA Last administered on 09:27; Start 10/22/16 at 20:00 Insulin Human Regular (Novolin R Vial) 10 unit 1X ONCE IV Last administered on 10/22/16 23:52; Start 10/22/16 at 01:00; Stop 10/22/16 at 23:46; Status DC Insulin Detemir (Levemir) 10 units 1X ONCE SQ Last administered on 10/22/16 23 :53; Start 10/22/16 at 23:45; Stop 10/22/16 at 23:46; Status DC Insulin Human Regular 10 unit 10 unit 1X ONCE IV Last administered on 00:09; Start 10/23/16 at 00:00; Stop 10/23/16 at 00:01; Status DC Sodium Chloride 38.75 meq/Sodium Bicarbonate 75 meq/Sterile Water 1,084.6875 ml @ 150 mls/hr CONT PRN IV SEE I/O RECORD Last administered on 10/24/16 07:12; Start 10/23/16 at 07:30 Albumin Human (Albuminar) 100 ml @ 100 mls/hr TID IV Last administered on 10/24 21:23; Start 10/23/16 at 09:00; Stop 10/24/16 at 21:59; Status DC Heparin Sodium (Porcine) 10,000 unit STK-MED ONCE .ROUTE ; Start 10/23/16 at 07: 55; Stop 10/23/16 at 07:56; Status DC Lidocaine/Sodium Bicarbonate 20 ml 20 ml STK-MED ONCE IJ ; Start 10/23/16 at 07: 55; Stop 10/23/16 at 07:56; Status DC Heparin Sodium/ Sodium Chloride 500 ml @ As Directed STK-MED ONCE .ROUTE ; Start 10/23/16 at 07:55; Stop 10/23/16 at 07:56; Status DC Insulin Detemir (Levemir) 20 units [id number] SQ ; Start 10/23/16 at 08:00; Stop at 08:01; Status DC Insulin Aspart (Novolog) 10 units TIDAC SQ Last administered on 10/23/16 17:46 ; Start 10/23/16 at 11:30; Stop 10/24/16 at 11:12; Status DC Insulin Detemir (Levemir) 30 units DAILY08 SQ Last administered on 10/23/16 09 :55; Start 10/23/16 at 08:30; Stop 10/24/16 at 11:12; Status DC Lidocaine/Sodium Bicarbonate (Buffered Lidocaine 1%) 3 ml 1X ONCE IJ Last administered on 10/23/16 08:48; Start 10/23/16 at 08:30; Stop 10/23/16 at 08:31 ; Status DC Heparin Sodium/ Sodium Chloride 60 unit 1X ONCE IV Last administered on 08:48; Start 10/23/16 at 08:30; Stop 10/23/16 at 08:31; Status DC Heparin Sodium (Porcine) 2,500 unit 1X ONCE INT CAT Last administered on 08:48; Start 10/23/16 at 08:30; Stop 10/23/16 at 08:31; Status DC Albuterol/ Ipratropium (Duoneb) 3 ml RTQID NEB Last administered on 10/29/16 12:08; Start 10/24/16 at 12:00 Albuterol/ Ipratropium (Duoneb) 3 ml 1X ONCE NEB Last administered on 09:11; Start 10/24/16 at 09:00; Stop 10/24/16 at 09:01; Status DC Budesonide (Pulmicort) 0.5 mg RTBID NEB Last administered on 10/29/16 07:01; Start 10/24/16 at 10:00 Insulin Aspart (Novolog) 7 units TIDAC SQ Last administered on 10/29/16 12:24 ; Start 10/24/16 at 11:30 Insulin Detemir (Levemir) 20 units DAILY08 SQ Last administered on 10/29/16 09 :26; Start 10/25/16 at 08:00 Potassium Chloride 20 meq 20 meq 1X ONCE PO Last administered on 10/24/16 18: 28; Start 10/24/16 at 12:00; Stop 10/24/16 at 12:01; Status DC Sodium Chloride 1,000 ml @ 1,000 mls/hr Q1H PRN IV hypotension; Start 10/24/16 at 13:00; Stop 10/24/16 at 18:59; Status DC Albumin Human (Albuminar) 200 ml @ 200 mls/hr 1X PRN PRN IV Hypotension; Start 10/24/16 at 14:00; Stop 10/24/16 at 19:59; Status DC Acetaminophen (Tylenol) 500 mg 1X PRN PRN PO MILD PAIN / TEMP; Start 10/24/16 at 14:00; Stop 10/25/16 at 13:59; Status DC Diphenhydramine HCl (Benadryl) 25 mg 1X PRN PRN IV ITCHING; Start 10/24/16 at 14:00; Stop 10/25/16 at 13:59; Status DC Diphenhydramine HCl (Benadryl) 25 mg 1X PRN PRN IV ITCHING; Start 10/24/16 at 14:00; Stop 10/25/16 at 13:59; Status DC Info (PHARMACY MONITORING -- do not chart) 1 each PRN DAILY PRN MC SEE COMMENTS ; Start 10/24/16 at 14:00; Stop 10/25/16 at 13:16; Status DC Potassium Chloride 20 meq 20 meq 1X ONCE PO ; Start 10/24/16 at 18:30; Stop 07/02 at 18:31; Status DC Amino Acids/ Electrolytes (Clinimix E 2.75%-5% Solution) 1,000 ml @ 55 mls/hr [id number] IV Last administered on 10/27/16 00:52; Start 10/25/16 at 12:00; Stop 10/27/16 at 14:10; Status DC Hydralazine HCl 10 mg 10 mg PRN Q4HRS PRN IVP ELEVATED BP, SEE COMMENTS Last administered on 10/27/16 06:05; Start 10/25/16 at 12:45 Sodium Chloride 1,000 ml @ 1,000 mls/hr Q1H PRN IV hypotension; Start 10/25/16 at 13:07; Stop 10/25/16 at 19:06; Status DC Albumin Human (Albuminar) 200 ml @ 200 mls/hr 1X PRN PRN IV Hypotension Last administered on 10/25/16 14:30; Start 10/25/16 at 13:15; Stop 10/25/16 at 19:14 ; Status DC Acetaminophen (Tylenol) 500 mg 1X PRN PRN PO MILD PAIN / TEMP; Start 10/25/16 at 13:15; Stop 10/26/16 at 13:14; Status DC Diphenhydramine HCl (Benadryl) 25 mg 1X PRN PRN IV ITCHING; Start 10/25/16 at 13:15; Stop 10/26/16 at 13:14; Status DC Diphenhydramine HCl (Benadryl) 25 mg 1X PRN PRN IV ITCHING; Start 10/25/16 at 13:15; Stop 10/26/16 at 13:14; Status DC Info (PHARMACY MONITORING -- do not chart) 1 each PRN DAILY PRN MC SEE COMMENTS ; Start 10/25/16 at 13:15 Famotidine (Pepcid) 20 mg QHS IVP Last administered on 10/26/16 21:17; Start 10/26/16 at 21:00; Stop 10/27/16 at 11:20; Status DC Furosemide 40 mg 40 mg [id number] IVP Last administered on 10/29/16 09:11; Start at 12:00 Sodium Chloride 1,000 ml @ 1,000 mls/hr Q1H PRN IV hypotension; Start 10/26/16 at 13:55; Stop 10/26/16 at 19:54; Status DC Sodium Chloride (Iv Sodium Chloride 0.9% 1000ml Bag) 1,000 ml @ 400 mls/hr Q2H30M PRN IV PATENCY; Start 10/26/16 at 13:55; Stop 10/27/16 at 01:54; Status DC Info 1 each 1 each PRN DAILY PRN MC SEE COMMENTS; Start 10/26/16 at 14:00; Status UNV Meropenem/Sodium Chloride (Merrem/Iv Sodium Chloride 0.9% 50ml) 50 ml @ 100 mls /hr Q6HRS IV Last administered on 10/28/16 06:00; Start 10/27/16 at 12:00; Stop 10/28/16 at 09:22; Status DC Metoprolol Tartrate (Lopressor) 25 mg BID PO Last administered on 10/29/16 09: 11; Start 10/27/16 at 12:00 Famotidine (Pepcid) 20 mg QHS PO Last administered on 10/28/16 21:23; Start at 21:00 Diltiazem HCl (Cardizem 24hr Cd) 180 mg DAILYBFRSUP PO Last administered on 17:11; Start 10/27/16 at 17:00 Regadenoson (Lexiscan) 0.4 mg 1X ONCE IV Last administered on 10/28/16 09:18 ; Start 10/28/16 at 07:45; Stop 10/28/16 at 07:46; Status DC Lactobacillus Acidophilus 1 tab 1 tab TIDWMEALS PO Last administered on 12:21; Start 10/28/16 at 12:00 Meropenem 500 mg/ Sodium Chloride 50 ml @ 100 mls/hr Q12HR IV Last administered on 10/29/16 09:09; Start 10/28/16 at 21:00 Sodium Chloride 1,000 ml @ 1,000 mls/hr Q1H PRN IV hypotension; Start 10/28/16 at 09:34; Stop 10/28/16 at 15:33; Status DC Albumin Human (Albuminar) 200 ml @ 200 mls/hr 1X PRN PRN IV Hypotension; Start 10/28/16 at 09:45; Stop 10/28/16 at 15:44; Status DC Acetaminophen (Tylenol) 500 mg 1X PRN PRN PO MILD PAIN / TEMP; Start 10/28/16 at 09:45; Stop 10/28/16 at 16:02; Status DC Diphenhydramine HCl (Benadryl) 25 mg 1X PRN PRN IV ITCHING; Start 10/28/16 at 09:45; Stop 10/28/16 at 16:02; Status DC Diphenhydramine HCl (Benadryl) 25 mg 1X PRN PRN IV ITCHING; Start 10/28/16 at 09:45; Stop 10/28/16 at 16:02; Status DC Sodium Chloride (Normal Saline Flush) 10 ml 1X PRN PRN IV AP catheter pack; Start 10/28/16 at 09:45; Stop 10/28/16 at 16:02; Status DC Sodium Chloride (Normal Saline Flush) 10 ml 1X PRN PRN IV SCREENING NURSE catheter pack; Start 10/28/16 at 09:45; Stop 10/28/16 at 16:02; Status DC Labetalol HCl 10 mg 10 mg PRN Q1HR PRN IVP SBP > 180; Start 10/28/16 at 09:45; Stop 10/28/16 at 16:02; Status DC Sodium Chloride (Iv Sodium Chloride 0.9% 1000ml Bag) 1,000 ml @ 400 mls/hr Q2H30M PRN IV PATENCY; Start 10/28/16 at 09:34; Stop 10/28/16 at 21:33; Status DC Info 1 each 1 each PRN DAILY PRN MC SEE COMMENTS; Start 10/28/16 at 09:45; Status UNV Sodium Chloride (Iv Sodium Chloride 0.9% 1000ml Bag) 1,000 ml @ 1,000 mls/hr Q1H PRN IV hypotension; Start 10/28/16 at 12:47; Stop 10/28/16 at 18:46; Status UNV Diphenhydramine HCl (Benadryl) 25 mg 1X PRN PRN IV ITCHING; Start 10/28/16 at 13:00; Stop 10/29/16 at 12:59; Status UNV Diphenhydramine HCl (Benadryl) 25 mg 1X PRN PRN IV ITCHING; Start 10/28/16 at 13:00; Stop 10/29/16 at 12:59; Status UNV Sodium Chloride (Normal Saline Flush) 10 ml 1X PRN PRN IV AP catheter pack; Start 10/28/16 at 13:00; Stop 10/29/16 at 12:59; Status UNV Sodium Chloride 10 ml 10 ml 1X PRN PRN IV SCREENING NURSE catheter pack; Start 10/28/16 at 13:00; Stop 10/29/16 at 12:59; Status UNV Sodium Chloride (Iv Sodium Chloride 0.9% 1000ml Bag) 1,000 ml @ 400 mls/hr Q2H30M PRN IV PATENCY; Start 10/28/16 at 12:47; Stop 10/29/16 at 00:46; Status UNV Info (PHARMACY MONITORING -- do not chart) 1 each PRN DAILY PRN MC SEE COMMENTS ; Start 10/28/16 at 13:00; Status UNV Apixaban (Eliquis) 5 mg BID PO Last administered on 10/29/16t 09:12; Start at 21:00 Active Scripts Active Reported Zofran Odt (Ondansetron) 8 Mg Tab.rapdis 1 Tab PO Q8HRS Colace (Docusate Sodium) 100 Mg Capsule 1 Cap PO BID Hydrocodone-Apap 7.5-325 (Hydrocodone Bit/Acetaminophen) 1 Each Tablet 1 Tab PO Q3HRS PRN Glimepiride 4 Mg Tablet 1 Tab PO BID Glimepiride 2 Mg Tablet 1 Tab PO BID Levemir (Insulin Detemir) 100 Unit/1 Ml Vial 30 Unit SQ HS Vitals/I & O Vital Sign - Last 24 Hours 10/28/16 10/28/16 10/28/16 10/28/16 15:00 15:49 17:11 19:00 Temp 98.0 97.7 98.0 97.7 Pulse 89 93 101 Resp 16 16 B/P 144/89 148/70 136/58 Pulse Ox 99 98 97 O2 Delivery Simple Mask Venturi Mask Nasal Cannula O2 Flow Rate 12.0 4.0 10/28/16 10/28/16 10/28/16 10/28/16 19:40 19:45 20:00 21:24 Pulse 101 B/P 136/58 Pulse Ox 100 100 O2 Delivery Nasal Cannula Nasal Cannula Nasal Cannula O2 Flow Rate 9.0 4.0 4.0 10/28/16 10/29/16 10/29/16 10/29/16 23:41 03:00 07:03 07:50 Temp 98.1 97.9 97.5 98.1 97.9 97.5 Pulse 79 116 93 Resp 20 20 20 B/P 126/47 143/56 142/65 Pulse Ox 94 96 96 96 O2 Delivery Nasal Cannula Nasal Cannula Nasal Cannula Nasal Cannula O2 Flow Rate 4.0 4.0 4.0 4.0 10/29/16 10/29/16 10/29/16 09:11 10:40 12:08 Temp 97.9 97.9 Pulse 93 81 Resp 20 B/P 142/65 114/39 Pulse Ox 95 O2 Delivery Nasal Cannula Nasal Cannula O2 Flow Rate 4.0 4.0 Intake and Output 10/28/16 10/28/16 10/29/16 15:00 23:00 07:00 Intake Total 360 ml Output Total 900 ml Balance 360 ml -900 ml OSCAR SOLIS III DO Oct 29, 2016 13:02
--- NOTE | 2016-10-29 13:56 | PDOC ---
G I PROGRESS NOTE Subjective Asleep, not awakened. Objective No reports of any diarrhea; only one stool daily charted. Physical Exam NO PE. Review of Relevant I have reviewed the following items jovan (where applicable) has been applied. Labs Laboratory Tests Test 10/27/16 16:48 10/28/16 05:09 10/28/16 08:00 10/28/16 11:07 Glucose (Fingerstick) 171mg/dL (70-99) 158mg/dL (70-99) 227mg/dL (70-99) Sodium Level 143mmol/L (136-145) Potassium Level 4.0mmol/L (3.5-5.1) Chloride Level 105mmol/L (98-107) Carbon Dioxide Level 29mmol/L (21-32) Anion Gap 9 (6-14) Blood Urea Nitrogen 40mg/dL (8-26) Creatinine 3.1mg/dL (0.7-1.3) Estimated GFR (Cockcroft-Gault) 20.0 Glucose Level 162mg/dL (70-99) Calcium Level 8.4mg/dL (8.5-10.1) Phosphorus Level 3.5mg/dL (2.6-4.7) Albumin 2.1g/dL (3.4-5.0) Test 10/28/16 16:54 10/28/16 21:02 10/29/16 03:43 10/29/16 07:58 Glucose (Fingerstick) 83mg/dL (70-99) 75mg/dL (70-99) 74mg/dL (70-99) White Blood Count 7.0x10^3/uL (4.0-11.0) Red Blood Count 3.19x10^6/uL (4.30-5.70) Hemoglobin 9.0g/dL (13.0-17.5) Hematocrit 27.0% (39.0-53.0) Mean Corpuscular Volume 85fL (79-100) Mean Corpuscular Hemoglobin 28pg (25-35) Mean Corpuscular Hemoglobin Concent 33g/dL (31-37) Red Cell Distribution Width 14.7% (11.5-14.5) Platelet Count 175x10^3/uL (140-400) Neutrophils (%) (Auto) 77% (31-73) Lymphocytes (%) (Auto) 14% (24-48) Monocytes (%) (Auto) 6% (0-9) Eosinophils (%) (Auto) 3% (0-3) Basophils (%) (Auto) 1% (0-3) Neutrophils # (Auto) 5.4x10^3uL (1.8-7.7) Lymphocytes # (Auto) 0.9x10^3/uL (1.0-4.8) Monocytes # (Auto) 0.4x10^3/uL (0.0-1.1) Eosinophils # (Auto) 0.2x10^3/uL (0.0-0.7) Basophils # (Auto) 0.0x10^3/uL (0.0-0.2) Sodium Level 143mmol/L (136-145) Potassium Level 3.8mmol/L (3.5-5.1) Chloride Level 106mmol/L (98-107) Carbon Dioxide Level 32mmol/L (21-32) Anion Gap 5 (6-14) Blood Urea Nitrogen 29mg/dL (8-26) Creatinine 2.3mg/dL (0.7-1.3) Estimated GFR (Cockcroft-Gault) 28.2 Glucose Level 81mg/dL (70-99) Calcium Level 8.4mg/dL (8.5-10.1) Test 10/29/16 11:08 Glucose (Fingerstick) 86mg/dL (70-99) Laboratory Tests Test 10/28/16 16:54 10/28/16 21:02 10/29/16 03:43 10/29/16 07:58 Glucose (Fingerstick) 83mg/dL (70-99) 75mg/dL (70-99) 74mg/dL (70-99) White Blood Count 7.0x10^3/uL (4.0-11.0) Red Blood Count 3.19x10^6/uL (4.30-5.70) Hemoglobin 9.0g/dL (13.0-17.5) Hematocrit 27.0% (39.0-53.0) Mean Corpuscular Volume 85fL (79-100) Mean Corpuscular Hemoglobin 28pg (25-35) Mean Corpuscular Hemoglobin Concent 33g/dL (31-37) Red Cell Distribution Width 14.7% (11.5-14.5) Platelet Count 175x10^3/uL (140-400) Neutrophils (%) (Auto) 77% (31-73) Lymphocytes (%) (Auto) 14% (24-48) Monocytes (%) (Auto) 6% (0-9) Eosinophils (%) (Auto) 3% (0-3) Basophils (%) (Auto) 1% (0-3) Neutrophils # (Auto) 5.4x10^3uL (1.8-7.7) Lymphocytes # (Auto) 0.9x10^3/uL (1.0-4.8) Monocytes # (Auto) 0.4x10^3/uL (0.0-1.1) Eosinophils # (Auto) 0.2x10^3/uL (0.0-0.7) Basophils # (Auto) 0.0x10^3/uL (0.0-0.2) Sodium Level 143mmol/L (136-145) Potassium Level 3.8mmol/L (3.5-5.1) Chloride Level 106mmol/L (98-107) Carbon Dioxide Level 32mmol/L (21-32) Anion Gap 5 (6-14) Blood Urea Nitrogen 29mg/dL (8-26) Creatinine 2.3mg/dL (0.7-1.3) Estimated GFR (Cockcroft-Gault) 28.2 Glucose Level 81mg/dL (70-99) Calcium Level 8.4mg/dL (8.5-10.1) Test 10/29/16 11:08 Glucose (Fingerstick) 86mg/dL (70-99) Microbiology 10/25/16 Blood Culture - Preliminary, Resulted NO GROWTH AFTER 4 DAYS 10/21/16 Urine Culture - Final, Complete 10/21/16 Urine Culture Result 1 (HERBERT) - Final, Complete 10/22/16 Gram Stain - Final, Complete Medications Current Medications Diltiazem HCl 20 mg 20 mg 1X ONCE IVP Last administered on 10/20/16t 13:35; Start 10/20/16 at 13:30; Stop 10/20/16 at 13:31; Status DC Diltiazem HCl 125 mg/Dextrose 125 ml @ 10 mls/hr 1X ONCE IV Last administered on 10/20/16 13:49; Start 10/20/16 at 13:30; Stop 10/20/16 at 19:37; Status DC Sodium Chloride (Iv Sodium Chloride 0.9% 1000ml Bag) 1,000 ml @ 100 mls/hr Q10H IV Last administered on 10/20/16 13:45; Start 10/20/16 at 13:30; Stop at 23:29; Status DC Diltiazem HCl (Cardizem) 20 mg 1X ONCE IVP Last administered on 10/20/16 14:16 ; Start 10/20/16 at 14:00; Stop 10/20/16 at 14:01; Status DC Vancomycin HCl (Vanco Per Pharmacy) 1 each PRN DAILY PRN MC SEE COMMENTS Last administered on 10/20/16 16:49; Start 10/20/16 at 14:45; Stop 10/21/16 at 07:42; Status DC Piperacillin Sod/ Tazobactam Sod 1 each 1 each PRN DAILY PRN MC SEE COMMENTS; Start 10/20/16 at 14:45; Stop 10/21/16 at 07:49; Status DC Vancomycin HCl 2 gm/Sodium Chloride 500 ml @ 250 mls/hr 1X ONCE IV Last administered on 10/20/16 15:45; Start 10/20/16 at 15:00; Stop 10/20/16 at 16:59; Status DC Piperacillin Sod/ Tazobactam Sod/ Sodium Chloride (Zosyn/Iv Sodium Chloride 0.9 % 50ml) 50 ml @ 100 mls/hr 1X ONCE IV Last administered on 10/20/16 15:04; Start 10/20/16 at 15:00; Stop 10/20/16 at 15:29; Status DC Ondansetron HCl (Zofran) 4 mg PRN Q8HRS PRN IV NAUSEA/VOMITING; Start 10/20/16 at 15:00; Stop 10/20/16 at 15:16; Status DC Fentanyl Citrate 50 mcg 50 mcg PRN Q2HR PRN IV PAIN; Start 10/20/16 at 15:00; Stop 10/21/16 at 14:59; Status DC Sodium Chloride (Iv Sodium Chloride 0.9% 1000ml Bag) 1,000 ml @ 100 mls/hr Q10H IV Last administered on 10/21/16 11:30; Start 10/20/16 at 15:30; Stop at 15:29; Status DC Acetaminophen (Tylenol) 650 mg PRN Q4HRS PRN PO FEVER; Start 10/20/16 at 15:00; Stop 10/21/16 at 14:59; Status DC Ondansetron HCl (Zofran) 4 mg PRN Q6HRS PRN IV NAUSEA/VOMITING; Start 10/20/16 at 15:12 Insulin Aspart (Novolog) 0-9 UNITS TIDWMEALS SQ Last administered on 10/28/16 11:33; Start 10/20/16 at 17:00 Dextrose 12.5 gm PRN Q15MIN PRN IV SEE COMMENTS Last administered on 10/26/16 23:42; Start 10/20/16 at 15:15 Docusate Sodium (Colace) 100 mg BID PO Last administered on 10/26/16 21:17; Start 10/20/16 at 21:00 Glimepiride (Amaryl) 2 mg BID PO ; Start 10/20/16 at 21:00; Status UNV Acetaminophen/ Hydrocodone Bitart (Lortab 7.5/325) 1 tab PRN Q3HRS PRN PO PAIN Last administered on 10/26/16 15:27; Start 10/20/16 at 15:15 Glimepiride (Amaryl) 4 mg BIDWMEALS PO Last administered on 10/20/16 17:32; Start 10/20/16 at 17:00; Stop 10/21/16 at 14:52; Status DC Insulin Detemir (Levemir) 30 units QHS SQ Last administered on 10/20/16 21:03; Start 10/20/16 at 21:00; Stop 10/21/16 at 14:52; Status DC Ondansetron HCl 4 mg 4 mg Q8HRS PO Last administered on 10/21/16 06:17; Start 10/20/16 at 22:00; Stop 10/21/16 at 17:24; Status DC Sodium Chloride 500 ml @ 500 mls/hr 1X ONCE IV ; Start 10/20/16 at 15:30; Stop 10/20/16 at 16:29; Status DC Piperacillin Sod/ Tazobactam Sod 2.25 gm/Sodium Chloride 50 ml @ 100 mls/hr Q6HRS IV Last administered on 10/27/16 06:03; Start 10/21/16 at 00:00; Stop at 07:43; Status DC Vancomycin HCl/ Sodium Chloride (Iv Sodium Chloride 0.9% 250ml) 250 ml @ 167 mls/hr Q24H IV ; Start 10/21/16 at 16:00; Stop 10/21/16 at 16:00; Status DC Vancomycin HCl 1 each 1 each 1X ONCE MC ; Start 10/22/16 at 15:30; Stop 10/22/16 at 15:31; Status Cancel Dopamine HCl/ Dextrose 250 ml @ 13.183 mls/ hr CONT PRN IV SEE I/O RECORD Last administered on 10/20/16 20:38; Start 10/20/16 at 19:30; Stop 10/28/16 at 15 :26; Status DC Digoxin (Lanoxin) 250 mcg 1X ONCE IV Last administered on 10/20/16 21:02; Start 10/20/16 at 20:45; Stop 10/20/16 at 20:46; Status DC Digoxin (Lanoxin) 250 mcg 1X ONCE IV Last administered on 10/21/16 01:48; Start 10/21/16 at 02:00; Stop 10/21/16 at 02:01; Status DC Digoxin 250 mcg 250 mcg 1X ONCE IV Last administered on 10/21/16 04:12; Start 10/21/16 at 04:15; Stop 10/21/16 at 04:16; Status DC Diltiazem HCl 125 mg/Dextrose 125 ml @ 0 mls/hr CONT PRN IV SEE I/O RECORD Last administered on 10/21/16 23:03; Start 10/21/16 at 04:15; Stop 10/22/16 at 09: 44; Status DC Linezolid 300 ml @ 300 mls/hr Q12HR IV Last administered on 10/22/16 20:18; Start 10/21/16 at 09:00; Stop 10/23/16 at 07:26; Status DC Magnesium Sulfate/ Dextrose 50 ml @ 25 mls/hr PRN DAILY PRN IV for Mag < 1.7 on am labs Last administered on 10/22/16t 15:15; Start 10/21/16 at 09:45 Albumin Human (Plasmanate) 500 ml @ 125 mls/hr 1X ONCE IV Last administered on 10/21/16t 10:25; Start 10/21/16 at 09:45; Stop 10/21/16 at 13:44; Status DC Ondansetron HCl (Zofran) 4 mg PRN Q6HRS PRN IV Nausea; Start 10/21/16 at 10:00; Stop 10/22/16 at 09:59; Status DC Fentanyl Citrate (Fentanyl 2ml Vial) 25 mcg PRN Q5MIN PRN IV MILD PAIN; Start 10/21/16 at 10:00; Stop 10/22/16 at 09:59; Status DC Fentanyl Citrate (Fentanyl 2ml Vial) 50 mcg PRN Q5MIN PRN IV MODERATE PAIN; Start 10/21/16 at 10:00; Stop 10/22/16 at 09:59; Status DC Morphine Sulfate 1 mg 1 mg PRN Q10MIN PRN IV SEVERE PAIN; Start 10/21/16 at 10: 00; Stop 10/22/16 at 09:59; Status DC Lactated Ringer's (Iv Lactated Ringers) 1,000 ml @ 30 mls/hr Q24H IV ; Start at 09:50; Stop 10/21/16 at 21:49; Status DC Lidocaine HCl 2 ml 1X PRN PRN ID IV START; Start 10/21/16 at 10:00; Stop at 09:59; Status DC Hydromorphone HCl (Dilaudid) 0.5 mg PRN Q10MIN PRN IV SEV PAIN,Second choice; Start 10/21/16 at 10:00; Stop 10/22/16 at 09:59; Status DC Prochlorperazine Edisylate 5 mg 5 mg PACU PRN PRN IV NAUSEA; Start 10/21/16 at 10:00; Stop 10/22/16 at 09:59; Status DC Sodium Chloride (Iv Sodium Chloride 0.9% 500ml Bag) 500 ml @ 0 mls/hr PRN QID PRN IV UO< 30cc/hr over previous 6hrs; Start 10/21/16 at 10:15; Stop 10/21/16 at 17:27; Status DC Ondansetron HCl (Zofran) 4 mg PRN Q6HRS PRN IV Nausea; Start 10/21/16 at 11:30; Stop 10/22/16 at 11:29; Status DC Morphine Sulfate 1 mg 1 mg PRN Q10MIN PRN IV SEVERE PAIN; Start 10/21/16 at 11: 30; Stop 10/22/16 at 11:29; Status DC Lactated Ringer's (Iv Lactated Ringers) 1,000 ml @ 0 mls/hr Q0M IV ; Start 10/21 at 11:19; Stop 10/21/16 at 23:18; Status DC Lidocaine HCl 2 ml 1X PRN PRN ID IV START; Start 10/21/16 at 11:30; Stop at 11:29; Status DC Hydromorphone HCl (Dilaudid) 0.5 mg PRN Q10MIN PRN IV SEV PAIN,Second choice; Start 10/21/16 at 11:30; Stop 10/22/16 at 11:29; Status DC Prochlorperazine Edisylate (Compazine) 5 mg PACU PRN PRN IV NAUSEA; Start at 11:30; Stop 10/22/16 at 11:29; Status DC Atorvastatin Calcium (Lipitor) 20 mg QHS PO Last administered on 10/28/16t 21: 23; Start 10/21/16 at 21:00 Aspirin (Ecotrin) 81 mg DAILYWBKFT PO Last administered on 10/29/16 09:08; Start 10/21/16 at 12:00 Ondansetron HCl (Zofran) 4 mg PRN Q6HRS PRN IV Nausea; Start 10/22/16 at 07:00; Stop 10/23/16 at 06:59; Status DC Morphine Sulfate 1 mg 1 mg PRN Q10MIN PRN IV SEVERE PAIN; Start 10/22/16 at 07: 00; Stop 10/23/16 at 06:59; Status DC Lactated Ringer's (Iv Lactated Ringers) 1,000 ml @ 30 mls/hr Q24H IV ; Start at 07:00; Stop 10/22/16 at 15:07; Status DC Lidocaine HCl 2 ml 1X PRN PRN ID IV START; Start 10/22/16 at 07:00; Stop at 06:59; Status DC Hydromorphone HCl (Dilaudid) 0.5 mg PRN Q10MIN PRN IV SEVERE PAIN, Second choice; Start 10/22/16 at 07:00; Stop 10/23/16 at 06:59; Status DC Prochlorperazine Edisylate (Compazine) 5 mg PACU PRN PRN IV NAUSEA; Start at 07:00; Stop 10/23/16 at 06:59; Status DC Aspirin (Ecotrin) 81 mg DAILYWBKFT PO ; Start 10/22/16 at 08:00; Status UNV Insulin Detemir (Levemir) 20 units QHS SQ ; Start 10/21/16 at 21:00; Stop at 08:29; Status DC Ondansetron HCl 4 mg 4 mg PRN Q8HRS PRN PO NAUSEA; Start 10/22/16 at 14:00 Sodium Chloride 1,000 ml @ 175 mls/hr Q5H43M IV Last administered on 05:30; Start 10/21/16 at 18:00; Stop 10/23/16 at 07:20; Status DC Dextrose 1,000 ml @ 75 mls/hr [id number] IV Last administered on 10/22/16 04:54; Start 10/22/16 at 04:45; Stop 10/22/16 at 15:05; Status DC Bupivacaine HCl (Sensorcaine Mpf 0.5%) 30 ml STK-MED ONCE .ROUTE ; Start at 06:45; Stop 10/22/16 at 06:46; Status DC Lidocaine HCl 20 ml 20 ml STK-MED ONCE .ROUTE ; Start 10/22/16 at 06:46; Stop 10/22/16 at 06:47; Status DC Propofol (Diprivan) 20 ml @ As Directed STK-MED ONCE IV ; Start 10/22/16 at 08:02 ; Stop 10/22/16 at 08:03; Status DC Lidocaine HCl 100 mg STK-MED ONCE .ROUTE ; Start 10/22/16 at 08:02; Stop 10/22/16 at 08:03; Status DC Ondansetron HCl (Zofran) 4 mg STK-MED ONCE .ROUTE ; Start 10/22/16 at 08:31; Stop 10/22/16 at 08:32; Status DC Phenylephrine HCl 1 mg STK-MED ONCE IV ; Start 10/22/16 at 08:31; Stop 10/22/16 at 08:32; Status DC Dexamethasone Sodium Phosphate (Decadron) 20 mg STK-MED ONCE .ROUTE ; Start 10/22 at 08:48; Stop 10/22/16 at 08:49; Status DC Sevoflurane (Ultane) 30 ml STK-MED ONCE IH ; Start 10/22/16 at 08:48; Stop at 08:49; Status DC Diltiazem HCl (Cardizem) 30 mg Q6HRS PO Last administered on 10/27/16 11:27; Start 10/22/16 at 10:00; Stop 10/27/16 at 12:31; Status DC Metoprolol Tartrate 5 mg 5 mg PRN Q6HRS PRN IVP ELEVATED BP, SEE COMMENTS; Start 10/22/16 at 09:45 Albumin Human (Plasmanate) 500 ml @ 125 mls/hr 1X ONCE IV Last administered on 10/22/16 11:20; Start 10/22/16 at 09:45; Stop 10/22/16 at 13:44; Status DC Info (Anti-Coagulation Monitoring By Pharmacy) 1 each PRN DAILY PRN MC SEE COMMENTS; Start 10/22/16 at 15:15; Status UNV Heparin Sodium (Porcine) 5,000 unit Q12HR SQ Last administered on 10/28/16 11: 08; Start 10/22/16 at 21:00; Stop 10/28/16 at 16:02; Status DC Loperamide HCl (Imodium) 2 mg PRN Q15MIN PRN PO DIARRHEA Last administered on 09:27; Start 10/22/16 at 20:00 Insulin Human Regular (Novolin R Vial) 10 unit 1X ONCE IV Last administered on 10/22/16 23:52; Start 10/22/16 at 01:00; Stop 10/22/16 at 23:46; Status DC Insulin Detemir (Levemir) 10 units 1X ONCE SQ Last administered on 10/22/16 23 :53; Start 10/22/16 at 23:45; Stop 10/22/16 at 23:46; Status DC Insulin Human Regular 10 unit 10 unit 1X ONCE IV Last administered on 00:09; Start 10/23/16 at 00:00; Stop 10/23/16 at 00:01; Status DC Sodium Chloride 38.75 meq/Sodium Bicarbonate 75 meq/Sterile Water 1,084.6875 ml @ 150 mls/hr CONT PRN IV SEE I/O RECORD Last administered on 10/24/16 07:12; Start 10/23/16 at 07:30 Albumin Human (Albuminar) 100 ml @ 100 mls/hr TID IV Last administered on 10/24 21:23; Start 10/23/16 at 09:00; Stop 10/24/16 at 21:59; Status DC Heparin Sodium (Porcine) 10,000 unit STK-MED ONCE .ROUTE ; Start 10/23/16 at 07: 55; Stop 10/23/16 at 07:56; Status DC Lidocaine/Sodium Bicarbonate 20 ml 20 ml STK-MED ONCE IJ ; Start 10/23/16 at 07: 55; Stop 10/23/16 at 07:56; Status DC Heparin Sodium/ Sodium Chloride 500 ml @ As Directed STK-MED ONCE .ROUTE ; Start 10/23/16 at 07:55; Stop 10/23/16 at 07:56; Status DC Insulin Detemir (Levemir) 20 units DAILY08 SQ ; Start 10/23/16 at 08:00; Stop at 08:01; Status DC Insulin Aspart (Novolog) 10 units TIDAC SQ Last administered on 10/23/16 17:46 ; Start 10/23/16 at 11:30; Stop 10/24/16 at 11:12; Status DC Insulin Detemir (Levemir) 30 units DAILY08 SQ Last administered on 10/23/16 09 :55; Start 10/23/16 at 08:30; Stop 10/24/16 at 11:12; Status DC Lidocaine/Sodium Bicarbonate (Buffered Lidocaine 1%) 3 ml 1X ONCE IJ Last administered on 10/23/16 08:48; Start 10/23/16 at 08:30; Stop 10/23/16 at 08:31 ; Status DC Heparin Sodium/ Sodium Chloride 60 unit 1X ONCE IV Last administered on 08:48; Start 10/23/16 at 08:30; Stop 10/23/16 at 08:31; Status DC Heparin Sodium (Porcine) 2,500 unit 1X ONCE INT CAT Last administered on 08:48; Start 10/23/16 at 08:30; Stop 10/23/16 at 08:31; Status DC Albuterol/ Ipratropium (Duoneb) 3 ml RTQID NEB Last administered on 10/29/16 12:08; Start 10/24/16 at 12:00 Albuterol/ Ipratropium (Duoneb) 3 ml 1X ONCE NEB Last administered on 09:11; Start 10/24/16 at 09:00; Stop 10/24/16 at 09:01; Status DC Budesonide (Pulmicort) 0.5 mg RTBID NEB Last administered on 10/29/16 07:01; Start 10/24/16 at 10:00 Insulin Aspart (Novolog) 7 units TIDAC SQ Last administered on 10/29/16 12:24 ; Start 10/24/16 at 11:30 Insulin Detemir (Levemir) 20 units DAILY08 SQ Last administered on 10/29/16 09 :26; Start 10/25/16 at 08:00 Potassium Chloride 20 meq 20 meq 1X ONCE PO Last administered on 10/24/16 18: 28; Start 10/24/16 at 12:00; Stop 10/24/16 at 12:01; Status DC Sodium Chloride 1,000 ml @ 1,000 mls/hr Q1H PRN IV hypotension; Start 10/24/16 at 13:00; Stop 10/24/16 at 18:59; Status DC Albumin Human (Albuminar) 200 ml @ 200 mls/hr 1X PRN PRN IV Hypotension; Start 10/24/16 at 14:00; Stop 10/24/16 at 19:59; Status DC Acetaminophen (Tylenol) 500 mg 1X PRN PRN PO MILD PAIN / TEMP; Start 10/24/16 at 14:00; Stop 10/25/16 at 13:59; Status DC Diphenhydramine HCl (Benadryl) 25 mg 1X PRN PRN IV ITCHING; Start 10/24/16 at 14:00; Stop 10/25/16 at 13:59; Status DC Diphenhydramine HCl (Benadryl) 25 mg 1X PRN PRN IV ITCHING; Start 10/24/16 at 14:00; Stop 10/25/16 at 13:59; Status DC Info (PHARMACY MONITORING -- do not chart) 1 each PRN DAILY PRN MC SEE COMMENTS ; Start 10/24/16 at 14:00; Stop 10/25/16 at 13:16; Status DC Potassium Chloride 20 meq 20 meq 1X ONCE PO ; Start 10/24/16 at 18:30; Stop 07/02 at 18:31; Status DC Amino Acids/ Electrolytes (Clinimix E 2.75%-5% Solution) 1,000 ml @ 55 mls/hr [id number] IV Last administered on 10/27/16 00:52; Start 10/25/16 at 12:00; Stop 10/27/16 at 14:10; Status DC Hydralazine HCl 10 mg 10 mg PRN Q4HRS PRN IVP ELEVATED BP, SEE COMMENTS Last administered on 10/27/16 06:05; Start 10/25/16 at 12:45 Sodium Chloride 1,000 ml @ 1,000 mls/hr Q1H PRN IV hypotension; Start 10/25/16 at 13:07; Stop 10/25/16 at 19:06; Status DC Albumin Human (Albuminar) 200 ml @ 200 mls/hr 1X PRN PRN IV Hypotension Last administered on 10/25/16 14:30; Start 10/25/16 at 13:15; Stop 10/25/16 at 19:14 ; Status DC Acetaminophen (Tylenol) 500 mg 1X PRN PRN PO MILD PAIN / TEMP; Start 10/25/16 at 13:15; Stop 10/26/16 at 13:14; Status DC Diphenhydramine HCl (Benadryl) 25 mg 1X PRN PRN IV ITCHING; Start 10/25/16 at 13:15; Stop 10/26/16 at 13:14; Status DC Diphenhydramine HCl (Benadryl) 25 mg 1X PRN PRN IV ITCHING; Start 10/25/16 at 13:15; Stop 10/26/16 at 13:14; Status DC Info (PHARMACY MONITORING -- do not chart) 1 each PRN DAILY PRN MC SEE COMMENTS ; Start 10/25/16 at 13:15 Famotidine (Pepcid) 20 mg QHS IVP Last administered on 10/26/16 21:17; Start 10/26/16 at 21:00; Stop 10/27/16 at 11:20; Status DC Furosemide 40 mg 40 mg [id number] IVP Last administered on 10/29/16 09:11; Start at 12:00 Sodium Chloride 1,000 ml @ 1,000 mls/hr Q1H PRN IV hypotension; Start 10/26/16 at 13:55; Stop 10/26/16 at 19:54; Status DC Sodium Chloride (Iv Sodium Chloride 0.9% 1000ml Bag) 1,000 ml @ 400 mls/hr Q2H30M PRN IV PATENCY; Start 10/26/16 at 13:55; Stop 10/27/16 at 01:54; Status DC Info 1 each 1 each PRN DAILY PRN MC SEE COMMENTS; Start 10/26/16 at 14:00; Status UNV Meropenem/Sodium Chloride (Merrem/Iv Sodium Chloride 0.9% 50ml) 50 ml @ 100 mls /hr Q6HRS IV Last administered on 10/28/16 06:00; Start 10/27/16 at 12:00; Stop 10/28/16 at 09:22; Status DC Metoprolol Tartrate (Lopressor) 25 mg BID PO Last administered on 10/29/16 09: 11; Start 10/27/16 at 12:00 Famotidine (Pepcid) 20 mg QHS PO Last administered on 10/28/16 21:23; Start at 21:00 Diltiazem HCl (Cardizem 24hr Cd) 180 mg [id number] PO Last administered on 17:11; Start 10/27/16 at 17:00 Regadenoson (Lexiscan) 0.4 mg 1X ONCE IV Last administered on 10/28/16 09:18 ; Start 10/28/16 at 07:45; Stop 10/28/16 at 07:46; Status DC Lactobacillus Acidophilus 1 tab 1 tab TIDWMEALS PO Last administered on 12:21; Start 10/28/16 at 12:00 Meropenem 500 mg/ Sodium Chloride 50 ml @ 100 mls/hr Q12HR IV Last administered on 10/29/16 09:09; Start 10/28/16 at 21:00 Sodium Chloride 1,000 ml @ 1,000 mls/hr Q1H PRN IV hypotension; Start 10/28/16 at 09:34; Stop 10/28/16 at 15:33; Status DC Albumin Human (Albuminar) 200 ml @ 200 mls/hr 1X PRN PRN IV Hypotension; Start 10/28/16 at 09:45; Stop 10/28/16 at 15:44; Status DC Acetaminophen (Tylenol) 500 mg 1X PRN PRN PO MILD PAIN / TEMP; Start 10/28/16 at 09:45; Stop 10/28/16 at 16:02; Status DC Diphenhydramine HCl (Benadryl) 25 mg 1X PRN PRN IV ITCHING; Start 10/28/16 at 09:45; Stop 10/28/16 at 16:02; Status DC Diphenhydramine HCl (Benadryl) 25 mg 1X PRN PRN IV ITCHING; Start 10/28/16 at 09:45; Stop 10/28/16 at 16:02; Status DC Sodium Chloride (Normal Saline Flush) 10 ml 1X PRN PRN IV AP catheter pack; Start 10/28/16 at 09:45; Stop 10/28/16 at 16:02; Status DC Sodium Chloride (Normal Saline Flush) 10 ml 1X PRN PRN IV [employer] catheter pack; Start 10/28/16 at 09:45; Stop 10/28/16 at 16:02; Status DC Labetalol HCl 10 mg 10 mg PRN Q1HR PRN IVP SBP > 180; Start 10/28/16 at 09:45; Stop 10/28/16 at 16:02; Status DC Sodium Chloride (Iv Sodium Chloride 0.9% 1000ml Bag) 1,000 ml @ 400 mls/hr Q2H30M PRN IV PATENCY; Start 10/28/16 at 09:34; Stop 10/28/16 at 21:33; Status DC Info 1 each 1 each PRN DAILY PRN MC SEE COMMENTS; Start 10/28/16 at 09:45; Status UNV Sodium Chloride (Iv Sodium Chloride 0.9% 1000ml Bag) 1,000 ml @ 1,000 mls/hr Q1H PRN IV hypotension; Start 10/28/16 at 12:47; Stop 10/28/16 at 18:46; Status UNV Diphenhydramine HCl (Benadryl) 25 mg 1X PRN PRN IV ITCHING; Start 10/28/16 at 13:00; Stop 10/29/16 at 12:59; Status UNV Diphenhydramine HCl (Benadryl) 25 mg 1X PRN PRN IV ITCHING; Start 10/28/16 at 13:00; Stop 10/29/16 at 12:59; Status UNV Sodium Chloride (Normal Saline Flush) 10 ml 1X PRN PRN IV AP catheter pack; Start 10/28/16 at 13:00; Stop 10/29/16 at 12:59; Status UNV Sodium Chloride 10 ml 10 ml 1X PRN PRN IV [employer] catheter pack; Start 10/28/16 at 13:00; Stop 10/29/16 at 12:59; Status UNV Sodium Chloride (Iv Sodium Chloride 0.9% 1000ml Bag) 1,000 ml @ 400 mls/hr Q2H30M PRN IV PATENCY; Start 10/28/16 at 12:47; Stop 10/29/16 at 00:46; Status UNV Info (PHARMACY MONITORING -- do not chart) 1 each PRN DAILY PRN MC SEE COMMENTS ; Start 10/28/16 at 13:00; Status UNV Apixaban (Eliquis) 5 mg BID PO Last administered on 10/29/16t 09:12; Start at 21:00 Active Scripts Active Reported Zofran Odt (Ondansetron) 8 Mg Tab.rapdis 1 Tab PO Q8HRS Colace (Docusate Sodium) 100 Mg Capsule 1 Cap PO BID Hydrocodone-Apap 7.5-325 (Hydrocodone Bit/Acetaminophen) 1 Each Tablet 1 Tab PO Q3HRS PRN Glimepiride 4 Mg Tablet 1 Tab PO BID Glimepiride 2 Mg Tablet 1 Tab PO BID Levemir (Insulin Detemir) 100 Unit/1 Ml Vial 30 Unit SQ HS Vitals/I & O Vital Sign - Last 24 Hours 10/28/16 10/28/16 10/28/16 10/28/16 15:00 15:49 17:11 19:00 Temp 98.0 97.7 98.0 97.7 Pulse 89 93 101 Resp 16 16 B/P 144/89 148/70 136/58 Pulse Ox 99 98 97 O2 Delivery Simple Mask Venturi Mask Nasal Cannula O2 Flow Rate 12.0 4.0 10/28/16 10/28/16 10/28/16 10/28/16 19:40 19:45 20:00 21:24 Pulse 101 B/P 136/58 Pulse Ox 100 100 O2 Delivery Nasal Cannula Nasal Cannula Nasal Cannula O2 Flow Rate 9.0 4.0 4.0 10/28/16 10/29/16 10/29/16 10/29/16 23:41 03:00 07:03 07:50 Temp 98.1 97.9 97.5 98.1 97.9 97.5 Pulse 79 116 93 Resp 20 20 20 B/P 126/47 143/56 142/65 Pulse Ox 94 96 96 96 O2 Delivery Nasal Cannula Nasal Cannula Nasal Cannula Nasal Cannula O2 Flow Rate 4.0 4.0 4.0 4.0 10/29/16 10/29/16 10/29/16 10/29/16 08:15 09:11 10:40 12:08 Temp 97.9 97.9 Pulse 93 81 Resp 20 B/P 142/65 114/39 Pulse Ox 95 O2 Delivery Nasal Cannula Nasal Cannula Nasal Cannula O2 Flow Rate 4.0 4.0 4.0 Intake and Output 10/28/16 10/28/16 10/29/16 15:00 23:00 07:00 Intake Total 360 ml Output Total 900 ml Balance 360 ml -900 ml Problem List Problems Medical Problems: (1) Acute renal failure Status: Acute (2) Atrial fibrillation with RVR Status: Acute (3) Lactic acidosis Status: Acute (4) Severe sepsis Status: Acute (5) Uncontrolled diabetes mellitus Status: Acute Assessment Stable GI-sellers w/o ongoing issues apparent. Plan of Care: Continue current Tx, Mgmt Plan of Care Note Will stand by. PO SCHOFIELD MD Oct 29, 2016 13:56
[2016-10-29 14:38] VITALS: BP 93/54
[2016-10-29] MEDS: DILTIAZEM HCL 180 MG CAP.ER.24H PO SCH (17:31)
[2016-10-29 19:22] VITALS: BP 129/62
[2016-10-29] MEDS: ATORVASTATIN CALCIUM 20 MG TABLET PO SCH (21:36)
[2016-10-29] MEDS: FAMOTIDINE 20 MG TABLET. PO SCH (21:36)
[2016-10-29 23:28] VITALS: BP 124/56
[2016-10-30] VITALS (12 sets, daily range): BP systolic 127–148; BP diastolic 50–67
[2016-10-30 05:04] LABS: BASO % 1 % (0-3); EOS % 2 % (0-3); HEMATOCRIT 26.8 % (39.0-53.0); HEMOGLOBIN 8.8 g/dL (13.0-17.5); LYMPH # 0.9 x10^3/uL (1.0-4.8); LYMPH % 13 % (24-48); MEAN CORPUSCULAR HEMOGLOBIN 28 pg (25-35); MEAN CORPUSCULAR HGB CONC 33 g/dL (31-37); MEAN CORPUSCULAR VOLUME 85 fL (79-100); MONO % 7 % (0-9); NEUT % 77 % (31-73); PLATELET COUNT 184 x10^3/uL (140-400); RED BLOOD COUNT 3.15 x10^6/uL (4.30-5.70); RED CELL DISTRIBUTION WIDTH 14.8 % (11.5-14.5); WHITE BLOOD COUNT 7.1 x10^3/uL (4.0-11.0)
[2016-10-30 05:19] LABS: CALCIUM 8.4 mg/dL (8.5-10.1); CREATININE 3.5 mg/dL (0.7-1.3); GFR 17.4; POTASSIUM 4.6 mmol/L (3.5-5.1)
[2016-10-30] MEDS: INSULIN ASPART 300 UNITS/3 ML INSULN.PEN SQ SCH ×6 (07:30→16:59)
[2016-10-30] MEDS: LACTOBACILLUS ACIDOPH & BULGAR 1 TABLET. PO SCH ×3 (08:00→16:57)
[2016-10-30] MEDS: INSULIN DETEMIR 300 UNITS/3 ML INSULN.PEN. SQ SCH (08:00)
[2016-10-30] MEDS: IPRATRPIUM/ALBUTEROL 0.5/2.5MG 3 ML NEBU. NEB SCH ×4 (08:00→20:32)
[2016-10-30] MEDS ORDERED: IV NORMAL SALINE 1000ML BAG 1,000 ML IV PRN ×2 (08:21→08:30)
[2016-10-30] MEDS ORDERED: DIALYSIS PATIENT. MC PRN (08:30)
[2016-10-30] MEDS ORDERED: ALBUMIN HUMAN 25% 200 ML IV PRN (08:30)
[2016-10-30] MEDS: METOPROLOL TART IMMED RELEASE 25 MG TABLET PO SCH ×2 (09:00→21:06)
[2016-10-30] MEDS: DOCUSATE SODIUM 100 MG CAPSULE PO SCH ×2 (09:00→21:00)
[2016-10-30] MEDS: FUROSEMIDE 40 MG/4 ML VIAL IVP SCH ×2 (09:00→14:00)
--- NOTE | 2016-10-30 09:14 | PDOC ---
Infectious Disease Note Subjective Subjective States ok Hungry Foot ok Some loose stools twice a day ROS ROS GEN: Denies fevers, chills, sweats HEENT: Denies blurred vision, sore throat CV: Denies chest pain RESP: Denies shortness of air, cough GI: Denies n/v/d NEURO: Denies confusion, dizziness MSK: Denies weakness, joint pain/swelling Vital Sign Vital Signs Vital Signs Date Time Temp Pulse Resp B/P Pulse Ox O2 Delivery O2 Flow Rate FiO2 10/30/16 07:15 97.9 82 18 142/67 96 Nasal Cannula 3.5 97.9 Physical Exam PHYSICAL EXAM GENERAL: NAD, Alert, in HD. Looks well HEENT: PERRL, OC/OP - clear NECK: Supple, no JVD, no LN LUNGS: Clear HEART: S1S2, no gallop, no murmur ABD: Soft, NT, no organomegaly, no rebound [place] EXT: No edema, no cyanosis. 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, oriented x 3, no focal neurologic deficit SKIN: No rash IV: RIJ HD Labs Lab Laboratory Tests Test 10/29/16 11:08 10/29/16 16:26 10/30/16 04:31 10/30/16 07:19 Glucose (Fingerstick) 86mg/dL (70-99) 68mg/dL (70-99) 162mg/dL (70-99) White Blood Count 7.1x10^3/uL (4.0-11.0) Red Blood Count 3.15x10^6/uL (4.30-5.70) Hemoglobin 8.8g/dL (13.0-17.5) Hematocrit 26.8% (39.0-53.0) Mean Corpuscular Volume 85fL (79-100) Mean Corpuscular Hemoglobin 28pg (25-35) Mean Corpuscular Hemoglobin Concent 33g/dL (31-37) Red Cell Distribution Width 14.8% (11.5-14.5) Platelet Count 184x10^3/uL (140-400) Neutrophils (%) (Auto) 77% (31-73) Lymphocytes (%) (Auto) 13% (24-48) Monocytes (%) (Auto) 7% (0-9) Eosinophils (%) (Auto) 2% (0-3) Basophils (%) (Auto) 1% (0-3) Neutrophils # (Auto) 5.4x10^3uL (1.8-7.7) Lymphocytes # (Auto) 0.9x10^3/uL (1.0-4.8) Monocytes # (Auto) 0.5x10^3/uL (0.0-1.1) Eosinophils # (Auto) 0.2x10^3/uL (0.0-0.7) Basophils # (Auto) 0.0x10^3/uL (0.0-0.2) Sodium Level 142mmol/L (136-145) Potassium Level 4.6mmol/L (3.5-5.1) Chloride Level 105mmol/L (98-107) Carbon Dioxide Level 29mmol/L (21-32) Anion Gap 8 (6-14) Blood Urea Nitrogen 47mg/dL (8-26) Creatinine 3.5mg/dL (0.7-1.3) Estimated GFR (Cockcroft-Gault) 17.4 Glucose Level 202mg/dL (70-99) Calcium Level 8.4mg/dL (8.5-10.1) Objective Assessment BC + ,Group A strep / repeat cults neg SOA - resolved CKD on HD Extensive left foot infection s/p I and D 10/[address] MSSA/Group A/ Alcaligenes/Bacteroides Septic shock - resolved Lactic acidosis DM Plan Plan of Care D/c Meropenem. F/u sensitivities restart Zosyn - D/w micro this am Repeat Blood cults pending Local wound care F/u labs supportive care CADY REYNA MD Oct 30, 2016 09:14
--- NOTE | 2016-10-30 09:18 | PDOC ---
G I PROGRESS NOTE Subjective Occasional loose stools. Some days, no stool. No real diarrhea. No complaints. Physical Exam Lungs clear. RRR Abdomen soft, not tender nor distended. Review of Relevant I have reviewed the following items jovan (where applicable) has been applied. Labs Laboratory Tests Test 10/28/16 11:07 10/28/16 16:54 10/28/16 21:02 10/29/16 03:43 Glucose (Fingerstick) 227mg/dL (70-99) 83mg/dL (70-99) 75mg/dL (70-99) White Blood Count 7.0x10^3/uL (4.0-11.0) Red Blood Count 3.19x10^6/uL (4.30-5.70) Hemoglobin 9.0g/dL (13.0-17.5) Hematocrit 27.0% (39.0-53.0) Mean Corpuscular Volume 85fL (79-100) Mean Corpuscular Hemoglobin 28pg (25-35) Mean Corpuscular Hemoglobin Concent 33g/dL (31-37) Red Cell Distribution Width 14.7% (11.5-14.5) Platelet Count 175x10^3/uL (140-400) Neutrophils (%) (Auto) 77% (31-73) Lymphocytes (%) (Auto) 14% (24-48) Monocytes (%) (Auto) 6% (0-9) Eosinophils (%) (Auto) 3% (0-3) Basophils (%) (Auto) 1% (0-3) Neutrophils # (Auto) 5.4x10^3uL (1.8-7.7) Lymphocytes # (Auto) 0.9x10^3/uL (1.0-4.8) Monocytes # (Auto) 0.4x10^3/uL (0.0-1.1) Eosinophils # (Auto) 0.2x10^3/uL (0.0-0.7) Basophils # (Auto) 0.0x10^3/uL (0.0-0.2) Sodium Level 143mmol/L (136-145) Potassium Level 3.8mmol/L (3.5-5.1) Chloride Level 106mmol/L (98-107) Carbon Dioxide Level 32mmol/L (21-32) Anion Gap 5 (6-14) Blood Urea Nitrogen 29mg/dL (8-26) Creatinine 2.3mg/dL (0.7-1.3) Estimated GFR (Cockcroft-Gault) 28.2 Glucose Level 81mg/dL (70-99) Calcium Level 8.4mg/dL (8.5-10.1) Hepatitis B Core Total Antibody Negative (Negative) Test 10/29/16 07:58 10/29/16 11:08 10/29/16 16:26 10/30/16 04:31 Glucose (Fingerstick) 74mg/dL (70-99) 86mg/dL (70-99) 68mg/dL (70-99) White Blood Count 7.1x10^3/uL (4.0-11.0) Red Blood Count 3.15x10^6/uL (4.30-5.70) Hemoglobin 8.8g/dL (13.0-17.5) Hematocrit 26.8% (39.0-53.0) Mean Corpuscular Volume 85fL (79-100) Mean Corpuscular Hemoglobin 28pg (25-35) Mean Corpuscular Hemoglobin Concent 33g/dL (31-37) Red Cell Distribution Width 14.8% (11.5-14.5) Platelet Count 184x10^3/uL (140-400) Neutrophils (%) (Auto) 77% (31-73) Lymphocytes (%) (Auto) 13% (24-48) Monocytes (%) (Auto) 7% (0-9) Eosinophils (%) (Auto) 2% (0-3) Basophils (%) (Auto) 1% (0-3) Neutrophils # (Auto) 5.4x10^3uL (1.8-7.7) Lymphocytes # (Auto) 0.9x10^3/uL (1.0-4.8) Monocytes # (Auto) 0.5x10^3/uL (0.0-1.1) Eosinophils # (Auto) 0.2x10^3/uL (0.0-0.7) Basophils # (Auto) 0.0x10^3/uL (0.0-0.2) Sodium Level 142mmol/L (136-145) Potassium Level 4.6mmol/L (3.5-5.1) Chloride Level 105mmol/L (98-107) Carbon Dioxide Level 29mmol/L (21-32) Anion Gap 8 (6-14) Blood Urea Nitrogen 47mg/dL (8-26) Creatinine 3.5mg/dL (0.7-1.3) Estimated GFR (Cockcroft-Gault) 17.4 Glucose Level 202mg/dL (70-99) Calcium Level 8.4mg/dL (8.5-10.1) Test 10/30/16 07:19 Glucose (Fingerstick) 162mg/dL (70-99) Laboratory Tests Test 10/29/16 11:08 10/29/16 16:26 10/30/16 04:31 10/30/16 07:19 Glucose (Fingerstick) 86mg/dL (70-99) 68mg/dL (70-99) 162mg/dL (70-99) White Blood Count 7.1x10^3/uL (4.0-11.0) Red Blood Count 3.15x10^6/uL (4.30-5.70) Hemoglobin 8.8g/dL (13.0-17.5) Hematocrit 26.8% (39.0-53.0) Mean Corpuscular Volume 85fL (79-100) Mean Corpuscular Hemoglobin 28pg (25-35) Mean Corpuscular Hemoglobin Concent 33g/dL (31-37) Red Cell Distribution Width 14.8% (11.5-14.5) Platelet Count 184x10^3/uL (140-400) Neutrophils (%) (Auto) 77% (31-73) Lymphocytes (%) (Auto) 13% (24-48) Monocytes (%) (Auto) 7% (0-9) Eosinophils (%) (Auto) 2% (0-3) Basophils (%) (Auto) 1% (0-3) Neutrophils # (Auto) 5.4x10^3uL (1.8-7.7) Lymphocytes # (Auto) 0.9x10^3/uL (1.0-4.8) Monocytes # (Auto) 0.5x10^3/uL (0.0-1.1) Eosinophils # (Auto) 0.2x10^3/uL (0.0-0.7) Basophils # (Auto) 0.0x10^3/uL (0.0-0.2) Sodium Level 142mmol/L (136-145) Potassium Level 4.6mmol/L (3.5-5.1) Chloride Level 105mmol/L (98-107) Carbon Dioxide Level 29mmol/L (21-32) Anion Gap 8 (6-14) Blood Urea Nitrogen 47mg/dL (8-26) Creatinine 3.5mg/dL (0.7-1.3) Estimated GFR (Cockcroft-Gault) 17.4 Glucose Level 202mg/dL (70-99) Calcium Level 8.4mg/dL (8.5-10.1) Microbiology 10/25/16 Blood Culture - Preliminary, Resulted NO GROWTH AFTER 4 DAYS 10/21/16 Urine Culture - Final, Complete 10/21/16 Urine Culture Result 1 (HERBERT) - Final, Complete 10/22/16 Gram Stain - Final, Complete Medications Current Medications Diltiazem HCl 20 mg 20 mg 1X ONCE IVP Last administered on 10/20/16 13:35; Start 10/20/16 at 13:30; Stop 10/20/16 at 13:31; Status DC Diltiazem HCl 125 mg/Dextrose 125 ml @ 10 mls/hr 1X ONCE IV Last administered on 10/20/16 13:49; Start 10/20/16 at 13:30; Stop 10/20/16 at 19:37; Status DC Sodium Chloride (Iv Sodium Chloride 0.9% 1000ml Bag) 1,000 ml @ 100 mls/hr Q10H IV Last administered on 10/20/16 13:45; Start 10/20/16 at 13:30; Stop at 23:29; Status DC Diltiazem HCl (Cardizem) 20 mg 1X ONCE IVP Last administered on 10/20/16 14:16 ; Start 10/20/16 at 14:00; Stop 10/20/16 at 14:01; Status DC Vancomycin HCl (Vanco Per Pharmacy) 1 each PRN DAILY PRN MC SEE COMMENTS Last administered on 10/20/16 16:49; Start 10/20/16 at 14:45; Stop 10/21/16 at 07:42; Status DC Piperacillin Sod/ Tazobactam Sod 1 each 1 each PRN DAILY PRN MC SEE COMMENTS; Start 10/20/16 at 14:45; Stop 10/21/16 at 07:49; Status DC Vancomycin HCl 2 gm/Sodium Chloride 500 ml @ 250 mls/hr 1X ONCE IV Last administered on 10/20/16 15:45; Start 10/20/16 at 15:00; Stop 10/20/16 at 16:59; Status DC Piperacillin Sod/ Tazobactam Sod/ Sodium Chloride (Zosyn/Iv Sodium Chloride 0.9 % 50ml) 50 ml @ 100 mls/hr 1X ONCE IV Last administered on 10/20/16 15:04; Start 10/20/16 at 15:00; Stop 10/20/16 at 15:29; Status DC Ondansetron HCl (Zofran) 4 mg PRN Q8HRS PRN IV NAUSEA/VOMITING; Start 10/20/16 at 15:00; Stop 10/20/16 at 15:16; Status DC Fentanyl Citrate 50 mcg 50 mcg PRN Q2HR PRN IV PAIN; Start 10/20/16 at 15:00; Stop 10/21/16 at 14:59; Status DC Sodium Chloride (Iv Sodium Chloride 0.9% 1000ml Bag) 1,000 ml @ 100 mls/hr Q10H IV Last administered on 10/21/16 11:30; Start 10/20/16 at 15:30; Stop at 15:29; Status DC Acetaminophen (Tylenol) 650 mg PRN Q4HRS PRN PO FEVER; Start 10/20/16 at 15:00; Stop 10/21/16 at 14:59; Status DC Ondansetron HCl (Zofran) 4 mg PRN Q6HRS PRN IV NAUSEA/VOMITING; Start 10/20/16 at 15:12 Insulin Aspart (Novolog) 0-9 UNITS TIDWMEALS SQ Last administered on 10/28/16 11:33; Start 10/20/16 at 17:00 Dextrose 12.5 gm PRN Q15MIN PRN IV SEE COMMENTS Last administered on 10/26/16 23:42; Start 10/20/16 at 15:15 Docusate Sodium (Colace) 100 mg BID PO Last administered on 10/26/16 21:17; Start 10/20/16 at 21:00 Glimepiride (Amaryl) 2 mg BID PO ; Start 10/20/16 at 21:00; Status UNV Acetaminophen/ Hydrocodone Bitart (Lortab 7.5/325) 1 tab PRN Q3HRS PRN PO PAIN Last administered on 10/26/16 15:27; Start 10/20/16 at 15:15 Glimepiride (Amaryl) 4 mg BIDWMEALS PO Last administered on 10/20/16 17:32; Start 10/20/16 at 17:00; Stop 10/21/16 at 14:52; Status DC Insulin Detemir (Levemir) 30 units QHS SQ Last administered on 10/20/16 21:03; Start 10/20/16 at 21:00; Stop 10/21/16 at 14:52; Status DC Ondansetron HCl 4 mg 4 mg Q8HRS PO Last administered on 10/21/16 06:17; Start 10/20/16 at 22:00; Stop 10/21/16 at 17:24; Status DC Sodium Chloride 500 ml @ 500 mls/hr 1X ONCE IV ; Start 10/20/16 at 15:30; Stop 10/20/16 at 16:29; Status DC Piperacillin Sod/ Tazobactam Sod 2.25 gm/Sodium Chloride 50 ml @ 100 mls/hr Q6HRS IV Last administered on 10/27/16 06:03; Start 10/21/16 at 00:00; Stop at 07:43; Status DC Vancomycin HCl/ Sodium Chloride (Iv Sodium Chloride 0.9% 250ml) 250 ml @ 167 mls/hr Q24H IV ; Start 10/21/16 at 16:00; Stop 10/21/16 at 16:00; Status DC Vancomycin HCl 1 each 1 each 1X ONCE MC ; Start 10/22/16 at 15:30; Stop 10/22/16 at 15:31; Status Cancel Dopamine HCl/ Dextrose 250 ml @ 13.183 mls/ hr CONT PRN IV SEE I/O RECORD Last administered on 10/20/16 20:38; Start 10/20/16 at 19:30; Stop 10/28/16 at 15 :26; Status DC Digoxin (Lanoxin) 250 mcg 1X ONCE IV Last administered on 10/20/16 21:02; Start 10/20/16 at 20:45; Stop 10/20/16 at 20:46; Status DC Digoxin (Lanoxin) 250 mcg 1X ONCE IV Last administered on 10/21/16 01:48; Start 10/21/16 at 02:00; Stop 10/21/16 at 02:01; Status DC Digoxin 250 mcg 250 mcg 1X ONCE IV Last administered on 10/21/16 04:12; Start 10/21/16 at 04:15; Stop 10/21/16 at 04:16; Status DC Diltiazem HCl 125 mg/Dextrose 125 ml @ 0 mls/hr CONT PRN IV SEE I/O RECORD Last administered on 10/21/16 23:03; Start 10/21/16 at 04:15; Stop 10/22/16 at 09: 44; Status DC Linezolid 300 ml @ 300 mls/hr Q12HR IV Last administered on 10/22/16 20:18; Start 10/21/16 at 09:00; Stop 10/23/16 at 07:26; Status DC Magnesium Sulfate/ Dextrose 50 ml @ 25 mls/hr PRN DAILY PRN IV for Mag < 1.7 on am labs Last administered on 10/22/16 15:15; Start 10/21/16 at 09:45 Albumin Human (Plasmanate) 500 ml @ 125 mls/hr 1X ONCE IV Last administered on 10/21/16 10:25; Start 10/21/16 at 09:45; Stop 10/21/16 at 13:44; Status DC Ondansetron HCl (Zofran) 4 mg PRN Q6HRS PRN IV Nausea; Start 10/21/16 at 10:00; Stop 10/22/16 at 09:59; Status DC Fentanyl Citrate (Fentanyl 2ml Vial) 25 mcg PRN Q5MIN PRN IV MILD PAIN; Start 10/21/16 at 10:00; Stop 10/22/16 at 09:59; Status DC Fentanyl Citrate (Fentanyl 2ml Vial) 50 mcg PRN Q5MIN PRN IV MODERATE PAIN; Start 10/21/16 at 10:00; Stop 10/22/16 at 09:59; Status DC Morphine Sulfate 1 mg 1 mg PRN Q10MIN PRN IV SEVERE PAIN; Start 10/21/16 at 10: 00; Stop 10/22/16 at 09:59; Status DC Lactated Ringer's (Iv Lactated Ringers) 1,000 ml @ 30 mls/hr Q24H IV ; Start at 09:50; Stop 10/21/16 at 21:49; Status DC Lidocaine HCl 2 ml 1X PRN PRN ID IV START; Start 10/21/16 at 10:00; Stop at 09:59; Status DC Hydromorphone HCl (Dilaudid) 0.5 mg PRN Q10MIN PRN IV SEV PAIN,Second choice; Start 10/21/16 at 10:00; Stop 10/22/16 at 09:59; Status DC Prochlorperazine Edisylate 5 mg 5 mg PACU PRN PRN IV NAUSEA; Start 10/21/16 at 10:00; Stop 10/22/16 at 09:59; Status DC Sodium Chloride (Iv Sodium Chloride 0.9% 500ml Bag) 500 ml @ 0 mls/hr PRN QID PRN IV UO< 30cc/hr over previous 6hrs; Start 10/21/16 at 10:15; Stop 10/21/16 at 17:27; Status DC Ondansetron HCl (Zofran) 4 mg PRN Q6HRS PRN IV Nausea; Start 10/21/16 at 11:30; Stop 10/22/16 at 11:29; Status DC Morphine Sulfate 1 mg 1 mg PRN Q10MIN PRN IV SEVERE PAIN; Start 10/21/16 at 11: 30; Stop 10/22/16 at 11:29; Status DC Lactated Ringer's (Iv Lactated Ringers) 1,000 ml @ 0 mls/hr Q0M IV ; Start 10/21 at 11:19; Stop 10/21/16 at 23:18; Status DC Lidocaine HCl 2 ml 1X PRN PRN ID IV START; Start 10/21/16 at 11:30; Stop at 11:29; Status DC Hydromorphone HCl (Dilaudid) 0.5 mg PRN Q10MIN PRN IV SEV PAIN,Second choice; Start 10/21/16 at 11:30; Stop 10/22/16 at 11:29; Status DC Prochlorperazine Edisylate (Compazine) 5 mg PACU PRN PRN IV NAUSEA; Start at 11:30; Stop 10/22/16 at 11:29; Status DC Atorvastatin Calcium (Lipitor) 20 mg QHS PO Last administered on 10/29/16 21: 36; Start 10/21/16 at 21:00 Aspirin (Ecotrin) 81 mg DAILYWBKFT PO Last administered on 10/29/16 09:08; Start 10/21/16 at 12:00 Ondansetron HCl (Zofran) 4 mg PRN Q6HRS PRN IV Nausea; Start 10/22/16 at 07:00; Stop 10/23/16 at 06:59; Status DC Morphine Sulfate 1 mg 1 mg PRN Q10MIN PRN IV SEVERE PAIN; Start 10/22/16 at 07: 00; Stop 10/23/16 at 06:59; Status DC Lactated Ringer's (Iv Lactated Ringers) 1,000 ml @ 30 mls/hr Q24H IV ; Start at 07:00; Stop 10/22/16 at 15:07; Status DC Lidocaine HCl 2 ml 1X PRN PRN ID IV START; Start 10/22/16 at 07:00; Stop at 06:59; Status DC Hydromorphone HCl (Dilaudid) 0.5 mg PRN Q10MIN PRN IV SEVERE PAIN, Second choice; Start 10/22/16 at 07:00; Stop 10/23/16 at 06:59; Status DC Prochlorperazine Edisylate (Compazine) 5 mg PACU PRN PRN IV NAUSEA; Start at 07:00; Stop 10/23/16 at 06:59; Status DC Aspirin (Ecotrin) 81 mg DAILYWBKFT PO ; Start 10/22/16 at 08:00; Status UNV Insulin Detemir (Levemir) 20 units QHS SQ ; Start 10/21/16 at 21:00; Stop at 08:29; Status DC Ondansetron HCl 4 mg 4 mg PRN Q8HRS PRN PO NAUSEA; Start 10/22/16 at 14:00 Sodium Chloride 1,000 ml @ 175 mls/hr Q5H43M IV Last administered on 05:30; Start 10/21/16 at 18:00; Stop 10/23/16 at 07:20; Status DC Dextrose 1,000 ml @ 75 mls/hr [id number] IV Last administered on 10/22/16 04:54; Start 10/22/16 at 04:45; Stop 10/22/16 at 15:05; Status DC Bupivacaine HCl (Sensorcaine Mpf 0.5%) 30 ml STK-MED ONCE .ROUTE ; Start at 06:45; Stop 10/22/16 at 06:46; Status DC Lidocaine HCl 20 ml 20 ml STK-MED ONCE .ROUTE ; Start 10/22/16 at 06:46; Stop 10/22/16 at 06:47; Status DC Propofol (Diprivan) 20 ml @ As Directed STK-MED ONCE IV ; Start 10/22/16 at 08:02 ; Stop 10/22/16 at 08:03; Status DC Lidocaine HCl 100 mg STK-MED ONCE .ROUTE ; Start 10/22/16 at 08:02; Stop 10/22/16 at 08:03; Status DC Ondansetron HCl (Zofran) 4 mg STK-MED ONCE .ROUTE ; Start 10/22/16 at 08:31; Stop 10/22/16 at 08:32; Status DC Phenylephrine HCl 1 mg STK-MED ONCE IV ; Start 10/22/16 at 08:31; Stop 10/22/16 at 08:32; Status DC Dexamethasone Sodium Phosphate (Decadron) 20 mg STK-MED ONCE .ROUTE ; Start 10/22 at 08:48; Stop 10/22/16 at 08:49; Status DC Sevoflurane (Ultane) 30 ml STK-MED ONCE IH ; Start 10/22/16 at 08:48; Stop at 08:49; Status DC Diltiazem HCl (Cardizem) 30 mg Q6HRS PO Last administered on 10/27/16 11:27; Start 10/22/16 at 10:00; Stop 10/27/16 at 12:31; Status DC Metoprolol Tartrate 5 mg 5 mg PRN Q6HRS PRN IVP ELEVATED BP, SEE COMMENTS; Start 10/22/16 at 09:45 Albumin Human (Plasmanate) 500 ml @ 125 mls/hr 1X ONCE IV Last administered on 10/22/16 11:20; Start 10/22/16 at 09:45; Stop 10/22/16 at 13:44; Status DC Info (Anti-Coagulation Monitoring By Pharmacy) 1 each PRN DAILY PRN MC SEE COMMENTS; Start 10/22/16 at 15:15; Status UNV Heparin Sodium (Porcine) 5,000 unit Q12HR SQ Last administered on 10/28/16 11: 08; Start 10/22/16 at 21:00; Stop 10/28/16 at 16:02; Status DC Loperamide HCl (Imodium) 2 mg PRN Q15MIN PRN PO DIARRHEA Last administered on 09:27; Start 10/22/16 at 20:00 Insulin Human Regular (Novolin R Vial) 10 unit 1X ONCE IV Last administered on 10/22/16 23:52; Start 10/22/16 at 01:00; Stop 10/22/16 at 23:46; Status DC Insulin Detemir (Levemir) 10 units 1X ONCE SQ Last administered on 10/22/16 23 :53; Start 10/22/16 at 23:45; Stop 10/22/16 at 23:46; Status DC Insulin Human Regular 10 unit 10 unit 1X ONCE IV Last administered on 00:09; Start 10/23/16 at 00:00; Stop 10/23/16 at 00:01; Status DC Sodium Chloride 38.75 meq/Sodium Bicarbonate 75 meq/Sterile Water 1,084.6875 ml @ 150 mls/hr CONT PRN IV SEE I/O RECORD Last administered on 10/24/16 07:12; Start 10/23/16 at 07:30 Albumin Human (Albuminar) 100 ml @ 100 mls/hr TID IV Last administered on 10/24 21:23; Start 10/23/16 at 09:00; Stop 10/24/16 at 21:59; Status DC Heparin Sodium (Porcine) 10,000 unit STK-MED ONCE .ROUTE ; Start 10/23/16 at 07: 55; Stop 10/23/16 at 07:56; Status DC Lidocaine/Sodium Bicarbonate 20 ml 20 ml STK-MED ONCE IJ ; Start 10/23/16 at 07: 55; Stop 10/23/16 at 07:56; Status DC Heparin Sodium/ Sodium Chloride 500 ml @ As Directed STK-MED ONCE .ROUTE ; Start 10/23/16 at 07:55; Stop 10/23/16 at 07:56; Status DC Insulin Detemir (Levemir) 20 units [id number] SQ ; Start 10/23/16 at 08:00; Stop at 08:01; Status DC Insulin Aspart (Novolog) 10 units TIDAC SQ Last administered on 10/23/16 17:46 ; Start 10/23/16 at 11:30; Stop 10/24/16 at 11:12; Status DC Insulin Detemir (Levemir) 30 units DAILY08 SQ Last administered on 10/23/16 09 :55; Start 10/23/16 at 08:30; Stop 10/24/16 at 11:12; Status DC Lidocaine/Sodium Bicarbonate (Buffered Lidocaine 1%) 3 ml 1X ONCE IJ Last administered on 10/23/16 08:48; Start 10/23/16 at 08:30; Stop 10/23/16 at 08:31 ; Status DC Heparin Sodium/ Sodium Chloride 60 unit 1X ONCE IV Last administered on 08:48; Start 10/23/16 at 08:30; Stop 10/23/16 at 08:31; Status DC Heparin Sodium (Porcine) 2,500 unit 1X ONCE INT CAT Last administered on 08:48; Start 10/23/16 at 08:30; Stop 10/23/16 at 08:31; Status DC Albuterol/ Ipratropium (Duoneb) 3 ml RTQID NEB Last administered on 10/29/16 20:15; Start 10/24/16 at 12:00 Albuterol/ Ipratropium (Duoneb) 3 ml 1X ONCE NEB Last administered on 09:11; Start 10/24/16 at 09:00; Stop 10/24/16 at 09:01; Status DC Budesonide (Pulmicort) 0.5 mg RTBID NEB Last administered on 10/29/16 20:15; Start 10/24/16 at 10:00 Insulin Aspart (Novolog) 7 units TIDAC SQ Last administered on 10/29/16 12:24 ; Start 10/24/16 at 11:30 Insulin Detemir (Levemir) 20 units [id number] SQ Last administered on 10/29/16 09 :26; Start 10/25/16 at 08:00 Potassium Chloride 20 meq 20 meq 1X ONCE PO Last administered on 10/24/16 18: 28; Start 10/24/16 at 12:00; Stop 10/24/16 at 12:01; Status DC Sodium Chloride 1,000 ml @ 1,000 mls/hr Q1H PRN IV hypotension; Start 10/24/16 at 13:00; Stop 10/24/16 at 18:59; Status DC Albumin Human (Albuminar) 200 ml @ 200 mls/hr 1X PRN PRN IV Hypotension; Start 10/24/16 at 14:00; Stop 10/24/16 at 19:59; Status DC Acetaminophen (Tylenol) 500 mg 1X PRN PRN PO MILD PAIN / TEMP; Start 10/24/16 at 14:00; Stop 10/25/16 at 13:59; Status DC Diphenhydramine HCl (Benadryl) 25 mg 1X PRN PRN IV ITCHING; Start 10/24/16 at 14:00; Stop 10/25/16 at 13:59; Status DC Diphenhydramine HCl (Benadryl) 25 mg 1X PRN PRN IV ITCHING; Start 10/24/16 at 14:00; Stop 10/25/16 at 13:59; Status DC Info (PHARMACY MONITORING -- do not chart) 1 each PRN DAILY PRN MC SEE COMMENTS ; Start 10/24/16 at 14:00; Stop 10/25/16 at 13:16; Status DC Potassium Chloride 20 meq 20 meq 1X ONCE PO ; Start 10/24/16 at 18:30; Stop 07/02 at 18:31; Status DC Amino Acids/ Electrolytes (Clinimix E 2.75%-5% Solution) 1,000 ml @ 55 mls/hr [id number] IV Last administered on 10/27/16 00:52; Start 10/25/16 at 12:00; Stop 10/27/16 at 14:10; Status DC Hydralazine HCl 10 mg 10 mg PRN Q4HRS PRN IVP ELEVATED BP, SEE COMMENTS Last administered on 10/27/16 06:05; Start 10/25/16 at 12:45 Sodium Chloride 1,000 ml @ 1,000 mls/hr Q1H PRN IV hypotension; Start 10/25/16 at 13:07; Stop 10/25/16 at 19:06; Status DC Albumin Human (Albuminar) 200 ml @ 200 mls/hr 1X PRN PRN IV Hypotension Last administered on 10/25/16 14:30; Start 10/25/16 at 13:15; Stop 10/25/16 at 19:14 ; Status DC Acetaminophen (Tylenol) 500 mg 1X PRN PRN PO MILD PAIN / TEMP; Start 10/25/16 at 13:15; Stop 10/26/16 at 13:14; Status DC Diphenhydramine HCl (Benadryl) 25 mg 1X PRN PRN IV ITCHING; Start 10/25/16 at 13:15; Stop 10/26/16 at 13:14; Status DC Diphenhydramine HCl (Benadryl) 25 mg 1X PRN PRN IV ITCHING; Start 10/25/16 at 13:15; Stop 10/26/16 at 13:14; Status DC Info (PHARMACY MONITORING -- do not chart) 1 each PRN DAILY PRN MC SEE COMMENTS ; Start 10/25/16 at 13:15 Famotidine (Pepcid) 20 mg QHS IVP Last administered on 10/26/16 21:17; Start 10/26/16 at 21:00; Stop 10/27/16 at 11:20; Status DC Furosemide 40 mg 40 mg [id number] IVP Last administered on 10/29/16 09:11; Start at 12:00 Sodium Chloride 1,000 ml @ 1,000 mls/hr Q1H PRN IV hypotension; Start 10/26/16 at 13:55; Stop 10/26/16 at 19:54; Status DC Sodium Chloride (Iv Sodium Chloride 0.9% 1000ml Bag) 1,000 ml @ 400 mls/hr Q2H30M PRN IV PATENCY; Start 10/26/16 at 13:55; Stop 10/27/16 at 01:54; Status DC Info 1 each 1 each PRN DAILY PRN MC SEE COMMENTS; Start 10/26/16 at 14:00; Status UNV Meropenem/Sodium Chloride (Merrem/Iv Sodium Chloride 0.9% 50ml) 50 ml @ 100 mls /hr Q6HRS IV Last administered on 10/28/16 06:00; Start 10/27/16 at 12:00; Stop 10/28/16 at 09:22; Status DC Metoprolol Tartrate (Lopressor) 25 mg BID PO Last administered on 10/29/16 21: 37; Start 10/27/16 at 12:00 Famotidine (Pepcid) 20 mg QHS PO Last administered on 10/29/16 21:36; Start at 21:00 Diltiazem HCl (Cardizem 24hr Cd) 180 mg [id number] PO Last administered on 17:31; Start 10/27/16 at 17:00 Regadenoson (Lexiscan) 0.4 mg 1X ONCE IV Last administered on 10/28/16 09:18 ; Start 10/28/16 at 07:45; Stop 10/28/16 at 07:46; Status DC Lactobacillus Acidophilus 1 tab 1 tab TIDWMEALS PO Last administered on 17:28; Start 10/28/16 at 12:00 Meropenem 500 mg/ Sodium Chloride 50 ml @ 100 mls/hr Q12HR IV Last administered on 10/29/16 21:36; Start 10/28/16 at 21:00; Stop 10/30/16 at 09:05 ; Status DC Sodium Chloride 1,000 ml @ 1,000 mls/hr Q1H PRN IV hypotension; Start 10/28/16 at 09:34; Stop 10/28/16 at 15:33; Status DC Albumin Human (Albuminar) 200 ml @ 200 mls/hr 1X PRN PRN IV Hypotension; Start 10/28/16 at 09:45; Stop 10/28/16 at 15:44; Status DC Acetaminophen (Tylenol) 500 mg 1X PRN PRN PO MILD PAIN / TEMP; Start 10/28/16 at 09:45; Stop 10/28/16 at 16:02; Status DC Diphenhydramine HCl (Benadryl) 25 mg 1X PRN PRN IV ITCHING; Start 10/28/16 at 09:45; Stop 10/28/16 at 16:02; Status DC Diphenhydramine HCl (Benadryl) 25 mg 1X PRN PRN IV ITCHING; Start 10/28/16 at 09:45; Stop 10/28/16 at 16:02; Status DC Sodium Chloride (Normal Saline Flush) 10 ml 1X PRN PRN IV AP catheter pack; Start 10/28/16 at 09:45; Stop 10/28/16 at 16:02; Status DC Sodium Chloride (Normal Saline Flush) 10 ml 1X PRN PRN IV HANDBAG FRAMER catheter pack; Start 10/28/16 at 09:45; Stop 10/28/16 at 16:02; Status DC Labetalol HCl 10 mg 10 mg PRN Q1HR PRN IVP SBP > 180; Start 10/28/16 at 09:45; Stop 10/28/16 at 16:02; Status DC Sodium Chloride (Iv Sodium Chloride 0.9% 1000ml Bag) 1,000 ml @ 400 mls/hr Q2H30M PRN IV PATENCY; Start 10/28/16 at 09:34; Stop 10/28/16 at 21:33; Status DC Info 1 each 1 each PRN DAILY PRN MC SEE COMMENTS; Start 10/28/16 at 09:45; Status UNV Sodium Chloride (Iv Sodium Chloride 0.9% 1000ml Bag) 1,000 ml @ 1,000 mls/hr Q1H PRN IV hypotension; Start 10/28/16 at 12:47; Stop 10/28/16 at 18:46; Status UNV Diphenhydramine HCl (Benadryl) 25 mg 1X PRN PRN IV ITCHING; Start 10/28/16 at 13:00; Stop 10/29/16 at 12:59; Status UNV Diphenhydramine HCl (Benadryl) 25 mg 1X PRN PRN IV ITCHING; Start 10/28/16 at 13:00; Stop 10/29/16 at 12:59; Status UNV Sodium Chloride (Normal Saline Flush) 10 ml 1X PRN PRN IV AP catheter pack; Start 10/28/16 at 13:00; Stop 10/29/16 at 12:59; Status UNV Sodium Chloride 10 ml 10 ml 1X PRN PRN IV HANDBAG FRAMER catheter pack; Start 10/28/16 at 13:00; Stop 10/29/16 at 12:59; Status UNV Sodium Chloride (Iv Sodium Chloride 0.9% 1000ml Bag) 1,000 ml @ 400 mls/hr Q2H30M PRN IV PATENCY; Start 10/28/16 at 12:47; Stop 10/29/16 at 00:46; Status UNV Info (PHARMACY MONITORING -- do not chart) 1 each PRN DAILY PRN MC SEE COMMENTS ; Start 10/28/16 at 13:00; Status UNV Apixaban 5 mg 5 mg BID PO Last administered on 10/29/16t 09:12; Start 10/28/16 at 21:00 Sodium Chloride 1,000 ml @ 1,000 mls/hr Q1H PRN IV hypotension; Start 10/30/16 at 08:30; Stop 10/30/16 at 15:00 Albumin Human 200 ml @ 200 mls/hr 1X PRN PRN IV Hypotension; Start 10/30/16 at 08:30; Stop 10/30/16 at 14:29 Sodium Chloride (Iv Sodium Chloride 0.9% 1000ml Bag) 1,000 ml @ 400 mls/hr Q2H30M PRN IV PATENCY; Start 10/30/16 at 08:21; Stop 10/30/16 at 16:00 Info 1 each 1 each PRN DAILY PRN MC SEE COMMENTS; Start 10/30/16 at 08:30; Status UNV Piperacillin Sod/ Tazobactam Sod/ Sodium Chloride (Zosyn/Iv Sodium Chloride 0.9 % 50ml) 50 ml @ 100 mls/hr Q6HRS IV ; Start 10/30/16 at 12:00 Active Scripts Active Reported Zofran Odt (Ondansetron) 8 Mg Tab.rapdis 1 Tab PO Q8HRS Colace (Docusate Sodium) 100 Mg Capsule 1 Cap PO BID Hydrocodone-Apap 7.5-325 (Hydrocodone Bit/Acetaminophen) 1 Each Tablet 1 Tab PO Q3HRS PRN Glimepiride 4 Mg Tablet 1 Tab PO BID Glimepiride 2 Mg Tablet 1 Tab PO BID Levemir (Insulin Detemir) 100 Unit/1 Ml Vial 30 Unit SQ HS Vitals/I & O Vital Sign - Last 24 Hours 10/29/16 10/29/16 10/29/16 10/29/16 10:40 12:08 14:38 15:18 Temp 97.9 96.2 97.9 96.2 Pulse 81 89 Resp 20 20 B/P 114/39 93/54 Pulse Ox 95 98 O2 Delivery Nasal Cannula Nasal Cannula Nasal Cannula Nasal Cannula O2 Flow Rate 4.0 4.0 4.0 4.0 10/29/16 10/29/16 10/29/16 10/29/16 16:30 17:31 19:22 20:00 Temp 97.7 97.7 Pulse 85 89 Resp 18 B/P 143/59 129/62 Pulse Ox 97 91 O2 Delivery Nasal Cannula Room Air Nasal Cannula O2 Flow Rate 2.0 4.0 10/29/16 10/29/16 10/29/16 10/30/16 20:17 21:37 23:28 03:07 Temp 97.7 98.8 97.7 98.8 Pulse 89 61 82 Resp 18 18 B/P 126/57 124/56 145/65 Pulse Ox 91 94 97 O2 Delivery Room Air Nasal Cannula Nasal Cannula O2 Flow Rate 3.5 3.0 10/30/16 07:15 Temp 97.9 97.9 Pulse 82 Resp 18 B/P 142/67 Pulse Ox 96 O2 Delivery Nasal Cannula O2 Flow Rate 3.5 Intake and Output 10/29/16 10/29/16 10/30/16 15:00 23:00 07:00 Intake Total 540 ml 410 ml 0 ml Output Total 550 ml Balance 540 ml -140 ml 0 ml Problem List Problems Medical Problems: (1) Acute renal failure Status: Acute (2) Atrial fibrillation with RVR Status: Acute (3) Lactic acidosis Status: Acute (4) Severe sepsis Status: Acute (5) Uncontrolled diabetes mellitus Status: Acute Assessment Stable from GI standpoint; have no objections to discharge at your discretion. Plan of Care: Continue current Tx, Mgmt Plan of Care Note Dr. Hayes available this weekend if needed. PO SCHOFIELD MD Oct 30, 2016 09:18
--- NOTE | 2016-10-30 10:00 | PDOC ---
PULMONARY PROGRESS NOTES Subjective Feels better on N/C 02, no cough, no pain Comments Vitals Vital Signs Date Time Temp Pulse Resp B/P Pulse Ox O2 Delivery O2 Flow Rate FiO2 10/30/16 07:15 97.9 82 18 142/67 96 Nasal Cannula 3.5 97.9 General: Alert Lungs: Clear Cardiovascular: S1, S2 Abdomen: Soft, Non-tender Neuro Exam: Alert, Oriented Extremities: Other (1+edema) Skin: Warm Labs Laboratory Tests Test 10/28/16 11:07 10/28/16 16:54 10/28/16 21:02 10/29/16 03:43 Glucose (Fingerstick) 227mg/dL (70-99) 83mg/dL (70-99) 75mg/dL (70-99) White Blood Count 7.0x10^3/uL (4.0-11.0) Red Blood Count 3.19x10^6/uL (4.30-5.70) Hemoglobin 9.0g/dL (13.0-17.5) Hematocrit 27.0% (39.0-53.0) Mean Corpuscular Volume 85fL (79-100) Mean Corpuscular Hemoglobin 28pg (25-35) Mean Corpuscular Hemoglobin Concent 33g/dL (31-37) Red Cell Distribution Width 14.7% (11.5-14.5) Platelet Count 175x10^3/uL (140-400) Neutrophils (%) (Auto) 77% (31-73) Lymphocytes (%) (Auto) 14% (24-48) Monocytes (%) (Auto) 6% (0-9) Eosinophils (%) (Auto) 3% (0-3) Basophils (%) (Auto) 1% (0-3) Neutrophils # (Auto) 5.4x10^3uL (1.8-7.7) Lymphocytes # (Auto) 0.9x10^3/uL (1.0-4.8) Monocytes # (Auto) 0.4x10^3/uL (0.0-1.1) Eosinophils # (Auto) 0.2x10^3/uL (0.0-0.7) Basophils # (Auto) 0.0x10^3/uL (0.0-0.2) Sodium Level 143mmol/L (136-145) Potassium Level 3.8mmol/L (3.5-5.1) Chloride Level 106mmol/L (98-107) Carbon Dioxide Level 32mmol/L (21-32) Anion Gap 5 (6-14) Blood Urea Nitrogen 29mg/dL (8-26) Creatinine 2.3mg/dL (0.7-1.3) Estimated GFR (Cockcroft-Gault) 28.2 Glucose Level 81mg/dL (70-99) Calcium Level 8.4mg/dL (8.5-10.1) Hepatitis B Core Total Antibody Negative (Negative) Test 10/29/16 07:58 10/29/16 11:08 10/29/16 16:26 10/30/16 04:31 Glucose (Fingerstick) 74mg/dL (70-99) 86mg/dL (70-99) 68mg/dL (70-99) White Blood Count 7.1x10^3/uL (4.0-11.0) Red Blood Count 3.15x10^6/uL (4.30-5.70) Hemoglobin 8.8g/dL (13.0-17.5) Hematocrit 26.8% (39.0-53.0) Mean Corpuscular Volume 85fL (79-100) Mean Corpuscular Hemoglobin 28pg (25-35) Mean Corpuscular Hemoglobin Concent 33g/dL (31-37) Red Cell Distribution Width 14.8% (11.5-14.5) Platelet Count 184x10^3/uL (140-400) Neutrophils (%) (Auto) 77% (31-73) Lymphocytes (%) (Auto) 13% (24-48) Monocytes (%) (Auto) 7% (0-9) Eosinophils (%) (Auto) 2% (0-3) Basophils (%) (Auto) 1% (0-3) Neutrophils # (Auto) 5.4x10^3uL (1.8-7.7) Lymphocytes # (Auto) 0.9x10^3/uL (1.0-4.8) Monocytes # (Auto) 0.5x10^3/uL (0.0-1.1) Eosinophils # (Auto) 0.2x10^3/uL (0.0-0.7) Basophils # (Auto) 0.0x10^3/uL (0.0-0.2) Sodium Level 142mmol/L (136-145) Potassium Level 4.6mmol/L (3.5-5.1) Chloride Level 105mmol/L (98-107) Carbon Dioxide Level 29mmol/L (21-32) Anion Gap 8 (6-14) Blood Urea Nitrogen 47mg/dL (8-26) Creatinine 3.5mg/dL (0.7-1.3) Estimated GFR (Cockcroft-Gault) 17.4 Glucose Level 202mg/dL (70-99) Calcium Level 8.4mg/dL (8.5-10.1) Test 10/30/16 07:19 Glucose (Fingerstick) 162mg/dL (70-99) Laboratory Tests Test 10/29/16 11:08 10/29/16 16:26 10/30/16 04:31 10/30/16 07:19 Glucose (Fingerstick) 86mg/dL (70-99) 68mg/dL (70-99) 162mg/dL (70-99) White Blood Count 7.1x10^3/uL (4.0-11.0) Red Blood Count 3.15x10^6/uL (4.30-5.70) Hemoglobin 8.8g/dL (13.0-17.5) Hematocrit 26.8% (39.0-53.0) Mean Corpuscular Volume 85fL (79-100) Mean Corpuscular Hemoglobin 28pg (25-35) Mean Corpuscular Hemoglobin Concent 33g/dL (31-37) Red Cell Distribution Width 14.8% (11.5-14.5) Platelet Count 184x10^3/uL (140-400) Neutrophils (%) (Auto) 77% (31-73) Lymphocytes (%) (Auto) 13% (24-48) Monocytes (%) (Auto) 7% (0-9) Eosinophils (%) (Auto) 2% (0-3) Basophils (%) (Auto) 1% (0-3) Neutrophils # (Auto) 5.4x10^3uL (1.8-7.7) Lymphocytes # (Auto) 0.9x10^3/uL (1.0-4.8) Monocytes # (Auto) 0.5x10^3/uL (0.0-1.1) Eosinophils # (Auto) 0.2x10^3/uL (0.0-0.7) Basophils # (Auto) 0.0x10^3/uL (0.0-0.2) Sodium Level 142mmol/L (136-145) Potassium Level 4.6mmol/L (3.5-5.1) Chloride Level 105mmol/L (98-107) Carbon Dioxide Level 29mmol/L (21-32) Anion Gap 8 (6-14) Blood Urea Nitrogen 47mg/dL (8-26) Creatinine 3.5mg/dL (0.7-1.3) Estimated GFR (Cockcroft-Gault) 17.4 Glucose Level 202mg/dL (70-99) Calcium Level 8.4mg/dL (8.5-10.1) Medications Active Scripts Medications Dose Route/Sig Days Date Category Zofran Odt (Ondansetron) 8 Mg Tab.rapdis 1 Tab PO Q8HRS 09/30/16 Reported Colace (Docusate Sodium) 100 Mg Capsule 1 Cap PO BID 09/30/16 Reported Hydrocodone-Apap 7.5-325 (Hydrocodone Bit/Acetaminophen) 1 Each Tablet 1 Tab PO Q3HRS PRN 09/30/16 Reported Glimepiride 4 Mg Tablet 1 Tab PO BID 09/29/16 Reported Glimepiride 2 Mg Tablet 1 Tab PO BID 09/29/16 Reported Levemir (Insulin Detemir) 100 Unit/1 Ml Vial 30 Unit SQ HS 06/29/14 Reported Comments cxr reviewed improved Impression . 1. Acute hypoxic respiratory failure sec to heart failure, 2. Clinically, less likely pneumonia, possible lung injury 3. Underlying chronic obstructive pulmonary disease. 4. Abnormal chest x-ray with diffuse interstitial infiltrates, more compatible with pulmonary edema 5. Acute kidney injury on chronic kidney disease. s/p emergent dialysis. 6. Hypoglycemia, now being corrected. 7. Normal ejection fraction on recent echo. Plan . resp status is improving daily 1. REPEAT CXR IMPROVING 2. PRN BIPAP 3. Titrated 02 to keep sat 90% 4. HD PER NEPHRO, 5. Continue bronchodilators. 6. Continue antibiotics. 7. Monitor blood sugars. discussed w pt ok to dc from pulm standpoint REINALDO CARDOZO MD Oct 30, 2016 10:00
--- NOTE | 2016-10-30 11:22 | PDOC ---
Renal-Progress Notes Subjective Notes Notes FEELING BETTER History of Present Illness Hx of present illness IMPROVED Vitals Vitals Vital Signs Date Time Temp Pulse Resp B/P Pulse Ox O2 Delivery O2 Flow Rate FiO2 10/30/16 07:15 97.9 82 18 142/67 96 Nasal Cannula 3.5 97.9 Weight Weight [ ] I.O. Intake and Output Intake and Output 10/30/16 07:00 Intake Total 950 ml Output Total 550 ml Balance 400 ml Intake Oral 900 ml IV Total 50 ml Output Urine Total 550 ml # Bowel Movements 2 Labs Labs Laboratory Tests Test 10/29/16 16:26 10/30/16 04:31 10/30/16 07:19 Glucose (Fingerstick) 68mg/dL (70-99) 162mg/dL (70-99) White Blood Count 7.1x10^3/uL (4.0-11.0) Red Blood Count 3.15x10^6/uL (4.30-5.70) Hemoglobin 8.8g/dL (13.0-17.5) Hematocrit 26.8% (39.0-53.0) Mean Corpuscular Volume 85fL (79-100) Mean Corpuscular Hemoglobin 28pg (25-35) Mean Corpuscular Hemoglobin Concent 33g/dL (31-37) Red Cell Distribution Width 14.8% (11.5-14.5) Platelet Count 184x10^3/uL (140-400) Neutrophils (%) (Auto) 77% (31-73) Lymphocytes (%) (Auto) 13% (24-48) Monocytes (%) (Auto) 7% (0-9) Eosinophils (%) (Auto) 2% (0-3) Basophils (%) (Auto) 1% (0-3) Neutrophils # (Auto) 5.4x10^3uL (1.8-7.7) Lymphocytes # (Auto) 0.9x10^3/uL (1.0-4.8) Monocytes # (Auto) 0.5x10^3/uL (0.0-1.1) Eosinophils # (Auto) 0.2x10^3/uL (0.0-0.7) Basophils # (Auto) 0.0x10^3/uL (0.0-0.2) Sodium Level 142mmol/L (136-145) Potassium Level 4.6mmol/L (3.5-5.1) Chloride Level 105mmol/L (98-107) Carbon Dioxide Level 29mmol/L (21-32) Anion Gap 8 (6-14) Blood Urea Nitrogen 47mg/dL (8-26) Creatinine 3.5mg/dL (0.7-1.3) Estimated GFR (Cockcroft-Gault) 17.4 Glucose Level 202mg/dL (70-99) Calcium Level 8.4mg/dL (8.5-10.1) Micro Micro Microbiology 10/25/16 Blood Culture - Preliminary, Resulted NO GROWTH AFTER 4 DAYS 10/21/16 Urine Culture - Final, Complete 10/21/16 Urine Culture Result 1 (HERBERT) - Final, Complete 10/22/16 Gram Stain - Final, Complete Physical Exam General Appearance: no apparent distress Skin: warm Respiratory: decreased breath sounds Heart: S1S2, RRR Abdomen: soft, bowel sounds present Genitourinary: bladder flat Extremities: pulses present Neurology: alert, oriented, follow commands Musculoskeletal: Osteoarthritis, Other (foot osteomyelitis) Assessment Assessment IMP CHF-COMPENSATED RHETT PERSISTS HYPOXIA RESP FAILURE ST-FROM BETA AGONIST-BETTER PLAN IV LASIX TO CONTINUE HD TODAY UF TO DW ENC PO WILL HAVE IR CONVERT TEMP TO TUNNELED HD CATHETER TODAY TO SELECT SOONE HAVE ASKED SW TO SET UP OP HD WILL FOLLOW BEVERLY EDWARD MD Oct 30, 2016 11:22
--- NOTE | 2016-10-30 11:46 | PDOC ---
PROGRESS NOTES Chief Complaint Chief Complaint Hypoxic respiratory failure - CHF, diastolic - RHETT, improving - suspected underlying CKD - Hypokalemia: improved - L foot osteomyelitis; s/p I&D on 10/[address] Luis. wound vac in place. - DM2 - Afib - HTN, well controlled - COPD - acute diarrhea, resolved - metab acidosis, resolved - thrombocytopenia, chronic, stable; 80s-90s. suspect ITP - anemia, normocytic, normochromic History of Present Illness History of Present Illness Patient being dialyzed and in no acute distress when evaluated this AM. Without new complaints. Pt feels relatively well. Pt planning to go for permanent catheter placement this afternoon. After which, pt and daughter have decided it best to discharge to LTAC. Discussed case with SW. Vitals Vitals Vital Signs Date Time Temp Pulse Resp B/P Pulse Ox O2 Delivery O2 Flow Rate FiO2 10/30/16 07:15 97.9 82 18 142/67 96 Nasal Cannula 3.5 97.9 Physical Exam General: Alert, Oriented X3, Cooperative, No acute distress Heart: Other (IRR, no s3/s4) Lungs: Clear Abdomen: Normal bowel sounds, Soft Extremities: No cyanosis, Normal pulses Skin: No rashes, Other (left foot wound covered with wound vac. bilat distal foot amputations) Labs LABS Laboratory Tests Test 10/29/16 16:26 10/30/16 04:31 10/30/16 07:19 10/30/16 11:36 Glucose (Fingerstick) 68mg/dL (70-99) 162mg/dL (70-99) 136mg/dL (70-99) White Blood Count 7.1x10^3/uL (4.0-11.0) Red Blood Count 3.15x10^6/uL (4.30-5.70) Hemoglobin 8.8g/dL (13.0-17.5) Hematocrit 26.8% (39.0-53.0) Mean Corpuscular Volume 85fL (79-100) Mean Corpuscular Hemoglobin 28pg (25-35) Mean Corpuscular Hemoglobin Concent 33g/dL (31-37) Red Cell Distribution Width 14.8% (11.5-14.5) Platelet Count 184x10^3/uL (140-400) Neutrophils (%) (Auto) 77% (31-73) Lymphocytes (%) (Auto) 13% (24-48) Monocytes (%) (Auto) 7% (0-9) Eosinophils (%) (Auto) 2% (0-3) Basophils (%) (Auto) 1% (0-3) Neutrophils # (Auto) 5.4x10^3uL (1.8-7.7) Lymphocytes # (Auto) 0.9x10^3/uL (1.0-4.8) Monocytes # (Auto) 0.5x10^3/uL (0.0-1.1) Eosinophils # (Auto) 0.2x10^3/uL (0.0-0.7) Basophils # (Auto) 0.0x10^3/uL (0.0-0.2) Sodium Level 142mmol/L (136-145) Potassium Level 4.6mmol/L (3.5-5.1) Chloride Level 105mmol/L (98-107) Carbon Dioxide Level 29mmol/L (21-32) Anion Gap 8 (6-14) Blood Urea Nitrogen 47mg/dL (8-26) Creatinine 3.5mg/dL (0.7-1.3) Estimated GFR (Cockcroft-Gault) 17.4 Glucose Level 202mg/dL (70-99) Calcium Level 8.4mg/dL (8.5-10.1) Review of Systems Review of Systems denies fever, chills denying chest pain, shortness of air Assessment and Plan Assessmemt and Plan ASSESSMENT: - Hypoxic respiratory failure - CHF, diastolic - RHETT, improving - suspected underlying CKD - Hypokalemia: improved - L foot osteomyelitis; s/p I&D on 10/[address] Luis. wound vac in place. - DM2, poorly controlled - Afib - HTN, well controlled - COPD - acute diarrhea, resolved - metab acidosis, resolved - thrombocytopenia, chronic, stable; 80s-90s. suspect ITP - anemia, normocytic, normochromic PLAN: - Permanent catheter to be placed today, afterwards plan is to discharge to LTAC ; placement pending per SW - initiate outpt HD schedule per nephrology; SW arranging with [facility] - per ID: d/c Meropenem, restart Zosyn - repeat daily labs - cont nebs and O2 supplementation - cont wound care - PTOT - appreciate all subspecialists on the case Problems: Comment Review of Relevant I have reviewed the following items jovan (where applicable) has been applied. Labs Laboratory Tests Test 10/28/16 16:54 10/28/16 21:02 10/29/16 03:43 10/29/16 07:58 Glucose (Fingerstick) 83mg/dL (70-99) 75mg/dL (70-99) 74mg/dL (70-99) White Blood Count 7.0x10^3/uL (4.0-11.0) Red Blood Count 3.19x10^6/uL (4.30-5.70) Hemoglobin 9.0g/dL (13.0-17.5) Hematocrit 27.0% (39.0-53.0) Mean Corpuscular Volume 85fL (79-100) Mean Corpuscular Hemoglobin 28pg (25-35) Mean Corpuscular Hemoglobin Concent 33g/dL (31-37) Red Cell Distribution Width 14.7% (11.5-14.5) Platelet Count 175x10^3/uL (140-400) Neutrophils (%) (Auto) 77% (31-73) Lymphocytes (%) (Auto) 14% (24-48) Monocytes (%) (Auto) 6% (0-9) Eosinophils (%) (Auto) 3% (0-3) Basophils (%) (Auto) 1% (0-3) Neutrophils # (Auto) 5.4x10^3uL (1.8-7.7) Lymphocytes # (Auto) 0.9x10^3/uL (1.0-4.8) Monocytes # (Auto) 0.4x10^3/uL (0.0-1.1) Eosinophils # (Auto) 0.2x10^3/uL (0.0-0.7) Basophils # (Auto) 0.0x10^3/uL (0.0-0.2) Sodium Level 143mmol/L (136-145) Potassium Level 3.8mmol/L (3.5-5.1) Chloride Level 106mmol/L (98-107) Carbon Dioxide Level 32mmol/L (21-32) Anion Gap 5 (6-14) Blood Urea Nitrogen 29mg/dL (8-26) Creatinine 2.3mg/dL (0.7-1.3) Estimated GFR (Cockcroft-Gault) 28.2 Glucose Level 81mg/dL (70-99) Calcium Level 8.4mg/dL (8.5-10.1) Hepatitis B Core Total Antibody Negative (Negative) Test 10/29/16 11:08 10/29/16 16:26 10/30/16 04:31 10/30/16 07:19 Glucose (Fingerstick) 86mg/dL (70-99) 68mg/dL (70-99) 162mg/dL (70-99) White Blood Count 7.1x10^3/uL (4.0-11.0) Red Blood Count 3.15x10^6/uL (4.30-5.70) Hemoglobin 8.8g/dL (13.0-17.5) Hematocrit 26.8% (39.0-53.0) Mean Corpuscular Volume 85fL (79-100) Mean Corpuscular Hemoglobin 28pg (25-35) Mean Corpuscular Hemoglobin Concent 33g/dL (31-37) Red Cell Distribution Width 14.8% (11.5-14.5) Platelet Count 184x10^3/uL (140-400) Neutrophils (%) (Auto) 77% (31-73) Lymphocytes (%) (Auto) 13% (24-48) Monocytes (%) (Auto) 7% (0-9) Eosinophils (%) (Auto) 2% (0-3) Basophils (%) (Auto) 1% (0-3) Neutrophils # (Auto) 5.4x10^3uL (1.8-7.7) Lymphocytes # (Auto) 0.9x10^3/uL (1.0-4.8) Monocytes # (Auto) 0.5x10^3/uL (0.0-1.1) Eosinophils # (Auto) 0.2x10^3/uL (0.0-0.7) Basophils # (Auto) 0.0x10^3/uL (0.0-0.2) Sodium Level 142mmol/L (136-145) Potassium Level 4.6mmol/L (3.5-5.1) Chloride Level 105mmol/L (98-107) Carbon Dioxide Level 29mmol/L (21-32) Anion Gap 8 (6-14) Blood Urea Nitrogen 47mg/dL (8-26) Creatinine 3.5mg/dL (0.7-1.3) Estimated GFR (Cockcroft-Gault) 17.4 Glucose Level 202mg/dL (70-99) Calcium Level 8.4mg/dL (8.5-10.1) Test 10/30/16 11:36 Glucose (Fingerstick) 136mg/dL (70-99) Laboratory Tests Test 10/29/16 16:26 10/30/16 04:31 10/30/16 07:19 10/30/16 11:36 Glucose (Fingerstick) 68mg/dL (70-99) 162mg/dL (70-99) 136mg/dL (70-99) White Blood Count 7.1x10^3/uL (4.0-11.0) Red Blood Count 3.15x10^6/uL (4.30-5.70) Hemoglobin 8.8g/dL (13.0-17.5) Hematocrit 26.8% (39.0-53.0) Mean Corpuscular Volume 85fL (79-100) Mean Corpuscular Hemoglobin 28pg (25-35) Mean Corpuscular Hemoglobin Concent 33g/dL (31-37) Red Cell Distribution Width 14.8% (11.5-14.5) Platelet Count 184x10^3/uL (140-400) Neutrophils (%) (Auto) 77% (31-73) Lymphocytes (%) (Auto) 13% (24-48) Monocytes (%) (Auto) 7% (0-9) Eosinophils (%) (Auto) 2% (0-3) Basophils (%) (Auto) 1% (0-3) Neutrophils # (Auto) 5.4x10^3uL (1.8-7.7) Lymphocytes # (Auto) 0.9x10^3/uL (1.0-4.8) Monocytes # (Auto) 0.5x10^3/uL (0.0-1.1) Eosinophils # (Auto) 0.2x10^3/uL (0.0-0.7) Basophils # (Auto) 0.0x10^3/uL (0.0-0.2) Sodium Level 142mmol/L (136-145) Potassium Level 4.6mmol/L (3.5-5.1) Chloride Level 105mmol/L (98-107) Carbon Dioxide Level 29mmol/L (21-32) Anion Gap 8 (6-14) Blood Urea Nitrogen 47mg/dL (8-26) Creatinine 3.5mg/dL (0.7-1.3) Estimated GFR (Cockcroft-Gault) 17.4 Glucose Level 202mg/dL (70-99) Calcium Level 8.4mg/dL (8.5-10.1) Microbiology 10/25/16 Blood Culture - Preliminary, Resulted NO GROWTH AFTER 4 DAYS 10/21/16 Urine Culture - Final, Complete 10/21/16 Urine Culture Result 1 (HERBERT) - Final, Complete 10/22/16 Gram Stain - Final, Complete Medications Current Medications Diltiazem HCl 20 mg 20 mg 1X ONCE IVP Last administered on 10/20/16 13:35; Start 10/20/16 at 13:30; Stop 10/20/16 at 13:31; Status DC Diltiazem HCl 125 mg/Dextrose 125 ml @ 10 mls/hr 1X ONCE IV Last administered on 10/20/16 13:49; Start 10/20/16 at 13:30; Stop 10/20/16 at 19:37; Status DC Sodium Chloride (Iv Sodium Chloride 0.9% 1000ml Bag) 1,000 ml @ 100 mls/hr Q10H IV Last administered on 10/20/16 13:45; Start 10/20/16 at 13:30; Stop at 23:29; Status DC Diltiazem HCl (Cardizem) 20 mg 1X ONCE IVP Last administered on 10/20/16 14:16 ; Start 10/20/16 at 14:00; Stop 10/20/16 at 14:01; Status DC Vancomycin HCl (Vanco Per Pharmacy) 1 each PRN DAILY PRN MC SEE COMMENTS Last administered on 10/20/16 16:49; Start 10/20/16 at 14:45; Stop 10/21/16 at 07:42; Status DC Piperacillin Sod/ Tazobactam Sod 1 each 1 each PRN DAILY PRN MC SEE COMMENTS; Start 10/20/16 at 14:45; Stop 10/21/16 at 07:49; Status DC Vancomycin HCl 2 gm/Sodium Chloride 500 ml @ 250 mls/hr 1X ONCE IV Last administered on 10/20/16 15:45; Start 10/20/16 at 15:00; Stop 10/20/16 at 16:59; Status DC Piperacillin Sod/ Tazobactam Sod/ Sodium Chloride (Zosyn/Iv Sodium Chloride 0.9 % 50ml) 50 ml @ 100 mls/hr 1X ONCE IV Last administered on 10/20/16 15:04; Start 10/20/16 at 15:00; Stop 10/20/16 at 15:29; Status DC Ondansetron HCl (Zofran) 4 mg PRN Q8HRS PRN IV NAUSEA/VOMITING; Start 10/20/16 at 15:00; Stop 10/20/16 at 15:16; Status DC Fentanyl Citrate 50 mcg 50 mcg PRN Q2HR PRN IV PAIN; Start 10/20/16 at 15:00; Stop 10/21/16 at 14:59; Status DC Sodium Chloride (Iv Sodium Chloride 0.9% 1000ml Bag) 1,000 ml @ 100 mls/hr Q10H IV Last administered on 10/21/16 11:30; Start 10/20/16 at 15:30; Stop at 15:29; Status DC Acetaminophen (Tylenol) 650 mg PRN Q4HRS PRN PO FEVER; Start 10/20/16 at 15:00; Stop 10/21/16 at 14:59; Status DC Ondansetron HCl (Zofran) 4 mg PRN Q6HRS PRN IV NAUSEA/VOMITING; Start 10/20/16 at 15:12 Insulin Aspart (Novolog) 0-9 UNITS TIDWMEALS SQ Last administered on 10/28/16 11:33; Start 10/20/16 at 17:00 Dextrose 12.5 gm PRN Q15MIN PRN IV SEE COMMENTS Last administered on 10/26/16 23:42; Start 10/20/16 at 15:15 Docusate Sodium (Colace) 100 mg BID PO Last administered on 10/26/16 21:17; Start 10/20/16 at 21:00 Glimepiride (Amaryl) 2 mg BID PO ; Start 10/20/16 at 21:00; Status UNV Acetaminophen/ Hydrocodone Bitart (Lortab 7.5/325) 1 tab PRN Q3HRS PRN PO PAIN Last administered on 10/26/16 15:27; Start 10/20/16 at 15:15 Glimepiride (Amaryl) 4 mg BIDWMEALS PO Last administered on 10/20/16 17:32; Start 10/20/16 at 17:00; Stop 10/21/16 at 14:52; Status DC Insulin Detemir (Levemir) 30 units QHS SQ Last administered on 10/20/16 21:03; Start 10/20/16 at 21:00; Stop 10/21/16 at 14:52; Status DC Ondansetron HCl 4 mg 4 mg Q8HRS PO Last administered on 10/21/16 06:17; Start 10/20/16 at 22:00; Stop 10/21/16 at 17:24; Status DC Sodium Chloride 500 ml @ 500 mls/hr 1X ONCE IV ; Start 10/20/16 at 15:30; Stop 10/20/16 at 16:29; Status DC Piperacillin Sod/ Tazobactam Sod 2.25 gm/Sodium Chloride 50 ml @ 100 mls/hr Q6HRS IV Last administered on 10/27/16 06:03; Start 10/21/16 at 00:00; Stop at 07:43; Status DC Vancomycin HCl/ Sodium Chloride (Iv Sodium Chloride 0.9% 250ml) 250 ml @ 167 mls/hr Q24H IV ; Start 10/21/16 at 16:00; Stop 10/21/16 at 16:00; Status DC Vancomycin HCl 1 each 1 each 1X ONCE MC ; Start 10/22/16 at 15:30; Stop 10/22/16 at 15:31; Status Cancel Dopamine HCl/ Dextrose 250 ml @ 13.183 mls/ hr CONT PRN IV SEE I/O RECORD Last administered on 10/20/16 20:38; Start 10/20/16 at 19:30; Stop 10/28/16 at 15 :26; Status DC Digoxin (Lanoxin) 250 mcg 1X ONCE IV Last administered on 10/20/16 21:02; Start 10/20/16 at 20:45; Stop 10/20/16 at 20:46; Status DC Digoxin (Lanoxin) 250 mcg 1X ONCE IV Last administered on 10/21/16 01:48; Start 10/21/16 at 02:00; Stop 10/21/16 at 02:01; Status DC Digoxin 250 mcg 250 mcg 1X ONCE IV Last administered on 10/21/16 04:12; Start 10/21/16 at 04:15; Stop 10/21/16 at 04:16; Status DC Diltiazem HCl 125 mg/Dextrose 125 ml @ 0 mls/hr CONT PRN IV SEE I/O RECORD Last administered on 10/21/16 23:03; Start 10/21/16 at 04:15; Stop 10/22/16 at 09: 44; Status DC Linezolid 300 ml @ 300 mls/hr Q12HR IV Last administered on 10/22/16 20:18; Start 10/21/16 at 09:00; Stop 10/23/16 at 07:26; Status DC Magnesium Sulfate/ Dextrose 50 ml @ 25 mls/hr PRN DAILY PRN IV for Mag < 1.7 on am labs Last administered on 10/22/16 15:15; Start 10/21/16 at 09:45 Albumin Human (Plasmanate) 500 ml @ 125 mls/hr 1X ONCE IV Last administered on 10/21/16 10:25; Start 10/21/16 at 09:45; Stop 10/21/16 at 13:44; Status DC Ondansetron HCl (Zofran) 4 mg PRN Q6HRS PRN IV Nausea; Start 10/21/16 at 10:00; Stop 10/22/16 at 09:59; Status DC Fentanyl Citrate (Fentanyl 2ml Vial) 25 mcg PRN Q5MIN PRN IV MILD PAIN; Start 10/21/16 at 10:00; Stop 10/22/16 at 09:59; Status DC Fentanyl Citrate (Fentanyl 2ml Vial) 50 mcg PRN Q5MIN PRN IV MODERATE PAIN; Start 10/21/16 at 10:00; Stop 10/22/16 at 09:59; Status DC Morphine Sulfate 1 mg 1 mg PRN Q10MIN PRN IV SEVERE PAIN; Start 10/21/16 at 10: 00; Stop 10/22/16 at 09:59; Status DC Lactated Ringer's (Iv Lactated Ringers) 1,000 ml @ 30 mls/hr Q24H IV ; Start at 09:50; Stop 10/21/16 at 21:49; Status DC Lidocaine HCl 2 ml 1X PRN PRN ID IV START; Start 10/21/16 at 10:00; Stop at 09:59; Status DC Hydromorphone HCl (Dilaudid) 0.5 mg PRN Q10MIN PRN IV SEV PAIN,Second choice; Start 10/21/16 at 10:00; Stop 10/22/16 at 09:59; Status DC Prochlorperazine Edisylate 5 mg 5 mg PACU PRN PRN IV NAUSEA; Start 10/21/16 at 10:00; Stop 10/22/16 at 09:59; Status DC Sodium Chloride (Iv Sodium Chloride 0.9% 500ml Bag) 500 ml @ 0 mls/hr PRN QID PRN IV UO< 30cc/hr over previous 6hrs; Start 10/21/16 at 10:15; Stop 10/21/16 at 17:27; Status DC Ondansetron HCl (Zofran) 4 mg PRN Q6HRS PRN IV Nausea; Start 10/21/16 at 11:30; Stop 10/22/16 at 11:29; Status DC Morphine Sulfate 1 mg 1 mg PRN Q10MIN PRN IV SEVERE PAIN; Start 10/21/16 at 11: 30; Stop 10/22/16 at 11:29; Status DC Lactated Ringer's (Iv Lactated Ringers) 1,000 ml @ 0 mls/hr Q0M IV ; Start 10/21 at 11:19; Stop 10/21/16 at 23:18; Status DC Lidocaine HCl 2 ml 1X PRN PRN ID IV START; Start 10/21/16 at 11:30; Stop at 11:29; Status DC Hydromorphone HCl (Dilaudid) 0.5 mg PRN Q10MIN PRN IV SEV PAIN,Second choice; Start 10/21/16 at 11:30; Stop 10/22/16 at 11:29; Status DC Prochlorperazine Edisylate (Compazine) 5 mg PACU PRN PRN IV NAUSEA; Start at 11:30; Stop 10/22/16 at 11:29; Status DC Atorvastatin Calcium (Lipitor) 20 mg QHS PO Last administered on 10/29/16t 21: 36; Start 10/21/16 at 21:00 Aspirin (Ecotrin) 81 mg DAILYWBKFT PO Last administered on 10/29/16 09:08; Start 10/21/16 at 12:00 Ondansetron HCl (Zofran) 4 mg PRN Q6HRS PRN IV Nausea; Start 10/22/16 at 07:00; Stop 10/23/16 at 06:59; Status DC Morphine Sulfate 1 mg 1 mg PRN Q10MIN PRN IV SEVERE PAIN; Start 10/22/16 at 07: 00; Stop 10/23/16 at 06:59; Status DC Lactated Ringer's (Iv Lactated Ringers) 1,000 ml @ 30 mls/hr Q24H IV ; Start at 07:00; Stop 10/22/16 at 15:07; Status DC Lidocaine HCl 2 ml 1X PRN PRN ID IV START; Start 10/22/16 at 07:00; Stop at 06:59; Status DC Hydromorphone HCl (Dilaudid) 0.5 mg PRN Q10MIN PRN IV SEVERE PAIN, Second choice; Start 10/22/16 at 07:00; Stop 10/23/16 at 06:59; Status DC Prochlorperazine Edisylate (Compazine) 5 mg PACU PRN PRN IV NAUSEA; Start at 07:00; Stop 10/23/16 at 06:59; Status DC Aspirin (Ecotrin) 81 mg DAILYWBKFT PO ; Start 10/22/16 at 08:00; Status UNV Insulin Detemir (Levemir) 20 units QHS SQ ; Start 10/21/16 at 21:00; Stop at 08:29; Status DC Ondansetron HCl 4 mg 4 mg PRN Q8HRS PRN PO NAUSEA; Start 10/22/16 at 14:00 Sodium Chloride 1,000 ml @ 175 mls/hr Q5H43M IV Last administered on 05:30; Start 10/21/16 at 18:00; Stop 10/23/16 at 07:20; Status DC Dextrose 1,000 ml @ 75 mls/hr [id number] IV Last administered on 10/22/16 04:54; Start 10/22/16 at 04:45; Stop 10/22/16 at 15:05; Status DC Bupivacaine HCl (Sensorcaine Mpf 0.5%) 30 ml STK-MED ONCE .ROUTE ; Start at 06:45; Stop 10/22/16 at 06:46; Status DC Lidocaine HCl 20 ml 20 ml STK-MED ONCE .ROUTE ; Start 10/22/16 at 06:46; Stop 10/22/16 at 06:47; Status DC Propofol (Diprivan) 20 ml @ As Directed STK-MED ONCE IV ; Start 10/22/16 at 08:02 ; Stop 10/22/16 at 08:03; Status DC Lidocaine HCl 100 mg STK-MED ONCE .ROUTE ; Start 10/22/16 at 08:02; Stop 10/22/16 at 08:03; Status DC Ondansetron HCl (Zofran) 4 mg STK-MED ONCE .ROUTE ; Start 10/22/16 at 08:31; Stop 10/22/16 at 08:32; Status DC Phenylephrine HCl 1 mg STK-MED ONCE IV ; Start 10/22/16 at 08:31; Stop 10/22/16 at 08:32; Status DC Dexamethasone Sodium Phosphate (Decadron) 20 mg STK-MED ONCE .ROUTE ; Start 10/22 at 08:48; Stop 10/22/16 at 08:49; Status DC Sevoflurane (Ultane) 30 ml STK-MED ONCE IH ; Start 10/22/16 at 08:48; Stop at 08:49; Status DC Diltiazem HCl (Cardizem) 30 mg Q6HRS PO Last administered on 10/27/16 11:27; Start 10/22/16 at 10:00; Stop 10/27/16 at 12:31; Status DC Metoprolol Tartrate 5 mg 5 mg PRN Q6HRS PRN IVP ELEVATED BP, SEE COMMENTS; Start 10/22/16 at 09:45 Albumin Human (Plasmanate) 500 ml @ 125 mls/hr 1X ONCE IV Last administered on 10/22/16 11:20; Start 10/22/16 at 09:45; Stop 10/22/16 at 13:44; Status DC Info (Anti-Coagulation Monitoring By Pharmacy) 1 each PRN DAILY PRN MC SEE COMMENTS; Start 10/22/16 at 15:15; Status UNV Heparin Sodium (Porcine) 5,000 unit Q12HR SQ Last administered on 10/28/16 11: 08; Start 10/22/16 at 21:00; Stop 10/28/16 at 16:02; Status DC Loperamide HCl (Imodium) 2 mg PRN Q15MIN PRN PO DIARRHEA Last administered on 09:27; Start 10/22/16 at 20:00 Insulin Human Regular (Novolin R Vial) 10 unit 1X ONCE IV Last administered on 10/22/16 23:52; Start 10/22/16 at 01:00; Stop 10/22/16 at 23:46; Status DC Insulin Detemir (Levemir) 10 units 1X ONCE SQ Last administered on 10/22/16 23 :53; Start 10/22/16 at 23:45; Stop 10/22/16 at 23:46; Status DC Insulin Human Regular 10 unit 10 unit 1X ONCE IV Last administered on 00:09; Start 10/23/16 at 00:00; Stop 10/23/16 at 00:01; Status DC Sodium Chloride 38.75 meq/Sodium Bicarbonate 75 meq/Sterile Water 1,084.6875 ml @ 150 mls/hr CONT PRN IV SEE I/O RECORD Last administered on 10/24/16 07:12; Start 10/23/16 at 07:30 Albumin Human (Albuminar) 100 ml @ 100 mls/hr TID IV Last administered on 10/24 21:23; Start 10/23/16 at 09:00; Stop 10/24/16 at 21:59; Status DC Heparin Sodium (Porcine) 10,000 unit STK-MED ONCE .ROUTE ; Start 10/23/16 at 07: 55; Stop 10/23/16 at 07:56; Status DC Lidocaine/Sodium Bicarbonate 20 ml 20 ml STK-MED ONCE IJ ; Start 10/23/16 at 07: 55; Stop 10/23/16 at 07:56; Status DC Heparin Sodium/ Sodium Chloride 500 ml @ As Directed STK-MED ONCE .ROUTE ; Start 10/23/16 at 07:55; Stop 10/23/16 at 07:56; Status DC Insulin Detemir (Levemir) 20 units DAILY08 SQ ; Start 10/23/16 at 08:00; Stop at 08:01; Status DC Insulin Aspart (Novolog) 10 units TIDAC SQ Last administered on 10/23/16 17:46 ; Start 10/23/16 at 11:30; Stop 10/24/16 at 11:12; Status DC Insulin Detemir (Levemir) 30 units DAILY08 SQ Last administered on 10/23/16 09 :55; Start 10/23/16 at 08:30; Stop 10/24/16 at 11:12; Status DC Lidocaine/Sodium Bicarbonate (Buffered Lidocaine 1%) 3 ml 1X ONCE IJ Last administered on 10/23/16 08:48; Start 10/23/16 at 08:30; Stop 10/23/16 at 08:31 ; Status DC Heparin Sodium/ Sodium Chloride 60 unit 1X ONCE IV Last administered on 08:48; Start 10/23/16 at 08:30; Stop 10/23/16 at 08:31; Status DC Heparin Sodium (Porcine) 2,500 unit 1X ONCE INT CAT Last administered on 08:48; Start 10/23/16 at 08:30; Stop 10/23/16 at 08:31; Status DC Albuterol/ Ipratropium (Duoneb) 3 ml RTQID NEB Last administered on 10/29/16 20:15; Start 10/24/16 at 12:00 Albuterol/ Ipratropium (Duoneb) 3 ml 1X ONCE NEB Last administered on 09:11; Start 10/24/16 at 09:00; Stop 10/24/16 at 09:01; Status DC Budesonide (Pulmicort) 0.5 mg RTBID NEB Last administered on 10/29/16 20:15; Start 10/24/16 at 10:00 Insulin Aspart (Novolog) 7 units TIDAC SQ Last administered on 10/29/16 12:24 ; Start 10/24/16 at 11:30 Insulin Detemir (Levemir) 20 units [id number] SQ Last administered on 10/29/16 09 :26; Start 10/25/16 at 08:00 Potassium Chloride 20 meq 20 meq 1X ONCE PO Last administered on 10/24/16 18: 28; Start 10/24/16 at 12:00; Stop 10/24/16 at 12:01; Status DC Sodium Chloride 1,000 ml @ 1,000 mls/hr Q1H PRN IV hypotension; Start 10/24/16 at 13:00; Stop 10/24/16 at 18:59; Status DC Albumin Human (Albuminar) 200 ml @ 200 mls/hr 1X PRN PRN IV Hypotension; Start 10/24/16 at 14:00; Stop 10/24/16 at 19:59; Status DC Acetaminophen (Tylenol) 500 mg 1X PRN PRN PO MILD PAIN / TEMP; Start 10/24/16 at 14:00; Stop 10/25/16 at 13:59; Status DC Diphenhydramine HCl (Benadryl) 25 mg 1X PRN PRN IV ITCHING; Start 10/24/16 at 14:00; Stop 10/25/16 at 13:59; Status DC Diphenhydramine HCl (Benadryl) 25 mg 1X PRN PRN IV ITCHING; Start 10/24/16 at 14:00; Stop 10/25/16 at 13:59; Status DC Info (PHARMACY MONITORING -- do not chart) 1 each PRN DAILY PRN MC SEE COMMENTS ; Start 10/24/16 at 14:00; Stop 10/25/16 at 13:16; Status DC Potassium Chloride 20 meq 20 meq 1X ONCE PO ; Start 10/24/16 at 18:30; Stop 07/02 at 18:31; Status DC Amino Acids/ Electrolytes (Clinimix E 2.75%-5% Solution) 1,000 ml @ 55 mls/hr [id number] IV Last administered on 10/27/16 00:52; Start 10/25/16 at 12:00; Stop 10/27/16 at 14:10; Status DC Hydralazine HCl 10 mg 10 mg PRN Q4HRS PRN IVP ELEVATED BP, SEE COMMENTS Last administered on 10/27/16 06:05; Start 10/25/16 at 12:45 Sodium Chloride 1,000 ml @ 1,000 mls/hr Q1H PRN IV hypotension; Start 10/25/16 at 13:07; Stop 10/25/16 at 19:06; Status DC Albumin Human (Albuminar) 200 ml @ 200 mls/hr 1X PRN PRN IV Hypotension Last administered on 10/25/16 14:30; Start 10/25/16 at 13:15; Stop 10/25/16 at 19:14 ; Status DC Acetaminophen (Tylenol) 500 mg 1X PRN PRN PO MILD PAIN / TEMP; Start 10/25/16 at 13:15; Stop 10/26/16 at 13:14; Status DC Diphenhydramine HCl (Benadryl) 25 mg 1X PRN PRN IV ITCHING; Start 10/25/16 at 13:15; Stop 10/26/16 at 13:14; Status DC Diphenhydramine HCl (Benadryl) 25 mg 1X PRN PRN IV ITCHING; Start 10/25/16 at 13:15; Stop 10/26/16 at 13:14; Status DC Info (PHARMACY MONITORING -- do not chart) 1 each PRN DAILY PRN MC SEE COMMENTS ; Start 10/25/16 at 13:15 Famotidine (Pepcid) 20 mg QHS IVP Last administered on 10/26/16 21:17; Start 10/26/16 at 21:00; Stop 10/27/16 at 11:20; Status DC Furosemide 40 mg 40 mg [id number] IVP Last administered on 10/29/16 09:11; Start at 12:00 Sodium Chloride 1,000 ml @ 1,000 mls/hr Q1H PRN IV hypotension; Start 10/26/16 at 13:55; Stop 10/26/16 at 19:54; Status DC Sodium Chloride (Iv Sodium Chloride 0.9% 1000ml Bag) 1,000 ml @ 400 mls/hr Q2H30M PRN IV PATENCY; Start 10/26/16 at 13:55; Stop 10/27/16 at 01:54; Status DC Info 1 each 1 each PRN DAILY PRN MC SEE COMMENTS; Start 10/26/16 at 14:00; Status UNV Meropenem/Sodium Chloride (Merrem/Iv Sodium Chloride 0.9% 50ml) 50 ml @ 100 mls /hr Q6HRS IV Last administered on 10/28/16 06:00; Start 10/27/16 at 12:00; Stop 10/28/16 at 09:22; Status DC Metoprolol Tartrate (Lopressor) 25 mg BID PO Last administered on 10/29/16 21: 37; Start 10/27/16 at 12:00 Famotidine (Pepcid) 20 mg QHS PO Last administered on 10/29/16 21:36; Start at 21:00 Diltiazem HCl (Cardizem 24hr Cd) 180 mg DAILYBFRSUP PO Last administered on 17:31; Start 10/27/16 at 17:00 Regadenoson (Lexiscan) 0.4 mg 1X ONCE IV Last administered on 10/28/16 09:18 ; Start 10/28/16 at 07:45; Stop 10/28/16 at 07:46; Status DC Lactobacillus Acidophilus 1 tab 1 tab TIDWMEALS PO Last administered on 17:28; Start 10/28/16 at 12:00 Meropenem 500 mg/ Sodium Chloride 50 ml @ 100 mls/hr Q12HR IV Last administered on 10/29/16 21:36; Start 10/28/16 at 21:00; Stop 10/30/16 at 09:05 ; Status DC Sodium Chloride 1,000 ml @ 1,000 mls/hr Q1H PRN IV hypotension; Start 10/28/16 at 09:34; Stop 10/28/16 at 15:33; Status DC Albumin Human (Albuminar) 200 ml @ 200 mls/hr 1X PRN PRN IV Hypotension; Start 10/28/16 at 09:45; Stop 10/28/16 at 15:44; Status DC Acetaminophen (Tylenol) 500 mg 1X PRN PRN PO MILD PAIN / TEMP; Start 10/28/16 at 09:45; Stop 10/28/16 at 16:02; Status DC Diphenhydramine HCl (Benadryl) 25 mg 1X PRN PRN IV ITCHING; Start 10/28/16 at 09:45; Stop 10/28/16 at 16:02; Status DC Diphenhydramine HCl (Benadryl) 25 mg 1X PRN PRN IV ITCHING; Start 10/28/16 at 09:45; Stop 10/28/16 at 16:02; Status DC Sodium Chloride (Normal Saline Flush) 10 ml 1X PRN PRN IV AP catheter pack; Start 10/28/16 at 09:45; Stop 10/28/16 at 16:02; Status DC Sodium Chloride (Normal Saline Flush) 10 ml 1X PRN PRN IV [employer] catheter pack; Start 10/28/16 at 09:45; Stop 10/28/16 at 16:02; Status DC Labetalol HCl 10 mg 10 mg PRN Q1HR PRN IVP SBP > 180; Start 10/28/16 at 09:45; Stop 10/28/16 at 16:02; Status DC Sodium Chloride (Iv Sodium Chloride 0.9% 1000ml Bag) 1,000 ml @ 400 mls/hr Q2H30M PRN IV PATENCY; Start 10/28/16 at 09:34; Stop 10/28/16 at 21:33; Status DC Info 1 each 1 each PRN DAILY PRN MC SEE COMMENTS; Start 10/28/16 at 09:45; Status UNV Sodium Chloride (Iv Sodium Chloride 0.9% 1000ml Bag) 1,000 ml @ 1,000 mls/hr Q1H PRN IV hypotension; Start 10/28/16 at 12:47; Stop 10/28/16 at 18:46; Status UNV Diphenhydramine HCl (Benadryl) 25 mg 1X PRN PRN IV ITCHING; Start 10/28/16 at 13:00; Stop 10/29/16 at 12:59; Status UNV Diphenhydramine HCl (Benadryl) 25 mg 1X PRN PRN IV ITCHING; Start 10/28/16 at 13:00; Stop 10/29/16 at 12:59; Status UNV Sodium Chloride (Normal Saline Flush) 10 ml 1X PRN PRN IV AP catheter pack; Start 10/28/16 at 13:00; Stop 10/29/16 at 12:59; Status UNV Sodium Chloride 10 ml 10 ml 1X PRN PRN IV PRODUCTION RECOVERY OPERATOR catheter pack; Start 10/28/16 at 13:00; Stop 10/29/16 at 12:59; Status UNV Sodium Chloride (Iv Sodium Chloride 0.9% 1000ml Bag) 1,000 ml @ 400 mls/hr Q2H30M PRN IV PATENCY; Start 10/28/16 at 12:47; Stop 10/29/16 at 00:46; Status UNV Info (PHARMACY MONITORING -- do not chart) 1 each PRN DAILY PRN MC SEE COMMENTS ; Start 10/28/16 at 13:00; Status UNV Apixaban 5 mg 5 mg BID PO Last administered on 10/29/16t 09:12; Start 10/28/16 at 21:00 Sodium Chloride 1,000 ml @ 1,000 mls/hr Q1H PRN IV hypotension; Start 10/30/16 at 08:30; Stop 10/30/16 at 15:00 Albumin Human 200 ml @ 200 mls/hr 1X PRN PRN IV Hypotension; Start 10/30/16 at 08:30; Stop 10/30/16 at 14:29 Sodium Chloride (Iv Sodium Chloride 0.9% 1000ml Bag) 1,000 ml @ 400 mls/hr Q2H30M PRN IV PATENCY; Start 10/30/16 at 08:21; Stop 10/30/16 at 16:00 Info 1 each 1 each PRN DAILY PRN MC SEE COMMENTS; Start 10/30/16 at 08:30; Status UNV Piperacillin Sod/ Tazobactam Sod/ Sodium Chloride (Zosyn/Iv Sodium Chloride 0.9 % 50ml) 50 ml @ 100 mls/hr Q6HRS IV ; Start 10/30/16 at 12:00 Active Scripts Active Reported Zofran Odt (Ondansetron) 8 Mg Tab.rapdis 1 Tab PO Q8HRS Colace (Docusate Sodium) 100 Mg Capsule 1 Cap PO BID Hydrocodone-Apap 7.5-325 (Hydrocodone Bit/Acetaminophen) 1 Each Tablet 1 Tab PO Q3HRS PRN Glimepiride 4 Mg Tablet 1 Tab PO BID Glimepiride 2 Mg Tablet 1 Tab PO BID Levemir (Insulin Detemir) 100 Unit/1 Ml Vial 30 Unit SQ HS Vitals/I & O Vital Sign - Last 24 Hours 10/29/16 10/29/16 10/29/16 10/29/16 12:08 14:38 15:18 16:30 Temp 96.2 96.2 Pulse 89 Resp 20 B/P 93/54 Pulse Ox 98 97 O2 Delivery Nasal Cannula Nasal Cannula Nasal Cannula Nasal Cannula O2 Flow Rate 4.0 4.0 4.0 2.0 10/29/16 10/29/16 10/29/16 10/29/16 17:31 19:22 20:00 20:17 Temp 97.7 97.7 Pulse 85 89 Resp 18 B/P 143/59 129/62 Pulse Ox 91 91 O2 Delivery Room Air Nasal Cannula Room Air O2 Flow Rate 4.0 10/29/16 10/29/16 10/30/16 10/30/16 21:37 23:28 03:07 07:15 Temp 97.7 98.8 97.9 97.7 98.8 97.9 Pulse 89 61 82 82 Resp 18 18 18 B/P 126/57 124/56 145/65 142/67 Pulse Ox 94 97 96 O2 Delivery Nasal Cannula Nasal Cannula Nasal Cannula O2 Flow Rate 3.5 3.0 3.5 Intake and Output 10/29/16 10/29/16 10/30/16 15:00 23:00 07:00 Intake Total 540 ml 410 ml 0 ml Output Total 550 ml Balance 540 ml -140 ml 0 ml OSCAR SOLIS III DO Oct 30, 2016 11:46
[2016-10-30] MEDS: BUDESONIDE 0.5 MG/2 ML NEBU NEB SCH ×2 (12:16→20:33)
[2016-10-30] MEDS: PIPERACILLIN/TAZOBACTAM 2.25 GM in IV NORMAL SALINE 50ML 50 ML IV SCH ×2 (12:32→17:49)
[2016-10-30] MEDS: ANTI-COAG MONITOR BY PHARMACY. MC PRN (12:44)
[2016-10-30] MEDS ORDERED: LIDOCAINE 1%/EPI 1:100,000 20 ML VIAL. ONE (13:21)
[2016-10-30] MEDS ORDERED: HEPARIN for IV BOLUS 10,000 UNIT/10 ML VIAL. ONE (13:21)
[2016-10-30] MEDS ORDERED: MIDAZOLAM HCL 2 MG/2 ML VIAL. ONE (13:33)
[2016-10-30] MEDS ORDERED: FENTANYL PF 100 MCG/2 ML VIAL. ONE (13:34)
[2016-10-30] MEDS ORDERED: CEFAZOLIN 1GM IVPB FOR OMNI 0 ML IV ONE (13:34)
[2016-10-30] MEDS ORDERED: MIDAZOLAM HCL 2 MG/2 ML VIAL. IV ONE (14:00)
[2016-10-30] MEDS ORDERED: FENTANYL PF 100 MCG/2 ML VIAL. IV ONE (14:00)
[2016-10-30] MEDS ORDERED: LIDOCAINE 1%/EPI 1:100,000 20 ML VIAL. IJ ONE (14:00)
--- NOTE | 2016-10-30 14:14 | PDOC ---
MODERATE SEDATION ASSESSMENT RISKS/ALTERNATIVES Risks/Alternatives Risks and alternatives of this type of sedation and procedure discussed with: RISK/ALTERNATIVES: Patient H & P ON CHART H & P H & P on chart and reviewed for co-morbid conditions and appropriate labs. H&P ON CHART: Yes STATUS PREG STATUS ASSESSED: N/A MEDS/ALLERGIES REVIEWED Meds/Allergies Reviewed Medications and Allergies including time and route of recently administered narcotics and sedatives. MEDS/ALLERGIES REVIEWED: Yes ASA RATING ASA RATING: II AIRWAY ASSESSMENT Airway Assessment Airway patency, oral function limitations, presence of caps, crowns, dentures, partials, and ability to extend neck assessed. AIRWAY ASSESSMENT: Yes MALLAMPATI SCORE MALLAMPATI SCORE: II PRE-SEDATION ASSESSMENT PRE-SEDATION ASSESSMENT: Yes EMERSON GONG MD Oct 30, 2016 14:14
--- NOTE | 2016-10-30 14:20 | PDOC ---
Exam Design Coordinator Design Coordinator Kemal Internet Sales Representative Internet Sales Representative B Cates Pre-Procedure Diagnosis Pre-Procedure Diagnosis Persistent RHETT/ARF. Needs ongoing HD. Conversion from temp to tunneled HDC requested by Renal. Post-Procedure Diagnosis Post-Procedure Diagnosis Same Procedure Performed Procedure Performed Removal rt IJ temp HDC Sono/fluoro guided rt IJ tunneled HDC insertion Type of Anesthesia Type of Anesthesia Local + Mod sedation Estimated Blood Loss EBL: Minimal Specimens Specimans 14F 20cm Rt IJ Schon temp HDC removed and discarded. Drain/Tubes Drains/Tubes Rt IJ 15.5F 28cm DuraMax tunneled HDC Condition of Patient Condition of Patient Stable. No apparent complication. Disposition Disposition From IR return to 536. F/u with Renal. OK to use new tunneled HDC. Full report to follow. EMERSON GONG MD Oct 30, 2016 14:20
--- NOTE | 2016-10-30 14:32 | RAD ---
Removal of right IJ temporary hemodialysis catheter Ultrasound and fluoro guided placement of right IJ tunneled hemodialysis catheter Indication: Persistent acute kidney injury/acute renal failure, requiring ongoing hemodialysis. Conversion from temporary to tunneled hemodialysis catheter has been requested by renal. Fluoro time: 0.3 minutes Kerma-Area Product: 1 Gycm2 Moderate sedation: 25 minutes moderate sedation was provided utilizing a total of 2 mg Versed and 100 mcg fentanyl, IV. The patient was appropriately monitored by a qualified independent observer throughout the time of moderate sedation. Antibiotic: The patient received is scheduled IV antibiotic within 1 hour of the procedure start time. No additional prophylactic antibiotic was considered indicated. Sterility: All elements of maximal sterile barrier technique, including the use of a cap, mask, sterile gown, sterile gloves, large sterile sheet, appropriate hand hygiene, and 2% chlorhexidine for cutaneous antisepsis (or acceptable alternative antiseptic per current guidelines) were utilized. Procedure: Informed consent was obtained from the patient. He was placed supine on the angiography table. Preliminary ultrasound examination of right neck revealed wide patency of right internal jugular vein, which was documented with a hard copy ultrasound image. The indwelling right IJ 14 Polish 20 cm Schon temporary hemodialysis catheter was then easily removed utilizing gentle traction. Hemostasis was achieved with manual pressure over right internal jugular vein. Right neck and upper chest were then prepped and draped in the usual sterile fashion, utilizing all elements of maximal sterile barrier technique, as described above. Moderate sedation was provided with IV Versed and Fentanyl. 1 gram Ancef was given IV, prophylactically. Using aseptic technique and local anesthesia, a small skin incision was made lateral to right internal jugular vein, just above clavicle. Using aseptic technique, local anesthesia, and direct ultrasound guidance, a micropuncture needle was successfully introduced into right internal jugular vein. The micropuncture needle was then exchanged over a microguidewire for a micropuncture sheath, through which an Amplatz wire was advanced into IVC, under fluoroscopic control. A second small skin incision was then made along upper anterior aspect of right chest. A subcutaneous tunnel was then fashioned between the right chest and supraclavicular incisions. A 15.5 F 28 cm Dura Max dialysis catheter was pulled through the subcutaneous tunnel from inferior to superior, utilizing the tunneling device provided. The right IJ venostomy tract was then sequentially dilated and the 15.5 Polish dialysis catheter was easily advanced centrally through a 16 Polish peel-away sheath, and was positioned with its tip at the level of upper right atrium utilizing fluoroscopic guidance. This catheter was demonstrated to flush and aspirate normally, was packed, and was secured at the right chest exit site utilizing 2-0 Prolene and sterile dressing. The small supraclavicular incision was closed with Skin Affix, and a sterile dressing was applied. Patient tolerated the procedure well without apparent complication. Satisfactory position of the dialysis catheter was confirmed with a single fluoroscopic spot image. Impression: Successful, uneventful ultrasound and fluoro guided placement of right IJ 15.5 F 28 cm Dura Max tunneled hemodialysis catheter, following removal of right IJ 14 Polish 20 cm Schon temporary hemodialysis catheter, as described.
[2016-10-30] MEDS: ASPIRIN ENTERIC COATED 81 MG TABLET.DR. PO SCH (16:55)
[2016-10-30] MEDS: APIXABAN 5 MG TABLET. PO SCH ×2 (16:57→21:05)
[2016-10-30] MEDS: DILTIAZEM HCL 180 MG CAP.ER.24H PO SCH (16:58)
[2016-10-30] MEDS: FAMOTIDINE 20 MG TABLET. PO SCH (21:05)
[2016-10-30] MEDS: ATORVASTATIN CALCIUM 20 MG TABLET PO SCH (21:05)
[2016-10-31] MEDS: PIPERACILLIN/TAZOBACTAM 2.25 GM in IV NORMAL SALINE 50ML 50 ML IV SCH ×5 (00:11→23:05)
[2016-10-31 06:40] LABS: BASO % 1 % (0-3); EOS % 1 % (0-3); HEMATOCRIT 24.9 % (39.0-53.0); HEMOGLOBIN 8.3 g/dL (13.0-17.5); LYMPH # 0.9 x10^3/uL (1.0-4.8); LYMPH % 12 % (24-48); MEAN CORPUSCULAR HEMOGLOBIN 29 pg (25-35); MEAN CORPUSCULAR HGB CONC 33 g/dL (31-37); MEAN CORPUSCULAR VOLUME 85 fL (79-100); MONO % 6 % (0-9); NEUT % 80 % (31-73); PLATELET COUNT 149 x10^3/uL (140-400); RED BLOOD COUNT 2.92 x10^6/uL (4.30-5.70); RED CELL DISTRIBUTION WIDTH 14.6 % (11.5-14.5)
[2016-10-31 07:00] VITALS: BP 121/66
[2016-10-31] MEDS: INSULIN ASPART 300 UNITS/3 ML INSULN.PEN SQ SCH ×6 (07:30→17:10)
[2016-10-31] MEDS: INSULIN DETEMIR 300 UNITS/3 ML INSULN.PEN. SQ SCH (08:00)
[2016-10-31] MEDS: BUDESONIDE 0.5 MG/2 ML NEBU NEB SCH ×2 (08:02→20:27)
[2016-10-31] MEDS: IPRATRPIUM/ALBUTEROL 0.5/2.5MG 3 ML NEBU. NEB SCH ×4 (08:02→20:27)
[2016-10-31] MEDS: DOCUSATE SODIUM 100 MG CAPSULE PO SCH ×2 (09:00→21:00)
[2016-10-31] MEDS: FUROSEMIDE 40 MG/4 ML VIAL IVP SCH ×2 (09:00→14:00)
--- NOTE | 2016-10-31 09:05 | PDOC ---
PULMONARY PROGRESS NOTES Subjective Feels better on N/C 02, no cough, no pain Comments Vitals Vital Signs Date Time Temp Pulse Resp B/P Pulse Ox O2 Delivery O2 Flow Rate FiO2 10/31/16 08:02 96 Nasal Cannula 2.0 10/30/16 23:00 98.4 74 19 131/55 98.4 Comments ros as mentioned as above other sys otherwise neg General: Alert Lungs: Clear Cardiovascular: S1, S2 Abdomen: Soft, Non-tender Neuro Exam: Alert, Oriented Extremities: Other (1+edema) Skin: Warm Labs Laboratory Tests Test 10/29/16 11:08 10/29/16 16:26 10/29/16 20:58 10/30/16 04:31 Glucose (Fingerstick) 86mg/dL (70-99) 68mg/dL (70-99) 122mg/dL (70-99) White Blood Count 7.1x10^3/uL (4.0-11.0) Red Blood Count 3.15x10^6/uL (4.30-5.70) Hemoglobin 8.8g/dL (13.0-17.5) Hematocrit 26.8% (39.0-53.0) Mean Corpuscular Volume 85fL (79-100) Mean Corpuscular Hemoglobin 28pg (25-35) Mean Corpuscular Hemoglobin Concent 33g/dL (31-37) Red Cell Distribution Width 14.8% (11.5-14.5) Platelet Count 184x10^3/uL (140-400) Neutrophils (%) (Auto) 77% (31-73) Lymphocytes (%) (Auto) 13% (24-48) Monocytes (%) (Auto) 7% (0-9) Eosinophils (%) (Auto) 2% (0-3) Basophils (%) (Auto) 1% (0-3) Neutrophils # (Auto) 5.4x10^3uL (1.8-7.7) Lymphocytes # (Auto) 0.9x10^3/uL (1.0-4.8) Monocytes # (Auto) 0.5x10^3/uL (0.0-1.1) Eosinophils # (Auto) 0.2x10^3/uL (0.0-0.7) Basophils # (Auto) 0.0x10^3/uL (0.0-0.2) Sodium Level 142mmol/L (136-145) Potassium Level 4.6mmol/L (3.5-5.1) Chloride Level 105mmol/L (98-107) Carbon Dioxide Level 29mmol/L (21-32) Anion Gap 8 (6-14) Blood Urea Nitrogen 47mg/dL (8-26) Creatinine 3.5mg/dL (0.7-1.3) Estimated GFR (Cockcroft-Gault) 17.4 Glucose Level 202mg/dL (70-99) Calcium Level 8.4mg/dL (8.5-10.1) Test 10/30/16 07:19 10/30/16 11:36 10/30/16 15:14 10/31/16 06:25 Glucose (Fingerstick) 162mg/dL (70-99) 136mg/dL (70-99) 148mg/dL (70-99) White Blood Count 8.0x10^3/uL (4.0-11.0) Red Blood Count 2.92x10^6/uL (4.30-5.70) Hemoglobin 8.3g/dL (13.0-17.5) Hematocrit 24.9% (39.0-53.0) Mean Corpuscular Volume 85fL (79-100) Mean Corpuscular Hemoglobin 29pg (25-35) Mean Corpuscular Hemoglobin Concent 33g/dL (31-37) Red Cell Distribution Width 14.6% (11.5-14.5) Platelet Count 149x10^3/uL (140-400) Neutrophils (%) (Auto) 80% (31-73) Lymphocytes (%) (Auto) 12% (24-48) Monocytes (%) (Auto) 6% (0-9) Eosinophils (%) (Auto) 1% (0-3) Basophils (%) (Auto) 1% (0-3) Neutrophils # (Auto) 6.4x10^3uL (1.8-7.7) Lymphocytes # (Auto) 0.9x10^3/uL (1.0-4.8) Monocytes # (Auto) 0.5x10^3/uL (0.0-1.1) Eosinophils # (Auto) 0.1x10^3/uL (0.0-0.7) Basophils # (Auto) 0.0x10^3/uL (0.0-0.2) Test 10/31/16 08:11 Glucose (Fingerstick) 178mg/dL (70-99) Laboratory Tests Test 10/30/16 11:36 10/30/16 15:14 10/31/16 06:25 10/31/16 08:11 Glucose (Fingerstick) 136mg/dL (70-99) 148mg/dL (70-99) 178mg/dL (70-99) White Blood Count 8.0x10^3/uL (4.0-11.0) Red Blood Count 2.92x10^6/uL (4.30-5.70) Hemoglobin 8.3g/dL (13.0-17.5) Hematocrit 24.9% (39.0-53.0) Mean Corpuscular Volume 85fL (79-100) Mean Corpuscular Hemoglobin 29pg (25-35) Mean Corpuscular Hemoglobin Concent 33g/dL (31-37) Red Cell Distribution Width 14.6% (11.5-14.5) Platelet Count 149x10^3/uL (140-400) Neutrophils (%) (Auto) 80% (31-73) Lymphocytes (%) (Auto) 12% (24-48) Monocytes (%) (Auto) 6% (0-9) Eosinophils (%) (Auto) 1% (0-3) Basophils (%) (Auto) 1% (0-3) Neutrophils # (Auto) 6.4x10^3uL (1.8-7.7) Lymphocytes # (Auto) 0.9x10^3/uL (1.0-4.8) Monocytes # (Auto) 0.5x10^3/uL (0.0-1.1) Eosinophils # (Auto) 0.1x10^3/uL (0.0-0.7) Basophils # (Auto) 0.0x10^3/uL (0.0-0.2) Medications Active Scripts Medications Dose Route/Sig Days Date Category Zofran Odt (Ondansetron) 8 Mg Tab.rapdis 1 Tab PO Q8HRS 09/30/16 Reported Colace (Docusate Sodium) 100 Mg Capsule 1 Cap PO BID 09/30/16 Reported Hydrocodone-Apap 7.5-325 (Hydrocodone Bit/Acetaminophen) 1 Each Tablet 1 Tab PO Q3HRS PRN 09/30/16 Reported Glimepiride 4 Mg Tablet 1 Tab PO BID 09/29/16 Reported Glimepiride 2 Mg Tablet 1 Tab PO BID 09/29/16 Reported Levemir (Insulin Detemir) 100 Unit/1 Ml Vial 30 Unit SQ HS 06/29/14 Reported Comments cxr reviewed improved Impression . 1. Acute hypoxic respiratory failure sec to heart failure, 2. Clinically, less likely pneumonia, possible lung injury 3. Underlying chronic obstructive pulmonary disease. 4. Abnormal chest x-ray with diffuse interstitial infiltrates, more compatible with pulmonary edema 5. Acute kidney injury on chronic kidney disease. s/p emergent dialysis. 6. Hypoglycemia, now being corrected. 7. Normal ejection fraction on recent echo. Plan . resp status is improving daily 1. REPEAT CXR IMPROVING 2. off BIPAP 3. Titrated 02 to keep sat 90% 4. HD PER NEPHRO, 5. Continue bronchodilators. 6. Continue antibiotics. 7. Monitor blood sugars. discussed w pt ok to dc from pulm standpoint, will sign off but available for any help. REINALDO CARDOZO MD Oct 31, 2016 09:05
--- NOTE | 2016-10-31 09:29 | PDOC ---
PROGRESS NOTES Chief Complaint Chief Complaint Hypoxic respiratory failure - CHF, diastolic - RHETT, improving - suspected underlying CKD - Hypokalemia: improved - L foot osteomyelitis; s/p I&D on 10/[address] Luis. wound vac in place. - DM2 - Afib - HTN, well controlled - COPD - acute diarrhea, resolved - metab acidosis, resolved - thrombocytopenia, chronic, stable; 80s-90s. suspect ITP - anemia, normocytic, normochromic History of Present Illness History of Present Illness Patient in no acute distress and without new complaints when evaluated this AM. Pt had permanent catheter placed without complications. SW in contact with SNU; [facility]. Acceptance and coverage approval pending. LTAC coverage was denied by insurance. Pt has been to [facility] before and approves of the plan. Vitals Vitals Vital Signs Date Time Temp Pulse Resp B/P Pulse Ox O2 Delivery O2 Flow Rate FiO2 10/31/16 08:02 96 Nasal Cannula 2.0 10/30/16 23:00 98.4 74 19 131/55 98.4 Physical Exam General: Alert, Oriented X3, Cooperative, No acute distress Heart: Other (IRR, no s3/s4) Lungs: Clear Abdomen: Normal bowel sounds, Soft Extremities: No cyanosis, Normal pulses Skin: No rashes, Other (left foot wound covered with wound vac. bilat distal foot amputations) Labs LABS Laboratory Tests Test 10/30/16 11:36 10/30/16 15:14 10/31/16 06:25 10/31/16 08:11 Glucose (Fingerstick) 136mg/dL (70-99) 148mg/dL (70-99) 178mg/dL (70-99) White Blood Count 8.0x10^3/uL (4.0-11.0) Red Blood Count 2.92x10^6/uL (4.30-5.70) Hemoglobin 8.3g/dL (13.0-17.5) Hematocrit 24.9% (39.0-53.0) Mean Corpuscular Volume 85fL (79-100) Mean Corpuscular Hemoglobin 29pg (25-35) Mean Corpuscular Hemoglobin Concent 33g/dL (31-37) Red Cell Distribution Width 14.6% (11.5-14.5) Platelet Count 149x10^3/uL (140-400) Neutrophils (%) (Auto) 80% (31-73) Lymphocytes (%) (Auto) 12% (24-48) Monocytes (%) (Auto) 6% (0-9) Eosinophils (%) (Auto) 1% (0-3) Basophils (%) (Auto) 1% (0-3) Neutrophils # (Auto) 6.4x10^3uL (1.8-7.7) Lymphocytes # (Auto) 0.9x10^3/uL (1.0-4.8) Monocytes # (Auto) 0.5x10^3/uL (0.0-1.1) Eosinophils # (Auto) 0.1x10^3/uL (0.0-0.7) Basophils # (Auto) 0.0x10^3/uL (0.0-0.2) Review of Systems Review of Systems denies fever, chills denying chest pain, shortness of air Assessment and Plan Assessmemt and Plan ASSESSMENT: - Hypoxic respiratory failure - CHF, diastolic - RHETT, improving - suspected underlying CKD - Hypokalemia: improved - L foot osteomyelitis; s/p I&D on 10/[address] Luis. wound vac in place. - DM2, poorly controlled - Afib - HTN, well controlled - COPD - acute diarrhea, resolved - metab acidosis, resolved - thrombocytopenia, chronic, stable; 80s-90s. suspect ITP - anemia, normocytic, normochromic PLAN: - Ready for discharge to SNU. Per SW: placement pending- [facility]. Awaiting acceptance and coverage approval. LTAC coverage was denied by insurance - Permanent catheter placed yesterday without incident. - initiate outpt HD schedule per nephrology; SW arranging with [facility] - per ID: cont Zosyn - repeat daily labs - cont nebs and O2 supplementation - cont wound care - PTOT - appreciate all subspecialists on the case Problems: Comment Review of Relevant I have reviewed the following items jovan (where applicable) has been applied. Labs Laboratory Tests Test 10/29/16 11:08 10/29/16 16:26 10/29/16 20:58 10/30/16 04:31 Glucose (Fingerstick) 86mg/dL (70-99) 68mg/dL (70-99) 122mg/dL (70-99) White Blood Count 7.1x10^3/uL (4.0-11.0) Red Blood Count 3.15x10^6/uL (4.30-5.70) Hemoglobin 8.8g/dL (13.0-17.5) Hematocrit 26.8% (39.0-53.0) Mean Corpuscular Volume 85fL (79-100) Mean Corpuscular Hemoglobin 28pg (25-35) Mean Corpuscular Hemoglobin Concent 33g/dL (31-37) Red Cell Distribution Width 14.8% (11.5-14.5) Platelet Count 184x10^3/uL (140-400) Neutrophils (%) (Auto) 77% (31-73) Lymphocytes (%) (Auto) 13% (24-48) Monocytes (%) (Auto) 7% (0-9) Eosinophils (%) (Auto) 2% (0-3) Basophils (%) (Auto) 1% (0-3) Neutrophils # (Auto) 5.4x10^3uL (1.8-7.7) Lymphocytes # (Auto) 0.9x10^3/uL (1.0-4.8) Monocytes # (Auto) 0.5x10^3/uL (0.0-1.1) Eosinophils # (Auto) 0.2x10^3/uL (0.0-0.7) Basophils # (Auto) 0.0x10^3/uL (0.0-0.2) Sodium Level 142mmol/L (136-145) Potassium Level 4.6mmol/L (3.5-5.1) Chloride Level 105mmol/L (98-107) Carbon Dioxide Level 29mmol/L (21-32) Anion Gap 8 (6-14) Blood Urea Nitrogen 47mg/dL (8-26) Creatinine 3.5mg/dL (0.7-1.3) Estimated GFR (Cockcroft-Gault) 17.4 Glucose Level 202mg/dL (70-99) Calcium Level 8.4mg/dL (8.5-10.1) Test 10/30/16 07:19 10/30/16 11:36 10/30/16 15:14 10/31/16 06:25 Glucose (Fingerstick) 162mg/dL (70-99) 136mg/dL (70-99) 148mg/dL (70-99) White Blood Count 8.0x10^3/uL (4.0-11.0) Red Blood Count 2.92x10^6/uL (4.30-5.70) Hemoglobin 8.3g/dL (13.0-17.5) Hematocrit 24.9% (39.0-53.0) Mean Corpuscular Volume 85fL (79-100) Mean Corpuscular Hemoglobin 29pg (25-35) Mean Corpuscular Hemoglobin Concent 33g/dL (31-37) Red Cell Distribution Width 14.6% (11.5-14.5) Platelet Count 149x10^3/uL (140-400) Neutrophils (%) (Auto) 80% (31-73) Lymphocytes (%) (Auto) 12% (24-48) Monocytes (%) (Auto) 6% (0-9) Eosinophils (%) (Auto) 1% (0-3) Basophils (%) (Auto) 1% (0-3) Neutrophils # (Auto) 6.4x10^3uL (1.8-7.7) Lymphocytes # (Auto) 0.9x10^3/uL (1.0-4.8) Monocytes # (Auto) 0.5x10^3/uL (0.0-1.1) Eosinophils # (Auto) 0.1x10^3/uL (0.0-0.7) Basophils # (Auto) 0.0x10^3/uL (0.0-0.2) Test 10/31/16 08:11 Glucose (Fingerstick) 178mg/dL (70-99) Laboratory Tests Test 10/30/16 11:36 10/30/16 15:14 10/31/16 06:25 10/31/16 08:11 Glucose (Fingerstick) 136mg/dL (70-99) 148mg/dL (70-99) 178mg/dL (70-99) White Blood Count 8.0x10^3/uL (4.0-11.0) Red Blood Count 2.92x10^6/uL (4.30-5.70) Hemoglobin 8.3g/dL (13.0-17.5) Hematocrit 24.9% (39.0-53.0) Mean Corpuscular Volume 85fL (79-100) Mean Corpuscular Hemoglobin 29pg (25-35) Mean Corpuscular Hemoglobin Concent 33g/dL (31-37) Red Cell Distribution Width 14.6% (11.5-14.5) Platelet Count 149x10^3/uL (140-400) Neutrophils (%) (Auto) 80% (31-73) Lymphocytes (%) (Auto) 12% (24-48) Monocytes (%) (Auto) 6% (0-9) Eosinophils (%) (Auto) 1% (0-3) Basophils (%) (Auto) 1% (0-3) Neutrophils # (Auto) 6.4x10^3uL (1.8-7.7) Lymphocytes # (Auto) 0.9x10^3/uL (1.0-4.8) Monocytes # (Auto) 0.5x10^3/uL (0.0-1.1) Eosinophils # (Auto) 0.1x10^3/uL (0.0-0.7) Basophils # (Auto) 0.0x10^3/uL (0.0-0.2) Microbiology 10/25/16 Blood Culture - Final, Complete NO GROWTH AFTER 5 DAYS 10/21/16 Urine Culture - Final, Complete 10/21/16 Urine Culture Result 1 (HERBERT) - Final, Complete 10/22/16 Gram Stain - Final, Complete Medications Current Medications Diltiazem HCl 20 mg 20 mg 1X ONCE IVP Last administered on 10/20/16 13:35; Start 10/20/16 at 13:30; Stop 10/20/16 at 13:31; Status DC Diltiazem HCl 125 mg/Dextrose 125 ml @ 10 mls/hr 1X ONCE IV Last administered on 10/20/16 13:49; Start 10/20/16 at 13:30; Stop 10/20/16 at 19:37; Status DC Sodium Chloride (Iv Sodium Chloride 0.9% 1000ml Bag) 1,000 ml @ 100 mls/hr Q10H IV Last administered on 10/20/16 13:45; Start 10/20/16 at 13:30; Stop at 23:29; Status DC Diltiazem HCl (Cardizem) 20 mg 1X ONCE IVP Last administered on 10/20/16 14:16 ; Start 10/20/16 at 14:00; Stop 10/20/16 at 14:01; Status DC Vancomycin HCl (Vanco Per Pharmacy) 1 each PRN DAILY PRN MC SEE COMMENTS Last administered on 10/20/16 16:49; Start 10/20/16 at 14:45; Stop 10/21/16 at 07:42; Status DC Piperacillin Sod/ Tazobactam Sod 1 each 1 each PRN DAILY PRN MC SEE COMMENTS; Start 10/20/16 at 14:45; Stop 10/21/16 at 07:49; Status DC Vancomycin HCl 2 gm/Sodium Chloride 500 ml @ 250 mls/hr 1X ONCE IV Last administered on 10/20/16 15:45; Start 10/20/16 at 15:00; Stop 10/20/16 at 16:59; Status DC Piperacillin Sod/ Tazobactam Sod/ Sodium Chloride (Zosyn/Iv Sodium Chloride 0.9 % 50ml) 50 ml @ 100 mls/hr 1X ONCE IV Last administered on 10/20/16 15:04; Start 10/20/16 at 15:00; Stop 10/20/16 at 15:29; Status DC Ondansetron HCl (Zofran) 4 mg PRN Q8HRS PRN IV NAUSEA/VOMITING; Start 10/20/16 at 15:00; Stop 10/20/16 at 15:16; Status DC Fentanyl Citrate 50 mcg 50 mcg PRN Q2HR PRN IV PAIN; Start 10/20/16 at 15:00; Stop 10/21/16 at 14:59; Status DC Sodium Chloride (Iv Sodium Chloride 0.9% 1000ml Bag) 1,000 ml @ 100 mls/hr Q10H IV Last administered on 10/21/16 11:30; Start 10/20/16 at 15:30; Stop at 15:29; Status DC Acetaminophen (Tylenol) 650 mg PRN Q4HRS PRN PO FEVER; Start 10/20/16 at 15:00; Stop 10/21/16 at 14:59; Status DC Ondansetron HCl (Zofran) 4 mg PRN Q6HRS PRN IV NAUSEA/VOMITING; Start 10/20/16 at 15:12 Insulin Aspart (Novolog) 0-9 UNITS TIDWMEALS SQ Last administered on 10/28/16 11:33; Start 10/20/16 at 17:00 Dextrose 12.5 gm PRN Q15MIN PRN IV SEE COMMENTS Last administered on 10/26/16 23:42; Start 10/20/16 at 15:15 Docusate Sodium (Colace) 100 mg BID PO Last administered on 10/26/16 21:17; Start 10/20/16 at 21:00 Glimepiride (Amaryl) 2 mg BID PO ; Start 10/20/16 at 21:00; Status UNV Acetaminophen/ Hydrocodone Bitart (Lortab 7.5/325) 1 tab PRN Q3HRS PRN PO PAIN Last administered on 10/26/16 15:27; Start 10/20/16 at 15:15 Glimepiride (Amaryl) 4 mg BIDWMEALS PO Last administered on 10/20/16 17:32; Start 10/20/16 at 17:00; Stop 10/21/16 at 14:52; Status DC Insulin Detemir (Levemir) 30 units QHS SQ Last administered on 10/20/16 21:03; Start 10/20/16 at 21:00; Stop 10/21/16 at 14:52; Status DC Ondansetron HCl 4 mg 4 mg Q8HRS PO Last administered on 10/21/16 06:17; Start 10/20/16 at 22:00; Stop 10/21/16 at 17:24; Status DC Sodium Chloride 500 ml @ 500 mls/hr 1X ONCE IV ; Start 10/20/16 at 15:30; Stop 10/20/16 at 16:29; Status DC Piperacillin Sod/ Tazobactam Sod 2.25 gm/Sodium Chloride 50 ml @ 100 mls/hr Q6HRS IV Last administered on 10/27/16 06:03; Start 10/21/16 at 00:00; Stop at 07:43; Status DC Vancomycin HCl/ Sodium Chloride (Iv Sodium Chloride 0.9% 250ml) 250 ml @ 167 mls/hr Q24H IV ; Start 10/21/16 at 16:00; Stop 10/21/16 at 16:00; Status DC Vancomycin HCl 1 each 1 each 1X ONCE MC ; Start 10/22/16 at 15:30; Stop 10/22/16 at 15:31; Status Cancel Dopamine HCl/ Dextrose 250 ml @ 13.183 mls/ hr CONT PRN IV SEE I/O RECORD Last administered on 10/20/16 20:38; Start 10/20/16 at 19:30; Stop 10/28/16 at 15 :26; Status DC Digoxin (Lanoxin) 250 mcg 1X ONCE IV Last administered on 10/20/16 21:02; Start 10/20/16 at 20:45; Stop 10/20/16 at 20:46; Status DC Digoxin (Lanoxin) 250 mcg 1X ONCE IV Last administered on 10/21/16 01:48; Start 10/21/16 at 02:00; Stop 10/21/16 at 02:01; Status DC Digoxin 250 mcg 250 mcg 1X ONCE IV Last administered on 10/21/16 04:12; Start 10/21/16 at 04:15; Stop 10/21/16 at 04:16; Status DC Diltiazem HCl 125 mg/Dextrose 125 ml @ 0 mls/hr CONT PRN IV SEE I/O RECORD Last administered on 10/21/16 23:03; Start 10/21/16 at 04:15; Stop 10/22/16 at 09: 44; Status DC Linezolid 300 ml @ 300 mls/hr Q12HR IV Last administered on 10/22/16 20:18; Start 10/21/16 at 09:00; Stop 10/23/16 at 07:26; Status DC Magnesium Sulfate/ Dextrose 50 ml @ 25 mls/hr PRN DAILY PRN IV for Mag < 1.7 on am labs Last administered on 10/22/16 15:15; Start 10/21/16 at 09:45 Albumin Human (Plasmanate) 500 ml @ 125 mls/hr 1X ONCE IV Last administered on 10/21/16 10:25; Start 10/21/16 at 09:45; Stop 10/21/16 at 13:44; Status DC Ondansetron HCl (Zofran) 4 mg PRN Q6HRS PRN IV Nausea; Start 10/21/16 at 10:00; Stop 10/22/16 at 09:59; Status DC Fentanyl Citrate (Fentanyl 2ml Vial) 25 mcg PRN Q5MIN PRN IV MILD PAIN; Start 10/21/16 at 10:00; Stop 10/22/16 at 09:59; Status DC Fentanyl Citrate (Fentanyl 2ml Vial) 50 mcg PRN Q5MIN PRN IV MODERATE PAIN; Start 10/21/16 at 10:00; Stop 10/22/16 at 09:59; Status DC Morphine Sulfate 1 mg 1 mg PRN Q10MIN PRN IV SEVERE PAIN; Start 10/21/16 at 10: 00; Stop 10/22/16 at 09:59; Status DC Lactated Ringer's (Iv Lactated Ringers) 1,000 ml @ 30 mls/hr Q24H IV ; Start at 09:50; Stop 10/21/16 at 21:49; Status DC Lidocaine HCl 2 ml 1X PRN PRN ID IV START; Start 10/21/16 at 10:00; Stop at 09:59; Status DC Hydromorphone HCl (Dilaudid) 0.5 mg PRN Q10MIN PRN IV SEV PAIN,Second choice; Start 10/21/16 at 10:00; Stop 10/22/16 at 09:59; Status DC Prochlorperazine Edisylate 5 mg 5 mg PACU PRN PRN IV NAUSEA; Start 10/21/16 at 10:00; Stop 10/22/16 at 09:59; Status DC Sodium Chloride (Iv Sodium Chloride 0.9% 500ml Bag) 500 ml @ 0 mls/hr PRN QID PRN IV UO< 30cc/hr over previous 6hrs; Start 10/21/16 at 10:15; Stop 10/21/16 at 17:27; Status DC Ondansetron HCl (Zofran) 4 mg PRN Q6HRS PRN IV Nausea; Start 10/21/16 at 11:30; Stop 10/22/16 at 11:29; Status DC Morphine Sulfate 1 mg 1 mg PRN Q10MIN PRN IV SEVERE PAIN; Start 10/21/16 at 11: 30; Stop 10/22/16 at 11:29; Status DC Lactated Ringer's (Iv Lactated Ringers) 1,000 ml @ 0 mls/hr Q0M IV ; Start 10/21 at 11:19; Stop 10/21/16 at 23:18; Status DC Lidocaine HCl 2 ml 1X PRN PRN ID IV START; Start 10/21/16 at 11:30; Stop at 11:29; Status DC Hydromorphone HCl (Dilaudid) 0.5 mg PRN Q10MIN PRN IV SEV PAIN,Second choice; Start 10/21/16 at 11:30; Stop 10/22/16 at 11:29; Status DC Prochlorperazine Edisylate (Compazine) 5 mg PACU PRN PRN IV NAUSEA; Start at 11:30; Stop 10/22/16 at 11:29; Status DC Atorvastatin Calcium (Lipitor) 20 mg QHS PO Last administered on 10/30/16 21: 05; Start 10/21/16 at 21:00 Aspirin (Ecotrin) 81 mg DAILYWBKFT PO Last administered on 10/30/16t 16:55; Start 10/21/16 at 12:00 Ondansetron HCl (Zofran) 4 mg PRN Q6HRS PRN IV Nausea; Start 10/22/16 at 07:00; Stop 10/23/16 at 06:59; Status DC Morphine Sulfate 1 mg 1 mg PRN Q10MIN PRN IV SEVERE PAIN; Start 10/22/16 at 07: 00; Stop 10/23/16 at 06:59; Status DC Lactated Ringer's (Iv Lactated Ringers) 1,000 ml @ 30 mls/hr Q24H IV ; Start at 07:00; Stop 10/22/16 at 15:07; Status DC Lidocaine HCl 2 ml 1X PRN PRN ID IV START; Start 10/22/16 at 07:00; Stop at 06:59; Status DC Hydromorphone HCl (Dilaudid) 0.5 mg PRN Q10MIN PRN IV SEVERE PAIN, Second choice; Start 10/22/16 at 07:00; Stop 10/23/16 at 06:59; Status DC Prochlorperazine Edisylate (Compazine) 5 mg PACU PRN PRN IV NAUSEA; Start at 07:00; Stop 10/23/16 at 06:59; Status DC Aspirin (Ecotrin) 81 mg DAILYWBKFT PO ; Start 10/22/16 at 08:00; Status UNV Insulin Detemir (Levemir) 20 units QHS SQ ; Start 10/21/16 at 21:00; Stop at 08:29; Status DC Ondansetron HCl 4 mg 4 mg PRN Q8HRS PRN PO NAUSEA; Start 10/22/16 at 14:00 Sodium Chloride 1,000 ml @ 175 mls/hr Q5H43M IV Last administered on 05:30; Start 10/21/16 at 18:00; Stop 10/23/16 at 07:20; Status DC Dextrose 1,000 ml @ 75 mls/hr [id number] IV Last administered on 10/22/16 04:54; Start 10/22/16 at 04:45; Stop 10/22/16 at 15:05; Status DC Bupivacaine HCl (Sensorcaine Mpf 0.5%) 30 ml STK-MED ONCE .ROUTE ; Start at 06:45; Stop 10/22/16 at 06:46; Status DC Lidocaine HCl 20 ml 20 ml STK-MED ONCE .ROUTE ; Start 10/22/16 at 06:46; Stop 10/22/16 at 06:47; Status DC Propofol (Diprivan) 20 ml @ As Directed STK-MED ONCE IV ; Start 10/22/16 at 08:02 ; Stop 10/22/16 at 08:03; Status DC Lidocaine HCl 100 mg STK-MED ONCE .ROUTE ; Start 10/22/16 at 08:02; Stop 10/22/16 at 08:03; Status DC Ondansetron HCl (Zofran) 4 mg STK-MED ONCE .ROUTE ; Start 10/22/16 at 08:31; Stop 10/22/16 at 08:32; Status DC Phenylephrine HCl 1 mg STK-MED ONCE IV ; Start 10/22/16 at 08:31; Stop 10/22/16 at 08:32; Status DC Dexamethasone Sodium Phosphate (Decadron) 20 mg STK-MED ONCE .ROUTE ; Start 10/22 at 08:48; Stop 10/22/16 at 08:49; Status DC Sevoflurane (Ultane) 30 ml STK-MED ONCE IH ; Start 10/22/16 at 08:48; Stop at 08:49; Status DC Diltiazem HCl (Cardizem) 30 mg Q6HRS PO Last administered on 10/27/16 11:27; Start 10/22/16 at 10:00; Stop 10/27/16 at 12:31; Status DC Metoprolol Tartrate 5 mg 5 mg PRN Q6HRS PRN IVP ELEVATED BP, SEE COMMENTS; Start 10/22/16 at 09:45 Albumin Human (Plasmanate) 500 ml @ 125 mls/hr 1X ONCE IV Last administered on 10/22/16 11:20; Start 10/22/16 at 09:45; Stop 10/22/16 at 13:44; Status DC Info (Anti-Coagulation Monitoring By Pharmacy) 1 each PRN DAILY PRN MC SEE COMMENTS; Start 10/22/16 at 15:15; Status UNV Heparin Sodium (Porcine) 5,000 unit Q12HR SQ Last administered on 10/28/16 11: 08; Start 10/22/16 at 21:00; Stop 10/28/16 at 16:02; Status DC Loperamide HCl (Imodium) 2 mg PRN Q15MIN PRN PO DIARRHEA Last administered on 09:27; Start 10/22/16 at 20:00 Insulin Human Regular (Novolin R Vial) 10 unit 1X ONCE IV Last administered on 10/22/16 23:52; Start 10/22/16 at 01:00; Stop 10/22/16 at 23:46; Status DC Insulin Detemir (Levemir) 10 units 1X ONCE SQ Last administered on 10/22/16 23 :53; Start 10/22/16 at 23:45; Stop 10/22/16 at 23:46; Status DC Insulin Human Regular 10 unit 10 unit 1X ONCE IV Last administered on 00:09; Start 10/23/16 at 00:00; Stop 10/23/16 at 00:01; Status DC Sodium Chloride 38.75 meq/Sodium Bicarbonate 75 meq/Sterile Water 1,084.6875 ml @ 150 mls/hr CONT PRN IV SEE I/O RECORD Last administered on 10/24/16 07:12; Start 10/23/16 at 07:30 Albumin Human (Albuminar) 100 ml @ 100 mls/hr TID IV Last administered on 10/24 21:23; Start 10/23/16 at 09:00; Stop 10/24/16 at 21:59; Status DC Heparin Sodium (Porcine) 10,000 unit STK-MED ONCE .ROUTE ; Start 10/23/16 at 07: 55; Stop 10/23/16 at 07:56; Status DC Lidocaine/Sodium Bicarbonate 20 ml 20 ml STK-MED ONCE IJ ; Start 10/23/16 at 07: 55; Stop 10/23/16 at 07:56; Status DC Heparin Sodium/ Sodium Chloride 500 ml @ As Directed STK-MED ONCE .ROUTE ; Start 10/23/16 at 07:55; Stop 10/23/16 at 07:56; Status DC Insulin Detemir (Levemir) 20 units DAILY08 SQ ; Start 10/23/16 at 08:00; Stop at 08:01; Status DC Insulin Aspart (Novolog) 10 units TIDAC SQ Last administered on 10/23/16 17:46 ; Start 10/23/16 at 11:30; Stop 10/24/16 at 11:12; Status DC Insulin Detemir (Levemir) 30 units DAILY08 SQ Last administered on 10/23/16 09 :55; Start 10/23/16 at 08:30; Stop 10/24/16 at 11:12; Status DC Lidocaine/Sodium Bicarbonate (Buffered Lidocaine 1%) 3 ml 1X ONCE IJ Last administered on 10/23/16 08:48; Start 10/23/16 at 08:30; Stop 10/23/16 at 08:31 ; Status DC Heparin Sodium/ Sodium Chloride 60 unit 1X ONCE IV Last administered on 08:48; Start 10/23/16 at 08:30; Stop 10/23/16 at 08:31; Status DC Heparin Sodium (Porcine) 2,500 unit 1X ONCE INT CAT Last administered on 08:48; Start 10/23/16 at 08:30; Stop 10/23/16 at 08:31; Status DC Albuterol/ Ipratropium (Duoneb) 3 ml RTQID NEB Last administered on 10/31/16 08:02; Start 10/24/16 at 12:00 Albuterol/ Ipratropium (Duoneb) 3 ml 1X ONCE NEB Last administered on 09:11; Start 10/24/16 at 09:00; Stop 10/24/16 at 09:01; Status DC Budesonide (Pulmicort) 0.5 mg RTBID NEB Last administered on 10/31/16 08:02; Start 10/24/16 at 10:00 Insulin Aspart (Novolog) 7 units TIDAC SQ Last administered on 10/29/16 12:24 ; Start 10/24/16 at 11:30 Insulin Detemir (Levemir) 20 units DAILY08 SQ Last administered on 10/29/16 09 :26; Start 10/25/16 at 08:00 Potassium Chloride 20 meq 20 meq 1X ONCE PO Last administered on 10/24/16 18: 28; Start 10/24/16 at 12:00; Stop 10/24/16 at 12:01; Status DC Sodium Chloride 1,000 ml @ 1,000 mls/hr Q1H PRN IV hypotension; Start 10/24/16 at 13:00; Stop 10/24/16 at 18:59; Status DC Albumin Human (Albuminar) 200 ml @ 200 mls/hr 1X PRN PRN IV Hypotension; Start 10/24/16 at 14:00; Stop 10/24/16 at 19:59; Status DC Acetaminophen (Tylenol) 500 mg 1X PRN PRN PO MILD PAIN / TEMP; Start 10/24/16 at 14:00; Stop 10/25/16 at 13:59; Status DC Diphenhydramine HCl (Benadryl) 25 mg 1X PRN PRN IV ITCHING; Start 10/24/16 at 14:00; Stop 10/25/16 at 13:59; Status DC Diphenhydramine HCl (Benadryl) 25 mg 1X PRN PRN IV ITCHING; Start 10/24/16 at 14:00; Stop 10/25/16 at 13:59; Status DC Info (PHARMACY MONITORING -- do not chart) 1 each PRN DAILY PRN MC SEE COMMENTS ; Start 10/24/16 at 14:00; Stop 10/25/16 at 13:16; Status DC Potassium Chloride 20 meq 20 meq 1X ONCE PO ; Start 10/24/16 at 18:30; Stop 07/02 at 18:31; Status DC Amino Acids/ Electrolytes (Clinimix E 2.75%-5% Solution) 1,000 ml @ 55 mls/hr [id number] IV Last administered on 10/27/16 00:52; Start 10/25/16 at 12:00; Stop 10/27/16 at 14:10; Status DC Hydralazine HCl 10 mg 10 mg PRN Q4HRS PRN IVP ELEVATED BP, SEE COMMENTS Last administered on 10/27/16 06:05; Start 10/25/16 at 12:45 Sodium Chloride 1,000 ml @ 1,000 mls/hr Q1H PRN IV hypotension; Start 10/25/16 at 13:07; Stop 10/25/16 at 19:06; Status DC Albumin Human (Albuminar) 200 ml @ 200 mls/hr 1X PRN PRN IV Hypotension Last administered on 10/25/16 14:30; Start 10/25/16 at 13:15; Stop 10/25/16 at 19:14 ; Status DC Acetaminophen (Tylenol) 500 mg 1X PRN PRN PO MILD PAIN / TEMP; Start 10/25/16 at 13:15; Stop 10/26/16 at 13:14; Status DC Diphenhydramine HCl (Benadryl) 25 mg 1X PRN PRN IV ITCHING; Start 10/25/16 at 13:15; Stop 10/26/16 at 13:14; Status DC Diphenhydramine HCl (Benadryl) 25 mg 1X PRN PRN IV ITCHING; Start 10/25/16 at 13:15; Stop 10/26/16 at 13:14; Status DC Info (PHARMACY MONITORING -- do not chart) 1 each PRN DAILY PRN MC SEE COMMENTS ; Start 10/25/16 at 13:15 Famotidine (Pepcid) 20 mg QHS IVP Last administered on 10/26/16 21:17; Start 10/26/16 at 21:00; Stop 10/27/16 at 11:20; Status DC Furosemide 40 mg 40 mg [id number] IVP Last administered on 10/29/16 09:11; Start at 12:00 Sodium Chloride 1,000 ml @ 1,000 mls/hr Q1H PRN IV hypotension; Start 10/26/16 at 13:55; Stop 10/26/16 at 19:54; Status DC Sodium Chloride (Iv Sodium Chloride 0.9% 1000ml Bag) 1,000 ml @ 400 mls/hr Q2H30M PRN IV PATENCY; Start 10/26/16 at 13:55; Stop 10/27/16 at 01:54; Status DC Info 1 each 1 each PRN DAILY PRN MC SEE COMMENTS; Start 10/26/16 at 14:00; Status UNV Meropenem/Sodium Chloride (Merrem/Iv Sodium Chloride 0.9% 50ml) 50 ml @ 100 mls /hr Q6HRS IV Last administered on 10/28/16 06:00; Start 10/27/16 at 12:00; Stop 10/28/16 at 09:22; Status DC Metoprolol Tartrate (Lopressor) 25 mg BID PO Last administered on 10/30/16 21: 06; Start 10/27/16 at 12:00 Famotidine (Pepcid) 20 mg QHS PO Last administered on 10/30/16 21:05; Start at 21:00 Diltiazem HCl (Cardizem 24hr Cd) 180 mg DAILYBFRSUP PO Last administered on 16:58; Start 10/27/16 at 17:00 Regadenoson (Lexiscan) 0.4 mg 1X ONCE IV Last administered on 10/28/16 09:18 ; Start 10/28/16 at 07:45; Stop 10/28/16 at 07:46; Status DC Lactobacillus Acidophilus 1 tab 1 tab TIDWMEALS PO Last administered on 16:57; Start 10/28/16 at 12:00 Meropenem 500 mg/ Sodium Chloride 50 ml @ 100 mls/hr Q12HR IV Last administered on 10/29/16 21:36; Start 10/28/16 at 21:00; Stop 10/30/16 at 09:05 ; Status DC Sodium Chloride 1,000 ml @ 1,000 mls/hr Q1H PRN IV hypotension; Start 10/28/16 at 09:34; Stop 10/28/16 at 15:33; Status DC Albumin Human (Albuminar) 200 ml @ 200 mls/hr 1X PRN PRN IV Hypotension; Start 10/28/16 at 09:45; Stop 10/28/16 at 15:44; Status DC Acetaminophen (Tylenol) 500 mg 1X PRN PRN PO MILD PAIN / TEMP; Start 10/28/16 at 09:45; Stop 10/28/16 at 16:02; Status DC Diphenhydramine HCl (Benadryl) 25 mg 1X PRN PRN IV ITCHING; Start 10/28/16 at 09:45; Stop 10/28/16 at 16:02; Status DC Diphenhydramine HCl (Benadryl) 25 mg 1X PRN PRN IV ITCHING; Start 10/28/16 at 09:45; Stop 10/28/16 at 16:02; Status DC Sodium Chloride (Normal Saline Flush) 10 ml 1X PRN PRN IV AP catheter pack; Start 10/28/16 at 09:45; Stop 10/28/16 at 16:02; Status DC Sodium Chloride (Normal Saline Flush) 10 ml 1X PRN PRN IV LICENSE ISSUER catheter pack; Start 10/28/16 at 09:45; Stop 10/28/16 at 16:02; Status DC Labetalol HCl 10 mg 10 mg PRN Q1HR PRN IVP SBP > 180; Start 10/28/16 at 09:45; Stop 10/28/16 at 16:02; Status DC Sodium Chloride (Iv Sodium Chloride 0.9% 1000ml Bag) 1,000 ml @ 400 mls/hr Q2H30M PRN IV PATENCY; Start 10/28/16 at 09:34; Stop 10/28/16 at 21:33; Status DC Info 1 each 1 each PRN DAILY PRN MC SEE COMMENTS; Start 10/28/16 at 09:45; Status UNV Sodium Chloride (Iv Sodium Chloride 0.9% 1000ml Bag) 1,000 ml @ 1,000 mls/hr Q1H PRN IV hypotension; Start 10/28/16 at 12:47; Stop 10/28/16 at 18:46; Status UNV Diphenhydramine HCl (Benadryl) 25 mg 1X PRN PRN IV ITCHING; Start 10/28/16 at 13:00; Stop 10/29/16 at 12:59; Status UNV Diphenhydramine HCl (Benadryl) 25 mg 1X PRN PRN IV ITCHING; Start 10/28/16 at 13:00; Stop 10/29/16 at 12:59; Status UNV Sodium Chloride (Normal Saline Flush) 10 ml 1X PRN PRN IV AP catheter pack; Start 10/28/16 at 13:00; Stop 10/29/16 at 12:59; Status UNV Sodium Chloride 10 ml 10 ml 1X PRN PRN IV LICENSE ISSUER catheter pack; Start 10/28/16 at 13:00; Stop 10/29/16 at 12:59; Status UNV Sodium Chloride (Iv Sodium Chloride 0.9% 1000ml Bag) 1,000 ml @ 400 mls/hr Q2H30M PRN IV PATENCY; Start 10/28/16 at 12:47; Stop 10/29/16 at 00:46; Status UNV Info (PHARMACY MONITORING -- do not chart) 1 each PRN DAILY PRN MC SEE COMMENTS ; Start 10/28/16 at 13:00; Status UNV Apixaban 5 mg 5 mg BID PO Last administered on 10/30/16t 21:05; Start 10/28/16 at 21:00 Sodium Chloride 1,000 ml @ 1,000 mls/hr Q1H PRN IV hypotension; Start 10/30/16 at 08:30; Stop 10/30/16 at 15:00; Status DC Albumin Human 200 ml @ 200 mls/hr 1X PRN PRN IV Hypotension; Start 10/30/16 at 08:30; Stop 10/30/16 at 14:29; Status DC Sodium Chloride (Iv Sodium Chloride 0.9% 1000ml Bag) 1,000 ml @ 400 mls/hr Q2H30M PRN IV PATENCY; Start 10/30/16 at 08:21; Stop 10/30/16 at 16:00; Status DC Info 1 each 1 each PRN DAILY PRN MC SEE COMMENTS; Start 10/30/16 at 08:30; Status UNV Piperacillin Sod/ Tazobactam Sod/ Sodium Chloride (Zosyn/Iv Sodium Chloride 0.9 % 50ml) 50 ml @ 100 mls/hr Q6HRS IV Last administered on 10/31/16 05:42; Start 10/30/16 at 12:00 Info (Anti-Coagulation Monitoring By Pharmacy) 1 each PRN DAILY PRN MC SEE COMMENTS Last administered on 10/30/16 12:44; Start 10/30/16 at 12:45 Heparin Sodium (Porcine) 10,000 unit STK-MED ONCE .ROUTE ; Start 10/30/16 at 13: 21; Stop 10/30/16 at 13:22; Status DC Lidocaine/ Epinephrine 20 ml 20 ml STK-MED ONCE .ROUTE ; Start 10/30/16 at 13:21 ; Stop 10/30/16 at 13:22; Status DC Heparin Sodium/ Sodium Chloride 500 ml @ As Directed STK-MED ONCE .ROUTE ; Start 10/30/16 at 13:21; Stop 10/30/16 at 13:22; Status DC Midazolam HCl (Versed) 2 mg STK-MED ONCE .ROUTE ; Start 10/30/16 at 13:33; Stop 10/30/16 at 13:34; Status DC Fentanyl Citrate 100 mcg 100 mcg STK-MED ONCE .ROUTE ; Start 10/30/16 at 13:34; Stop 10/30/16 at 13:35; Status DC Cefazolin Sodium (Ancef 1gm Ivpb For Omni) 0 ml @ As Directed STK-MED ONCE IV ; Start 10/30/16 at 13:34; Stop 10/30/16 at 13:35; Status DC Heparin Sodium/ Sodium Chloride 1,000 unit 1X ONCE IART Last administered on 14:18; Start 10/30/16 at 14:00; Stop 10/30/16 at 14:12; Status DC Midazolam HCl (Versed) 2 mg 1X ONCE IV Last administered on 10/30/16 14:18; Start 10/30/16 at 14:00; Stop 10/30/16 at 14:12; Status DC Fentanyl Citrate (Fentanyl 2ml Vial) 100 mcg 1X ONCE IV Last administered on 14:19; Start 10/30/16 at 14:00; Stop 10/30/16 at 14:12; Status DC Lidocaine/ Epinephrine (Xylocaine 1%-Epi 1:100,000) 9 ml 1X ONCE IJ Last administered on 10/30/16t 14:18; Start 10/30/16 at 14:00; Stop 10/30/16 at 14:12 ; Status DC Heparin Sodium (Porcine) 4,300 unit 1X ONCE INT CAT Last administered on t 14:18; Start 10/30/16 at 14:00; Stop 10/30/16 at 14:12; Status DC Active Scripts Active Reported Zofran Odt (Ondansetron) 8 Mg Tab.rapdis 1 Tab PO Q8HRS Colace (Docusate Sodium) 100 Mg Capsule 1 Cap PO BID Hydrocodone-Apap 7.5-325 (Hydrocodone Bit/Acetaminophen) 1 Each Tablet 1 Tab PO Q3HRS PRN Glimepiride 4 Mg Tablet 1 Tab PO BID Glimepiride 2 Mg Tablet 1 Tab PO BID Levemir (Insulin Detemir) 100 Unit/1 Ml Vial 30 Unit SQ HS Vitals/I & O Vital Sign - Last 24 Hours 10/30/16 10/30/16 10/30/16 10/30/16 12:20 14:19 14:19 14:30 Pulse 95 88 Resp 14 14 18 B/P 139/56 Pulse Ox 94 99 99 98 O2 Delivery Room Air Nasal Cannula Nasal Cannula Nasal Cannula O2 Flow Rate 2.0 2.0 2.0 10/30/16 10/30/16 10/30/16 10/30/16 14:45 15:00 15:15 15:30 Pulse 88 86 79 82 B/P 148/58 138/53 141/58 137/55 10/30/16 10/30/16 10/30/16 10/30/16 16:00 16:30 16:58 17:11 Pulse 93 82 89 B/P 141/58 134/60 126/89 O2 Delivery Nasal Cannula O2 Flow Rate 2.0 10/30/16 10/30/16 10/30/16 10/30/16 19:00 20:00 20:34 20:35 Temp 100.2 100.2 Pulse 84 Resp 19 B/P 127/50 Pulse Ox 97 94 94 O2 Delivery Nasal Cannula Nasal Cannula Nasal Cannula Nasal Cannula O2 Flow Rate 3.5 4.0 2.0 2.0 10/30/16 10/30/1610/31/17 21:06 23:00 08:02 Temp 98.4 98.4 Pulse 78 74 Resp 19 B/P 123/50 131/55 Pulse Ox 97 96 O2 Delivery Nasal Cannula Nasal Cannula O2 Flow Rate 3.5 2.0 Intake and Output 10/30/16 10/30/16 10/31/16 15:00 23:00 07:00 Intake Total 420 ml Output Total 375 ml Balance 420 ml -375 ml OSCAR SOLIS III DO Oct 31, 2016 09:29
[2016-10-31] MEDS: LACTOBACILLUS ACIDOPH & BULGAR 1 TABLET. PO SCH ×3 (09:38→17:03)
[2016-10-31] MEDS: ASPIRIN ENTERIC COATED 81 MG TABLET.DR. PO SCH (09:38)
[2016-10-31] MEDS: APIXABAN 5 MG TABLET. PO SCH ×2 (09:38→21:03)
[2016-10-31] MEDS: METOPROLOL TART IMMED RELEASE 25 MG TABLET PO SCH ×2 (09:39→21:04)
[2016-10-31 11:00] VITALS: BP 102/59
--- NOTE | 2016-10-31 11:12 | PDOC ---
Infectious Disease Note Subjective Subjective + loose stools and mild cramping Appetite good Denies leg pain Fever Tmax 100.2 ROS ROS GEN: Denies chills, sweats CV: Denies chest pain RESP: Denies shortness of air, cough GI: Denies n/v Vital Sign Vital Signs Vital Signs Date Time Temp Pulse Resp B/P Pulse Ox O2 Delivery O2 Flow Rate FiO2 10/31/16 09:39 85 135/52 10/31/16 08:02 96 Nasal Cannula 2.0 10/30/16 23:00 98.4 19 98.4 Physical Exam PHYSICAL EXAM GENERAL: Propped up in ed, NAD HEENT: OC/OP pink, NECK: Supple LUNGS: Clear HEART: S1S2, no gallop, no murmur ABD: Soft, NT EXT: No gross edema, no cyanosis. Left foot wound vac in place [employer]: Alert, oriented x 3, no focal neurologic deficit SKIN: No rash IV: ok Tunneled HDC. (10/30). clean Labs Lab Laboratory Tests Test 10/30/16 11:36 10/30/16 15:14 10/31/16 06:25 10/31/16 08:11 Glucose (Fingerstick) 136mg/dL (70-99) 148mg/dL (70-99) 178mg/dL (70-99) White Blood Count 8.0x10^3/uL (4.0-11.0) Red Blood Count 2.92x10^6/uL (4.30-5.70) Hemoglobin 8.3g/dL (13.0-17.5) Hematocrit 24.9% (39.0-53.0) Mean Corpuscular Volume 85fL (79-100) Mean Corpuscular Hemoglobin 29pg (25-35) Mean Corpuscular Hemoglobin Concent 33g/dL (31-37) Red Cell Distribution Width 14.6% (11.5-14.5) Platelet Count 149x10^3/uL (140-400) Neutrophils (%) (Auto) 80% (31-73) Lymphocytes (%) (Auto) 12% (24-48) Monocytes (%) (Auto) 6% (0-9) Eosinophils (%) (Auto) 1% (0-3) Basophils (%) (Auto) 1% (0-3) Neutrophils # (Auto) 6.4x10^3uL (1.8-7.7) Lymphocytes # (Auto) 0.9x10^3/uL (1.0-4.8) Monocytes # (Auto) 0.5x10^3/uL (0.0-1.1) Eosinophils # (Auto) 0.1x10^3/uL (0.0-0.7) Basophils # (Auto) 0.0x10^3/uL (0.0-0.2) Objective Assessment Group A strep bacteremia, 10/20 POA. repeat cults neg SOA - resolved CKD on HD Extensive left foot infection/osteo -s/p I and D necrotic tissue and bone, 10/[address] MSSA, Group A, Alcaligenes, Bacteroides (multiple nondominant GNR). Septic shock - resolved Lactic acidosis DM Loose stools, c. diff neg. 10/21 Plan Plan of Care Zosyn Local wound care Supportive care Attending Co-Sign The patient was seen and interviewed as well as examined at the bedside. The chart was reviewed. The case was discussed. Agree with the plan of care. FRANK BRIONES APRN Oct 31, 2016 11:12 JASVIR DE LEON MD Oct 31, 2016 14:31
--- NOTE | 2016-10-31 11:32 | PDOC ---
Renal-Progress Notes Subjective Notes Notes SITTING UP, NO COMPLAINTS History of Present Illness Hx of present illness IMPROVED Vitals Vitals Vital Signs Date Time Temp Pulse Resp B/P Pulse Ox O2 Delivery O2 Flow Rate FiO2 10/31/16 09:39 85 135/52 10/31/16 08:02 96 Nasal Cannula 2.0 10/30/16 23:00 98.4 19 98.4 Weight Weight [ ] I.O. Intake and Output Intake and Output 10/31/16 07:00 Intake Total 420 ml Output Total 375 ml Balance 45 ml Intake Oral 420 ml Output Urine Total 375 ml # Bowel Movements 6 Labs Labs Laboratory Tests Test 10/30/16 11:36 10/30/16 15:14 10/31/16 06:25 10/31/16 08:11 Glucose (Fingerstick) 136mg/dL (70-99) 148mg/dL (70-99) 178mg/dL (70-99) White Blood Count 8.0x10^3/uL (4.0-11.0) Red Blood Count 2.92x10^6/uL (4.30-5.70) Hemoglobin 8.3g/dL (13.0-17.5) Hematocrit 24.9% (39.0-53.0) Mean Corpuscular Volume 85fL (79-100) Mean Corpuscular Hemoglobin 29pg (25-35) Mean Corpuscular Hemoglobin Concent 33g/dL (31-37) Red Cell Distribution Width 14.6% (11.5-14.5) Platelet Count 149x10^3/uL (140-400) Neutrophils (%) (Auto) 80% (31-73) Lymphocytes (%) (Auto) 12% (24-48) Monocytes (%) (Auto) 6% (0-9) Eosinophils (%) (Auto) 1% (0-3) Basophils (%) (Auto) 1% (0-3) Neutrophils # (Auto) 6.4x10^3uL (1.8-7.7) Lymphocytes # (Auto) 0.9x10^3/uL (1.0-4.8) Monocytes # (Auto) 0.5x10^3/uL (0.0-1.1) Eosinophils # (Auto) 0.1x10^3/uL (0.0-0.7) Basophils # (Auto) 0.0x10^3/uL (0.0-0.2) Micro Micro Microbiology 10/25/16 Blood Culture - Final, Complete NO GROWTH AFTER 5 DAYS 10/21/16 Urine Culture - Final, Complete 10/21/16 Urine Culture Result 1 (HERBERT) - Final, Complete 10/22/16 Gram Stain - Final, Complete Physical Exam General Appearance: no apparent distress Skin: warm Respiratory: decreased breath sounds Heart: S1S2, RRR Abdomen: soft, bowel sounds present Genitourinary: bladder flat Extremities: pulses present Neurology: alert, oriented, follow commands Musculoskeletal: Osteoarthritis, Other (foot osteomyelitis) Assessment Assessment IMP CHF-COMPENSATED RHETT PERSISTS HYPOXIA-RESOLVED RESP FAILURE-BETTER S/P TUNNELED HD CATHETER PLAN CHANGE TO PO LASIX HD NEXT ON WEDNESDAY ENC PO D/C PENDING WILL FOLLOW BEVERLY EDWARD MD Oct 31, 2016 11:32
[2016-10-31 15:00] VITALS: BP 134/54
[2016-10-31] MEDS: DILTIAZEM HCL 180 MG CAP.ER.24H PO SCH (17:02)
[2016-10-31 19:00] VITALS: BP 128/51
[2016-10-31] MEDS: FAMOTIDINE 20 MG TABLET. PO SCH (21:03)
[2016-10-31] MEDS: ATORVASTATIN CALCIUM 20 MG TABLET PO SCH (21:03)
[2016-10-31 23:00] VITALS: BP 124/55
[2016-11-01 03:07] VITALS: BP 144/62
[2016-11-01 04:29] LABS: BASO # 0.1 x10^3/uL (0.0-0.2); BASO % 1 % (0-3); EOS % 2 % (0-3); HEMATOCRIT 24.8 % (39.0-53.0); HEMOGLOBIN 8.4 g/dL (13.0-17.5); LYMPH % 13 % (24-48); MEAN CORPUSCULAR HEMOGLOBIN 29 pg (25-35); MEAN CORPUSCULAR HGB CONC 34 g/dL (31-37); MEAN CORPUSCULAR VOLUME 84 fL (79-100); MONO % 7 % (0-9); NEUT % 78 % (31-73); PLATELET COUNT 156 x10^3/uL (140-400); RED BLOOD COUNT 2.94 x10^6/uL (4.30-5.70); RED CELL DISTRIBUTION WIDTH 14.8 % (11.5-14.5); WHITE BLOOD COUNT 8.1 x10^3/uL (4.0-11.0)
[2016-11-01] MEDS: PIPERACILLIN/TAZOBACTAM 2.25 GM in IV NORMAL SALINE 50ML 50 ML IV SCH ×4 (05:20→23:25)
[2016-11-01 07:00] VITALS: BP 146/62
[2016-11-01] MEDS: BUDESONIDE 0.5 MG/2 ML NEBU NEB SCH ×2 (07:45→20:06)
[2016-11-01] MEDS: IPRATRPIUM/ALBUTEROL 0.5/2.5MG 3 ML NEBU. NEB SCH ×4 (07:45→20:06)
--- NOTE | 2016-11-01 07:45 | PDOC ---
PROGRESS NOTES Chief Complaint Chief Complaint Hypoxic respiratory failure - CHF, diastolic - RHETT, improving - suspected underlying CKD - Hypokalemia: improved - L foot osteomyelitis; s/p I&D on 10/[address] Luis. wound vac in place. - DM2 - Afib - HTN, well controlled - COPD - acute diarrhea, resolved - metab acidosis, resolved - thrombocytopenia, chronic, stable; 80s-90s. suspect ITP - anemia, normocytic, normochromic Plan Zosyn Local wound care HD per nephrology SNU placement pending, SSI Labs reviewed. ID, Nephrology following. History of Present Illness History of Present Illness no fever doing better no acute events Vitals Vitals Vital Signs Date Time Temp Pulse Resp B/P Pulse Ox O2 Delivery O2 Flow Rate FiO2 11/01/16 03:07 96.8 79 20 144/62 93 Nasal Cannula 96.8 10/31/16 20:30 2.0 Physical Exam General: Alert, Oriented X3, Cooperative, No acute distress Heart: Other (IRR, no s3/s4) Lungs: Clear Abdomen: Normal bowel sounds, Soft Extremities: No cyanosis, Normal pulses Skin: No rashes, Other (left foot wound covered with wound vac. bilat distal foot amputations) Labs LABS Laboratory Tests Test 10/31/16 08:11 10/31/16 11:55 10/31/16 16:51 10/31/16 20:03 Glucose (Fingerstick) 178mg/dL (70-99) 271mg/dL (70-99) 254mg/dL (70-99) 145mg/dL (70-99) Test 11/01/16 04:10 White Blood Count 8.1x10^3/uL (4.0-11.0) Red Blood Count 2.94x10^6/uL (4.30-5.70) Hemoglobin 8.4g/dL (13.0-17.5) Hematocrit 24.8% (39.0-53.0) Mean Corpuscular Volume 84fL (79-100) Mean Corpuscular Hemoglobin 29pg (25-35) Mean Corpuscular Hemoglobin Concent 34g/dL (31-37) Red Cell Distribution Width 14.8% (11.5-14.5) Platelet Count 156x10^3/uL (140-400) Neutrophils (%) (Auto) 78% (31-73) Lymphocytes (%) (Auto) 13% (24-48) Monocytes (%) (Auto) 7% (0-9) Eosinophils (%) (Auto) 2% (0-3) Basophils (%) (Auto) 1% (0-3) Neutrophils # (Auto) 6.3x10^3uL (1.8-7.7) Lymphocytes # (Auto) 1.0x10^3/uL (1.0-4.8) Monocytes # (Auto) 0.6x10^3/uL (0.0-1.1) Eosinophils # (Auto) 0.1x10^3/uL (0.0-0.7) Basophils # (Auto) 0.1x10^3/uL (0.0-0.2) Assessment and Plan Assessmemt and Plan Problems Medical Problems: (1) Acute renal failure Status: Acute (2) Atrial fibrillation with RVR Status: Acute (3) Lactic acidosis Status: Acute (4) Severe sepsis Status: Acute (5) Uncontrolled diabetes mellitus Status: Acute Problems: Comment Review of Relevant I have reviewed the following items jovan (where applicable) has been applied. Labs Laboratory Tests Test 10/30/16 11:36 10/30/16 15:14 10/31/16 06:25 10/31/16 08:11 Glucose (Fingerstick) 136mg/dL (70-99) 148mg/dL (70-99) 178mg/dL (70-99) White Blood Count 8.0x10^3/uL (4.0-11.0) Red Blood Count 2.92x10^6/uL (4.30-5.70) Hemoglobin 8.3g/dL (13.0-17.5) Hematocrit 24.9% (39.0-53.0) Mean Corpuscular Volume 85fL (79-100) Mean Corpuscular Hemoglobin 29pg (25-35) Mean Corpuscular Hemoglobin Concent 33g/dL (31-37) Red Cell Distribution Width 14.6% (11.5-14.5) Platelet Count 149x10^3/uL (140-400) Neutrophils (%) (Auto) 80% (31-73) Lymphocytes (%) (Auto) 12% (24-48) Monocytes (%) (Auto) 6% (0-9) Eosinophils (%) (Auto) 1% (0-3) Basophils (%) (Auto) 1% (0-3) Neutrophils # (Auto) 6.4x10^3uL (1.8-7.7) Lymphocytes # (Auto) 0.9x10^3/uL (1.0-4.8) Monocytes # (Auto) 0.5x10^3/uL (0.0-1.1) Eosinophils # (Auto) 0.1x10^3/uL (0.0-0.7) Basophils # (Auto) 0.0x10^3/uL (0.0-0.2) Test 10/31/16 11:55 10/31/16 16:51 10/31/16 20:03 11/01/16 04:10 Glucose (Fingerstick) 271mg/dL (70-99) 254mg/dL (70-99) 145mg/dL (70-99) White Blood Count 8.1x10^3/uL (4.0-11.0) Red Blood Count 2.94x10^6/uL (4.30-5.70) Hemoglobin 8.4g/dL (13.0-17.5) Hematocrit 24.8% (39.0-53.0) Mean Corpuscular Volume 84fL (79-100) Mean Corpuscular Hemoglobin 29pg (25-35) Mean Corpuscular Hemoglobin Concent 34g/dL (31-37) Red Cell Distribution Width 14.8% (11.5-14.5) Platelet Count 156x10^3/uL (140-400) Neutrophils (%) (Auto) 78% (31-73) Lymphocytes (%) (Auto) 13% (24-48) Monocytes (%) (Auto) 7% (0-9) Eosinophils (%) (Auto) 2% (0-3) Basophils (%) (Auto) 1% (0-3) Neutrophils # (Auto) 6.3x10^3uL (1.8-7.7) Lymphocytes # (Auto) 1.0x10^3/uL (1.0-4.8) Monocytes # (Auto) 0.6x10^3/uL (0.0-1.1) Eosinophils # (Auto) 0.1x10^3/uL (0.0-0.7) Basophils # (Auto) 0.1x10^3/uL (0.0-0.2) Laboratory Tests Test 10/31/16 08:11 10/31/16 11:55 10/31/16 16:51 10/31/16 20:03 Glucose (Fingerstick) 178mg/dL (70-99) 271mg/dL (70-99) 254mg/dL (70-99) 145mg/dL (70-99) Test 11/01/16 04:10 White Blood Count 8.1x10^3/uL (4.0-11.0) Red Blood Count 2.94x10^6/uL (4.30-5.70) Hemoglobin 8.4g/dL (13.0-17.5) Hematocrit 24.8% (39.0-53.0) Mean Corpuscular Volume 84fL (79-100) Mean Corpuscular Hemoglobin 29pg (25-35) Mean Corpuscular Hemoglobin Concent 34g/dL (31-37) Red Cell Distribution Width 14.8% (11.5-14.5) Platelet Count 156x10^3/uL (140-400) Neutrophils (%) (Auto) 78% (31-73) Lymphocytes (%) (Auto) 13% (24-48) Monocytes (%) (Auto) 7% (0-9) Eosinophils (%) (Auto) 2% (0-3) Basophils (%) (Auto) 1% (0-3) Neutrophils # (Auto) 6.3x10^3uL (1.8-7.7) Lymphocytes # (Auto) 1.0x10^3/uL (1.0-4.8) Monocytes # (Auto) 0.6x10^3/uL (0.0-1.1) Eosinophils # (Auto) 0.1x10^3/uL (0.0-0.7) Basophils # (Auto) 0.1x10^3/uL (0.0-0.2) Microbiology 10/25/16 Blood Culture - Final, Complete NO GROWTH AFTER 5 DAYS 10/21/16 Urine Culture - Final, Complete 10/21/16 Urine Culture Result 1 (HERBERT) - Final, Complete 10/22/16 Gram Stain - Final, Complete Medications Current Medications Diltiazem HCl 20 mg 20 mg 1X ONCE IVP Last administered on 10/20/16 13:35; Start 10/20/16 at 13:30; Stop 10/20/16 at 13:31; Status DC Diltiazem HCl 125 mg/Dextrose 125 ml @ 10 mls/hr 1X ONCE IV Last administered on 10/20/16 13:49; Start 10/20/16 at 13:30; Stop 10/20/16 at 19:37; Status DC Sodium Chloride (Iv Sodium Chloride 0.9% 1000ml Bag) 1,000 ml @ 100 mls/hr Q10H IV Last administered on 10/20/16 13:45; Start 10/20/16 at 13:30; Stop at 23:29; Status DC Diltiazem HCl (Cardizem) 20 mg 1X ONCE IVP Last administered on 10/20/16 14:16 ; Start 10/20/16 at 14:00; Stop 10/20/16 at 14:01; Status DC Vancomycin HCl (Vanco Per Pharmacy) 1 each PRN DAILY PRN MC SEE COMMENTS Last administered on 10/20/16 16:49; Start 10/20/16 at 14:45; Stop 10/21/16 at 07:42; Status DC Piperacillin Sod/ Tazobactam Sod 1 each 1 each PRN DAILY PRN MC SEE COMMENTS; Start 10/20/16 at 14:45; Stop 10/21/16 at 07:49; Status DC Vancomycin HCl 2 gm/Sodium Chloride 500 ml @ 250 mls/hr 1X ONCE IV Last administered on 10/20/16 15:45; Start 10/20/16 at 15:00; Stop 10/20/16 at 16:59; Status DC Piperacillin Sod/ Tazobactam Sod/ Sodium Chloride (Zosyn/Iv Sodium Chloride 0.9 % 50ml) 50 ml @ 100 mls/hr 1X ONCE IV Last administered on 10/20/16 15:04; Start 10/20/16 at 15:00; Stop 10/20/16 at 15:29; Status DC Ondansetron HCl (Zofran) 4 mg PRN Q8HRS PRN IV NAUSEA/VOMITING; Start 10/20/16 at 15:00; Stop 10/20/16 at 15:16; Status DC Fentanyl Citrate 50 mcg 50 mcg PRN Q2HR PRN IV PAIN; Start 10/20/16 at 15:00; Stop 10/21/16 at 14:59; Status DC Sodium Chloride (Iv Sodium Chloride 0.9% 1000ml Bag) 1,000 ml @ 100 mls/hr Q10H IV Last administered on 10/21/16 11:30; Start 10/20/16 at 15:30; Stop at 15:29; Status DC Acetaminophen (Tylenol) 650 mg PRN Q4HRS PRN PO FEVER; Start 10/20/16 at 15:00; Stop 10/21/16 at 14:59; Status DC Ondansetron HCl (Zofran) 4 mg PRN Q6HRS PRN IV NAUSEA/VOMITING; Start 10/20/16 at 15:12 Insulin Aspart (Novolog) 0-9 UNITS TIDWMEALS SQ Last administered on 10/31/16 17:10; Start 10/20/16 at 17:00 Dextrose 12.5 gm PRN Q15MIN PRN IV SEE COMMENTS Last administered on 10/26/16 23:42; Start 10/20/16 at 15:15 Docusate Sodium (Colace) 100 mg BID PO Last administered on 10/26/16 21:17; Start 10/20/16 at 21:00 Glimepiride (Amaryl) 2 mg BID PO ; Start 10/20/16 at 21:00; Status UNV Acetaminophen/ Hydrocodone Bitart (Lortab 7.5/325) 1 tab PRN Q3HRS PRN PO PAIN Last administered on 10/26/16 15:27; Start 10/20/16 at 15:15 Glimepiride (Amaryl) 4 mg BIDWMEALS PO Last administered on 10/20/16 17:32; Start 10/20/16 at 17:00; Stop 10/21/16 at 14:52; Status DC Insulin Detemir (Levemir) 30 units QHS SQ Last administered on 10/20/16 21:03; Start 10/20/16 at 21:00; Stop 10/21/16 at 14:52; Status DC Ondansetron HCl 4 mg 4 mg Q8HRS PO Last administered on 10/21/16 06:17; Start 10/20/16 at 22:00; Stop 10/21/16 at 17:24; Status DC Sodium Chloride 500 ml @ 500 mls/hr 1X ONCE IV ; Start 10/20/16 at 15:30; Stop 10/20/16 at 16:29; Status DC Piperacillin Sod/ Tazobactam Sod 2.25 gm/Sodium Chloride 50 ml @ 100 mls/hr Q6HRS IV Last administered on 10/27/16 06:03; Start 10/21/16 at 00:00; Stop at 07:43; Status DC Vancomycin HCl/ Sodium Chloride (Iv Sodium Chloride 0.9% 250ml) 250 ml @ 167 mls/hr Q24H IV ; Start 10/21/16 at 16:00; Stop 10/21/16 at 16:00; Status DC Vancomycin HCl 1 each 1 each 1X ONCE MC ; Start 10/22/16 at 15:30; Stop 10/22/16 at 15:31; Status Cancel Dopamine HCl/ Dextrose 250 ml @ 13.183 mls/ hr CONT PRN IV SEE I/O RECORD Last administered on 10/20/16 20:38; Start 10/20/16 at 19:30; Stop 10/28/16 at 15 :26; Status DC Digoxin (Lanoxin) 250 mcg 1X ONCE IV Last administered on 10/20/16 21:02; Start 10/20/16 at 20:45; Stop 10/20/16 at 20:46; Status DC Digoxin (Lanoxin) 250 mcg 1X ONCE IV Last administered on 10/21/16 01:48; Start 10/21/16 at 02:00; Stop 10/21/16 at 02:01; Status DC Digoxin 250 mcg 250 mcg 1X ONCE IV Last administered on 10/21/16 04:12; Start 10/21/16 at 04:15; Stop 10/21/16 at 04:16; Status DC Diltiazem HCl 125 mg/Dextrose 125 ml @ 0 mls/hr CONT PRN IV SEE I/O RECORD Last administered on 10/21/16 23:03; Start 10/21/16 at 04:15; Stop 10/22/16 at 09: 44; Status DC Linezolid 300 ml @ 300 mls/hr Q12HR IV Last administered on 10/22/16 20:18; Start 10/21/16 at 09:00; Stop 10/23/16 at 07:26; Status DC Magnesium Sulfate/ Dextrose 50 ml @ 25 mls/hr PRN DAILY PRN IV for Mag < 1.7 on am labs Last administered on 10/22/16 15:15; Start 10/21/16 at 09:45 Albumin Human (Plasmanate) 500 ml @ 125 mls/hr 1X ONCE IV Last administered on 10/21/16 10:25; Start 10/21/16 at 09:45; Stop 10/21/16 at 13:44; Status DC Ondansetron HCl (Zofran) 4 mg PRN Q6HRS PRN IV Nausea; Start 10/21/16 at 10:00; Stop 10/22/16 at 09:59; Status DC Fentanyl Citrate (Fentanyl 2ml Vial) 25 mcg PRN Q5MIN PRN IV MILD PAIN; Start 10/21/16 at 10:00; Stop 10/22/16 at 09:59; Status DC Fentanyl Citrate (Fentanyl 2ml Vial) 50 mcg PRN Q5MIN PRN IV MODERATE PAIN; Start 10/21/16 at 10:00; Stop 10/22/16 at 09:59; Status DC Morphine Sulfate 1 mg 1 mg PRN Q10MIN PRN IV SEVERE PAIN; Start 10/21/16 at 10: 00; Stop 10/22/16 at 09:59; Status DC Lactated Ringer's (Iv Lactated Ringers) 1,000 ml @ 30 mls/hr Q24H IV ; Start at 09:50; Stop 10/21/16 at 21:49; Status DC Lidocaine HCl 2 ml 1X PRN PRN ID IV START; Start 10/21/16 at 10:00; Stop at 09:59; Status DC Hydromorphone HCl (Dilaudid) 0.5 mg PRN Q10MIN PRN IV SEV PAIN,Second choice; Start 10/21/16 at 10:00; Stop 10/22/16 at 09:59; Status DC Prochlorperazine Edisylate 5 mg 5 mg PACU PRN PRN IV NAUSEA; Start 10/21/16 at 10:00; Stop 10/22/16 at 09:59; Status DC Sodium Chloride (Iv Sodium Chloride 0.9% 500ml Bag) 500 ml @ 0 mls/hr PRN QID PRN IV UO< 30cc/hr over previous 6hrs; Start 10/21/16 at 10:15; Stop 10/21/16 at 17:27; Status DC Ondansetron HCl (Zofran) 4 mg PRN Q6HRS PRN IV Nausea; Start 10/21/16 at 11:30; Stop 10/22/16 at 11:29; Status DC Morphine Sulfate 1 mg 1 mg PRN Q10MIN PRN IV SEVERE PAIN; Start 10/21/16 at 11: 30; Stop 10/22/16 at 11:29; Status DC Lactated Ringer's (Iv Lactated Ringers) 1,000 ml @ 0 mls/hr Q0M IV ; Start 10/21 at 11:19; Stop 10/21/16 at 23:18; Status DC Lidocaine HCl 2 ml 1X PRN PRN ID IV START; Start 10/21/16 at 11:30; Stop at 11:29; Status DC Hydromorphone HCl (Dilaudid) 0.5 mg PRN Q10MIN PRN IV SEV PAIN,Second choice; Start 10/21/16 at 11:30; Stop 10/22/16 at 11:29; Status DC Prochlorperazine Edisylate (Compazine) 5 mg PACU PRN PRN IV NAUSEA; Start at 11:30; Stop 10/22/16 at 11:29; Status DC Atorvastatin Calcium (Lipitor) 20 mg QHS PO Last administered on 10/31/16 21: 03; Start 10/21/16 at 21:00 Aspirin (Ecotrin) 81 mg DAILYWBKFT PO Last administered on 10/31/16 09:38; Start 10/21/16 at 12:00 Ondansetron HCl (Zofran) 4 mg PRN Q6HRS PRN IV Nausea; Start 10/22/16 at 07:00; Stop 10/23/16 at 06:59; Status DC Morphine Sulfate 1 mg 1 mg PRN Q10MIN PRN IV SEVERE PAIN; Start 10/22/16 at 07: 00; Stop 10/23/16 at 06:59; Status DC Lactated Ringer's (Iv Lactated Ringers) 1,000 ml @ 30 mls/hr Q24H IV ; Start at 07:00; Stop 10/22/16 at 15:07; Status DC Lidocaine HCl 2 ml 1X PRN PRN ID IV START; Start 10/22/16 at 07:00; Stop at 06:59; Status DC Hydromorphone HCl (Dilaudid) 0.5 mg PRN Q10MIN PRN IV SEVERE PAIN, Second choice; Start 10/22/16 at 07:00; Stop 10/23/16 at 06:59; Status DC Prochlorperazine Edisylate (Compazine) 5 mg PACU PRN PRN IV NAUSEA; Start at 07:00; Stop 10/23/16 at 06:59; Status DC Aspirin (Ecotrin) 81 mg DAILYWBKFT PO ; Start 10/22/16 at 08:00; Status UNV Insulin Detemir (Levemir) 20 units QHS SQ ; Start 10/21/16 at 21:00; Stop at 08:29; Status DC Ondansetron HCl 4 mg 4 mg PRN Q8HRS PRN PO NAUSEA; Start 10/22/16 at 14:00 Sodium Chloride 1,000 ml @ 175 mls/hr Q5H43M IV Last administered on 05:30; Start 10/21/16 at 18:00; Stop 10/23/16 at 07:20; Status DC Dextrose 1,000 ml @ 75 mls/hr [id number] IV Last administered on 10/22/16 04:54; Start 10/22/16 at 04:45; Stop 10/22/16 at 15:05; Status DC Bupivacaine HCl (Sensorcaine Mpf 0.5%) 30 ml STK-MED ONCE .ROUTE ; Start at 06:45; Stop 10/22/16 at 06:46; Status DC Lidocaine HCl 20 ml 20 ml STK-MED ONCE .ROUTE ; Start 10/22/16 at 06:46; Stop 10/22/16 at 06:47; Status DC Propofol (Diprivan) 20 ml @ As Directed STK-MED ONCE IV ; Start 10/22/16 at 08:02 ; Stop 10/22/16 at 08:03; Status DC Lidocaine HCl 100 mg STK-MED ONCE .ROUTE ; Start 10/22/16 at 08:02; Stop 10/22/16 at 08:03; Status DC Ondansetron HCl (Zofran) 4 mg STK-MED ONCE .ROUTE ; Start 10/22/16 at 08:31; Stop 10/22/16 at 08:32; Status DC Phenylephrine HCl 1 mg STK-MED ONCE IV ; Start 10/22/16 at 08:31; Stop 10/22/16 at 08:32; Status DC Dexamethasone Sodium Phosphate (Decadron) 20 mg STK-MED ONCE .ROUTE ; Start 10/22 at 08:48; Stop 10/22/16 at 08:49; Status DC Sevoflurane (Ultane) 30 ml STK-MED ONCE IH ; Start 10/22/16 at 08:48; Stop at 08:49; Status DC Diltiazem HCl (Cardizem) 30 mg Q6HRS PO Last administered on 10/27/16 11:27; Start 10/22/16 at 10:00; Stop 10/27/16 at 12:31; Status DC Metoprolol Tartrate 5 mg 5 mg PRN Q6HRS PRN IVP ELEVATED BP, SEE COMMENTS; Start 10/22/16 at 09:45 Albumin Human (Plasmanate) 500 ml @ 125 mls/hr 1X ONCE IV Last administered on 10/22/16 11:20; Start 10/22/16 at 09:45; Stop 10/22/16 at 13:44; Status DC Info (Anti-Coagulation Monitoring By Pharmacy) 1 each PRN DAILY PRN MC SEE COMMENTS; Start 10/22/16 at 15:15; Status UNV Heparin Sodium (Porcine) 5,000 unit Q12HR SQ Last administered on 10/28/16 11: 08; Start 10/22/16 at 21:00; Stop 10/28/16 at 16:02; Status DC Loperamide HCl (Imodium) 2 mg PRN Q15MIN PRN PO DIARRHEA Last administered on 09:27; Start 10/22/16 at 20:00 Insulin Human Regular (Novolin R Vial) 10 unit 1X ONCE IV Last administered on 10/22/16 23:52; Start 10/22/16 at 01:00; Stop 10/22/16 at 23:46; Status DC Insulin Detemir (Levemir) 10 units 1X ONCE SQ Last administered on 10/22/16 23 :53; Start 10/22/16 at 23:45; Stop 10/22/16 at 23:46; Status DC Insulin Human Regular 10 unit 10 unit 1X ONCE IV Last administered on 00:09; Start 10/23/16 at 00:00; Stop 10/23/16 at 00:01; Status DC Sodium Chloride 38.75 meq/Sodium Bicarbonate 75 meq/Sterile Water 1,084.6875 ml @ 150 mls/hr CONT PRN IV SEE I/O RECORD Last administered on 10/24/16 07:12; Start 10/23/16 at 07:30 Albumin Human (Albuminar) 100 ml @ 100 mls/hr TID IV Last administered on 10/24 21:23; Start 10/23/16 at 09:00; Stop 10/24/16 at 21:59; Status DC Heparin Sodium (Porcine) 10,000 unit STK-MED ONCE .ROUTE ; Start 10/23/16 at 07: 55; Stop 10/23/16 at 07:56; Status DC Lidocaine/Sodium Bicarbonate 20 ml 20 ml STK-MED ONCE IJ ; Start 10/23/16 at 07: 55; Stop 10/23/16 at 07:56; Status DC Heparin Sodium/ Sodium Chloride 500 ml @ As Directed STK-MED ONCE .ROUTE ; Start 10/23/16 at 07:55; Stop 10/23/16 at 07:56; Status DC Insulin Detemir (Levemir) 20 units [id number] SQ ; Start 10/23/16 at 08:00; Stop at 08:01; Status DC Insulin Aspart (Novolog) 10 units TIDAC SQ Last administered on 10/23/16 17:46 ; Start 10/23/16 at 11:30; Stop 10/24/16 at 11:12; Status DC Insulin Detemir (Levemir) 30 units DAILY08 SQ Last administered on 10/23/16 09 :55; Start 10/23/16 at 08:30; Stop 10/24/16 at 11:12; Status DC Lidocaine/Sodium Bicarbonate (Buffered Lidocaine 1%) 3 ml 1X ONCE IJ Last administered on 10/23/16 08:48; Start 10/23/16 at 08:30; Stop 10/23/16 at 08:31 ; Status DC Heparin Sodium/ Sodium Chloride 60 unit 1X ONCE IV Last administered on 08:48; Start 10/23/16 at 08:30; Stop 10/23/16 at 08:31; Status DC Heparin Sodium (Porcine) 2,500 unit 1X ONCE INT CAT Last administered on 08:48; Start 10/23/16 at 08:30; Stop 10/23/16 at 08:31; Status DC Albuterol/ Ipratropium (Duoneb) 3 ml RTQID NEB Last administered on 10/31/16 20:27; Start 10/24/16 at 12:00 Albuterol/ Ipratropium (Duoneb) 3 ml 1X ONCE NEB Last administered on 09:11; Start 10/24/16 at 09:00; Stop 10/24/16 at 09:01; Status DC Budesonide (Pulmicort) 0.5 mg RTBID NEB Last administered on 10/31/16 20:27; Start 10/24/16 at 10:00 Insulin Aspart (Novolog) 7 units TIDAC SQ Last administered on 10/31/16 17:09 ; Start 10/24/16 at 11:30 Insulin Detemir (Levemir) 20 units DAILY08 SQ Last administered on 10/29/16 09 :26; Start 10/25/16 at 08:00 Potassium Chloride 20 meq 20 meq 1X ONCE PO Last administered on 10/24/16 18: 28; Start 10/24/16 at 12:00; Stop 10/24/16 at 12:01; Status DC Sodium Chloride 1,000 ml @ 1,000 mls/hr Q1H PRN IV hypotension; Start 10/24/16 at 13:00; Stop 10/24/16 at 18:59; Status DC Albumin Human (Albuminar) 200 ml @ 200 mls/hr 1X PRN PRN IV Hypotension; Start 10/24/16 at 14:00; Stop 10/24/16 at 19:59; Status DC Acetaminophen (Tylenol) 500 mg 1X PRN PRN PO MILD PAIN / TEMP; Start 10/24/16 at 14:00; Stop 10/25/16 at 13:59; Status DC Diphenhydramine HCl (Benadryl) 25 mg 1X PRN PRN IV ITCHING; Start 10/24/16 at 14:00; Stop 10/25/16 at 13:59; Status DC Diphenhydramine HCl (Benadryl) 25 mg 1X PRN PRN IV ITCHING; Start 10/24/16 at 14:00; Stop 10/25/16 at 13:59; Status DC Info (PHARMACY MONITORING -- do not chart) 1 each PRN DAILY PRN MC SEE COMMENTS ; Start 10/24/16 at 14:00; Stop 10/25/16 at 13:16; Status DC Potassium Chloride 20 meq 20 meq 1X ONCE PO ; Start 10/24/16 at 18:30; Stop 07/02 at 18:31; Status DC Amino Acids/ Electrolytes (Clinimix E 2.75%-5% Solution) 1,000 ml @ 55 mls/hr [id number] IV Last administered on 10/27/16 00:52; Start 10/25/16 at 12:00; Stop 10/27/16 at 14:10; Status DC Hydralazine HCl 10 mg 10 mg PRN Q4HRS PRN IVP ELEVATED BP, SEE COMMENTS Last administered on 10/27/16 06:05; Start 10/25/16 at 12:45 Sodium Chloride 1,000 ml @ 1,000 mls/hr Q1H PRN IV hypotension; Start 10/25/16 at 13:07; Stop 10/25/16 at 19:06; Status DC Albumin Human (Albuminar) 200 ml @ 200 mls/hr 1X PRN PRN IV Hypotension Last administered on 10/25/16 14:30; Start 10/25/16 at 13:15; Stop 10/25/16 at 19:14 ; Status DC Acetaminophen (Tylenol) 500 mg 1X PRN PRN PO MILD PAIN / TEMP; Start 10/25/16 at 13:15; Stop 10/26/16 at 13:14; Status DC Diphenhydramine HCl (Benadryl) 25 mg 1X PRN PRN IV ITCHING; Start 10/25/16 at 13:15; Stop 10/26/16 at 13:14; Status DC Diphenhydramine HCl (Benadryl) 25 mg 1X PRN PRN IV ITCHING; Start 10/25/16 at 13:15; Stop 10/26/16 at 13:14; Status DC Info (PHARMACY MONITORING -- do not chart) 1 each PRN DAILY PRN MC SEE COMMENTS ; Start 10/25/16 at 13:15 Famotidine (Pepcid) 20 mg QHS IVP Last administered on 10/26/16 21:17; Start 10/26/16 at 21:00; Stop 10/27/16 at 11:20; Status DC Furosemide 40 mg 40 mg [id number] IVP Last administered on 10/29/16 09:11; Start at 12:00 Sodium Chloride 1,000 ml @ 1,000 mls/hr Q1H PRN IV hypotension; Start 10/26/16 at 13:55; Stop 10/26/16 at 19:54; Status DC Sodium Chloride (Iv Sodium Chloride 0.9% 1000ml Bag) 1,000 ml @ 400 mls/hr Q2H30M PRN IV PATENCY; Start 10/26/16 at 13:55; Stop 10/27/16 at 01:54; Status DC Info 1 each 1 each PRN DAILY PRN MC SEE COMMENTS; Start 10/26/16 at 14:00; Status UNV Meropenem/Sodium Chloride (Merrem/Iv Sodium Chloride 0.9% 50ml) 50 ml @ 100 mls /hr Q6HRS IV Last administered on 10/28/16 06:00; Start 10/27/16 at 12:00; Stop 10/28/16 at 09:22; Status DC Metoprolol Tartrate (Lopressor) 25 mg BID PO Last administered on 10/31/16 21: 04; Start 10/27/16 at 12:00 Famotidine (Pepcid) 20 mg QHS PO Last administered on 10/31/16 21:03; Start at 21:00 Diltiazem HCl (Cardizem 24hr Cd) 180 mg [id number] PO Last administered on 17:02; Start 10/27/16 at 17:00 Regadenoson (Lexiscan) 0.4 mg 1X ONCE IV Last administered on 10/28/16 09:18 ; Start 10/28/16 at 07:45; Stop 10/28/16 at 07:46; Status DC Lactobacillus Acidophilus 1 tab 1 tab TIDWMEALS PO Last administered on 17:03; Start 10/28/16 at 12:00 Meropenem 500 mg/ Sodium Chloride 50 ml @ 100 mls/hr Q12HR IV Last administered on 10/29/16 21:36; Start 10/28/16 at 21:00; Stop 10/30/16 at 09:05 ; Status DC Sodium Chloride 1,000 ml @ 1,000 mls/hr Q1H PRN IV hypotension; Start 10/28/16 at 09:34; Stop 10/28/16 at 15:33; Status DC Albumin Human (Albuminar) 200 ml @ 200 mls/hr 1X PRN PRN IV Hypotension; Start 10/28/16 at 09:45; Stop 10/28/16 at 15:44; Status DC Acetaminophen (Tylenol) 500 mg 1X PRN PRN PO MILD PAIN / TEMP; Start 10/28/16 at 09:45; Stop 10/28/16 at 16:02; Status DC Diphenhydramine HCl (Benadryl) 25 mg 1X PRN PRN IV ITCHING; Start 10/28/16 at 09:45; Stop 10/28/16 at 16:02; Status DC Diphenhydramine HCl (Benadryl) 25 mg 1X PRN PRN IV ITCHING; Start 10/28/16 at 09:45; Stop 10/28/16 at 16:02; Status DC Sodium Chloride (Normal Saline Flush) 10 ml 1X PRN PRN IV AP catheter pack; Start 10/28/16 at 09:45; Stop 10/28/16 at 16:02; Status DC Sodium Chloride (Normal Saline Flush) 10 ml 1X PRN PRN IV PATIENT SERVICES COORDINATOR catheter pack; Start 10/28/16 at 09:45; Stop 10/28/16 at 16:02; Status DC Labetalol HCl 10 mg 10 mg PRN Q1HR PRN IVP SBP > 180; Start 10/28/16 at 09:45; Stop 10/28/16 at 16:02; Status DC Sodium Chloride (Iv Sodium Chloride 0.9% 1000ml Bag) 1,000 ml @ 400 mls/hr Q2H30M PRN IV PATENCY; Start 10/28/16 at 09:34; Stop 10/28/16 at 21:33; Status DC Info 1 each 1 each PRN DAILY PRN MC SEE COMMENTS; Start 10/28/16 at 09:45; Status UNV Sodium Chloride (Iv Sodium Chloride 0.9% 1000ml Bag) 1,000 ml @ 1,000 mls/hr Q1H PRN IV hypotension; Start 10/28/16 at 12:47; Stop 10/28/16 at 18:46; Status UNV Diphenhydramine HCl (Benadryl) 25 mg 1X PRN PRN IV ITCHING; Start 10/28/16 at 13:00; Stop 10/29/16 at 12:59; Status UNV Diphenhydramine HCl (Benadryl) 25 mg 1X PRN PRN IV ITCHING; Start 10/28/16 at 13:00; Stop 10/29/16 at 12:59; Status UNV Sodium Chloride (Normal Saline Flush) 10 ml 1X PRN PRN IV AP catheter pack; Start 10/28/16 at 13:00; Stop 10/29/16 at 12:59; Status UNV Sodium Chloride 10 ml 10 ml 1X PRN PRN IV PATIENT SERVICES COORDINATOR catheter pack; Start 10/28/16 at 13:00; Stop 10/29/16 at 12:59; Status UNV Sodium Chloride (Iv Sodium Chloride 0.9% 1000ml Bag) 1,000 ml @ 400 mls/hr Q2H30M PRN IV PATENCY; Start 10/28/16 at 12:47; Stop 10/29/16 at 00:46; Status UNV Info (PHARMACY MONITORING -- do not chart) 1 each PRN DAILY PRN MC SEE COMMENTS ; Start 10/28/16 at 13:00; Status UNV Apixaban 5 mg 5 mg BID PO Last administered on 10/31/16t 21:03; Start 10/28/16 at 21:00 Sodium Chloride 1,000 ml @ 1,000 mls/hr Q1H PRN IV hypotension; Start 10/30/16 at 08:30; Stop 10/30/16 at 15:00; Status DC Albumin Human 200 ml @ 200 mls/hr 1X PRN PRN IV Hypotension; Start 10/30/16 at 08:30; Stop 10/30/16 at 14:29; Status DC Sodium Chloride (Iv Sodium Chloride 0.9% 1000ml Bag) 1,000 ml @ 400 mls/hr Q2H30M PRN IV PATENCY; Start 10/30/16 at 08:21; Stop 10/30/16 at 16:00; Status DC Info 1 each 1 each PRN DAILY PRN MC SEE COMMENTS; Start 10/30/16 at 08:30; Status UNV Piperacillin Sod/ Tazobactam Sod/ Sodium Chloride (Zosyn/Iv Sodium Chloride 0.9 % 50ml) 50 ml @ 100 mls/hr Q6HRS IV Last administered on 11/01/16t 05:20; Start 10/30/16 at 12:00 Info (Anti-Coagulation Monitoring By Pharmacy) 1 each PRN DAILY PRN MC SEE COMMENTS Last administered on 10/30/16t 12:44; Start 10/30/16 at 12:45 Heparin Sodium (Porcine) 10,000 unit STK-MED ONCE .ROUTE ; Start 10/30/16 at 13: 21; Stop 10/30/16 at 13:22; Status DC Lidocaine/ Epinephrine 20 ml 20 ml STK-MED ONCE .ROUTE ; Start 10/30/16 at 13:21 ; Stop 10/30/16 at 13:22; Status DC Heparin Sodium/ Sodium Chloride 500 ml @ As Directed STK-MED ONCE .ROUTE ; Start 10/30/16 at 13:21; Stop 10/30/16 at 13:22; Status DC Midazolam HCl (Versed) 2 mg STK-MED ONCE .ROUTE ; Start 10/30/16 at 13:33; Stop 10/30/16 at 13:34; Status DC Fentanyl Citrate 100 mcg 100 mcg STK-MED ONCE .ROUTE ; Start 10/30/16 at 13:34; Stop 10/30/16 at 13:35; Status DC Cefazolin Sodium (Ancef 1gm Ivpb For Omni) 0 ml @ As Directed STK-MED ONCE IV ; Start 10/30/16 at 13:34; Stop 10/30/16 at 13:35; Status DC Heparin Sodium/ Sodium Chloride 1,000 unit 1X ONCE IART Last administered on 14:18; Start 10/30/16 at 14:00; Stop 10/30/16 at 14:12; Status DC Midazolam HCl (Versed) 2 mg 1X ONCE IV Last administered on 10/30/16 14:18; Start 10/30/16 at 14:00; Stop 10/30/16 at 14:12; Status DC Fentanyl Citrate (Fentanyl 2ml Vial) 100 mcg 1X ONCE IV Last administered on 14:19; Start 10/30/16 at 14:00; Stop 10/30/16 at 14:12; Status DC Lidocaine/ Epinephrine (Xylocaine 1%-Epi 1:100,000) 9 ml 1X ONCE IJ Last administered on 10/30/16 14:18; Start 10/30/16 at 14:00; Stop 10/30/16 at 14:12 ; Status DC Heparin Sodium (Porcine) 4,300 unit 1X ONCE INT CAT Last administered on 14:18; Start 10/30/16 at 14:00; Stop 10/30/16 at 14:12; Status DC Active Scripts Active Reported Zofran Odt (Ondansetron) 8 Mg Tab.rapdis 1 Tab PO Q8HRS Colace (Docusate Sodium) 100 Mg Capsule 1 Cap PO BID Hydrocodone-Apap 7.5-325 (Hydrocodone Bit/Acetaminophen) 1 Each Tablet 1 Tab PO Q3HRS PRN Glimepiride 4 Mg Tablet 1 Tab PO BID Glimepiride 2 Mg Tablet 1 Tab PO BID Levemir (Insulin Detemir) 100 Unit/1 Ml Vial 30 Unit SQ HS Vitals/I & O Vital Sign - Last 24 Hours 10/31/16 10/31/16 10/31/16 10/31/16 08:02 09:39 11:00 12:05 Temp 98.0 98.0 Pulse 85 68 Resp 22 B/P 135/52 102/59 Pulse Ox 96 98 96 O2 Delivery Nasal Cannula Nasal Cannula Nasal Cannula O2 Flow Rate 2.0 2.0 2.0 10/31/16 10/31/16 10/31/16 10/31/16 15:00 15:42 17:02 19:00 Temp 98.1 97.7 98.1 97.7 Pulse 86 82 84 Resp 24 20 B/P 134/54 134/59 128/51 Pulse Ox 96 97 97 O2 Delivery Room Air Nasal Cannula Nasal Cannula O2 Flow Rate 2.0 2.0 10/31/16 10/31/16 10/31/16 10/31/16 20:13 20:29 20:30 21:04 Pulse 84 B/P 128/51 Pulse Ox 96 96 O2 Delivery Nasal Cannula Nasal Cannula Nasal Cannula O2 Flow Rate 2.0 2.0 2.0 10/31/16 11/01/16 23:00 03:07 Temp 95.7 96.8 95.7 96.8 Pulse 81 79 Resp 20 20 B/P 124/55 144/62 Pulse Ox 96 93 O2 Delivery Nasal Cannula Nasal Cannula Intake and Output 10/31/16 10/31/16 11/01/16 15:00 23:00 07:00 Intake Total 340 ml 460 ml 460 ml Output Total 300 ml 300 ml Balance 340 ml 160 ml 160 ml MICHELLE PATEL MD Nov 01, 2016 07:45
[2016-11-01] MEDS: DOCUSATE SODIUM 100 MG CAPSULE PO SCH ×2 (09:00→20:49)
[2016-11-01] MEDS: METOPROLOL TART IMMED RELEASE 25 MG TABLET PO SCH ×2 (09:00→20:49)
[2016-11-01] MEDS: FUROSEMIDE 40 MG/4 ML VIAL IVP SCH (09:26)
[2016-11-01] MEDS: LACTOBACILLUS ACIDOPH & BULGAR 1 TABLET. PO SCH ×3 (09:28→18:08)
[2016-11-01] MEDS: APIXABAN 5 MG TABLET. PO SCH ×2 (09:28→20:48)
[2016-11-01] MEDS: ASPIRIN ENTERIC COATED 81 MG TABLET.DR. PO SCH (09:29)
[2016-11-01] MEDS: INSULIN ASPART 300 UNITS/3 ML INSULN.PEN SQ SCH ×6 (09:36→18:16)
[2016-11-01] MEDS: INSULIN DETEMIR 300 UNITS/3 ML INSULN.PEN. SQ SCH (09:37)
[2016-11-01 11:00] VITALS: BP 131/75
--- NOTE | 2016-11-01 11:06 | PDOC ---
Renal-Progress Notes Subjective Notes Notes FEELING BETTER History of Present Illness Hx of present illness STABLE Vitals Vitals Vital Signs Date Time Temp Pulse Resp B/P Pulse Ox O2 Delivery O2 Flow Rate FiO2 11/01/16 09:00 88 146/62 11/01/16 08:00 Nasal Cannula 2.0 11/01/16 07:48 97 11/01/16 07:00 96.3 18 96.3 Weight Weight [ ] I.O. Intake and Output Intake and Output 11/01/16 07:00 Intake Total 1260 ml Output Total 600 ml Balance 660 ml Intake Oral 1160 ml IV Total 100 ml Output Urine Total 600 ml # Bowel Movements 3 Labs Labs Laboratory Tests Test 10/31/16 11:55 10/31/16 16:51 10/31/16 20:03 11/01/16 04:10 Glucose (Fingerstick) 271mg/dL (70-99) 254mg/dL (70-99) 145mg/dL (70-99) White Blood Count 8.1x10^3/uL (4.0-11.0) Red Blood Count 2.94x10^6/uL (4.30-5.70) Hemoglobin 8.4g/dL (13.0-17.5) Hematocrit 24.8% (39.0-53.0) Mean Corpuscular Volume 84fL (79-100) Mean Corpuscular Hemoglobin 29pg (25-35) Mean Corpuscular Hemoglobin Concent 34g/dL (31-37) Red Cell Distribution Width 14.8% (11.5-14.5) Platelet Count 156x10^3/uL (140-400) Neutrophils (%) (Auto) 78% (31-73) Lymphocytes (%) (Auto) 13% (24-48) Monocytes (%) (Auto) 7% (0-9) Eosinophils (%) (Auto) 2% (0-3) Basophils (%) (Auto) 1% (0-3) Neutrophils # (Auto) 6.3x10^3uL (1.8-7.7) Lymphocytes # (Auto) 1.0x10^3/uL (1.0-4.8) Monocytes # (Auto) 0.6x10^3/uL (0.0-1.1) Eosinophils # (Auto) 0.1x10^3/uL (0.0-0.7) Basophils # (Auto) 0.1x10^3/uL (0.0-0.2) Test 11/01/16 08:05 Glucose (Fingerstick) 154mg/dL (70-99) Micro Micro Microbiology 10/25/16 Blood Culture - Final, Complete NO GROWTH AFTER 5 DAYS 10/21/16 Urine Culture - Final, Complete 10/21/16 Urine Culture Result 1 (HERBERT) - Final, Complete 10/22/16 Gram Stain - Final, Complete Physical Exam General Appearance: no apparent distress Skin: warm Respiratory: decreased breath sounds Heart: S1S2, RRR Abdomen: soft, bowel sounds present Genitourinary: bladder flat Extremities: pulses present Neurology: alert, oriented, follow commands Musculoskeletal: Osteoarthritis, Other (foot osteomyelitis) Assessment Assessment IMP CHF-COMPENSATED RHETT PERSISTS/OLIGURIC HYPOXIA-RESOLVED RESP FAILURE-BETTER S/P TUNNELED HD CATHETER PLAN PO LASIX HD NEXT ON WEDNESDAY ENC PO D/C PENDING WILL FOLLOW BEVERLY EDWARD MD Nov 01, 2016 11:06
--- NOTE | 2016-11-01 11:15 | PDOC ---
Infectious Disease Note Subjective Subjective Stools better Appetite good Denies leg pain No fever last 24 hours ROS ROS GEN: Denies fevers, chills, sweats HEENT: Denies sore throat CV: Denies chest pain RESP: Denies shortness of air, cough GI: Denies n/v Vital Sign Vital Signs Vital Signs Date Time Temp Pulse Resp B/P Pulse Ox O2 Delivery O2 Flow Rate FiO2 11/01/16 09:00 88 146/62 11/01/16 08:00 Nasal Cannula 2.0 11/01/16 07:48 97 11/01/16 07:00 96.3 18 96.3 Physical Exam PHYSICAL EXAM GENERAL: Propped up in bed, NAD HEENT: OC/OP pink, NECK: Supple LUNGS: Clear HEART: S1S2, no gallop, no murmur ABD: Soft, NT EXT: No gross edema, no cyanosis. Left foot wound vac in place SERVICE DESK SPECIALIST: Alert, oriented x 3, no focal neurologic deficit SKIN: No rash Tunneled HDC. (10/30). clean Labs Lab Laboratory Tests Test 10/31/16 11:55 10/31/16 16:51 10/31/16 20:03 11/01/16 04:10 Glucose (Fingerstick) 271mg/dL (70-99) 254mg/dL (70-99) 145mg/dL (70-99) White Blood Count 8.1x10^3/uL (4.0-11.0) Red Blood Count 2.94x10^6/uL (4.30-5.70) Hemoglobin 8.4g/dL (13.0-17.5) Hematocrit 24.8% (39.0-53.0) Mean Corpuscular Volume 84fL (79-100) Mean Corpuscular Hemoglobin 29pg (25-35) Mean Corpuscular Hemoglobin Concent 34g/dL (31-37) Red Cell Distribution Width 14.8% (11.5-14.5) Platelet Count 156x10^3/uL (140-400) Neutrophils (%) (Auto) 78% (31-73) Lymphocytes (%) (Auto) 13% (24-48) Monocytes (%) (Auto) 7% (0-9) Eosinophils (%) (Auto) 2% (0-3) Basophils (%) (Auto) 1% (0-3) Neutrophils # (Auto) 6.3x10^3uL (1.8-7.7) Lymphocytes # (Auto) 1.0x10^3/uL (1.0-4.8) Monocytes # (Auto) 0.6x10^3/uL (0.0-1.1) Eosinophils # (Auto) 0.1x10^3/uL (0.0-0.7) Basophils # (Auto) 0.1x10^3/uL (0.0-0.2) Test 11/01/16 08:05 Glucose (Fingerstick) 154mg/dL (70-99) Objective Assessment Group A strep bacteremia, 10/20 POA. repeat cults neg SOA - resolved CKD on HD Extensive left foot infection/osteo -s/p I and D necrotic tissue and bone, 10/[address] MSSA, Group A, Alcaligenes, Bacteroides (multiple nondominant GNR). Septic shock - resolved Lactic acidosis DM Loose stools, c. diff neg. 10/21 Plan Plan of Care Zosyn Local wound care Probiotics Supportive care Attending Co-Sign The patient was seen and interviewed as well as examined at the bedside. The chart was reviewed. The case was discussed. Agree with the plan of care. FRANK BRIONES APRN Nov 01, 2016 11:15 JASVIR DE LEON MD Nov 01, 2016 12:11
[2016-11-01 15:00] VITALS: BP 121/55
[2016-11-01] MEDS: DILTIAZEM HCL 180 MG CAP.ER.24H PO SCH (18:08)
[2016-11-01 19:00] VITALS: BP 136/59
[2016-11-01] MEDS: FAMOTIDINE 20 MG TABLET. PO SCH (20:48)
[2016-11-01] MEDS: ATORVASTATIN CALCIUM 20 MG TABLET PO SCH (20:48)
[2016-11-01 23:00] VITALS: BP 114/45
[2016-11-02 03:17] VITALS: BP 126/53
[2016-11-02] MEDS: PIPERACILLIN/TAZOBACTAM 2.25 GM in IV NORMAL SALINE 50ML 50 ML IV SCH ×4 (05:03→23:56)
[2016-11-02 05:29] LABS: BASO # 0.1 x10^3/uL (0.0-0.2); BASO % 1 % (0-3); EOS % 2 % (0-3); HEMATOCRIT 25.2 % (39.0-53.0); HEMOGLOBIN 8.4 g/dL (13.0-17.5); LYMPH # 1.1 x10^3/uL (1.0-4.8); LYMPH % 13 % (24-48); MEAN CORPUSCULAR HEMOGLOBIN 28 pg (25-35); MEAN CORPUSCULAR HGB CONC 33 g/dL (31-37); MEAN CORPUSCULAR VOLUME 84 fL (79-100); MONO % 8 % (0-9); NEUT % 77 % (31-73); PLATELET COUNT 166 x10^3/uL (140-400); RED BLOOD COUNT 2.99 x10^6/uL (4.30-5.70); RED CELL DISTRIBUTION WIDTH 15.2 % (11.5-14.5)
[2016-11-02 05:53] LABS: CALCIUM 8.3 mg/dL (8.5-10.1); CREATININE 4.2 mg/dL (0.7-1.3); GFR 14.1
[2016-11-02 06:00] LABS: POTASSIUM 5.4 mmol/L (3.5-5.1)
[2016-11-02 07:00] VITALS: BP 136/92
[2016-11-02] MEDS: INSULIN ASPART 300 UNITS/3 ML INSULN.PEN SQ SCH ×6 (07:30→16:45)
[2016-11-02] MEDS: BUDESONIDE 0.5 MG/2 ML NEBU NEB SCH ×2 (07:44→20:30)
[2016-11-02] MEDS: IPRATRPIUM/ALBUTEROL 0.5/2.5MG 3 ML NEBU. NEB SCH ×4 (07:44→20:35)
[2016-11-02] MEDS: INSULIN DETEMIR 300 UNITS/3 ML INSULN.PEN. SQ SCH (08:00)
[2016-11-02] MEDS: LACTOBACILLUS ACIDOPH & BULGAR 1 TABLET. PO SCH ×3 (08:00→16:41)
[2016-11-02] MEDS: FUROSEMIDE 40 MG TABLET PO SCH (09:00)
[2016-11-02] MEDS: DOCUSATE SODIUM 100 MG CAPSULE PO SCH ×2 (09:00→21:00)
[2016-11-02] MEDS ORDERED: IV NORMAL SALINE 1000ML BAG 1,000 ML IV PRN (09:07)
[2016-11-02] MEDS ORDERED: DIALYSIS PATIENT. MC PRN (09:15)
[2016-11-02] MEDS ORDERED: 0.9 % SODIUM CHLORIDE 10 ML DISP.SYRIN. IV PRN ×2 (09:15)
--- NOTE | 2016-11-02 09:21 | PDOC ---
Dialysis Progress Note Dialysis Note Dialysis Note Seen on Hemodialysis, tolerating treatment Well Vitals on Hemodialysis: 140/70 88 afeb 98.7 General Appearance: Awake: Alert Oriented x 3 Neck: No JVD or JVP Chest: CTA [place] Heart: S1 S2 Abdomen - Soft NTND Extremities - No Edema ARF/ ATN + CKD III Dialysis as below F 180 NR 3.0 Hrs 2 K 2.5 Ca 140 Na 35 HC03 Qb 350 + Qd 500+ Heparin 0 Units Uf 2-3 Kgs or to dry weight as tolerated May give 25-50 gms of 25% Albumin if needed to maintain Hemodynamic stability Treatment plan reviewed and discussed with wood gouger Vitals Vital Signs Vital Signs Date Time Temp Pulse Resp B/P Pulse Ox O2 Delivery O2 Flow Rate FiO2 11/02/16 07:45 93 Nasal Cannula 2.0 11/02/16 07:00 98.5 80 18 136/92 98.5 Labs Last Labs Laboratory Tests Test 10/31/16 11:55 10/31/16 16:51 10/31/16 20:03 11/01/16 04:10 Glucose (Fingerstick) 271mg/dL (70-99) 254mg/dL (70-99) 145mg/dL (70-99) White Blood Count 8.1x10^3/uL (4.0-11.0) Red Blood Count 2.94x10^6/uL (4.30-5.70) Hemoglobin 8.4g/dL (13.0-17.5) Hematocrit 24.8% (39.0-53.0) Mean Corpuscular Volume 84fL (79-100) Mean Corpuscular Hemoglobin 29pg (25-35) Mean Corpuscular Hemoglobin Concent 34g/dL (31-37) Red Cell Distribution Width 14.8% (11.5-14.5) Platelet Count 156x10^3/uL (140-400) Neutrophils (%) (Auto) 78% (31-73) Lymphocytes (%) (Auto) 13% (24-48) Monocytes (%) (Auto) 7% (0-9) Eosinophils (%) (Auto) 2% (0-3) Basophils (%) (Auto) 1% (0-3) Neutrophils # (Auto) 6.3x10^3uL (1.8-7.7) Lymphocytes # (Auto) 1.0x10^3/uL (1.0-4.8) Monocytes # (Auto) 0.6x10^3/uL (0.0-1.1) Eosinophils # (Auto) 0.1x10^3/uL (0.0-0.7) Basophils # (Auto) 0.1x10^3/uL (0.0-0.2) Test 11/01/16 08:05 11/01/16 11:27 11/01/16 16:57 11/01/16 20:36 Glucose (Fingerstick) 154mg/dL (70-99) 163mg/dL (70-99) 141mg/dL (70-99) 111mg/dL (70-99) Test 11/02/16 04:50 11/02/16 07:41 White Blood Count 9.0x10^3/uL (4.0-11.0) Red Blood Count 2.99x10^6/uL (4.30-5.70) Hemoglobin 8.4g/dL (13.0-17.5) Hematocrit 25.2% (39.0-53.0) Mean Corpuscular Volume 84fL (79-100) Mean Corpuscular Hemoglobin 28pg (25-35) Mean Corpuscular Hemoglobin Concent 33g/dL (31-37) Red Cell Distribution Width 15.2% (11.5-14.5) Platelet Count 166x10^3/uL (140-400) Neutrophils (%) (Auto) 77% (31-73) Lymphocytes (%) (Auto) 13% (24-48) Monocytes (%) (Auto) 8% (0-9) Eosinophils (%) (Auto) 2% (0-3) Basophils (%) (Auto) 1% (0-3) Neutrophils # (Auto) 7.0x10^3uL (1.8-7.7) Lymphocytes # (Auto) 1.1x10^3/uL (1.0-4.8) Monocytes # (Auto) 0.7x10^3/uL (0.0-1.1) Eosinophils # (Auto) 0.1x10^3/uL (0.0-0.7) Basophils # (Auto) 0.1x10^3/uL (0.0-0.2) Sodium Level 144mmol/L (136-145) Potassium Level 5.4mmol/L (3.5-5.1) Chloride Level 107mmol/L (98-107) Carbon Dioxide Level 27mmol/L (21-32) Anion Gap 10 (6-14) Blood Urea Nitrogen 64mg/dL (8-26) Creatinine 4.2mg/dL (0.7-1.3) Estimated GFR (Cockcroft-Gault) 14.1 Glucose Level 91mg/dL (70-99) Calcium Level 8.3mg/dL (8.5-10.1) Glucose (Fingerstick) 87mg/dL (70-99) Laboratory Tests Test 11/01/16 11:27 11/01/16 16:57 11/01/16 20:36 11/02/16 04:50 Glucose (Fingerstick) 163mg/dL (70-99) 141mg/dL (70-99) 111mg/dL (70-99) White Blood Count 9.0x10^3/uL (4.0-11.0) Red Blood Count 2.99x10^6/uL (4.30-5.70) Hemoglobin 8.4g/dL (13.0-17.5) Hematocrit 25.2% (39.0-53.0) Mean Corpuscular Volume 84fL (79-100) Mean Corpuscular Hemoglobin 28pg (25-35) Mean Corpuscular Hemoglobin Concent 33g/dL (31-37) Red Cell Distribution Width 15.2% (11.5-14.5) Platelet Count 166x10^3/uL (140-400) Neutrophils (%) (Auto) 77% (31-73) Lymphocytes (%) (Auto) 13% (24-48) Monocytes (%) (Auto) 8% (0-9) Eosinophils (%) (Auto) 2% (0-3) Basophils (%) (Auto) 1% (0-3) Neutrophils # (Auto) 7.0x10^3uL (1.8-7.7) Lymphocytes # (Auto) 1.1x10^3/uL (1.0-4.8) Monocytes # (Auto) 0.7x10^3/uL (0.0-1.1) Eosinophils # (Auto) 0.1x10^3/uL (0.0-0.7) Basophils # (Auto) 0.1x10^3/uL (0.0-0.2) Sodium Level 144mmol/L (136-145) Potassium Level 5.4mmol/L (3.5-5.1) Chloride Level 107mmol/L (98-107) Carbon Dioxide Level 27mmol/L (21-32) Anion Gap 10 (6-14) Blood Urea Nitrogen 64mg/dL (8-26) Creatinine 4.2mg/dL (0.7-1.3) Estimated GFR (Cockcroft-Gault) 14.1 Glucose Level 91mg/dL (70-99) Calcium Level 8.3mg/dL (8.5-10.1) Test 11/02/16 07:41 Glucose (Fingerstick) 87mg/dL (70-99) Assessment Assessment Problems Medical Problems: (1) Acute renal failure Status: Acute (2) Atrial fibrillation with RVR Status: Acute (3) Lactic acidosis Status: Acute (4) Severe sepsis Status: Acute (5) Uncontrolled diabetes mellitus Status: Acute Problems: Plan Plan of Care Problems Medical Problems: (1) Acute renal failure Status: Acute (2) Atrial fibrillation with RVR Status: Acute (3) Lactic acidosis Status: Acute (4) Severe sepsis Status: Acute (5) Uncontrolled diabetes mellitus Status: Acute ANJELICA DE LEON MD Nov 02, 2016 09:21
--- NOTE | 2016-11-02 09:28 | PDOC ---
Infectious Disease Note Subjective Subjective pt feeling good ROS ROS GEN: Denies fevers, chills, sweats HEENT: Denies blurred vision, sore throat CV: Denies chest pain RESP: Denies shortness of air, cough GI: Denies n/v/d NEURO: Denies confusion, dizziness MSK: Denies weakness, joint pain/swelling Vital Sign Vital Signs Vital Signs Date Time Temp Pulse Resp B/P Pulse Ox O2 Delivery O2 Flow Rate FiO2 11/02/16 07:45 93 Nasal Cannula 2.0 11/02/16 07:00 98.5 80 18 136/92 98.5 Physical Exam PHYSICAL EXAM GENERAL: NAD, Alert HEENT: PERRL, OC/OP NECK: Supple, no JVD, no LN LUNGS: Clear HEART: S1S2, no gallop, no murmur ABD: Soft, NT, no organomegaly, no rebound EXT: No edema, no cyanosis,, foot wound does have bone palpable ENTRY LEVEL MARKETING ASSISTANT: Alert, oriented x 3, no focal neurologic deficit SKIN: No rash IV: ok Labs Lab Laboratory Tests Test 11/01/16 11:27 11/01/16 16:57 11/01/16 20:36 11/02/16 04:50 Glucose (Fingerstick) 163mg/dL (70-99) 141mg/dL (70-99) 111mg/dL (70-99) White Blood Count 9.0x10^3/uL (4.0-11.0) Red Blood Count 2.99x10^6/uL (4.30-5.70) Hemoglobin 8.4g/dL (13.0-17.5) Hematocrit 25.2% (39.0-53.0) Mean Corpuscular Volume 84fL (79-100) Mean Corpuscular Hemoglobin 28pg (25-35) Mean Corpuscular Hemoglobin Concent 33g/dL (31-37) Red Cell Distribution Width 15.2% (11.5-14.5) Platelet Count 166x10^3/uL (140-400) Neutrophils (%) (Auto) 77% (31-73) Lymphocytes (%) (Auto) 13% (24-48) Monocytes (%) (Auto) 8% (0-9) Eosinophils (%) (Auto) 2% (0-3) Basophils (%) (Auto) 1% (0-3) Neutrophils # (Auto) 7.0x10^3uL (1.8-7.7) Lymphocytes # (Auto) 1.1x10^3/uL (1.0-4.8) Monocytes # (Auto) 0.7x10^3/uL (0.0-1.1) Eosinophils # (Auto) 0.1x10^3/uL (0.0-0.7) Basophils # (Auto) 0.1x10^3/uL (0.0-0.2) Sodium Level 144mmol/L (136-145) Potassium Level 5.4mmol/L (3.5-5.1) Chloride Level 107mmol/L (98-107) Carbon Dioxide Level 27mmol/L (21-32) Anion Gap 10 (6-14) Blood Urea Nitrogen 64mg/dL (8-26) Creatinine 4.2mg/dL (0.7-1.3) Estimated GFR (Cockcroft-Gault) 14.1 Glucose Level 91mg/dL (70-99) Calcium Level 8.3mg/dL (8.5-10.1) Test 11/02/16 07:41 Glucose (Fingerstick) 87mg/dL (70-99) Micro BC + 4/4 G + cocci G A strep + Objective Assessment Group A strep bacteremia, 10/20 POA. repeat cults neg SOA - resolved CKD on HD Extensive left foot infection/osteo -s/p I and D necrotic tissue and bone, 10/[address] MSSA, Group A, Alcaligenes, Bacteroides (multiple nondominant GNR). Septic shock - resolved Lactic acidosis DM Loose stools, c. diff neg. 10/21 Plan Plan of Care Zosyn Local wound care Probiotics Supportive care d/c to SNF/select JASVIR DE LEON MD Nov 02, 2016 09:28
--- NOTE | 2016-11-02 12:00 | PDOC ---
Subjective: Subjective: Says 2-3 stools daily, soft but not watery or loose, w/o blood. No abd pain. No soiling although has had "some close calls." Again tells me how "half a bottle of Pepto usually does the trick." Objective: Objective: Per RN - stool is soft, not loose. Vital Signs: Vital Signs Date Time Temp Pulse Resp B/P Pulse Ox O2 Delivery O2 Flow Rate FiO2 11/02/16 08:00 Nasal Cannula 2.0 11/02/16 07:45 93 11/02/16 07:00 98.5 80 18 136/92 98.5 Labs: Laboratory Tests Test 11/01/16 16:57 11/01/16 20:36 11/02/16 07:41 Glucose (Fingerstick) 141mg/dL (70-99) 111mg/dL (70-99) 87mg/dL (70-99) PE: GEN: NAD, dialyzing LUNGS: clear anteriorly w/ nasal cannula HEART: S1S2 ABD: NABS, S/ND/NT NEURO/PSYCH: A & O 3 A/P: Diarrhea - improved -on probiotics, Imodium PRN -no previous colonoscopy CKD on HD Left foot infection -- Stable GI-sellers. DOROTHY SHANNON Nov 02, 2016 12:00
--- NOTE | 2016-11-02 12:15 | PDOC ---
PULMONARY PROGRESS NOTES Subjective PT FEELS BETTER LESS SOA Comments Vitals Vital Signs Date Time Temp Pulse Resp B/P Pulse Ox O2 Delivery O2 Flow Rate FiO2 11/02/16 11:58 Nasal Cannula 2.0 11/02/16 07:45 93 11/02/16 07:00 98.5 80 18 136/92 98.5 General: Alert Lungs: Clear Cardiovascular: S1, S2 Abdomen: Soft, Non-tender Neuro Exam: Alert, Oriented Extremities: Other (1+edema) Skin: Warm Labs Laboratory Tests Test 10/31/16 16:51 10/31/16 20:03 11/01/16 04:10 11/01/16 08:05 Glucose (Fingerstick) 254mg/dL (70-99) 145mg/dL (70-99) 154mg/dL (70-99) White Blood Count 8.1x10^3/uL (4.0-11.0) Red Blood Count 2.94x10^6/uL (4.30-5.70) Hemoglobin 8.4g/dL (13.0-17.5) Hematocrit 24.8% (39.0-53.0) Mean Corpuscular Volume 84fL (79-100) Mean Corpuscular Hemoglobin 29pg (25-35) Mean Corpuscular Hemoglobin Concent 34g/dL (31-37) Red Cell Distribution Width 14.8% (11.5-14.5) Platelet Count 156x10^3/uL (140-400) Neutrophils (%) (Auto) 78% (31-73) Lymphocytes (%) (Auto) 13% (24-48) Monocytes (%) (Auto) 7% (0-9) Eosinophils (%) (Auto) 2% (0-3) Basophils (%) (Auto) 1% (0-3) Neutrophils # (Auto) 6.3x10^3uL (1.8-7.7) Lymphocytes # (Auto) 1.0x10^3/uL (1.0-4.8) Monocytes # (Auto) 0.6x10^3/uL (0.0-1.1) Eosinophils # (Auto) 0.1x10^3/uL (0.0-0.7) Basophils # (Auto) 0.1x10^3/uL (0.0-0.2) Test 11/01/16 11:27 11/01/16 16:57 11/01/16 20:36 11/02/16 04:50 Glucose (Fingerstick) 163mg/dL (70-99) 141mg/dL (70-99) 111mg/dL (70-99) White Blood Count 9.0x10^3/uL (4.0-11.0) Red Blood Count 2.99x10^6/uL (4.30-5.70) Hemoglobin 8.4g/dL (13.0-17.5) Hematocrit 25.2% (39.0-53.0) Mean Corpuscular Volume 84fL (79-100) Mean Corpuscular Hemoglobin 28pg (25-35) Mean Corpuscular Hemoglobin Concent 33g/dL (31-37) Red Cell Distribution Width 15.2% (11.5-14.5) Platelet Count 166x10^3/uL (140-400) Neutrophils (%) (Auto) 77% (31-73) Lymphocytes (%) (Auto) 13% (24-48) Monocytes (%) (Auto) 8% (0-9) Eosinophils (%) (Auto) 2% (0-3) Basophils (%) (Auto) 1% (0-3) Neutrophils # (Auto) 7.0x10^3uL (1.8-7.7) Lymphocytes # (Auto) 1.1x10^3/uL (1.0-4.8) Monocytes # (Auto) 0.7x10^3/uL (0.0-1.1) Eosinophils # (Auto) 0.1x10^3/uL (0.0-0.7) Basophils # (Auto) 0.1x10^3/uL (0.0-0.2) Sodium Level 144mmol/L (136-145) Potassium Level 5.4mmol/L (3.5-5.1) Chloride Level 107mmol/L (98-107) Carbon Dioxide Level 27mmol/L (21-32) Anion Gap 10 (6-14) Blood Urea Nitrogen 64mg/dL (8-26) Creatinine 4.2mg/dL (0.7-1.3) Estimated GFR (Cockcroft-Gault) 14.1 Glucose Level 91mg/dL (70-99) Calcium Level 8.3mg/dL (8.5-10.1) Test 11/02/16 07:41 Glucose (Fingerstick) 87mg/dL (70-99) Laboratory Tests Test 11/01/16 16:57 11/01/16 20:36 11/02/16 04:50 11/02/16 07:41 Glucose (Fingerstick) 141mg/dL (70-99) 111mg/dL (70-99) 87mg/dL (70-99) White Blood Count 9.0x10^3/uL (4.0-11.0) Red Blood Count 2.99x10^6/uL (4.30-5.70) Hemoglobin 8.4g/dL (13.0-17.5) Hematocrit 25.2% (39.0-53.0) Mean Corpuscular Volume 84fL (79-100) Mean Corpuscular Hemoglobin 28pg (25-35) Mean Corpuscular Hemoglobin Concent 33g/dL (31-37) Red Cell Distribution Width 15.2% (11.5-14.5) Platelet Count 166x10^3/uL (140-400) Neutrophils (%) (Auto) 77% (31-73) Lymphocytes (%) (Auto) 13% (24-48) Monocytes (%) (Auto) 8% (0-9) Eosinophils (%) (Auto) 2% (0-3) Basophils (%) (Auto) 1% (0-3) Neutrophils # (Auto) 7.0x10^3uL (1.8-7.7) Lymphocytes # (Auto) 1.1x10^3/uL (1.0-4.8) Monocytes # (Auto) 0.7x10^3/uL (0.0-1.1) Eosinophils # (Auto) 0.1x10^3/uL (0.0-0.7) Basophils # (Auto) 0.1x10^3/uL (0.0-0.2) Sodium Level 144mmol/L (136-145) Potassium Level 5.4mmol/L (3.5-5.1) Chloride Level 107mmol/L (98-107) Carbon Dioxide Level 27mmol/L (21-32) Anion Gap 10 (6-14) Blood Urea Nitrogen 64mg/dL (8-26) Creatinine 4.2mg/dL (0.7-1.3) Estimated GFR (Cockcroft-Gault) 14.1 Glucose Level 91mg/dL (70-99) Calcium Level 8.3mg/dL (8.5-10.1) Medications Active Scripts Medications Dose Route/Sig Days Date Category Zofran Odt (Ondansetron) 8 Mg Tab.rapdis 1 Tab PO Q8HRS 09/30/16 Reported Colace (Docusate Sodium) 100 Mg Capsule 1 Cap PO BID 09/30/16 Reported Hydrocodone-Apap 7.5-325 (Hydrocodone Bit/Acetaminophen) 1 Each Tablet 1 Tab PO Q3HRS PRN 09/30/16 Reported Glimepiride 4 Mg Tablet 1 Tab PO BID 09/29/16 Reported Glimepiride 2 Mg Tablet 1 Tab PO BID 09/29/16 Reported Levemir (Insulin Detemir) 100 Unit/1 Ml Vial 30 Unit SQ HS 06/29/14 Reported Comments cxr reviewed improved Impression . 1. Acute hypoxic respiratory failure sec to heart failure, 2. Clinically, less likely pneumonia, possible lung injury 3. Underlying chronic obstructive pulmonary disease. 4. Abnormal chest x-ray with diffuse interstitial infiltrates, more compatible with pulmonary edema 5. Acute kidney injury on chronic kidney disease. s/p emergent dialysis. 6. Hypoglycemia, now being corrected. 7. Normal ejection fraction on recent echo. Plan . resp status is STATUS PT FEELS BETTER HD 02 MANUELITO MUÑOZ MD Nov 02, 2016 12:15
[2016-11-02] MEDS: APIXABAN 5 MG TABLET. PO SCH ×2 (12:28→21:48)
[2016-11-02] MEDS: ASPIRIN ENTERIC COATED 81 MG TABLET.DR. PO SCH (12:28)
[2016-11-02] MEDS: METOPROLOL TART IMMED RELEASE 25 MG TABLET PO SCH ×2 (12:29→21:49)
[2016-11-02] MEDS: ANTI-COAG MONITOR BY PHARMACY. MC PRN (13:20)
[2016-11-02 15:00] VITALS: BP 106/55
--- NOTE | 2016-11-02 16:14 | PDOC ---
PROGRESS NOTES Chief Complaint Chief Complaint Hypoxic respiratory failure - CHF, diastolic - RHETT, improving - suspected underlying CKD - Hypokalemia: improved - L foot osteomyelitis; s/p I&D on 10/[address] Luis. - DM2 - Afib - HTN, well controlled - COPD - acute diarrhea, resolved - metab acidosis, resolved - thrombocytopenia, chronic, stable; 80s-90s. suspect ITP - anemia, normocytic, normochromic History of Present Illness History of Present Illness no fever no acute events cont. current placement pending, needing PT and OT and wound Vitals Vitals Vital Signs Date Time Temp Pulse Resp B/P Pulse Ox O2 Delivery O2 Flow Rate FiO2 11/02/16 15:22 Nasal Cannula 2.0 11/02/16 15:00 98.9 98 18 106/55 97 98.9 Physical Exam General: Alert, Oriented X3, Cooperative, No acute distress Heart: Other (IRR, no s3/s4) Lungs: Clear Abdomen: Normal bowel sounds, Soft Extremities: No cyanosis, Normal pulses Skin: No rashes, Other (left foot wound covered with wound vac. bilat distal foot amputations) Labs LABS Laboratory Tests Test 11/01/16 16:57 11/01/16 20:36 11/02/16 04:50 11/02/16 07:41 Glucose (Fingerstick) 141mg/dL (70-99) 111mg/dL (70-99) 87mg/dL (70-99) White Blood Count 9.0x10^3/uL (4.0-11.0) Red Blood Count 2.99x10^6/uL (4.30-5.70) Hemoglobin 8.4g/dL (13.0-17.5) Hematocrit 25.2% (39.0-53.0) Mean Corpuscular Volume 84fL (79-100) Mean Corpuscular Hemoglobin 28pg (25-35) Mean Corpuscular Hemoglobin Concent 33g/dL (31-37) Red Cell Distribution Width 15.2% (11.5-14.5) Platelet Count 166x10^3/uL (140-400) Neutrophils (%) (Auto) 77% (31-73) Lymphocytes (%) (Auto) 13% (24-48) Monocytes (%) (Auto) 8% (0-9) Eosinophils (%) (Auto) 2% (0-3) Basophils (%) (Auto) 1% (0-3) Neutrophils # (Auto) 7.0x10^3uL (1.8-7.7) Lymphocytes # (Auto) 1.1x10^3/uL (1.0-4.8) Monocytes # (Auto) 0.7x10^3/uL (0.0-1.1) Eosinophils # (Auto) 0.1x10^3/uL (0.0-0.7) Basophils # (Auto) 0.1x10^3/uL (0.0-0.2) Sodium Level 144mmol/L (136-145) Potassium Level 5.4mmol/L (3.5-5.1) Chloride Level 107mmol/L (98-107) Carbon Dioxide Level 27mmol/L (21-32) Anion Gap 10 (6-14) Blood Urea Nitrogen 64mg/dL (8-26) Creatinine 4.2mg/dL (0.7-1.3) Estimated GFR (Cockcroft-Gault) 14.1 Glucose Level 91mg/dL (70-99) Calcium Level 8.3mg/dL (8.5-10.1) Review of Systems Review of Systems no n.v.d Assessment and Plan Assessmemt and Plan Problems Medical Problems: (1) Acute renal failure Status: Acute (2) Atrial fibrillation with RVR Status: Acute (3) Lactic acidosis Status: Acute (4) Severe sepsis Status: Acute (5) Uncontrolled diabetes mellitus Status: Acute Problems: Comment Review of Relevant I have reviewed the following items jovan (where applicable) has been applied. Labs Laboratory Tests Test 10/31/16 16:51 10/31/16 20:03 11/01/16 04:10 11/01/16 08:05 Glucose (Fingerstick) 254mg/dL (70-99) 145mg/dL (70-99) 154mg/dL (70-99) White Blood Count 8.1x10^3/uL (4.0-11.0) Red Blood Count 2.94x10^6/uL (4.30-5.70) Hemoglobin 8.4g/dL (13.0-17.5) Hematocrit 24.8% (39.0-53.0) Mean Corpuscular Volume 84fL (79-100) Mean Corpuscular Hemoglobin 29pg (25-35) Mean Corpuscular Hemoglobin Concent 34g/dL (31-37) Red Cell Distribution Width 14.8% (11.5-14.5) Platelet Count 156x10^3/uL (140-400) Neutrophils (%) (Auto) 78% (31-73) Lymphocytes (%) (Auto) 13% (24-48) Monocytes (%) (Auto) 7% (0-9) Eosinophils (%) (Auto) 2% (0-3) Basophils (%) (Auto) 1% (0-3) Neutrophils # (Auto) 6.3x10^3uL (1.8-7.7) Lymphocytes # (Auto) 1.0x10^3/uL (1.0-4.8) Monocytes # (Auto) 0.6x10^3/uL (0.0-1.1) Eosinophils # (Auto) 0.1x10^3/uL (0.0-0.7) Basophils # (Auto) 0.1x10^3/uL (0.0-0.2) Test 11/01/16 11:27 11/01/16 16:57 11/01/16 20:36 11/02/16 04:50 Glucose (Fingerstick) 163mg/dL (70-99) 141mg/dL (70-99) 111mg/dL (70-99) White Blood Count 9.0x10^3/uL (4.0-11.0) Red Blood Count 2.99x10^6/uL (4.30-5.70) Hemoglobin 8.4g/dL (13.0-17.5) Hematocrit 25.2% (39.0-53.0) Mean Corpuscular Volume 84fL (79-100) Mean Corpuscular Hemoglobin 28pg (25-35) Mean Corpuscular Hemoglobin Concent 33g/dL (31-37) Red Cell Distribution Width 15.2% (11.5-14.5) Platelet Count 166x10^3/uL (140-400) Neutrophils (%) (Auto) 77% (31-73) Lymphocytes (%) (Auto) 13% (24-48) Monocytes (%) (Auto) 8% (0-9) Eosinophils (%) (Auto) 2% (0-3) Basophils (%) (Auto) 1% (0-3) Neutrophils # (Auto) 7.0x10^3uL (1.8-7.7) Lymphocytes # (Auto) 1.1x10^3/uL (1.0-4.8) Monocytes # (Auto) 0.7x10^3/uL (0.0-1.1) Eosinophils # (Auto) 0.1x10^3/uL (0.0-0.7) Basophils # (Auto) 0.1x10^3/uL (0.0-0.2) Sodium Level 144mmol/L (136-145) Potassium Level 5.4mmol/L (3.5-5.1) Chloride Level 107mmol/L (98-107) Carbon Dioxide Level 27mmol/L (21-32) Anion Gap 10 (6-14) Blood Urea Nitrogen 64mg/dL (8-26) Creatinine 4.2mg/dL (0.7-1.3) Estimated GFR (Cockcroft-Gault) 14.1 Glucose Level 91mg/dL (70-99) Calcium Level 8.3mg/dL (8.5-10.1) Test 11/02/16 07:41 Glucose (Fingerstick) 87mg/dL (70-99) Laboratory Tests Test 11/01/16 16:57 11/01/16 20:36 11/02/16 04:50 11/02/16 07:41 Glucose (Fingerstick) 141mg/dL (70-99) 111mg/dL (70-99) 87mg/dL (70-99) White Blood Count 9.0x10^3/uL (4.0-11.0) Red Blood Count 2.99x10^6/uL (4.30-5.70) Hemoglobin 8.4g/dL (13.0-17.5) Hematocrit 25.2% (39.0-53.0) Mean Corpuscular Volume 84fL (79-100) Mean Corpuscular Hemoglobin 28pg (25-35) Mean Corpuscular Hemoglobin Concent 33g/dL (31-37) Red Cell Distribution Width 15.2% (11.5-14.5) Platelet Count 166x10^3/uL (140-400) Neutrophils (%) (Auto) 77% (31-73) Lymphocytes (%) (Auto) 13% (24-48) Monocytes (%) (Auto) 8% (0-9) Eosinophils (%) (Auto) 2% (0-3) Basophils (%) (Auto) 1% (0-3) Neutrophils # (Auto) 7.0x10^3uL (1.8-7.7) Lymphocytes # (Auto) 1.1x10^3/uL (1.0-4.8) Monocytes # (Auto) 0.7x10^3/uL (0.0-1.1) Eosinophils # (Auto) 0.1x10^3/uL (0.0-0.7) Basophils # (Auto) 0.1x10^3/uL (0.0-0.2) Sodium Level 144mmol/L (136-145) Potassium Level 5.4mmol/L (3.5-5.1) Chloride Level 107mmol/L (98-107) Carbon Dioxide Level 27mmol/L (21-32) Anion Gap 10 (6-14) Blood Urea Nitrogen 64mg/dL (8-26) Creatinine 4.2mg/dL (0.7-1.3) Estimated GFR (Cockcroft-Gault) 14.1 Glucose Level 91mg/dL (70-99) Calcium Level 8.3mg/dL (8.5-10.1) Microbiology 10/25/16 Blood Culture - Final, Complete NO GROWTH AFTER 5 DAYS 10/21/16 Urine Culture - Final, Complete 10/21/16 Urine Culture Result 1 (HERBERT) - Final, Complete 10/22/16 Gram Stain - Final, Complete Medications Current Medications Diltiazem HCl 20 mg 20 mg 1X ONCE IVP Last administered on 10/20/16 13:35; Start 10/20/16 at 13:30; Stop 10/20/16 at 13:31; Status DC Diltiazem HCl 125 mg/Dextrose 125 ml @ 10 mls/hr 1X ONCE IV Last administered on 10/20/16 13:49; Start 10/20/16 at 13:30; Stop 10/20/16 at 19:37; Status DC Sodium Chloride (Iv Sodium Chloride 0.9% 1000ml Bag) 1,000 ml @ 100 mls/hr Q10H IV Last administered on 10/20/16 13:45; Start 10/20/16 at 13:30; Stop at 23:29; Status DC Diltiazem HCl (Cardizem) 20 mg 1X ONCE IVP Last administered on 10/20/16 14:16 ; Start 10/20/16 at 14:00; Stop 10/20/16 at 14:01; Status DC Vancomycin HCl (Vanco Per Pharmacy) 1 each PRN DAILY PRN MC SEE COMMENTS Last administered on 10/20/16 16:49; Start 10/20/16 at 14:45; Stop 10/21/16 at 07:42; Status DC Piperacillin Sod/ Tazobactam Sod 1 each 1 each PRN DAILY PRN MC SEE COMMENTS; Start 10/20/16 at 14:45; Stop 10/21/16 at 07:49; Status DC Vancomycin HCl 2 gm/Sodium Chloride 500 ml @ 250 mls/hr 1X ONCE IV Last administered on 10/20/16 15:45; Start 10/20/16 at 15:00; Stop 10/20/16 at 16:59; Status DC Piperacillin Sod/ Tazobactam Sod/ Sodium Chloride (Zosyn/Iv Sodium Chloride 0.9 % 50ml) 50 ml @ 100 mls/hr 1X ONCE IV Last administered on 10/20/16 15:04; Start 10/20/16 at 15:00; Stop 10/20/16 at 15:29; Status DC Ondansetron HCl (Zofran) 4 mg PRN Q8HRS PRN IV NAUSEA/VOMITING; Start 10/20/16 at 15:00; Stop 10/20/16 at 15:16; Status DC Fentanyl Citrate 50 mcg 50 mcg PRN Q2HR PRN IV PAIN; Start 10/20/16 at 15:00; Stop 10/21/16 at 14:59; Status DC Sodium Chloride (Iv Sodium Chloride 0.9% 1000ml Bag) 1,000 ml @ 100 mls/hr Q10H IV Last administered on 10/21/16 11:30; Start 10/20/16 at 15:30; Stop at 15:29; Status DC Acetaminophen (Tylenol) 650 mg PRN Q4HRS PRN PO FEVER; Start 10/20/16 at 15:00; Stop 10/21/16 at 14:59; Status DC Ondansetron HCl (Zofran) 4 mg PRN Q6HRS PRN IV NAUSEA/VOMITING; Start 10/20/16 at 15:12 Insulin Aspart (Novolog) 0-9 UNITS TIDWMEALS SQ Last administered on 11/01/16 12:22; Start 10/20/16 at 17:00 Dextrose 12.5 gm PRN Q15MIN PRN IV SEE COMMENTS Last administered on 10/26/16 23:42; Start 10/20/16 at 15:15 Docusate Sodium (Colace) 100 mg BID PO Last administered on 10/26/16 21:17; Start 10/20/16 at 21:00 Glimepiride (Amaryl) 2 mg BID PO ; Start 10/20/16 at 21:00; Status UNV Acetaminophen/ Hydrocodone Bitart (Lortab 7.5/325) 1 tab PRN Q3HRS PRN PO PAIN Last administered on 10/26/16 15:27; Start 10/20/16 at 15:15 Glimepiride (Amaryl) 4 mg BIDWMEALS PO Last administered on 10/20/16 17:32; Start 10/20/16 at 17:00; Stop 10/21/16 at 14:52; Status DC Insulin Detemir (Levemir) 30 units QHS SQ Last administered on 10/20/16 21:03; Start 10/20/16 at 21:00; Stop 10/21/16 at 14:52; Status DC Ondansetron HCl 4 mg 4 mg Q8HRS PO Last administered on 10/21/16 06:17; Start 10/20/16 at 22:00; Stop 10/21/16 at 17:24; Status DC Sodium Chloride 500 ml @ 500 mls/hr 1X ONCE IV ; Start 10/20/16 at 15:30; Stop 10/20/16 at 16:29; Status DC Piperacillin Sod/ Tazobactam Sod 2.25 gm/Sodium Chloride 50 ml @ 100 mls/hr Q6HRS IV Last administered on 10/27/16 06:03; Start 10/21/16 at 00:00; Stop at 07:43; Status DC Vancomycin HCl/ Sodium Chloride (Iv Sodium Chloride 0.9% 250ml) 250 ml @ 167 mls/hr Q24H IV ; Start 10/21/16 at 16:00; Stop 10/21/16 at 16:00; Status DC Vancomycin HCl 1 each 1 each 1X ONCE MC ; Start 10/22/16 at 15:30; Stop 10/22/16 at 15:31; Status Cancel Dopamine HCl/ Dextrose 250 ml @ 13.183 mls/ hr CONT PRN IV SEE I/O RECORD Last administered on 10/20/16 20:38; Start 10/20/16 at 19:30; Stop 10/28/16 at 15 :26; Status DC Digoxin (Lanoxin) 250 mcg 1X ONCE IV Last administered on 10/20/16 21:02; Start 10/20/16 at 20:45; Stop 10/20/16 at 20:46; Status DC Digoxin (Lanoxin) 250 mcg 1X ONCE IV Last administered on 10/21/16 01:48; Start 10/21/16 at 02:00; Stop 10/21/16 at 02:01; Status DC Digoxin 250 mcg 250 mcg 1X ONCE IV Last administered on 10/21/16 04:12; Start 10/21/16 at 04:15; Stop 10/21/16 at 04:16; Status DC Diltiazem HCl 125 mg/Dextrose 125 ml @ 0 mls/hr CONT PRN IV SEE I/O RECORD Last administered on 10/21/16 23:03; Start 10/21/16 at 04:15; Stop 10/22/16 at 09: 44; Status DC Linezolid 300 ml @ 300 mls/hr Q12HR IV Last administered on 10/22/16 20:18; Start 10/21/16 at 09:00; Stop 10/23/16 at 07:26; Status DC Magnesium Sulfate/ Dextrose 50 ml @ 25 mls/hr PRN DAILY PRN IV for Mag < 1.7 on am labs Last administered on 10/22/16 15:15; Start 10/21/16 at 09:45 Albumin Human (Plasmanate) 500 ml @ 125 mls/hr 1X ONCE IV Last administered on 3/8/17at 10:25; Start 10/21/16 at 09:45; Stop 10/21/16 at 13:44; Status DC Ondansetron HCl (Zofran) 4 mg PRN Q6HRS PRN IV Nausea; Start 10/21/16 at 10:00; Stop 10/22/16 at 09:59; Status DC Fentanyl Citrate (Fentanyl 2ml Vial) 25 mcg PRN Q5MIN PRN IV MILD PAIN; Start 10/21/16 at 10:00; Stop 10/22/16 at 09:59; Status DC Fentanyl Citrate (Fentanyl 2ml Vial) 50 mcg PRN Q5MIN PRN IV MODERATE PAIN; Start 10/21/16 at 10:00; Stop 10/22/16 at 09:59; Status DC Morphine Sulfate 1 mg 1 mg PRN Q10MIN PRN IV SEVERE PAIN; Start 10/21/16 at 10: 00; Stop 10/22/16 at 09:59; Status DC Lactated Ringer's (Iv Lactated Ringers) 1,000 ml @ 30 mls/hr Q24H IV ; Start at 09:50; Stop 10/21/16 at 21:49; Status DC Lidocaine HCl 2 ml 1X PRN PRN ID IV START; Start 10/21/16 at 10:00; Stop at 09:59; Status DC Hydromorphone HCl (Dilaudid) 0.5 mg PRN Q10MIN PRN IV SEV PAIN,Second choice; Start 10/21/16 at 10:00; Stop 10/22/16 at 09:59; Status DC Prochlorperazine Edisylate 5 mg 5 mg PACU PRN PRN IV NAUSEA; Start 10/21/16 at 10:00; Stop 10/22/16 at 09:59; Status DC Sodium Chloride (Iv Sodium Chloride 0.9% 500ml Bag) 500 ml @ 0 mls/hr PRN QID PRN IV UO< 30cc/hr over previous 6hrs; Start 10/21/16 at 10:15; Stop 10/21/16 at 17:27; Status DC Ondansetron HCl (Zofran) 4 mg PRN Q6HRS PRN IV Nausea; Start 10/21/16 at 11:30; Stop 10/22/16 at 11:29; Status DC Morphine Sulfate 1 mg 1 mg PRN Q10MIN PRN IV SEVERE PAIN; Start 10/21/16 at 11: 30; Stop 10/22/16 at 11:29; Status DC Lactated Ringer's (Iv Lactated Ringers) 1,000 ml @ 0 mls/hr Q0M IV ; Start 10/21 at 11:19; Stop 10/21/16 at 23:18; Status DC Lidocaine HCl 2 ml 1X PRN PRN ID IV START; Start 10/21/16 at 11:30; Stop at 11:29; Status DC Hydromorphone HCl (Dilaudid) 0.5 mg PRN Q10MIN PRN IV SEV PAIN,Second choice; Start 10/21/16 at 11:30; Stop 10/22/16 at 11:29; Status DC Prochlorperazine Edisylate (Compazine) 5 mg PACU PRN PRN IV NAUSEA; Start at 11:30; Stop 10/22/16 at 11:29; Status DC Atorvastatin Calcium (Lipitor) 20 mg QHS PO Last administered on 11/01/16t 20: 48; Start 10/21/16 at 21:00 Aspirin (Ecotrin) 81 mg DAILYWBKFT PO Last administered on 11/02/16t 12:28; Start 10/21/16 at 12:00 Ondansetron HCl (Zofran) 4 mg PRN Q6HRS PRN IV Nausea; Start 10/22/16 at 07:00; Stop 10/23/16 at 06:59; Status DC Morphine Sulfate 1 mg 1 mg PRN Q10MIN PRN IV SEVERE PAIN; Start 10/22/16 at 07: 00; Stop 10/23/16 at 06:59; Status DC Lactated Ringer's (Iv Lactated Ringers) 1,000 ml @ 30 mls/hr Q24H IV ; Start at 07:00; Stop 10/22/16 at 15:07; Status DC Lidocaine HCl 2 ml 1X PRN PRN ID IV START; Start 10/22/16 at 07:00; Stop at 06:59; Status DC Hydromorphone HCl (Dilaudid) 0.5 mg PRN Q10MIN PRN IV SEVERE PAIN, Second choice; Start 10/22/16 at 07:00; Stop 10/23/16 at 06:59; Status DC Prochlorperazine Edisylate (Compazine) 5 mg PACU PRN PRN IV NAUSEA; Start at 07:00; Stop 10/23/16 at 06:59; Status DC Aspirin (Ecotrin) 81 mg DAILYWBKFT PO ; Start 10/22/16 at 08:00; Status UNV Insulin Detemir (Levemir) 20 units QHS SQ ; Start 10/21/16 at 21:00; Stop at 08:29; Status DC Ondansetron HCl 4 mg 4 mg PRN Q8HRS PRN PO NAUSEA; Start 10/22/16 at 14:00 Sodium Chloride 1,000 ml @ 175 mls/hr Q5H43M IV Last administered on 05:30; Start 10/21/16 at 18:00; Stop 10/23/16 at 07:20; Status DC Dextrose 1,000 ml @ 75 mls/hr [id number] IV Last administered on 10/22/16 04:54; Start 10/22/16 at 04:45; Stop 10/22/16 at 15:05; Status DC Bupivacaine HCl (Sensorcaine Mpf 0.5%) 30 ml STK-MED ONCE .ROUTE ; Start at 06:45; Stop 10/22/16 at 06:46; Status DC Lidocaine HCl 20 ml 20 ml STK-MED ONCE .ROUTE ; Start 10/22/16 at 06:46; Stop 10/22/16 at 06:47; Status DC Propofol (Diprivan) 20 ml @ As Directed STK-MED ONCE IV ; Start 10/22/16 at 08:02 ; Stop 10/22/16 at 08:03; Status DC Lidocaine HCl 100 mg STK-MED ONCE .ROUTE ; Start 10/22/16 at 08:02; Stop 10/22/16 at 08:03; Status DC Ondansetron HCl (Zofran) 4 mg STK-MED ONCE .ROUTE ; Start 10/22/16 at 08:31; Stop 10/22/16 at 08:32; Status DC Phenylephrine HCl 1 mg STK-MED ONCE IV ; Start 10/22/16 at 08:31; Stop 10/22/16 at 08:32; Status DC Dexamethasone Sodium Phosphate (Decadron) 20 mg STK-MED ONCE .ROUTE ; Start 10/22 at 08:48; Stop 10/22/16 at 08:49; Status DC Sevoflurane (Ultane) 30 ml STK-MED ONCE IH ; Start 10/22/16 at 08:48; Stop at 08:49; Status DC Diltiazem HCl (Cardizem) 30 mg Q6HRS PO Last administered on 10/27/16 11:27; Start 10/22/16 at 10:00; Stop 10/27/16 at 12:31; Status DC Metoprolol Tartrate 5 mg 5 mg PRN Q6HRS PRN IVP ELEVATED BP, SEE COMMENTS; Start 10/22/16 at 09:45 Albumin Human (Plasmanate) 500 ml @ 125 mls/hr 1X ONCE IV Last administered on 10/22/16 11:20; Start 10/22/16 at 09:45; Stop 10/22/16 at 13:44; Status DC Info (Anti-Coagulation Monitoring By Pharmacy) 1 each PRN DAILY PRN MC SEE COMMENTS; Start 10/22/16 at 15:15; Status UNV Heparin Sodium (Porcine) 5,000 unit Q12HR SQ Last administered on 10/28/16 11: 08; Start 10/22/16 at 21:00; Stop 10/28/16 at 16:02; Status DC Loperamide HCl (Imodium) 2 mg PRN Q15MIN PRN PO DIARRHEA Last administered on 09:27; Start 10/22/16 at 20:00 Insulin Human Regular (Novolin R Vial) 10 unit 1X ONCE IV Last administered on 10/22/16 23:52; Start 10/22/16 at 01:00; Stop 10/22/16 at 23:46; Status DC Insulin Detemir (Levemir) 10 units 1X ONCE SQ Last administered on 10/22/16 23 :53; Start 10/22/16 at 23:45; Stop 10/22/16 at 23:46; Status DC Insulin Human Regular 10 unit 10 unit 1X ONCE IV Last administered on 00:09; Start 10/23/16 at 00:00; Stop 10/23/16 at 00:01; Status DC Sodium Chloride 38.75 meq/Sodium Bicarbonate 75 meq/Sterile Water 1,084.6875 ml @ 150 mls/hr CONT PRN IV SEE I/O RECORD Last administered on 10/24/16 07:12; Start 10/23/16 at 07:30 Albumin Human (Albuminar) 100 ml @ 100 mls/hr TID IV Last administered on 10/24 21:23; Start 10/23/16 at 09:00; Stop 10/24/16 at 21:59; Status DC Heparin Sodium (Porcine) 10,000 unit STK-MED ONCE .ROUTE ; Start 10/23/16 at 07: 55; Stop 10/23/16 at 07:56; Status DC Lidocaine/Sodium Bicarbonate 20 ml 20 ml STK-MED ONCE IJ ; Start 10/23/16 at 07: 55; Stop 10/23/16 at 07:56; Status DC Heparin Sodium/ Sodium Chloride 500 ml @ As Directed STK-MED ONCE .ROUTE ; Start 10/23/16 at 07:55; Stop 10/23/16 at 07:56; Status DC Insulin Detemir (Levemir) 20 units [id number] SQ ; Start 10/23/16 at 08:00; Stop at 08:01; Status DC Insulin Aspart (Novolog) 10 units TIDAC SQ Last administered on 10/23/16 17:46 ; Start 10/23/16 at 11:30; Stop 10/24/16 at 11:12; Status DC Insulin Detemir (Levemir) 30 units DAILY08 SQ Last administered on 10/23/16 09 :55; Start 10/23/16 at 08:30; Stop 10/24/16 at 11:12; Status DC Lidocaine/Sodium Bicarbonate (Buffered Lidocaine 1%) 3 ml 1X ONCE IJ Last administered on 10/23/16 08:48; Start 10/23/16 at 08:30; Stop 10/23/16 at 08:31 ; Status DC Heparin Sodium/ Sodium Chloride 60 unit 1X ONCE IV Last administered on 08:48; Start 10/23/16 at 08:30; Stop 10/23/16 at 08:31; Status DC Heparin Sodium (Porcine) 2,500 unit 1X ONCE INT CAT Last administered on 08:48; Start 10/23/16 at 08:30; Stop 10/23/16 at 08:31; Status DC Albuterol/ Ipratropium (Duoneb) 3 ml RTQID NEB Last administered on 11/02/16 15:22; Start 10/24/16 at 12:00 Albuterol/ Ipratropium (Duoneb) 3 ml 1X ONCE NEB Last administered on 09:11; Start 10/24/16 at 09:00; Stop 10/24/16 at 09:01; Status DC Budesonide (Pulmicort) 0.5 mg RTBID NEB Last administered on 11/02/16 07:44; Start 10/24/16 at 10:00 Insulin Aspart (Novolog) 7 units TIDAC SQ Last administered on 11/01/16 18:16 ; Start 10/24/16 at 11:30 Insulin Detemir (Levemir) 20 units [id number] SQ Last administered on 11/01/16 09 :37; Start 10/25/16 at 08:00 Potassium Chloride 20 meq 20 meq 1X ONCE PO Last administered on 10/24/16 18: 28; Start 10/24/16 at 12:00; Stop 10/24/16 at 12:01; Status DC Sodium Chloride 1,000 ml @ 1,000 mls/hr Q1H PRN IV hypotension; Start 10/24/16 at 13:00; Stop 10/24/16 at 18:59; Status DC Albumin Human (Albuminar) 200 ml @ 200 mls/hr 1X PRN PRN IV Hypotension; Start 10/24/16 at 14:00; Stop 10/24/16 at 19:59; Status DC Acetaminophen (Tylenol) 500 mg 1X PRN PRN PO MILD PAIN / TEMP; Start 10/24/16 at 14:00; Stop 10/25/16 at 13:59; Status DC Diphenhydramine HCl (Benadryl) 25 mg 1X PRN PRN IV ITCHING; Start 10/24/16 at 14:00; Stop 10/25/16 at 13:59; Status DC Diphenhydramine HCl (Benadryl) 25 mg 1X PRN PRN IV ITCHING; Start 10/24/16 at 14:00; Stop 10/25/16 at 13:59; Status DC Info (PHARMACY MONITORING -- do not chart) 1 each PRN DAILY PRN MC SEE COMMENTS ; Start 10/24/16 at 14:00; Stop 10/25/16 at 13:16; Status DC Potassium Chloride 20 meq 20 meq 1X ONCE PO ; Start 10/24/16 at 18:30; Stop 07/02 at 18:31; Status DC Amino Acids/ Electrolytes (Clinimix E 2.75%-5% Solution) 1,000 ml @ 55 mls/hr [id number] IV Last administered on 10/27/16 00:52; Start 10/25/16 at 12:00; Stop 10/27/16 at 14:10; Status DC Hydralazine HCl 10 mg 10 mg PRN Q4HRS PRN IVP ELEVATED BP, SEE COMMENTS Last administered on 10/27/16 06:05; Start 10/25/16 at 12:45 Sodium Chloride 1,000 ml @ 1,000 mls/hr Q1H PRN IV hypotension; Start 10/25/16 at 13:07; Stop 10/25/16 at 19:06; Status DC Albumin Human (Albuminar) 200 ml @ 200 mls/hr 1X PRN PRN IV Hypotension Last administered on 10/25/16 14:30; Start 10/25/16 at 13:15; Stop 10/25/16 at 19:14 ; Status DC Acetaminophen (Tylenol) 500 mg 1X PRN PRN PO MILD PAIN / TEMP; Start 10/25/16 at 13:15; Stop 10/26/16 at 13:14; Status DC Diphenhydramine HCl (Benadryl) 25 mg 1X PRN PRN IV ITCHING; Start 10/25/16 at 13:15; Stop 10/26/16 at 13:14; Status DC Diphenhydramine HCl (Benadryl) 25 mg 1X PRN PRN IV ITCHING; Start 10/25/16 at 13:15; Stop 10/26/16 at 13:14; Status DC Info (PHARMACY MONITORING -- do not chart) 1 each PRN DAILY PRN MC SEE COMMENTS ; Start 10/25/16 at 13:15 Famotidine (Pepcid) 20 mg QHS IVP Last administered on 10/26/16 21:17; Start 10/26/16 at 21:00; Stop 10/27/16 at 11:20; Status DC Furosemide 40 mg 40 mg [id number] IVP Last administered on 11/01/16 09:26; Start at 12:00; Stop 11/01/16 at 11:07; Status DC Sodium Chloride 1,000 ml @ 1,000 mls/hr Q1H PRN IV hypotension; Start 10/26/16 at 13:55; Stop 10/26/16 at 19:54; Status DC Sodium Chloride (Iv Sodium Chloride 0.9% 1000ml Bag) 1,000 ml @ 400 mls/hr Q2H30M PRN IV PATENCY; Start 10/26/16 at 13:55; Stop 10/27/16 at 01:54; Status DC Info 1 each 1 each PRN DAILY PRN MC SEE COMMENTS; Start 10/26/16 at 14:00; Status UNV Meropenem/Sodium Chloride (Merrem/Iv Sodium Chloride 0.9% 50ml) 50 ml @ 100 mls /hr Q6HRS IV Last administered on 10/28/16 06:00; Start 10/27/16 at 12:00; Stop 10/28/16 at 09:22; Status DC Metoprolol Tartrate (Lopressor) 25 mg BID PO Last administered on 11/02/16 12: 29; Start 10/27/16 at 12:00 Famotidine (Pepcid) 20 mg QHS PO Last administered on 11/01/16 20:48; Start at 21:00 Diltiazem HCl (Cardizem 24hr Cd) 180 mg DAILYBFRSUP PO Last administered on 18:08; Start 10/27/16 at 17:00 Regadenoson (Lexiscan) 0.4 mg 1X ONCE IV Last administered on 10/28/16 09:18 ; Start 10/28/16 at 07:45; Stop 10/28/16 at 07:46; Status DC Lactobacillus Acidophilus 1 tab 1 tab TIDWMEALS PO Last administered on 3/20/ 17at 12:30; Start 10/28/16 at 12:00 Meropenem 500 mg/ Sodium Chloride 50 ml @ 100 mls/hr Q12HR IV Last administered on 10/29/16t 21:36; Start 10/28/16 at 21:00; Stop 10/30/16 at 09:05 ; Status DC Sodium Chloride 1,000 ml @ 1,000 mls/hr Q1H PRN IV hypotension; Start 10/28/16 at 09:34; Stop 10/28/16 at 15:33; Status DC Albumin Human (Albuminar) 200 ml @ 200 mls/hr 1X PRN PRN IV Hypotension; Start 10/28/16 at 09:45; Stop 10/28/16 at 15:44; Status DC Acetaminophen (Tylenol) 500 mg 1X PRN PRN PO MILD PAIN / TEMP; Start 10/28/16 at 09:45; Stop 10/28/16 at 16:02; Status DC Diphenhydramine HCl (Benadryl) 25 mg 1X PRN PRN IV ITCHING; Start 10/28/16 at 09:45; Stop 10/28/16 at 16:02; Status DC Diphenhydramine HCl (Benadryl) 25 mg 1X PRN PRN IV ITCHING; Start 10/28/16 at 09:45; Stop 10/28/16 at 16:02; Status DC Sodium Chloride (Normal Saline Flush) 10 ml 1X PRN PRN IV AP catheter pack; Start 10/28/16 at 09:45; Stop 10/28/16 at 16:02; Status DC Sodium Chloride (Normal Saline Flush) 10 ml 1X PRN PRN IV FIRE WARDEN catheter pack; Start 10/28/16 at 09:45; Stop 10/28/16 at 16:02; Status DC Labetalol HCl 10 mg 10 mg PRN Q1HR PRN IVP SBP > 180; Start 10/28/16 at 09:45; Stop 10/28/16 at 16:02; Status DC Sodium Chloride (Iv Sodium Chloride 0.9% 1000ml Bag) 1,000 ml @ 400 mls/hr Q2H30M PRN IV PATENCY; Start 10/28/16 at 09:34; Stop 10/28/16 at 21:33; Status DC Info 1 each 1 each PRN DAILY PRN MC SEE COMMENTS; Start 10/28/16 at 09:45; Status UNV Sodium Chloride (Iv Sodium Chloride 0.9% 1000ml Bag) 1,000 ml @ 1,000 mls/hr Q1H PRN IV hypotension; Start 10/28/16 at 12:47; Stop 10/28/16 at 18:46; Status UNV Diphenhydramine HCl (Benadryl) 25 mg 1X PRN PRN IV ITCHING; Start 10/28/16 at 13:00; Stop 10/29/16 at 12:59; Status UNV Diphenhydramine HCl (Benadryl) 25 mg 1X PRN PRN IV ITCHING; Start 10/28/16 at 13:00; Stop 10/29/16 at 12:59; Status UNV Sodium Chloride (Normal Saline Flush) 10 ml 1X PRN PRN IV AP catheter pack; Start 10/28/16 at 13:00; Stop 10/29/16 at 12:59; Status UNV Sodium Chloride 10 ml 10 ml 1X PRN PRN IV FIRE WARDEN catheter pack; Start 10/28/16 at 13:00; Stop 10/29/16 at 12:59; Status UNV Sodium Chloride (Iv Sodium Chloride 0.9% 1000ml Bag) 1,000 ml @ 400 mls/hr Q2H30M PRN IV PATENCY; Start 10/28/16 at 12:47; Stop 10/29/16 at 00:46; Status UNV Info (PHARMACY MONITORING -- do not chart) 1 each PRN DAILY PRN MC SEE COMMENTS ; Start 10/28/16 at 13:00; Status UNV Apixaban 5 mg 5 mg BID PO Last administered on 11/02/16t 12:28; Start 10/28/16 at 21:00 Sodium Chloride 1,000 ml @ 1,000 mls/hr Q1H PRN IV hypotension; Start 10/30/16 at 08:30; Stop 10/30/16 at 15:00; Status DC Albumin Human 200 ml @ 200 mls/hr 1X PRN PRN IV Hypotension; Start 10/30/16 at 08:30; Stop 10/30/16 at 14:29; Status DC Sodium Chloride (Iv Sodium Chloride 0.9% 1000ml Bag) 1,000 ml @ 400 mls/hr Q2H30M PRN IV PATENCY; Start 10/30/16 at 08:21; Stop 10/30/16 at 16:00; Status DC Info 1 each 1 each PRN DAILY PRN MC SEE COMMENTS; Start 10/30/16 at 08:30; Status UNV Piperacillin Sod/ Tazobactam Sod/ Sodium Chloride (Zosyn/Iv Sodium Chloride 0.9 % 50ml) 50 ml @ 100 mls/hr Q6HRS IV Last administered on 11/02/16 12:29; Start 10/30/16 at 12:00 Info (Anti-Coagulation Monitoring By Pharmacy) 1 each PRN DAILY PRN MC SEE COMMENTS Last administered on 11/02/16 13:20; Start 10/30/16 at 12:45 Heparin Sodium (Porcine) 10,000 unit STK-MED ONCE .ROUTE ; Start 10/30/16 at 13: 21; Stop 10/30/16 at 13:22; Status DC Lidocaine/ Epinephrine 20 ml 20 ml STK-MED ONCE .ROUTE ; Start 10/30/16 at 13:21 ; Stop 10/30/16 at 13:22; Status DC Heparin Sodium/ Sodium Chloride 500 ml @ As Directed STK-MED ONCE .ROUTE ; Start 10/30/16 at 13:21; Stop 10/30/16 at 13:22; Status DC Midazolam HCl (Versed) 2 mg STK-MED ONCE .ROUTE ; Start 10/30/16 at 13:33; Stop 10/30/16 at 13:34; Status DC Fentanyl Citrate 100 mcg 100 mcg STK-MED ONCE .ROUTE ; Start 10/30/16 at 13:34; Stop 10/30/16 at 13:35; Status DC Cefazolin Sodium (Ancef 1gm Ivpb For Omni) 0 ml @ As Directed STK-MED ONCE IV ; Start 10/30/16 at 13:34; Stop 10/30/16 at 13:35; Status DC Heparin Sodium/ Sodium Chloride 1,000 unit 1X ONCE IART Last administered on 14:18; Start 10/30/16 at 14:00; Stop 10/30/16 at 14:12; Status DC Midazolam HCl (Versed) 2 mg 1X ONCE IV Last administered on 10/30/16 14:18; Start 10/30/16 at 14:00; Stop 10/30/16 at 14:12; Status DC Fentanyl Citrate (Fentanyl 2ml Vial) 100 mcg 1X ONCE IV Last administered on 14:19; Start 10/30/16 at 14:00; Stop 10/30/16 at 14:12; Status DC Lidocaine/ Epinephrine (Xylocaine 1%-Epi 1:100,000) 9 ml 1X ONCE IJ Last administered on 10/30/16 14:18; Start 10/30/16 at 14:00; Stop 10/30/16 at 14:12 ; Status DC Heparin Sodium (Porcine) 4,300 unit 1X ONCE INT CAT Last administered on 14:18; Start 10/30/16 at 14:00; Stop 10/30/16 at 14:12; Status DC Furosemide 40 mg 40 mg DAILY PO ; Start 11/02/16 at 09:00 Sodium Chloride (Iv Sodium Chloride 0.9% 1000ml Bag) 1,000 ml @ 1,000 mls/hr Q1H PRN IV hypotension; Start 11/02/16 at 09:07; Stop 11/02/16 at 15:06; Status DC Sodium Chloride (Normal Saline Flush) 2.1 ml 1X PRN PRN IV AP catheter pack; Start 11/02/16 at 09:15; Stop 11/03/16 at 09:14 Sodium Chloride (Normal Saline Flush) 2.2 ml 1X PRN PRN IV FIRE WARDEN catheter pack; Start 11/02/16 at 09:15; Stop 11/03/16 at 09:14 Info (PHARMACY MONITORING -- do not chart) 1 each PRN DAILY PRN MC SEE COMMENTS ; Start 11/02/16 at 09:15; Stop 11/02/16 at 14:41; Status DC Active Scripts Active Reported Zofran Odt (Ondansetron) 8 Mg Tab.rapdis 1 Tab PO Q8HRS Colace (Docusate Sodium) 100 Mg Capsule 1 Cap PO BID Hydrocodone-Apap 7.5-325 (Hydrocodone Bit/Acetaminophen) 1 Each Tablet 1 Tab PO Q3HRS PRN Glimepiride 4 Mg Tablet 1 Tab PO BID Glimepiride 2 Mg Tablet 1 Tab PO BID Levemir (Insulin Detemir) 100 Unit/1 Ml Vial 30 Unit SQ HS Vitals/I & O Vital Sign - Last 24 Hours 311/01/16 11/01/16 11/01/16 18:08 19:00 19:43 20:06 Temp 98.1 98.1 Pulse 87 85 Resp 20 B/P 121/55 136/59 Pulse Ox 98 98 O2 Delivery Nasal Cannula Nasal Cannula Nasal Cannula O2 Flow Rate 2.0 2.0 11/01/16 11/01/16 11/02/16 11/02/16 20:49 23:00 03:17 07:00 Temp 97.9 97.3 98.5 97.9 97.3 98.5 Pulse 85 86 83 80 Resp 20 20 18 B/P 136/59 114/45 126/53 136/92 Pulse Ox 96 92 93 O2 Delivery Nasal Cannula Nasal Cannula Nasal Cannula 11/02/16 11/02/16 11/02/16 11/02/16 07:45 08:00 11:58 12:29 Pulse 135 B/P 107/60 Pulse Ox 93 O2 Delivery Nasal Cannula Nasal Cannula Nasal Cannula O2 Flow Rate 2.0 2.0 2.0 11/02/16 11/02/16 15:00 15:22 Temp 98.9 98.9 Pulse 98 Resp 18 B/P 106/55 Pulse Ox 97 O2 Delivery Nasal Cannula Nasal Cannula O2 Flow Rate 2.0 Intake and Output 11/01/16 11/01/16 11/02/16 15:00 23:00 07:00 Intake Total 250 ml 550 ml 400 ml Output Total 200 ml 200 ml Balance 250 ml 350 ml 200 ml BEKA CARRION MD Nov 02, 2016 16:14
[2016-11-02] MEDS: DILTIAZEM HCL 180 MG CAP.ER.24H PO SCH (16:42)
[2016-11-02 19:00] VITALS: BP 120/52
[2016-11-02] MEDS: ATORVASTATIN CALCIUM 20 MG TABLET PO SCH (21:47)
[2016-11-02] MEDS: LOPERAMIDE 2 MG CAPSULE PO PRN (21:48)
[2016-11-02] MEDS: FAMOTIDINE 20 MG TABLET. PO SCH (21:48)
[2016-11-02 23:00] VITALS: BP 136/64
[2016-11-03] VITALS (10 sets, daily range): BP systolic 108–136; BP diastolic 56–68
[2016-11-03 04:23] LABS: BASO # 0.1 x10^3/uL (0.0-0.2); BASO % 1 % (0-3); EOS % 2 % (0-3); HEMATOCRIT 22.9 % (39.0-53.0); HEMOGLOBIN 7.5 g/dL (13.0-17.5); LYMPH % 17 % (24-48); MEAN CORPUSCULAR HEMOGLOBIN 28 pg (25-35); MEAN CORPUSCULAR HGB CONC 33 g/dL (31-37); MEAN CORPUSCULAR VOLUME 87 fL (79-100); MONO % 11 % (0-9); NEUT % 69 % (31-73); PLATELET COUNT 136 x10^3/uL (140-400); RED BLOOD COUNT 2.64 x10^6/uL (4.30-5.70); RED CELL DISTRIBUTION WIDTH 15.5 % (11.5-14.5); WHITE BLOOD COUNT 5.8 x10^3/uL (4.0-11.0)
[2016-11-03] MEDS: PIPERACILLIN/TAZOBACTAM 2.25 GM in IV NORMAL SALINE 50ML 50 ML IV SCH ×3 (05:44→17:46)
[2016-11-03] MEDS: IPRATRPIUM/ALBUTEROL 0.5/2.5MG 3 ML NEBU. NEB SCH ×4 (07:49→20:54)
[2016-11-03] MEDS: BUDESONIDE 0.5 MG/2 ML NEBU NEB SCH ×2 (07:49→20:54)
[2016-11-03] MEDS: INSULIN DETEMIR 300 UNITS/3 ML INSULN.PEN. SQ SCH (08:00)
[2016-11-03] MEDS: INSULIN ASPART 300 UNITS/3 ML INSULN.PEN SQ SCH ×6 (08:00→17:22)
[2016-11-03] MEDS: ASPIRIN ENTERIC COATED 81 MG TABLET.DR. PO SCH (08:47)
[2016-11-03] MEDS: LACTOBACILLUS ACIDOPH & BULGAR 1 TABLET. PO SCH ×3 (08:47→17:18)
[2016-11-03] MEDS: APIXABAN 5 MG TABLET. PO SCH ×2 (08:48→21:44)
[2016-11-03] MEDS: FUROSEMIDE 40 MG TABLET PO SCH (08:48)
[2016-11-03] MEDS: METOPROLOL TART IMMED RELEASE 25 MG TABLET PO SCH ×2 (08:48→21:44)
[2016-11-03] MEDS: DOCUSATE SODIUM 100 MG CAPSULE PO SCH ×2 (09:00→21:44)
--- NOTE | 2016-11-03 10:23 | PDOC ---
Infectious Disease Note Subjective Subjective pt feeling good ROS ROS GEN: Denies fevers, chills, sweats HEENT: Denies blurred vision, sore throat CV: Denies chest pain RESP: Denies shortness of air, cough GI: Denies n/v/d NEURO: Denies confusion, dizziness MSK: Denies weakness, joint pain/swelling Vital Sign Vital Signs Vital Signs Date Time Temp Pulse Resp B/P Pulse Ox O2 Delivery O2 Flow Rate FiO2 11/03/16 08:48 86 136/68 11/03/16 08:00 Nasal Cannula 2.0 11/03/16 07:49 97 11/03/16 07:00 98.2 18 98.2 Physical Exam PHYSICAL EXAM GENERAL: NAD, Alert HEENT: PERRL, OC/OP NECK: Supple, no JVD, no LN LUNGS: Clear HEART: S1S2, no gallop, no murmur ABD: Soft, NT, no organomegaly, no rebound EXT: No edema, no cyanosis [employer]: Alert, oriented x 3, no focal neurologic deficit SKIN: No rash IV: ok Labs Lab Laboratory Tests Test 11/02/16 12:06 11/02/16 16:38 11/02/16 21:36 11/03/16 03:52 Glucose (Fingerstick) 158mg/dL (70-99) 313mg/dL (70-99) 178mg/dL (70-99) White Blood Count 5.8x10^3/uL (4.0-11.0) Red Blood Count 2.64x10^6/uL (4.30-5.70) Hemoglobin 7.5g/dL (13.0-17.5) Hematocrit 22.9% (39.0-53.0) Mean Corpuscular Volume 87fL (79-100) Mean Corpuscular Hemoglobin 28pg (25-35) Mean Corpuscular Hemoglobin Concent 33g/dL (31-37) Red Cell Distribution Width 15.5% (11.5-14.5) Platelet Count 136x10^3/uL (140-400) Neutrophils (%) (Auto) 69% (31-73) Lymphocytes (%) (Auto) 17% (24-48) Monocytes (%) (Auto) 11% (0-9) Eosinophils (%) (Auto) 2% (0-3) Basophils (%) (Auto) 1% (0-3) Neutrophils # (Auto) 4.1x10^3uL (1.8-7.7) Lymphocytes # (Auto) 1.0x10^3/uL (1.0-4.8) Monocytes # (Auto) 0.6x10^3/uL (0.0-1.1) Eosinophils # (Auto) 0.1x10^3/uL (0.0-0.7) Basophils # (Auto) 0.1x10^3/uL (0.0-0.2) Test 11/03/16 07:24 Glucose (Fingerstick) 175mg/dL (70-99) Micro BC + 4/4 G + cocci G A strep + Objective Assessment Group A strep bacteremia, 10/20 POA. repeat cults neg SOA - resolved CKD on HD Extensive left foot infection/osteo -s/p I and D necrotic tissue and bone, 10/[address] MSSA, Group A, Alcaligenes, Bacteroides (multiple nondominant GNR). Septic shock - resolved Lactic acidosis DM Loose stools, c. diff neg. 10/21 Plan Plan of Care Zosyn,, for 4 to 6 wks, may be changed to iv invanz Local wound care Probiotics Supportive care d/c to SNF/select JASVIR DE LEON MD Nov 03, 2016 10:23
--- NOTE | 2016-11-03 10:31 | PDOC ---
G I PROGRESS NOTE Subjective Loose stools improving. No real complaints GI-sellers. Physical Exam Lungs clear. RRR Abdomen soft, not tender nor distended. Review of Relevant I have reviewed the following items jovan (where applicable) has been applied. Labs Laboratory Tests Test 11/01/16 11:27 11/01/16 16:57 11/01/16 20:36 11/02/16 04:50 Glucose (Fingerstick) 163mg/dL (70-99) 141mg/dL (70-99) 111mg/dL (70-99) White Blood Count 9.0x10^3/uL (4.0-11.0) Red Blood Count 2.99x10^6/uL (4.30-5.70) Hemoglobin 8.4g/dL (13.0-17.5) Hematocrit 25.2% (39.0-53.0) Mean Corpuscular Volume 84fL (79-100) Mean Corpuscular Hemoglobin 28pg (25-35) Mean Corpuscular Hemoglobin Concent 33g/dL (31-37) Red Cell Distribution Width 15.2% (11.5-14.5) Platelet Count 166x10^3/uL (140-400) Neutrophils (%) (Auto) 77% (31-73) Lymphocytes (%) (Auto) 13% (24-48) Monocytes (%) (Auto) 8% (0-9) Eosinophils (%) (Auto) 2% (0-3) Basophils (%) (Auto) 1% (0-3) Neutrophils # (Auto) 7.0x10^3uL (1.8-7.7) Lymphocytes # (Auto) 1.1x10^3/uL (1.0-4.8) Monocytes # (Auto) 0.7x10^3/uL (0.0-1.1) Eosinophils # (Auto) 0.1x10^3/uL (0.0-0.7) Basophils # (Auto) 0.1x10^3/uL (0.0-0.2) Sodium Level 144mmol/L (136-145) Potassium Level 5.4mmol/L (3.5-5.1) Chloride Level 107mmol/L (98-107) Carbon Dioxide Level 27mmol/L (21-32) Anion Gap 10 (6-14) Blood Urea Nitrogen 64mg/dL (8-26) Creatinine 4.2mg/dL (0.7-1.3) Estimated GFR (Cockcroft-Gault) 14.1 Glucose Level 91mg/dL (70-99) Calcium Level 8.3mg/dL (8.5-10.1) Test 11/02/16 07:41 11/02/16 12:06 11/02/16 16:38 11/02/16 21:36 Glucose (Fingerstick) 87mg/dL (70-99) 158mg/dL (70-99) 313mg/dL (70-99) 178mg/dL (70-99) Test 11/03/16 03:52 11/03/16 07:24 White Blood Count 5.8x10^3/uL (4.0-11.0) Red Blood Count 2.64x10^6/uL (4.30-5.70) Hemoglobin 7.5g/dL (13.0-17.5) Hematocrit 22.9% (39.0-53.0) Mean Corpuscular Volume 87fL (79-100) Mean Corpuscular Hemoglobin 28pg (25-35) Mean Corpuscular Hemoglobin Concent 33g/dL (31-37) Red Cell Distribution Width 15.5% (11.5-14.5) Platelet Count 136x10^3/uL (140-400) Neutrophils (%) (Auto) 69% (31-73) Lymphocytes (%) (Auto) 17% (24-48) Monocytes (%) (Auto) 11% (0-9) Eosinophils (%) (Auto) 2% (0-3) Basophils (%) (Auto) 1% (0-3) Neutrophils # (Auto) 4.1x10^3uL (1.8-7.7) Lymphocytes # (Auto) 1.0x10^3/uL (1.0-4.8) Monocytes # (Auto) 0.6x10^3/uL (0.0-1.1) Eosinophils # (Auto) 0.1x10^3/uL (0.0-0.7) Basophils # (Auto) 0.1x10^3/uL (0.0-0.2) Glucose (Fingerstick) 175mg/dL (70-99) Laboratory Tests Test 11/02/16 12:06 11/02/16 16:38 11/02/16 21:36 11/03/16 03:52 Glucose (Fingerstick) 158mg/dL (70-99) 313mg/dL (70-99) 178mg/dL (70-99) White Blood Count 5.8x10^3/uL (4.0-11.0) Red Blood Count 2.64x10^6/uL (4.30-5.70) Hemoglobin 7.5g/dL (13.0-17.5) Hematocrit 22.9% (39.0-53.0) Mean Corpuscular Volume 87fL (79-100) Mean Corpuscular Hemoglobin 28pg (25-35) Mean Corpuscular Hemoglobin Concent 33g/dL (31-37) Red Cell Distribution Width 15.5% (11.5-14.5) Platelet Count 136x10^3/uL (140-400) Neutrophils (%) (Auto) 69% (31-73) Lymphocytes (%) (Auto) 17% (24-48) Monocytes (%) (Auto) 11% (0-9) Eosinophils (%) (Auto) 2% (0-3) Basophils (%) (Auto) 1% (0-3) Neutrophils # (Auto) 4.1x10^3uL (1.8-7.7) Lymphocytes # (Auto) 1.0x10^3/uL (1.0-4.8) Monocytes # (Auto) 0.6x10^3/uL (0.0-1.1) Eosinophils # (Auto) 0.1x10^3/uL (0.0-0.7) Basophils # (Auto) 0.1x10^3/uL (0.0-0.2) Test 11/03/16 07:24 Glucose (Fingerstick) 175mg/dL (70-99) Microbiology 10/25/16 Blood Culture - Final, Complete NO GROWTH AFTER 5 DAYS 10/21/16 Urine Culture - Final, Complete 10/21/16 Urine Culture Result 1 (HERBERT) - Final, Complete 10/22/16 Gram Stain - Final, Complete Hemoglobin dipped a bit; suspect from attrition. Medications Current Medications Diltiazem HCl 20 mg 20 mg 1X ONCE IVP Last administered on 10/20/16 13:35; Start 10/20/16 at 13:30; Stop 10/20/16 at 13:31; Status DC Diltiazem HCl 125 mg/Dextrose 125 ml @ 10 mls/hr 1X ONCE IV Last administered on 10/20/16 13:49; Start 10/20/16 at 13:30; Stop 10/20/16 at 19:37; Status DC Sodium Chloride (Iv Sodium Chloride 0.9% 1000ml Bag) 1,000 ml @ 100 mls/hr Q10H IV Last administered on 10/20/16 13:45; Start 10/20/16 at 13:30; Stop at 23:29; Status DC Diltiazem HCl (Cardizem) 20 mg 1X ONCE IVP Last administered on 10/20/16 14:16 ; Start 10/20/16 at 14:00; Stop 10/20/16 at 14:01; Status DC Vancomycin HCl (Vanco Per Pharmacy) 1 each PRN DAILY PRN MC SEE COMMENTS Last administered on 10/20/16 16:49; Start 10/20/16 at 14:45; Stop 10/21/16 at 07:42; Status DC Piperacillin Sod/ Tazobactam Sod 1 each 1 each PRN DAILY PRN MC SEE COMMENTS; Start 10/20/16 at 14:45; Stop 10/21/16 at 07:49; Status DC Vancomycin HCl 2 gm/Sodium Chloride 500 ml @ 250 mls/hr 1X ONCE IV Last administered on 10/20/16 15:45; Start 10/20/16 at 15:00; Stop 10/20/16 at 16:59; Status DC Piperacillin Sod/ Tazobactam Sod/ Sodium Chloride (Zosyn/Iv Sodium Chloride 0.9 % 50ml) 50 ml @ 100 mls/hr 1X ONCE IV Last administered on 10/20/16 15:04; Start 10/20/16 at 15:00; Stop 10/20/16 at 15:29; Status DC Ondansetron HCl (Zofran) 4 mg PRN Q8HRS PRN IV NAUSEA/VOMITING; Start 10/20/16 at 15:00; Stop 10/20/16 at 15:16; Status DC Fentanyl Citrate 50 mcg 50 mcg PRN Q2HR PRN IV PAIN; Start 10/20/16 at 15:00; Stop 10/21/16 at 14:59; Status DC Sodium Chloride (Iv Sodium Chloride 0.9% 1000ml Bag) 1,000 ml @ 100 mls/hr Q10H IV Last administered on 10/21/16 11:30; Start 10/20/16 at 15:30; Stop at 15:29; Status DC Acetaminophen (Tylenol) 650 mg PRN Q4HRS PRN PO FEVER; Start 10/20/16 at 15:00; Stop 10/21/16 at 14:59; Status DC Ondansetron HCl (Zofran) 4 mg PRN Q6HRS PRN IV NAUSEA/VOMITING; Start 10/20/16 at 15:12 Insulin Aspart (Novolog) 0-9 UNITS TIDWMEALS SQ Last administered on 11/02/16 16:45; Start 10/20/16 at 17:00 Dextrose 12.5 gm PRN Q15MIN PRN IV SEE COMMENTS Last administered on 10/26/16 23:42; Start 10/20/16 at 15:15 Docusate Sodium (Colace) 100 mg BID PO Last administered on 10/26/16 21:17; Start 10/20/16 at 21:00 Glimepiride (Amaryl) 2 mg BID PO ; Start 10/20/16 at 21:00; Status UNV Acetaminophen/ Hydrocodone Bitart (Lortab 7.5/325) 1 tab PRN Q3HRS PRN PO PAIN Last administered on 10/26/16 15:27; Start 10/20/16 at 15:15 Glimepiride (Amaryl) 4 mg BIDWMEALS PO Last administered on 10/20/16 17:32; Start 10/20/16 at 17:00; Stop 10/21/16 at 14:52; Status DC Insulin Detemir (Levemir) 30 units QHS SQ Last administered on 10/20/16 21:03; Start 10/20/16 at 21:00; Stop 10/21/16 at 14:52; Status DC Ondansetron HCl 4 mg 4 mg Q8HRS PO Last administered on 3/8/17at 06:17; Start 10/20/16 at 22:00; Stop 10/21/16 at 17:24; Status DC Sodium Chloride 500 ml @ 500 mls/hr 1X ONCE IV ; Start 10/20/16 at 15:30; Stop 10/20/16 at 16:29; Status DC Piperacillin Sod/ Tazobactam Sod 2.25 gm/Sodium Chloride 50 ml @ 100 mls/hr Q6HRS IV Last administered on 10/27/16 06:03; Start 10/21/16 at 00:00; Stop at 07:43; Status DC Vancomycin HCl/ Sodium Chloride (Iv Sodium Chloride 0.9% 250ml) 250 ml @ 167 mls/hr Q24H IV ; Start 10/21/16 at 16:00; Stop 10/21/16 at 16:00; Status DC Vancomycin HCl 1 each 1 each 1X ONCE MC ; Start 10/22/16 at 15:30; Stop 10/22/16 at 15:31; Status Cancel Dopamine HCl/ Dextrose 250 ml @ 13.183 mls/ hr CONT PRN IV SEE I/O RECORD Last administered on 10/20/16 20:38; Start 10/20/16 at 19:30; Stop 10/28/16 at 15 :26; Status DC Digoxin (Lanoxin) 250 mcg 1X ONCE IV Last administered on 10/20/16 21:02; Start 10/20/16 at 20:45; Stop 10/20/16 at 20:46; Status DC Digoxin (Lanoxin) 250 mcg 1X ONCE IV Last administered on 10/21/16 01:48; Start 10/21/16 at 02:00; Stop 10/21/16 at 02:01; Status DC Digoxin 250 mcg 250 mcg 1X ONCE IV Last administered on 10/21/16 04:12; Start 10/21/16 at 04:15; Stop 10/21/16 at 04:16; Status DC Diltiazem HCl 125 mg/Dextrose 125 ml @ 0 mls/hr CONT PRN IV SEE I/O RECORD Last administered on 10/21/16 23:03; Start 10/21/16 at 04:15; Stop 10/22/16 at 09: 44; Status DC Linezolid 300 ml @ 300 mls/hr Q12HR IV Last administered on 10/22/16 20:18; Start 10/21/16 at 09:00; Stop 10/23/16 at 07:26; Status DC Magnesium Sulfate/ Dextrose 50 ml @ 25 mls/hr PRN DAILY PRN IV for Mag < 1.7 on am labs Last administered on 10/22/16 15:15; Start 10/21/16 at 09:45 Albumin Human (Plasmanate) 500 ml @ 125 mls/hr 1X ONCE IV Last administered on 10/21/16 10:25; Start 10/21/16 at 09:45; Stop 10/21/16 at 13:44; Status DC Ondansetron HCl (Zofran) 4 mg PRN Q6HRS PRN IV Nausea; Start 10/21/16 at 10:00; Stop 10/22/16 at 09:59; Status DC Fentanyl Citrate (Fentanyl 2ml Vial) 25 mcg PRN Q5MIN PRN IV MILD PAIN; Start 10/21/16 at 10:00; Stop 10/22/16 at 09:59; Status DC Fentanyl Citrate (Fentanyl 2ml Vial) 50 mcg PRN Q5MIN PRN IV MODERATE PAIN; Start 10/21/16 at 10:00; Stop 10/22/16 at 09:59; Status DC Morphine Sulfate 1 mg 1 mg PRN Q10MIN PRN IV SEVERE PAIN; Start 10/21/16 at 10: 00; Stop 10/22/16 at 09:59; Status DC Lactated Ringer's (Iv Lactated Ringers) 1,000 ml @ 30 mls/hr Q24H IV ; Start at 09:50; Stop 10/21/16 at 21:49; Status DC Lidocaine HCl 2 ml 1X PRN PRN ID IV START; Start 10/21/16 at 10:00; Stop at 09:59; Status DC Hydromorphone HCl (Dilaudid) 0.5 mg PRN Q10MIN PRN IV SEV PAIN,Second choice; Start 10/21/16 at 10:00; Stop 10/22/16 at 09:59; Status DC Prochlorperazine Edisylate 5 mg 5 mg PACU PRN PRN IV NAUSEA; Start 10/21/16 at 10:00; Stop 10/22/16 at 09:59; Status DC Sodium Chloride (Iv Sodium Chloride 0.9% 500ml Bag) 500 ml @ 0 mls/hr PRN QID PRN IV UO< 30cc/hr over previous 6hrs; Start 10/21/16 at 10:15; Stop 10/21/16 at 17:27; Status DC Ondansetron HCl (Zofran) 4 mg PRN Q6HRS PRN IV Nausea; Start 10/21/16 at 11:30; Stop 10/22/16 at 11:29; Status DC Morphine Sulfate 1 mg 1 mg PRN Q10MIN PRN IV SEVERE PAIN; Start 10/21/16 at 11: 30; Stop 10/22/16 at 11:29; Status DC Lactated Ringer's (Iv Lactated Ringers) 1,000 ml @ 0 mls/hr Q0M IV ; Start 10/21 at 11:19; Stop 10/21/16 at 23:18; Status DC Lidocaine HCl 2 ml 1X PRN PRN ID IV START; Start 10/21/16 at 11:30; Stop at 11:29; Status DC Hydromorphone HCl (Dilaudid) 0.5 mg PRN Q10MIN PRN IV SEV PAIN,Second choice; Start 10/21/16 at 11:30; Stop 10/22/16 at 11:29; Status DC Prochlorperazine Edisylate (Compazine) 5 mg PACU PRN PRN IV NAUSEA; Start at 11:30; Stop 10/22/16 at 11:29; Status DC Atorvastatin Calcium (Lipitor) 20 mg QHS PO Last administered on 11/02/16t 21: 47; Start 10/21/16 at 21:00 Aspirin (Ecotrin) 81 mg DAILYWBKFT PO Last administered on 11/03/16 08:47; Start 10/21/16 at 12:00 Ondansetron HCl (Zofran) 4 mg PRN Q6HRS PRN IV Nausea; Start 10/22/16 at 07:00; Stop 10/23/16 at 06:59; Status DC Morphine Sulfate 1 mg 1 mg PRN Q10MIN PRN IV SEVERE PAIN; Start 10/22/16 at 07: 00; Stop 10/23/16 at 06:59; Status DC Lactated Ringer's (Iv Lactated Ringers) 1,000 ml @ 30 mls/hr Q24H IV ; Start at 07:00; Stop 10/22/16 at 15:07; Status DC Lidocaine HCl 2 ml 1X PRN PRN ID IV START; Start 10/22/16 at 07:00; Stop at 06:59; Status DC Hydromorphone HCl (Dilaudid) 0.5 mg PRN Q10MIN PRN IV SEVERE PAIN, Second choice; Start 10/22/16 at 07:00; Stop 10/23/16 at 06:59; Status DC Prochlorperazine Edisylate (Compazine) 5 mg PACU PRN PRN IV NAUSEA; Start at 07:00; Stop 10/23/16 at 06:59; Status DC Aspirin (Ecotrin) 81 mg DAILYWBKFT PO ; Start 10/22/16 at 08:00; Status UNV Insulin Detemir (Levemir) 20 units QHS SQ ; Start 10/21/16 at 21:00; Stop at 08:29; Status DC Ondansetron HCl 4 mg 4 mg PRN Q8HRS PRN PO NAUSEA; Start 10/22/16 at 14:00 Sodium Chloride 1,000 ml @ 175 mls/hr Q5H43M IV Last administered on 05:30; Start 10/21/16 at 18:00; Stop 10/23/16 at 07:20; Status DC Dextrose 1,000 ml @ 75 mls/hr [id number] IV Last administered on 10/22/16 04:54; Start 10/22/16 at 04:45; Stop 10/22/16 at 15:05; Status DC Bupivacaine HCl (Sensorcaine Mpf 0.5%) 30 ml STK-MED ONCE .ROUTE ; Start at 06:45; Stop 10/22/16 at 06:46; Status DC Lidocaine HCl 20 ml 20 ml STK-MED ONCE .ROUTE ; Start 10/22/16 at 06:46; Stop 10/22/16 at 06:47; Status DC Propofol (Diprivan) 20 ml @ As Directed STK-MED ONCE IV ; Start 10/22/16 at 08:02 ; Stop 10/22/16 at 08:03; Status DC Lidocaine HCl 100 mg STK-MED ONCE .ROUTE ; Start 10/22/16 at 08:02; Stop 10/22/16 at 08:03; Status DC Ondansetron HCl (Zofran) 4 mg STK-MED ONCE .ROUTE ; Start 10/22/16 at 08:31; Stop 10/22/16 at 08:32; Status DC Phenylephrine HCl 1 mg STK-MED ONCE IV ; Start 10/22/16 at 08:31; Stop 10/22/16 at 08:32; Status DC Dexamethasone Sodium Phosphate (Decadron) 20 mg STK-MED ONCE .ROUTE ; Start 10/22 at 08:48; Stop 10/22/16 at 08:49; Status DC Sevoflurane (Ultane) 30 ml STK-MED ONCE IH ; Start 10/22/16 at 08:48; Stop at 08:49; Status DC Diltiazem HCl (Cardizem) 30 mg Q6HRS PO Last administered on 10/27/16 11:27; Start 10/22/16 at 10:00; Stop 10/27/16 at 12:31; Status DC Metoprolol Tartrate 5 mg 5 mg PRN Q6HRS PRN IVP ELEVATED BP, SEE COMMENTS; Start 10/22/16 at 09:45 Albumin Human (Plasmanate) 500 ml @ 125 mls/hr 1X ONCE IV Last administered on 10/22/16 11:20; Start 10/22/16 at 09:45; Stop 10/22/16 at 13:44; Status DC Info (Anti-Coagulation Monitoring By Pharmacy) 1 each PRN DAILY PRN MC SEE COMMENTS; Start 10/22/16 at 15:15; Status UNV Heparin Sodium (Porcine) 5,000 unit Q12HR SQ Last administered on 10/28/16 11: 08; Start 10/22/16 at 21:00; Stop 10/28/16 at 16:02; Status DC Loperamide HCl (Imodium) 2 mg PRN Q15MIN PRN PO DIARRHEA Last administered on 21:48; Start 10/22/16 at 20:00 Insulin Human Regular (Novolin R Vial) 10 unit 1X ONCE IV Last administered on 10/22/16 23:52; Start 10/22/16 at 01:00; Stop 10/22/16 at 23:46; Status DC Insulin Detemir (Levemir) 10 units 1X ONCE SQ Last administered on 10/22/16 23 :53; Start 10/22/16 at 23:45; Stop 10/22/16 at 23:46; Status DC Insulin Human Regular 10 unit 10 unit 1X ONCE IV Last administered on 00:09; Start 10/23/16 at 00:00; Stop 10/23/16 at 00:01; Status DC Sodium Chloride 38.75 meq/Sodium Bicarbonate 75 meq/Sterile Water 1,084.6875 ml @ 150 mls/hr CONT PRN IV SEE I/O RECORD Last administered on 10/24/16 07:12; Start 10/23/16 at 07:30 Albumin Human (Albuminar) 100 ml @ 100 mls/hr TID IV Last administered on 10/24 21:23; Start 10/23/16 at 09:00; Stop 10/24/16 at 21:59; Status DC Heparin Sodium (Porcine) 10,000 unit STK-MED ONCE .ROUTE ; Start 10/23/16 at 07: 55; Stop 10/23/16 at 07:56; Status DC Lidocaine/Sodium Bicarbonate 20 ml 20 ml STK-MED ONCE IJ ; Start 10/23/16 at 07: 55; Stop 10/23/16 at 07:56; Status DC Heparin Sodium/ Sodium Chloride 500 ml @ As Directed STK-MED ONCE .ROUTE ; Start 10/23/16 at 07:55; Stop 10/23/16 at 07:56; Status DC Insulin Detemir (Levemir) 20 units [id number] SQ ; Start 10/23/16 at 08:00; Stop at 08:01; Status DC Insulin Aspart (Novolog) 10 units TIDAC SQ Last administered on 10/23/16 17:46 ; Start 10/23/16 at 11:30; Stop 10/24/16 at 11:12; Status DC Insulin Detemir (Levemir) 30 units DAILY08 SQ Last administered on 10/23/16 09 :55; Start 10/23/16 at 08:30; Stop 10/24/16 at 11:12; Status DC Lidocaine/Sodium Bicarbonate (Buffered Lidocaine 1%) 3 ml 1X ONCE IJ Last administered on 10/23/16 08:48; Start 10/23/16 at 08:30; Stop 10/23/16 at 08:31 ; Status DC Heparin Sodium/ Sodium Chloride 60 unit 1X ONCE IV Last administered on 08:48; Start 10/23/16 at 08:30; Stop 10/23/16 at 08:31; Status DC Heparin Sodium (Porcine) 2,500 unit 1X ONCE INT CAT Last administered on 08:48; Start 10/23/16 at 08:30; Stop 10/23/16 at 08:31; Status DC Albuterol/ Ipratropium (Duoneb) 3 ml RTQID NEB Last administered on 11/03/16 07:49; Start 10/24/16 at 12:00 Albuterol/ Ipratropium (Duoneb) 3 ml 1X ONCE NEB Last administered on 09:11; Start 10/24/16 at 09:00; Stop 10/24/16 at 09:01; Status DC Budesonide (Pulmicort) 0.5 mg RTBID NEB Last administered on 11/03/16 07:49; Start 10/24/16 at 10:00 Insulin Aspart (Novolog) 7 units TIDAC SQ Last administered on 11/03/16 08:14 ; Start 10/24/16 at 11:30 Insulin Detemir (Levemir) 20 units DAILY08 SQ Last administered on 11/01/16 09 :37; Start 10/25/16 at 08:00 Potassium Chloride 20 meq 20 meq 1X ONCE PO Last administered on 10/24/16 18: 28; Start 10/24/16 at 12:00; Stop 10/24/16 at 12:01; Status DC Sodium Chloride 1,000 ml @ 1,000 mls/hr Q1H PRN IV hypotension; Start 10/24/16 at 13:00; Stop 10/24/16 at 18:59; Status DC Albumin Human (Albuminar) 200 ml @ 200 mls/hr 1X PRN PRN IV Hypotension; Start 10/24/16 at 14:00; Stop 10/24/16 at 19:59; Status DC Acetaminophen (Tylenol) 500 mg 1X PRN PRN PO MILD PAIN / TEMP; Start 10/24/16 at 14:00; Stop 10/25/16 at 13:59; Status DC Diphenhydramine HCl (Benadryl) 25 mg 1X PRN PRN IV ITCHING; Start 10/24/16 at 14:00; Stop 10/25/16 at 13:59; Status DC Diphenhydramine HCl (Benadryl) 25 mg 1X PRN PRN IV ITCHING; Start 10/24/16 at 14:00; Stop 10/25/16 at 13:59; Status DC Info (PHARMACY MONITORING -- do not chart) 1 each PRN DAILY PRN MC SEE COMMENTS ; Start 10/24/16 at 14:00; Stop 10/25/16 at 13:16; Status DC Potassium Chloride 20 meq 20 meq 1X ONCE PO ; Start 10/24/16 at 18:30; Stop 07/02 at 18:31; Status DC Amino Acids/ Electrolytes (Clinimix E 2.75%-5% Solution) 1,000 ml @ 55 mls/hr [id number] IV Last administered on 10/27/16 00:52; Start 10/25/16 at 12:00; Stop 10/27/16 at 14:10; Status DC Hydralazine HCl 10 mg 10 mg PRN Q4HRS PRN IVP ELEVATED BP, SEE COMMENTS Last administered on 10/27/16 06:05; Start 10/25/16 at 12:45 Sodium Chloride 1,000 ml @ 1,000 mls/hr Q1H PRN IV hypotension; Start 10/25/16 at 13:07; Stop 10/25/16 at 19:06; Status DC Albumin Human (Albuminar) 200 ml @ 200 mls/hr 1X PRN PRN IV Hypotension Last administered on 10/25/16 14:30; Start 10/25/16 at 13:15; Stop 10/25/16 at 19:14 ; Status DC Acetaminophen (Tylenol) 500 mg 1X PRN PRN PO MILD PAIN / TEMP; Start 10/25/16 at 13:15; Stop 10/26/16 at 13:14; Status DC Diphenhydramine HCl (Benadryl) 25 mg 1X PRN PRN IV ITCHING; Start 10/25/16 at 13:15; Stop 10/26/16 at 13:14; Status DC Diphenhydramine HCl (Benadryl) 25 mg 1X PRN PRN IV ITCHING; Start 10/25/16 at 13:15; Stop 10/26/16 at 13:14; Status DC Info (PHARMACY MONITORING -- do not chart) 1 each PRN DAILY PRN MC SEE COMMENTS ; Start 10/25/16 at 13:15 Famotidine (Pepcid) 20 mg QHS IVP Last administered on 10/26/16 21:17; Start 10/26/16 at 21:00; Stop 10/27/16 at 11:20; Status DC Furosemide 40 mg 40 mg [id number] IVP Last administered on 11/01/16 09:26; Start at 12:00; Stop 11/01/16 at 11:07; Status DC Sodium Chloride 1,000 ml @ 1,000 mls/hr Q1H PRN IV hypotension; Start 10/26/16 at 13:55; Stop 10/26/16 at 19:54; Status DC Sodium Chloride (Iv Sodium Chloride 0.9% 1000ml Bag) 1,000 ml @ 400 mls/hr Q2H30M PRN IV PATENCY; Start 10/26/16 at 13:55; Stop 10/27/16 at 01:54; Status DC Info 1 each 1 each PRN DAILY PRN MC SEE COMMENTS; Start 10/26/16 at 14:00; Status UNV Meropenem/Sodium Chloride (Merrem/Iv Sodium Chloride 0.9% 50ml) 50 ml @ 100 mls /hr Q6HRS IV Last administered on 10/28/16 06:00; Start 10/27/16 at 12:00; Stop 10/28/16 at 09:22; Status DC Metoprolol Tartrate (Lopressor) 25 mg BID PO Last administered on 11/03/16 08: 48; Start 10/27/16 at 12:00 Famotidine (Pepcid) 20 mg QHS PO Last administered on 11/02/16 21:48; Start at 21:00 Diltiazem HCl (Cardizem 24hr Cd) 180 mg [id number] PO Last administered on 16:42; Start 10/27/16 at 17:00 Regadenoson (Lexiscan) 0.4 mg 1X ONCE IV Last administered on 10/28/16 09:18 ; Start 10/28/16 at 07:45; Stop 10/28/16 at 07:46; Status DC Lactobacillus Acidophilus 1 tab 1 tab TIDWMEALS PO Last administered on 08:47; Start 10/28/16 at 12:00 Meropenem 500 mg/ Sodium Chloride 50 ml @ 100 mls/hr Q12HR IV Last administered on 10/29/16 21:36; Start 10/28/16 at 21:00; Stop 10/30/16 at 09:05 ; Status DC Sodium Chloride 1,000 ml @ 1,000 mls/hr Q1H PRN IV hypotension; Start 10/28/16 at 09:34; Stop 10/28/16 at 15:33; Status DC Albumin Human (Albuminar) 200 ml @ 200 mls/hr 1X PRN PRN IV Hypotension; Start 10/28/16 at 09:45; Stop 10/28/16 at 15:44; Status DC Acetaminophen (Tylenol) 500 mg 1X PRN PRN PO MILD PAIN / TEMP; Start 10/28/16 at 09:45; Stop 10/28/16 at 16:02; Status DC Diphenhydramine HCl (Benadryl) 25 mg 1X PRN PRN IV ITCHING; Start 10/28/16 at 09:45; Stop 10/28/16 at 16:02; Status DC Diphenhydramine HCl (Benadryl) 25 mg 1X PRN PRN IV ITCHING; Start 10/28/16 at 09:45; Stop 10/28/16 at 16:02; Status DC Sodium Chloride (Normal Saline Flush) 10 ml 1X PRN PRN IV AP catheter pack; Start 10/28/16 at 09:45; Stop 10/28/16 at 16:02; Status DC Sodium Chloride (Normal Saline Flush) 10 ml 1X PRN PRN IV [employer] catheter pack; Start 10/28/16 at 09:45; Stop 10/28/16 at 16:02; Status DC Labetalol HCl 10 mg 10 mg PRN Q1HR PRN IVP SBP > 180; Start 10/28/16 at 09:45; Stop 10/28/16 at 16:02; Status DC Sodium Chloride (Iv Sodium Chloride 0.9% 1000ml Bag) 1,000 ml @ 400 mls/hr Q2H30M PRN IV PATENCY; Start 10/28/16 at 09:34; Stop 10/28/16 at 21:33; Status DC Info 1 each 1 each PRN DAILY PRN MC SEE COMMENTS; Start 10/28/16 at 09:45; Status UNV Sodium Chloride (Iv Sodium Chloride 0.9% 1000ml Bag) 1,000 ml @ 1,000 mls/hr Q1H PRN IV hypotension; Start 10/28/16 at 12:47; Stop 10/28/16 at 18:46; Status UNV Diphenhydramine HCl (Benadryl) 25 mg 1X PRN PRN IV ITCHING; Start 10/28/16 at 13:00; Stop 10/29/16 at 12:59; Status UNV Diphenhydramine HCl (Benadryl) 25 mg 1X PRN PRN IV ITCHING; Start 10/28/16 at 13:00; Stop 10/29/16 at 12:59; Status UNV Sodium Chloride (Normal Saline Flush) 10 ml 1X PRN PRN IV AP catheter pack; Start 10/28/16 at 13:00; Stop 10/29/16 at 12:59; Status UNV Sodium Chloride 10 ml 10 ml 1X PRN PRN IV RUG CUTTER HELPER catheter pack; Start 10/28/16 at 13:00; Stop 10/29/16 at 12:59; Status UNV Sodium Chloride (Iv Sodium Chloride 0.9% 1000ml Bag) 1,000 ml @ 400 mls/hr Q2H30M PRN IV PATENCY; Start 10/28/16 at 12:47; Stop 10/29/16 at 00:46; Status UNV Info (PHARMACY MONITORING -- do not chart) 1 each PRN DAILY PRN MC SEE COMMENTS ; Start 10/28/16 at 13:00; Status UNV Apixaban 5 mg 5 mg BID PO Last administered on 11/03/16t 08:48; Start 10/28/16 at 21:00 Sodium Chloride 1,000 ml @ 1,000 mls/hr Q1H PRN IV hypotension; Start 10/30/16 at 08:30; Stop 10/30/16 at 15:00; Status DC Albumin Human 200 ml @ 200 mls/hr 1X PRN PRN IV Hypotension; Start 10/30/16 at 08:30; Stop 10/30/16 at 14:29; Status DC Sodium Chloride (Iv Sodium Chloride 0.9% 1000ml Bag) 1,000 ml @ 400 mls/hr Q2H30M PRN IV PATENCY; Start 10/30/16 at 08:21; Stop 10/30/16 at 16:00; Status DC Info 1 each 1 each PRN DAILY PRN MC SEE COMMENTS; Start 10/30/16 at 08:30; Status UNV Piperacillin Sod/ Tazobactam Sod/ Sodium Chloride (Zosyn/Iv Sodium Chloride 0.9 % 50ml) 50 ml @ 100 mls/hr Q6HRS IV Last administered on 11/03/16t 05:44; Start 10/30/16 at 12:00 Info (Anti-Coagulation Monitoring By Pharmacy) 1 each PRN DAILY PRN MC SEE COMMENTS Last administered on 11/02/16t 13:20; Start 10/30/16 at 12:45 Heparin Sodium (Porcine) 10,000 unit STK-MED ONCE .ROUTE ; Start 10/30/16 at 13: 21; Stop 10/30/16 at 13:22; Status DC Lidocaine/ Epinephrine 20 ml 20 ml STK-MED ONCE .ROUTE ; Start 10/30/16 at 13:21 ; Stop 10/30/16 at 13:22; Status DC Heparin Sodium/ Sodium Chloride 500 ml @ As Directed STK-MED ONCE .ROUTE ; Start 10/30/16 at 13:21; Stop 10/30/16 at 13:22; Status DC Midazolam HCl (Versed) 2 mg STK-MED ONCE .ROUTE ; Start 10/30/16 at 13:33; Stop 10/30/16 at 13:34; Status DC Fentanyl Citrate 100 mcg 100 mcg STK-MED ONCE .ROUTE ; Start 10/30/16 at 13:34; Stop 10/30/16 at 13:35; Status DC Cefazolin Sodium (Ancef 1gm Ivpb For Omni) 0 ml @ As Directed STK-MED ONCE IV ; Start 10/30/16 at 13:34; Stop 10/30/16 at 13:35; Status DC Heparin Sodium/ Sodium Chloride 1,000 unit 1X ONCE IART Last administered on 14:18; Start 10/30/16 at 14:00; Stop 10/30/16 at 14:12; Status DC Midazolam HCl (Versed) 2 mg 1X ONCE IV Last administered on 10/30/16 14:18; Start 10/30/16 at 14:00; Stop 10/30/16 at 14:12; Status DC Fentanyl Citrate (Fentanyl 2ml Vial) 100 mcg 1X ONCE IV Last administered on 14:19; Start 10/30/16 at 14:00; Stop 10/30/16 at 14:12; Status DC Lidocaine/ Epinephrine (Xylocaine 1%-Epi 1:100,000) 9 ml 1X ONCE IJ Last administered on 10/30/16 14:18; Start 10/30/16 at 14:00; Stop 10/30/16 at 14:12 ; Status DC Heparin Sodium (Porcine) 4,300 unit 1X ONCE INT CAT Last administered on 14:18; Start 10/30/16 at 14:00; Stop 10/30/16 at 14:12; Status DC Furosemide 40 mg 40 mg DAILY PO Last administered on 11/03/16 08:48; Start at 09:00 Sodium Chloride (Iv Sodium Chloride 0.9% 1000ml Bag) 1,000 ml @ 1,000 mls/hr Q1H PRN IV hypotension; Start 11/02/16 at 09:07; Stop 11/02/16 at 15:06; Status DC Sodium Chloride (Normal Saline Flush) 2.1 ml 1X PRN PRN IV AP catheter pack; Start 11/02/16 at 09:15; Stop 11/03/16 at 09:14; Status DC Sodium Chloride (Normal Saline Flush) 2.2 ml 1X PRN PRN IV [employer] catheter pack; Start 11/02/16 at 09:15; Stop 11/03/16 at 09:14; Status DC Info (PHARMACY MONITORING -- do not chart) 1 each PRN DAILY PRN MC SEE COMMENTS ; Start 11/02/16 at 09:15; Stop 11/02/16 at 14:41; Status DC Active Scripts Active Reported Zofran Odt (Ondansetron) 8 Mg Tab.rapdis 1 Tab PO Q8HRS Colace (Docusate Sodium) 100 Mg Capsule 1 Cap PO BID Hydrocodone-Apap 7.5-325 (Hydrocodone Bit/Acetaminophen) 1 Each Tablet 1 Tab PO Q3HRS PRN Glimepiride 4 Mg Tablet 1 Tab PO BID Glimepiride 2 Mg Tablet 1 Tab PO BID Levemir (Insulin Detemir) 100 Unit/1 Ml Vial 30 Unit SQ HS Vitals/I & O Vital Sign - Last 24 Hours 11/02/16 11/02/16 11/02/16 11/02/16 11:58 12:29 15:00 15:22 Temp 98.9 98.9 Pulse 135 98 Resp 18 B/P 107/60 106/55 Pulse Ox 97 O2 Delivery Nasal Cannula Nasal Cannula Nasal Cannula O2 Flow Rate 2.0 2.0 11/02/16 11/02/16 11/02/16 11/02/16 16:42 19:00 20:00 20:35 Temp 97.7 97.7 Pulse 98 85 Resp 18 B/P 106/55 120/52 Pulse Ox 94 98 O2 Delivery Nasal Cannula Nasal Cannula Nasal Cannula O2 Flow Rate 2.0 2.0 11/02/16 11/02/16 11/02/16 11/02/16 20:38 21:49 23:00 23:13 Temp 97.5 97.5 Pulse 83 76 Resp 18 B/P 115/54 136/64 Pulse Ox 98 94 98 O2 Delivery Nasal Cannula Nasal Cannula Nasal Cannula O2 Flow Rate 2.0 2.0 11/03/16 11/03/16 11/03/16 11/03/16 03:00 07:00 07:49 08:00 Temp 98.3 98.2 98.3 98.2 Pulse 67 86 Resp 17 18 B/P 108/57 136/68 Pulse Ox 89 92 97 O2 Delivery Nasal Cannula Nasal Cannula Nasal Cannula Nasal Cannula O2 Flow Rate 2.0 2.0 11/03/16 08:48 Pulse 86 B/P 136/68 Intake and Output 11/02/16 11/02/16 11/03/16 15:00 23:00 07:00 Intake Total 100 ml 200 ml 500 ml Balance 100 ml 200 ml 500 ml Problem List Problems Medical Problems: (1) Acute renal failure Status: Acute (2) Atrial fibrillation with RVR Status: Acute (3) Lactic acidosis Status: Acute (4) Severe sepsis Status: Acute (5) Uncontrolled diabetes mellitus Status: Acute Assessment Stable GI-sellers. Plan of Care: Continue current Tx, Mgmt PO SCHOFIELD MD Nov 03, 2016 10:31
--- NOTE | 2016-11-03 10:44 | PDOC ---
PULMONARY PROGRESS NOTES Subjective PT FEELS BETTER LESS SOA Comments Vitals Vital Signs Date Time Temp Pulse Resp B/P Pulse Ox O2 Delivery O2 Flow Rate FiO2 11/03/16 08:48 86 136/68 11/03/16 08:00 Nasal Cannula 2.0 11/03/16 07:49 97 11/03/16 07:00 98.2 18 98.2 General: Alert Lungs: Clear Cardiovascular: S1, S2 Abdomen: Soft, Non-tender Neuro Exam: Alert, Oriented Extremities: Other (1+edema) Skin: Warm Labs Laboratory Tests Test 11/01/16 11:27 11/01/16 16:57 11/01/16 20:36 11/02/16 04:50 Glucose (Fingerstick) 163mg/dL (70-99) 141mg/dL (70-99) 111mg/dL (70-99) White Blood Count 9.0x10^3/uL (4.0-11.0) Red Blood Count 2.99x10^6/uL (4.30-5.70) Hemoglobin 8.4g/dL (13.0-17.5) Hematocrit 25.2% (39.0-53.0) Mean Corpuscular Volume 84fL (79-100) Mean Corpuscular Hemoglobin 28pg (25-35) Mean Corpuscular Hemoglobin Concent 33g/dL (31-37) Red Cell Distribution Width 15.2% (11.5-14.5) Platelet Count 166x10^3/uL (140-400) Neutrophils (%) (Auto) 77% (31-73) Lymphocytes (%) (Auto) 13% (24-48) Monocytes (%) (Auto) 8% (0-9) Eosinophils (%) (Auto) 2% (0-3) Basophils (%) (Auto) 1% (0-3) Neutrophils # (Auto) 7.0x10^3uL (1.8-7.7) Lymphocytes # (Auto) 1.1x10^3/uL (1.0-4.8) Monocytes # (Auto) 0.7x10^3/uL (0.0-1.1) Eosinophils # (Auto) 0.1x10^3/uL (0.0-0.7) Basophils # (Auto) 0.1x10^3/uL (0.0-0.2) Sodium Level 144mmol/L (136-145) Potassium Level 5.4mmol/L (3.5-5.1) Chloride Level 107mmol/L (98-107) Carbon Dioxide Level 27mmol/L (21-32) Anion Gap 10 (6-14) Blood Urea Nitrogen 64mg/dL (8-26) Creatinine 4.2mg/dL (0.7-1.3) Estimated GFR (Cockcroft-Gault) 14.1 Glucose Level 91mg/dL (70-99) Calcium Level 8.3mg/dL (8.5-10.1) Test 11/02/16 07:41 11/02/16 12:06 11/02/16 16:38 11/02/16 21:36 Glucose (Fingerstick) 87mg/dL (70-99) 158mg/dL (70-99) 313mg/dL (70-99) 178mg/dL (70-99) Test 11/03/16 03:52 11/03/16 07:24 White Blood Count 5.8x10^3/uL (4.0-11.0) Red Blood Count 2.64x10^6/uL (4.30-5.70) Hemoglobin 7.5g/dL (13.0-17.5) Hematocrit 22.9% (39.0-53.0) Mean Corpuscular Volume 87fL (79-100) Mean Corpuscular Hemoglobin 28pg (25-35) Mean Corpuscular Hemoglobin Concent 33g/dL (31-37) Red Cell Distribution Width 15.5% (11.5-14.5) Platelet Count 136x10^3/uL (140-400) Neutrophils (%) (Auto) 69% (31-73) Lymphocytes (%) (Auto) 17% (24-48) Monocytes (%) (Auto) 11% (0-9) Eosinophils (%) (Auto) 2% (0-3) Basophils (%) (Auto) 1% (0-3) Neutrophils # (Auto) 4.1x10^3uL (1.8-7.7) Lymphocytes # (Auto) 1.0x10^3/uL (1.0-4.8) Monocytes # (Auto) 0.6x10^3/uL (0.0-1.1) Eosinophils # (Auto) 0.1x10^3/uL (0.0-0.7) Basophils # (Auto) 0.1x10^3/uL (0.0-0.2) Glucose (Fingerstick) 175mg/dL (70-99) Laboratory Tests Test 11/02/16 12:06 11/02/16 16:38 11/02/16 21:36 11/03/16 03:52 Glucose (Fingerstick) 158mg/dL (70-99) 313mg/dL (70-99) 178mg/dL (70-99) White Blood Count 5.8x10^3/uL (4.0-11.0) Red Blood Count 2.64x10^6/uL (4.30-5.70) Hemoglobin 7.5g/dL (13.0-17.5) Hematocrit 22.9% (39.0-53.0) Mean Corpuscular Volume 87fL (79-100) Mean Corpuscular Hemoglobin 28pg (25-35) Mean Corpuscular Hemoglobin Concent 33g/dL (31-37) Red Cell Distribution Width 15.5% (11.5-14.5) Platelet Count 136x10^3/uL (140-400) Neutrophils (%) (Auto) 69% (31-73) Lymphocytes (%) (Auto) 17% (24-48) Monocytes (%) (Auto) 11% (0-9) Eosinophils (%) (Auto) 2% (0-3) Basophils (%) (Auto) 1% (0-3) Neutrophils # (Auto) 4.1x10^3uL (1.8-7.7) Lymphocytes # (Auto) 1.0x10^3/uL (1.0-4.8) Monocytes # (Auto) 0.6x10^3/uL (0.0-1.1) Eosinophils # (Auto) 0.1x10^3/uL (0.0-0.7) Basophils # (Auto) 0.1x10^3/uL (0.0-0.2) Test 11/03/16 07:24 Glucose (Fingerstick) 175mg/dL (70-99) Medications Active Scripts Medications Dose Route/Sig Days Date Category Zofran Odt (Ondansetron) 8 Mg Tab.rapdis 1 Tab PO Q8HRS 09/30/16 Reported Colace (Docusate Sodium) 100 Mg Capsule 1 Cap PO BID 09/30/16 Reported Hydrocodone-Apap 7.5-325 (Hydrocodone Bit/Acetaminophen) 1 Each Tablet 1 Tab PO Q3HRS PRN 09/30/16 Reported Glimepiride 4 Mg Tablet 1 Tab PO BID 09/29/16 Reported Glimepiride 2 Mg Tablet 1 Tab PO BID 09/29/16 Reported Levemir (Insulin Detemir) 100 Unit/1 Ml Vial 30 Unit SQ HS 06/29/14 Reported Comments cxr reviewed improved Impression . 1. Acute hypoxic respiratory failure sec to heart failure, 2. Clinically, less likely pneumonia, possible lung injury 3. Underlying chronic obstructive pulmonary disease. 4. Abnormal chest x-ray with diffuse interstitial infiltrates, more compatible with pulmonary edema 5. Acute kidney injury on chronic kidney disease. s/p emergent dialysis. 6. Hypoglycemia, now being corrected. 7. Normal ejection fraction on recent echo. Plan . resp status is STATUS, D/W CASE MANAGEMENT POSSIBLE D/C TODAY PT FEELS BETTER HD 02 MANUELITO MUÑOZ MD Nov 03, 2016 10:43
--- NOTE | 2016-11-03 11:24 | PDOC ---
SUBJECTIVE ROS RHETT/ ATN Doing Better overall CVS: no Orthopnea, no CP RESP: no SOB, no LOZANO GI: no Nausea, no Vomiting : no Dysuria, no Urgency OBJECTIVE Vital Signs Vital Signs Date Time Temp Pulse Resp B/P Pulse Ox O2 Delivery O2 Flow Rate FiO2 11/03/16 11:03 93 Nasal Cannula 1.0 11/03/16 11:00 97.8 88 17 124/59 97.8 I & 0 Intake and Output 11/03/16 07:00 Intake Total 800 ml Balance 800 ml Intake Oral 500 ml IV Total 300 ml # Voids 2 # Bowel Movements 2 PHYSICAL EXAM Physical Exam General Appearance: Awake Alert Oriented x 3 In no Distress Eyes: VIsion Unchanged Conjunctiva Normal EN: No EN Drainage Mucous Memb. moist; Neck: no JVD no JVP Supple no Thyromegaly CVS: S1 S2 no Murmur No Gallop No Rub +1 Edema on the left Resp: no Rales no Rhonchi no Acc. Muscle use GI: BS +ve NO Bruit Non Tender Non Distended : no CVA tenderness; no Suprapubic Tenderness Assessment & Plan ARF: ATN Current FLuid and E-lyte status does not necessitate emergent need for Dialysis. Will re-evaluate for Dialysis in am if solute clearance does not improve. HD Cath to be placed Underlying CKD III cannot be ruled out matthew in setting of longstanding poorly controlled DM Poorly controlled DM - defer to Primary team ^K YEst - anticiapte improved after HD yest. recehck Labs in am Hypoalbuminemia - suspect due to Ch infection. min Proteinuria by ratio Proteinuria by ratio - reval once infection is better. Cannot R/o infection related Gn OR underlying DM Nephropahty, ARB if needed Discussed Plan of Care and prognosis etc. at length with pt COMMENT/RELEVANT DATA Meds Current Medications Medications (Trade) Dose Ordered Sig/Salena Start Time Stop Time Status Last Admin Dose Admin Acetaminophen (Tylenol) 500 mg 1X PRN PRN 10/28/16 09:45 10/28/16 16:02 DC Acetaminophen/ Hydrocodone Bitart (Lortab 7.5/325) 1 tab PRN Q3HRS PRN 10/20/16 15:15 10/26/16 15:27 1 TAB Albumin Human (Albuminar) 200 ml @ 200 mls/hr 1X PRN PRN 10/30/16 08:30 10/30/16 14:29 DC Albumin Human (Plasmanate) 500 ml @ 125 mls/hr 1X ONCE 10/22/16 09:45 10/22/16 13:44 DC 10/22/16 11:20 125 MLS/HR Albuterol/ Ipratropium (Duoneb) 3 ml 1X ONCE 10/24/16 09:00 10/24/16 09:01 DC 10/24/16 09:11 3 ML Amino Acids/ Electrolytes (Clinimix E 2.75%-5% Solution) 1,000 ml @ 55 mls/hr [id number] 10/25/16 12:00 10/27/16 14:10 DC 10/27/16 00:52 55 MLS/HR Apixaban 5 mg 5 mg BID 10/28/16 21:00 11/03/16 08:48 5 MG Aspirin (Ecotrin) 81 mg [id number] 10/22/16 08:00 UNV Atorvastatin Calcium (Lipitor) 20 mg QHS 10/21/16 21:00 11/02/16 21:47 20 MG Budesonide (Pulmicort) 0.5 mg RTBID 10/24/16 10:00 11/03/16 07:49 0.5 MG Bupivacaine HCl (Sensorcaine Mpf 0.5%) 30 ml STK-MED ONCE 10/22/16 06:45 10/22/16 06:46 DC Cefazolin Sodium (Ancef 1gm Ivpb For Omni) 0 ml @ As Directed STK-MED ONCE 10/30/16 13:34 10/30/16 13:35 DC Dexamethasone Sodium Phosphate (Decadron) 20 mg STK-MED ONCE 10/22/16 08:48 10/22/16 08:49 DC Dextrose 1,000 ml @ 75 mls/hr [id number] 10/22/16 04:45 10/22/16 15:05 DC 10/22/16 04:54 75 MLS/HR Digoxin (Lanoxin) 250 mcg 1X ONCE 10/21/16 02:00 10/21/16 02:01 DC 10/21/16 01:48 250 MCG Digoxin 250 mcg 250 mcg 1X ONCE 10/21/16 04:15 10/21/16 04:16 DC 10/21/16 04:12 250 MCG Diltiazem HCl (Cardizem 24hr Cd) 180 mg [id number] 10/27/16 17:00 11/02/16 16:42 180 MG Diltiazem HCl (Cardizem) 30 mg Q6HRS 10/22/16 10:00 10/27/16 12:31 DC 10/27/16 11:27 30 MG Diltiazem HCl 125 mg/Dextrose 125 ml @ 0 mls/hr CONT PRN 10/21/16 04:15 10/22/16 09:44 DC 10/21/16 23:03 5 MLS/HR Diltiazem HCl 20 mg 20 mg 1X ONCE 10/20/16 13:30 10/20/16 13:31 DC 10/20/16 13:35 20 MG Diltiazem HCl/ Dextrose (Cardizem) 125 ml @ 10 mls/hr 1X ONCE 10/20/16 13:30 10/20/16 19:37 DC 10/20/16 13:49 10 MLS/HR Diphenhydramine HCl (Benadryl) 25 mg 1X PRN PRN 10/28/16 13:00 10/29/16 12:59 UNV Docusate Sodium (Colace) 100 mg BID 10/20/16 21:00 10/26/16 21:17 100 MG Dopamine HCl/ Dextrose 250 ml @ 13.183 mls/ hr CONT PRN 10/20/16 19:30 10/28/16 15:26 DC 10/20/16 20:38 7.91 MLS/HR Famotidine (Pepcid) 20 mg QHS 10/27/16 21:00 11/02/16 21:48 20 MG Fentanyl Citrate (Fentanyl 2ml Vial) 100 mcg 1X ONCE 10/30/16 14:00 10/30/16 14:12 DC 10/30/16 14:19 100 MCG Fentanyl Citrate 100 mcg 100 mcg STK-MED ONCE 10/30/16 13:34 10/30/16 13:35 DC Furosemide (Lasix) 40 mg [id number] 10/26/16 12:00 11/01/16 11:07 DC 11/01/16 09:26 40 MG Furosemide 40 mg 40 mg DAILY 11/02/16 09:00 11/03/16 08:48 40 MG Glimepiride (Amaryl) 4 mg [id number] 10/20/16 17:00 10/21/16 14:52 DC 10/20/16 17:32 4 MG Heparin Sodium (Porcine) 4,300 unit 1X ONCE 10/30/16 14:00 10/30/16 14:12 DC 10/30/16 14:18 4,300 UNIT Heparin Sodium/ Sodium Chloride 1,000 unit 1X ONCE 10/30/16 14:00 10/30/16 14:12 DC 10/30/16 14:18 1,000 UNIT Hydralazine HCl (Apresoline) 10 mg PRN Q4HRS PRN 10/25/16 12:45 10/27/16 06:05 10 MG Hydromorphone HCl (Dilaudid) 0.5 mg PRN Q10MIN PRN 10/22/16 07:00 10/23/16 06:59 DC Info (Anti-Coagulation Monitoring By Pharmacy) 1 each PRN DAILY PRN 10/30/16 12:45 11/02/16 13:20 1 EACH Info (PHARMACY MONITORING -- do not chart) 1 each PRN DAILY PRN 11/02/16 09:15 11/02/16 14:41 DC Info 1 each 1 each PRN DAILY PRN 10/30/16 08:30 UNV Insulin Aspart (Novolog) 7 units TIDAC 10/24/16 11:30 11/03/16 08:14 7 UNITS Insulin Detemir (Levemir) 20 units DAILY08 11/04/16 08:00 Insulin Detemir 30 units 30 units QHS 10/20/16 21:00 10/21/16 14:52 DC 10/20/16 21:03 30 UNITS Insulin Human Regular (Novolin R Vial) 10 unit 1X ONCE 10/22/16 01:00 10/22/16 23:46 DC 10/22/16 23:52 10 UNIT Insulin Human Regular 10 unit 10 unit 1X ONCE 10/23/16 00:00 10/23/16 00:01 DC 10/23/16 00:09 10 UNIT Labetalol HCl (Normodyne) 10 mg PRN Q1HR PRN 10/28/16 09:45 10/28/16 16:02 DC Lactated Ringer's (Iv Lactated Ringers) 1,000 ml @ 30 mls/hr Q24H 10/22/16 07:00 10/22/16 15:07 DC Lactobacillus Acidophilus 1 tab 1 tab [id number] 10/28/16 12:00 11/03/16 08:47 1 TAB Lidocaine HCl 100 mg STK-MED ONCE 10/22/16 08:02 10/22/16 08:03 DC Lidocaine HCl 20 ml 20 ml STK-MED ONCE 10/22/16 06:46 10/22/16 06:47 DC Lidocaine/ Epinephrine (Xylocaine 1%-Epi 1:100,000) 9 ml 1X ONCE 10/30/16 14:00 10/30/16 14:12 DC 10/30/16 14:18 9 ML Lidocaine/Sodium Bicarbonate (Buffered Lidocaine 1%) 3 ml 1X ONCE 10/23/16 08:30 10/23/16 08:31 DC 10/23/16 08:48 3 ML Linezolid 300 ml @ 300 mls/hr Q12HR 10/21/16 09:00 10/23/16 07:26 DC 10/22/16 20:18 300 MLS/HR Loperamide HCl (Imodium) 2 mg PRN Q15MIN PRN 10/22/16 20:00 11/02/16 21:48 2 MG Magnesium Sulfate/ Dextrose (Magnesium Sulfate PREMIX 2GM) 50 ml @ 25 mls/hr PRN DAILY PRN 10/21/16 09:45 10/22/16 15:15 25 MLS/HR Meropenem/Sodium Chloride (Merrem/Iv Sodium Chloride 0.9% 50ml) 50 ml @ 100 mls/hr Q12HR 10/28/16 21:00 10/30/16 09:05 DC 10/29/16 21:36 100 MLS/HR Metoprolol Tartrate (Lopressor) 25 mg BID 10/27/16 12:00 11/03/16 08:48 25 MG Metoprolol Tartrate 5 mg 5 mg PRN Q6HRS PRN 10/22/16 09:45 Midazolam HCl (Versed) 2 mg 1X ONCE 10/30/16 14:00 10/30/16 14:12 DC 10/30/16 14:18 2 MG Morphine Sulfate 1 mg 1 mg PRN Q10MIN PRN 10/22/16 07:00 10/23/16 06:59 DC Ondansetron HCl (Zofran) 4 mg STK-MED ONCE 10/22/16 08:31 10/22/16 08:32 DC Ondansetron HCl 4 mg 4 mg PRN Q8HRS PRN 10/22/16 14:00 Phenylephrine HCl 1 mg STK-MED ONCE 10/22/16 08:31 10/22/16 08:32 DC Piperacillin Sod/ Tazobactam Sod 2.25 gm/Sodium Chloride 50 ml @ 100 mls/hr Q6HRS 10/21/16 00:00 10/27/16 07:43 DC 10/27/16 06:03 100 MLS/HR Piperacillin Sod/ Tazobactam Sod 1 each 1 each PRN DAILY PRN 10/20/16 14:45 10/21/16 07:49 DC Piperacillin Sod/ Tazobactam Sod/ Sodium Chloride (Zosyn/Iv Sodium Chloride 0.9% 50ml) 50 ml @ 100 mls/hr Q6HRS 10/30/16 12:00 11/03/16 05:44 100 MLS/HR Potassium Chloride 20 meq 20 meq 1X ONCE 10/24/16 18:30 10/24/16 18:31 DC Potassium Chloride (Klor-Con) 20 meq 1X ONCE 10/24/16 12:00 10/24/16 12:01 DC 10/24/16 18:28 20 MEQ Prochlorperazine Edisylate (Compazine) 5 mg PACU PRN PRN 10/22/16 07:00 10/23/16 06:59 DC Prochlorperazine Edisylate 5 mg 5 mg PACU PRN PRN 10/21/16 10:00 10/22/16 09:59 DC Propofol (Diprivan) 20 ml @ As Directed STK-MED ONCE 10/22/16 08:02 10/22/16 08:03 DC Regadenoson (Lexiscan) 0.4 mg 1X ONCE 10/28/16 07:45 10/28/16 07:46 DC 10/28/16 09:18 0.4 MG Sevoflurane (Ultane) 30 ml STK-MED ONCE 10/22/16 08:48 10/22/16 08:49 DC Sodium Chloride (Iv Sodium Chloride 0.9% 500ml Bag) 500 ml @ 0 mls/hr PRN QID PRN 10/21/16 10:15 10/21/16 17:27 DC Sodium Chloride (Iv Sodium Chloride 0.9% 1000ml Bag) 1,000 ml @ 1,000 mls/hr Q1H PRN 11/02/16 09:07 11/02/16 15:06 DC Sodium Chloride (Normal Saline Flush) 2.2 ml 1X PRN PRN 11/02/16 09:15 11/03/16 09:14 DC Sodium Chloride/ Sodium Bicarbonate/ Sterile Water (Sodium Chloride) 1,084.6875 ml @ 150 mls/hr CONT PRN 10/23/16 07:30 10/24/16 07:12 150 MLS/HR Vancomycin HCl (Vanco Per Pharmacy) 1 each PRN DAILY PRN 10/20/16 14:45 10/21/16 07:42 DC 10/20/16 16:49 1 EACH Vancomycin HCl 1 each 1 each 1X ONCE 10/22/16 15:30 10/22/16 15:31 Cancel Vancomycin HCl/ Sodium Chloride (Iv Sodium Chloride 0.9% 250ml) 250 ml @ 167 mls/hr Q24H 10/21/16 16:00 10/21/16 16:00 DC Vancomycin HCl/ Sodium Chloride (Iv Sodium Chloride 0.9% 500ml Bag) 500 ml @ 250 mls/hr 1X ONCE 10/20/16 15:00 10/20/16 16:59 DC 10/20/16 15:45 250 MLS/HR Lab Laboratory Tests Test 11/02/16 12:06 11/02/16 16:38 11/02/16 21:36 11/03/16 03:52 Glucose (Fingerstick) 158mg/dL (70-99) 313mg/dL (70-99) 178mg/dL (70-99) White Blood Count 5.8x10^3/uL (4.0-11.0) Red Blood Count 2.64x10^6/uL (4.30-5.70) Hemoglobin 7.5g/dL (13.0-17.5) Hematocrit 22.9% (39.0-53.0) Mean Corpuscular Volume 87fL (79-100) Mean Corpuscular Hemoglobin 28pg (25-35) Mean Corpuscular Hemoglobin Concent 33g/dL (31-37) Red Cell Distribution Width 15.5% (11.5-14.5) Platelet Count 136x10^3/uL (140-400) Neutrophils (%) (Auto) 69% (31-73) Lymphocytes (%) (Auto) 17% (24-48) Monocytes (%) (Auto) 11% (0-9) Eosinophils (%) (Auto) 2% (0-3) Basophils (%) (Auto) 1% (0-3) Neutrophils # (Auto) 4.1x10^3uL (1.8-7.7) Lymphocytes # (Auto) 1.0x10^3/uL (1.0-4.8) Monocytes # (Auto) 0.6x10^3/uL (0.0-1.1) Eosinophils # (Auto) 0.1x10^3/uL (0.0-0.7) Basophils # (Auto) 0.1x10^3/uL (0.0-0.2) Test 11/03/16 07:24 11/03/16 10:16 Glucose (Fingerstick) 175mg/dL (70-99) 172mg/dL (70-99) ANJELICA DE LEON MD Nov 03, 2016 11:23
[2016-11-03] MEDS ORDERED: MAGNESIUM SULFATE 2GM 50 ML IV PRN (11:30)
[2016-11-03] MEDS ORDERED: FAMO20TA5 PO (11:41)
[2016-11-03] MEDS ORDERED: FURO-68 PO (11:41)
[2016-11-03] MEDS ORDERED: INSU100I27 SQ (11:41)
[2016-11-03] MEDS ORDERED: ACETAMINOPHEN 325 MG TABLET. PO PRN (12:30)
[2016-11-03] MEDS ORDERED: ACETAMINOPHEN 325 MG TABLET. PO ONE (12:30)
--- NOTE | 2016-11-03 14:20 | PDOC3 ---
Discharge Summary Visit Information Date of Admission: Oct 20, 2016 Date of Discharge: Nov 03, 2016 Final Diagnosis - CHF, diastolic acute with hypoxia resp failure - RHETT, improving - suspected underlying CKD - Hypokalemia: improved - L foot osteomyelitis; s/p I&D on 10/[address] Luis. - DM2 - Afib - HTN, well controlled - COPD - acute diarrhea, resolved - metab acidosis, resolved - thrombocytopenia, chronic, stable; 80s-90s. suspect ITP - anemia, normocytic, normochromic has a history of tobacco use, Problems Medical Problems: (1) Acute renal failure Status: Acute (2) Atrial fibrillation with RVR Status: Acute (3) Lactic acidosis Status: Acute (4) Severe sepsis Status: Acute (5) Uncontrolled diabetes mellitus Status: Acute Brief Hospital Course Allergies Allergies Coded Allergies Type Severity Reaction Last Updated Verified Tetanus Vaccines and Toxoid Allergy Intermediate 10/20/16 Yes Vital Signs Vital Signs Date Time Temp Pulse Resp B/P Pulse Ox O2 Delivery O2 Flow Rate FiO2 11/03/16 11:03 93 Nasal Cannula 1.0 11/03/16 11:00 97.8 88 17 124/59 97.8 Lab Results Laboratory Tests Test 11/01/16 16:57 11/01/16 20:36 11/02/16 04:50 11/02/16 07:41 Glucose (Fingerstick) 141mg/dL (70-99) 111mg/dL (70-99) 87mg/dL (70-99) White Blood Count 9.0x10^3/uL (4.0-11.0) Red Blood Count 2.99x10^6/uL (4.30-5.70) Hemoglobin 8.4g/dL (13.0-17.5) Hematocrit 25.2% (39.0-53.0) Mean Corpuscular Volume 84fL (79-100) Mean Corpuscular Hemoglobin 28pg (25-35) Mean Corpuscular Hemoglobin Concent 33g/dL (31-37) Red Cell Distribution Width 15.2% (11.5-14.5) Platelet Count 166x10^3/uL (140-400) Neutrophils (%) (Auto) 77% (31-73) Lymphocytes (%) (Auto) 13% (24-48) Monocytes (%) (Auto) 8% (0-9) Eosinophils (%) (Auto) 2% (0-3) Basophils (%) (Auto) 1% (0-3) Neutrophils # (Auto) 7.0x10^3uL (1.8-7.7) Lymphocytes # (Auto) 1.1x10^3/uL (1.0-4.8) Monocytes # (Auto) 0.7x10^3/uL (0.0-1.1) Eosinophils # (Auto) 0.1x10^3/uL (0.0-0.7) Basophils # (Auto) 0.1x10^3/uL (0.0-0.2) Sodium Level 144mmol/L (136-145) Potassium Level 5.4mmol/L (3.5-5.1) Chloride Level 107mmol/L (98-107) Carbon Dioxide Level 27mmol/L (21-32) Anion Gap 10 (6-14) Blood Urea Nitrogen 64mg/dL (8-26) Creatinine 4.2mg/dL (0.7-1.3) Estimated GFR (Cockcroft-Gault) 14.1 Glucose Level 91mg/dL (70-99) Calcium Level 8.3mg/dL (8.5-10.1) Test 11/02/16 12:06 11/02/16 16:38 11/02/16 21:36 11/03/16 03:52 Glucose (Fingerstick) 158mg/dL (70-99) 313mg/dL (70-99) 178mg/dL (70-99) White Blood Count 5.8x10^3/uL (4.0-11.0) Red Blood Count 2.64x10^6/uL (4.30-5.70) Hemoglobin 7.5g/dL (13.0-17.5) Hematocrit 22.9% (39.0-53.0) Mean Corpuscular Volume 87fL (79-100) Mean Corpuscular Hemoglobin 28pg (25-35) Mean Corpuscular Hemoglobin Concent 33g/dL (31-37) Red Cell Distribution Width 15.5% (11.5-14.5) Platelet Count 136x10^3/uL (140-400) Neutrophils (%) (Auto) 69% (31-73) Lymphocytes (%) (Auto) 17% (24-48) Monocytes (%) (Auto) 11% (0-9) Eosinophils (%) (Auto) 2% (0-3) Basophils (%) (Auto) 1% (0-3) Neutrophils # (Auto) 4.1x10^3uL (1.8-7.7) Lymphocytes # (Auto) 1.0x10^3/uL (1.0-4.8) Monocytes # (Auto) 0.6x10^3/uL (0.0-1.1) Eosinophils # (Auto) 0.1x10^3/uL (0.0-0.7) Basophils # (Auto) 0.1x10^3/uL (0.0-0.2) Test 11/03/16 07:24 11/03/16 10:16 Glucose (Fingerstick) 175mg/dL (70-99) 172mg/dL (70-99) Laboratory Tests Test 11/02/16 16:38 11/02/16 21:36 11/03/16 03:52 11/03/16 07:24 Glucose (Fingerstick) 313mg/dL (70-99) 178mg/dL (70-99) 175mg/dL (70-99) White Blood Count 5.8x10^3/uL (4.0-11.0) Red Blood Count 2.64x10^6/uL (4.30-5.70) Hemoglobin 7.5g/dL (13.0-17.5) Hematocrit 22.9% (39.0-53.0) Mean Corpuscular Volume 87fL (79-100) Mean Corpuscular Hemoglobin 28pg (25-35) Mean Corpuscular Hemoglobin Concent 33g/dL (31-37) Red Cell Distribution Width 15.5% (11.5-14.5) Platelet Count 136x10^3/uL (140-400) Neutrophils (%) (Auto) 69% (31-73) Lymphocytes (%) (Auto) 17% (24-48) Monocytes (%) (Auto) 11% (0-9) Eosinophils (%) (Auto) 2% (0-3) Basophils (%) (Auto) 1% (0-3) Neutrophils # (Auto) 4.1x10^3uL (1.8-7.7) Lymphocytes # (Auto) 1.0x10^3/uL (1.0-4.8) Monocytes # (Auto) 0.6x10^3/uL (0.0-1.1) Eosinophils # (Auto) 0.1x10^3/uL (0.0-0.7) Basophils # (Auto) 0.1x10^3/uL (0.0-0.2) Test 11/03/16 10:16 Glucose (Fingerstick) 172mg/dL (70-99) Brief Hospital Course Mr. Charlton is a 71 old male, who admit w/ progressive weakness. He was also noted to have lactic acid of 5.9 with a normal WBC, new wound on the left foot. THen progressive dyspnea and hypoxia. He initially was on Ventimask and then 100% nonrebreather mask with saturations in the high 90s. w. audible wheezes and coarse breath sounds. diffuse interstitial infiltrates on XRAY dialyzed immediately. His BUN is 59 and creatinine 3.6. hypoglycemic Discharge Information Condition at Discharge: Improved Follow Up: Weeks Disposition/Orders: D/C to Home Scheduled Docusate Sodium (Colace) 1 CAP PO BID (Reported) Famotidine (Famotidine) 20 MG PO HS Furosemide (Lasix) 40 MG PO BID Insulin Detemir (Levemir Flextouch) 20 UNITS SQ DAILY08 Ondansetron (Zofran Odt) 1 TAB PO Q8HRS (Reported) Scheduled PRN Hydrocodone Bit/Acetaminophen (Hydrocodone-Apap 7.5-325 ) 1 TAB PO Q3HRS PRN PRN PAIN (Reported) Discontinued Medications Glimepiride (Glimepiride) 1 TAB PO BID (Reported) Glimepiride (Glimepiride) 1 TAB PO BID (Reported) Insulin Detemir (Levemir) 30 UNIT SQ HS (Reported) BEKA CARRION MD Nov 03, 2016 14:20
[2016-11-03] MEDS: DILTIAZEM HCL 180 MG CAP.ER.24H PO SCH (17:18)
[2016-11-03] MEDS: FAMOTIDINE 20 MG TABLET. PO SCH (21:44)
[2016-11-03] MEDS: ATORVASTATIN CALCIUM 20 MG TABLET PO SCH (21:44)
[2016-11-04] MEDS: PIPERACILLIN/TAZOBACTAM 2.25 GM in IV NORMAL SALINE 50ML 50 ML IV SCH ×3 (00:47→12:00)
[2016-11-04 02:51] VITALS: BP 115/59
[2016-11-04 05:24] LABS: BASO # 0.1 x10^3/uL (0.0-0.2); BASO % 2 % (0-3); EOS % 2 % (0-3); HEMATOCRIT 26.3 % (39.0-53.0); HEMOGLOBIN 8.7 g/dL (13.0-17.5); LYMPH # 1.1 x10^3/uL (1.0-4.8); LYMPH % 18 % (24-48); MEAN CORPUSCULAR HEMOGLOBIN 29 pg (25-35); MEAN CORPUSCULAR HGB CONC 33 g/dL (31-37); MEAN CORPUSCULAR VOLUME 86 fL (79-100); MONO % 10 % (0-9); NEUT % 67 % (31-73); PLATELET COUNT 138 x10^3/uL (140-400); RED BLOOD COUNT 3.05 x10^6/uL (4.30-5.70); RED CELL DISTRIBUTION WIDTH 14.6 % (11.5-14.5)
[2016-11-04 05:59] LABS: ALBUMIN 1.8 g/dL (3.4-5.0); CALCIUM 8.3 mg/dL (8.5-10.1); GFR 14.9; PHOSPHORUS 6.6 mg/dL (2.6-4.7); POTASSIUM 4.9 mmol/L (3.5-5.1)
[2016-11-04 07:00] VITALS: BP 150/69
[2016-11-04] MEDS: BUDESONIDE 0.5 MG/2 ML NEBU NEB SCH (07:18)
[2016-11-04] MEDS: IPRATRPIUM/ALBUTEROL 0.5/2.5MG 3 ML NEBU. NEB SCH ×2 (07:18→11:29)
[2016-11-04] MEDS ORDERED: INSULIN DETEMIR 300 UNITS/3 ML INSULN.PEN. SQ SCH ×3 (08:00)
[2016-11-04] MEDS: METOPROLOL TART IMMED RELEASE 25 MG TABLET PO SCH (09:00)
[2016-11-04] MEDS: DOCUSATE SODIUM 100 MG CAPSULE PO SCH (09:00)
[2016-11-04] MEDS: FUROSEMIDE 40 MG TABLET PO SCH (09:00)
[2016-11-04] MEDS: ASPIRIN ENTERIC COATED 81 MG TABLET.DR. PO SCH (09:19)
[2016-11-04] MEDS: LACTOBACILLUS ACIDOPH & BULGAR 1 TABLET. PO SCH ×3 (09:19→17:00)
[2016-11-04] MEDS: APIXABAN 5 MG TABLET. PO SCH (09:20)
[2016-11-04] MEDS: INSULIN ASPART 300 UNITS/3 ML INSULN.PEN SQ SCH ×6 (09:28→17:00)
--- NOTE | 2016-11-04 09:43 | PDOC ---
Infectious Disease Note Subjective Subjective pt feeling good ROS ROS GEN: Denies fevers, chills, sweats HEENT: Denies blurred vision, sore throat CV: Denies chest pain RESP: Denies shortness of air, cough GI: Denies n/v/d NEURO: Denies confusion, dizziness MSK: Denies weakness, joint pain/swelling Vital Sign Vital Signs Vital Signs Date Time Temp Pulse Resp B/P Pulse Ox O2 Delivery O2 Flow Rate FiO2 11/04/16 07:20 94 Nasal Cannula 1.0 11/04/16 07:00 97.7 94 18 150/69 97.7 Physical Exam PHYSICAL EXAM GENERAL: NAD, Alert HEENT: PERRL, OC/OP NECK: Supple, no JVD, no LN LUNGS: Clear HEART: S1S2, no gallop, no murmur ABD: Soft, NT, no organomegaly, no rebound EXT: No edema, no cyanosis,,, left foot wound with bone palpable AEROPLANE PILOT: Alert, oriented x 3, no focal neurologic deficit SKIN: No rash IV: ok Labs Lab Laboratory Tests Test 11/03/16 10:16 11/03/16 16:58 11/03/16 20:46 11/04/16 05:00 Glucose (Fingerstick) 172mg/dL (70-99) 148mg/dL (70-99) 143mg/dL (70-99) White Blood Count 6.0x10^3/uL (4.0-11.0) Red Blood Count 3.05x10^6/uL (4.30-5.70) Hemoglobin 8.7g/dL (13.0-17.5) Hematocrit 26.3% (39.0-53.0) Mean Corpuscular Volume 86fL (79-100) Mean Corpuscular Hemoglobin 29pg (25-35) Mean Corpuscular Hemoglobin Concent 33g/dL (31-37) Red Cell Distribution Width 14.6% (11.5-14.5) Platelet Count 138x10^3/uL (140-400) Neutrophils (%) (Auto) 67% (31-73) Lymphocytes (%) (Auto) 18% (24-48) Monocytes (%) (Auto) 10% (0-9) Eosinophils (%) (Auto) 2% (0-3) Basophils (%) (Auto) 2% (0-3) Neutrophils # (Auto) 4.0x10^3uL (1.8-7.7) Lymphocytes # (Auto) 1.1x10^3/uL (1.0-4.8) Monocytes # (Auto) 0.6x10^3/uL (0.0-1.1) Eosinophils # (Auto) 0.1x10^3/uL (0.0-0.7) Basophils # (Auto) 0.1x10^3/uL (0.0-0.2) Sodium Level 144mmol/L (136-145) Potassium Level 4.9mmol/L (3.5-5.1) Chloride Level 106mmol/L (98-107) Carbon Dioxide Level 29mmol/L (21-32) Anion Gap 9 (6-14) Blood Urea Nitrogen 52mg/dL (8-26) Creatinine 4.0mg/dL (0.7-1.3) Estimated GFR (Cockcroft-Gault) 14.9 Glucose Level 176mg/dL (70-99) Calcium Level 8.3mg/dL (8.5-10.1) Phosphorus Level 6.6mg/dL (2.6-4.7) Magnesium Level 2.3mg/dL (1.8-2.4) Albumin 1.8g/dL (3.4-5.0) Micro BC + 4/4 G + cocci G A strep + Objective Assessment Group A strep bacteremia, 10/20 POA. repeat cults neg SOA - resolved CKD on HD Extensive left foot infection/osteo -s/p I and D necrotic tissue and bone, 10/[address] MSSA, Group A, Alcaligenes, Bacteroides (multiple nondominant GNR). Septic shock - resolved Lactic acidosis DM Loose stools, c. diff neg. 10/21 Plan Plan of Care iv invanz for 4 to 6 wks Local wound care Probiotics Supportive care d/c to SNF/select f/u with me in 2 wks JASVIR DE LEON MD Nov 04, 2016 09:43
--- NOTE | 2016-11-04 09:44 | PDOC ---
PULMONARY PROGRESS NOTES Subjective PT FEELS BETTER LESS SOA Comments Vitals Vital Signs Date Time Temp Pulse Resp B/P Pulse Ox O2 Delivery O2 Flow Rate FiO2 11/04/16 07:20 94 Nasal Cannula 1.0 11/04/16 07:00 97.7 94 18 150/69 97.7 General: Alert Lungs: Clear Cardiovascular: S1, S2 Abdomen: Soft, Non-tender Neuro Exam: Alert, Oriented Extremities: Other (1+edema) Skin: Warm Labs Laboratory Tests Test 11/02/16 12:06 11/02/16 16:38 11/02/16 21:36 11/03/16 03:52 Glucose (Fingerstick) 158mg/dL (70-99) 313mg/dL (70-99) 178mg/dL (70-99) White Blood Count 5.8x10^3/uL (4.0-11.0) Red Blood Count 2.64x10^6/uL (4.30-5.70) Hemoglobin 7.5g/dL (13.0-17.5) Hematocrit 22.9% (39.0-53.0) Mean Corpuscular Volume 87fL (79-100) Mean Corpuscular Hemoglobin 28pg (25-35) Mean Corpuscular Hemoglobin Concent 33g/dL (31-37) Red Cell Distribution Width 15.5% (11.5-14.5) Platelet Count 136x10^3/uL (140-400) Neutrophils (%) (Auto) 69% (31-73) Lymphocytes (%) (Auto) 17% (24-48) Monocytes (%) (Auto) 11% (0-9) Eosinophils (%) (Auto) 2% (0-3) Basophils (%) (Auto) 1% (0-3) Neutrophils # (Auto) 4.1x10^3uL (1.8-7.7) Lymphocytes # (Auto) 1.0x10^3/uL (1.0-4.8) Monocytes # (Auto) 0.6x10^3/uL (0.0-1.1) Eosinophils # (Auto) 0.1x10^3/uL (0.0-0.7) Basophils # (Auto) 0.1x10^3/uL (0.0-0.2) Test 11/03/16 07:24 11/03/16 10:16 11/03/16 16:58 11/03/16 20:46 Glucose (Fingerstick) 175mg/dL (70-99) 172mg/dL (70-99) 148mg/dL (70-99) 143mg/dL (70-99) Test 11/04/16 05:00 White Blood Count 6.0x10^3/uL (4.0-11.0) Red Blood Count 3.05x10^6/uL (4.30-5.70) Hemoglobin 8.7g/dL (13.0-17.5) Hematocrit 26.3% (39.0-53.0) Mean Corpuscular Volume 86fL (79-100) Mean Corpuscular Hemoglobin 29pg (25-35) Mean Corpuscular Hemoglobin Concent 33g/dL (31-37) Red Cell Distribution Width 14.6% (11.5-14.5) Platelet Count 138x10^3/uL (140-400) Neutrophils (%) (Auto) 67% (31-73) Lymphocytes (%) (Auto) 18% (24-48) Monocytes (%) (Auto) 10% (0-9) Eosinophils (%) (Auto) 2% (0-3) Basophils (%) (Auto) 2% (0-3) Neutrophils # (Auto) 4.0x10^3uL (1.8-7.7) Lymphocytes # (Auto) 1.1x10^3/uL (1.0-4.8) Monocytes # (Auto) 0.6x10^3/uL (0.0-1.1) Eosinophils # (Auto) 0.1x10^3/uL (0.0-0.7) Basophils # (Auto) 0.1x10^3/uL (0.0-0.2) Sodium Level 144mmol/L (136-145) Potassium Level 4.9mmol/L (3.5-5.1) Chloride Level 106mmol/L (98-107) Carbon Dioxide Level 29mmol/L (21-32) Anion Gap 9 (6-14) Blood Urea Nitrogen 52mg/dL (8-26) Creatinine 4.0mg/dL (0.7-1.3) Estimated GFR (Cockcroft-Gault) 14.9 Glucose Level 176mg/dL (70-99) Calcium Level 8.3mg/dL (8.5-10.1) Phosphorus Level 6.6mg/dL (2.6-4.7) Magnesium Level 2.3mg/dL (1.8-2.4) Albumin 1.8g/dL (3.4-5.0) Laboratory Tests Test 11/03/16 10:16 11/03/16 16:58 11/03/16 20:46 11/04/16 05:00 Glucose (Fingerstick) 172mg/dL (70-99) 148mg/dL (70-99) 143mg/dL (70-99) White Blood Count 6.0x10^3/uL (4.0-11.0) Red Blood Count 3.05x10^6/uL (4.30-5.70) Hemoglobin 8.7g/dL (13.0-17.5) Hematocrit 26.3% (39.0-53.0) Mean Corpuscular Volume 86fL (79-100) Mean Corpuscular Hemoglobin 29pg (25-35) Mean Corpuscular Hemoglobin Concent 33g/dL (31-37) Red Cell Distribution Width 14.6% (11.5-14.5) Platelet Count 138x10^3/uL (140-400) Neutrophils (%) (Auto) 67% (31-73) Lymphocytes (%) (Auto) 18% (24-48) Monocytes (%) (Auto) 10% (0-9) Eosinophils (%) (Auto) 2% (0-3) Basophils (%) (Auto) 2% (0-3) Neutrophils # (Auto) 4.0x10^3uL (1.8-7.7) Lymphocytes # (Auto) 1.1x10^3/uL (1.0-4.8) Monocytes # (Auto) 0.6x10^3/uL (0.0-1.1) Eosinophils # (Auto) 0.1x10^3/uL (0.0-0.7) Basophils # (Auto) 0.1x10^3/uL (0.0-0.2) Sodium Level 144mmol/L (136-145) Potassium Level 4.9mmol/L (3.5-5.1) Chloride Level 106mmol/L (98-107) Carbon Dioxide Level 29mmol/L (21-32) Anion Gap 9 (6-14) Blood Urea Nitrogen 52mg/dL (8-26) Creatinine 4.0mg/dL (0.7-1.3) Estimated GFR (Cockcroft-Gault) 14.9 Glucose Level 176mg/dL (70-99) Calcium Level 8.3mg/dL (8.5-10.1) Phosphorus Level 6.6mg/dL (2.6-4.7) Magnesium Level 2.3mg/dL (1.8-2.4) Albumin 1.8g/dL (3.4-5.0) Medications Active Scripts Medications Dose Route/Sig Days Date Category Zofran Odt (Ondansetron) 8 Mg Tab.rapdis 1 Tab PO Q8HRS 09/30/16 Reported Colace (Docusate Sodium) 100 Mg Capsule 1 Cap PO BID 09/30/16 Reported Hydrocodone-Apap 7.5-325 (Hydrocodone Bit/Acetaminophen) 1 Each Tablet 1 Tab PO Q3HRS PRN 09/30/16 Reported Glimepiride 4 Mg Tablet 1 Tab PO BID 09/29/16 Reported Glimepiride 2 Mg Tablet 1 Tab PO BID 09/29/16 Reported Levemir (Insulin Detemir) 100 Unit/1 Ml Vial 30 Unit SQ HS 06/29/14 Reported Comments cxr reviewed improved Impression . 1. Acute hypoxic respiratory failure sec to heart failure, 2. Clinically, less likely pneumonia, possible lung injury 3. Underlying chronic obstructive pulmonary disease. 4. Abnormal chest x-ray with diffuse interstitial infiltrates, more compatible with pulmonary edema 5. Acute kidney injury on chronic kidney disease. s/p emergent dialysis. 6. Hypoglycemia, now being corrected. 7. Normal ejection fraction on recent echo. Plan . D/C OK PT FEELS BETTER HD 02 MANUELITO MUÑOZ MD Nov 04, 2016 09:44
[2016-11-04] MEDS ORDERED: NYSTATIN TOPICAL POWDER 15GM BOTTLE. TP SCH (10:30)
--- NOTE | 2016-11-04 10:30 | PDOC ---
G I PROGRESS NOTE Subjective No real complaints. Says eating well and diarrhea improving. Physical Exam Lungs clear. RRR Abdomen soft, not tender nor distended. Review of Relevant I have reviewed the following items jovan (where applicable) has been applied. Labs Laboratory Tests Test 11/02/16 12:06 11/02/16 16:38 11/02/16 21:36 11/03/16 03:52 Glucose (Fingerstick) 158mg/dL (70-99) 313mg/dL (70-99) 178mg/dL (70-99) White Blood Count 5.8x10^3/uL (4.0-11.0) Red Blood Count 2.64x10^6/uL (4.30-5.70) Hemoglobin 7.5g/dL (13.0-17.5) Hematocrit 22.9% (39.0-53.0) Mean Corpuscular Volume 87fL (79-100) Mean Corpuscular Hemoglobin 28pg (25-35) Mean Corpuscular Hemoglobin Concent 33g/dL (31-37) Red Cell Distribution Width 15.5% (11.5-14.5) Platelet Count 136x10^3/uL (140-400) Neutrophils (%) (Auto) 69% (31-73) Lymphocytes (%) (Auto) 17% (24-48) Monocytes (%) (Auto) 11% (0-9) Eosinophils (%) (Auto) 2% (0-3) Basophils (%) (Auto) 1% (0-3) Neutrophils # (Auto) 4.1x10^3uL (1.8-7.7) Lymphocytes # (Auto) 1.0x10^3/uL (1.0-4.8) Monocytes # (Auto) 0.6x10^3/uL (0.0-1.1) Eosinophils # (Auto) 0.1x10^3/uL (0.0-0.7) Basophils # (Auto) 0.1x10^3/uL (0.0-0.2) Test 11/03/16 07:24 11/03/16 10:16 11/03/16 16:58 11/03/16 20:46 Glucose (Fingerstick) 175mg/dL (70-99) 172mg/dL (70-99) 148mg/dL (70-99) 143mg/dL (70-99) Test 11/04/16 05:00 11/04/16 07:51 White Blood Count 6.0x10^3/uL (4.0-11.0) Red Blood Count 3.05x10^6/uL (4.30-5.70) Hemoglobin 8.7g/dL (13.0-17.5) Hematocrit 26.3% (39.0-53.0) Mean Corpuscular Volume 86fL (79-100) Mean Corpuscular Hemoglobin 29pg (25-35) Mean Corpuscular Hemoglobin Concent 33g/dL (31-37) Red Cell Distribution Width 14.6% (11.5-14.5) Platelet Count 138x10^3/uL (140-400) Neutrophils (%) (Auto) 67% (31-73) Lymphocytes (%) (Auto) 18% (24-48) Monocytes (%) (Auto) 10% (0-9) Eosinophils (%) (Auto) 2% (0-3) Basophils (%) (Auto) 2% (0-3) Neutrophils # (Auto) 4.0x10^3uL (1.8-7.7) Lymphocytes # (Auto) 1.1x10^3/uL (1.0-4.8) Monocytes # (Auto) 0.6x10^3/uL (0.0-1.1) Eosinophils # (Auto) 0.1x10^3/uL (0.0-0.7) Basophils # (Auto) 0.1x10^3/uL (0.0-0.2) Sodium Level 144mmol/L (136-145) Potassium Level 4.9mmol/L (3.5-5.1) Chloride Level 106mmol/L (98-107) Carbon Dioxide Level 29mmol/L (21-32) Anion Gap 9 (6-14) Blood Urea Nitrogen 52mg/dL (8-26) Creatinine 4.0mg/dL (0.7-1.3) Estimated GFR (Cockcroft-Gault) 14.9 Glucose Level 176mg/dL (70-99) Calcium Level 8.3mg/dL (8.5-10.1) Phosphorus Level 6.6mg/dL (2.6-4.7) Magnesium Level 2.3mg/dL (1.8-2.4) Albumin 1.8g/dL (3.4-5.0) Glucose (Fingerstick) 152mg/dL (70-99) Laboratory Tests Test 11/03/16 16:58 11/03/16 20:46 11/04/16 05:00 11/04/16 07:51 Glucose (Fingerstick) 148mg/dL (70-99) 143mg/dL (70-99) 152mg/dL (70-99) White Blood Count 6.0x10^3/uL (4.0-11.0) Red Blood Count 3.05x10^6/uL (4.30-5.70) Hemoglobin 8.7g/dL (13.0-17.5) Hematocrit 26.3% (39.0-53.0) Mean Corpuscular Volume 86fL (79-100) Mean Corpuscular Hemoglobin 29pg (25-35) Mean Corpuscular Hemoglobin Concent 33g/dL (31-37) Red Cell Distribution Width 14.6% (11.5-14.5) Platelet Count 138x10^3/uL (140-400) Neutrophils (%) (Auto) 67% (31-73) Lymphocytes (%) (Auto) 18% (24-48) Monocytes (%) (Auto) 10% (0-9) Eosinophils (%) (Auto) 2% (0-3) Basophils (%) (Auto) 2% (0-3) Neutrophils # (Auto) 4.0x10^3uL (1.8-7.7) Lymphocytes # (Auto) 1.1x10^3/uL (1.0-4.8) Monocytes # (Auto) 0.6x10^3/uL (0.0-1.1) Eosinophils # (Auto) 0.1x10^3/uL (0.0-0.7) Basophils # (Auto) 0.1x10^3/uL (0.0-0.2) Sodium Level 144mmol/L (136-145) Potassium Level 4.9mmol/L (3.5-5.1) Chloride Level 106mmol/L (98-107) Carbon Dioxide Level 29mmol/L (21-32) Anion Gap 9 (6-14) Blood Urea Nitrogen 52mg/dL (8-26) Creatinine 4.0mg/dL (0.7-1.3) Estimated GFR (Cockcroft-Gault) 14.9 Glucose Level 176mg/dL (70-99) Calcium Level 8.3mg/dL (8.5-10.1) Phosphorus Level 6.6mg/dL (2.6-4.7) Magnesium Level 2.3mg/dL (1.8-2.4) Albumin 1.8g/dL (3.4-5.0) Microbiology 10/25/16 Blood Culture - Final, Complete NO GROWTH AFTER 5 DAYS 10/21/16 Urine Culture - Final, Complete 10/21/16 Urine Culture Result 1 (HERBERT) - Final, Complete 10/22/16 Gram Stain - Final, Complete Medications Current Medications Diltiazem HCl 20 mg 20 mg 1X ONCE IVP Last administered on 10/20/16 13:35; Start 10/20/16 at 13:30; Stop 10/20/16 at 13:31; Status DC Diltiazem HCl 125 mg/Dextrose 125 ml @ 10 mls/hr 1X ONCE IV Last administered on 10/20/16 13:49; Start 10/20/16 at 13:30; Stop 10/20/16 at 19:37; Status DC Sodium Chloride (Iv Sodium Chloride 0.9% 1000ml Bag) 1,000 ml @ 100 mls/hr Q10H IV Last administered on 10/20/16 13:45; Start 10/20/16 at 13:30; Stop at 23:29; Status DC Diltiazem HCl (Cardizem) 20 mg 1X ONCE IVP Last administered on 10/20/16 14:16 ; Start 10/20/16 at 14:00; Stop 10/20/16 at 14:01; Status DC Vancomycin HCl (Vanco Per Pharmacy) 1 each PRN DAILY PRN MC SEE COMMENTS Last administered on 10/20/16 16:49; Start 10/20/16 at 14:45; Stop 10/21/16 at 07:42; Status DC Piperacillin Sod/ Tazobactam Sod 1 each 1 each PRN DAILY PRN MC SEE COMMENTS; Start 10/20/16 at 14:45; Stop 10/21/16 at 07:49; Status DC Vancomycin HCl 2 gm/Sodium Chloride 500 ml @ 250 mls/hr 1X ONCE IV Last administered on 10/20/16 15:45; Start 10/20/16 at 15:00; Stop 10/20/16 at 16:59; Status DC Piperacillin Sod/ Tazobactam Sod/ Sodium Chloride (Zosyn/Iv Sodium Chloride 0.9 % 50ml) 50 ml @ 100 mls/hr 1X ONCE IV Last administered on 10/20/16 15:04; Start 10/20/16 at 15:00; Stop 10/20/16 at 15:29; Status DC Ondansetron HCl (Zofran) 4 mg PRN Q8HRS PRN IV NAUSEA/VOMITING; Start 10/20/16 at 15:00; Stop 10/20/16 at 15:16; Status DC Fentanyl Citrate 50 mcg 50 mcg PRN Q2HR PRN IV PAIN; Start 10/20/16 at 15:00; Stop 10/21/16 at 14:59; Status DC Sodium Chloride (Iv Sodium Chloride 0.9% 1000ml Bag) 1,000 ml @ 100 mls/hr Q10H IV Last administered on 10/21/16 11:30; Start 10/20/16 at 15:30; Stop at 15:29; Status DC Acetaminophen (Tylenol) 650 mg PRN Q4HRS PRN PO FEVER; Start 10/20/16 at 15:00; Stop 10/21/16 at 14:59; Status DC Ondansetron HCl (Zofran) 4 mg PRN Q6HRS PRN IV NAUSEA/VOMITING; Start 10/20/16 at 15:12 Insulin Aspart (Novolog) 0-9 UNITS TIDWMEALS SQ Last administered on 11/04/16 09:28; Start 10/20/16 at 17:00 Dextrose 12.5 gm PRN Q15MIN PRN IV SEE COMMENTS Last administered on 10/26/16 23:42; Start 10/20/16 at 15:15 Docusate Sodium (Colace) 100 mg BID PO Last administered on 11/03/16 21:44; Start 10/20/16 at 21:00 Glimepiride (Amaryl) 2 mg BID PO ; Start 10/20/16 at 21:00; Status UNV Acetaminophen/ Hydrocodone Bitart (Lortab 7.5/325) 1 tab PRN Q3HRS PRN PO PAIN Last administered on 10/26/16 15:27; Start 10/20/16 at 15:15 Glimepiride (Amaryl) 4 mg BIDWMEALS PO Last administered on 10/20/16 17:32; Start 10/20/16 at 17:00; Stop 10/21/16 at 14:52; Status DC Insulin Detemir (Levemir) 30 units QHS SQ Last administered on 10/20/16 21:03; Start 10/20/16 at 21:00; Stop 10/21/16 at 14:52; Status DC Ondansetron HCl 4 mg 4 mg Q8HRS PO Last administered on 10/21/16 06:17; Start 10/20/16 at 22:00; Stop 10/21/16 at 17:24; Status DC Sodium Chloride 500 ml @ 500 mls/hr 1X ONCE IV ; Start 10/20/16 at 15:30; Stop 10/20/16 at 16:29; Status DC Piperacillin Sod/ Tazobactam Sod 2.25 gm/Sodium Chloride 50 ml @ 100 mls/hr Q6HRS IV Last administered on 10/27/16 06:03; Start 10/21/16 at 00:00; Stop at 07:43; Status DC Vancomycin HCl/ Sodium Chloride (Iv Sodium Chloride 0.9% 250ml) 250 ml @ 167 mls/hr Q24H IV ; Start 10/21/16 at 16:00; Stop 10/21/16 at 16:00; Status DC Vancomycin HCl 1 each 1 each 1X ONCE MC ; Start 10/22/16 at 15:30; Stop 10/22/16 at 15:31; Status Cancel Dopamine HCl/ Dextrose 250 ml @ 13.183 mls/ hr CONT PRN IV SEE I/O RECORD Last administered on 10/20/16 20:38; Start 10/20/16 at 19:30; Stop 10/28/16 at 15 :26; Status DC Digoxin (Lanoxin) 250 mcg 1X ONCE IV Last administered on 10/20/16 21:02; Start 10/20/16 at 20:45; Stop 10/20/16 at 20:46; Status DC Digoxin (Lanoxin) 250 mcg 1X ONCE IV Last administered on 10/21/16 01:48; Start 10/21/16 at 02:00; Stop 10/21/16 at 02:01; Status DC Digoxin 250 mcg 250 mcg 1X ONCE IV Last administered on 10/21/16 04:12; Start 10/21/16 at 04:15; Stop 10/21/16 at 04:16; Status DC Diltiazem HCl 125 mg/Dextrose 125 ml @ 0 mls/hr CONT PRN IV SEE I/O RECORD Last administered on 10/21/16 23:03; Start 10/21/16 at 04:15; Stop 10/22/16 at 09: 44; Status DC Linezolid 300 ml @ 300 mls/hr Q12HR IV Last administered on 10/22/16 20:18; Start 10/21/16 at 09:00; Stop 10/23/16 at 07:26; Status DC Magnesium Sulfate/ Dextrose 50 ml @ 25 mls/hr PRN DAILY PRN IV for Mag < 1.7 on am labs Last administered on 10/22/16 15:15; Start 10/21/16 at 09:45; Stop at 11:23; Status DC Albumin Human (Plasmanate) 500 ml @ 125 mls/hr 1X ONCE IV Last administered on 10/21/16 10:25; Start 10/21/16 at 09:45; Stop 10/21/16 at 13:44; Status DC Ondansetron HCl (Zofran) 4 mg PRN Q6HRS PRN IV Nausea; Start 10/21/16 at 10:00; Stop 10/22/16 at 09:59; Status DC Fentanyl Citrate (Fentanyl 2ml Vial) 25 mcg PRN Q5MIN PRN IV MILD PAIN; Start 10/21/16 at 10:00; Stop 10/22/16 at 09:59; Status DC Fentanyl Citrate (Fentanyl 2ml Vial) 50 mcg PRN Q5MIN PRN IV MODERATE PAIN; Start 10/21/16 at 10:00; Stop 10/22/16 at 09:59; Status DC Morphine Sulfate 1 mg 1 mg PRN Q10MIN PRN IV SEVERE PAIN; Start 10/21/16 at 10: 00; Stop 10/22/16 at 09:59; Status DC Lactated Ringer's (Iv Lactated Ringers) 1,000 ml @ 30 mls/hr Q24H IV ; Start at 09:50; Stop 10/21/16 at 21:49; Status DC Lidocaine HCl 2 ml 1X PRN PRN ID IV START; Start 10/21/16 at 10:00; Stop at 09:59; Status DC Hydromorphone HCl (Dilaudid) 0.5 mg PRN Q10MIN PRN IV SEV PAIN,Second choice; Start 10/21/16 at 10:00; Stop 10/22/16 at 09:59; Status DC Prochlorperazine Edisylate 5 mg 5 mg PACU PRN PRN IV NAUSEA; Start 10/21/16 at 10:00; Stop 10/22/16 at 09:59; Status DC Sodium Chloride (Iv Sodium Chloride 0.9% 500ml Bag) 500 ml @ 0 mls/hr PRN QID PRN IV UO< 30cc/hr over previous 6hrs; Start 10/21/16 at 10:15; Stop 10/21/16 at 17:27; Status DC Ondansetron HCl (Zofran) 4 mg PRN Q6HRS PRN IV Nausea; Start 10/21/16 at 11:30; Stop 10/22/16 at 11:29; Status DC Morphine Sulfate 1 mg 1 mg PRN Q10MIN PRN IV SEVERE PAIN; Start 10/21/16 at 11: 30; Stop 10/22/16 at 11:29; Status DC Lactated Ringer's (Iv Lactated Ringers) 1,000 ml @ 0 mls/hr Q0M IV ; Start 10/21 at 11:19; Stop 10/21/16 at 23:18; Status DC Lidocaine HCl 2 ml 1X PRN PRN ID IV START; Start 10/21/16 at 11:30; Stop at 11:29; Status DC Hydromorphone HCl (Dilaudid) 0.5 mg PRN Q10MIN PRN IV SEV PAIN,Second choice; Start 10/21/16 at 11:30; Stop 10/22/16 at 11:29; Status DC Prochlorperazine Edisylate (Compazine) 5 mg PACU PRN PRN IV NAUSEA; Start at 11:30; Stop 10/22/16 at 11:29; Status DC Atorvastatin Calcium (Lipitor) 20 mg QHS PO Last administered on 11/03/16 21: 44; Start 10/21/16 at 21:00 Aspirin (Ecotrin) 81 mg DAILYWBKFT PO Last administered on 11/04/16 09:19; Start 10/21/16 at 12:00 Ondansetron HCl (Zofran) 4 mg PRN Q6HRS PRN IV Nausea; Start 10/22/16 at 07:00; Stop 10/23/16 at 06:59; Status DC Morphine Sulfate 1 mg 1 mg PRN Q10MIN PRN IV SEVERE PAIN; Start 10/22/16 at 07: 00; Stop 10/23/16 at 06:59; Status DC Lactated Ringer's (Iv Lactated Ringers) 1,000 ml @ 30 mls/hr Q24H IV ; Start at 07:00; Stop 10/22/16 at 15:07; Status DC Lidocaine HCl 2 ml 1X PRN PRN ID IV START; Start 10/22/16 at 07:00; Stop at 06:59; Status DC Hydromorphone HCl (Dilaudid) 0.5 mg PRN Q10MIN PRN IV SEVERE PAIN, Second choice; Start 10/22/16 at 07:00; Stop 10/23/16 at 06:59; Status DC Prochlorperazine Edisylate (Compazine) 5 mg PACU PRN PRN IV NAUSEA; Start at 07:00; Stop 10/23/16 at 06:59; Status DC Aspirin (Ecotrin) 81 mg DAILYWBKFT PO ; Start 10/22/16 at 08:00; Status UNV Insulin Detemir (Levemir) 20 units QHS SQ ; Start 10/21/16 at 21:00; Stop at 08:29; Status DC Ondansetron HCl 4 mg 4 mg PRN Q8HRS PRN PO NAUSEA; Start 10/22/16 at 14:00 Sodium Chloride 1,000 ml @ 175 mls/hr Q5H43M IV Last administered on 05:30; Start 10/21/16 at 18:00; Stop 10/23/16 at 07:20; Status DC Dextrose 1,000 ml @ 75 mls/hr [id number] IV Last administered on 10/22/16 04:54; Start 10/22/16 at 04:45; Stop 10/22/16 at 15:05; Status DC Bupivacaine HCl (Sensorcaine Mpf 0.5%) 30 ml STK-MED ONCE .ROUTE ; Start at 06:45; Stop 10/22/16 at 06:46; Status DC Lidocaine HCl 20 ml 20 ml STK-MED ONCE .ROUTE ; Start 10/22/16 at 06:46; Stop 10/22/16 at 06:47; Status DC Propofol (Diprivan) 20 ml @ As Directed STK-MED ONCE IV ; Start 10/22/16 at 08:02 ; Stop 10/22/16 at 08:03; Status DC Lidocaine HCl 100 mg STK-MED ONCE .ROUTE ; Start 10/22/16 at 08:02; Stop 10/22/16 at 08:03; Status DC Ondansetron HCl (Zofran) 4 mg STK-MED ONCE .ROUTE ; Start 10/22/16 at 08:31; Stop 10/22/16 at 08:32; Status DC Phenylephrine HCl 1 mg STK-MED ONCE IV ; Start 10/22/16 at 08:31; Stop 10/22/16 at 08:32; Status DC Dexamethasone Sodium Phosphate (Decadron) 20 mg STK-MED ONCE .ROUTE ; Start 10/22 at 08:48; Stop 10/22/16 at 08:49; Status DC Sevoflurane (Ultane) 30 ml STK-MED ONCE IH ; Start 10/22/16 at 08:48; Stop at 08:49; Status DC Diltiazem HCl (Cardizem) 30 mg Q6HRS PO Last administered on 10/27/16 11:27; Start 10/22/16 at 10:00; Stop 10/27/16 at 12:31; Status DC Metoprolol Tartrate 5 mg 5 mg PRN Q6HRS PRN IVP ELEVATED BP, SEE COMMENTS; Start 10/22/16 at 09:45 Albumin Human (Plasmanate) 500 ml @ 125 mls/hr 1X ONCE IV Last administered on 10/22/16 11:20; Start 10/22/16 at 09:45; Stop 10/22/16 at 13:44; Status DC Info (Anti-Coagulation Monitoring By Pharmacy) 1 each PRN DAILY PRN MC SEE COMMENTS; Start 10/22/16 at 15:15; Status UNV Heparin Sodium (Porcine) 5,000 unit Q12HR SQ Last administered on 10/28/16 11: 08; Start 10/22/16 at 21:00; Stop 10/28/16 at 16:02; Status DC Loperamide HCl (Imodium) 2 mg PRN Q15MIN PRN PO DIARRHEA Last administered on 21:48; Start 10/22/16 at 20:00 Insulin Human Regular (Novolin R Vial) 10 unit 1X ONCE IV Last administered on 10/22/16 23:52; Start 10/22/16 at 01:00; Stop 10/22/16 at 23:46; Status DC Insulin Detemir (Levemir) 10 units 1X ONCE SQ Last administered on 10/22/16 23 :53; Start 10/22/16 at 23:45; Stop 10/22/16 at 23:46; Status DC Insulin Human Regular 10 unit 10 unit 1X ONCE IV Last administered on 00:09; Start 10/23/16 at 00:00; Stop 10/23/16 at 00:01; Status DC Sodium Chloride 38.75 meq/Sodium Bicarbonate 75 meq/Sterile Water 1,084.6875 ml @ 150 mls/hr CONT PRN IV SEE I/O RECORD Last administered on 10/24/16 07:12; Start 10/23/16 at 07:30 Albumin Human (Albuminar) 100 ml @ 100 mls/hr TID IV Last administered on 10/24 21:23; Start 10/23/16 at 09:00; Stop 10/24/16 at 21:59; Status DC Heparin Sodium (Porcine) 10,000 unit STK-MED ONCE .ROUTE ; Start 10/23/16 at 07: 55; Stop 10/23/16 at 07:56; Status DC Lidocaine/Sodium Bicarbonate 20 ml 20 ml STK-MED ONCE IJ ; Start 10/23/16 at 07: 55; Stop 10/23/16 at 07:56; Status DC Heparin Sodium/ Sodium Chloride 500 ml @ As Directed STK-MED ONCE .ROUTE ; Start 10/23/16 at 07:55; Stop 10/23/16 at 07:56; Status DC Insulin Detemir (Levemir) 20 units [id number] SQ ; Start 10/23/16 at 08:00; Stop at 08:01; Status DC Insulin Aspart (Novolog) 10 units TIDAC SQ Last administered on 10/23/16 17:46 ; Start 10/23/16 at 11:30; Stop 10/24/16 at 11:12; Status DC Insulin Detemir (Levemir) 30 units DAILY08 SQ Last administered on 10/23/16 09 :55; Start 10/23/16 at 08:30; Stop 10/24/16 at 11:12; Status DC Lidocaine/Sodium Bicarbonate (Buffered Lidocaine 1%) 3 ml 1X ONCE IJ Last administered on 10/23/16 08:48; Start 10/23/16 at 08:30; Stop 10/23/16 at 08:31 ; Status DC Heparin Sodium/ Sodium Chloride 60 unit 1X ONCE IV Last administered on 08:48; Start 10/23/16 at 08:30; Stop 10/23/16 at 08:31; Status DC Heparin Sodium (Porcine) 2,500 unit 1X ONCE INT CAT Last administered on 08:48; Start 10/23/16 at 08:30; Stop 10/23/16 at 08:31; Status DC Albuterol/ Ipratropium (Duoneb) 3 ml RTQID NEB Last administered on 11/04/16 07:18; Start 10/24/16 at 12:00 Albuterol/ Ipratropium (Duoneb) 3 ml 1X ONCE NEB Last administered on 09:11; Start 10/24/16 at 09:00; Stop 10/24/16 at 09:01; Status DC Budesonide (Pulmicort) 0.5 mg RTBID NEB Last administered on 11/04/16 07:18; Start 10/24/16 at 10:00 Insulin Aspart (Novolog) 7 units TIDAC SQ Last administered on 11/04/16 09:29 ; Start 10/24/16 at 11:30 Insulin Detemir (Levemir) 20 units [id number] SQ Last administered on 11/01/16 09 :37; Start 10/25/16 at 08:00; Stop 11/03/16 at 11:00; Status DC Potassium Chloride 20 meq 20 meq 1X ONCE PO Last administered on 10/24/16 18: 28; Start 10/24/16 at 12:00; Stop 10/24/16 at 12:01; Status DC Sodium Chloride 1,000 ml @ 1,000 mls/hr Q1H PRN IV hypotension; Start 10/24/16 at 13:00; Stop 10/24/16 at 18:59; Status DC Albumin Human (Albuminar) 200 ml @ 200 mls/hr 1X PRN PRN IV Hypotension; Start 10/24/16 at 14:00; Stop 10/24/16 at 19:59; Status DC Acetaminophen (Tylenol) 500 mg 1X PRN PRN PO MILD PAIN / TEMP; Start 10/24/16 at 14:00; Stop 10/25/16 at 13:59; Status DC Diphenhydramine HCl (Benadryl) 25 mg 1X PRN PRN IV ITCHING; Start 10/24/16 at 14:00; Stop 10/25/16 at 13:59; Status DC Diphenhydramine HCl (Benadryl) 25 mg 1X PRN PRN IV ITCHING; Start 10/24/16 at 14:00; Stop 10/25/16 at 13:59; Status DC Info (PHARMACY MONITORING -- do not chart) 1 each PRN DAILY PRN MC SEE COMMENTS ; Start 10/24/16 at 14:00; Stop 10/25/16 at 13:16; Status DC Potassium Chloride 20 meq 20 meq 1X ONCE PO ; Start 10/24/16 at 18:30; Stop 07/02 at 18:31; Status DC Amino Acids/ Electrolytes (Clinimix E 2.75%-5% Solution) 1,000 ml @ 55 mls/hr [id number] IV Last administered on 10/27/16 00:52; Start 10/25/16 at 12:00; Stop 10/27/16 at 14:10; Status DC Hydralazine HCl 10 mg 10 mg PRN Q4HRS PRN IVP ELEVATED BP, SEE COMMENTS Last administered on 10/27/16 06:05; Start 10/25/16 at 12:45 Sodium Chloride 1,000 ml @ 1,000 mls/hr Q1H PRN IV hypotension; Start 10/25/16 at 13:07; Stop 10/25/16 at 19:06; Status DC Albumin Human (Albuminar) 200 ml @ 200 mls/hr 1X PRN PRN IV Hypotension Last administered on 10/25/16 14:30; Start 10/25/16 at 13:15; Stop 10/25/16 at 19:14 ; Status DC Acetaminophen (Tylenol) 500 mg 1X PRN PRN PO MILD PAIN / TEMP; Start 10/25/16 at 13:15; Stop 10/26/16 at 13:14; Status DC Diphenhydramine HCl (Benadryl) 25 mg 1X PRN PRN IV ITCHING; Start 10/25/16 at 13:15; Stop 10/26/16 at 13:14; Status DC Diphenhydramine HCl (Benadryl) 25 mg 1X PRN PRN IV ITCHING; Start 10/25/16 at 13:15; Stop 10/26/16 at 13:14; Status DC Info (PHARMACY MONITORING -- do not chart) 1 each PRN DAILY PRN MC SEE COMMENTS ; Start 10/25/16 at 13:15 Famotidine (Pepcid) 20 mg QHS IVP Last administered on 10/26/16 21:17; Start 10/26/16 at 21:00; Stop 10/27/16 at 11:20; Status DC Furosemide 40 mg 40 mg [id number] IVP Last administered on 11/01/16 09:26; Start at 12:00; Stop 11/01/16 at 11:07; Status DC Sodium Chloride 1,000 ml @ 1,000 mls/hr Q1H PRN IV hypotension; Start 10/26/16 at 13:55; Stop 10/26/16 at 19:54; Status DC Sodium Chloride (Iv Sodium Chloride 0.9% 1000ml Bag) 1,000 ml @ 400 mls/hr Q2H30M PRN IV PATENCY; Start 10/26/16 at 13:55; Stop 10/27/16 at 01:54; Status DC Info 1 each 1 each PRN DAILY PRN MC SEE COMMENTS; Start 10/26/16 at 14:00; Status UNV Meropenem/Sodium Chloride (Merrem/Iv Sodium Chloride 0.9% 50ml) 50 ml @ 100 mls /hr Q6HRS IV Last administered on 10/28/16 06:00; Start 10/27/16 at 12:00; Stop 10/28/16 at 09:22; Status DC Metoprolol Tartrate (Lopressor) 25 mg BID PO Last administered on 11/03/16 21: 44; Start 10/27/16 at 12:00 Famotidine (Pepcid) 20 mg QHS PO Last administered on 11/03/16 21:44; Start at 21:00 Diltiazem HCl (Cardizem 24hr Cd) 180 mg [id number] PO Last administered on 17:18; Start 10/27/16 at 17:00 Regadenoson (Lexiscan) 0.4 mg 1X ONCE IV Last administered on 10/28/16 09:18 ; Start 10/28/16 at 07:45; Stop 10/28/16 at 07:46; Status DC Lactobacillus Acidophilus 1 tab 1 tab TIDWMEALS PO Last administered on 09:19; Start 10/28/16 at 12:00 Meropenem 500 mg/ Sodium Chloride 50 ml @ 100 mls/hr Q12HR IV Last administered on 10/29/16 21:36; Start 10/28/16 at 21:00; Stop 10/30/16 at 09:05 ; Status DC Sodium Chloride 1,000 ml @ 1,000 mls/hr Q1H PRN IV hypotension; Start 10/28/16 at 09:34; Stop 10/28/16 at 15:33; Status DC Albumin Human (Albuminar) 200 ml @ 200 mls/hr 1X PRN PRN IV Hypotension; Start 10/28/16 at 09:45; Stop 10/28/16 at 15:44; Status DC Acetaminophen (Tylenol) 500 mg 1X PRN PRN PO MILD PAIN / TEMP; Start 10/28/16 at 09:45; Stop 10/28/16 at 16:02; Status DC Diphenhydramine HCl (Benadryl) 25 mg 1X PRN PRN IV ITCHING; Start 10/28/16 at 09:45; Stop 10/28/16 at 16:02; Status DC Diphenhydramine HCl (Benadryl) 25 mg 1X PRN PRN IV ITCHING; Start 10/28/16 at 09:45; Stop 10/28/16 at 16:02; Status DC Sodium Chloride (Normal Saline Flush) 10 ml 1X PRN PRN IV AP catheter pack; Start 10/28/16 at 09:45; Stop 10/28/16 at 16:02; Status DC Sodium Chloride (Normal Saline Flush) 10 ml 1X PRN PRN IV [employer] catheter pack; Start 10/28/16 at 09:45; Stop 10/28/16 at 16:02; Status DC Labetalol HCl 10 mg 10 mg PRN Q1HR PRN IVP SBP > 180; Start 10/28/16 at 09:45; Stop 10/28/16 at 16:02; Status DC Sodium Chloride (Iv Sodium Chloride 0.9% 1000ml Bag) 1,000 ml @ 400 mls/hr Q2H30M PRN IV PATENCY; Start 10/28/16 at 09:34; Stop 10/28/16 at 21:33; Status DC Info 1 each 1 each PRN DAILY PRN MC SEE COMMENTS; Start 10/28/16 at 09:45; Status UNV Sodium Chloride (Iv Sodium Chloride 0.9% 1000ml Bag) 1,000 ml @ 1,000 mls/hr Q1H PRN IV hypotension; Start 10/28/16 at 12:47; Stop 10/28/16 at 18:46; Status UNV Diphenhydramine HCl (Benadryl) 25 mg 1X PRN PRN IV ITCHING; Start 10/28/16 at 13:00; Stop 10/29/16 at 12:59; Status UNV Diphenhydramine HCl (Benadryl) 25 mg 1X PRN PRN IV ITCHING; Start 10/28/16 at 13:00; Stop 10/29/16 at 12:59; Status UNV Sodium Chloride (Normal Saline Flush) 10 ml 1X PRN PRN IV AP catheter pack; Start 10/28/16 at 13:00; Stop 10/29/16 at 12:59; Status UNV Sodium Chloride 10 ml 10 ml 1X PRN PRN IV [employer] catheter pack; Start 10/28/16 at 13:00; Stop 10/29/16 at 12:59; Status UNV Sodium Chloride (Iv Sodium Chloride 0.9% 1000ml Bag) 1,000 ml @ 400 mls/hr Q2H30M PRN IV PATENCY; Start 10/28/16 at 12:47; Stop 10/29/16 at 00:46; Status UNV Info (PHARMACY MONITORING -- do not chart) 1 each PRN DAILY PRN MC SEE COMMENTS ; Start 10/28/16 at 13:00; Status UNV Apixaban 5 mg 5 mg BID PO Last administered on 11/04/16 09:20; Start 10/28/16 at 21:00 Sodium Chloride 1,000 ml @ 1,000 mls/hr Q1H PRN IV hypotension; Start 10/30/16 at 08:30; Stop 10/30/16 at 15:00; Status DC Albumin Human 200 ml @ 200 mls/hr 1X PRN PRN IV Hypotension; Start 10/30/16 at 08:30; Stop 10/30/16 at 14:29; Status DC Sodium Chloride (Iv Sodium Chloride 0.9% 1000ml Bag) 1,000 ml @ 400 mls/hr Q2H30M PRN IV PATENCY; Start 10/30/16 at 08:21; Stop 10/30/16 at 16:00; Status DC Info 1 each 1 each PRN DAILY PRN MC SEE COMMENTS; Start 10/30/16 at 08:30; Status UNV Piperacillin Sod/ Tazobactam Sod/ Sodium Chloride (Zosyn/Iv Sodium Chloride 0.9 % 50ml) 50 ml @ 100 mls/hr Q6HRS IV Last administered on 11/04/16 06:12; Start 10/30/16 at 12:00 Info (Anti-Coagulation Monitoring By Pharmacy) 1 each PRN DAILY PRN MC SEE COMMENTS Last administered on 11/02/16 13:20; Start 10/30/16 at 12:45 Heparin Sodium (Porcine) 10,000 unit STK-MED ONCE .ROUTE ; Start 10/30/16 at 13: 21; Stop 10/30/16 at 13:22; Status DC Lidocaine/ Epinephrine 20 ml 20 ml STK-MED ONCE .ROUTE ; Start 10/30/16 at 13:21 ; Stop 10/30/16 at 13:22; Status DC Heparin Sodium/ Sodium Chloride 500 ml @ As Directed STK-MED ONCE .ROUTE ; Start 10/30/16 at 13:21; Stop 10/30/16 at 13:22; Status DC Midazolam HCl (Versed) 2 mg STK-MED ONCE .ROUTE ; Start 10/30/16 at 13:33; Stop 10/30/16 at 13:34; Status DC Fentanyl Citrate 100 mcg 100 mcg STK-MED ONCE .ROUTE ; Start 10/30/16 at 13:34; Stop 10/30/16 at 13:35; Status DC Cefazolin Sodium (Ancef 1gm Ivpb For Omni) 0 ml @ As Directed STK-MED ONCE IV ; Start 10/30/16 at 13:34; Stop 10/30/16 at 13:35; Status DC Heparin Sodium/ Sodium Chloride 1,000 unit 1X ONCE IART Last administered on 14:18; Start 10/30/16 at 14:00; Stop 10/30/16 at 14:12; Status DC Midazolam HCl (Versed) 2 mg 1X ONCE IV Last administered on 10/30/16 14:18; Start 10/30/16 at 14:00; Stop 10/30/16 at 14:12; Status DC Fentanyl Citrate (Fentanyl 2ml Vial) 100 mcg 1X ONCE IV Last administered on 14:19; Start 10/30/16 at 14:00; Stop 10/30/16 at 14:12; Status DC Lidocaine/ Epinephrine (Xylocaine 1%-Epi 1:100,000) 9 ml 1X ONCE IJ Last administered on 10/30/16 14:18; Start 10/30/16 at 14:00; Stop 10/30/16 at 14:12 ; Status DC Heparin Sodium (Porcine) 4,300 unit 1X ONCE INT CAT Last administered on 14:18; Start 10/30/16 at 14:00; Stop 10/30/16 at 14:12; Status DC Furosemide 40 mg 40 mg DAILY PO Last administered on 11/03/16 08:48; Start at 09:00 Sodium Chloride (Iv Sodium Chloride 0.9% 1000ml Bag) 1,000 ml @ 1,000 mls/hr Q1H PRN IV hypotension; Start 11/02/16 at 09:07; Stop 11/02/16 at 15:06; Status DC Sodium Chloride (Normal Saline Flush) 2.1 ml 1X PRN PRN IV AP catheter pack; Start 11/02/16 at 09:15; Stop 11/03/16 at 09:14; Status DC Sodium Chloride (Normal Saline Flush) 2.2 ml 1X PRN PRN IV [employer] catheter pack; Start 11/02/16 at 09:15; Stop 11/03/16 at 09:14; Status DC Info (PHARMACY MONITORING -- do not chart) 1 each PRN DAILY PRN MC SEE COMMENTS ; Start 11/02/16 at 09:15; Stop 11/02/16 at 14:41; Status DC Insulin Detemir (Levemir) 12 units DAILY08 SQ ; Start 11/04/16 at 08:00; Stop at 08:00; Status DC Insulin Detemir 20 units 20 units DAILY08 SQ ; Start 11/04/16 at 08:00; Status Cancel Magnesium Sulfate/ Dextrose (Magnesium Sulfate PREMIX 2GM) 50 ml @ 25 mls/hr PRN DAILY PRN IV for Mag < 1.7 on am labs; Start 11/03/16 at 11:30 Acetaminophen (Tylenol) 650 mg 1X ONCE PO ; Start 11/03/16 at 12:30; Stop 11/03 at 12:30; Status DC Acetaminophen (Tylenol) 650 mg PRN 1X PRN PO PRIOR TO BLOOD Last administered on 11/03/16 14:56; Start 11/03/16 at 12:30; Stop 11/04/16 at 12:29 Insulin Detemir (Levemir) 12 units DAILY08 SQ Last administered on 11/04/16 09 :29; Start 11/04/16 at 08:00 Nystatin (Nystop) 1 jluis BID TP ; Start 11/04/16 at 10:30 Active Scripts Active Famotidine 20 Mg Tablet 20 Mg PO HS Levemir Flextouch (Insulin Detemir) 100 Unit/1 Ml Insuln.pen 20 Units SQ DAILY08 30 Days Lasix (Furosemide) 40 Mg Tablet 40 Mg PO BID Reported Zofran Odt (Ondansetron) 8 Mg Tab.rapdis 1 Tab PO Q8HRS Colace (Docusate Sodium) 100 Mg Capsule 1 Cap PO BID Hydrocodone-Apap 7.5-325 (Hydrocodone Bit/Acetaminophen) 1 Each Tablet 1 Tab PO Q3HRS PRN Vitals/I & O Vital Sign - Last 24 Hours 11/03/16 11/03/16 11/03/16 11/03/16 11:00 11:03 14:48 15:10 Temp 97.8 98.2 98.2 97.8 98.2 98.2 Pulse 88 84 84 Resp 18 B/P 124/59 112/56 112/56 Pulse Ox 93 93 96 O2 Delivery Nasal Cannula Nasal Cannula Nasal Cannula O2 Flow Rate 1.0 11/03/16 11/03/16 11/03/16 11/03/16 15:24 15:26 16:26 17:18 Temp 97.8 98.6 97.8 98.6 Pulse 84 84 84 Resp 18 18 B/P 121/58 135/60 134/60 Pulse Ox 96 O2 Delivery Nasal Cannula O2 Flow Rate 1.0 11/03/16 11/03/16 11/03/16 11/03/16 17:26 18:40 20:00 20:56 Temp 97.8 98.6 97.8 98.6 Pulse 87 Resp 18 18 B/P 130/60 135/60 Pulse Ox 96 O2 Delivery Nasal Cannula Nasal Cannula Nasal Cannula O2 Flow Rate 1.0 2.0 1.0 11/03/16 11/03/16 11/03/16 11/04/16 20:56 21:44 23:26 02:51 Temp 97.5 98.0 97.5 98.0 Pulse 87 76 80 Resp 20 20 B/P 135/60 124/62 115/59 Pulse Ox 96 92 92 O2 Delivery Nasal Cannula Nasal Cannula Nasal Cannula O2 Flow Rate 1.0 1.0 1.0 11/04/16 11/04/16 07:00 07:20 Temp 97.7 97.7 Pulse 94 Resp 18 B/P 150/69 Pulse Ox 92 94 O2 Delivery Nasal Cannula Nasal Cannula O2 Flow Rate 1.0 1.0 Intake and Output 3/21/17 3/21/17 3/22/17 15:00 23:00 07:00 Intake Total 750 ml 1750 ml 0 ml Output Total 150 ml Balance 750 ml 1750 ml -150 ml Problem List Problems Medical Problems: (1) Acute renal failure Status: Acute (2) Atrial fibrillation with RVR Status: Acute (3) Lactic acidosis Status: Acute (4) Severe sepsis Status: Acute (5) Uncontrolled diabetes mellitus Status: Acute Assessment Seems stable from GI standpoint. Plan of Care: Continue current Tx, Mgmt PO [place] MD Nov 04, 2016 10:30
[2016-11-04 11:00] VITALS: BP 125/69
--- NOTE | 2016-11-04 12:09 | DS ---
DATE OF DISCHARGE: 10/30/2016 ADMISSION DIAGNOSES: Sepsis, wounds, end-stage renal disease on dialysis, respiratory failure. DISCHARGE DIAGNOSES: Resolving respiratory failure, resolving sepsis, end-stage renal disease, on dialysis. HOSPITAL COURSE: The patient is a pleasant 71-year-old male who has severe end-stage renal disease, on dialysis. He has severe peripheral vascular disease as well. He actually has transmetatarsal amputations on both feet. Basically, he was admitted with sepsis and respiratory failure. We gave him antibiotics. We had him on BiPAP. We did some wound care and he also went for vascular bypass on the lower extremity. Basically, he is doing better, but is quite weak. We plan to discharge to the senior care. DISPOSITION: Skilled. ACTIVITY: As tolerated. DIET: Low sodium. MEDICATIONS: Please see the MRAD. TOTAL TIME ON DISCHARGE: 36 minutes. OSCAR SOLIS DO DR: AIDAN/brenda JOB#: [id number] / [id number]
[2016-11-04] MEDS ORDERED: HEPARIN PF 500 UNIT/5 ML DISP.SYRIN. IV ONE ×2 (12:18→13:30)
[2016-11-04] MEDS ORDERED: LIDOCAINE 1%/EPI 1:100,000 20 ML VIAL. ONE (12:18)
[2016-11-04] MEDS ORDERED: CEFAZOLIN 1GM IVPB FOR OMNI 50 ML IV ONE (12:52)
[2016-11-04] MEDS ORDERED: MIDAZOLAM HCL 2 MG/2 ML VIAL. ONE (12:52)
[2016-11-04] MEDS ORDERED: FENTANYL PF 100 MCG/2 ML VIAL. ONE (12:52)
[2016-11-04] MEDS ORDERED: IV NORMAL SALINE 1000ML BAG 1,000 ML IV PRN (12:59)
[2016-11-04] MEDS ORDERED: DIPHENHYDRAMINE 50 MG/ML VIAL IV PRN ×2 (13:00)
[2016-11-04] MEDS ORDERED: ALBUMIN HUMAN 25% 200 ML IV PRN (13:00)
[2016-11-04] MEDS ORDERED: DIALYSIS PATIENT. MC PRN (13:00)
[2016-11-04] MEDS ORDERED: ACETAMINOPHEN 500 MG TABLET PO PRN (13:00)
[2016-11-04 13:14] VITALS: BP 141/65
[2016-11-04] MEDS ORDERED: LIDOCAINE 1%/EPI 1:100,000 20 ML VIAL. INJ ONE (13:15)
[2016-11-04] MEDS ORDERED: MIDAZOLAM HCL 2 MG/2 ML VIAL. IV ONE (13:15)
[2016-11-04] MEDS ORDERED: FENTANYL PF 100 MCG/2 ML VIAL. IV ONE (13:15)
--- NOTE | 2016-11-04 13:27 | PDOC ---
BRIEF OPERATIVE NOTE Pre-Op Diagnosis infection Post-Op Diagnosis same Procedure Performed Tunnelled Power line Surgeon Luis Anesthesia Type: Local Findings Tunnelled Left IJ power line with good function Complications No immediate ASYA BETTS MD Nov 04, 2016 13:27
--- NOTE | 2016-11-04 14:10 | PDOC ---
PROGRESS NOTES Chief Complaint Chief Complaint LATE ENTRY, PT seen and examined 11/03 and 11/04 for discharge power port PICC by IR today for 1 mo of abx at SN[facility] following: Hypoxic respiratory failure - CHF, diastolic - RHETT, improving - suspected underlying CKD - Hypokalemia: improved - L foot osteomyelitis; s/p I&D on 10/[address] Luis. - DM2 - Afib - HTN, well controlled - COPD - acute diarrhea, resolved - metab acidosis, resolved - thrombocytopenia, chronic, stable; 80s-90s. suspect ITP - anemia, normocytic, normochromic History of Present Illness History of Present Illness to SNU no acute events cont. current placement pending, needing PT and OT and wound Vitals Vitals Vital Signs Date Time Temp Pulse Resp B/P Pulse Ox O2 Delivery O2 Flow Rate FiO2 11/04/16 13:27 16 95 Nasal Cannula 2.0 11/04/16 13:14 81 141/65 11/04/16 11:00 97.5 97.5 Physical Exam General: Alert, Oriented X3, Cooperative, No acute distress Heart: Regular rate, Other (IRR, no s3/s4) Lungs: Clear Abdomen: Normal bowel sounds, Soft Extremities: No cyanosis, Normal pulses Skin: No rashes, Other (left foot wound covered with wound vac. bilat distal foot amputations) Labs LABS Laboratory Tests Test 11/03/16 16:58 11/03/16 20:46 11/04/16 05:00 11/04/16 07:51 Glucose (Fingerstick) 148mg/dL (70-99) 143mg/dL (70-99) 152mg/dL (70-99) White Blood Count 6.0x10^3/uL (4.0-11.0) Red Blood Count 3.05x10^6/uL (4.30-5.70) Hemoglobin 8.7g/dL (13.0-17.5) Hematocrit 26.3% (39.0-53.0) Mean Corpuscular Volume 86fL (79-100) Mean Corpuscular Hemoglobin 29pg (25-35) Mean Corpuscular Hemoglobin Concent 33g/dL (31-37) Red Cell Distribution Width 14.6% (11.5-14.5) Platelet Count 138x10^3/uL (140-400) Neutrophils (%) (Auto) 67% (31-73) Lymphocytes (%) (Auto) 18% (24-48) Monocytes (%) (Auto) 10% (0-9) Eosinophils (%) (Auto) 2% (0-3) Basophils (%) (Auto) 2% (0-3) Neutrophils # (Auto) 4.0x10^3uL (1.8-7.7) Lymphocytes # (Auto) 1.1x10^3/uL (1.0-4.8) Monocytes # (Auto) 0.6x10^3/uL (0.0-1.1) Eosinophils # (Auto) 0.1x10^3/uL (0.0-0.7) Basophils # (Auto) 0.1x10^3/uL (0.0-0.2) Sodium Level 144mmol/L (136-145) Potassium Level 4.9mmol/L (3.5-5.1) Chloride Level 106mmol/L (98-107) Carbon Dioxide Level 29mmol/L (21-32) Anion Gap 9 (6-14) Blood Urea Nitrogen 52mg/dL (8-26) Creatinine 4.0mg/dL (0.7-1.3) Estimated GFR (Cockcroft-Gault) 14.9 Glucose Level 176mg/dL (70-99) Calcium Level 8.3mg/dL (8.5-10.1) Phosphorus Level 6.6mg/dL (2.6-4.7) Magnesium Level 2.3mg/dL (1.8-2.4) Albumin 1.8g/dL (3.4-5.0) Test 11/04/16 11:46 Glucose (Fingerstick) 134mg/dL (70-99) Assessment and Plan Assessmemt and Plan Problems Medical Problems: (1) Acute renal failure Status: Acute (2) Atrial fibrillation with RVR Status: Acute (3) Lactic acidosis Status: Acute (4) Severe sepsis Status: Acute (5) Uncontrolled diabetes mellitus Status: Acute Problems: Comment Review of Relevant I have reviewed the following items jovan (where applicable) has been applied. Labs Laboratory Tests Test 11/02/16 16:38 11/02/16 21:36 11/03/16 03:52 11/03/16 07:24 Glucose (Fingerstick) 313mg/dL (70-99) 178mg/dL (70-99) 175mg/dL (70-99) White Blood Count 5.8x10^3/uL (4.0-11.0) Red Blood Count 2.64x10^6/uL (4.30-5.70) Hemoglobin 7.5g/dL (13.0-17.5) Hematocrit 22.9% (39.0-53.0) Mean Corpuscular Volume 87fL (79-100) Mean Corpuscular Hemoglobin 28pg (25-35) Mean Corpuscular Hemoglobin Concent 33g/dL (31-37) Red Cell Distribution Width 15.5% (11.5-14.5) Platelet Count 136x10^3/uL (140-400) Neutrophils (%) (Auto) 69% (31-73) Lymphocytes (%) (Auto) 17% (24-48) Monocytes (%) (Auto) 11% (0-9) Eosinophils (%) (Auto) 2% (0-3) Basophils (%) (Auto) 1% (0-3) Neutrophils # (Auto) 4.1x10^3uL (1.8-7.7) Lymphocytes # (Auto) 1.0x10^3/uL (1.0-4.8) Monocytes # (Auto) 0.6x10^3/uL (0.0-1.1) Eosinophils # (Auto) 0.1x10^3/uL (0.0-0.7) Basophils # (Auto) 0.1x10^3/uL (0.0-0.2) Test 11/03/16 10:16 11/03/16 16:58 11/03/16 20:46 11/04/16 05:00 Glucose (Fingerstick) 172mg/dL (70-99) 148mg/dL (70-99) 143mg/dL (70-99) White Blood Count 6.0x10^3/uL (4.0-11.0) Red Blood Count 3.05x10^6/uL (4.30-5.70) Hemoglobin 8.7g/dL (13.0-17.5) Hematocrit 26.3% (39.0-53.0) Mean Corpuscular Volume 86fL (79-100) Mean Corpuscular Hemoglobin 29pg (25-35) Mean Corpuscular Hemoglobin Concent 33g/dL (31-37) Red Cell Distribution Width 14.6% (11.5-14.5) Platelet Count 138x10^3/uL (140-400) Neutrophils (%) (Auto) 67% (31-73) Lymphocytes (%) (Auto) 18% (24-48) Monocytes (%) (Auto) 10% (0-9) Eosinophils (%) (Auto) 2% (0-3) Basophils (%) (Auto) 2% (0-3) Neutrophils # (Auto) 4.0x10^3uL (1.8-7.7) Lymphocytes # (Auto) 1.1x10^3/uL (1.0-4.8) Monocytes # (Auto) 0.6x10^3/uL (0.0-1.1) Eosinophils # (Auto) 0.1x10^3/uL (0.0-0.7) Basophils # (Auto) 0.1x10^3/uL (0.0-0.2) Sodium Level 144mmol/L (136-145) Potassium Level 4.9mmol/L (3.5-5.1) Chloride Level 106mmol/L (98-107) Carbon Dioxide Level 29mmol/L (21-32) Anion Gap 9 (6-14) Blood Urea Nitrogen 52mg/dL (8-26) Creatinine 4.0mg/dL (0.7-1.3) Estimated GFR (Cockcroft-Gault) 14.9 Glucose Level 176mg/dL (70-99) Calcium Level 8.3mg/dL (8.5-10.1) Phosphorus Level 6.6mg/dL (2.6-4.7) Magnesium Level 2.3mg/dL (1.8-2.4) Albumin 1.8g/dL (3.4-5.0) Test 11/04/16 07:51 11/04/16 11:46 Glucose (Fingerstick) 152mg/dL (70-99) 134mg/dL (70-99) Laboratory Tests Test 11/03/16 16:58 11/03/16 20:46 11/04/16 05:00 11/04/16 07:51 Glucose (Fingerstick) 148mg/dL (70-99) 143mg/dL (70-99) 152mg/dL (70-99) White Blood Count 6.0x10^3/uL (4.0-11.0) Red Blood Count 3.05x10^6/uL (4.30-5.70) Hemoglobin 8.7g/dL (13.0-17.5) Hematocrit 26.3% (39.0-53.0) Mean Corpuscular Volume 86fL (79-100) Mean Corpuscular Hemoglobin 29pg (25-35) Mean Corpuscular Hemoglobin Concent 33g/dL (31-37) Red Cell Distribution Width 14.6% (11.5-14.5) Platelet Count 138x10^3/uL (140-400) Neutrophils (%) (Auto) 67% (31-73) Lymphocytes (%) (Auto) 18% (24-48) Monocytes (%) (Auto) 10% (0-9) Eosinophils (%) (Auto) 2% (0-3) Basophils (%) (Auto) 2% (0-3) Neutrophils # (Auto) 4.0x10^3uL (1.8-7.7) Lymphocytes # (Auto) 1.1x10^3/uL (1.0-4.8) Monocytes # (Auto) 0.6x10^3/uL (0.0-1.1) Eosinophils # (Auto) 0.1x10^3/uL (0.0-0.7) Basophils # (Auto) 0.1x10^3/uL (0.0-0.2) Sodium Level 144mmol/L (136-145) Potassium Level 4.9mmol/L (3.5-5.1) Chloride Level 106mmol/L (98-107) Carbon Dioxide Level 29mmol/L (21-32) Anion Gap 9 (6-14) Blood Urea Nitrogen 52mg/dL (8-26) Creatinine 4.0mg/dL (0.7-1.3) Estimated GFR (Cockcroft-Gault) 14.9 Glucose Level 176mg/dL (70-99) Calcium Level 8.3mg/dL (8.5-10.1) Phosphorus Level 6.6mg/dL (2.6-4.7) Magnesium Level 2.3mg/dL (1.8-2.4) Albumin 1.8g/dL (3.4-5.0) Test 11/04/16 11:46 Glucose (Fingerstick) 134mg/dL (70-99) Microbiology 10/25/16 Blood Culture - Final, Complete NO GROWTH AFTER 5 DAYS 10/21/16 Urine Culture - Final, Complete 10/21/16 Urine Culture Result 1 (HERBERT) - Final, Complete 10/22/16 Gram Stain - Final, Complete Medications Current Medications Diltiazem HCl 20 mg 20 mg 1X ONCE IVP Last administered on 10/20/16 13:35; Start 10/20/16 at 13:30; Stop 10/20/16 at 13:31; Status DC Diltiazem HCl 125 mg/Dextrose 125 ml @ 10 mls/hr 1X ONCE IV Last administered on 10/20/16 13:49; Start 10/20/16 at 13:30; Stop 10/20/16 at 19:37; Status DC Sodium Chloride (Iv Sodium Chloride 0.9% 1000ml Bag) 1,000 ml @ 100 mls/hr Q10H IV Last administered on 10/20/16 13:45; Start 10/20/16 at 13:30; Stop at 23:29; Status DC Diltiazem HCl (Cardizem) 20 mg 1X ONCE IVP Last administered on 10/20/16 14:16 ; Start 10/20/16 at 14:00; Stop 10/20/16 at 14:01; Status DC Vancomycin HCl (Vanco Per Pharmacy) 1 each PRN DAILY PRN MC SEE COMMENTS Last administered on 10/20/16 16:49; Start 10/20/16 at 14:45; Stop 10/21/16 at 07:42; Status DC Piperacillin Sod/ Tazobactam Sod 1 each 1 each PRN DAILY PRN MC SEE COMMENTS; Start 10/20/16 at 14:45; Stop 10/21/16 at 07:49; Status DC Vancomycin HCl 2 gm/Sodium Chloride 500 ml @ 250 mls/hr 1X ONCE IV Last administered on 10/20/16 15:45; Start 10/20/16 at 15:00; Stop 10/20/16 at 16:59; Status DC Piperacillin Sod/ Tazobactam Sod/ Sodium Chloride (Zosyn/Iv Sodium Chloride 0.9 % 50ml) 50 ml @ 100 mls/hr 1X ONCE IV Last administered on 10/20/16 15:04; Start 10/20/16 at 15:00; Stop 10/20/16 at 15:29; Status DC Ondansetron HCl (Zofran) 4 mg PRN Q8HRS PRN IV NAUSEA/VOMITING; Start 10/20/16 at 15:00; Stop 10/20/16 at 15:16; Status DC Fentanyl Citrate 50 mcg 50 mcg PRN Q2HR PRN IV PAIN; Start 10/20/16 at 15:00; Stop 10/21/16 at 14:59; Status DC Sodium Chloride (Iv Sodium Chloride 0.9% 1000ml Bag) 1,000 ml @ 100 mls/hr Q10H IV Last administered on 10/21/16 11:30; Start 10/20/16 at 15:30; Stop at 15:29; Status DC Acetaminophen (Tylenol) 650 mg PRN Q4HRS PRN PO FEVER; Start 10/20/16 at 15:00; Stop 10/21/16 at 14:59; Status DC Ondansetron HCl (Zofran) 4 mg PRN Q6HRS PRN IV NAUSEA/VOMITING; Start 10/20/16 at 15:12 Insulin Aspart (Novolog) 0-9 UNITS TIDWMEALS SQ Last administered on 11/04/16 09:28; Start 10/20/16 at 17:00 Dextrose 12.5 gm PRN Q15MIN PRN IV SEE COMMENTS Last administered on 10/26/16 23:42; Start 10/20/16 at 15:15 Docusate Sodium (Colace) 100 mg BID PO Last administered on 11/03/16 21:44; Start 10/20/16 at 21:00 Glimepiride (Amaryl) 2 mg BID PO ; Start 10/20/16 at 21:00; Status UNV Acetaminophen/ Hydrocodone Bitart (Lortab 7.5/325) 1 tab PRN Q3HRS PRN PO PAIN Last administered on 10/26/16 15:27; Start 10/20/16 at 15:15 Glimepiride (Amaryl) 4 mg BIDWMEALS PO Last administered on 10/20/16 17:32; Start 10/20/16 at 17:00; Stop 10/21/16 at 14:52; Status DC Insulin Detemir (Levemir) 30 units QHS SQ Last administered on 10/20/16 21:03; Start 10/20/16 at 21:00; Stop 10/21/16 at 14:52; Status DC Ondansetron HCl 4 mg 4 mg Q8HRS PO Last administered on 10/21/16 06:17; Start 10/20/16 at 22:00; Stop 10/21/16 at 17:24; Status DC Sodium Chloride 500 ml @ 500 mls/hr 1X ONCE IV ; Start 10/20/16 at 15:30; Stop 10/20/16 at 16:29; Status DC Piperacillin Sod/ Tazobactam Sod 2.25 gm/Sodium Chloride 50 ml @ 100 mls/hr Q6HRS IV Last administered on 10/27/16 06:03; Start 10/21/16 at 00:00; Stop at 07:43; Status DC Vancomycin HCl/ Sodium Chloride (Iv Sodium Chloride 0.9% 250ml) 250 ml @ 167 mls/hr Q24H IV ; Start 10/21/16 at 16:00; Stop 10/21/16 at 16:00; Status DC Vancomycin HCl 1 each 1 each 1X ONCE MC ; Start 10/22/16 at 15:30; Stop 10/22/16 at 15:31; Status Cancel Dopamine HCl/ Dextrose 250 ml @ 13.183 mls/ hr CONT PRN IV SEE I/O RECORD Last administered on 10/20/16 20:38; Start 10/20/16 at 19:30; Stop 10/28/16 at 15 :26; Status DC Digoxin (Lanoxin) 250 mcg 1X ONCE IV Last administered on 10/20/16 21:02; Start 10/20/16 at 20:45; Stop 10/20/16 at 20:46; Status DC Digoxin (Lanoxin) 250 mcg 1X ONCE IV Last administered on 10/21/16 01:48; Start 10/21/16 at 02:00; Stop 10/21/16 at 02:01; Status DC Digoxin 250 mcg 250 mcg 1X ONCE IV Last administered on 10/21/16 04:12; Start 10/21/16 at 04:15; Stop 10/21/16 at 04:16; Status DC Diltiazem HCl 125 mg/Dextrose 125 ml @ 0 mls/hr CONT PRN IV SEE I/O RECORD Last administered on 10/21/16 23:03; Start 10/21/16 at 04:15; Stop 10/22/16 at 09: 44; Status DC Linezolid 300 ml @ 300 mls/hr Q12HR IV Last administered on 10/22/16 20:18; Start 10/21/16 at 09:00; Stop 10/23/16 at 07:26; Status DC Magnesium Sulfate/ Dextrose 50 ml @ 25 mls/hr PRN DAILY PRN IV for Mag < 1.7 on am labs Last administered on 10/22/16 15:15; Start 10/21/16 at 09:45; Stop at 11:23; Status DC Albumin Human (Plasmanate) 500 ml @ 125 mls/hr 1X ONCE IV Last administered on 10/21/16 10:25; Start 10/21/16 at 09:45; Stop 10/21/16 at 13:44; Status DC Ondansetron HCl (Zofran) 4 mg PRN Q6HRS PRN IV Nausea; Start 10/21/16 at 10:00; Stop 10/22/16 at 09:59; Status DC Fentanyl Citrate (Fentanyl 2ml Vial) 25 mcg PRN Q5MIN PRN IV MILD PAIN; Start 10/21/16 at 10:00; Stop 10/22/16 at 09:59; Status DC Fentanyl Citrate (Fentanyl 2ml Vial) 50 mcg PRN Q5MIN PRN IV MODERATE PAIN; Start 10/21/16 at 10:00; Stop 10/22/16 at 09:59; Status DC Morphine Sulfate 1 mg 1 mg PRN Q10MIN PRN IV SEVERE PAIN; Start 10/21/16 at 10: 00; Stop 10/22/16 at 09:59; Status DC Lactated Ringer's (Iv Lactated Ringers) 1,000 ml @ 30 mls/hr Q24H IV ; Start at 09:50; Stop 10/21/16 at 21:49; Status DC Lidocaine HCl 2 ml 1X PRN PRN ID IV START; Start 10/21/16 at 10:00; Stop at 09:59; Status DC Hydromorphone HCl (Dilaudid) 0.5 mg PRN Q10MIN PRN IV SEV PAIN,Second choice; Start 10/21/16 at 10:00; Stop 10/22/16 at 09:59; Status DC Prochlorperazine Edisylate 5 mg 5 mg PACU PRN PRN IV NAUSEA; Start 10/21/16 at 10:00; Stop 10/22/16 at 09:59; Status DC Sodium Chloride (Iv Sodium Chloride 0.9% 500ml Bag) 500 ml @ 0 mls/hr PRN QID PRN IV UO< 30cc/hr over previous 6hrs; Start 10/21/16 at 10:15; Stop 10/21/16 at 17:27; Status DC Ondansetron HCl (Zofran) 4 mg PRN Q6HRS PRN IV Nausea; Start 10/21/16 at 11:30; Stop 10/22/16 at 11:29; Status DC Morphine Sulfate 1 mg 1 mg PRN Q10MIN PRN IV SEVERE PAIN; Start 10/21/16 at 11: 30; Stop 10/22/16 at 11:29; Status DC Lactated Ringer's (Iv Lactated Ringers) 1,000 ml @ 0 mls/hr Q0M IV ; Start 10/21 at 11:19; Stop 10/21/16 at 23:18; Status DC Lidocaine HCl 2 ml 1X PRN PRN ID IV START; Start 10/21/16 at 11:30; Stop at 11:29; Status DC Hydromorphone HCl (Dilaudid) 0.5 mg PRN Q10MIN PRN IV SEV PAIN,Second choice; Start 10/21/16 at 11:30; Stop 10/22/16 at 11:29; Status DC Prochlorperazine Edisylate (Compazine) 5 mg PACU PRN PRN IV NAUSEA; Start at 11:30; Stop 10/22/16 at 11:29; Status DC Atorvastatin Calcium (Lipitor) 20 mg QHS PO Last administered on 11/03/16 21: 44; Start 10/21/16 at 21:00 Aspirin (Ecotrin) 81 mg DAILYWBKFT PO Last administered on 11/04/16 09:19; Start 10/21/16 at 12:00 Ondansetron HCl (Zofran) 4 mg PRN Q6HRS PRN IV Nausea; Start 10/22/16 at 07:00; Stop 10/23/16 at 06:59; Status DC Morphine Sulfate 1 mg 1 mg PRN Q10MIN PRN IV SEVERE PAIN; Start 10/22/16 at 07: 00; Stop 10/23/16 at 06:59; Status DC Lactated Ringer's (Iv Lactated Ringers) 1,000 ml @ 30 mls/hr Q24H IV ; Start at 07:00; Stop 10/22/16 at 15:07; Status DC Lidocaine HCl 2 ml 1X PRN PRN ID IV START; Start 10/22/16 at 07:00; Stop at 06:59; Status DC Hydromorphone HCl (Dilaudid) 0.5 mg PRN Q10MIN PRN IV SEVERE PAIN, Second choice; Start 10/22/16 at 07:00; Stop 10/23/16 at 06:59; Status DC Prochlorperazine Edisylate (Compazine) 5 mg PACU PRN PRN IV NAUSEA; Start at 07:00; Stop 10/23/16 at 06:59; Status DC Aspirin (Ecotrin) 81 mg DAILYWBKFT PO ; Start 10/22/16 at 08:00; Status UNV Insulin Detemir (Levemir) 20 units QHS SQ ; Start 10/21/16 at 21:00; Stop at 08:29; Status DC Ondansetron HCl 4 mg 4 mg PRN Q8HRS PRN PO NAUSEA; Start 10/22/16 at 14:00 Sodium Chloride 1,000 ml @ 175 mls/hr Q5H43M IV Last administered on 05:30; Start 10/21/16 at 18:00; Stop 10/23/16 at 07:20; Status DC Dextrose 1,000 ml @ 75 mls/hr [id number] IV Last administered on 10/22/16 04:54; Start 10/22/16 at 04:45; Stop 10/22/16 at 15:05; Status DC Bupivacaine HCl (Sensorcaine Mpf 0.5%) 30 ml STK-MED ONCE .ROUTE ; Start at 06:45; Stop 10/22/16 at 06:46; Status DC Lidocaine HCl 20 ml 20 ml STK-MED ONCE .ROUTE ; Start 10/22/16 at 06:46; Stop 10/22/16 at 06:47; Status DC Propofol (Diprivan) 20 ml @ As Directed STK-MED ONCE IV ; Start 10/22/16 at 08:02 ; Stop 10/22/16 at 08:03; Status DC Lidocaine HCl 100 mg STK-MED ONCE .ROUTE ; Start 10/22/16 at 08:02; Stop 10/22/16 at 08:03; Status DC Ondansetron HCl (Zofran) 4 mg STK-MED ONCE .ROUTE ; Start 10/22/16 at 08:31; Stop 10/22/16 at 08:32; Status DC Phenylephrine HCl 1 mg STK-MED ONCE IV ; Start 10/22/16 at 08:31; Stop 10/22/16 at 08:32; Status DC Dexamethasone Sodium Phosphate (Decadron) 20 mg STK-MED ONCE .ROUTE ; Start 10/22 at 08:48; Stop 10/22/16 at 08:49; Status DC Sevoflurane (Ultane) 30 ml STK-MED ONCE IH ; Start 10/22/16 at 08:48; Stop at 08:49; Status DC Diltiazem HCl (Cardizem) 30 mg Q6HRS PO Last administered on 10/27/16 11:27; Start 10/22/16 at 10:00; Stop 10/27/16 at 12:31; Status DC Metoprolol Tartrate 5 mg 5 mg PRN Q6HRS PRN IVP ELEVATED BP, SEE COMMENTS; Start 10/22/16 at 09:45 Albumin Human (Plasmanate) 500 ml @ 125 mls/hr 1X ONCE IV Last administered on 10/22/16 11:20; Start 10/22/16 at 09:45; Stop 10/22/16 at 13:44; Status DC Info (Anti-Coagulation Monitoring By Pharmacy) 1 each PRN DAILY PRN MC SEE COMMENTS; Start 10/22/16 at 15:15; Status UNV Heparin Sodium (Porcine) 5,000 unit Q12HR SQ Last administered on 10/28/16 11: 08; Start 10/22/16 at 21:00; Stop 10/28/16 at 16:02; Status DC Loperamide HCl (Imodium) 2 mg PRN Q15MIN PRN PO DIARRHEA Last administered on 21:48; Start 10/22/16 at 20:00 Insulin Human Regular (Novolin R Vial) 10 unit 1X ONCE IV Last administered on 10/22/16 23:52; Start 10/22/16 at 01:00; Stop 10/22/16 at 23:46; Status DC Insulin Detemir (Levemir) 10 units 1X ONCE SQ Last administered on 10/22/16 23 :53; Start 10/22/16 at 23:45; Stop 10/22/16 at 23:46; Status DC Insulin Human Regular 10 unit 10 unit 1X ONCE IV Last administered on 00:09; Start 10/23/16 at 00:00; Stop 10/23/16 at 00:01; Status DC Sodium Chloride 38.75 meq/Sodium Bicarbonate 75 meq/Sterile Water 1,084.6875 ml @ 150 mls/hr CONT PRN IV SEE I/O RECORD Last administered on 10/24/16 07:12; Start 10/23/16 at 07:30 Albumin Human (Albuminar) 100 ml @ 100 mls/hr TID IV Last administered on 10/24 21:23; Start 10/23/16 at 09:00; Stop 10/24/16 at 21:59; Status DC Heparin Sodium (Porcine) 10,000 unit STK-MED ONCE .ROUTE ; Start 10/23/16 at 07: 55; Stop 10/23/16 at 07:56; Status DC Lidocaine/Sodium Bicarbonate 20 ml 20 ml STK-MED ONCE IJ ; Start 10/23/16 at 07: 55; Stop 10/23/16 at 07:56; Status DC Heparin Sodium/ Sodium Chloride 500 ml @ As Directed STK-MED ONCE .ROUTE ; Start 10/23/16 at 07:55; Stop 10/23/16 at 07:56; Status DC Insulin Detemir (Levemir) 20 units DAILY08 SQ ; Start 10/23/16 at 08:00; Stop at 08:01; Status DC Insulin Aspart (Novolog) 10 units TIDAC SQ Last administered on 10/23/16 17:46 ; Start 10/23/16 at 11:30; Stop 10/24/16 at 11:12; Status DC Insulin Detemir (Levemir) 30 units DAILY08 SQ Last administered on 10/23/16 09 :55; Start 10/23/16 at 08:30; Stop 10/24/16 at 11:12; Status DC Lidocaine/Sodium Bicarbonate (Buffered Lidocaine 1%) 3 ml 1X ONCE IJ Last administered on 10/23/16 08:48; Start 10/23/16 at 08:30; Stop 10/23/16 at 08:31 ; Status DC Heparin Sodium/ Sodium Chloride 60 unit 1X ONCE IV Last administered on 08:48; Start 10/23/16 at 08:30; Stop 10/23/16 at 08:31; Status DC Heparin Sodium (Porcine) 2,500 unit 1X ONCE INT CAT Last administered on 08:48; Start 10/23/16 at 08:30; Stop 10/23/16 at 08:31; Status DC Albuterol/ Ipratropium (Duoneb) 3 ml RTQID NEB Last administered on 11/04/16 11:29; Start 10/24/16 at 12:00 Albuterol/ Ipratropium (Duoneb) 3 ml 1X ONCE NEB Last administered on 09:11; Start 10/24/16 at 09:00; Stop 10/24/16 at 09:01; Status DC Budesonide (Pulmicort) 0.5 mg RTBID NEB Last administered on 11/04/16 07:18; Start 10/24/16 at 10:00 Insulin Aspart (Novolog) 7 units TIDAC SQ Last administered on 11/04/16 09:29 ; Start 10/24/16 at 11:30 Insulin Detemir (Levemir) 20 units DAILY08 SQ Last administered on 11/01/16 09 :37; Start 10/25/16 at 08:00; Stop 11/03/16 at 11:00; Status DC Potassium Chloride 20 meq 20 meq 1X ONCE PO Last administered on 10/24/16 18: 28; Start 10/24/16 at 12:00; Stop 10/24/16 at 12:01; Status DC Sodium Chloride 1,000 ml @ 1,000 mls/hr Q1H PRN IV hypotension; Start 10/24/16 at 13:00; Stop 10/24/16 at 18:59; Status DC Albumin Human (Albuminar) 200 ml @ 200 mls/hr 1X PRN PRN IV Hypotension; Start 10/24/16 at 14:00; Stop 10/24/16 at 19:59; Status DC Acetaminophen (Tylenol) 500 mg 1X PRN PRN PO MILD PAIN / TEMP; Start 10/24/16 at 14:00; Stop 10/25/16 at 13:59; Status DC Diphenhydramine HCl (Benadryl) 25 mg 1X PRN PRN IV ITCHING; Start 10/24/16 at 14:00; Stop 10/25/16 at 13:59; Status DC Diphenhydramine HCl (Benadryl) 25 mg 1X PRN PRN IV ITCHING; Start 10/24/16 at 14:00; Stop 10/25/16 at 13:59; Status DC Info (PHARMACY MONITORING -- do not chart) 1 each PRN DAILY PRN MC SEE COMMENTS ; Start 10/24/16 at 14:00; Stop 10/25/16 at 13:16; Status DC Potassium Chloride 20 meq 20 meq 1X ONCE PO ; Start 10/24/16 at 18:30; Stop 07/02 at 18:31; Status DC Amino Acids/ Electrolytes (Clinimix E 2.75%-5% Solution) 1,000 ml @ 55 mls/hr [id number] IV Last administered on 10/27/16 00:52; Start 10/25/16 at 12:00; Stop 10/27/16 at 14:10; Status DC Hydralazine HCl 10 mg 10 mg PRN Q4HRS PRN IVP ELEVATED BP, SEE COMMENTS Last administered on 10/27/16 06:05; Start 10/25/16 at 12:45 Sodium Chloride 1,000 ml @ 1,000 mls/hr Q1H PRN IV hypotension; Start 10/25/16 at 13:07; Stop 10/25/16 at 19:06; Status DC Albumin Human (Albuminar) 200 ml @ 200 mls/hr 1X PRN PRN IV Hypotension Last administered on 10/25/16 14:30; Start 10/25/16 at 13:15; Stop 10/25/16 at 19:14 ; Status DC Acetaminophen (Tylenol) 500 mg 1X PRN PRN PO MILD PAIN / TEMP; Start 10/25/16 at 13:15; Stop 10/26/16 at 13:14; Status DC Diphenhydramine HCl (Benadryl) 25 mg 1X PRN PRN IV ITCHING; Start 10/25/16 at 13:15; Stop 10/26/16 at 13:14; Status DC Diphenhydramine HCl (Benadryl) 25 mg 1X PRN PRN IV ITCHING; Start 10/25/16 at 13:15; Stop 10/26/16 at 13:14; Status DC Info (PHARMACY MONITORING -- do not chart) 1 each PRN DAILY PRN MC SEE COMMENTS ; Start 10/25/16 at 13:15 Famotidine (Pepcid) 20 mg QHS IVP Last administered on 10/26/16 21:17; Start 10/26/16 at 21:00; Stop 10/27/16 at 11:20; Status DC Furosemide 40 mg 40 mg [id number] IVP Last administered on 11/01/16 09:26; Start at 12:00; Stop 11/01/16 at 11:07; Status DC Sodium Chloride 1,000 ml @ 1,000 mls/hr Q1H PRN IV hypotension; Start 10/26/16 at 13:55; Stop 10/26/16 at 19:54; Status DC Sodium Chloride (Iv Sodium Chloride 0.9% 1000ml Bag) 1,000 ml @ 400 mls/hr Q2H30M PRN IV PATENCY; Start 10/26/16 at 13:55; Stop 10/27/16 at 01:54; Status DC Info 1 each 1 each PRN DAILY PRN MC SEE COMMENTS; Start 10/26/16 at 14:00; Status UNV Meropenem/Sodium Chloride (Merrem/Iv Sodium Chloride 0.9% 50ml) 50 ml @ 100 mls /hr Q6HRS IV Last administered on 10/28/16 06:00; Start 10/27/16 at 12:00; Stop 10/28/16 at 09:22; Status DC Metoprolol Tartrate (Lopressor) 25 mg BID PO Last administered on 11/03/16 21: 44; Start 10/27/16 at 12:00 Famotidine (Pepcid) 20 mg QHS PO Last administered on 11/03/16 21:44; Start at 21:00 Diltiazem HCl (Cardizem 24hr Cd) 180 mg DAILYBFRSUP PO Last administered on 17:18; Start 10/27/16 at 17:00 Regadenoson (Lexiscan) 0.4 mg 1X ONCE IV Last administered on 10/28/16 09:18 ; Start 10/28/16 at 07:45; Stop 10/28/16 at 07:46; Status DC Lactobacillus Acidophilus 1 tab 1 tab TIDWMEALS PO Last administered on 09:19; Start 10/28/16 at 12:00 Meropenem 500 mg/ Sodium Chloride 50 ml @ 100 mls/hr Q12HR IV Last administered on 10/29/16 21:36; Start 10/28/16 at 21:00; Stop 10/30/16 at 09:05 ; Status DC Sodium Chloride 1,000 ml @ 1,000 mls/hr Q1H PRN IV hypotension; Start 10/28/16 at 09:34; Stop 10/28/16 at 15:33; Status DC Albumin Human (Albuminar) 200 ml @ 200 mls/hr 1X PRN PRN IV Hypotension; Start 10/28/16 at 09:45; Stop 10/28/16 at 15:44; Status DC Acetaminophen (Tylenol) 500 mg 1X PRN PRN PO MILD PAIN / TEMP; Start 10/28/16 at 09:45; Stop 10/28/16 at 16:02; Status DC Diphenhydramine HCl (Benadryl) 25 mg 1X PRN PRN IV ITCHING; Start 10/28/16 at 09:45; Stop 10/28/16 at 16:02; Status DC Diphenhydramine HCl (Benadryl) 25 mg 1X PRN PRN IV ITCHING; Start 10/28/16 at 09:45; Stop 10/28/16 at 16:02; Status DC Sodium Chloride (Normal Saline Flush) 10 ml 1X PRN PRN IV AP catheter pack; Start 10/28/16 at 09:45; Stop 10/28/16 at 16:02; Status DC Sodium Chloride (Normal Saline Flush) 10 ml 1X PRN PRN IV TOOL DRAWING CHECKER catheter pack; Start 10/28/16 at 09:45; Stop 10/28/16 at 16:02; Status DC Labetalol HCl 10 mg 10 mg PRN Q1HR PRN IVP SBP > 180; Start 10/28/16 at 09:45; Stop 10/28/16 at 16:02; Status DC Sodium Chloride (Iv Sodium Chloride 0.9% 1000ml Bag) 1,000 ml @ 400 mls/hr Q2H30M PRN IV PATENCY; Start 10/28/16 at 09:34; Stop 10/28/16 at 21:33; Status DC Info 1 each 1 each PRN DAILY PRN MC SEE COMMENTS; Start 10/28/16 at 09:45; Status UNV Sodium Chloride (Iv Sodium Chloride 0.9% 1000ml Bag) 1,000 ml @ 1,000 mls/hr Q1H PRN IV hypotension; Start 10/28/16 at 12:47; Stop 10/28/16 at 18:46; Status UNV Diphenhydramine HCl (Benadryl) 25 mg 1X PRN PRN IV ITCHING; Start 10/28/16 at 13:00; Stop 10/29/16 at 12:59; Status UNV Diphenhydramine HCl (Benadryl) 25 mg 1X PRN PRN IV ITCHING; Start 10/28/16 at 13:00; Stop 10/29/16 at 12:59; Status UNV Sodium Chloride (Normal Saline Flush) 10 ml 1X PRN PRN IV AP catheter pack; Start 10/28/16 at 13:00; Stop 10/29/16 at 12:59; Status UNV Sodium Chloride 10 ml 10 ml 1X PRN PRN IV TOOL DRAWING CHECKER catheter pack; Start 10/28/16 at 13:00; Stop 10/29/16 at 12:59; Status UNV Sodium Chloride (Iv Sodium Chloride 0.9% 1000ml Bag) 1,000 ml @ 400 mls/hr Q2H30M PRN IV PATENCY; Start 10/28/16 at 12:47; Stop 10/29/16 at 00:46; Status UNV Info (PHARMACY MONITORING -- do not chart) 1 each PRN DAILY PRN MC SEE COMMENTS ; Start 10/28/16 at 13:00; Status UNV Apixaban 5 mg 5 mg BID PO Last administered on 11/04/16 09:20; Start 10/28/16 at 21:00 Sodium Chloride 1,000 ml @ 1,000 mls/hr Q1H PRN IV hypotension; Start 10/30/16 at 08:30; Stop 10/30/16 at 15:00; Status DC Albumin Human 200 ml @ 200 mls/hr 1X PRN PRN IV Hypotension; Start 10/30/16 at 08:30; Stop 10/30/16 at 14:29; Status DC Sodium Chloride (Iv Sodium Chloride 0.9% 1000ml Bag) 1,000 ml @ 400 mls/hr Q2H30M PRN IV PATENCY; Start 10/30/16 at 08:21; Stop 10/30/16 at 16:00; Status DC Info 1 each 1 each PRN DAILY PRN MC SEE COMMENTS; Start 10/30/16 at 08:30; Status UNV Piperacillin Sod/ Tazobactam Sod/ Sodium Chloride (Zosyn/Iv Sodium Chloride 0.9 % 50ml) 50 ml @ 100 mls/hr Q6HRS IV Last administered on 11/04/16 06:12; Start 10/30/16 at 12:00 Info (Anti-Coagulation Monitoring By Pharmacy) 1 each PRN DAILY PRN MC SEE COMMENTS Last administered on 11/02/16 13:20; Start 10/30/16 at 12:45 Heparin Sodium (Porcine) 10,000 unit STK-MED ONCE .ROUTE ; Start 10/30/16 at 13: 21; Stop 10/30/16 at 13:22; Status DC Lidocaine/ Epinephrine 20 ml 20 ml STK-MED ONCE .ROUTE ; Start 10/30/16 at 13:21 ; Stop 10/30/16 at 13:22; Status DC Heparin Sodium/ Sodium Chloride 500 ml @ As Directed STK-MED ONCE .ROUTE ; Start 10/30/16 at 13:21; Stop 10/30/16 at 13:22; Status DC Midazolam HCl (Versed) 2 mg STK-MED ONCE .ROUTE ; Start 10/30/16 at 13:33; Stop 10/30/16 at 13:34; Status DC Fentanyl Citrate 100 mcg 100 mcg STK-MED ONCE .ROUTE ; Start 10/30/16 at 13:34; Stop 10/30/16 at 13:35; Status DC Cefazolin Sodium (Ancef 1gm Ivpb For Omni) 0 ml @ As Directed STK-MED ONCE IV ; Start 10/30/16 at 13:34; Stop 10/30/16 at 13:35; Status DC Heparin Sodium/ Sodium Chloride 1,000 unit 1X ONCE IART Last administered on 14:18; Start 10/30/16 at 14:00; Stop 10/30/16 at 14:12; Status DC Midazolam HCl (Versed) 2 mg 1X ONCE IV Last administered on 10/30/16 14:18; Start 10/30/16 at 14:00; Stop 10/30/16 at 14:12; Status DC Fentanyl Citrate (Fentanyl 2ml Vial) 100 mcg 1X ONCE IV Last administered on 14:19; Start 10/30/16 at 14:00; Stop 10/30/16 at 14:12; Status DC Lidocaine/ Epinephrine (Xylocaine 1%-Epi 1:100,000) 9 ml 1X ONCE IJ Last administered on 10/30/16 14:18; Start 10/30/16 at 14:00; Stop 10/30/16 at 14:12 ; Status DC Heparin Sodium (Porcine) 4,300 unit 1X ONCE INT CAT Last administered on 14:18; Start 10/30/16 at 14:00; Stop 10/30/16 at 14:12; Status DC Furosemide 40 mg 40 mg DAILY PO Last administered on 11/03/16 08:48; Start at 09:00 Sodium Chloride (Iv Sodium Chloride 0.9% 1000ml Bag) 1,000 ml @ 1,000 mls/hr Q1H PRN IV hypotension; Start 11/02/16 at 09:07; Stop 11/02/16 at 15:06; Status DC Sodium Chloride (Normal Saline Flush) 2.1 ml 1X PRN PRN IV AP catheter pack; Start 11/02/16 at 09:15; Stop 11/03/16 at 09:14; Status DC Sodium Chloride (Normal Saline Flush) 2.2 ml 1X PRN PRN IV TOOL DRAWING CHECKER catheter pack; Start 11/02/16 at 09:15; Stop 11/03/16 at 09:14; Status DC Info (PHARMACY MONITORING -- do not chart) 1 each PRN DAILY PRN MC SEE COMMENTS ; Start 11/02/16 at 09:15; Stop 11/02/16 at 14:41; Status DC Insulin Detemir (Levemir) 12 units DAILY08 SQ ; Start 11/04/16 at 08:00; Stop at 08:00; Status DC Insulin Detemir 20 units 20 units DAILY08 SQ ; Start 11/04/16 at 08:00; Status Cancel Magnesium Sulfate/ Dextrose (Magnesium Sulfate PREMIX 2GM) 50 ml @ 25 mls/hr PRN DAILY PRN IV for Mag < 1.7 on am labs; Start 11/03/16 at 11:30 Acetaminophen (Tylenol) 650 mg 1X ONCE PO ; Start 11/03/16 at 12:30; Stop 11/03 at 12:30; Status DC Acetaminophen (Tylenol) 650 mg PRN 1X PRN PO PRIOR TO BLOOD Last administered on 11/03/16t 14:56; Start 11/03/16 at 12:30; Stop 11/04/16 at 12:29; Status DC Insulin Detemir (Levemir) 12 units DAILY08 SQ Last administered on 11/04/16t 09 :29; Start 11/04/16 at 08:00 Nystatin (Nystop) 1 jluis BID TP ; Start 11/04/16 at 10:30 Heparin Sodium (Porcine) (Hep Lock Adult) 500 unit STK-MED ONCE IV ; Start 11/04 at 12:18; Stop 11/04/16 at 12:19; Status DC Lidocaine/ Epinephrine 20 ml 20 ml STK-MED ONCE .ROUTE ; Start 11/04/16 at 12:18 ; Stop 11/04/16 at 12:19; Status DC Heparin Sodium/ Sodium Chloride 500 ml @ As Directed STK-MED ONCE .ROUTE ; Start 11/04/16 at 12:19; Stop 11/04/16 at 12:20; Status DC Midazolam HCl (Versed) 2 mg STK-MED ONCE .ROUTE ; Start 11/04/16 at 12:52; Stop 11/04/16 at 12:53; Status DC Fentanyl Citrate 100 mcg 100 mcg STK-MED ONCE .ROUTE ; Start 11/04/16 at 12:52; Stop 11/04/16 at 12:53; Status DC Cefazolin Sodium 50 ml @ As Directed STK-MED ONCE IV ; Start 11/04/16 at 12:52; Stop 11/04/16 at 12:53; Status DC Sodium Chloride 1,000 ml @ 1,000 mls/hr Q1H PRN IV hypotension; Start 11/04/16 at 12:59; Stop 11/04/16 at 18:58 Albumin Human (Albuminar) 200 ml @ 200 mls/hr 1X PRN PRN IV Hypotension; Start 11/04/16 at 13:00; Stop 11/04/16 at 18:59 Acetaminophen (Tylenol) 500 mg 1X PRN PRN PO MILD PAIN / TEMP; Start 11/04/16 at 13:00; Stop 11/05/16 at 12:59 Diphenhydramine HCl (Benadryl) 25 mg 1X PRN PRN IV ITCHING; Start 11/04/16 at 13:00; Stop 11/05/16 at 12:59 Diphenhydramine HCl (Benadryl) 25 mg 1X PRN PRN IV ITCHING; Start 11/04/16 at 13:00; Stop 11/05/16 at 12:59 Info (PHARMACY MONITORING -- do not chart) 1 each PRN DAILY PRN MC SEE COMMENTS ; Start 11/04/16 at 13:00; Stop 11/04/16 at 13:09; Status DC Heparin Sodium/ Sodium Chloride 1,000 unit 1X ONCE IART Last administered on t 13:27; Start 11/04/16 at 13:15; Stop 11/04/16 at 13:17; Status DC Midazolam HCl (Versed) 2 mg 1X ONCE IV ; Start 11/04/16 at 13:15; Stop at 13:17; Status DC Fentanyl Citrate (Fentanyl 2ml Vial) 100 mcg 1X ONCE IV Last administered on 13:27; Start 11/04/16 at 13:15; Stop 11/04/16 at 13:17; Status DC Lidocaine/ Epinephrine (Xylocaine 1%-Epi 1:100,000) 20 ml 1X ONCE INJ Last administered on 11/04/16 13:26; Start 11/04/16 at 13:15; Stop 11/04/16 at 13:17 ; Status DC Heparin Sodium (Porcine) (Hep Lock Adult) 500 unit 1X ONCE IV Last administered on 11/04/16 13:27; Start 11/04/16 at 13:30; Stop 11/04/16 at 13:31 ; Status DC Active Scripts Active Famotidine 20 Mg Tablet 20 Mg PO HS Levemir Flextouch (Insulin Detemir) 100 Unit/1 Ml Insuln.pen 20 Units SQ DAILY08 30 Days Lasix (Furosemide) 40 Mg Tablet 40 Mg PO BID Reported Zofran Odt (Ondansetron) 8 Mg Tab.rapdis 1 Tab PO Q8HRS Colace (Docusate Sodium) 100 Mg Capsule 1 Cap PO BID Hydrocodone-Apap 7.5-325 (Hydrocodone Bit/Acetaminophen) 1 Each Tablet 1 Tab PO Q3HRS PRN Vitals/I & O Vital Sign - Last 24 Hours 11/03/16 11/03/16 11/03/16 11/03/16 14:48 15:10 15:24 15:26 Temp 98.2 98.2 97.8 98.2 98.2 97.8 Pulse 84 84 84 Resp 18 B/P 112/56 112/56 121/58 Pulse Ox 96 96 O2 Delivery Nasal Cannula Nasal Cannula O2 Flow Rate 1.0 11/03/16 11/03/16 11/03/16 11/03/16 16:26 17:18 17:26 18:40 Temp 98.6 97.8 98.6 98.6 97.8 98.6 Pulse 84 84 87 Resp 18 B/P 135/60 134/60 130/60 135/60 O2 Delivery Nasal Cannula O2 Flow Rate 1.0 11/03/16 11/03/16 11/03/16 11/03/16 20:00 20:56 20:56 21:44 Pulse 87 B/P 135/60 Pulse Ox 96 96 O2 Delivery Nasal Cannula Nasal Cannula Nasal Cannula O2 Flow Rate 2.0 1.0 1.0 11/03/16 11/04/16 11/04/16 11/04/16 23:26 02:51 07:00 07:20 Temp 97.5 98.0 97.7 97.5 98.0 97.7 Pulse 76 80 94 Resp 20 20 18 B/P 124/62 115/59 150/69 Pulse Ox 92 92 92 94 O2 Delivery Nasal Cannula Nasal Cannula Nasal Cannula Nasal Cannula O2 Flow Rate 1.0 1.0 1.0 1.0 11/04/16 11/04/16 11/04/16 11/04/16 11:00 11:30 13:14 13:27 Temp 97.5 97.5 Pulse 92 81 Resp 20 16 16 B/P 125/69 141/65 Pulse Ox 90 95 95 O2 Delivery Nasal Cannula Nasal Cannula Nasal Cannula Nasal Cannula O2 Flow Rate 1.0 1.0 2.0 2.0 Intake and Output 11/03/16 11/03/16 11/04/16 15:00 23:00 07:00 Intake Total 750 ml 1750 ml 0 ml Output Total 150 ml Balance 750 ml 1750 ml -150 ml BEKA CARRION MD Nov 04, 2016 14:10
--- NOTE | 2016-11-04 14:15 | PDOC ---
Dialysis Progress Note Dialysis Note Dialysis Note Seen on Hemodialysis, tolerating treatment Well Vitals on Hemodialysis: 147/73 84 afeb General Appearance: Asleep Alert Oriented x 3 Neck: No JVD or JVP Chest: CTA [place] Heart: S1 S2 Abdomen - Soft NTND Extremities - No Edema ARF/ ATN + CKD III Dialysis as below F 180 NR 3.0 Hrs 3 K 2.5 Ca 140 Na 30 HC03 Qb 350 + Qd 500+ Heparin 0 Units Uf 2-3 Kgs or to dry weight as tolerated May give 25-50 gms of 25% Albumin if needed to maintain Hemodynamic stability Treatment plan reviewed and discussed with slip maker Vitals Vital Signs Vital Signs Date Time Temp Pulse Resp B/P Pulse Ox O2 Delivery O2 Flow Rate FiO2 11/04/16 13:27 16 95 Nasal Cannula 2.0 11/04/16 13:14 81 141/65 11/04/16 11:00 97.5 97.5 Labs Last Labs Laboratory Tests Test 11/02/16 16:38 11/02/16 21:36 11/03/16 03:52 11/03/16 07:24 Glucose (Fingerstick) 313mg/dL (70-99) 178mg/dL (70-99) 175mg/dL (70-99) White Blood Count 5.8x10^3/uL (4.0-11.0) Red Blood Count 2.64x10^6/uL (4.30-5.70) Hemoglobin 7.5g/dL (13.0-17.5) Hematocrit 22.9% (39.0-53.0) Mean Corpuscular Volume 87fL (79-100) Mean Corpuscular Hemoglobin 28pg (25-35) Mean Corpuscular Hemoglobin Concent 33g/dL (31-37) Red Cell Distribution Width 15.5% (11.5-14.5) Platelet Count 136x10^3/uL (140-400) Neutrophils (%) (Auto) 69% (31-73) Lymphocytes (%) (Auto) 17% (24-48) Monocytes (%) (Auto) 11% (0-9) Eosinophils (%) (Auto) 2% (0-3) Basophils (%) (Auto) 1% (0-3) Neutrophils # (Auto) 4.1x10^3uL (1.8-7.7) Lymphocytes # (Auto) 1.0x10^3/uL (1.0-4.8) Monocytes # (Auto) 0.6x10^3/uL (0.0-1.1) Eosinophils # (Auto) 0.1x10^3/uL (0.0-0.7) Basophils # (Auto) 0.1x10^3/uL (0.0-0.2) Test 11/03/16 10:16 11/03/16 16:58 11/03/16 20:46 11/04/16 05:00 Glucose (Fingerstick) 172mg/dL (70-99) 148mg/dL (70-99) 143mg/dL (70-99) White Blood Count 6.0x10^3/uL (4.0-11.0) Red Blood Count 3.05x10^6/uL (4.30-5.70) Hemoglobin 8.7g/dL (13.0-17.5) Hematocrit 26.3% (39.0-53.0) Mean Corpuscular Volume 86fL (79-100) Mean Corpuscular Hemoglobin 29pg (25-35) Mean Corpuscular Hemoglobin Concent 33g/dL (31-37) Red Cell Distribution Width 14.6% (11.5-14.5) Platelet Count 138x10^3/uL (140-400) Neutrophils (%) (Auto) 67% (31-73) Lymphocytes (%) (Auto) 18% (24-48) Monocytes (%) (Auto) 10% (0-9) Eosinophils (%) (Auto) 2% (0-3) Basophils (%) (Auto) 2% (0-3) Neutrophils # (Auto) 4.0x10^3uL (1.8-7.7) Lymphocytes # (Auto) 1.1x10^3/uL (1.0-4.8) Monocytes # (Auto) 0.6x10^3/uL (0.0-1.1) Eosinophils # (Auto) 0.1x10^3/uL (0.0-0.7) Basophils # (Auto) 0.1x10^3/uL (0.0-0.2) Sodium Level 144mmol/L (136-145) Potassium Level 4.9mmol/L (3.5-5.1) Chloride Level 106mmol/L (98-107) Carbon Dioxide Level 29mmol/L (21-32) Anion Gap 9 (6-14) Blood Urea Nitrogen 52mg/dL (8-26) Creatinine 4.0mg/dL (0.7-1.3) Estimated GFR (Cockcroft-Gault) 14.9 Glucose Level 176mg/dL (70-99) Calcium Level 8.3mg/dL (8.5-10.1) Phosphorus Level 6.6mg/dL (2.6-4.7) Magnesium Level 2.3mg/dL (1.8-2.4) Albumin 1.8g/dL (3.4-5.0) Test 11/04/16 07:51 11/04/16 11:46 Glucose (Fingerstick) 152mg/dL (70-99) 134mg/dL (70-99) Laboratory Tests Test 11/03/16 16:58 11/03/16 20:46 11/04/16 05:00 11/04/16 07:51 Glucose (Fingerstick) 148mg/dL (70-99) 143mg/dL (70-99) 152mg/dL (70-99) White Blood Count 6.0x10^3/uL (4.0-11.0) Red Blood Count 3.05x10^6/uL (4.30-5.70) Hemoglobin 8.7g/dL (13.0-17.5) Hematocrit 26.3% (39.0-53.0) Mean Corpuscular Volume 86fL (79-100) Mean Corpuscular Hemoglobin 29pg (25-35) Mean Corpuscular Hemoglobin Concent 33g/dL (31-37) Red Cell Distribution Width 14.6% (11.5-14.5) Platelet Count 138x10^3/uL (140-400) Neutrophils (%) (Auto) 67% (31-73) Lymphocytes (%) (Auto) 18% (24-48) Monocytes (%) (Auto) 10% (0-9) Eosinophils (%) (Auto) 2% (0-3) Basophils (%) (Auto) 2% (0-3) Neutrophils # (Auto) 4.0x10^3uL (1.8-7.7) Lymphocytes # (Auto) 1.1x10^3/uL (1.0-4.8) Monocytes # (Auto) 0.6x10^3/uL (0.0-1.1) Eosinophils # (Auto) 0.1x10^3/uL (0.0-0.7) Basophils # (Auto) 0.1x10^3/uL (0.0-0.2) Sodium Level 144mmol/L (136-145) Potassium Level 4.9mmol/L (3.5-5.1) Chloride Level 106mmol/L (98-107) Carbon Dioxide Level 29mmol/L (21-32) Anion Gap 9 (6-14) Blood Urea Nitrogen 52mg/dL (8-26) Creatinine 4.0mg/dL (0.7-1.3) Estimated GFR (Cockcroft-Gault) 14.9 Glucose Level 176mg/dL (70-99) Calcium Level 8.3mg/dL (8.5-10.1) Phosphorus Level 6.6mg/dL (2.6-4.7) Magnesium Level 2.3mg/dL (1.8-2.4) Albumin 1.8g/dL (3.4-5.0) Test 11/04/16 11:46 Glucose (Fingerstick) 134mg/dL (70-99) Assessment Assessment Problems Medical Problems: (1) Acute renal failure Status: Acute (2) Atrial fibrillation with RVR Status: Acute (3) Lactic acidosis Status: Acute (4) Severe sepsis Status: Acute (5) Uncontrolled diabetes mellitus Status: Acute Problems: Plan Plan of Care Problems Medical Problems: (1) Acute renal failure Status: Acute (2) Atrial fibrillation with RVR Status: Acute (3) Lactic acidosis Status: Acute (4) Severe sepsis Status: Acute (5) Uncontrolled diabetes mellitus Status: Acute ANJELICA DE LEON MD Nov 04, 2016 14:15
--- NOTE | 2016-11-04 14:47 | RAD ---
Procedure: Tunneled power line placement via the left internal jugular vein using ultrasound for vascular access and fluoroscopy for guidance Clinical Indication: 71-year-old requiring long-term venous access Sedation: Local anesthesia only Antibiotics: Antibiotic was administered intravenously within 1 hour of the procedure start time. Exposure: Kerma-Area Product: 1 Gycm2 OR Contrast: None Sterility: All elements of maximal sterile barrier technique including the use of a cap, mask, sterile gown, sterile gloves, large sterile sheet, appropriate hand hygiene, and 2% chlorhexidine for cutaneous antisepsis (or acceptable alternative antiseptic per current guidelines) were followed for this procedure. Consent: The procedure was explained in its entirety to the patient or the patients designated account services representative by a member of the treatment team, including a discussion of the risks, benefits and commonly accepted alternatives to the procedure, as well as the expected consequences of no therapy whatsoever. Discussion of the risks included, but was not limited to, those that are most frequent and those that are rare but possibly severe or life-threatening, as well as the possibility of unforeseen complications. Technique and Findings: Following informed consent, the patient was prepped and draped in usual sterile fashion. 1% lidocaine was used to achieve local anesthesia over the left neck after ultrasound interrogation revealed patency and compressibility of the left internal jugular vein. A hardcopy ultrasound image was recorded as a 21-gauge micropuncture needle was used to gain access to this vein. The needle was exchanged over wire for a 5 [place] peel-away sheath. The skin over the left chest wall was copiously anesthetized with 1% lidocaine and a small dermatotomy was made. A tunneled power line was then tunneled subcutaneously towards the neck dermatotomy then deployed under fluoroscopic guidance through the peel-away sheath such that the distal tip resided at the cavoatrial junction. Both lumens flushed and aspirated with ease. This catheter was then packed with heparin, capped, and sutured to the skin. The small neck dermatotomy was closed with Dermabond. Complications: No immediate Impression: 1. Ultrasound and fluoroscopic guided placement of a left IJ tunneled power line as described.
[2016-11-04] MEDS ORDERED: CALCIUM ACETATE 667 MG CAPSULE PO SCH (17:00)
[2016-11-04] MEDS: DILTIAZEM HCL 180 MG CAP.ER.24H PO SCH (17:00)
== END 2016-11-04 17:30 | DRG 853 ==
LOC: ER 12:54 → 2 NORTH 14:25 → 1 WEST ICU 10-21 05:43 → 5 SOUTH 10-23 16:00 → 1 WEST ICU 10-23 16:53 → 5 SOUTH 10-23 16:54 → 1 WEST ICU 10-24 10:47 → 5 NORTH 10-27 18:30
PROVIDERS: ADMIT Internal Medicine; ATTEND Internal Medicine
PROC: 0JBR0ZZ Excision of Left Foot Subcutaneous Tissue and Fascia, Open Approach (ICD-10-PCS; principal; 2016-10-22 08:30)
PROC: 05HM33Z Insertion of Infusion Device into Right Internal Jugular Vein, Percutaneous Approach (ICD-10-PCS; 2016-10-23)
PROC: B543ZZA Ultrasonography of Right Jugular Veins, Guidance (ICD-10-PCS; 2016-10-23)
PROC: 5A09457 Assistance with Respiratory Ventilation, 24-96 Consecutive Hours, Continuous Positive Airway Pressure (ICD-10-PCS; 2016-10-26)
PROC: 05PYX3Z Removal of Infusion Device from Upper Vein, External Approach (ICD-10-PCS; 2016-10-30)
PROC: 05HM33Z Insertion of Infusion Device into Right Internal Jugular Vein, Percutaneous Approach (ICD-10-PCS; 2016-10-30)
PROC: B5131ZA Fluoroscopy of Right Jugular Veins using Low Osmolar Contrast, Guidance (ICD-10-PCS; 2016-10-30)
PROC: 5A1D60Z (ICD-10-PCS; 2016-11-02)
PROC: 30233N1 Transfusion of Nonautologous Red Blood Cells into Peripheral Vein, Percutaneous Approach (ICD-10-PCS; 2016-11-03)
PROC: 05HN33Z Insertion of Infusion Device into Left Internal Jugular Vein, Percutaneous Approach (ICD-10-PCS; 2016-11-04)
PROC: B5141ZA Fluoroscopy of Left Jugular Veins using Low Osmolar Contrast, Guidance (ICD-10-PCS; 2016-11-04)
DX: A41.01 Sepsis due to Methicillin susceptible Staphylococcus aureus (principal); N17.0 Acute kidney failure with tubular necrosis; E43 Unspecified severe protein-calorie malnutrition; I50.31 Acute diastolic (congestive) heart failure; J96.01 Acute respiratory failure with hypoxia; N18.6 End stage renal disease; R65.21 Severe sepsis with septic shock; D68.9 Coagulation defect, unspecified; E87.2 Acidosis; I13.2 Hypertensive heart and chronic kidney disease with heart failure and with stage 5 chronic kidney disease, or end stage renal disease; M86.9 Osteomyelitis, unspecified; B95.0 Streptococcus, group A, as the cause of diseases classified elsewhere; D64.9 Anemia, unspecified; D69.6 Thrombocytopenia, unspecified; E11.22 Type 2 diabetes mellitus with diabetic chronic kidney disease; E11.42 Type 2 diabetes mellitus with diabetic polyneuropathy; E11.628 Type 2 diabetes mellitus with other skin complications; E11.649 Type 2 diabetes mellitus with hypoglycemia without coma; E11.65 Type 2 diabetes mellitus with hyperglycemia; E11.69 Type 2 diabetes mellitus with other specified complication; E86.0 Dehydration; E87.6 Hypokalemia; F17.200 Nicotine dependence, unspecified, uncomplicated; G89.29 Other chronic pain; H54.7 Unspecified visual loss; I48.0 Paroxysmal atrial fibrillation; I73.9 Peripheral vascular disease, unspecified; J44.9 Chronic obstructive pulmonary disease, unspecified; K59.00 Constipation, unspecified; L08.9 Local infection of the skin and subcutaneous tissue, unspecified; Z79.4 Long term (current) use of insulin; Z80.0 Family history of malignant neoplasm of digestive organs; Z82.49 Family history of ischemic heart disease and other diseases of the circulatory system; Z83.3 Family history of diabetes mellitus; Z89.422 Acquired absence of other left toe(s); Z99.2 Dependence on renal dialysis; Z68.23 Body mass index [BMI] 23.0-23.9, adult; Z88.7 Allergy status to serum and vaccine
CPT/HCPCS: 36415; 36556; 36558; 36600; 71010; 73620; 76770; 76937; 77001; 78452; 80048; 80061; 80069; 80076; 80202; 81001; 82550; 82553; 82570; 82607; 82728; 82746; 82805; 82947; 83036; 83540; 83550; 83605; 83735; 83880; 84156; 84300; 84443; 84484; 85007; 85018; 85027; 85045; 85610; 85651; 86704; 86706; 86850; 86900; 86901; 86920; 87040; 87071; 87075; 87086; 87186; 87205; 87324; 87340; 87341; 87641; 93005; 93017; 93306; 94250; 94640; 94660; 94760; 96365; 96366; 96374; 96375; 96376; 99406; A4215; A9500; C1750; C1769; C1892; J0360; J1100; J1160; J1265; J1815; J1940; J2020; J2185; J2250; J2370; J2405; J2543; J2704; J2785; J3010; J3370; J3490; J7030; J7040; J7042; J7060; J7620; P9016; P9045; P9046; Q0162; S0028; 97110; 97530; 97605; 99291-25

== ENCOUNTER → 2016-11-12 | Outpatient (CLI) | payer OTHER ==
[2016-11-04 11:00] VITALS: BP 125/69
[~2016-11-12] MED LIST changes: +FAMO20TA5 PO; +FURO-68 PO; +INSU100I27 SQ
== END | disposition home or self-care (01) ==
LOC: PMGWOUND 12:15
PROVIDERS: ATTEND Emergency Medicine Undersea and Hyperbaric Medicine
DX: T87.89 Other complications of amputation stump (principal); E11.621 Type 2 diabetes mellitus with foot ulcer; L97.524 Non-pressure chronic ulcer of other part of left foot with necrosis of bone; E11.69 Type 2 diabetes mellitus with other specified complication; M86.8X7 Other osteomyelitis, ankle and foot; Z89.431 Acquired absence of right foot; F17.210 Nicotine dependence, cigarettes, uncomplicated; Y83.5 Amputation of limb(s) as the cause of abnormal reaction of the patient, or of later complication, without mention of misadventure at the time of the procedure
CPT/HCPCS: 11042; 97605

== ENCOUNTER → 2016-11-23 | Outpatient (CLI) | payer OTHER ==
[2016-11-04 11:00] VITALS: BP 125/69
== END | disposition home or self-care (01) ==
LOC: PMGWOUND 10:25
PROVIDERS: ATTEND Emergency Medicine Undersea and Hyperbaric Medicine
DX: E11.621 Type 2 diabetes mellitus with foot ulcer (principal); L97.521 Non-pressure chronic ulcer of other part of left foot limited to breakdown of skin; E11.69 Type 2 diabetes mellitus with other specified complication; M86.8X8 Other osteomyelitis, other site; I48.91 Unspecified atrial fibrillation; F17.210 Nicotine dependence, cigarettes, uncomplicated
CPT/HCPCS: 11042; 97605

== ENCOUNTER → 2016-11-30 | Outpatient (CLI) | payer OTHER ==
[2016-11-04 11:00] VITALS: BP 125/69
== END | disposition home or self-care (01) ==
LOC: PMGWOUND 12:51
PROVIDERS: ATTEND Emergency Medicine Undersea and Hyperbaric Medicine
DX: T87.89 Other complications of amputation stump (principal); E11.621 Type 2 diabetes mellitus with foot ulcer; L97.524 Non-pressure chronic ulcer of other part of left foot with necrosis of bone; E11.69 Type 2 diabetes mellitus with other specified complication; M86.8X7 Other osteomyelitis, ankle and foot; I48.91 Unspecified atrial fibrillation; F17.210 Nicotine dependence, cigarettes, uncomplicated; Z89.431 Acquired absence of right foot
CPT/HCPCS: 11042; 97605

== ENCOUNTER → 2016-12-03 | Outpatient (CLI) | payer OTHER ==
[2016-11-04 11:00] VITALS: BP 125/69
== END | disposition home or self-care (01) ==
LOC: OPS 09:52
PROVIDERS: ATTEND Internal Medicine
DX: Z51.89 Encounter for other specified aftercare (principal); R21 Rash and other nonspecific skin eruption; M62.81 Muscle weakness (generalized); D64.9 Anemia, unspecified; E11.44 Type 2 diabetes mellitus with diabetic amyotrophy; E11.621 Type 2 diabetes mellitus with foot ulcer; E46 Unspecified protein-calorie malnutrition; E86.0 Dehydration; E87.2 Acidosis; E87.6 Hypokalemia; F17.200 Nicotine dependence, unspecified, uncomplicated; I48.0 Paroxysmal atrial fibrillation; I50.32 Chronic diastolic (congestive) heart failure; I73.9 Peripheral vascular disease, unspecified; I95.1 Orthostatic hypotension; J44.9 Chronic obstructive pulmonary disease, unspecified; I12.0 Hypertensive chronic kidney disease with stage 5 chronic kidney disease or end stage renal disease
CPT/HCPCS: 99211

== ENCOUNTER → 2016-12-07 | Outpatient (CLI) | payer OTHER | END | disposition home or self-care (01) | LOC: PMGWOUND 10:30 | PROVIDERS: ATTEND Emergency Medicine Undersea and Hyperbaric Medicine | DX: T87.89 Other complications of amputation stump (principal); E11.621 Type 2 diabetes mellitus with foot ulcer; L97.524 Non-pressure chronic ulcer of other part of left foot with necrosis of bone; I48.91 Unspecified atrial fibrillation; E11.69 Type 2 diabetes mellitus with other specified complication; M86.8X7 Other osteomyelitis, ankle and foot; Z89.431 Acquired absence of right foot; F17.210 Nicotine dependence, cigarettes, uncomplicated; Y83.5 Amputation of limb(s) as the cause of abnormal reaction of the patient, or of later complication, without mention of misadventure at the time of the procedure | CPT/HCPCS: 11042; 97605 ==

== ENCOUNTER 2016-12-11 07:46 | Emergency (ER) | payer OTHER ==
--- NOTE | 2016-12-11 08:08 | PHYS DOC ---
Past Medical History Past Medical History: Diabetes-Type II, Hypotension Past Surgical History: Other Additional Past Surgical Histo: right foot bone scraping, R FOOT TOES AMPUTATION, L FOOT TOES AMPUTATION Alcohol Use: None Drug Use: None Adult General Chief Complaint Chief Complaint: CPR/FULL ARREST HPI HPI Patient is a 71 year old male who presents with cardiac arrest. Patient was at the detention reportedly had a low blood sugar and was giving some form of sugar. When they return to recheck his sugar, the patient was unresponsive and had no pulse. CPR was initiated by staff at the detention, reportedly at 710. EMS arrived at 720, patient remained in asystole. Upon arrival the patient continued to be in asystole. He received 1 round of epi in the field. Here in the ER he received another round of epi. He remained to be in asystole. His total down time was 30 minutes, therefore the code was called. Sugar was 117 Review of Systems Review of Systems Unavailable due to medical condition Allergies Allergies Allergies Coded Allergies Type Severity Reaction Last Updated Verified Tetanus Vaccines and Toxoid Allergy Intermediate 12/03/16 Yes Physical Exam Physical Exam Constitutional: Well developed, pale, cyanotic appearing HENT: Normocephalic, atraumatic, ET tube in place Eyes: no discharge. [] Neck: Trachea midline Cardiovascular: Pulseless Lungs & Thorax: No active breathing Abdomen: Soft Skin: Warm, dry, pale Extremities: bilateral partial foot amputation Neurologic: unresponsive EKG EKG [] Radiology/Procedures Radiology/Procedures [] Course & Med Decision Making Course & Med Decision Making Pertinent Labs and Imaging studies reviewed. (See chart for details) MA was continued. Patient was placed on the monitor. 1 mg IB epi was given. Patient was bagged through his ET tube. Patient continued to be in asystole, now down for 30 minutes without any improvement. Therefore the total was called. Dragon Disclaimer Dragon Disclaimer This electronic medical record was generated, in whole or in part, using a voice recognition dictation system. Departure Departure Impression: Primary Impression: Cardiac arrest Disposition: 20 Condition: Referrals: ALCIRA TYSON MD (PCP) JOHNATHON BERKOWITZ MD Dec 11, 2016 08:08
[2016-12-12] MEDS ORDERED: EPINEPHrine SYRINGE 1 MG/10 ML SYRINGE ONE
[2016-12-12] MEDS ORDERED: SODIUM BICARB ADULT 8.4% 50 MEQ/50 ML DISP.SYRIN. ONE
== END 2016-12-11 07:49 ==
LOC: ER 07:46
DX: I46.9 Cardiac arrest, cause unspecified (principal); E11.9 Type 2 diabetes mellitus without complications; Z89.9 Acquired absence of limb, unspecified; Z88.7 Allergy status to serum and vaccine
CPT/HCPCS: 99285; J0171